=== PATIENT | male | born 1935 | race Caucasian/White ===

== ENCOUNTER 2017-10-14 19:23 | Inpatient (IN) | payer OTHER, BC ==
--- NOTE | 2017-10-14 21:11 | PDOC ---
History of Present Illness - General History Source: Patient Exam Limitations: No Limitations - History of Present Illness Initial Comments: 10/14/17 22:07 The patient is a 81 year old male with past medical history of Afib, CAD, CHF, HTN, Sleep Apnea, Renal Calculi and Diabetes Insipidus, who's currently on blood thinners, presents to the emergency department accompanied by her and son complaining of resolved nose bleeding. The patient reports he was picking his nose when the bleeding started, the son states they were unable to control the bleeding resulting in seeking care. The patients reports he was spitting up blood which can be secondary to the blood traveling to his mouth. The patient reports swelling to his lower extremities which started about 2 weeks ago. The patients reports they been to a wound clinic due to the drainage and was prescribed fluocinonide. The patients reports they have seen Dr. Lindsay for the foot swelling and was prescribed Lasix.The patient isnt on an oxygen machine at home.The reports he had a surgery on his leg with plates present. The patient denies chest pain, shortness of breath, headache and dizziness. Denies fever, chills, nausea, vomit, diarrhea and constipation. Denies dysuria, frequency, urgency and hematuria. Allergies: NKA Past surgical history: hypercholesterolemia. Social history: No reported PCP: Dr. Lindsay Ophthalmic Nurse: Dr. Mcdaniel <Shama Rowley - Last Filed: 10/14/17 22:17> <Zoila Harvey - Last Filed: 10/14/17 23:59> - General Chief Complaint: Nasal Bleeding Stated Complaint: NOSE BLEED Time Seen by Provider: 10/14/17 21:08 Past History <Shama Rowley - Last Filed: 10/14/17 22:17> - Past Medical History Cardiac Disorders: Yes (afib chf heart failure) Diabetes: Yes HTN: Yes Hypercholesterolemia: Yes - Surgical History Cardiac Surgery: Yes (pacemaker) - Immunization History Td Vaccination: Yes Immunization Up to Date: Yes - Suicide/Smoking/Psychosocial Hx Smoking Status: No Smoking History: Never smoked Years of Tobacco Use: 0 Have you smoked in the past 12 months: No Number of Cigarettes Smoked Daily: 0 Cigars Per Day: 0 Hx Alcohol Use: No Drug/Substance Use Hx: No Substance Use Type: None Hx Substance Use Treatment: No <Zoila Harvey - Last Filed: 10/14/17 23:59> - Past Medical History Allergies/Adverse Reactions: Allergies Allergy/AdvReac Type Severity Reaction Status Date / Time No Known Drug Allergies Allergy Verified 10/14/17 22:35 Home Medications: Ambulatory Orders Carvedilol [Coreg -] 25 mg PO BID #0 tablet 11/16/12 Digoxin [Lanoxin -] 0.125 mg PO DAILY #0 tablet 11/16/12 Enalapril Maleate [Vasotec -] 5 mg PO DAILY #0 tablet 11/16/12 Rivaroxaban [Xarelto -] 20 mg PO DAILY #0 tablet 11/16/12 Sitagliptin Phosphate [Januvia -] 100 mg PO DAILY@0700 #0 ud 11/16/12 metFORMIN HCL [Glucophage -] 1,000 mg PO BIDAC #0 tablet 11/16/12 Atorvastatin Ca [Lipitor -] 10 mg PO ASDIR 11/12/14 Furosemide [Lasix -] 40 mg PO BID 11/12/14 Glyburide [Micronase -] 5 mg PO BID 11/12/14 Oxycodone HCl/Acetaminophen [Percocet 5/325 -] 1 - 2 tab PO Q6H #20 tab Review of Systems - Review of Systems Comments:: 10/14/17 22:17 GENERAL/CONSTITUTIONAL: Little lethargic.. No fever or chills. No weakness. HEAD, EYES, EARS, NOSE AND THROAT: (+) Nose bleeding. No change in vision. No ear pain or discharge. No sore throat. CARDIOVASCULAR: No chest pain or shortness of breath. RESPIRATORY: No cough, wheezing, or hemoptysis. GASTROINTESTINAL: No nausea, vomiting, diarrhea or constipation. GENITOURINARY: No dysuria, frequency, or change in urination. MUSCULOSKELETAL: (+) swelling and redness to both legs. No neck or back pain. SKIN: No rash NEUROLOGIC: No headache, vertigo, loss of consciousness, or change in strength/ sensation. ENDOCRINE: No increased thirst. No abnormal weight change. HEMATOLOGIC/LYMPHATIC: No anemia, easy bleeding, or history of blood clots. ALLERGIC/IMMUNOLOGIC: No hives or skin allergy. <Shama Rowley - Last Filed: 10/14/17 22:17> *Physical Exam - Vital Signs Last Vital Signs Temp Pulse Resp BP Pulse Ox 98.7 F 63 17 105/55 99 10/14/17 21:05 10/14/17 21:05 10/14/17 21:05 10/14/17 21:05 10/14/17 21:05 - Physical Exam Comments: 10/14/17 22:17 GENERAL: (+) sleepy but arousal. Awake, alert, and fully oriented, in no acute distress HEAD: No signs of trauma EYES: PERRLA, EOMI, sclera anicteric, conjunctiva clear ENT: (+) Simultaneously bleeding from both nares (+) Old blood on the posterior pharynx. Auricles normal inspection, hearing grossly normal, nares patent, Moist mucosa NECK: Normal ROM, supple, no lymphadenopathy, JVD, or masses LUNGS: Breath sounds equal, clear to auscultation bilaterally. No wheezes, and no crackles HEART: (+) Irregularly irregular. normal S1 and S2, no murmurs, rubs or gallops ABDOMEN: Soft, nontender, normoactive bowel sounds. No guarding, no rebound. No masses EXTREMITIES: (+)Lymphangitis on the left. (+) Bilateral lower leg edema. Left larger than right in warmth, redness and swelling. No clubbing or cyanosis. No cords, erythema, or tenderness NEUROLOGICAL: Cranial nerves II through XII grossly intact. SKIN: Warm, Dry, normal turgor, no rashes or lesions noted. <Shama Rowley - Last Filed: 10/14/17 22:17> Heart Score/ECG Review - ECG Intrepretation Comment:: 10/14/17 23:28 afib at 63, rbbb, pvc, no acute changes <Zoila Harvey - Last Filed: 10/14/17 23:59> ED Treatment Course - LABORATORY CBC & Chemistry Diagram: 10/14/17 20:22 10/14/17 20:22 <Zoila Harvey - Last Filed: 10/14/17 23:59> Medical Decision Making - Medical Decision Making 10/14/17 21:51 a/p: 81yo male with nasal bleeding on xarelto - nut also with sleepiness, noncompliant with cpap, LE edema/cellulitis with lymphangitic spread -will check labs -no active nasal bleeding at this time -old dried blood -concern for LE edema/cellulitis with lymphangitic spread -will check labs/cultures/lactate/vbg -will start abx - vanc/zosyn -will check ekg, cxr -will monitor and reassess 10/14/17 23:24 pt with mild hypercapnic resp failure -will give nebs -labs reviewed abx ordered cultures sent will need admission for further eval 10/14/17 23:26 will give lasix also for leg edema 10/14/17 23:59 case discussed with Luda from - accepts pt to service <Zoila Harvey - Last Filed: 10/14/17 23:59> *DC/Admit/Observation/Transfer - Attestations Scribe Attestion: 10/14/17 22:18 Documentation prepared by Shama Rowley, acting as medical hospital sales for Zoila Harvey DO. <Shama Rowley - Last Filed: 10/14/17 22:17> - Discharge Dispostion Admit: Yes - Attestations Physician Attestion: 10/14/17 23:26 I, Dr. Zoila Harvey DO, attest that this document has been prepared under my direction and personally reviewed by me in its entirety. I further attest, that it accurately reflects all work, treatment, procedures and medical decision -making performed by me. <Zoila Harvey - Last Filed: 10/14/17 23:59> Diagnosis at time of Disposition: Hypercapnic acidosis, Cellulitis - Discharge Dispostion Condition at time of disposition: Fair - Referrals Referrals: Stanislav Lindsay MD [Primary Care Provider] -
[2017-10-14] MEDS ORDERED: VANCOMYCIN 1,000 MG in DEXTROSE 5%-WATER - 250 ML IVPB ONE (21:21)
[2017-10-14] MEDS ORDERED: VANCOMYCIN 1 GRAM (PRE-DOCKED) 1,000 MG/250 ML BAG IVPB ONE (21:58)
[2017-10-14 22:29] LABS: BASO % 0.3 % (0-2.0); EOS % 2.7 % (0-4.5); HEMATOCRIT 32.3 % (35.4-49); HEMOGLOBIN 10.9 GM/dL (11.7-16.9); LYMPH % 14.3 % (8-40); MCH 29.2 pg (25.7-33.7); MCHC 33.7 g/dl (32.0-35.9); MEAN CELL VOLUME 86.6 fl (80-96); MEAN PLT VOLUME 10.2 fl (7.5-11.1); NEUT % 71.7 % (42.8-82.8); PLATELET COUNT 133 K/MM3 (134-434); RBC 3.73 M/mm3 (4.00-5.60)
[2017-10-14 22:32] LABS: URINE APPEARANCE CLEAR; URINE BILIRUBIN NEGATIVE (<2.0 mg/dL); URINE COLOR LTYELLOW; URINE GLUCOSE (UA) NEGATIVE (NEGATIVE); URINE KETONE NEGATIVE (NEGATIVE); URINE LEUK ESTERASE NEGATIVE (NEGATIVE); URINE NITRITE NEGATIVE (NEGATIVE); URINE PROTEIN NEGATIVE (NEGATIVE)
[2017-10-14 22:37] LABS: EPI CELLS RARE /HPF (FEW); URINE HYALINE CAST 3 /lpf; URINE MUCUS RARE
[2017-10-14 22:45] LABS: INR 2.44 (0.82-1.09); PROTHROMBIN TIME (PATIENT) 27.6 SEC (9.98-11.88)
[2017-10-14 22:48] LABS: ACTIVATED PTT 45.1 SECONDS (26.9-34.4)
[2017-10-14 23:00] LABS: VENOUS PC02 56.4 mmHg (38-52); VENOUS PH 7.34 (7.32-7.42); VENOUS PO2 24.6 mmHg (28-48)
[2017-10-14 23:04] LABS: ALBUMIN 3.7 g/dl (3.4-5.0); ALK PHOS 197 U/L (45-117); ANION GAP 8 (8-16); BILIRUBIN,TOTAL 1.1 mg/dL (0.2-1.0); BLOOD UREA NITROGEN 38 mg/dL (7-18); CALCIUM 8.6 mg/dL (8.5-10.1); CHLORIDE 101 mmol/L (98-107); CO2 29 mmol/L (21-32); CREATININE 1.3 mg/dL (0.7-1.3); GLUCOSE,RANDOM 99 mg/dL (74-106); POTASSIUM 4.6 mmol/L (3.5-5.1); SGOT/AST 19 U/L (15-37); SGPT/ALT 16 U/L (12-78); SODIUM 138 mmol/L (136-145); TOT PROT 7.3 g/dl (6.4-8.2)
[2017-10-14] MEDS ORDERED: ALBUTEROL SO4 2.5/IPRATROPIUM 0.5 INH SOL 3 ML VIAL.NEB. NEB ONE ×2 (23:23→23:55)
[2017-10-14] MEDS ORDERED: FUROSEMIDE 40 MG/4 ML INJECTABLE VIAL IVPUSH ONE (23:27)
[2017-10-14] MEDS ORDERED: FUROSEMIDE 40 MG/4 ML INJECTABLE VIAL ONE (23:55)
[2017-10-15] MEDS ORDERED: ATORVASTATIN CA 20 MG TABLET (FP) PO SCH (00:30)
[2017-10-15] MEDS ORDERED: AMPICILLIN NA/SULBACTAM NA 1.5 GM in SODIUM CHLORIDE 100 ML IVPB SCH ×2 (00:45→08:59)
--- NOTE | 2017-10-15 01:17 | HP ---
CHIEF COMPLAINT: nose bleed PCP: HISTORY OF PRESENT ILLNESS: This is a 81 year old obese, non compliant male with a significant medical history of chf, atrial fibrillation on xarelto, who presented to ER due to nosebleed. Patient was picking his nose and as per family, would not stop bleeding. Bleeding stopped while in ER. Upon PE exam in ER, there was were concern for bilateral LE erythema and swelling. As per family he has not been ambulating well. He has been having the swelling for a few weeks. The erythema has been progressing for the past few days. He saw his primary for this reason and was told to increase his lasix dose. He denies fever, chills, any history of skin infection. He has been treated in wound clinic in the past for LE ulcer , 1 yr ago. ER course was notable for: elevated bnp; CXR with cardiomegaly and right effusion; slight hypercapnia on vbg Recent Travel: no PAST MEDICAL HISTORY: chf, atrial fibrillation on xarelto, DM, htn, hld, CONSTANTINO PAST SURGICAL HISTORY: Social History: Smoking:no Alcohol:no Drugs: no Family History: Allergies No Known Drug Allergies Allergy (Verified 10/14/17 22:35) HOME MEDICATIONS: Home Medications Medication Instructions Recorded Carvedilol [Coreg -] 25 mg PO BID #0 tablet 11/16/12 Digoxin [Lanoxin -] 0.125 mg PO DAILY #0 tablet 11/16/12 Enalapril Maleate [Vasotec -] 5 mg PO DAILY #0 tablet 11/16/12 Rivaroxaban [Xarelto -] 20 mg PO DAILY #0 tablet 11/16/12 Sitagliptin Phosphate [Januvia -] 100 mg PO DAILY@0700 #0 ud 11/16/12 metFORMIN HCL [Glucophage -] 1,000 mg PO BIDAC #0 tablet 11/16/12 Atorvastatin Ca [Lipitor -] 10 mg PO ASDIR 11/12/14 Furosemide [Lasix -] 40 mg PO BID 11/12/14 Glyburide [Micronase -] 5 mg PO BID 11/12/14 Oxycodone HCl/Acetaminophen 1 - 2 tab PO Q6H #20 tab 01/15/15 [Percocet 5/325 -] REVIEW OF SYSTEMS CONSTITUTIONAL: Absent: fever, chills, diaphoresis, generalized weakness, malaise, loss of appetite, weight change HEENT: Absent: rhinorrhea, nasal congestion, throat pain, throat swelling, difficulty swallowing, mouth swelling, ear pain, eye pain, visual changes CARDIOVASCULAR: Positive: LE edema Absent: chest pain, syncope, palpitations, irregular heart rate, lightheadedness RESPIRATORY: Positive: dyspnea with exertion, orthopnea Absent: cough, shortness of breath,, wheezing, stridor, hemoptysis GASTROINTESTINAL: Absent: abdominal pain, abdominal distension, nausea, vomiting, diarrhea, constipation, melena, hematochezia GENITOURINARY: Absent: dysuria, frequency, urgency, hesitancy, hematuria, flank pain, genital pain MUSCULOSKELETAL: Absent: myalgia, arthralgia, joint swelling, back pain, neck pain SKIN: Positive: LE redness, Absent: rash, itching, pallor HEMATOLOGIC/IMMUNOLOGIC: Absent: easy bleeding, easy bruising, lymphadenopathy, frequent infections ENDOCRINE: Absent: unexplained weight gain, unexplained weight loss, heat intolerance, cold intolerance NEUROLOGIC: Absent: headache, focal weakness or paresthesias, dizziness, unsteady gait, seizure, mental status changes, bladder or bowel incontinence PSYCHIATRIC: Absent: anxiety, depression, suicidal or homicidal ideation, hallucinations. PHYSICAL EXAMINATION Vital Signs - 24 hr 10/14/17 10/15/17 21:05 00:05 Temperature 98.7 F 97.6 F Pulse Rate 63 Pulse Rate [ 63 Apical] Respiratory 17 17 Rate Blood Pressure 105/55 Blood Pressure 106/56 [Right Arm] O2 Sat by Pulse 99 93 L Oximetry (%) GENERAL: obese; sitting up in bed; Awake, kind of slow to answer questions Nose: crusted dried blood LUNGS: very decreased bs; no air movement; may be body habitus; HEART: Regular rate and rhythm, normal S1 and S2 without murmur, rub or gallop. ABDOMEN: obese; nt; nd; bs+ UPPER EXTREMITIES: 2+ pulses, warm, well-perfused. No cyanosis. No clubbing. No peripheral edema. LOWER EXTREMITIES: 2+ pulses, warm, well-perfused. No calf tenderness. bilateral peripheral edema with erythema extending to b/l knee; left LE swelling > right ; NEUROLOGICAL: Cranial nerves II-XII intact. decreased sensation of the right foot; muscle strength of LE 3/5; UE muscle groups 5/5; reflexes no attainable due to swelling; pedal pulses not palpable PSYCHIATRIC: Cooperative. Good eye contact. Appropriate mood and affect. SKIN: b/l LE erythema Laboratory Results - last 24 hr 10/14/17 10/14/17 10/14/17 20:22 20:22 20:22 WBC 9.0 RBC 3.73 L Hgb 10.9 L D Hct 32.3 L D MCV 86.6 MCH 29.2 MCHC 33.7 RDW 17.0 H Plt Count 133 L MPV 10.2 Neutrophils % 71.7 Lymphocytes % 14.3 Monocytes % 11.0 H Eosinophils % 2.7 D Basophils % 0.3 PT with INR 27.60 H INR 2.44 H PTT (Actin FS) 45.1 H D VBG pH POC VBG pCO2 POC VBG pO2 Mixed VBG HCO3 Sodium 138 Potassium 4.6 Chloride 101 Carbon Dioxide 29 D Anion Gap 8 BUN 38 H D Creatinine 1.3 D Creat Clearance w eGFR 53.25 Random Glucose 99 D Lactic Acid Calcium 8.6 Total Bilirubin 1.1 H D AST 19 ALT 16 D Alkaline Phosphatase 197 H Creatine Kinase Troponin I B-Natriuretic Peptide Total Protein 7.3 D Albumin 3.7 D Urine Color Urine Appearance Urine pH Ur Specific [place] Urine Protein Urine Glucose (UA) Urine Ketones Urine Blood Urine Nitrite Urine Bilirubin Urine Urobilinogen Ur Leukocyte Esterase Urine WBC (Auto) Urine RBC (Auto) Ur Epithelial Cells Hyaline Casts Urine Mucus Blood Type Antibody Screen 10/14/17 10/14/17 10/14/17 20:22 20:22 20:22 WBC RBC Hgb Hct MCV MCH MCHC RDW Plt Count MPV Neutrophils % Lymphocytes % Monocytes % Eosinophils % Basophils % PT with INR INR PTT (Actin FS) VBG pH POC VBG pCO2 POC VBG pO2 Mixed VBG HCO3 Sodium Potassium Chloride Carbon Dioxide Anion Gap BUN Creatinine Creat Clearance w eGFR Random Glucose Lactic Acid Calcium Total Bilirubin AST ALT Alkaline Phosphatase Creatine Kinase 86 Troponin I < 0.02 D B-Natriuretic Peptide Total Protein Albumin Urine Color Ltyellow Urine Appearance Clear Urine pH 5.0 Ur Specific [place] 1.010 Urine Protein Negative Urine Glucose (UA) Negative Urine Ketones Negative Urine Blood 3+ H Urine Nitrite Negative Urine Bilirubin Negative Urine Urobilinogen 2.0 Ur Leukocyte Esterase Negative Urine WBC (Auto) 3 Urine RBC (Auto) 180 Ur Epithelial Cells Rare Hyaline Casts 3 Urine Mucus Rare Blood Type A POSITIVE Antibody Screen Negative 10/14/17 10/14/17 10/14/17 20:22 20:22 22:28 WBC RBC Hgb Hct MCV MCH MCHC RDW Plt Count MPV Neutrophils % Lymphocytes % Monocytes % Eosinophils % Basophils % PT with INR INR PTT (Actin FS) VBG pH 7.34 POC VBG pCO2 56.4 H POC VBG pO2 24.6 L Mixed VBG HCO3 29.3 H Sodium Potassium Chloride Carbon Dioxide Anion Gap BUN Creatinine Creat Clearance w eGFR Random Glucose Lactic Acid 1.1 Calcium Total Bilirubin AST ALT Alkaline Phosphatase Creatine Kinase Troponin I B-Natriuretic Peptide 1679.42 H Total Protein Albumin Urine Color Urine Appearance Urine pH Ur Specific [place] Urine Protein Urine Glucose (UA) Urine Ketones Urine Blood Urine Nitrite Urine Bilirubin Urine Urobilinogen Ur Leukocyte Esterase Urine WBC (Auto) Urine RBC (Auto) Ur Epithelial Cells Hyaline Casts Urine Mucus Blood Type Antibody Screen ASSESSMENT/PLAN: This is a 81 year old male, who is somewhat non complaint according to his family, with a history of chf, DM, atrial fib on xarelto, who presented with a nosebleed which resolved, but found to have significant LE swelling and erythema. Looks to be more of a venous insufficiency with possible dvt, and cellulitis. #bilateral LE swelling and erythema: -will get venous doppler to r/o dvt -arterial dopplers to eval for vascular disease -IV lasix; r/o acute chf -vascular consult -will treat for cellulitis with IV unasyn; no hx of Mrsa or any other skin infection -consult id #nosebleed resolved; cont xarelto #atrial fibrillation -cont AC -rate controlled #chf; acute exacerbation? -slightly elevated bnp -auscultation limited due to body habitus -cxr with right effusion and cardio megaly -will treat for a day of IV lasix; monitor cr; -echo -cardio consulted #elevated co2 on vbg -most lieky chronic due to CONSTANTINO -cpap overnight #htn: -cont home meds #DM: -insulin ss; bgm #hld : cont statin DVT: heparin sq physical therapy disposition: inpt tele Visit type - Emergency Visit Emergency Visit: Yes Care time: The patient presented to the Emergency Department on the above date and was hospitalized for further evaluation of their emergent condition. - New Patient This patient is new to me today: Yes Date on this admission: 10/15/17 - Critical Care Critical Care patient: No Hospitalist Screening - Colonoscopy Questionnaire Colonoscopy Questionnaire: Colonoscopy Questionnaire - Patient: 50 - 75 years old and never had a screening colonoscopy: Unknown History of colon or rectal polyps, or CA: Unknown History of IBD, Crohn's disease or UC: Unknown History of abdominal radiation therapy as a child: Unknown - Relative: 1 with colon or rectal CA, or polyps at age 60 or younger: Unknown Colon or rectal CA diagnosed at age 45 or younger: Unknown Multiple relatives with colon or rectal CA: Unknown - Outcome: Screening Result: Negative Screen
[2017-10-15] MEDS ORDERED: ATORVASTATIN CA 80 MG TABLET (FP) ONE (01:30)
--- NOTE | 2017-10-15 02:45 | PN ---
Teaching Attending Note Name of Resident: Kelsey Sarkar ATTENDING PHYSICIAN STATEMENT I saw and evaluated the patient. I reviewed the resident's note and discussed the case with the resident. I agree with the resident's findings and plan as documented. SUBJECTIVE: 81M pmh CHF Afib presents to ER with epistaxis that has since spontaneously resolved. Was fue to mechanical trauma from picking at nose. In ED he is found to have significant LE swelling and redness of the left leg that patietn reports has been going on for a few days now. OBJECTIVE: Gen: NAD AAOx3 Lungs: decreased BS bilaterally, obese CV: cardiac device SAMUEL chest wall, RRR no m/r/g Abd: soft, NTND Ext: 3+ edema bilaterally L>R. erythema of left lower leg with spreading up the inner thigh BNP 1600 CXR: Rt side opacities ASSESSMENT AND PLAN: 81M with possible cellulitis LLE , not septic, mild decompensated HF, and resolved epistaxis likely from Xarelto start IV Unasyn, ID eval follow up venous doppler to r/o DVT Vascular surgery eval start IV lasix 40q12 ECHO Afib - continue xarelto, Cardiology eval
[2017-10-15 04:58] VITALS: BMI 37.3
[2017-10-15] MEDS ORDERED: FUROSEMIDE 40 MG/4 ML INJECTABLE VIAL IVPUSH SCH (06:00)
[2017-10-15] MEDS: INSULIN SLIDING SCALE (NOVOLOG) 1 VIAL SQ SCH ×4 (06:54→21:44)
[2017-10-15] MEDS ORDERED: INSULIN SLIDING SCALE (NOVOLOG) 1 VIAL SQ SCH (07:00)
--- NOTE | 2017-10-15 09:01 | PN ---
Progress Note (short form) - Note Progress Note: ID consult dictated imp/reccd 81 year old man [facility] afib, CAD, CHF on elequis admitted with a nosebleed that stopped spontaneously of note he has had worsening swelling of both legs over the last several weeks no fevers or chills +erythema saw his PMD who increased his lasix dose went to woundcare and was given steroid creams? now with increased erythema of both legs no fevers no history of resistant organisms denies cough or sob sleeps with 2-3 pillws chronically cellulitis volume overload/venous stasis CHF cultures pending can switch to cefazoliln elevate legs diurese cardiology/vascular to see Problem List - Problems (1) Cellulitis Code(s): L03.90 - CELLULITIS, UNSPECIFIED (2) Volume overload Code(s): E87.70 - FLUID OVERLOAD, UNSPECIFIED (3) Venous stasis Code(s): I87.8 - OTHER SPECIFIED DISORDERS OF VEINS (4) CHF (congestive heart failure) Code(s): I50.9 - HEART FAILURE, UNSPECIFIED
--- NOTE | 2017-10-15 09:52 | EKG ---
Test Reason : Blood Pressure : / mmHG Vent. Rate : 061 BPM Atrial Rate : 241 BPM P-R Int : 000 ms QRS Dur : 156 ms QT Int : 486 ms P-R-T Axes : 000 -70 017 degrees QTc Int : 489 ms ATRIAL FIBRILLATION WITH PREMATURE VENTRICULAR OR ABERRANTLY CONDUCTED COMPLEXES LEFT AXIS DEVIATION RIGHT BUNDLE BRANCH BLOCK INFERIOR INFARCT (CITED ON OR BEFORE 13-SEP-2006) ANTERIOR INFARCT (CITED ON OR BEFORE 22-MAY-2011) ABNORMAL ECG Confirmed by CALLIE HILL MD ([id number]) on 10/15/2017 9:51:58 AM Referred By: Confirmed By:CALLIE HILL MD
--- NOTE | 2017-10-15 09:57 | CONS ---
DATE OF CONSULTATION: DATE OF DICTATION: 10/15/2017 REQUESTING PHYSICIAN: The hospitalist service. This is a 81-year-old man with a past medical history of atrial fibrillation, CAD, CHF on Eliquis. He presented to the ER with a nosebleed after he had apparently been touching his nose. The nosebleed stopped spontaneously. He was noted to have bilateral erythema of his legs which has been worsening. About 2-3 weeks back he saw his PMD with worsening lower extremity edema. His Lasix dose was increased. He went to Wound Care as well because he had some drainage. They gave him apparently some topical steroids. He noted worsening erythema, but he came to the ER really for the nosebleed. He denies any fevers or chills. He denies any cough or shortness of breath. He sleeps with 2-3 pillows chronically. PAST MEDICAL HISTORY: Notable for history of atrial fibrillation, coronary artery disease, diabetes, hypertension, hyperlipidemia, obstructive sleep apnea, and nephrolithiasis. PAST SURGICAL HISTORY: Notable for pacemaker as well as he has had a left ankle fracture many years ago. FAMILY HISTORY: Noncontributory. ALLERGIES: He has no known drug allergies. MEDICATIONS: His medications at home include Coreg, Lanoxin, Vasotec, Xarelto, Januvia, Glucophage, Lipitor, Lasix, Micronase, and Percocet. SOCIAL HISTORY: There is no history of any cigarette or substance use. He is retired. He lives at home with his . There is no history of any recent travel. REVIEW OF SYSTEMS: He notes worsening edema of his legs. PHYSICAL EXAMINATION: General: He is awake and alert. Vital Signs: Temperature is 98.6. Pulse is 73. Blood pressure 112/59. Respiratory rate is 19. He weighs 275 pounds. Saturating 96% on room air. HEENT: He is normocephalic. His eyes are anicteric. He has some dried blood crusted on his nose. His mouth is clear. There is no blood in his mouth. Cardiovascular: His heart is irregularly irregular. Respiratory: His lungs have diminished breath sounds at the bases. Gastrointestinal: His abdomen is protuberant, obese. I cannot appreciate any hepatosplenomegaly. Extremities: He has 2+ pitting edema bilaterally extending up to below his knees. He has venous stasis changes and erythema of both legs. LABORATORY: His labs are notable for a white count of 9, hemoglobin 10.9. Platelets are 133. BUN and creatinine are 38 and 1.3. Lactic acid is 1.1. Urinalysis is negative for leukocyte esterase. Cultures are pending. Duplex is negative for DVT. SUMMARY: This is a 81-year-old man with cellulitis, volume overload, venous stasis, and congestive heart failure. Cultures are pending. Can switch him to cefazolin. There is no history of resistant organisms. Would elevate his legs, diurese. Cardiology and Vascular to see. Further recommendations to follow based on his clinical course. ARGENIS BENITEZ M.D. [id number]
[2017-10-15] MEDS ORDERED: FUROSEMIDE 40 MG TABLET (FP) PO SCH (10:00)
[2017-10-15] MEDS: CEFAZOLIN 2 GM/D5W 2 GM/50 ML ML IVPB SCH ×2 (10:58→18:17)
[2017-10-15] MEDS: RIVAROXABAN 20 MG TABLET PO SCH (10:58)
[2017-10-15] MEDS: DIGOXIN 0.125 MG TABLET (FP) PO SCH (10:58)
[2017-10-15] MEDS: ENALAPRIL MALEATE 5 MG TABLET (FP) PO SCH (10:59)
[2017-10-15] MEDS: CARVEDILOL 25 MG TABLET (FP) PO SCH ×2 (10:59→21:44)
--- NOTE | 2017-10-15 11:23 | CON.CARD ---
Cardiology Consult (text) - Consultation Consultation Note: cc: nose bleed hpi: 81 m hx syst chf (bi-v failure, NICM), icd, afib, htn, hld, dm, here with nose bleed. Came to er due to nose bleed after picking nose. This resolved but noted to have b/l le cellulitis so admitted. Pt reports le edema present past 2 weeks. No cp, sob, palps, dizzy, loc, pnd, orthopnea. Sees dr davis for cardio. pmh: per hpi psh: icd social: no tob fam: no premature cad, scd ros: per hpi; no nvd, fver, cough, sahu, vision changes, gib, heamturia, dysuria meds: Home Medications Medication Instructions Recorded Atorvastatin Ca [Lipitor] 80 mg PO HS 10/15/17 Carvedilol [Coreg -] 25 mg PO BID 10/15/17 Digoxin [Lanoxin -] 0.125 mg PO DAILY 10/15/17 Enalapril Maleate [Vasotec -] 2.5 mg PO DAILY 10/15/17 Furosemide [Lasix] 80 mg PO BID 10/15/17 Glyburide 5 mg PO DAILY 10/15/17 Metformin HCl [Glucophage] 1,000 mg PO BID 10/15/17 Pioglitazone HCl 30 mg PO DAILY 10/15/17 Rivaroxaban [Xarelto -] 20 mg PO DAILY 10/15/17 Sitagliptin Phosphate [Januvia] 100 mg PO DAILY 10/15/17 pe: Vital Signs Period Temp Pulse Resp BP Sys/Lambert Pulse Ox Last 24 Hr 97.6 F-98.7 F 63-78 17-21 105-143/51-59 93-99 nad +jvd irreg, s1s2 no mrg dec bs bases, nl eff no jaundice diaphores pos dp pt 1-2+ le edema bl with b/l le cellulitis abd nt nd pos bs aaox3 Laboratory Last Values WBC 9.0 K/mm3 (4.0-10.0) 10/14/17 20:22 RBC 3.73 M/mm3 (4.00-5.60) L 10/14/17 20:22 Hgb 10.9 GM/dL (11.7-16.9) L D 10/14/17 20:22 Hct 32.3 % (35.4-49) L D 10/14/17 20:22 MCV 86.6 fl (80-96) 10/14/17 20: MCH 29.2 pg (25.7-33.7) 10/14/17 20: MCHC 33.7 g/dl (32.0-35.9) 10/14/17 20: RDW 17.0 % (11.9-15.9) H 10/14/17 20: Plt Count 133 K/MM3 (134-434) L 10/14/17 20: MPV 10.2 fl (7.5-11.1) 10/14/17 20: Neutrophils % 71.7 % (42.8-82.8) 10/14/17: Lymphocytes % 14.3 % (8-40) 10/14/17: Monocytes % 11.0 % (3.8-10.2) H 10/14/17: Eosinophils % 2.7 % (0-4.5) D 10/14/17: Basophils % 0.3 % (0-2.0) 10/14/17: PT with INR 27.60 SEC (9.98-11.88) H 10/14/17 20: INR 2.44 (0.82-1.09) H 10/14/17 20: PTT (Actin FS) 45.1 SECONDS (26.9-34.4) H D 10/14/17 20: VBG pH 7.34 (7.32-7.42) 10/14/17 20:22 POC VBG pCO2 56.4 mmHg (38-52) H 10/14/17 20:22 POC VBG pO2 24.6 mmHg (28-48) L 10/14/17 20: Mixed VBG HCO3 29.3 meq/L (19-25) H 10/14/17 20:22 Sodium 138 mmol/L (136-145) 10/14/17 20:22 Potassium 4.6 mmol/L (3.5-5.1) 10/14/17 20:22 Chloride 101 mmol/L (98-107) 10/14/17 20:22 Carbon Dioxide 29 mmol/L (21-32) D 10/14/17 20:22 Anion Gap 8 (8-16) 10/14/17 20:22 BUN 38 mg/dL (7-18) H D 10/14/17 20:22 Creatinine 1.3 mg/dL (0.7-1.3) D 10/14/17 20:22 Creat Clearance w eGFR 53.25 (>60) 10/14/17 20:22 POC Glucometer 85 UNITS (80-120) 10/15/17 05:13 Random Glucose 99 mg/dL (74-106) D 10/14/17 20:22 Lactic Acid 1.1 mmol/L (0.0-2.0) 10/14/17 22:28 Calcium 8.6 mg/dL (8.5-10.1) 10/14/17 20:22 Total Bilirubin 1.1 mg/dL (0.2-1.0) H D 10/14/17 20:22 AST 19 U/L (15-37) 10/14/17 20:22 ALT 16 U/L (12-78) D 10/14/17 20:22 Alkaline Phosphatase 197 U/L (45-117) H 10/14/17 20:22 Creatine Kinase 86 IU/L (39-308) 10/14/17 20:22 Troponin I < 0.02 ng/ml (0.00-0.05) D 10/14/17 20:22 B-Natriuretic Peptide 1679.42 pg/ml (5-450) H 10/14/17 20:22 Total Protein 7.3 g/dl (6.4-8.2) D 10/14/17 20:22 Albumin 3.7 g/dl (3.4-5.0) D 10/14/17 20:22 Urine Color Ltyellow 10/14/17 20:22 Urine Appearance Clear 10/14/17 20:22 Urine pH 5.0 (5.0-8.0) 10/14/17 20:22 Ur Specific Terrell 1.010 (1.001-1.035) 10/14/17 20:22 Urine Protein Negative (NEGATIVE) 10/14/17 20:22 Urine Glucose (UA) Negative (NEGATIVE) 10/14/17 20:22 Urine Ketones Negative (NEGATIVE) 10/14/17 20:22 Urine Blood 3+ (NEGATIVE) H 10/14/17 20:22 Urine Nitrite Negative (NEGATIVE) 10/14/17 20:22 Urine Bilirubin Negative (<2.0 mg/dL) 10/14/17 20:22 Urine Urobilinogen 2.0 mg/dL (0.2-1.0) 10/14/17 20:22 Ur Leukocyte Esterase Negative (NEGATIVE) 10/14/17 20:22 Urine WBC (Auto) 3 /hpf (3-5) 10/14/17 20:22 Urine RBC (Auto) 180 /hpf (0-3) 10/14/17 20:22 Ur Epithelial Cells Rare /HPF (FEW) 10/14/17 20:22 Hyaline Casts 3 /lpf 10/14/17 20: Urine Mucus Rare 10/14/17 20:22 Blood Type A POSITIVE 10/14/17 20:22 Antibody Screen Negative 10/14/17 20:22 echo 10/2012: lve, sev dec lvef, rve (no mention of fcn), laure, mod mr/tr tele: afib, occ vp data ecg: afib, rate ok, rbbb cxr: no chf a/p: 81 m hx syst chf (bi-v failure, NICM), icd, afib, htn, hld, dm, here with le cellulitis. acute syst chf: -has significant le edema with cellulitis (cont abx per ID) -cont iv lasix 40 bid, may need to increase dose depending on response to diuresis -daily wts, bmp -check updated echo -cont home dread, coreg, dig -routine outpt icd checks -no signs acs afib: -rate ok on dig, coreg. check dig level -cont xarelto htn: -cont home meds hld: -cont statin
--- NOTE | 2017-10-15 14:44 | PN ---
Physical Exam: SUBJECTIVE: Patient seen and examined No acute events overnight. Patient continues to have lower extremity edema. Nosebleeding has resolved OBJECTIVE: Vital Signs Period Temp Pulse Resp BP Sys/Lambert Pulse Ox Last 24 Hr 97.6 F-98.7 F 63-78 17-21 105-143/51-59 93-99 GENERAL: obese; sitting up in bed; Awake, kind of slow to answer questions Nose: crusted dried blood LUNGS: very decreased bs; b/l crackles @ both bases HEART: Irregularly irregular, normal S1 and S2 without murmur, rub or gallop. ABDOMEN: obese; nt; nd; bs+ UPPER EXTREMITIES: 2+ pulses, warm, well-perfused. No cyanosis. No clubbing. No peripheral edema. LOWER EXTREMITIES: 2+ pulses, warm, well-perfused. No calf tenderness. bilateral peripheral edema with erythema extending to b/l knee; Oozing from bl extremities NEUROLOGICAL: Cranial nerves II-XII intact. decreased sensation of the right foot; muscle strength of LE 3/5; UE muscle groups 5/5 PSYCHIATRIC: Cooperative. Good eye contact. Appropriate mood and affect. SKIN: b/l LE erythema Laboratory Results - last 24 hr 10/14/17 10/14/17 10/14/17 20:22 20:22 20:22 WBC 9.0 RBC 3.73 L Hgb 10.9 L D Hct 32.3 L D MCV 86.6 MCH 29.2 MCHC 33.7 RDW 17.0 H Plt Count 133 L MPV 10.2 Neutrophils % 71.7 Lymphocytes % 14.3 Monocytes % 11.0 H Eosinophils % 2.7 D Basophils % 0.3 PT with INR 27.60 H INR 2.44 H PTT (Actin FS) 45.1 H D VBG pH POC VBG pCO2 POC VBG pO2 Mixed VBG HCO3 Sodium 138 Potassium 4.6 Chloride 101 Carbon Dioxide 29 D Anion Gap 8 BUN 38 H D Creatinine 1.3 D Creat Clearance w eGFR 53.25 POC Glucometer Random Glucose 99 D Lactic Acid Calcium 8.6 Total Bilirubin 1.1 H D AST 19 ALT 16 D Alkaline Phosphatase 197 H Creatine Kinase Troponin I B-Natriuretic Peptide Total Protein 7.3 D Albumin 3.7 D Urine Color Urine Appearance Urine pH Ur Specific [place] Urine Protein Urine Glucose (UA) Urine Ketones Urine Blood Urine Nitrite Urine Bilirubin Urine Urobilinogen Ur Leukocyte Esterase Urine WBC (Auto) Urine RBC (Auto) Ur Epithelial Cells Hyaline Casts Urine Mucus Blood Type Antibody Screen 10/14/17 10/14/17 10/14/17 20:22 20:22 20:22 WBC RBC Hgb Hct MCV MCH MCHC RDW Plt Count MPV Neutrophils % Lymphocytes % Monocytes % Eosinophils % Basophils % PT with INR INR PTT (Actin FS) VBG pH POC VBG pCO2 POC VBG pO2 Mixed VBG HCO3 Sodium Potassium Chloride Carbon Dioxide Anion Gap BUN Creatinine Creat Clearance w eGFR POC Glucometer Random Glucose Lactic Acid Calcium Total Bilirubin AST ALT Alkaline Phosphatase Creatine Kinase 86 Troponin I < 0.02 D B-Natriuretic Peptide Total Protein Albumin Urine Color Ltyellow Urine Appearance Clear Urine pH 5.0 Ur Specific [place] 1.010 Urine Protein Negative Urine Glucose (UA) Negative Urine Ketones Negative Urine Blood 3+ H Urine Nitrite Negative Urine Bilirubin Negative Urine Urobilinogen 2.0 Ur Leukocyte Esterase Negative Urine WBC (Auto) 3 Urine RBC (Auto) 180 Ur Epithelial Cells Rare Hyaline Casts 3 Urine Mucus Rare Blood Type A POSITIVE Antibody Screen Negative 10/14/17 10/14/17 10/14/17 20:22 20:22 22:28 WBC RBC Hgb Hct MCV MCH MCHC RDW Plt Count MPV Neutrophils % Lymphocytes % Monocytes % Eosinophils % Basophils % PT with INR INR PTT (Actin FS) VBG pH 7.34 POC VBG pCO2 56.4 H POC VBG pO2 24.6 L Mixed VBG HCO3 29.3 H Sodium Potassium Chloride Carbon Dioxide Anion Gap BUN Creatinine Creat Clearance w eGFR POC Glucometer Random Glucose Lactic Acid 1.1 Calcium Total Bilirubin AST ALT Alkaline Phosphatase Creatine Kinase Troponin I B-Natriuretic Peptide 1679.42 H Total Protein Albumin Urine Color Urine Appearance Urine pH Ur Specific [place] Urine Protein Urine Glucose (UA) Urine Ketones Urine Blood Urine Nitrite Urine Bilirubin Urine Urobilinogen Ur Leukocyte Esterase Urine WBC (Auto) Urine RBC (Auto) Ur Epithelial Cells Hyaline Casts Urine Mucus Blood Type Antibody Screen 10/15/17 10/15/17 05:13 12:31 WBC RBC Hgb Hct MCV MCH MCHC RDW Plt Count MPV Neutrophils % Lymphocytes % Monocytes % Eosinophils % Basophils % PT with INR INR PTT (Actin FS) VBG pH POC VBG pCO2 POC VBG pO2 Mixed VBG HCO3 Sodium Potassium Chloride Carbon Dioxide Anion Gap BUN Creatinine Creat Clearance w eGFR POC Glucometer 85 111 Random Glucose Lactic Acid Calcium Total Bilirubin AST ALT Alkaline Phosphatase Creatine Kinase Troponin I B-Natriuretic Peptide Total Protein Albumin Urine Color Urine Appearance Urine pH Ur Specific [place] Urine Protein Urine Glucose (UA) Urine Ketones Urine Blood Urine Nitrite Urine Bilirubin Urine Urobilinogen Ur Leukocyte Esterase Urine WBC (Auto) Urine RBC (Auto) Ur Epithelial Cells Hyaline Casts Urine Mucus Blood Type Antibody Screen Active Medications Generic Name Dose Route Start Last Admin Trade Name Freq PRN Reason Stop Dose Admin Atorvastatin Calcium 10 mg 10/15/17 22:00 Lipitor - PO HS USHA Carvedilol 25 mg 10/15/17 10:00 10/15/17 10:59 Coreg - PO 25 mg BID USHA Administration Digoxin 0.125 mg 10/15/17 10:00 10/15/17 10:58 Lanoxin - PO 0.125 mg DAILY USHA Administration Enalapril Maleate 5 mg 10/15/17 10:00 10/15/17 10:59 Vasotec - PO 5 mg DAILY USHA Administration Furosemide 60 mg 10/15/17 14:00 Lasix Injection - IVPUSH BIDLASIX [facility] Cefazolin Sodium/Dextrose 2 gm in 50 mls @ 100 mls/hr 10/15/17 10:00 10:58 Ancef 2 Gm Premixed Ivpb - IVPB 100 mls/hr Q8H-IV USHA Administration Insulin Aspart 1 vial 10/15/17 07:00 10/15/17 12:40 Novolog Vial Sliding Scale - SQ Not Given ACHS [facility] Protocol Rivaroxaban 20 mg 10/15/17 10:00 10/15/17 10:58 Xarelto - PO 20 mg DAILY USHA Administration ASSESSMENT/PLAN: This is a 81 year old male, who is somewhat non complaint according to his family, with a history of chf, DM, atrial fib on xarelto, who presented with a nosebleed which resolved, but found to have significant LE swelling and erythema. Looks to be more of a venous insufficiency with possible dvt, and cellulitis. #chf; acute exacerbation -IV lasix 60 bid, patient taking 80 po bid at home -echo reviewed -On digoxin, coreg, and vasotec at home -cardio consulted #bilateral LE swelling and erythema: -no dvt -Continue cefazolin per ID -vascular consult -ID consult #Epistaxis resolved; cont xarelto #atrial fibrillation -cont AC and digoxin -rate controlled #htn: -cont home meds #DM: -insulin ss; bgm #hld : cont statin DVT: heparin sq physical therapy Visit type - Emergency Visit Emergency Visit: Yes ED Registration Date: 10/15/17 Care time: The patient presented to the Emergency Department on the above date and was hospitalized for further evaluation of their emergent condition. - New Patient This patient is new to me today: Yes Date on this admission: 10/15/17 - Critical Care Critical Care patient: No
[2017-10-15] MEDS: FUROSEMIDE 40 MG/4 ML INJECTABLE VIAL IVPUSH SCH (14:46)
--- NOTE | 2017-10-15 15:21 | PN ---
Teaching Attending Note Name of Resident: Jason Rowe ATTENDING PHYSICIAN STATEMENT I saw and evaluated the patient. I reviewed the resident's note and discussed the case with the resident. I agree with the resident's findings and plan as documented. SUBJECTIVE: no fever or chills. has no abd pain. SOB is better .has LE edema . OBJECTIVE: NAD , AAOx3 CV: irreg irreg . no mRG Lungs: b/l crackles at bases Ext: erythematous, edematous legs with slight extension of erythema and edema to medial L thigh. clear fluids oozing from L leg Abd: soft, NT, ND , obese. erythema and thick skin on lower abd ASSESSMENT AND PLAN: 81 y/o man with h/o HTN, systolic heart failure , A fib, Dm, HLP, CONSTANTINO, and hypertension who presented with epistaxis and was found to have acute CHF exacerbation 1- Epistaxis , resolved 2- Acute systolic CHF exacerbation. Echo with improved EF compared to Echo from 2013. home dose lasix was increased to 80 BID recenly - IV lasix 60 mg BID - tele with a fib, no other events - cont coreg, dig, and vasotec. - card input appreciated 3- A fib: rate controlled - cont coreg , xarelto and xarelto 4- LE erythema , looks more due to edema and fluid retention, but can't r/o celulitis - cont Abx 5- Transaminitis : due to CF. monitor 6- DM : SSI 7- microscopic hematuria: repeat [facility]a dispo : OC
--- NOTE | 2017-10-15 17:29 | PN ---
Progress Note (short form) - Note Progress Note: Vascular surgery Pt seen and examined. Bl lower ext cellulitis. Pt with history of CHF. Cont IV antibiotics. Leg elevation. Palpable PT pulses bl lower ext. Jose Maria Mendoza DO
[2017-10-15] MEDS: ATORVASTATIN CA 10 MG TABLET (FP) PO SCH (21:44)
[2017-10-16] MEDS: CEFAZOLIN 2 GM/D5W 2 GM/50 ML ML IVPB SCH ×3 (01:18→17:10)
[2017-10-16] MEDS: FUROSEMIDE 40 MG/4 ML INJECTABLE VIAL IVPUSH SCH ×2 (05:35→14:48)
[2017-10-16] MEDS: INSULIN SLIDING SCALE (NOVOLOG) 1 VIAL SQ SCH ×4 (06:24→21:36)
[2017-10-16 08:03] LABS: BASO % 0.3 % (0-2.0); EOS % 3.3 % (0-4.5); HEMATOCRIT 29.4 % (35.4-49); HEMOGLOBIN 9.8 GM/dL (11.7-16.9); LYMPH % 21.3 % (8-40); MCH 28.6 pg (25.7-33.7); MCHC 33.4 g/dl (32.0-35.9); MEAN CELL VOLUME 85.6 fl (80-96); MEAN PLT VOLUME 10.2 fl (7.5-11.1); MONO % 11.4 % (3.8-10.2); NEUT % 63.7 % (42.8-82.8); PLATELET COUNT 112 K/MM3 (134-434); RBC 3.44 M/mm3 (4.00-5.60); RDW 17.3 % (11.9-15.9); WHITE BLOOD COUNT 7.1 K/mm3 (4.0-10.0)
[2017-10-16 08:39] LABS: ALBUMIN 3.3 g/dl (3.4-5.0); ANION GAP 5 (8-16); BILIRUBIN,TOTAL 1.1 mg/dL (0.2-1.0); BLOOD UREA NITROGEN 36 mg/dL (7-18); CALCIUM 8.1 mg/dL (8.5-10.1); CHLORIDE 102 mmol/L (98-107); CO2 31 mmol/L (21-32); CREATININE 1.4 mg/dL (0.7-1.3); GLUCOSE,RANDOM 101 mg/dL (74-106); MAGNESIUM 2.3 mg/dL (1.8-2.4); PHOSPHOROUS 4.1 mg/dL (2.5-4.9); SGOT/AST 14 U/L (15-37); SGPT/ALT 12 U/L (12-78); SODIUM 138 mmol/L (136-145); TOT PROT 6.5 g/dl (6.4-8.2)
[2017-10-16 08:50] LABS: ALK PHOS 174 U/L (45-117)
--- NOTE | 2017-10-16 08:53 | PN ---
Progress Note, Physician Chief Complaint: leg swelling History of Present Illness: swelling improving today no sob here or at home no cp, palpitations - Current Medication List Current Medications: Active Medications Atorvastatin Calcium (Lipitor -) 10 mg PO HS [facility] Last Admin: 10/15/17 21:44 Dose: 10 mg Carvedilol (Coreg -) 25 mg PO BID [facility] Last Admin: 10/15/17 21:44 Dose: 25 mg Digoxin (Lanoxin -) 0.125 mg PO DAILY [facility] Last Admin: 10/15/17 10:58 Dose: 0.125 mg Enalapril Maleate (Vasotec -) 5 mg PO DAILY [facility] Last Admin: 10/15/17 10:59 Dose: 5 mg Furosemide (Lasix Injection -) 60 mg IVPUSH BIDLASIX [facility] Last Admin: 10/16/17 05:35 Dose: 60 mg Cefazolin Sodium/Dextrose (Ancef 2 Gm Premixed Ivpb -) 2 gm in 50 mls @ 100 mls /hr IVPB Q8H-IV [facility] Last Admin: 10/16/17 01:18 Dose: 100 mls/hr Insulin Aspart (Novolog Vial Sliding Scale -) 1 vial SQ ACHS [facility] PRN Reason: Protocol Last Admin: 10/16/17 06:24 Dose: Not Given Rivaroxaban (Xarelto -) 20 mg PO DAILY [facility] Last Admin: 10/15/17 10:58 Dose: 20 mg - Objective Vital Signs: Vital Signs Temperature 98.2 F 10/16/17 06:00 Pulse Rate 60 10/16/17 06:00 Respiratory Rate 20 10/16/17 06:00 Blood Pressure 104/60 10/16/17 06:00 O2 Sat by Pulse Oximetry (%) 95 10/15/17 21:00 Constitutional: Yes: No Distress, Calm, Obese Cardiovascular: Yes: Pulse Irregular (decr intensity sounds), S1, S2. No: JVD ( in chair), Gallop, Murmur Respiratory: Yes: Regular, CTA Bilaterally. No: Accessory Muscle Use, Rales, Wheezes Extremities: No: Cold Edema: Yes (2+ pretib) Neurological: Yes: Alert, Oriented Psychiatric: No: Agitated Labs: CBC, BMP 10/16/17 06:00 INR, PTT INR 2.44 (0.82-1.09) H 10/14/17 20:22 Assessment/Plan ecg: afib, rate ok, rbbb CXR: no chf Echo: LVEF mildly reduced, 40-45%. RV mod dilated/mod hypo. L/MARLYS. valves WNL. dilated IVC tele: afib, V-s/V-p, 6 beat VT a/p: 81 m hx syst chf (bi-v failure, NICM), icd, afib, htn, hld, dm, here with le cellulitis. chronic mixed syst/diast chf: -pt with sev decr EF 2012 likely due to med non-compliance with rapid afib as outpt -had primary prev ICD placed, follows closely with gitig as outpt -EF has recovered to near-normal with good HR control, as of recent last office echo -EF here mildly reduced -has been well-compensated without significant CHF for past few years at home -BNP 1600 (vs 2400 when here with acute chf 2012). CXR clear with no congestion -has h/o venous insufficiency/cellulitis in past--DOES NOT NECESSARILY INDICATED ACUTE DECOMP HF IN HIM -on lasix 40 qd-bid at home (depending on edema status) -receiving lasix 60 IV bid here -10/16: labs stable, observe trend. continue same lasix for now, low threshold to cut back lasix here as suspect this is more likely all venous ins'y -cont home gloria, coreg, dig -routine outpt icd checks -no signs acs venous ins'y/cellulitis -followed by wound center at as outpt -tx per ID, hospitalist afib: -h/o prior inappropr ICD shocks for rapid AF--none in long time on home dig, carvedilol regimen -rate control good here, dig level good -continue home AVN blockers -cont xarelto thoracic aorta aneurysm: -has been stable in size (non-surgical) including recent CT monitoring as outpt -BP control as doing, BB on board htn: -well controlled, tight targets (<120/80) in light of moderate thoracic aorta aneurysm -cont home BB, GLORIA hld: -cont statin NO INDICATION FOR TELE MONITORING--D/C'D
--- NOTE | 2017-10-16 09:31 | PN ---
Physical Exam: SUBJECTIVE: Patient seen and examined No acute events overnight. Patient feels better this morning. Denies any complaints. OBJECTIVE: Vital Signs Period Temp Pulse Resp BP Sys/Lambert Pulse Ox Last 24 Hr 97.5 F-99.5 F 60-78 18-20 104-124/48-62 95-95 GENERAL: obese; sitting up in bed; Awake LUNGS: Decreased breath sounds, no crackles HEART: Irregularly irregular, normal S1 and S2 without murmur, rub or gallop. ABDOMEN: obese; nt; nd; bs+ UPPER EXTREMITIES: 2+ pulses, warm, well-perfused. No cyanosis. No clubbing. No peripheral edema. LOWER EXTREMITIES: 2+ pulses, warm, well-perfused. No calf tenderness. bilateral peripheral edema with erythema extending to b/l knee; Oozing from bl extremities-- Erythema/edema appears improved today NEUROLOGICAL: Cranial nerves II-XII intact. decreased sensation of the right foot; muscle strength of LE 3/5; UE muscle groups 5/5 PSYCHIATRIC: Cooperative. Good eye contact. Appropriate mood and affect. SKIN: b/l LE erythema Laboratory Results - last 24 hr 10/15/17 10/15/17 10/15/17 12:31 16:57 21:40 WBC RBC Hgb Hct MCV MCH MCHC RDW Plt Count MPV Neutrophils % Lymphocytes % Monocytes % Eosinophils % Basophils % Sodium Potassium Chloride Carbon Dioxide Anion Gap BUN Creatinine Creat Clearance w eGFR POC Glucometer 111 136 143 Random Glucose Hemoglobin A1c % Calcium Phosphorus Magnesium Total Bilirubin AST ALT Alkaline Phosphatase Total Protein Albumin Digoxin 10/16/17 10/16/17 10/16/17 05:07 06:00 06:00 WBC 7.1 RBC 3.44 L Hgb 9.8 L D Hct 29.4 L MCV 85.6 MCH 28.6 MCHC 33.4 RDW 17.3 H Plt Count 112 L MPV 10.2 Neutrophils % 63.7 Lymphocytes % 21.3 D Monocytes % 11.4 H Eosinophils % 3.3 Basophils % 0.3 Sodium 138 Potassium 4.0 Chloride 102 Carbon Dioxide 31 Anion Gap 5 L BUN 36 H Creatinine 1.4 H Creat Clearance w eGFR 48.89 POC Glucometer 106 Random Glucose 101 Hemoglobin A1c % Calcium 8.1 L Phosphorus 4.1 Magnesium 2.3 D Total Bilirubin 1.1 H AST 14 L D ALT 12 D Alkaline Phosphatase 174 H Total Protein 6.5 Albumin 3.3 L Digoxin 0.6362 L 10/16/17 06:00 WBC RBC Hgb Hct MCV MCH MCHC RDW Plt Count MPV Neutrophils % Lymphocytes % Monocytes % Eosinophils % Basophils % Sodium Potassium Chloride Carbon Dioxide Anion Gap BUN Creatinine Creat Clearance w eGFR POC Glucometer Random Glucose Hemoglobin A1c % 6.6 H D Calcium Phosphorus Magnesium Total Bilirubin AST ALT Alkaline Phosphatase Total Protein Albumin Digoxin Active Medications Generic Name Dose Route Start Last Admin Trade Name Rajesh PRN Reason Stop Dose Admin Atorvastatin Calcium 10 mg 10/15/17 22:00 10/15/17 21:44 Lipitor - PO 10 mg HS USHA Administration Carvedilol 25 mg 10/15/17 10:00 10/15/17 21:44 Coreg - PO 25 mg BID USHA Administration Digoxin 0.125 mg 10/15/17 10:00 10/15/17 10:58 Lanoxin - PO 0.125 mg DAILY USHA Administration Enalapril Maleate 5 mg 10/15/17 10:00 10/15/17 10:59 Vasotec - PO 5 mg DAILY USHA Administration Furosemide 60 mg 10/15/17 14:00 10/16/17 05:35 Lasix Injection - IVPUSH 60 mg BIDLASIX USHA Administration Cefazolin Sodium/Dextrose 2 gm in 50 mls @ 100 mls/hr 10/15/17 10:00 01:18 Ancef 2 Gm Premixed Ivpb - IVPB 100 mls/hr Q8H-IV USHA Administration Insulin Aspart 1 vial 10/15/17 07:00 10/16/17 06:24 Novolog Vial Sliding Scale - SQ Not Given ACHS [facility] Protocol Rivaroxaban 20 mg 10/15/17 10:00 10/15/17 10:58 Xarelto - PO 20 mg DAILY USHA Administration ASSESSMENT/PLAN: This is a 81 year old male, who is somewhat non complaint according to his family, with a history of chf, DM, atrial fib on xarelto, who presented with a nosebleed which resolved, but found to have significant LE swelling and erythema. Looks to be more of a venous insufficiency with possible dvt, and cellulitis. #chf; acute exacerbation -IV lasix 60 bid, patient taking 80 po bid at home -echo reviewed -On digoxin, coreg, and vasotec at home -cardio consulted #bilateral LE swelling and erythema: -no dvt -Continue cefazolin per ID, will discuss regarding stopping abx -vascular consult -ID consult #Epistaxis resolved; cont xarelto #atrial fibrillation -cont AC and digoxin -rate controlled #htn: -cont home meds #DM: -insulin ss; bgm #hld : cont statin DVT: xarelto physical therapy Visit type - Emergency Visit Emergency Visit: Yes ED Registration Date: 10/15/17 Care time: The patient presented to the Emergency Department on the above date and was hospitalized for further evaluation of their emergent condition. - New Patient This patient is new to me today: No - Critical Care Critical Care patient: No
[2017-10-16] MEDS: RIVAROXABAN 20 MG TABLET PO SCH (09:47)
[2017-10-16] MEDS: ENALAPRIL MALEATE 5 MG TABLET (FP) PO SCH (09:47)
[2017-10-16] MEDS: CARVEDILOL 25 MG TABLET (FP) PO SCH ×2 (09:48→21:37)
--- NOTE | 2017-10-16 11:01 | PN ---
Progress Note (short form) - Note Progress Note: no complaints Vital Signs Period Temp Pulse Resp BP Sys/Lambert Pulse Ox Last 24 Hr 97.5 F-99.5 F 60-71 18-20 104-124/48-62 95-95 cor-rrr lungs decreased bs at bases abd soft ext +edema, much less erythema CBC, BMP 10/16/17 06:00 10/16/17 06:00 Microbiology 10/14/17 20:22 Urine - Urine Clean Catch Urine Culture - Final Contaminated: Please Repeat 10/14/17 22:28 Blood - Peripheral Venous Blood Culture - Preliminary NO GROWTH OBTAINED AFTER 24 HOURS, INCUBATION TO CONTINUE FOR 4 DAYS. 10/14/17 22:28 Blood - Peripheral Venous Blood Culture - Preliminary NO GROWTH OBTAINED AFTER 24 HOURS, INCUBATION TO CONTINUE FOR 4 DAYS. a/p cellulitis volume overload/venous stasis CHF continue cefazolin much improved erythema Problem List - Problems (1) Cellulitis Code(s): L03.90 - CELLULITIS, UNSPECIFIED (2) Volume overload Code(s): E87.70 - FLUID OVERLOAD, UNSPECIFIED (3) Venous stasis Code(s): I87.8 - OTHER SPECIFIED DISORDERS OF VEINS (4) CHF (congestive heart failure) Code(s): I50.9 - HEART FAILURE, UNSPECIFIED
[2017-10-16] MEDS: DIGOXIN 0.125 MG TABLET (FP) PO SCH (12:35)
--- NOTE | 2017-10-16 13:39 | PN ---
Teaching Attending Note Name of Resident: Jason Rowe ATTENDING PHYSICIAN STATEMENT I saw and evaluated the patient. I reviewed the resident's note and discussed the case with the resident. I agree with the resident's findings and plan as documented. SUBJECTIVE: no fever or chills. SOB is much better and LE edema is better for him OBJECTIVE: NAD , AAOx3 CV: irreg irreg. no mRG Lungs: b/l crackles at bases Ext: erythematous, edematous legs with slight improvement in edema and erythema Abd: soft, NT, ND , obese. thick skin on lower abd , resolved erythema ASSESSMENT AND PLAN: 81 y/o man with h/o HTN, systolic heart failure , A fib, Dm, HLP, CONSTANTINO, thoracic aortic aneurysm, and hypertension who presented with epistaxis and was found to have acute CHF exacerbation 1- Epistaxis, resolved 2- Acute systolic and diastolic CHF exacerbation. edema and sob improved . responded very well to lasix ( -3L yesterday) - Decrease lasix to 40 BID and monitor response , as Cr started to rise. - will obtain most recent Cr as out pt - cont coreg, dig, and vasotec. if cr cont to increase , will hold vasotec - card input appreciated - Has AICD - tele with no events ( A fibwith variable conduction ) 3- A fib: rate controlled - cont coreg , dig and xarelto 4- Possible cellulites of LE - cont Abx day 2 5- Transaminitis : due to CHF . improved with diuresis 6- DM : SSI 7- Microscopic hematuria: repeat Ua pending 8- Thoracic aortic aneurysm : cont BB . Being monitored as outpt dispo : OC
[2017-10-16 13:54] LABS: URINE APPEARANCE CLEAR; URINE BILIRUBIN NEGATIVE (<2.0 mg/dL); URINE COLOR LTYELLOW; URINE GLUCOSE (UA) NEGATIVE (NEGATIVE); URINE KETONE NEGATIVE (NEGATIVE); URINE LEUK ESTERASE NEGATIVE (NEGATIVE); URINE NITRITE NEGATIVE (NEGATIVE); URINE PROTEIN NEGATIVE (NEGATIVE); URINE UROBILINOGEN NEGATIVE mg/dL (0.2-1.0)
[2017-10-16] MEDS ORDERED: INSULIN (NOVOLOG) ASPART 100 UNITS/ML 10ML VIAL ONE (20:25)
[2017-10-16] MEDS: ATORVASTATIN CA 10 MG TABLET (FP) PO SCH (21:37)
[2017-10-17] MEDS: CEFAZOLIN 2 GM/D5W 2 GM/50 ML ML IVPB SCH ×3 (01:41→17:28)
[2017-10-17] MEDS: INSULIN SLIDING SCALE (NOVOLOG) 1 VIAL SQ SCH ×4 (06:55→21:49)
[2017-10-17] MEDS: FUROSEMIDE 40 MG/4 ML INJECTABLE VIAL IVPUSH SCH (06:56)
[2017-10-17] MEDS ORDERED: INSULIN (NOVOLOG) ASPART 100 UNITS/ML 10ML VIAL ONE ×3 (07:04→20:36)
[2017-10-17 07:16] LABS: BASO % 0.2 % (0-2.0); EOS % 2.9 % (0-4.5); HEMATOCRIT 30.9 % (35.4-49); HEMOGLOBIN 10.4 GM/dL (11.7-16.9); LYMPH % 19.6 % (8-40); MCH 28.8 pg (25.7-33.7); MCHC 33.7 g/dl (32.0-35.9); MEAN CELL VOLUME 85.6 fl (80-96); MEAN PLT VOLUME 10.2 fl (7.5-11.1); MONO % 12.2 % (3.8-10.2); NEUT % 65.1 % (42.8-82.8); PLATELET COUNT 117 K/MM3 (134-434); RBC 3.61 M/mm3 (4.00-5.60); RDW 16.9 % (11.9-15.9); WHITE BLOOD COUNT 8.1 K/mm3 (4.0-10.0)
[2017-10-17 07:33] LABS: CHLORIDE 99 mmol/L (98-107); POTASSIUM 4.4 mmol/L (3.5-5.1); SODIUM 137 mmol/L (136-145)
[2017-10-17 07:38] LABS: ANION GAP 9 (8-16); BLOOD UREA NITROGEN 41 mg/dL (7-18); CALCIUM 8.2 mg/dL (8.5-10.1); CO2 29 mmol/L (21-32); CREATININE 1.5 mg/dL (0.7-1.3); GLUCOSE,RANDOM 116 mg/dL (74-106); MAGNESIUM 2.4 mg/dL (1.8-2.4); PHOSPHOROUS 3.8 mg/dL (2.5-4.9)
--- NOTE | 2017-10-17 09:44 | PN ---
Progress Note, Physician Chief Complaint: leg swelling History of Present Illness: no sob or orthopnea. legs still swollen but better than at home states dr mariann scott'd lasix from 40 bid to 80 bid couple weeks ago due to the increased swelling. hasn't returned to wound center in a while he says. no cp, palpit - Current Medication List Current Medications: Active Medications Atorvastatin Calcium (Lipitor -) 10 mg PO HS [facility] Last Admin: 10/16/17 21:37 Dose: 10 mg Carvedilol (Coreg -) 25 mg PO BID [facility] Last Admin: 10/16/17 21:37 Dose: 25 mg Digoxin (Lanoxin -) 0.125 mg PO DAILY [facility] Last Admin: 10/16/17 12:35 Dose: 0.125 mg Enalapril Maleate (Vasotec -) 5 mg PO DAILY [facility] Last Admin: 10/16/17 09:47 Dose: 5 mg Furosemide (Lasix Injection -) 40 mg IVPUSH BIDLASIX [facility] Last Admin: 10/17/17 06:56 Dose: 40 mg Cefazolin Sodium/Dextrose (Ancef 2 Gm Premixed Ivpb -) 2 gm in 50 mls @ 100 mls /hr IVPB Q8H-IV [facility] Last Admin: 10/17/17 01:41 Dose: 100 mls/hr Insulin Aspart (Novolog Vial Sliding Scale -) 1 vial SQ ACHS [facility] PRN Reason: Protocol Last Admin: 10/17/17 06:55 Dose: Not Given Rivaroxaban (Xarelto -) 20 mg PO DAILY [facility] Last Admin: 10/16/17 09:47 Dose: 20 mg - Objective Vital Signs: Vital Signs Temperature 97.6 F 10/17/17 05:54 Pulse Rate 59 L 10/17/17 05:54 Respiratory Rate 18 10/17/17 05:54 Blood Pressure 111/61 10/17/17 05:54 O2 Sat by Pulse Oximetry (%) 96 10/16/17 21:00 Constitutional: Yes: No Distress, Calm, Obese Cardiovascular: Yes: Pulse Irregular (decr intensity), S1, S2. No: Gallop, Murmur Respiratory: Yes: Regular, CTA Bilaterally. No: Accessory Muscle Use, Rales, Wheezes Extremities: No: Cold Edema: Yes (2+ pretib) Neurological: Yes: Alert, Oriented Psychiatric: No: Agitated Labs: CBC, BMP 10/17/17 06:00 10/17/17 06:00 INR, PTT INR 2.44 (0.82-1.09) H 10/14/17 20:22 Assessment/Plan ecg: afib, rate ok, rbbb CXR: no chf Echo: LVEF mildly reduced, 40-45%. RV mod dilated/mod hypo. L/MARLYS. valves WNL. dilated IVC tele: afib, V-s/V-p, 6 beat VT a/p: 81 m hx syst chf (bi-v failure, NICM), icd, afib, htn, hld, dm, here with le cellulitis. chronic mixed syst/diast chf: -pt with sev decr EF 2012 likely due to med non-compliance with rapid afib as outpt -had primary prev ICD placed, follows closely with gitig as outpt -EF has recovered to near-normal with good HR control, as of recent last office echo -EF here mildly reduced -has been well-compensated without significant CHF for past few years at home -BNP 1600 (vs 2400 when here with acute chf 2012). CXR clear with no congestion -has h/o venous insufficiency/cellulitis in past--DOES NOT NECESSARILY INDICATED ACUTE DECOMP HF IN HIM -on lasix 40 qd-bid at home (depending on edema status) -receiving lasix 60 IV bid here -10/16: labs stable, observe trend. continue same lasix for now, low threshold to cut back lasix here as suspect this is more likely all venous ins'y -10/17: bun rising, creat remains 1.5, up from baseline (1.1-1.3); clinically improved, with no signs chf. will change lasix to 80mg po qd. -should have outpatient labs (BMP) in 1 week or so -cont home gloria, coreg, dig -routine outpt icd checks -no signs acs venous ins'y/cellulitis -followed by wound center at as outpt -decr lasix and change to po, as above -rec wound center f/u after discharge -tx per ID, hospitalist afib: -h/o prior inappropr ICD shocks for rapid AF--none in long time on home dig, carvedilol regimen -rate control good here, dig level good -continue home AVN blockers -cont xarelto thoracic aorta aneurysm: -has been stable in size (non-surgical) including recent CT monitoring as outpt -BP control as doing, BB on board htn: -well controlled, tight targets (<120/80) in light of moderate thoracic aorta aneurysm -cont home BB, GLORIA hld: -cont statin NO INDICATION FOR TELE MONITORING--D/C'D
[2017-10-17] MEDS: DIGOXIN 0.125 MG TABLET (FP) PO SCH (10:26)
[2017-10-17] MEDS: RIVAROXABAN 20 MG TABLET PO SCH (10:28)
[2017-10-17] MEDS: ENALAPRIL MALEATE 5 MG TABLET (FP) PO SCH (10:28)
[2017-10-17] MEDS: CARVEDILOL 25 MG TABLET (FP) PO SCH ×2 (10:28→21:46)
[2017-10-17] MEDS: FUROSEMIDE 40 MG TABLET (FP) PO SCH (10:28)
--- NOTE | 2017-10-17 13:11 | PN ---
Progress Note, Physician History of Present Illness: Awake, alert Seated in bed No c/o leg pain No c/o fever/ chills - Current Medication List Current Medications: Active Medications Atorvastatin Calcium (Lipitor -) 10 mg PO HS [facility] Last Admin: 10/16/17 21:37 Dose: 10 mg Carvedilol (Coreg -) 25 mg PO BID [facility] Last Admin: 10/17/17 10:28 Dose: 25 mg Digoxin (Lanoxin -) 0.125 mg PO DAILY [facility] Last Admin: 10/17/17 10:26 Dose: 0.125 mg Enalapril Maleate (Vasotec -) 5 mg PO DAILY [facility] Last Admin: 10/17/17 10:28 Dose: 5 mg Furosemide (Lasix -) 80 mg PO DAILY [facility] Last Admin: 10/17/17 10:28 Dose: 80 mg Cefazolin Sodium/Dextrose (Ancef 2 Gm Premixed Ivpb -) 2 gm in 50 mls @ 100 mls /hr IVPB Q8H-IV [facility] Last Admin: 10/17/17 10:26 Dose: 100 mls/hr Insulin Aspart (Novolog Vial Sliding Scale -) 1 vial SQ ACHS [facility] PRN Reason: Protocol Last Admin: 10/17/17 11:40 Dose: Not Given Rivaroxaban (Xarelto -) 20 mg PO DAILY [facility] Last Admin: 10/17/17 10:28 Dose: 20 mg - Objective Vital Signs: Vital Signs Temperature 97.6 F 10/17/17 05:54 Pulse Rate 60 10/17/17 10:26 Respiratory Rate 18 10/17/17 05:54 Blood Pressure 111/61 10/17/17 05:54 O2 Sat by Pulse Oximetry (%) 96 10/16/17 21:00 Constitutional: Yes: No Distress, Obese Eyes: Yes: Conjunctiva Clear Cardiovascular: Yes: Regular Rate and Rhythm, S1, S2 Respiratory: Yes: CTA Bilaterally Gastrointestinal: Yes: Normal Bowel Sounds, Soft, Abdomen, Obese. No: Tenderness Extremities: Yes: Other (+ lower ext edema bilaterally resolving LE erythema) Labs: CBC, BMP 10/17/17 06:00 10/17/17 06:00 INR, PTT INR 2.44 (0.82-1.09) H 10/14/17 20:22 Assessment/Plan Bilateral LE cellulitis Venous stasis dermatitis CHF Continue cefazolin
--- NOTE | 2017-10-17 13:53 | PN ---
Progress Note (short form) - Note Progress Note: Subjective: no fever or chills. NO SOB. LE edema is better Objective: Vital Signs: Last Vital Signs Temp Pulse Resp BP Pulse Ox 97.6 F 60 18 111/61 96 10/17/17 05:54 10/17/17 10:26 10/17/17 05:54 10/17/17 05:54 10/16/17 21:00 Laboratory Results - last 24 hr 10/16/17 10/16/17 10/16/17 11:00 16:46 21:35 WBC RBC Hgb Hct MCV MCH MCHC RDW Plt Count MPV Neutrophils % Lymphocytes % Monocytes % Eosinophils % Basophils % Sodium Potassium Chloride Carbon Dioxide Anion Gap BUN Creatinine POC Glucometer 112 121 Random Glucose Calcium Phosphorus Magnesium Urine Color Ltyellow Urine Appearance Clear Urine pH 6.0 Ur Specific [place] 1.009 Urine Protein Negative Urine Glucose (UA) Negative Urine Ketones Negative Urine Blood 2+ H Urine Nitrite Negative Urine Bilirubin Negative Urine Urobilinogen Negative Ur Leukocyte Esterase Negative Urine WBC (Auto) 1 Urine RBC (Auto) 28 10/17/17 10/17/17 10/17/17 06:00 06:00 06:54 WBC 8.1 RBC 3.61 L Hgb 10.4 L Hct 30.9 L MCV 85.6 MCH 28.8 MCHC 33.7 RDW 16.9 H Plt Count 117 L MPV 10.2 Neutrophils % 65.1 Lymphocytes % 19.6 Monocytes % 12.2 H Eosinophils % 2.9 Basophils % 0.2 Sodium 137 Potassium 4.4 Chloride 99 Carbon Dioxide 29 Anion Gap 9 BUN 41 H Creatinine 1.5 H POC Glucometer 123 Random Glucose 116 H Calcium 8.2 L Phosphorus 3.8 Magnesium 2.4 Urine Color Urine Appearance Urine pH Ur Specific [place] Urine Protein Urine Glucose (UA) Urine Ketones Urine Blood Urine Nitrite Urine Bilirubin Urine Urobilinogen Ur Leukocyte Esterase Urine WBC (Auto) Urine RBC (Auto) 10/17/17 11:37 WBC RBC Hgb Hct MCV MCH MCHC RDW Plt Count MPV Neutrophils % Lymphocytes % Monocytes % Eosinophils % Basophils % Sodium Potassium Chloride Carbon Dioxide Anion Gap BUN Creatinine POC Glucometer 143 Random Glucose Calcium Phosphorus Magnesium Urine Color Urine Appearance Urine pH Ur Specific [place] Urine Protein Urine Glucose (UA) Urine Ketones Urine Blood Urine Nitrite Urine Bilirubin Urine Urobilinogen Ur Leukocyte Esterase Urine WBC (Auto) Urine RBC (Auto) Physical Exam: NAD, AAOx3 CV: irreg irreg. no mRG Lungs: CTAB. Ext: slight improvement in edema and erythema , purulent dc form small wound son R leg ASSESSMENT AND PLAN: 81 y/o man with h/o HTN, systolic heart failure , A fib, Dm, HLP, CONSTANTINO, thoracic aortic aneurysm, and hypertension who presented with epistaxis and was found to have acute CHF exacerbation. 1- Epistaxis, resolved 2- Acute systolic and diastolic CHF exacerbation. - switch to po lasix 80 daily due to rising cr . d/w dr. Mcdaniel - cont coreg, dig, and hold vasotec due to rising cr . - Has AICD - sBP this afternoon 83, bt no sx. monitor 3- A fib: rate controlled - cont coreg , dig and xarelto 4- Possible cellulites of LE - cont Abx day 3 5- Transaminitis: due to CHF. improved with diuresis. repeat 6- DM: SSI 7- Microscopic hematuria: f/u with uro as out pt 8- Thoracic aortic aneurysm: cont BB. Being monitored as outpt Dispo: HLOC monitor BP till Am , might switch to po Abx tomorrow then dc home Visit type - Emergency Visit Emergency Visit: Yes ED Registration Date: 10/15/17 Care time: The patient presented to the Emergency Department on the above date and was hospitalized for further evaluation of their emergent condition. - New Patient This patient is new to me today: No - Critical Care Critical Care patient: No
[2017-10-17] MEDS: ATORVASTATIN CA 10 MG TABLET (FP) PO SCH (21:46)
[2017-10-18] MEDS: CEFAZOLIN 2 GM/D5W 2 GM/50 ML ML IVPB SCH ×3 (02:23→17:15)
[2017-10-18] MEDS: INSULIN SLIDING SCALE (NOVOLOG) 1 VIAL SQ SCH ×4 (06:54→21:50)
[2017-10-18 07:29] LABS: ALBUMIN 3.8 g/dl (3.4-5.0); ANION GAP 7 (8-16); BLOOD UREA NITROGEN 37 mg/dL (7-18); CALCIUM 8.7 mg/dL (8.5-10.1); CHLORIDE 99 mmol/L (98-107); CO2 31 mmol/L (21-32); GLUCOSE,RANDOM 124 mg/dL (74-106); POTASSIUM 4.1 mmol/L (3.5-5.1); SGOT/AST 20 U/L (15-37); SODIUM 137 mmol/L (136-145)
[2017-10-18 07:34] LABS: ALK PHOS 194 U/L (45-117); BILIRUBIN,TOTAL 1.2 mg/dL (0.2-1.0); CREATININE 1.3 mg/dL (0.7-1.3); SGPT/ALT 11 U/L (12-78); TOT PROT 7.1 g/dl (6.4-8.2)
--- NOTE | 2017-10-18 09:09 | PN ---
Progress Note (short form) - Note Progress Note: no complaints feels better oob etaing breakfast Vital Signs Period Temp Pulse Resp BP Sys/Lambert Pulse Ox Last 24 Hr 97.5 F-98.4 F 59-68 18-20 86-134/46-75 96 cor-rrr lungs decreased bs at bases abd soft,nt ext decreased erythema of both legs CBC, BMP 10/17/17 06:00 10/18/17 06:00 Current Medications Atorvastatin Calcium (Lipitor -) 10 mg PO HS [facility] Last Admin: 10/17/17 21:46 Dose: 10 mg Carvedilol (Coreg -) 25 mg PO BID [facility] Last Admin: 10/17/17 21:46 Dose: 25 mg Digoxin (Lanoxin -) 0.125 mg PO DAILY [facility] Last Admin: 10/17/17 10:26 Dose: 0.125 mg Furosemide (Lasix -) 80 mg PO DAILY [facility] Last Admin: 10/17/17 10:28 Dose: 80 mg Cefazolin Sodium/Dextrose (Ancef 2 Gm Premixed Ivpb -) 2 gm in 50 mls @ 100 mls /hr IVPB Q8H-IV [facility] Last Admin: 10/18/17 02:23 Dose: 100 mls/hr Insulin Aspart (Novolog Vial Sliding Scale -) 1 vial SQ ACHS [facility] PRN Reason: Protocol Last Admin: 10/18/17 06:54 Dose: Not Given Rivaroxaban (Xarelto -) 20 mg PO DAILY [facility] Last Admin: 10/17/17 10:28 Dose: 20 mg a/p cellulitis volume overload/venous stasis CHF day #4 antibiotics can switch to po keflex for 5 days keflex 500 po tid d/w hospitalist Problem List - Problems (1) Cellulitis Code(s): L03.90 - CELLULITIS, UNSPECIFIED (2) Volume overload Code(s): E87.70 - FLUID OVERLOAD, UNSPECIFIED (3) Venous stasis Code(s): I87.8 - OTHER SPECIFIED DISORDERS OF VEINS (4) CHF (congestive heart failure) Code(s): I50.9 - HEART FAILURE, UNSPECIFIED
[2017-10-18] MEDS: DIGOXIN 0.125 MG TABLET (FP) PO SCH (10:16)
[2017-10-18] MEDS: CARVEDILOL 25 MG TABLET (FP) PO SCH ×2 (10:16→21:49)
[2017-10-18] MEDS: FUROSEMIDE 40 MG TABLET (FP) PO SCH ×2 (10:16→11:52)
[2017-10-18] MEDS: RIVAROXABAN 20 MG TABLET PO SCH (10:16)
[2017-10-18] MEDS ORDERED: INSULIN (NOVOLOG) ASPART 100 UNITS/ML 10ML VIAL ONE (11:48)
--- NOTE | 2017-10-18 11:50 | PN ---
Progress Note, Physician Chief Complaint: leg swelling History of Present Illness: epistaxis recurred this am--resolved with tissue packing leg swelling stable no sob, orthopnea no cp, palpit - Current Medication List Current Medications: Active Medications Atorvastatin Calcium (Lipitor -) 10 mg PO HS [facility] Last Admin: 10/17/17 21:46 Dose: 10 mg Carvedilol (Coreg -) 25 mg PO BID [facility] Last Admin: 10/18/17 10:16 Dose: 25 mg Digoxin (Lanoxin -) 0.125 mg PO DAILY [facility] Last Admin: 10/18/17 10:16 Dose: 0.125 mg Furosemide (Lasix -) 80 mg PO DAILY [facility] Last Admin: 10/18/17 10:16 Dose: Not Given Cefazolin Sodium/Dextrose (Ancef 2 Gm Premixed Ivpb -) 2 gm in 50 mls @ 100 mls /hr IVPB Q8H-IV [facility] Last Admin: 10/18/17 10:16 Dose: 100 mls/hr Insulin Aspart (Novolog Vial Sliding Scale -) 1 vial SQ ACHS [facility] PRN Reason: Protocol Last Admin: 10/18/17 06:54 Dose: Not Given Rivaroxaban (Xarelto -) 20 mg PO DAILY [facility] Last Admin: 10/18/17 10:16 Dose: 20 mg - Objective Vital Signs: Vital Signs Temperature 98.7 F 10/18/17 10:08 Pulse Rate 66 10/18/17 10:16 Respiratory Rate 20 10/18/17 04:00 Blood Pressure 107/59 10/18/17 10:08 O2 Sat by Pulse Oximetry (%) 96 10/17/17 21:00 Constitutional: Yes: No Distress, Calm, Obese Cardiovascular: Yes: Pulse Irregular, S1, S2. No: Gallop, Murmur Respiratory: Yes: Regular, CTA Bilaterally. No: Accessory Muscle Use, Rales, Wheezes Extremities: No: Cold Edema: Yes (1-2+ pretib, less eryth) Neurological: Yes: Alert, Oriented Psychiatric: No: Agitated Labs: CBC, BMP 10/17/17 06:00 10/18/17 06:00 INR, PTT INR 2.44 (0.82-1.09) H 10/14/17 20:22 Assessment/Plan ecg: afib, rate ok, rbbb CXR: no chf Echo: LVEF mildly reduced, 40-45%. RV mod dilated/mod hypo. L/MARLYS. valves WNL. dilated IVC tele: afib, V-s/V-p, 6 beat VT a/p: 81 m hx syst chf (bi-v failure, NICM), icd, afib, htn, hld, dm, here with le cellulitis. chronic mixed syst/diast chf: -pt with sev decr EF 2012 likely due to med non-compliance with rapid afib as outpt -had primary prev ICD placed, follows closely with gitig as outpt -EF has recovered to near-normal with good HR control, as of recent last office echo -EF here mildly reduced -has been well-compensated without significant CHF for past few years at home -BNP 1600 (vs 2400 when here with acute chf 2012). CXR clear with no congestion -has h/o venous insufficiency/cellulitis in past--DOES NOT NECESSARILY INDICATED ACUTE DECOMP HF IN HIM -on lasix 40 qd-bid at home (depending on edema status) -receiving lasix 60 IV bid here -bun/creat aron slightly, no ongoing signs chf. changed to lasix 80 po qd -labs stable, appears compensated chf alba. same lasix -cont home gloria, coreg, dig -routine outpt icd checks -no signs acs venous ins'y/cellulitis -followed by wound center at as outpt -decr lasix and change to po, as above -rec wound center f/u after discharge -tx per ID, hospitalist afib: -h/o prior inappropr ICD shocks for rapid AF--none in long time on home dig, carvedilol regimen -rate control good here, dig level good -continue home AVN blockers -cont xarelto -if recurrent epistaxis should see ENT thoracic aorta aneurysm: -has been stable in size (non-surgical) including recent CT monitoring as outpt -BP control as doing, BB on board htn: -well controlled, tight targets (<120/80) in light of moderate thoracic aorta aneurysm -cont home BB, GLORIA hld: -cont statin NO INDICATION FOR TELE MONITORING--D/C'D
--- NOTE | 2017-10-18 14:00 | DS ---
Physical Exam: SUBJECTIVE: Patient seen and examined OBJECTIVE: Vital Signs Period Temp Pulse Resp BP Sys/Lambert Pulse Ox Last 24 Hr 97.5 F-98.7 F 59-68 18-20 105-134/55-75 96 PHYSICAL EXAM GENERAL: The patient is awake, alert, and fully oriented, in no acute distress. HEAD: Normal with no signs of trauma. EYES: PERRL, extraocular movements intact, sclera anicteric, conjunctiva clear. ENT: Ears normal, nares patent, oropharynx clear without exudates, moist mucous membranes. NECK: Trachea midline, full range of motion, supple. LUNGS: Breath sounds equal, clear to auscultation bilaterally, no wheezes, no crackles, no accessory muscle use. HEART: Regular rate and rhythm, S1, S2 without murmur, rub or gallop. ABDOMEN: Soft, nontender, nondistended, normoactive bowel sounds, no guarding, no rebound, no hepatosplenomegaly, no masses. EXTREMITIES: 2+ pulses, warm, well-perfused, no edema. NEUROLOGICAL: Cranial nerves II through XII grossly intact. Normal speech, gait not observed. PSYCH: Normal mood, normal affect. SKIN: Warm, dry, normal turgor, no rashes or lesions noted. LABS Laboratory Results - last 24 hr 10/17/17 10/17/17 10/18/17 16:19 21:45 06:00 Sodium 137 Potassium 4.1 Chloride 99 Carbon Dioxide 31 Anion Gap 7 L BUN 37 H Creatinine 1.3 Creat Clearance w eGFR 53.25 POC Glucometer 159 156 Random Glucose 124 H Calcium 8.7 Total Bilirubin 1.2 H AST 20 D ALT 11 L Alkaline Phosphatase 194 H Total Protein 7.1 Albumin 3.8 10/18/17 10/18/17 06:48 11:46 Sodium Potassium Chloride Carbon Dioxide Anion Gap BUN Creatinine Creat Clearance w eGFR POC Glucometer 126 168 Random Glucose Calcium Total Bilirubin AST ALT Alkaline Phosphatase Total Protein Albumin HOSPITAL COURSE: Date of Admission:10/15/17 Date of Discharge: 10/18/17 Discharge Summary Reason For Visit: RESPIRATORY ACIDOSIS CELLULITIS Current Active Problems CHF (congestive heart failure) (Acute) Cellulitis (Acute) Microscopic hematuria (Acute) Volume overload (Acute) Atrial fibrillation (Chronic) Diabetes mellitus (Chronic) Thoracic aortic aneurysm (Chronic) Venous stasis (Chronic) Condition: Stable - Instructions Diet, Activity, Other Instructions: You were in the hospital for an exacerbation of your heart failure and a skin infection of your lower legs. Please follow up with your primary care provider within 1 week. You will need to monitor your kidney function closely with your doctors. 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 Mcdaniel has been provided for you. Please call to make an appointment. Please follow up with a urologist within 1 week( Dr. Rodriguez) . A referral has been provided for you. You will need to discuss the results of your urinalysis, which showed blood in your urine. Take 80 mg of Lasix 1x per day at home instead of 80 twice a day Take Keflex 500 mg three times per day for 5 more days. Discontinue Pioglitazone, We recommend not continuing this medication for your diabetes. Continue your other home medications as prescribed. if you have chest pain, shortness of breath, or any new/worsening symptoms please come back to the hospital immediately. Referrals: Alonzo Rodriguez MD [Staff Physician] - 1 Week Ludwig Mcdaniel MD [Staff Physician] - 1 Week Stanislav Lindsay MD [Primary Care Provider] - 1 Week Disposition: HOME - Home Medications Comprehensive Discharge Medication List: Ambulatory Orders Atorvastatin Ca [Lipitor] 10 mg PO HS 10/15/17 Carvedilol [Coreg -] 25 mg PO BID 10/15/17 Digoxin [Lanoxin -] 0.125 mg PO DAILY 10/15/17 Enalapril Maleate [Vasotec -] 2.5 mg PO DAILY 10/15/17 Glyburide 5 mg PO BID 10/15/17 Metformin HCl [Glucophage] 1,000 mg PO BID 10/15/17 Rivaroxaban [Xarelto -] 20 mg PO DAILY 10/15/17 Sitagliptin Phosphate [Januvia] 100 mg PO DAILY 10/15/17 Cephalexin [Keflex] 500 mg PO TID #15 capsule 10/18/17 Furosemide [Lasix -] 80 mg PO DAILY #60 tablet 10/18/17
--- NOTE | 2017-10-18 14:06 | PN ---
Teaching Attending Note Name of Resident: Jason Rowe ATTENDING PHYSICIAN STATEMENT I saw and evaluated the patient. I reviewed the resident's note and discussed the case with the resident. I agree with the resident's findings and plan as documented. SUBJECTIVE: no SOB , no fever or chill, no CP OBJECTIVE: NAD, AAOx3 CV: irreg irreg. no mRG Lungs: CTAB. Ext: slight improvement in edema and erythema , purulent dc form small wound son R leg ASSESSMENT AND PLAN: 81 y/o man with h/o HTN, systolic heart failure , A fib, Dm, HLP, CONSTANTINO, thoracic aortic aneurysm, and hypertension who presented with epistaxis and was found to have acute CHF exacerbation. 1- Acute systolic and diastolic CHF exacerbation. - cont lasix 80 daily at home - cont coreg, dig, and resume his home enalapril - Has AICD 3- A fib: rate controlled - cont coreg , dig and xarelto 4- Possible cellulites of LE - day 4 of Abx , cont withkeflex x 5 more days 5- Transaminitis: due to CHF.f/u as out pt 6- DM:resume home glyburide, januvia,. dc metformine and pioglitazone due to heart failure. increase glyburide to 10 with breakfast and 5 with dinner 7- Microscopic hematuria: f/u with uro as out pt 8- Thoracic aortic aneurysm: cont BB. Being monitored as outpt dispo : Dc home with VNS
--- NOTE | 2017-10-18 14:19 | DS ---
Physical Exam: SUBJECTIVE: Patient seen and examined OBJECTIVE: Vital Signs Period Temp Pulse Resp BP Sys/Lambert Pulse Ox Last 24 Hr 97.5 F-98.7 F 59-68 18-20 105-134/55-75 96 PHYSICAL EXAM GENERAL: The patient is awake, alert, and fully oriented, in no acute distress. HEAD: Normal with no signs of trauma. EYES: PERRL, extraocular movements intact, sclera anicteric, conjunctiva clear. ENT: Ears normal, nares patent, oropharynx clear without exudates, moist mucous membranes. NECK: Trachea midline, full range of motion, supple. LUNGS: Breath sounds equal, clear to auscultation bilaterally, no wheezes, no crackles, no accessory muscle use. HEART: Regular rate and rhythm, S1, S2 without murmur, rub or gallop. ABDOMEN: Soft, nontender, nondistended, normoactive bowel sounds, no guarding, no rebound, no hepatosplenomegaly, no masses. EXTREMITIES: 2+ pulses, warm, well-perfused, no edema. NEUROLOGICAL: Cranial nerves II through XII grossly intact. Normal speech, gait not observed. PSYCH: Normal mood, normal affect. SKIN: Warm, dry, normal turgor, no rashes or lesions noted. LABS Laboratory Results - last 24 hr 10/17/17 10/17/17 10/18/17 16:19 21:45 06:00 Sodium 137 Potassium 4.1 Chloride 99 Carbon Dioxide 31 Anion Gap 7 L BUN 37 H Creatinine 1.3 Creat Clearance w eGFR 53.25 POC Glucometer 159 156 Random Glucose 124 H Calcium 8.7 Total Bilirubin 1.2 H AST 20 D ALT 11 L Alkaline Phosphatase 194 H Total Protein 7.1 Albumin 3.8 10/18/17 10/18/17 06:48 11:46 Sodium Potassium Chloride Carbon Dioxide Anion Gap BUN Creatinine Creat Clearance w eGFR POC Glucometer 126 168 Random Glucose Calcium Total Bilirubin AST ALT Alkaline Phosphatase Total Protein Albumin HOSPITAL COURSE: Date of Admission:10/15/17 Date of Discharge: 10/18/17 Discharge Summary Reason For Visit: RESPIRATORY ACIDOSIS CELLULITIS Current Active Problems CHF (congestive heart failure) (Acute) Cellulitis (Acute) Microscopic hematuria (Acute) Volume overload (Acute) Atrial fibrillation (Chronic) Diabetes mellitus (Chronic) Thoracic aortic aneurysm (Chronic) Venous stasis (Chronic) Condition: Stable - Instructions Diet, Activity, Other Instructions: You were in the hospital for an exacerbation of your heart failure and a skin infection of your lower legs. Please follow up with your primary care provider within 1 week. You will need to monitor your kidney function closely with your doctors. 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 Mcdaniel has been provided for you. Please call to make an appointment. Please follow up with a urologist within 1 week( Dr. Rodriguez) . A referral has been provided for you. You will need to discuss the results of your urinalysis, which showed blood in your urine. Take 80 mg of Lasix 1x per day at home instead of 80 twice a day Take Keflex 500 mg three times per day for 5 more days. Discontinue Pioglitazone, We recommend not continuing this medication for your diabetes. Also, stop taking metformin. Increase your glyburide to 10 mg in the morning with breakfast and 5mg in the evening with dinner. Continue your other home medications as prescribed. if you have chest pain, shortness of breath, or any new/worsening symptoms please come back to the hospital immediately. Referrals: Alonzo Rodriguez MD [Staff Physician] - 1 Week Ludwig Mcdaniel MD [Staff Physician] - 1 Week Stanislav Lindsay MD [Primary Care Provider] - 1 Week Disposition: HOME - Home Medications Comprehensive Discharge Medication List: Ambulatory Orders Atorvastatin Ca [Lipitor] 10 mg PO HS 10/15/17 Carvedilol [Coreg -] 25 mg PO BID 10/15/17 Digoxin [Lanoxin -] 0.125 mg PO DAILY 10/15/17 Enalapril Maleate [Vasotec -] 2.5 mg PO DAILY 10/15/17 Rivaroxaban [Xarelto -] 20 mg PO DAILY 10/15/17 Sitagliptin Phosphate [Januvia] 100 mg PO DAILY 10/15/17 Cephalexin [Keflex] 500 mg PO TID #15 capsule 10/18/17 Furosemide [Lasix -] 80 mg PO DAILY #60 tablet 10/18/17 Glyburide 5 mg PO HS #30 tablet 10/18/17 Glyburide 10 mg PO DAILY #60 tablet 10/18/17
--- NOTE | 2017-10-18 16:11 | PN ---
Physical Exam: SUBJECTIVE: Patient seen and examined No acute events overnight. Feels well this morning. Around 3pm began to have nosebleed. OBJECTIVE: Vital Signs Period Temp Pulse Resp BP Sys/Lambert Pulse Ox Last 24 Hr 97.4 F-98.7 F 52-68 18-20 105-134/55-75 96 GENERAL: obese; sitting up in bed; Awake LUNGS: Decreased breath sounds, no crackles HEART: Irregularly irregular, normal S1 and S2 without murmur, rub or gallop. ABDOMEN: obese; nt; nd; bs+ UPPER EXTREMITIES: 2+ pulses, warm, well-perfused. No cyanosis. No clubbing. No peripheral edema. LOWER EXTREMITIES: 2+ pulses, warm, well-perfused. No calf tenderness. bilateral peripheral edema with erythema (improving) extending to b/l knee; Oozing from left extremity NEUROLOGICAL: Cranial nerves II-XII intact. decreased sensation of the right foot; muscle strength of LE 3/5; UE muscle groups 5/5 PSYCHIATRIC: Cooperative. Good eye contact. Appropriate mood and affect. SKIN: b/l LE erythema Laboratory Results - last 24 hr 10/17/17 10/17/17 10/18/17 16:19 21:45 06:00 Sodium 137 Potassium 4.1 Chloride 99 Carbon Dioxide 31 Anion Gap 7 L BUN 37 H Creatinine 1.3 Creat Clearance w eGFR 53.25 POC Glucometer 159 156 Random Glucose 124 H Calcium 8.7 Total Bilirubin 1.2 H AST 20 D ALT 11 L Alkaline Phosphatase 194 H Total Protein 7.1 Albumin 3.8 10/18/17 10/18/17 06:48 11:46 Sodium Potassium Chloride Carbon Dioxide Anion Gap BUN Creatinine Creat Clearance w eGFR POC Glucometer 126 168 Random Glucose Calcium Total Bilirubin AST ALT Alkaline Phosphatase Total Protein Albumin Active Medications Generic Name Dose Route Start Last Admin Trade Name Freq PRN Reason Stop Dose Admin Atorvastatin Calcium 10 mg 10/15/17 22:00 10/17/17 21:46 Lipitor - PO 10 mg HS USHA Administration Carvedilol 25 mg 10/15/17 10:00 10/18/17 10:16 Coreg - PO 25 mg BID USHA Administration Digoxin 0.125 mg 10/15/17 10:00 10/18/17 10:16 Lanoxin - PO 0.125 mg DAILY USHA Administration Furosemide 80 mg 10/17/17 10:00 10/18/17 11:52 Lasix - PO 80 mg DAILY USHA Administration Cefazolin Sodium/Dextrose 2 gm in 50 mls @ 100 mls/hr 10/15/17 10:00 10:16 Ancef 2 Gm Premixed Ivpb - IVPB 100 mls/hr Q8H-IV USHA Administration Insulin Aspart 1 vial 10/15/17 07:00 10/18/17 11:50 Novolog Vial Sliding Scale - SQ 2 units ACHS USHA Administration Protocol Rivaroxaban 20 mg 10/15/17 10:00 10/18/17 10:16 Xarelto - PO 20 mg DAILY USHA Administration ASSESSMENT/PLAN: This is a 81 year old male, who is somewhat non complaint according to his family, with a history of chf, DM, atrial fib on xarelto, who presented with a nosebleed which resolved, but found to have significant LE swelling and erythema. Looks to be more of a venous insufficiency with possible dvt, and cellulitis. #chf; acute exacerbation -Continue lasix 80 mg po daily -echo reviewed -On digoxin, coreg, and vasotec at home -cardio consulted #bilateral LE swelling and erythema: -no dvt -Will switch patient to keflex 500 mg po tid on d/c x 5 days. -vascular consult -ID consult #Epistaxis -restarted today -on xarelto -anterior rhinorocket placed -ENT consult #atrial fibrillation -cont AC and digoxin -rate controlled #htn: -cont home meds #DM: -insulin ss; bgm #hld : cont statin DVT: xarelto physical therapy Visit type - Emergency Visit Emergency Visit: Yes ED Registration Date: 10/15/17 Care time: The patient presented to the Emergency Department on the above date and was hospitalized for further evaluation of their emergent condition. - New Patient This patient is new to me today: No - Critical Care Critical Care patient: No
--- NOTE | 2017-10-18 18:15 | CON.ENT ---
Consult Consult Specialty:: ENT Reason for Consultation:: nosebleed - History of Present Illness Chief Complaint: nosebleed History of Present Illness: 81M admitted for epistaxis and heart failure through ER. Epistaxis resolved and was not packed, but resumed this afternoon and was packed, delaying his discharge. He has no prior history of nosebleeds till last week. He admits to picking at his nose. He is on Xarelto. INR ~2.4. - History Source History Provided By: Patient Limitations to Obtaining History: No Limitations - Past Medical History Cardio/Vascular: Yes: AFIB, CAD, CHF Pulmonary: Yes: Sleep Apnea Renal/: Yes: Hematuria, Renal Calculi Endocrine: Yes: Diabetes Insipidus - Past Surgical History Past Surgical History: Yes: AICD - Alcohol/Substance Use Hx Alcohol Use: No - Smoking History Smoking history: Never smoked Have you smoked in the past 12 months: No Aproximately how many cigarettes per day: 0 Home Medications - Allergies Allergies/Adverse Reactions: Allergies Allergy/AdvReac Type Severity Reaction Status Date / Time No Known Drug Allergies Allergy Verified 10/14/17 22:35 - Home Medications Home Medications: Ambulatory Orders Atorvastatin Ca [Lipitor] 10 mg PO HS 10/15/17 Carvedilol [Coreg -] 25 mg PO BID 10/15/17 Digoxin [Lanoxin -] 0.125 mg PO DAILY 10/15/17 Enalapril Maleate [Vasotec -] 2.5 mg PO DAILY 10/15/17 Rivaroxaban [Xarelto -] 20 mg PO DAILY 10/15/17 Sitagliptin Phosphate [Januvia] 100 mg PO DAILY 10/15/17 Cephalexin [Keflex] 500 mg PO TID #15 capsule 10/18/17 Furosemide [Lasix -] 80 mg PO DAILY #60 tablet 10/18/17 Glyburide 5 mg PO HS #30 tablet 10/18/17 Glyburide 10 mg PO DAILY #60 tablet 10/18/17 Miscellaneous Drug Not In Syst [Outpatient Lab Test] 1 each ASDIR #1 misc Review of Systems - Review of Systems Constitutional: reports: No Symptoms HENT: reports: Epistaxis Physical Exam-ENT Vital Signs: Vital Signs Temperature 97.4 F L 10/18/17 14:35 Pulse Rate 54 L 10/18/17 16:00 Respiratory Rate 20 10/18/17 16:00 Blood Pressure 130/53 10/18/17 16:00 O2 Sat by Pulse Oximetry (%) 96 10/17/17 21:00 Constitutional: Yes: Well Nourished, No Distress, Calm, Other (Sitting on edge of bed, finsihing dinner. NAD. pleasant. No active bleeding) Head: Yes: WNL Face: Yes: WNL Eyes: Yes: WNL Nose: Yes: Other (left rhinorocket, ~1cm protruding. Balloon partly inflated. No bleeding. Right side with dry blood anteriorly) Oral/Pharynx: Yes: WNL, Other (fair dentition. Uvula echymottic without edema. no masses/lesions. no blood in post o/p) Outer Ear: Yes: WNL Ear Canal: Yes: Cerumen (and hair) Neck: Yes: Supple Respiratory: Yes: WNL Neurological: Yes: Cran Nerves II-XII Intact (CN 3-7,11,12 intact, symmetrical) Problem List - Problems (1) Epistaxis Assessment/Plan: Limited epistaxis, resolved now with rhinorocket placed by sanjay KNOWLES earlier today Xarelto is a significant risk factor, with INR elevated. Must stop picking nose Please refer the patient to make appointment with me on for removal of the packing across the street at [address], [place]. Should be on gram positive antibiotic coverage while packing in place. Code(s): R04.0 - EPISTAXIS
[2017-10-18] MEDS: ATORVASTATIN CA 10 MG TABLET (FP) PO SCH (21:49)
[2017-10-19] MEDS: CEFAZOLIN 2 GM/D5W 2 GM/50 ML ML IVPB SCH ×2 (01:29→11:40)
[2017-10-19] MEDS: INSULIN SLIDING SCALE (NOVOLOG) 1 VIAL SQ SCH ×4 (06:15→21:27)
[2017-10-19 07:34] LABS: BASO % 0.2 % (0-2.0); EOS % 1.5 % (0-4.5); HEMATOCRIT 29.8 % (35.4-49); HEMOGLOBIN 9.9 GM/dL (11.7-16.9); LYMPH % 10.9 % (8-40); MCH 28.7 pg (25.7-33.7); MCHC 33.4 g/dl (32.0-35.9); MEAN PLT VOLUME 10.4 fl (7.5-11.1); MONO % 8.9 % (3.8-10.2); NEUT % 78.5 % (42.8-82.8); PLATELET COUNT 111 K/MM3 (134-434); RBC 3.47 M/mm3 (4.00-5.60); RDW 17.1 % (11.9-15.9)
[2017-10-19 08:02] LABS: CHLORIDE 102 mmol/L (98-107); POTASSIUM 4.2 mmol/L (3.5-5.1); SODIUM 138 mmol/L (136-145)
[2017-10-19 08:09] LABS: ALBUMIN 3.5 g/dl (3.4-5.0); ALK PHOS 209 U/L (45-117); ANION GAP 7 (8-16); BILIRUBIN,TOTAL 1.3 mg/dL (0.2-1.0); BLOOD UREA NITROGEN 36 mg/dL (7-18); CALCIUM 8.4 mg/dL (8.5-10.1); CO2 29 mmol/L (21-32); CREATININE 1.2 mg/dL (0.7-1.3); GLUCOSE,RANDOM 132 mg/dL (74-106); SGOT/AST 20 U/L (15-37); SGPT/ALT 10 U/L (12-78); TOT PROT 6.9 g/dl (6.4-8.2)
[2017-10-19] MEDS: CARVEDILOL 25 MG TABLET (FP) PO SCH (09:34)
[2017-10-19] MEDS ORDERED: ENALAPRIL MALEATE 2.5 MG TABLET (FP) PO SCH (10:00)
[2017-10-19] MEDS ORDERED: FAMOTIDINE IV 20 MG/12 ML VIAL IVPUSH SCH (10:00)
[2017-10-19] MEDS ORDERED: methylPREDNISolone NA SUCC 40 MG/1 ML VIAL IVPUSH ONE (10:30)
[2017-10-19] MEDS: FUROSEMIDE 40 MG TABLET (FP) PO SCH (11:37)
[2017-10-19] MEDS: DIGOXIN 0.125 MG TABLET (FP) PO SCH (11:38)
[2017-10-19] MEDS: diphenhydrAMINE HCL 25 MG CAPSULE (FP) PO SCH ×3 (11:38→21:28)
[2017-10-19] MEDS: RIVAROXABAN 20 MG TABLET PO SCH (11:38)
[2017-10-19] MEDS: FAMOTIDINE 20 MG/50 ML IVPB 20 MG/50 ML MG IVPB SCH ×2 (11:39→21:28)
[2017-10-19] MEDS ORDERED: INSULIN (NOVOLOG) ASPART 100 UNITS/ML 10ML VIAL ONE ×4 (11:42→20:50)
[2017-10-19] MEDS ORDERED: CARVEDILOL 12.5 MG TABLET (FP) PO SCH (13:22)
--- NOTE | 2017-10-19 13:33 | PN ---
Progress Note (short form) - Note Progress Note: Chief Complaint: leg swelling History of Present Illness: epistaxis yesterday, seen by ENT s/p nasal packing. HR's in 50's --> coreg dose decreased to 12.5 mg bid today. enalapril also held/stopped today. concern for possible angioedema. leg swelling stable no sob, orthopnea no cp, palpit Current Medications Atorvastatin Calcium (Lipitor -) 10 mg PO HS [facility] Last Admin: 10/18/17 21:49 Dose: 10 mg Carvedilol (Coreg -) 12.5 mg PO BID [facility] Digoxin (Lanoxin -) 0.125 mg PO DAILY [facility] Last Admin: 10/19/17 11:38 Dose: 0.125 mg Diphenhydramine HCl (Benadryl -) 25 mg PO TID [facility] Last Admin: 10/19/17 11:38 Dose: 25 mg Furosemide (Lasix -) 80 mg PO DAILY [facility] Last Admin: 10/19/17 11:37 Dose: 80 mg Cefazolin Sodium/Dextrose (Ancef 2 Gm Premixed Ivpb -) 2 gm in 50 mls @ 100 mls /hr IVPB Q8H-IV [facility] Last Admin: 10/19/17 11:40 Dose: 100 mls/hr Famotidine/Sodium Chloride (Pepcid 20 Mg Premixed Ivpb -) 20 mg in 50 mls @ 100 mls/hr IVPB BID [facility] Last Admin: 10/19/17 11:39 Dose: 100 mls/hr Insulin Aspart (Novolog Vial Sliding Scale -) 1 vial SQ ACHS [facility] PRN Reason: Protocol Last Admin: 10/19/17 11:43 Dose: 6 units Rivaroxaban (Xarelto -) 20 mg PO DAILY [facility] Last Admin: 10/19/17 11:38 Dose: 20 mg - Objective Vital Signs: Vital Signs - 24 hr 10/18/17 10/18/17 10/18/17 14:35 14:40 15:30 Temperature 97.4 F L Pulse Rate 52 L 63 68 Respiratory 20 20 20 Rate Blood Pressure 114/64 106/74 119/81 10/18/17 10/18/17 10/18/17 16:00 18:00 22:00 Temperature 97.5 F L 97.9 F Pulse Rate 54 L 68 62 Respiratory 20 20 20 Rate Blood Pressure 130/53 113/46 120/62 10/19/17 10/19/17 10/19/17 02:00 06:00 08:41 Temperature 97.4 F L 97.7 F 98.0 F Pulse Rate 60 54 L 54 L Respiratory 18 18 18 Rate Blood Pressure 116/55 146/75 146/63 10/19/17 10/19/17 11:38 12:11 Temperature 97.4 F L Pulse Rate 64 64 Respiratory 18 Rate Blood Pressure 124/69 Intake & Output 10/17/17 10/18/17 10/19/17 10/20/17 07:59 07:59 07:59 07:59 Intake Total 510 1380 550 Output Total 600 1100 600 1 Balance -90 280 -50 -1 Weight 195 lb 4 oz 195 lb 6.4 oz 310 lb Constitutional: Yes: No Distress, Calm, Obese Cardiovascular: Yes: Pulse Irregular, S1, S2. No: Gallop, Murmur Respiratory: Yes: Regular, CTA Bilaterally. No: Accessory Muscle Use, Rales, Wheezes Extremities: No: Cold Edema: Yes (1-2+ pretib, less eryth) Neurological: Yes: Alert, Oriented Psychiatric: No: Agitated Labs: CBC, BMP 10/19/17 06:20 10/19/17 06:20 Assessment/Plan ecg: afib, rate ok, rbbb CXR: no chf Echo: LVEF mildly reduced, 40-45%. RV mod dilated/mod hypo. L/MARLYS. valves WNL. dilated IVC prior tele: afib, V-s/V-p, 6 beat VT a/p: 81 m hx syst chf (bi-v failure, NICM), icd, afib, htn, hld, severe anthony, dm , here with le cellulitis. chronic mixed syst/diast chf: -pt with sev decr EF 2012 likely due to med non-compliance with rapid afib as outpt -had primary prev ICD placed, follows closely with [facility] as outpt -EF has recovered to near-normal with good HR control, as of recent last office echo --> EF here now mildly reduced -has been well-compensated without significant CHF for past few years at home -BNP 1600 (vs 2400 when here with acute chf 2012). CXR clear with no congestion -has h/o venous insufficiency/cellulitis in past--DOES NOT NECESSARILY INDICATED ACUTE DECOMP HF IN HIM -on lasix 40 qd-bid at home (depending on edema status) -s/p lasix 40 mg IV daily x 2 days then 60 IV bid on 10/15, 60 mg IV x 1 on and 40 mg IV x 1 on 10/17. -bun/creat aron slightly, no ongoing signs chf. changed to lasix 80 po qd 10/17 -cont home gloria, coreg, dig -routine outpt icd checks -no signs acs - 10/19: coreg dose decreased today for HR in the 50's. However, patient with hx of VT/NSVT, and EF currently below baseline. Would increase coreg back up to 25 mg bid. Patient's LRL on ICD set at 40 bpm. If bradycardia becomes a problem, can increase LRL. Enalapril stopped b/c of angioedema. Has been on long-standing enalapril as outpatient. In light of recent drop in EF, would consider discussion with ENT to confirm angioedema related to enalapril. If cannot take enalapril, will need to substitute. 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 - has had subsequent episodes of VT detected on interrogations, none recently. Con't routine outpatient monitoring. coreg as above. venous ins'y/cellulitis -followed by wound center at as outpt -decr lasix and changed iv to po, as above. weights erratic, accuracy unclear. Would benefit from consistent standing weights. per patient LE edema stable. -rec wound center f/u after discharge -tx per ID, hospitalist afib: -h/o prior inappropr ICD shocks for rapid AF--none in long time on home dig, carvedilol regimen -rate control good here, dig level good on admit -continue home AVN blockers -cont xarelto, epistaxis in setting of nose-picking (also mild thrombocytopenia) . ENT now following. monitor for recurrence. 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 monitor for improvement. htn: -well controlled, tight targets (<120/80) in light of moderate thoracic aorta aneurysm -cont home BB, GLORIA - 4/24. slightly above goal in setting of holding enalapril and adjusting coreg dose. increasing coreg dose back to 25 bid, monitor for improvement. hld: -cont statin
--- NOTE | 2017-10-19 14:21 | PN ---
Physical Exam: SUBJECTIVE: Patient seen and examined No acute events overnight. Patient feels like he has something stuck in his throat. No more episodes of bleeding after rhinorocket placed. OBJECTIVE: Vital Signs Period Temp Pulse Resp BP Sys/Lambert Pulse Ox Last 24 Hr 97.4 F-98.0 F 52-68 18-20 106-146/46-81 GENERAL: obese; sitting up in bed; Awake HEENT: +enlarged uvula with erythema, no stridor LUNGS: Decreased breath sounds, no crackles HEART: Irregularly irregular, normal S1 and S2 without murmur, rub or gallop. ABDOMEN: obese; nt; nd; bs+ UPPER EXTREMITIES: 2+ pulses, warm, well-perfused. No cyanosis. No clubbing. No peripheral edema. LOWER EXTREMITIES: 2+ pulses, warm, well-perfused. No calf tenderness. bilateral peripheral edema with erythema (improving) extending to b/l knee; Oozing from left extremity NEUROLOGICAL: Cranial nerves II-XII intact. decreased sensation of the right foot; muscle strength of LE 3/5; UE muscle groups 5/5 PSYCHIATRIC: Cooperative. Good eye contact. Appropriate mood and affect. SKIN: b/l LE erythema Laboratory Results - last 24 hr 10/18/17 10/18/17 10/19/17 17:13 20:36 05:52 WBC RBC Hgb Hct MCV MCH MCHC RDW Plt Count MPV Neutrophils % Lymphocytes % Monocytes % Eosinophils % Basophils % Sodium Potassium Chloride Carbon Dioxide Anion Gap BUN Creatinine Creat Clearance w eGFR POC Glucometer 149 196 143 Random Glucose Calcium Total Bilirubin AST ALT Alkaline Phosphatase Total Protein Albumin 10/19/17 10/19/17 10/19/17 06:20 06:20 11:17 WBC 8.0 RBC 3.47 L Hgb 9.9 L Hct 29.8 L MCV 86.0 MCH 28.7 MCHC 33.4 RDW 17.1 H Plt Count 111 L MPV 10.4 Neutrophils % 78.5 D Lymphocytes % 10.9 D Monocytes % 8.9 Eosinophils % 1.5 Basophils % 0.2 Sodium 138 Potassium 4.2 Chloride 102 Carbon Dioxide 29 Anion Gap 7 L BUN 36 H Creatinine 1.2 Creat Clearance w eGFR 58.40 POC Glucometer 255 Random Glucose 132 H Calcium 8.4 L Total Bilirubin 1.3 H AST 20 ALT 10 L Alkaline Phosphatase 209 H Total Protein 6.9 Albumin 3.5 Active Medications Generic Name Dose Route Start Last Admin Trade Name Tomq PRN Reason Stop Dose Admin Atorvastatin Calcium 10 mg 10/15/17 22:00 10/18/17 21:49 Lipitor - PO 10 mg HS USHA Administration Carvedilol 12.5 mg 10/19/17 13:22 Coreg - PO BID USHA Digoxin 0.125 mg 10/15/17 10:00 10/19/17 11:38 Lanoxin - PO 0.125 mg DAILY USHA Administration Diphenhydramine HCl 25 mg 10/19/17 09:45 10/19/17 13:48 Benadryl - PO 25 mg TID USHA Administration Furosemide 80 mg 10/17/17 10:00 10/19/17 11:37 Lasix - PO 80 mg DAILY USHA Administration Cefazolin Sodium/Dextrose 2 gm in 50 mls @ 100 mls/hr 10/15/17 10:00 11:40 Ancef 2 Gm Premixed Ivpb - IVPB 100 mls/hr Q8H-IV USHA Administration Famotidine/Sodium Chloride 20 mg in 50 mls @ 100 mls/hr 10/19/17 10:00 11:39 Pepcid 20 Mg Premixed Ivpb - IVPB 100 mls/hr BID USHA Administration Insulin Aspart 1 vial 10/15/17 07:00 10/19/17 11:43 Novolog Vial Sliding Scale - SQ 6 units ACHS USHA Administration Protocol Rivaroxaban 20 mg 10/15/17 10:00 10/19/17 11:38 Xarelto - PO 20 mg DAILY USHA Administration ASSESSMENT/PLAN: This is a 81 year old male, who is somewhat non complaint according to his family, with a history of chf, DM, atrial fib on xarelto, who presented with a nosebleed which resolved, but found to have significant LE swelling and erythema. Looks to be more of a venous insufficiency with possible dvt, and cellulitis. #Angioedema, likely 2/2 to enalapril -Discontinue the Enalapril -IV solumederol x 1 dose -IV pepcid 20 mg bid -PO benadryl given 25 mg tid -Continue to monitor respiratory status #chf; acute exacerbation -Continue lasix 80 mg po daily -echo reviewed -On digoxin, decreased coreg to 12.5 given bradycardia, stop vasotec -cardio consulted #bilateral LE swelling and erythema: -no dvt -Will switch patient to keflex 500 mg po tid on d/c x 4 days. -vascular consult -ID consult #Epistaxis -continue xarelto -anterior rhinorocket removed today -will f/u with ent outpt -ENT consult #atrial fibrillation -cont AC and digoxin -rate controlled #htn: -cont home meds #DM: -insulin ss; bgm #hld : cont statin DVT: xarelto physical therapy Visit type - Emergency Visit Emergency Visit: Yes ED Registration Date: 10/15/17 Care time: The patient presented to the Emergency Department on the above date and was hospitalized for further evaluation of their emergent condition. - New Patient This patient is new to me today: No - Critical Care Critical Care patient: No
--- NOTE | 2017-10-19 15:27 | PN ---
Teaching Attending Note Name of Resident: Jason Rowe ATTENDING PHYSICIAN STATEMENT I saw and evaluated the patient. I reviewed the resident's note and discussed the case with the resident. I agree with the resident's findings and plan as documented. SUBJECTIVE: No fever or chills. feels something is stuck in his throat.no soar throat. no SOB or wheezing . no more bleed after placement of rhinorocket OBJECTIVE: NAD, AAOx3 . oropharynx with edematous enlarged uvula . unremarkable rest of pharynx. CV: irreg irreg. no mRG Lungs: CTAB. Ext: slight improvement in edema and erythema of LE ASSESSMENT AND PLAN: 81 y/o man with h/o HTN, systolic heart failure , A fib, Dm, HLP, CONST[place], thoracic aortic aneurysm, and hypertension who presented with epistaxis and was found to have acute CHF exacerbation. 1- Acute angioedema with edema in uvula. would blame Enalapril. - stop enalapril - give one dose of Iv solumedrol and give a course of prednisone x 7 days - start IV H2 brayden . - start benadryl - no signs of resp compromise 2- Acute systolic and diastolic CHF exacerbation. mprovd - cont po lasix 80 daily - decreae coreg to 12.5 due to bradycardia persistently in 50s - cont dig - dc enalapril . monitor BP - Has AICD 3- A fib: rate controlled - cont coreg( as above ) , dig and xarelto 4- Possible cellulites of LE - day 5 of Abx , cont keflex for 4 more days 5- Epistaxis. recurred. s/p Rhinorocket. - removal of rhinorocket on - cont xarelto due to high [id number] score 6- Transaminitis: due to CHF.f/u as out pt 7- DM: cont SSI here . at dc resume home glyburide and januvia, and dc metformine and pioglitazone due to heart failure. increase glyburide to 10 with breakfast and 5 with dinner 8- Microscopic hematuria: f/u with uro as out pt 9- Thoracic aortic aneurysm: cont BB. Being monitored as outpt dispo : HLOC due to angioedema and epistaxis
[2017-10-19] MEDS: ATORVASTATIN CA 10 MG TABLET (FP) PO SCH (21:28)
[2017-10-19] MEDS: CEPHALEXIN MONOHYDRATE 500 MG CAPSULE (UD) PO SCH (21:28)
[2017-10-20] MEDS: diphenhydrAMINE HCL 25 MG CAPSULE (FP) PO SCH ×2 (05:51→13:14)
[2017-10-20] MEDS: CEPHALEXIN MONOHYDRATE 500 MG CAPSULE (UD) PO SCH ×2 (05:51→13:14)
[2017-10-20] MEDS: INSULIN SLIDING SCALE (NOVOLOG) 1 VIAL SQ SCH ×3 (06:05→17:20)
[2017-10-20 07:41] LABS: BASO % 0.2 % (0-2.0); EOS % 0.3 % (0-4.5); HEMOGLOBIN 9.6 GM/dL (11.7-16.9); MCH 28.4 pg (25.7-33.7); MCHC 33.1 g/dl (32.0-35.9); MEAN CELL VOLUME 85.8 fl (80-96); MEAN PLT VOLUME 10.1 fl (7.5-11.1); MONO % 10.7 % (3.8-10.2); NEUT % 77.8 % (42.8-82.8); PLATELET COUNT 113 K/MM3 (134-434); RBC 3.38 M/mm3 (4.00-5.60); RDW 17.1 % (11.9-15.9); WHITE BLOOD COUNT 8.3 K/mm3 (4.0-10.0)
[2017-10-20 08:11] LABS: CHLORIDE 103 mmol/L (98-107); POTASSIUM 3.9 mmol/L (3.5-5.1); SODIUM 138 mmol/L (136-145)
[2017-10-20 08:21] LABS: ANION GAP 7 (8-16); BLOOD UREA NITROGEN 27 mg/dL (7-18); CALCIUM 8.6 mg/dL (8.5-10.1); CO2 28 mmol/L (21-32); GLUCOSE,RANDOM 150 mg/dL (74-106)
--- NOTE | 2017-10-20 09:09 | PN ---
Physical Exam: SUBJECTIVE: Patient seen and examined No acute events overnight. Patient's throat feels better. Denies any more episodes of bleeding. OBJECTIVE: Vital Signs Period Temp Pulse Resp BP Sys/Lambert Pulse Ox Last 24 Hr 97.4 F-98.7 F 60-67 16-20 113-140/57-69 98 GENERAL: obese; sitting up in bed; Awake HEENT: +enlarged uvula with erythema, no stridor, improving from yesterday LUNGS: Decreased breath sounds, no crackles HEART: Irregularly irregular, normal S1 and S2 without murmur, rub or gallop. ABDOMEN: obese; nt; nd; bs+ UPPER EXTREMITIES: 2+ pulses, warm, well-perfused. No cyanosis. No clubbing. No peripheral edema. LOWER EXTREMITIES: 2+ pulses, warm, well-perfused. No calf tenderness. bilateral peripheral edema with erythema (improving) extending to b/l knee; Oozing from left extremity NEUROLOGICAL: Cranial nerves II-XII intact. decreased sensation of the right foot; muscle strength of LE 3/5; UE muscle groups 5/5 PSYCHIATRIC: Cooperative. Good eye contact. Appropriate mood and affect. SKIN: b/l LE erythema Laboratory Results - last 24 hr 10/19/17 10/19/17 10/19/17 11:17 16:29 21:26 WBC RBC Hgb Hct MCV MCH MCHC RDW Plt Count MPV Neutrophils % Lymphocytes % Monocytes % Eosinophils % Basophils % Sodium Potassium Chloride Carbon Dioxide Anion Gap BUN Creatinine POC Glucometer 255 183 342 Random Glucose Calcium 10/20/17 10/20/17 10/20/17 06:02 06:20 06:20 WBC 8.3 RBC 3.38 L Hgb 9.6 L Hct 29.0 L MCV 85.8 MCH 28.4 MCHC 33.1 RDW 17.1 H Plt Count 113 L MPV 10.1 Neutrophils % 77.8 Lymphocytes % 11.0 Monocytes % 10.7 H Eosinophils % 0.3 Basophils % 0.2 Sodium 138 Potassium 3.9 Chloride 103 Carbon Dioxide 28 Anion Gap 7 L BUN 27 H D Creatinine 1.0 POC Glucometer 155 Random Glucose 150 H Calcium 8.6 Active Medications Generic Name Dose Route Start Last Admin Trade Name Freq PRN Reason Stop Dose Admin Atorvastatin Calcium 10 mg 10/15/17 22:00 10/19/17 21:28 Lipitor - PO 10 mg HS USHA Administration Carvedilol 25 mg 10/20/17 10:00 Coreg - PO BID USHA Cephalexin HCl 500 mg 10/19/17 22:00 10/20/17 05:51 Keflex - PO 500 mg TID USHA Administration Digoxin 0.125 mg 10/15/17 10:00 10/19/17 11:38 Lanoxin - PO 0.125 mg DAILY USHA Administration Diphenhydramine HCl 25 mg 10/19/17 09:45 10/20/17 05:51 Benadryl - PO 25 mg TID USHA Administration Furosemide 80 mg 10/17/17 10:00 10/19/17 11:37 Lasix - PO 80 mg DAILY USHA Administration Famotidine/Sodium Chloride 20 mg in 50 mls @ 100 mls/hr 10/19/17 10:00 21:28 Pepcid 20 Mg Premixed Ivpb - IVPB 100 mls/hr BID USHA Administration Insulin Aspart 1 vial 10/15/17 07:00 10/20/17 06:05 Novolog Vial Sliding Scale - SQ 2 units ACHS USHA Administration Protocol Rivaroxaban 20 mg 10/15/17 10:00 10/19/17 11:38 Xarelto - PO 20 mg DAILY USHA Administration ASSESSMENT/PLAN: This is a 81 year old male, who is somewhat non complaint according to his family, with a history of chf, DM, atrial fib on xarelto, who presented with a nosebleed which resolved, but found to have significant LE swelling and erythema. Looks to be more of a venous insufficiency with possible dvt, and cellulitis. #Angioedema, likely 2/2 to enalapril -Discontinue the Enalapril -IV solumederol x 1 dose, Will give 7 day taper of prednisone -IV Pepcid 20 mg bid -PO benadryl given 25 mg tid -Continue to monitor respiratory status #chf; acute exacerbation -Continue lasix 80 mg po daily -echo reviewed -On digoxin, decreased coreg to 12.5 given bradycardia, stop vasotec -cardio consulted #bilateral LE swelling and erythema: -no dvt -Continue Keflex 500 mg po tid x 3 more days. -vascular consult -ID consult #Epistaxis -continue xarelto -anterior rhinorocket removed -will f/u with ent outpt -ENT consult #atrial fibrillation -cont AC and digoxin -rate controlled #htn: -cont home meds #DM: -insulin ss; bgm #hld : cont statin DVT: xarelto physical therapy Visit type - Emergency Visit Emergency Visit: Yes ED Registration Date: 10/15/17 Care time: The patient presented to the Emergency Department on the above date and was hospitalized for further evaluation of their emergent condition. - New Patient This patient is new to me today: No - Critical Care Critical Care patient: No
[2017-10-20] MEDS ORDERED: CARVEDILOL 25 MG TABLET (FP) PO SCH (10:00)
[2017-10-20] MEDS ORDERED: predniSONE 20 MG TABLET (UD) PO SCH (10:00)
[2017-10-20] MEDS: DIGOXIN 0.125 MG TABLET (FP) PO SCH (10:17)
[2017-10-20] MEDS: FUROSEMIDE 40 MG TABLET (FP) PO SCH (10:17)
[2017-10-20] MEDS: RIVAROXABAN 20 MG TABLET PO SCH (10:17)
[2017-10-20] MEDS: FAMOTIDINE 20 MG/50 ML IVPB 20 MG/50 ML MG IVPB SCH (10:18)
--- NOTE | 2017-10-20 11:34 | PN ---
Progress Note (short form) - Note Progress Note: Chief Complaint: leg swelling History of Present Illness: no sob, orthopnea no cp, palpit Current Medications Generic Name Dose Route Start Last Admin Trade Name Rajesh PRN Reason Stop Dose Admin Atorvastatin Calcium 10 mg 10/15/17 22:00 10/19/17 21:28 Lipitor - PO 10 mg HS USHA Administration Carvedilol 25 mg 10/20/17 10:00 Coreg - PO BID USHA Cephalexin HCl 500 mg 10/19/17 22:00 10/20/17 05:51 Keflex - PO 500 mg TID USHA Administration Digoxin 0.125 mg 10/15/17 10:00 10/20/17 10:17 Lanoxin - PO 0.125 mg DAILY USHA Administration Diphenhydramine HCl 25 mg 10/19/17 09:45 10/20/17 05:51 Benadryl - PO 25 mg TID USHA Administration Furosemide 80 mg 10/17/17 10:00 10/20/17 10:17 Lasix - PO 80 mg DAILY USHA Administration Famotidine/Sodium Chloride 20 mg in 50 mls @ 100 mls/hr 10/19/17 10:00 10:18 Pepcid 20 Mg Premixed Ivpb - IVPB 100 mls/hr BID USHA Administration Insulin Aspart 1 vial 10/15/17 07:00 10/20/17 06:05 Novolog Vial Sliding Scale - SQ 2 units ACHS USHA Administration Protocol Prednisone 40 mg 10/20/17 12:00 Deltasone - PO 10/20/17 12:01 ONCE ONE Rivaroxaban 20 mg 10/15/17 10:00 10/20/17 10:17 Xarelto - PO 20 mg DAILY USHA Administration - Objective Vital Signs: Vital Signs Period Temp Pulse Resp BP Sys/Lambert Pulse Ox Last 24 Hr 97.4 F-98.7 F 60-78 16-20 113-140/57-69 98 Constitutional: Yes: No Distress, Calm, Obese Cardiovascular: Yes: Pulse Irregular, S1, S2. No: Gallop, Murmur Respiratory: Yes: Regular, CTA Bilaterally. No: Accessory Muscle Use, Rales, Wheezes Extremities: No: Cold Edema: Yes (1 pretib, less eryth) Neurological: Yes: Alert, Oriented Psychiatric: No: Agitated Labs: CBC, BMP 10/20/17 06:20 10/20/17 06:20 ecg: afib, rate ok, rbbb CXR: no chf Echo: LVEF mildly reduced, 40-45%. RV mod dilated/mod hypo. L/MARLYS. valves WNL. dilated IVC a/p: 81 m hx syst chf (bi-v failure, NICM), icd, afib, htn, hld, severe anthony, dm , here with le cellulitis. chronic mixed syst/diast chf: -pt with sev decr EF 2012 likely due to med non-compliance with rapid afib as outpt -had primary prev ICD placed, follows closely with [facility] as outpt -EF has recovered to near-normal with good HR control, as of recent last office echo --> EF here now mildly reduced -has been well-compensated without significant CHF for past few years at home -BNP 1600 (vs 2400 when here with acute chf 2012). CXR clear with no congestion -has h/o venous insufficiency/cellulitis in past--DOES NOT NECESSARILY INDICATED ACUTE DECOMP HF IN HIM -on lasix 40 qd-bid at home (depending on edema status) -s/p lasix 40 mg IV daily x 2 days then 60 IV bid on 10/15, 60 mg IV x 1 on and 40 mg IV x 1 on 10/17. -bun/creat aron slightly, no ongoing signs chf. changed to lasix 80 po qd 10/17 -cont home dread, coreg, dig -routine outpt icd checks -no signs acs - 10/19: coreg dose decreased today for HR in the 50's. However, patient with hx of VT/NSVT, and EF currently below baseline. Would increase coreg back up to 25 mg bid. Patient's LRL on ICD set at 40 bpm. If bradycardia becomes a problem, can increase LRL. Enalapril stopped b/c of angioedema. Has been on long-standing enalapril as outpatient. In light of recent drop in EF, would consider discussion with ENT to confirm angioedema related to enalapril. If cannot take enalapril, will need to substitute. 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 - has had subsequent episodes of VT detected on interrogations, none recently. Con't routine outpatient monitoring. coreg as above. venous ins'y/cellulitis -followed by wound center at as outpt -decr lasix and changed iv to po, as above. weights erratic, accuracy unclear. Would benefit from consistent standing weights. per patient LE edema stable. -rec wound center f/u after discharge -tx per ID, hospitalist afib: -h/o prior inappropr ICD shocks for rapid AF--none in long time on home dig, carvedilol regimen -rate control good here, dig level good on admit -continue home AVN blockers -cont xarelto, epistaxis in setting of nose-picking (also mild thrombocytopenia) . ENT now following. monitor for recurrence. 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 monitor for improvement. htn: -cont current meds hld: -cont statin cardiac alba remains stable
[2017-10-20] MEDS ORDERED: predniSONE 20 MG TABLET (UD) PO ONE (12:00)
--- NOTE | 2017-10-20 12:54 | PN ---
Teaching Attending Note Name of Resident: Jason Rowe ATTENDING PHYSICIAN STATEMENT I saw and evaluated the patient. I reviewed the resident's note and discussed the case with the resident. I agree with the resident's findings and plan as documented. SUBJECTIVE: OBJECTIVE: Vital Signs Period Temp Pulse Resp BP Sys/Lambert Pulse Ox Last 24 Hr 97.4 F-98.7 F 60-78 16-20 113-140/57-68 98 Laboratory Results - last 24 hr 10/19/17 10/19/17 10/20/17 16:29 21:26 06:02 WBC RBC Hgb Hct MCV MCH MCHC RDW Plt Count MPV Neutrophils % Lymphocytes % Monocytes % Eosinophils % Basophils % Sodium Potassium Chloride Carbon Dioxide Anion Gap BUN Creatinine POC Glucometer 183 342 155 Random Glucose Calcium 10/20/17 10/20/17 10/20/17 06:20 06:20 12:06 WBC 8.3 RBC 3.38 L Hgb 9.6 L Hct 29.0 L MCV 85.8 MCH 28.4 MCHC 33.1 RDW 17.1 H Plt Count 113 L MPV 10.1 Neutrophils % 77.8 Lymphocytes % 11.0 Monocytes % 10.7 H Eosinophils % 0.3 Basophils % 0.2 Sodium 138 Potassium 3.9 Chloride 103 Carbon Dioxide 28 Anion Gap 7 L BUN 27 H D Creatinine 1.0 POC Glucometer 208 Random Glucose 150 H Calcium 8.6 Current Medications Generic Name Dose Route Start Last Admin Trade Name Freq PRN Reason Stop Dose Admin Atorvastatin Calcium 10 mg 10/15/17 22:00 10/19/17 21:28 Lipitor - PO 10 mg HS USHA Administration Carvedilol 25 mg 10/20/17 10:00 Coreg - PO BID USHA Cephalexin HCl 500 mg 10/19/17 22:00 10/20/17 05:51 Keflex - PO 500 mg TID USHA Administration Digoxin 0.125 mg 10/15/17 10:00 10/20/17 10:17 Lanoxin - PO 0.125 mg DAILY USHA Administration Diphenhydramine HCl 25 mg 10/19/17 09:45 10/20/17 05:51 Benadryl - PO 25 mg TID USHA Administration Furosemide 80 mg 10/17/17 10:00 10/20/17 10:17 Lasix - PO 80 mg DAILY USHA Administration Famotidine/Sodium Chloride 20 mg in 50 mls @ 100 mls/hr 10/19/17 10:00 10:18 Pepcid 20 Mg Premixed Ivpb - IVPB 100 mls/hr BID USHA Administration Insulin Aspart 1 vial 10/15/17 07:00 10/20/17 12:17 Novolog Vial Sliding Scale - SQ 4 units ACHS USHA Administration Protocol Rivaroxaban 20 mg 10/15/17 10:00 10/20/17 10:17 Xarelto - PO 20 mg DAILY USHA Administration ASSESSMENT AND PLAN: 81 y/o man with h/o HTN, systolic heart failure , A fib, Dm, HLP, CONSTANTINO, thoracic aortic aneurysm, and hypertension who presented with epistaxis and was found to have acute CHF exacerbation. 1- Acute angioedema with edema in uvula. would blame Enalapril. - stop enalapril - give one dose of Iv solumedrol and give a course of prednisone x 7 days - start IV H2 brayden . - start benadryl - no signs of resp compromise 2- Acute systolic and diastolic CHF exacerbation. mprovd - cont po lasix 80 daily - decreae coreg to 12.5 due to bradycardia persistently in 50s - cont dig - dc enalapril . monitor BP - Has AICD 3- A fib: rate controlled - cont coreg( as above ) , dig and xarelto 4- Possible cellulites of LE - day 5 of Abx , cont keflex for 4 more days 5- Epistaxis. recurred. s/p Rhinorocket. - removal of rhinorocket on - cont xarelto due to high [id number] score 6- Transaminitis: due to CHF.f/u as out pt 7- DM: cont SSI here . at dc resume home glyburide and januvia, and dc metformine and pioglitazone due to heart failure. increase glyburide to 10 with breakfast and 5 with dinner 8- Microscopic hematuria: f/u with uro as out pt 9- Thoracic aortic aneurysm: cont BB. Being monitored as outpt dispo : HLOC due to angioedema and epistaxis
--- NOTE | 2017-10-20 14:25 | DS ---
Physical Exam: Selected Entries 10/20/17 10/20/17 10/20/17 09:00 10:00 10:17 Temperature 98.1 F Pulse Rate 78 Respiratory 18 Rate Blood Pressure 119/60 O2 Sat by Pulse 98 Oximetry (%) Oxygen Delivery Room Air Method Laboratory Tests 10/14/17 10/14/17 10/14/17 20:22 20:22 20:22 WBC Hgb Hct Plt Count INR 2.44 H VBG pH POC VBG pCO2 POC VBG pO2 Mixed VBG HCO3 Sodium Potassium Chloride Carbon Dioxide Anion Gap BUN Creatinine Random Glucose Hemoglobin A1c % Troponin I < 0.02 D B-Natriuretic Peptide Urine Blood 3+ H Urine RBC (Auto) 180 Digoxin 10/14/17 10/14/17 10/16/17 20:22 20:22 06:00 WBC Hgb Hct Plt Count INR VBG pH 7.34 POC VBG pCO2 56.4 H POC VBG pO2 24.6 L Mixed VBG HCO3 29.3 H Sodium Potassium Chloride Carbon Dioxide Anion Gap BUN Creatinine Random Glucose Hemoglobin A1c % Troponin I B-Natriuretic Peptide 1679.42 H Urine Blood Urine RBC (Auto) Digoxin 0.6362 L 10/16/17 10/16/17 10/20/17 06:00 11:00 06:20 WBC 8.3 Hgb 9.6 L Hct 29.0 L Plt Count 113 L INR VBG pH POC VBG pCO2 POC VBG pO2 Mixed VBG HCO3 Sodium Potassium Chloride Carbon Dioxide Anion Gap BUN Creatinine Random Glucose Hemoglobin A1c % 6.6 H D Troponin I B-Natriuretic Peptide Urine Blood 2+ H Urine RBC (Auto) 28 Digoxin 10/20/17 06:20 WBC Hgb Hct Plt Count INR VBG pH POC VBG pCO2 POC VBG pO2 Mixed VBG HCO3 Sodium 138 Potassium 3.9 Chloride 103 Carbon Dioxide 28 Anion Gap 7 L BUN 27 H D Creatinine 1.0 Random Glucose 150 H Hemoglobin A1c % Troponin I B-Natriuretic Peptide Urine Blood Urine RBC (Auto) Digoxin Microbiology 10/14/17 22:28 Blood - Peripheral Venous Blood Culture - Final NO GROWTH AFTER 5 DAYS INCUBATION 10/14/17 22:28 Blood - Peripheral Venous Blood Culture - Final NO GROWTH AFTER 5 DAYS INCUBATION 10/14/17 20:22 Urine - Urine Clean Catch Urine Culture - Final Contaminated: Please Repeat cxr- right base fluid with atelectasis/infiltrate ekg- Atrial fibrillation vascular study- no dvt Echo- ef 40-45%, lv fxn mildly reduced, rv moderately dilated, aicd in place, dilated IVC, rv fxn moderately reduced. HOSPITAL COURSE: 81 year old obese, non compliant male with a significant medical history of chf , atrial fibrillation on xarelto, who presented to ER due to nosebleed found to have lower extremity edema and erythema. Patient admitted for CHF exacerbation with overlying cellulitis. For chf exacerbation, patient diuresed with IV lasix and improved. Pt switched to po lasix 80 mg daily and will be dc on that dose. Patient's enalapril was dc 2/2 to angioedema inpatient. Patient given 7 day course of steroids, started on iv h2 brayden and benadryl. For patient's cellulitis, patient treated with IV abx. He will be dc on 3 more days of po keflex 500 mg tid For patient's epistaxis, he was treated with a rhinorocket and his symptoms resolved. For his DM, he was dc on glyburide 10 in AM and 5 in PM. Other medications were held 2/2 to his CHF Finally, patient found to have Microscopic hematuria, for which he will f/u with uro as out pt Date of Admission:10/15/17 Date of Discharge: 10/20/17 Minutes to complete discharge: 45 Discharge Summary Reason For Visit: RESPIRATORY ACIDOSIS CELLULITIS Current Active Problems Angioedema (Acute) CHF (congestive heart failure) (Acute) Cellulitis (Acute) Microscopic hematuria (Acute) Volume overload (Acute) Atrial fibrillation (Chronic) Diabetes mellitus (Chronic) Thoracic aortic aneurysm (Chronic) Venous stasis (Chronic) Condition: Stable - Instructions Diet, Activity, Other Instructions: You were in the hospital for an exacerbation of your heart failure and a skin infection of your lower legs. Follow-up: Please follow up with your primary care provider within 1 week. You will need to monitor your kidney function closely with your doctors. 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 Mcdaniel has been provided for you. Please call to make an appointment. We have stopped your Vasotec due to the swelling in your throat, do not take any medications similar to Vasotec called GLORIA-inhibitors. 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 Please follow up with a urologist within 1 week (Dr. Rodriguez) . A referral has been provided for you. You will need to discuss the results of your urinalysis, which showed blood in your urine. Please see a ENT doctor to further evaluate the swelling in your throat as an outpatient. Contact information for the doctor who saw you in the hospital has been provided for you. Please call to make an appointment. Medication changes: Take 80 mg of Lasix 1 time per day at home instead of 80 mg twice a day. Take Keflex 500 mg three times per day for 3 more days to complete your course of antibiotics for the leg infection. You will need to follow the following prednisone taper for your throat swelling: -60 mg (10/21) -6 tablets -40 mg (10/22) -4 tablets -20 mg (10/23) -2 tablets -10 mg (10/24) -1 tablet -Stop (10/25) Take protonix 40mg 1 tablet daily before breakfast while on the prednisone. Discontinue Pioglitazone, We recommend not continuing this medication for your diabetes. Also, stop taking metformin. Increase your glyburide to 10 mg in the morning with breakfast and 5mg in the evening with dinner. We have stopped your Vasotec due to the swelling in your throat, do not take any medications similar to Vasotec called GLORIA-inhibitors. 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 Continue your other home medications as prescribed. DO NOT PICK YOUR NOSE. if you have chest pain, shortness of breath, drooling, trouble swallowing, feel like your lips or tongue are swelling or any new/worsening symptoms please come back to the hospital immediately. Referrals: Alonzo Rodriguez MD [Staff Physician] - 1 Week Ludwig Mcdaniel MD [Staff Physician] - 1 Week Stanislav Lindsay MD [Primary Care Provider] - 1 Week Carson Oh MD [Staff Physician] - Disposition: HOME - Home Medications Comprehensive Discharge Medication List: Ambulatory Orders Atorvastatin Ca [Lipitor] 10 mg PO HS 10/15/17 Carvedilol [Coreg -] 25 mg PO BID 10/15/17 Digoxin [Lanoxin -] 0.125 mg PO DAILY 10/15/17 Rivaroxaban [Xarelto -] 20 mg PO DAILY 10/15/17 Sitagliptin Phosphate [Januvia] 100 mg PO DAILY 10/15/17 Furosemide [Lasix -] 80 mg PO DAILY #60 tablet 10/18/17 Glyburide 5 mg PO HS #30 tablet 10/18/17 Glyburide 10 mg PO DAILY #60 tablet 10/18/17 Miscellaneous Drug Not In Syst [Outpatient Lab Test] 1 each ASDIR #1 misc Cephalexin Monohydrate [Keflex -] 500 mg PO TID #9 capsule 10/20/17 Pantoprazole Sodium [Protonix] 40 mg PO DAILY #4 tablet. 10/20/17 predniSONE [Deltasone -] See Taper PO DAILY #13 tablet 10/20/17 This patient is new to me today: No Emergency Visit: Yes ED Registration Date: 10/15/17 Care time: The patient presented to the Emergency Department on the above date and was hospitalized for further evaluation of their emergent condition. Critical Care patient: No - Discharge Referral Referred to [facility] No
[2017-10-20 16:58] VITALS: PULSE 69; TEMP 97.3
[2017-10-20 17:09] VITALS: BP 110/64
[2017-10-20] MEDS ORDERED: PT OWN MED DRAWER 7, Y5N ONE (17:17)
== END 2017-10-20 19:29 | disposition home or self-care (01) | DRG 602 ==
LOC: JER 19:23 → JERBED 10-15 00:27 → J4W 10-15 03:01 → J8W 10-16 15:14
PROVIDERS: ADMIT Internal Medicine; ATTEND Internal Medicine
PROC: 2Y41X5Z Packing of Nasal Region using Packing Material (ICD-10-PCS; principal; 2017-10-18)
DX: L03.116 Cellulitis of left lower limb (principal); I50.43 Acute on chronic combined systolic (congestive) and diastolic (congestive) heart failure; I11.0 Hypertensive heart disease with heart failure; L03.115 Cellulitis of right lower limb; I48.91 Unspecified atrial fibrillation; R04.0 Epistaxis; R74.0 Nonspecific elevation of levels of transaminase and lactic acid dehydrogenase [LDH]; R31.29 Other microscopic hematuria; I71.2 Thoracic aortic aneurysm, without rupture; E87.70 Fluid overload, unspecified; I87.8 Other specified disorders of veins; E11.9 Type 2 diabetes mellitus without complications; T78.3XXA Angioneurotic edema, initial encounter; E78.5 Hyperlipidemia, unspecified
CPT/HCPCS: 36415; 71045-TC-FY; 80048; 80053; 80162; 81003; 81015; 82550; 82803; 82962; 83036; 83605; 83735; 83880; 84100; 84484; 85025; 85610; 85730; 86850; 86900; 86901; 87040; 87086; 93005; 93010; 93306-TC; 93970-TC; 99283-25; J7620

== ENCOUNTER 2017-10-27 10:39 | Observation (INO) | payer OTHER, BC ==
--- NOTE | 2017-10-27 10:57 | PDOC ---
History of Present Illness - General History Source: Patient Exam Limitations: No Limitations - History of Present Illness Initial Comments: 10/27/17 11:12 The patient is a 82 year old male, with a significant past medical history of diabetes, hypertension, hyperlipidemia, AFib(on Xarelto), CHF, cellulitis and recent epistaxis(on 10/21/17), who presents to the emergency department with epistaxis from the left nostril. The patient admits he picked at his left nostril with his finger, and began to actively bleed shortly after. The patient reports he is on blood thinners and has been bleeding heavily since. Patient states the last time he experienced a similar episode, he followed up with ENT and received packing. Patient denies any current dizziness, lightheadedness, chills, or changes in vision. He denies any chest pain, shortness of breath, diaphoresis, or palpitations. He denies any nausea or vomiting. He denies any recent travel or sick contacts. Allergies: NKDA Past Surgical History: Pacemaker Social History: Non smoker. No ETOH or recreational drug use. PCP: Dr. Lindsay ENT: Dr. Oh <Hazel Friedman - Last Filed: 10/27/17 12:25> - General History Source: Patient Exam Limitations: No Limitations <Brittney Hernandez - Last Filed: 10/29/17 10:22> - General Chief Complaint: Nasal Bleeding Stated Complaint: NOSE/ Bleeding Time Seen by Provider: 10/27/17 10:54 Past History <Hazel Friedman - Last Filed: 10/27/17 12:25> - Past Medical History Cardiac Disorders: Yes (afib chf heart failure) COPD: No Diabetes: Yes HTN: Yes Hypercholesterolemia: Yes - Surgical History Cardiac Surgery: Yes (pacemaker) Orthopedic Surgery: Yes - Immunization History Td Vaccination: Yes Immunization Up to Date: Yes - Suicide/Smoking/Psychosocial Hx Smoking Status: No Smoking History: Never smoked Years of Tobacco Use: 0 Have you smoked in the past 12 months: No Number of Cigarettes Smoked Daily: 0 Cigars Per Day: 0 Hx Alcohol Use: No Drug/Substance Use Hx: No Substance Use Type: None Hx Substance Use Treatment: No <Brittney Hernandez - Last Filed: 10/29/17 10:22> - Past Medical History Allergies/Adverse Reactions: Allergies Allergy/AdvReac Type Severity Reaction Status Date / Time No Known Drug Allergies Allergy Verified 10/27/17 10:41 Home Medications: Ambulatory Orders Atorvastatin Ca [Lipitor] 10 mg PO HS 10/15/17 Carvedilol [Coreg -] 25 mg PO BID 10/15/17 Digoxin [Lanoxin -] 0.125 mg PO DAILY 10/15/17 Rivaroxaban [Xarelto -] 20 mg PO DAILY 10/15/17 Sitagliptin Phosphate [Januvia] 100 mg PO DAILY 10/15/17 Furosemide [Lasix -] 80 mg PO DAILY #60 tablet 10/18/17 Glyburide 5 mg PO HS #30 tablet 10/18/17 Glyburide 10 mg PO DAILY #60 tablet 10/18/17 Pantoprazole Sodium [Protonix] 40 mg PO DAILY #4 tablet. 10/20/17 Cephalexin [Keflex] 500 mg PO BID #10 capsule 10/28/17 Review of Systems - Review of Systems Able to Perform ROS?: Yes Comments:: 10/27/17 11:12 GENERAL/CONSTITUTIONAL: No fever or chills. No weakness. HEAD, EYES, EARS, NOSE AND THROAT: +Epistaxis from left nostril. No change in vision. No ear pain or discharge. No sore throat. CARDIOVASCULAR: No chest pain or shortness of breath. RESPIRATORY: No cough, wheezing, or hemoptysis. GASTROINTESTINAL: No nausea, vomiting, diarrhea or constipation. GENITOURINARY: No dysuria, frequency, or change in urination. MUSCULOSKELETAL: No joint or muscle swelling or pain. No neck or back pain. SKIN: No rash NEUROLOGIC: No headache, vertigo, loss of consciousness, or change in strength/ sensation. ENDOCRINE: No increased thirst. No abnormal weight change. HEMATOLOGIC/LYMPHATIC: No anemia, easy bleeding, or history of blood clots. ALLERGIC/IMMUNOLOGIC: No hives or skin allergy. <Hazel Friedman - Last Filed: 10/27/17 12:25> *Physical Exam - Vital Signs Last Vital Signs Temp Pulse Resp BP Pulse Ox 97.8 F 74 20 113/47 93 L 10/27/17 10:56 10/27/17 10:56 10/27/17 10:56 10/27/17 10:56 10/27/17 10:56 - Physical Exam Comments: 10/27/17 11:13 GENERAL: The patient is in no acute distress. HEAD: Normal with no signs of trauma. EYES: PERRLA, EOMI, sclera anicteric, conjunctiva clear. ENT: +Active bleeding from left nostril. Ears normal, oropharynx clear without exudates. Moist mucous membranes. NECK: Normal range of motion, supple without lymphadenopathy, JVD, or masses. LUNGS: Breath sounds equal, clear to auscultation bilaterally. No wheezes, and no crackles. HEART: Regular rate and rhythm, normal S1 and S2 without murmur, rub or gallop. ABDOMEN: Soft, nontender, normoactive bowel sounds. No guarding, no rebound. No masses palpable. EXTREMITIES: Normal range of motion, no edema. No clubbing or cyanosis. No erythema, or tenderness. NEUROLOGICAL: Cranial nerves II through XII grossly intact. Normal speech. No focal neurological deficits. MUSCULOSKELETAL: Back non-tender to palpation, no CVA tenderness SKIN: Warm, Dry, normal turgor, no rashes or lesions noted. <Hazel Friedman - Last Filed: 10/27/17 12:25> ED Treatment Course - LABORATORY CBC & Chemistry Diagram: 10/27/17 12:05 10/27/17 12:05 <Hazel Friedman - Last Filed: 10/27/17 12:25> - LABORATORY CBC & Chemistry Diagram: 10/28/17 10:45 10/27/17 12:05 <Brittney Hernandez - Last Filed: 10/29/17 10:22> Medical Decision Making - Medical Decision Making 10/27/17 11:21 First call placed to Dr. Oh at 11:20. Awaiting call back. Case discussed with Dr. Oh at 11:30. Second call placed to Dr. Oh at 12:25. Case rediscussed at this time. <Hazel Friedman - Last Filed: 10/27/17 12:25> - Critical Care Time Total Critical Care Time (minutes): 60 Critical Care Statement: The care of this patient involved high complexity decision making to prevent further life threatening deterioration of the patient 's condition and/or to evaluate & treat vital organ system(s) failure or risk of failure. - Medical Decision Making 10/27/17 11:25 Called to see this patient immediately Pt is hemorrhaging from his left nare Packing attempted with the only size rapid rhino available - 7.5 cm Packing placed with some outside of the nare With balloon blown up, pt continues to hemorrhage Packing removed Pt francois 10/27/17 11:[address] Orozco Recommends we get control of bleeding and send him to the office Recommends Merocel Merocel placed Pt asked to hold pressure 10/27/17 12:13 Returned to check this patient Patient has removed Merocel packing. He has replaced it with gauze packing. Intermittently holding pressure to his nose. Bleeding has improved but has not stopped. Labs pending EKG: Afib rate of 64bpm, RBBB, LAD, no ST elevations or depressions 10/27/17 12:23 Laboratory Tests 10/21/17 10/21/17 10/27/17 14:25 14:25 12:05 WBC 13.3 H D 10.5 H Hgb 9.2 L 7.9 L D Hct 28.3 L 23.8 L D Plt Count 140 D 171 D PT with INR 20.40 H INR 1.81 H PTT (Actin FS) 31.6 10/27/17 13:23 Pt packed in the ER by Dr Lambert Will place on observation to hospitalist Will transfuse 1 unit PRBCs ? discontinuing Xeralto Clinical Impression: epistaxis with anemia, initial presentation 10/27/17 18:09 <Brittney Hernandez - Last Filed: 10/29/17 10:22> *DC/Admit/Observation/Transfer - Attestations Scribe Attestion: 10/27/17 11:12 Documentation prepared by Hazel Friedman, acting as medical and scientific illustrator for Brittney Hernandez MD. <Hazel Friedman - Last Filed: 10/27/17 12:25> - Discharge Dispostion Admit: Yes <Brittney Hernandez - Last Filed: 10/29/17 10:22> Diagnosis at time of Disposition: Epistaxis, recurrent, Anemia - Discharge Dispostion Disposition: HOME Condition at time of disposition: Improved
[2017-10-27 10:58] VITALS: BMI 41.8
[2017-10-27 12:16] LABS: BASO % 0.3 % (0-2.0); EOS % 2.2 % (0-4.5); HEMATOCRIT 23.8 % (35.4-49); HEMOGLOBIN 7.9 GM/dL (11.7-16.9); LYMPH % 11.4 % (8-40); MCH 28.5 pg (25.7-33.7); MCHC 33.1 g/dl (32.0-35.9); MEAN CELL VOLUME 86.2 fl (80-96); MEAN PLT VOLUME 8.7 fl (7.5-11.1); MONO % 11.3 % (3.8-10.2); NEUT % 74.8 % (42.8-82.8); PLATELET COUNT 171 K/MM3 (134-434); RBC 2.76 M/mm3 (4.00-5.60); RDW 16.9 % (11.9-15.9); WHITE BLOOD COUNT 10.5 K/mm3 (4.0-10.0)
[2017-10-27 12:28] LABS: INR 1.5 (0.82-1.09)
[2017-10-27 12:45] LABS: ALBUMIN 3.1 g/dl (3.4-5.0); ALK PHOS 204 U/L (45-117); ANION GAP 4 (8-16); BILIRUBIN,TOTAL 1.2 mg/dL (0.2-1.0); BLOOD UREA NITROGEN 34 mg/dL (7-18); CALCIUM 7.9 mg/dL (8.5-10.1); CHLORIDE 106 mmol/L (98-107); CO2 29 mmol/L (21-32); CREATININE 1.2 mg/dL (0.7-1.3); GLUCOSE,RANDOM 138 mg/dL (74-106); POTASSIUM 4.2 mmol/L (3.5-5.1); SGOT/AST 18 U/L (15-37); SGPT/ALT 18 U/L (12-78); SODIUM 139 mmol/L (136-145); TOT PROT 6.3 g/dl (6.4-8.2)
--- NOTE | 2017-10-27 14:37 | CON.ENT ---
Consult Consult Specialty:: ENT Reason for Consultation:: nosebleed - History of Present Illness Chief Complaint: nosebleed History of Present Illness: 82M known to me for epistaxis. I saw him last week and with difficulty successfully cauterized his left anterior nasal septum. He is anticoagulated. I urged him to not pick at his nose. He came in this AM via EMS with left epistaxis. "It was beautiful. I hadn't bled at all. And I know you told me not to do this, but today I felt a scab and picked at it and then it started to bleed." ER unable to control, asked me to evaluate. Dr. Hernandez was able to get a merocel in earlier but he removed it. His Hct down to 23 and plans for transfusion and observation. - History Source History Provided By: Patient - Past Medical History Cardio/Vascular: Yes: AFIB, CAD, CHF Pulmonary: Yes: Sleep Apnea Renal/: Yes: Hematuria, Renal Calculi Endocrine: Yes: Diabetes Insipidus - Past Surgical History Past Surgical History: Yes: AICD - Alcohol/Substance Use Hx Alcohol Use: No - Smoking History Smoking history: Never smoked Have you smoked in the past 12 months: No Aproximately how many cigarettes per day: 0 Home Medications - Allergies Allergies/Adverse Reactions: Allergies Allergy/AdvReac Type Severity Reaction Status Date / Time No Known Drug Allergies Allergy Verified 10/27/17 10:41 - Home Medications Home Medications: Ambulatory Orders Atorvastatin Ca [Lipitor] 10 mg PO HS 10/15/17 Carvedilol [Coreg -] 25 mg PO BID 10/15/17 Digoxin [Lanoxin -] 0.125 mg PO DAILY 10/15/17 Rivaroxaban [Xarelto -] 20 mg PO DAILY 10/15/17 Sitagliptin Phosphate [Januvia] 100 mg PO DAILY 10/15/17 Furosemide [Lasix -] 80 mg PO DAILY #60 tablet 10/18/17 Glyburide 5 mg PO HS #30 tablet 10/18/17 Glyburide 10 mg PO DAILY #60 tablet 10/18/17 Pantoprazole Sodium [Protonix] 40 mg PO DAILY #4 tablet. 10/20/17 Review of Systems - Review of Systems HENT: reports: Epistaxis Physical Exam-ENT Vital Signs: Vital Signs Temperature 97.8 F 10/27/17 10:56 Pulse Rate 74 10/27/17 10:56 Respiratory Rate 20 10/27/17 10:56 Blood Pressure 113/47 10/27/17 10:56 O2 Sat by Pulse Oximetry (%) 93 L 10/27/17 10:56 Constitutional: Yes: Well Nourished, Other (dry blood spattered over his face, shirt, shoes. Sitting up in ER) Face: Yes: WNL Eyes: Yes: WNL Nose: Yes: Other (gauze packed into left nose, actively dripping blood) Oral/Pharynx: Yes: Other (dry blood staining) Outer Ear: Yes: WNL Ear Canal: Yes: WNL Neck: Yes: WNL Neurological: Yes: Other (CN3-7, 11, 12 intact, symmetrical) Imaging - Results Other: Other (Removed gauze from nose, suctioned anterior clot. Cotton with lido /epi inserted topically and pinched for five minutes. Removed and still rapidly bleeding from left ant septal ulcer (prev cautery site). Again packed/pinched. When removed, attempted AgNO3 but bleeding too much. Anterior rhinorocket inserted, inflated. Bleeding stopped.) Problem List - Problems (1) Epistaxis, recurrent Assessment/Plan: A/P: Epistaxis, recalcitrant, on xarelto. - Controlled with ant rhinorocket. Given his history, advise to leave in place and remove on Wednesday. - Gram positive abx coverage adv while packing in place. - Urged patient to not remove rocket - If persistent bleeding, consider holding anticoag or FFP - Transfuse and CBC observation per hospitalist. Appreciate medical care. Discussed plan with ER attending and admitting resident. Code(s): R04.0 - EPISTAXIS
--- NOTE | 2017-10-27 15:08 | PN ---
Teaching Attending Note Name of Resident: Monica Gonzalez ATTENDING PHYSICIAN STATEMENT I saw and evaluated the patient. I reviewed the resident's note and discussed the case with the resident. I agree with the resident's findings and plan as documented. SUBJECTIVE: This is an 82 year old man with a history of HTN, chronic systolic and diastolic heart failure, atrial fib, type 2 DM, hyperlipidemia, CONSTANTINO, thoracic aortic aneurysm, ICD, venous insufficiency, recurrent epistaxis who comes to the ED with nose bleed. The patient had bleeding from his left mare on recent admission requiring RhinoRocket. He is on Xarelto for atrial fib. He had been discharged on 10/20 with Hgb 9.6. On 10/21, he was seen in the ED for bleeding from his left nare. Hgb was 9.2. Bleeding was controlled with Afrin and pressure. He was discharged to follow up with Dr. Oh that day. His left anterior nasal septum was cauterized. Today, he reports picking at a scab in his left nostril, and since then, has been bleeding. Hgb is 7.9. OBJECTIVE: Vital Signs Period Temp Pulse Resp BP Sys/Lambert Pulse Ox Last 24 Hr 97.8 F 74 20 113/47 93 GENERAL: No distress, covered with dried blood HEENT: RhinoRocket in left nare, no evidence of active bleeding HEART: Irregular LUNGS: Clear ABDOMEN: Obese, soft, non-tender, non-distended EXTREMITIES: BLE edema with chronic changes Laboratory Tests 10/27/17 10/27/17 10/27/17 12:05 12:05 12:05 WBC 10.5 H RBC 2.76 L Hgb 7.9 L D Hct 23.8 L D MCV 86.2 MCH 28.5 MCHC 33.1 RDW 16.9 H Plt Count 171 D MPV 8.7 Neutrophils % 74.8 Lymphocytes % 11.4 D Monocytes % 11.3 H Eosinophils % 2.2 D Basophils % 0.3 PT with INR 17.00 H INR 1.50 H Sodium 139 Potassium 4.2 Chloride 106 Carbon Dioxide 29 Anion Gap 4 L BUN 34 H Creatinine 1.2 Creat Clearance w eGFR 58.26 Random Glucose 138 H D Calcium 7.9 L Total Bilirubin 1.2 H AST 18 D ALT 18 Alkaline Phosphatase 204 H Total Protein 6.3 L Albumin 3.1 L Home Medications Medication Instructions Recorded Atorvastatin Ca [Lipitor] 10 mg PO HS 10/15/17 Carvedilol [Coreg -] 25 mg PO BID 10/15/17 Digoxin [Lanoxin -] 0.125 mg PO DAILY 10/15/17 Rivaroxaban [Xarelto -] 20 mg PO DAILY 10/15/17 Sitagliptin Phosphate [Januvia] 100 mg PO DAILY 10/15/17 Furosemide [Lasix -] 80 mg PO DAILY #60 tablet 10/18/17 Glyburide 5 mg PO HS #30 tablet 10/18/17 Glyburide 10 mg PO DAILY #60 tablet 10/18/17 Pantoprazole Sodium [Protonix] 40 mg PO DAILY #4 tablet. 10/20/17 ASSESSMENT AND PLAN: This is an 82 year old man with a history of HTN, chronic systolic and diastolic heart failure, atrial fib, type 2 DM, hyperlipidemia, CONSTANTINO, thoracic aortic aneurysm, ICD, venous insufficiency, recurrent epistaxis who presented to the ED with epistaxis. 1. Acute blood loss anemia secondary to epistaxis - Transfuse to keep Hgb>8 - ENT consult appreciated - RhinoRocket in place - will keep in place until ENT follow-up on 11/01 - Prophylactic antibiotics - Monitor for further bleeding 2. Permanent atrial fibrillation - Rate controlled - Continue Coreg, Digoxin, Xarelto 3. Chronic systolic and diastolic heart failure - Stable - Continue Coreg, Lasix 4. HTN - Continue Coreg, Lasix 5. Hyperlipidemia - Continue Lipitor 6. Type 2 DM - Continue Januvia, Glyburide - Fingersticks with Novolog sliding scale 7. Thoracic aortic aneurysm 8. Morbid obesity with BMI 41.8 9. Obstructive sleep apnea
--- NOTE | 2017-10-27 15:40 | HP ---
CHIEF COMPLAINT: nose bleed PCP: Dr. Lindsay ENT: Dr. Oh Cards: Dr. Mcdaniel HISTORY OF PRESENT ILLNESS: 82yo obese, non-compliant man with PMH of Afib (on Xarelto), chronic mixed systolic/diastolic HF s/p ICD, DM, recurrent epistaxis, last discharged here for cellulitis and CHF exacerbation who presents with recurrent epistaxis after picking his nose. Patient was at baseline state of health earlier today when his nose started to bleed continuously after picking L nares. He reports 1 hour of active bleeding prior to arriving to ED. He endorses some lightheadedness, but denies any dyspnea, chest pain, palpitations, or syncope. He presented on 10/21 to the ED also with epistaxis that resolved with Afrin and pressure placement. While in ED, ENT was consulted. 2x attempts of chemical cauterization failed and a rhinorocket was inserted. VS were T 98.4, HR 66, 111/62, RR 18, 98% on RA. Labs were notable for Hgb 7.9 from 9.2 on 10/21/17. Recent Travel: none PAST MEDICAL HISTORY: see HPI CHF: 2D ECHO (10/15/17): LVEF 40-45%, lv fxn mildly reduced, rv moderately dilated, aicd in place, dilated IVC, rv fxn moderately reduced. PAST SURGICAL HISTORY: R hip replacement L ankle fracture repair Social History: lives with and son. ambulates with cane at baseline Smoking: never Alcohol: social Drugs: denies Family History: non-contributory Allergies/Adverse Reactions: Enalapril --> angioedema HOME MEDICATIONS: Home Medications Medication Instructions Recorded Atorvastatin Ca [Lipitor] 10 mg PO HS 10/15/17 Carvedilol [Coreg -] 25 mg PO BID 10/15/17 Digoxin [Lanoxin -] 0.125 mg PO DAILY 10/15/17 Rivaroxaban [Xarelto -] 20 mg PO DAILY 10/15/17 Sitagliptin Phosphate [Januvia] 100 mg PO DAILY 10/15/17 Furosemide [Lasix -] 80 mg PO DAILY #60 tablet 10/18/17 Glyburide 5 mg PO HS #30 tablet 10/18/17 Glyburide 10 mg PO DAILY #60 tablet 10/18/17 Pantoprazole Sodium [Protonix] 40 mg PO DAILY #4 tablet. 10/20/17 REVIEW OF SYSTEMS CONSTITUTIONAL: Absent: fever, chills, diaphoresis, generalized weakness, malaise, loss of appetite, weight change HEENT: Absent: rhinorrhea, nasal congestion, throat pain, throat swelling, difficulty swallowing, mouth swelling, ear pain, eye pain, visual changes CARDIOVASCULAR: +Lightheadedness Absent: chest pain, syncope, palpitations, irregular heart rate, peripheral edema RESPIRATORY: Absent: cough, shortness of breath, dyspnea with exertion, orthopnea, wheezing, stridor, hemoptysis GASTROINTESTINAL: Absent: abdominal pain, abdominal distension, nausea, vomiting, diarrhea, constipation, melena, hematochezia GENITOURINARY: Absent: dysuria, frequency, urgency, hesitancy, hematuria, flank pain, genital pain MUSCULOSKELETAL: Absent: myalgia, arthralgia, joint swelling, back pain, neck pain SKIN: Absent: rash, itching, pallor HEMATOLOGIC/IMMUNOLOGIC: Absent: easy bleeding, easy bruising, lymphadenopathy, frequent infections ENDOCRINE: Absent: unexplained weight gain, unexplained weight loss, heat intolerance, cold intolerance NEUROLOGIC: Absent: headache, focal weakness or paresthesias, dizziness, unsteady gait, seizure, mental status changes, bladder or bowel incontinence PSYCHIATRIC: Absent: anxiety, depression, suicidal or homicidal ideation, hallucinations. PHYSICAL EXAMINATION Vital Signs - 24 hr 10/27/17 10:56 Temperature 97.8 F Pulse Rate 74 Respiratory 20 Rate Blood Pressure 113/47 O2 Sat by Pulse 93 L Oximetry (%) GENERAL: aaox3, nad, speaking in full sentences HEENT: L nares s/p rhinorocket, no current epistaxis, sclera anicteric, conjunctiva clear LUNGS: CTAB Heart: rrr, normal s1/s2, no m/r/g UPPER EXTREMITIES: 2+ radial pulses, wwp, no peripheral edema LOWER EXTREMITIES: wwp, b/l edema, chronic venous changes, no calf ttp CBC, BMP 10/27/17 12:05 10/27/17 12:05 INR, PTT INR 1.50 (0.82-1.09) H 10/27/17 12:05 Active Medications Atorvastatin Calcium (Lipitor -) 10 mg PO HS [facility] Carvedilol (Coreg -) 25 mg PO BID [facility] Digoxin (Lanoxin -) 0.125 mg PO DAILY [facility] Furosemide (Lasix -) 80 mg PO DAILY [facility] Glyburide (Diabeta -) 5 mg PO 1630 [facility] Glyburide (Diabeta -) 10 mg PO 0700 [facility] Pantoprazole Sodium (Protonix -) 40 mg PO DAILY [facility] Rivaroxaban (Xarelto -) 20 mg PO DAILY@1800 [facility] Sitagliptin Phosphate (Januvia -) 100 mg PO 0700 [facility] ASSESSMENT/PLAN: 82yo man with PMH of Afib (on Xarelto), chronic mixed systolic/diastolic HF s/p ICD, DM, HLD, recurrent epistaxis, last discharged here 10/20 for cellulitis and CHF exacerbation who presents with L epistaxis and found to have acute blood loss anemia with Hgb 7.9. #L epistaxis 2/2 picking scab in L nares, on Xarelto, s/p anterior RhinoRocket with hemostasis achieved -ENT consulted: anterior RhinoRocket to be removed on Wednesday 11/01; d/w ENT okay to re-start Xarelto, will hold if continues to bleed -Transfuse to maintain Hgb >8 -Prophylactic abx #Afib, rat controlled -Continue digoxin, Coreg, xarelto #chronic systolic/diastolic HF, no signs of volume overload -c/w coreg, lasix 80mg po daily #HLD - c/w lipitor #T2DM - continue home Januvia and Glyburide -BGM/ISS ACHS #FEN PO intake lytes wnl DM/Na controlled diet #PPX - c/w home Xarelto/Protonix #DISPO: tele obs, anticipate d/c home tomorrow if no further bleeding and H&H stable FULL code d/w Dr. Patti Gonzalez MD PGY1 - Internal Medicine Visit type - Emergency Visit Emergency Visit: Yes ED Registration Date: 10/27/17 Care time: The patient presented to the Emergency Department on the above date and was hospitalized for further evaluation of their emergent condition. - New Patient This patient is new to me today: Yes Date on this admission: 10/27/17 - Critical Care Critical Care patient: No Hospitalist Screening - Colonoscopy Questionnaire Colonoscopy Questionnaire: Colonoscopy Questionnaire - Patient: 50 - 75 years old and never had a screening colonoscopy: No History of colon or rectal polyps, or CA: No History of IBD, Crohn's disease or UC: No History of abdominal radiation therapy as a child: No - Relative: 1 with colon or rectal CA, or polyps at age 60 or younger: Unknown Colon or rectal CA diagnosed at age 45 or younger: Unknown Multiple relatives with colon or rectal CA: Unknown - Outcome: Screening Result: Negative Screen
[2017-10-27] MEDS: PANTOPRAZOLE 40 MG TABLET (FP) PO SCH (15:42)
[2017-10-27] MEDS: RIVAROXABAN 20 MG TABLET PO SCH (15:42)
[2017-10-27] MEDS: FUROSEMIDE 40 MG TABLET (FP) PO SCH (15:42)
[2017-10-27] MEDS ORDERED: INSULIN SLIDING SCALE (NOVOLOG) 1 VIAL SQ SCH (16:30)
[2017-10-27] MEDS: glyBURIDE 5 MG TABLET (UD) PO SCH (17:16)
[2017-10-27] MEDS: INSULIN SLIDING SCALE (NOVOLOG) 1 VIAL SQ SCH ×2 (17:59→21:21)
--- NOTE | 2017-10-27 19:51 | EKG ---
Test Reason : Blood Pressure : / mmHG Vent. Rate : 064 BPM Atrial Rate : 066 BPM P-R Int : 000 ms QRS Dur : 148 ms QT Int : 450 ms P-R-T Axes : 000 -62 009 degrees QTc Int : 464 ms ATRIAL FIBRILLATION WITH OCCASIONAL ventricular-paced complexes AND WITH PREMATURE VENTRICULAR OR ABERRANTLY CONDUCTED COMPLEXES LEFT AXIS DEVIATION RIGHT BUNDLE BRANCH BLOCK INFERIOR INFARCT , AGE UNDETERMINED ANTERIOR INFARCT , AGE UNDETERMINED ABNORMAL ECG WHEN COMPARED WITH ECG OF 14-OCT-2017 23:10, ELECTRONIC VENTRICULAR PACEMAKER HAS REPLACED ATRIAL FIBRILLATION Confirmed by SEAN KNOWLES, VALORIE ([id number]) on 10/27/2017 7:50:35 PM Referred By: Confirmed By:VALORIE ESTRADA MD
[2017-10-27] MEDS: CARVEDILOL 25 MG TABLET (FP) PO SCH (21:18)
[2017-10-27] MEDS ORDERED: INSULIN (NOVOLOG) ASPART 100 UNITS/ML 10ML VIAL ONE (21:20)
[2017-10-27] MEDS ORDERED: ATORVASTATIN CA 10 MG TABLET (FP) PO SCH (22:00)
[2017-10-28 02:57] LABS: HEMOGLOBIN 7.7 GM/dL (11.7-16.9); MCH 28.8 pg (25.7-33.7); MCHC 33.5 g/dl (32.0-35.9); MEAN CELL VOLUME 85.9 fl (80-96); MEAN PLT VOLUME 8.9 fl (7.5-11.1); PLATELET COUNT 165 K/MM3 (134-434); RBC 2.67 M/mm3 (4.00-5.60); RDW 17.1 % (11.9-15.9); WHITE BLOOD COUNT 10.7 K/mm3 (4.0-10.0)
[2017-10-28] MEDS: INSULIN SLIDING SCALE (NOVOLOG) 1 VIAL SQ SCH ×3 (06:24→15:52)
[2017-10-28] MEDS ORDERED: sitaGLIPtin PHOSPHATE 100 MG TABLET (FP) PO SCH (07:00)
[2017-10-28] MEDS ORDERED: glyBURIDE 5 MG TABLET (UD) PO SCH (07:00)
--- NOTE | 2017-10-28 09:28 | PN ---
Physical Exam: SUBJECTIVE: Patient seen and examined OBJECTIVE: Vital Signs Period Temp Pulse Resp BP Sys/Lambert Pulse Ox Last 24 Hr 97.8 F-98.6 F 60-77 18-20 107-144/47-78 93-98 GENERAL: The patient is awake, alert, and fully oriented, in no acute distress. HEAD: Normal with no signs of trauma. EYES: PERRL, extraocular movements intact, sclera anicteric, conjunctiva clear. No ptosis. ENT: Ears normal, nares patent, oropharynx clear without exudates, moist mucous membranes. NECK: Trachea midline, full range of motion, supple. LUNGS: Breath sounds equal, clear to auscultation bilaterally, no wheezes, no crackles, no accessory muscle use. HEART: Regular rate and rhythm, S1, S2 without murmur, rub or gallop. ABDOMEN: Soft, nontender, nondistended, normoactive bowel sounds, no guarding, no rebound, no hepatosplenomegaly, no masses. EXTREMITIES: 2+ pulses, warm, well-perfused, no edema. NEUROLOGICAL: Cranial nerves II through XII grossly intact. Normal speech, gait not observed. PSYCH: Normal mood, normal affect. SKIN: Warm, dry, normal turgor, no rashes or lesions noted Laboratory Results - last 24 hr 10/27/17 10/27/17 10/27/17 12:05 12:05 12:05 WBC 10.5 H RBC 2.76 L Hgb 7.9 L D Hct 23.8 L D MCV 86.2 MCH 28.5 MCHC 33.1 RDW 16.9 H Plt Count 171 D MPV 8.7 Neutrophils % 74.8 Lymphocytes % 11.4 D Monocytes % 11.3 H Eosinophils % 2.2 D Basophils % 0.3 PT with INR 17.00 H INR 1.50 H Sodium 139 Potassium 4.2 Chloride 106 Carbon Dioxide 29 Anion Gap 4 L BUN 34 H Creatinine 1.2 Creat Clearance w eGFR 58.26 POC Glucometer Random Glucose 138 H D Calcium 7.9 L Total Bilirubin 1.2 H AST 18 D ALT 18 Alkaline Phosphatase 204 H Total Protein 6.3 L Albumin 3.1 L Blood Type Antibody Screen Crossmatch 10/27/17 10/27/17 10/28/17 14:13 21:17 02:30 WBC 10.7 H RBC 2.67 L Hgb 7.7 L Hct 23.0 L MCV 85.9 MCH 28.8 MCHC 33.5 RDW 17.1 H Plt Count 165 MPV 8.9 Neutrophils % Lymphocytes % Monocytes % Eosinophils % Basophils % PT with INR INR Sodium Potassium Chloride Carbon Dioxide Anion Gap BUN Creatinine Creat Clearance w eGFR POC Glucometer 203 Random Glucose Calcium Total Bilirubin AST ALT Alkaline Phosphatase Total Protein Albumin Blood Type A POSITIVE Antibody Screen Negative Crossmatch See Detail 10/28/17 05:28 WBC RBC Hgb Hct MCV MCH MCHC RDW Plt Count MPV Neutrophils % Lymphocytes % Monocytes % Eosinophils % Basophils % PT with INR INR Sodium Potassium Chloride Carbon Dioxide Anion Gap BUN Creatinine Creat Clearance w eGFR POC Glucometer 120 Random Glucose Calcium Total Bilirubin AST ALT Alkaline Phosphatase Total Protein Albumin Blood Type Antibody Screen Crossmatch Active Medications Generic Name Dose Route Start Last Admin Trade Name Freq PRN Reason Stop Dose Admin Atorvastatin Calcium 10 mg 10/27/17 22:00 10/27/17 21:18 Lipitor - PO 10 mg HS [facility] Administration Carvedilol 25 mg 10/27/17 22:00 10/27/17 21:18 Coreg - PO 25 mg BID [facility] Administration Digoxin 0.125 mg 10/28/17 10:00 Lanoxin - PO DAILY [facility] Furosemide 80 mg 10/27/17 14:15 10/27/17 15:42 Lasix - PO 80 mg DAILY [facility] Administration Glyburide 5 mg 10/27/17 16:30 10/27/17 17:16 Diabeta - PO 5 mg 1630 [facility] Administration Glyburide 10 mg 10/28/17 07:00 10/28/17 06:24 Diabeta - PO 10 mg 0700 [facility] Administration Insulin Aspart 1 vial 10/27/17 16:30 10/28/17 06:24 Novolog Vial Sliding Scale - SQ Not Given ACHS [facility] Protocol Pantoprazole Sodium 40 mg 10/27/17 14:15 10/27/17 15:42 Protonix - PO 40 mg DAILY [facility] Administration Rivaroxaban 20 mg 10/27/17 14:30 10/27/17 15:42 Xarelto - PO 20 mg DAILY@1800 [facility] Administration Sitagliptin Phosphate 100 mg 10/28/17 07:00 10/28/17 06:24 Januvia - PO 100 mg 0700 [facility] Administration ASSESSMENT/PLAN:
[2017-10-28] MEDS ORDERED: DIGOXIN 0.125 MG TABLET (FP) PO SCH (10:00)
[2017-10-28] MEDS: PANTOPRAZOLE 40 MG TABLET (FP) PO SCH (10:01)
[2017-10-28] MEDS: CARVEDILOL 25 MG TABLET (FP) PO SCH (10:01)
[2017-10-28] MEDS: FUROSEMIDE 40 MG TABLET (FP) PO SCH (10:01)
[2017-10-28 11:13] LABS: HEMATOCRIT 24.1 % (35.4-49); HEMOGLOBIN 8.1 GM/dL (11.7-16.9); MCH 28.8 pg (25.7-33.7); MCHC 33.8 g/dl (32.0-35.9); MEAN CELL VOLUME 85.1 fl (80-96); MEAN PLT VOLUME 9.1 fl (7.5-11.1); PLATELET COUNT 153 K/MM3 (134-434); RBC 2.83 M/mm3 (4.00-5.60); RDW 17.1 % (11.9-15.9); WHITE BLOOD COUNT 9.9 K/mm3 (4.0-10.0)
[2017-10-28 11:35] LABS: INR 1.59 (0.82-1.09)
[2017-10-28 14:22] VITALS: BP 120/69; PULSE 69; TEMP 98.3
--- NOTE | 2017-10-28 14:22 | DS ---
Physical Exam: SUBJECTIVE: Patient seen and examined. Offers no complaints. OBJECTIVE: Vital Signs Period Temp Pulse Resp BP Sys/Lambert Pulse Ox Last 24 Hr 97.8 F-98.6 F 60-80 18-20 107-144/56-68 95-98 PHYSICAL EXAM GENERAL: aaox3, nad, speaking in full sentences HEENT: L nare with RhinoRocket, no e/o active bleed, sclera anicteric, conjunctiva clear LUNGS: CTAB Heart: rrr, normal s1/s2, no m/r/g UPPER EXTREMITIES: 2+ radial pulses, wwp, no peripheral edema LOWER EXTREMITIES: wwp, b/l edema, chronic venous changes CBC, BMP 10/28/17 10:45 10/27/17 12:05 Hepatic Panel Total Bilirubin 1.2 mg/dL (0.2-1.0) H 10/27/17 12:05 AST 18 U/L (15-37) D 10/27/17 12:05 ALT 18 U/L (12-78) 10/27/17 12:05 Alkaline Phosphatase 204 U/L (45-117) H 10/27/17 12:05 Albumin 3.1 g/dl (3.4-5.0) L 10/27/17 12:05 HOSPITAL COURSE: Date of Admission:10/27/17 Date of Discharge: 10/28/17 Pre-Hospital Course: 82yo obese, non-compliant man with PMH of Afib (on Xarelto), chronic mixed systolic/diastolic HF s/p ICD, DM, recurrent epistaxis, last discharged here for cellulitis and CHF exacerbation who presents with recurrent epistaxis after picking his nose. Patient was at baseline state of health earlier today when his nose started to bleed continuously after picking L nares. He reports 1 hour of active bleeding prior to arriving to ED. He endorses some lightheadedness, but denies any dyspnea, chest pain, palpitations, or syncope. He presented on 10/21 to the ED also with epistaxis that resolved with Afrin and pressure placement. While in ED, ENT was consulted. 2x attempts of chemical cauterization failed and a rhinorocket was inserted. VS were T 98.4, HR 66, 111/62, RR 18, 98% on RA. Labs were notable for Hgb 7.9 from 9.2 on 10/21/17. Subsequent Hospital Course: Anterior RhinoRocket remained in place with no further bleeding. He received 2U PRBCs, and hemoglobin on discharge was 8.1. Patient's Xarelto was resumed. He was started on prophylactic antibiotics and will be seen by Dr. Oh (ENT) on 11/01 for removal of RhinoRocket. Patient's Afib remained rate controled and his home medications were continued. Minutes to complete discharge: 45 Discharge Summary Reason For Visit: RECURRENT EPISTAXIS Condition: Improved - Instructions Diet, Activity, Other Instructions: You were observed in the hospital overnight after having a nose bleed. Dr. Oh placed a RhinoRocket while you were in the Emergency Department and you were transfused with 2 Units of blood. Recommendations: -Leave the RhinoRocket in place; do not pick your nose. -You may resume your regular daily diet and activities Medications: Continue all your regular home mediations, including Xarelto, with the following addition: -Take Keflex (antibiotic) 500mg two times per day (12hours apart so 1 pill in the morning and 1 pill in the evening) until you see Dr. Oh. Your first dose will be tonight. Discuss with Dr. Oh on Wednesday, 11/01, if you should continue taking this medication. Follow-ups: -Make an appointment to see Dr. Oh on Wednesday, 11/01 to remove the RhinoRocket. -Make an appointment with Dr. Lindsay for post-hospitalization evaluation in 1 week. Please return to the Emergency Room if your nose starts to bleed, you have fever , chills, shortness of breath, or any new or concerning symptoms. Referrals: Severino Lindsay [Primary Care Provider] - Carson Oh MD [Staff Physician] - 11/01/17 (Removal of anterior RhinoRocket) Disposition: HOME - Home Medications Comprehensive Discharge Medication List: Ambulatory Orders Atorvastatin Ca [Lipitor] 10 mg PO HS 10/15/17 Carvedilol [Coreg -] 25 mg PO BID 10/15/17 Digoxin [Lanoxin -] 0.125 mg PO DAILY 10/15/17 Rivaroxaban [Xarelto -] 20 mg PO DAILY 10/15/17 Sitagliptin Phosphate [Januvia] 100 mg PO DAILY 10/15/17 Furosemide [Lasix -] 80 mg PO DAILY #60 tablet 10/18/17 Glyburide 5 mg PO HS #30 tablet 10/18/17 Glyburide 10 mg PO DAILY #60 tablet 10/18/17 Pantoprazole Sodium [Protonix] 40 mg PO DAILY #4 tablet. 10/20/17 Cephalexin [Keflex] 500 mg PO BID #10 capsule 10/28/17 This patient is new to me today: No Emergency Visit: No Critical Care patient: No - Discharge Referral Referred to [facility] No
[2017-10-28] MEDS ORDERED: CEPHALEXIN MONOHYDRATE 500 MG CAPSULE (UD) PO ONE (15:00)
[2017-10-28] MEDS ORDERED: INSULIN (NOVOLOG) ASPART 100 UNITS/ML 10ML VIAL ONE (15:46)
[2017-10-28] MEDS: glyBURIDE 5 MG TABLET (UD) PO SCH (15:52)
[2017-10-28] MEDS: RIVAROXABAN 20 MG TABLET PO SCH (17:06)
--- NOTE | 2017-10-28 18:36 | PN ---
Teaching Attending Note Name of Resident: Monica Gonzalez ATTENDING PHYSICIAN STATEMENT I saw and evaluated the patient. I reviewed the resident's note and discussed the case with the resident. I agree with the resident's findings and plan as documented. SUBJECTIVE: No complaints. OBJECTIVE: Vital Signs Period Temp Pulse Resp BP Sys/Lambert Pulse Ox Last 24 Hr 98.3 F-98.6 F 60-80 20-22 107-123/56-69 96-98 HEENT: RhinoRocket in left nare, no evidence of active bleeding HEART: Irregular LUNGS: Clear ABDOMEN: Obese, soft, non-tender, non-distended EXTREMITIES: 1+ edema Laboratory Results - last 24 hr 10/27/17 10/27/17 10/28/17 14:13 21:17 02:30 WBC 10.7 H RBC 2.67 L Hgb 7.7 L Hct 23.0 L MCV 85.9 MCH 28.8 MCHC 33.5 RDW 17.1 H Plt Count 165 MPV 8.9 PT with INR INR POC Glucometer 203 Blood Type A POSITIVE Antibody Screen Negative Crossmatch See Detail 10/28/17 10/28/17 10/28/17 05:28 10:45 10:45 WBC 9.9 RBC 2.83 L Hgb 8.1 L Hct 24.1 L MCV 85.1 MCH 28.8 MCHC 33.8 RDW 17.1 H Plt Count 153 MPV 9.1 PT with INR 18.00 H INR 1.59 H POC Glucometer 120 Blood Type Antibody Screen Crossmatch 10/28/17 10/28/17 10:59 15:51 WBC RBC Hgb Hct MCV MCH MCHC RDW Plt Count MPV PT with INR INR POC Glucometer 214 181 Blood Type Antibody Screen Crossmatch Current Medications Generic Name Dose Route Start Last Admin Trade Name Freq PRN Reason Stop Dose Admin Atorvastatin Calcium 10 mg 10/27/17 22:00 10/27/17 21:18 Lipitor - PO 10 mg HS USHA Administration Carvedilol 25 mg 10/27/17 22:00 10/28/17 10:01 Coreg - PO 25 mg BID USHA Administration Digoxin 0.125 mg 10/28/17 10:00 10/28/17 10:01 Lanoxin - PO 0.125 mg DAILY USHA Administration Furosemide 80 mg 10/27/17 14:15 10/28/17 10:01 Lasix - PO 80 mg DAILY USHA Administration Glyburide 5 mg 10/27/17 16:30 10/28/17 15:52 Diabeta - PO 5 mg 1630 USHA Administration Glyburide 10 mg 10/28/17 07:00 10/28/17 06:24 Diabeta - PO 10 mg 0700 USHA Administration Insulin Aspart 1 vial 10/27/17 16:30 10/28/17 15:52 Novolog Vial Sliding Scale - SQ 1 units ACHS USHA Administration Protocol Pantoprazole Sodium 40 mg 10/27/17 14:15 10/28/17 10:01 Protonix - PO 40 mg DAILY USHA Administration Rivaroxaban 20 mg 10/27/17 14:30 10/28/17 17:06 Xarelto - PO 20 mg DAILY@1800 USHA Administration Sitagliptin Phosphate 100 mg 10/28/17 07:00 10/28/17 06:24 Januvia - PO 100 mg 0700 USHA Administration ASSESSMENT AND PLAN: This is an 82 year old man with a history of HTN, chronic systolic and diastolic heart failure, atrial fib, type 2 DM, hyperlipidemia, CONSTANTINO, thoracic aortic aneurysm, ICD, venous insufficiency, recurrent epistaxis who presented to the ED with epistaxis. 1. Acute blood loss anemia secondary to epistaxis - No further bleeding noted - Transfused 3 units PRBCs - RhinoRocket in place in left nostril - will keep in place until ENT follow- up on 11/01 - Prophylactic antibiotics 2. Permanent atrial fibrillation - Rate controlled - Continue Coreg, Digoxin, Xarelto 3. Chronic systolic and diastolic heart failure - Stable - Continue Coreg, Lasix 4. HTN - Continue Coreg, Lasix 5. Hyperlipidemia - Continue Lipitor 6. Type 2 DM - Continue Januvia, Glyburide - Fingersticks with Novolog sliding scale 7. Thoracic aortic aneurysm 8. Morbid obesity with BMI 41.8 9. Obstructive sleep apnea 10. Ok for discharge home with ENT follow-up on November 01
== END 2017-10-28 19:01 | disposition home or self-care (01) ==
LOC: JER 10:39 → JERBED 14:23 → J6S 17:40
PROVIDERS: ADMIT Internal Medicine; ATTEND Internal Medicine
PROC: 095KXZZ Destruction of Nasal Mucosa and Soft Tissue, External Approach (ICD-10-PCS; principal; 2017-10-27)
PROC: 2Y41X5Z Packing of Nasal Region using Packing Material (ICD-10-PCS; 2017-10-27)
PROC: 30233N1 Transfusion of Nonautologous Red Blood Cells into Peripheral Vein, Percutaneous Approach (ICD-10-PCS; 2017-10-27)
PROC: 3E013VG Introduction of Insulin into Subcutaneous Tissue, Percutaneous Approach (ICD-10-PCS; 2017-10-27)
DX: R04.0 Epistaxis (principal); I10 Essential (primary) hypertension; I48.2 Chronic atrial fibrillation; I50.42 Chronic combined systolic (congestive) and diastolic (congestive) heart failure; E78.5 Hyperlipidemia, unspecified; E11.9 Type 2 diabetes mellitus without complications; D50.0 Iron deficiency anemia secondary to blood loss (chronic); G47.33 Obstructive sleep apnea (adult) (pediatric); E66.9 Obesity, unspecified; Z68.41 Body mass index [BMI] 40.0-44.9, adult; Z79.01 Long term (current) use of anticoagulants; Z95.0 Presence of cardiac pacemaker; Z79.84 Long term (current) use of oral hypoglycemic drugs; Z86.79 Personal history of other diseases of the circulatory system
CPT/HCPCS: 30901; 36415; 36430; 80053; 82962; 85025; 85027; 85610; 86922; 93005; 93010; 96372; 99285-25; G0378; P9038; P9058

== ENCOUNTER 2017-10-29 18:24 | Emergency (ER) | payer OTHER, BC ==
[2017-10-29 18:44] VITALS: TEMP 98; BMI 41.8
[2017-10-29 19:25] LABS: BASO % 0.4 % (0-2.0); EOS % 2.7 % (0-4.5); HEMATOCRIT 23.7 % (35.4-49); LYMPH % 11.1 % (8-40); MCH 28.9 pg (25.7-33.7); MCHC 33.9 g/dl (32.0-35.9); MEAN CELL VOLUME 85.2 fl (80-96); MEAN PLT VOLUME 9.3 fl (7.5-11.1); MONO % 12.9 % (3.8-10.2); NEUT % 72.9 % (42.8-82.8); PLATELET COUNT 180 K/MM3 (134-434); RBC 2.78 M/mm3 (4.00-5.60); RDW 17.3 % (11.9-15.9); WHITE BLOOD COUNT 9.6 K/mm3 (4.0-10.0)
[2017-10-29 19:41] LABS: INR 2.6 (0.82-1.09); PROTHROMBIN TIME (PATIENT) 29.4 SEC (9.7-13.0)
[2017-10-29 19:44] LABS: ACTIVATED PTT 40.8 SECONDS (26.9-34.4)
[2017-10-29 19:59] LABS: ALBUMIN 3.3 g/dl (3.4-5.0); ANION GAP 4 (8-16); BILIRUBIN,TOTAL 1.1 mg/dL (0.2-1.0); BLOOD UREA NITROGEN 30 mg/dL (7-18); CALCIUM 7.9 mg/dL (8.5-10.1); CHLORIDE 106 mmol/L (98-107); CO2 29 mmol/L (21-32); CREATININE 1.5 mg/dL (0.7-1.3); GLUCOSE,RANDOM 155 mg/dL (74-106); POTASSIUM 4.6 mmol/L (3.5-5.1); SGOT/AST 16 U/L (15-37); SGPT/ALT 16 U/L (12-78); SODIUM 139 mmol/L (136-145); TOT PROT 6.5 g/dl (6.4-8.2)
[2017-10-29 20:01] LABS: ALK PHOS 196 U/L (45-117)
[2017-10-29] MEDS ORDERED: CEFAZOLIN 1 GM in DEXTROSE 5%-WATER - 50 ML IVPB ONE (20:47)
[2017-10-29] MEDS ORDERED: ceFAZolin SODIUM 1 GM VIAL ONE (20:49)
[2017-10-29 20:58] VITALS: BP 118/65; PULSE 78
--- NOTE | 2017-10-29 21:01 | PDOC ---
History of Present Illness - General History Source: Patient, Spouse, Old Records Exam Limitations: No Limitations - History of Present Illness Initial Comments: 10/29/17 21:42 Patient is an 82 year old male with a significant past medical history of Afib ( on Xarelto), chronic mixed systolic/diastolic HF s/p ICD, DM, recurrent epistaxis, last discharged here 10/20 for cellulitis and CHF exacerbation who presents to the ED with complaints of nose bleeding that began this afternoon earlier today while at home. As per patient's , patient came into the ED last week for nose bleed and was admitted for increased bilateral leg cellulitis. She reports patient was discharged 5 days later, but returned to the ED yesterday afternoon for nose bleed. Patient reports Dr. Oh came into the ED and packed his nose with nasal tampon and stated he could return to normal daily activities and see him wednesday for removal. Patient reports sitting at home earlier this afternoon when he began to experiencing sudden left nostril nose bleeding, prompting him to come into the ED for further evaluation. Denies chest pain, Sob. Denies nausea, vomiting. Denies contact with sick individuals, out of state travelling. Denies diarrhea, constipation, dysuria. Denies trauma to affected area. Allergies: None Social history: lives with and son. ambulates with cane at baseline. No smoking. No alcohol. No illicit drugs. Surgical history: R hip replacement, L ankle fracture repair PMD: Dr. Stanislav Lidnsay ENT: Dr. Oh Cardio: Dr. Potts <Kemar Plascencia - Last Filed: 10/29/17 21:42> <Teresa Snow - Last Filed: 10/30/17 20:17> - General Chief Complaint: Nasal Bleeding Stated Complaint: NOSE BLEED Time Seen by Provider: 10/29/17 19:41 Past History <Kemar Plascencia - Last Filed: 10/29/17 21:42> - Past Medical History Cardiac Disorders: Yes (afib chf heart failure) COPD: No CHF: Yes Diabetes: Yes HTN: Yes Hypercholesterolemia: Yes - Surgical History Cardiac Surgery: Yes (pacemaker) Orthopedic Surgery: Yes - Immunization History Td Vaccination: Yes Immunization Up to Date: Yes - Suicide/Smoking/Psychosocial Hx Smoking Status: No Smoking History: Unknown if ever smoked Years of Tobacco Use: 0 Have you smoked in the past 12 months: No Number of Cigarettes Smoked Daily: 0 Cigars Per Day: 0 Hx Alcohol Use: No Drug/Substance Use Hx: No Substance Use Type: None Hx Substance Use Treatment: No <SnowTeresa - Last Filed: 10/30/17 20:17> - Past Medical History Allergies/Adverse Reactions: Allergies Allergy/AdvReac Type Severity Reaction Status Date / Time No Known Drug Allergies Allergy Verified 10/29/17 18:41 Home Medications: Ambulatory Orders Atorvastatin Ca [Lipitor] 10 mg PO HS 10/15/17 Carvedilol [Coreg -] 25 mg PO BID 10/15/17 Digoxin [Lanoxin -] 0.125 mg PO DAILY 10/15/17 Rivaroxaban [Xarelto -] 20 mg PO ASDIR 10/15/17 Sitagliptin Phosphate [Januvia] 100 mg PO DAILY 10/15/17 Furosemide [Lasix -] 80 mg PO DAILY #60 tablet 10/18/17 Glyburide 5 mg PO HS #30 tablet 10/18/17 Glyburide 10 mg PO DAILY #60 tablet 10/18/17 Pantoprazole Sodium [Protonix] 40 mg PO DAILY #4 tablet. 10/20/17 Cephalexin [Keflex] 500 mg PO BID #10 capsule 10/28/17 Review of Systems - Review of Systems Able to Perform ROS?: Yes Comments:: 10/29/17 21:42 GENERAL/CONSTITUTIONAL: No fever or chills. No weakness. HEAD, EYES, EARS, NOSE AND THROAT: +Left nostril bleeding. No change in vision. No ear pain or discharge. No sore throat. CARDIOVASCULAR: No chest pain or shortness of breath. RESPIRATORY: No cough, wheezing, or hemoptysis. GASTROINTESTINAL: No nausea, vomiting, diarrhea or constipation. GENITOURINARY: No dysuria, frequency, or change in urination. MUSCULOSKELETAL: No joint or muscle swelling or pain. No neck or back pain. SKIN: No rash NEUROLOGIC: No headache, vertigo, loss of consciousness, or change in strength/ sensation. ENDOCRINE: No increased thirst. No abnormal weight change. HEMATOLOGIC/LYMPHATIC: No anemia, easy bleeding, or history of blood clots. ALLERGIC/IMMUNOLOGIC: No hives or skin allergy. <Kemar Plascencia - Last Filed: 10/29/17 21:42> *Physical Exam - Vital Signs Last Vital Signs Temp Pulse Resp BP Pulse Ox 98.0 F 78 22 118/65 97 10/29/17 18:41 10/29/17 20:56 10/29/17 20:56 10/29/17 20:56 10/29/17 20:56 - Physical Exam Comments: 10/29/17 21:42 GENERAL: Awake, alert, and fully oriented, in no acute distress HEAD: No signs of trauma EYES: PERRLA, EOMI, sclera anicteric, conjunctiva clear ENT: +Dry clotted blood on uvula. +Dry blood on hard upper palate. +Blood clot in right nare. +Deflated nasal tampon in left nare, active bleeding before inserting and blowing up. No active bleeding down throat. hearing grossly normal, nares patent, oropharynx clear without exudates. Moist mucosa NECK: Normal ROM, supple, no lymphadenopathy, JVD, or masses LUNGS: Breath sounds equal, clear to auscultation bilaterally. No wheezes, and no crackles HEART: Regular rate and rhythm, normal S1 and S2, no murmurs, rubs or gallops ABDOMEN: Soft, nontender, normoactive bowel sounds. No guarding, no rebound. No masses EXTREMITIES: +Bilateral leg swelling, improving since last inspection. Normal range of motion, no edema. No clubbing or cyanosis. No cords, erythema, or tenderness NEUROLOGICAL: Cranial nerves II through XII grossly intact. Normal speech, normal gait <Kemar Plascencia - Last Filed: 10/29/17 21:42> - Vital Signs Last Vital Signs Temp Pulse Resp BP Pulse Ox 98.0 F 78 22 118/65 97 10/29/17 18:41 10/29/17 20:56 10/29/17 20:56 10/29/17 20:56 10/29/17 20:56 <Teresa Snow - Last Filed: 10/30/17 20:17> Heart Score/ECG Review - ECG Intrepretation Comment:: 10/29/17 21:32 Completed @20:00:06 Atrial fibrillation Left axis deviation Right bundle branch block Inferior infarct, age undetermined Ageroseptal infarct, age undetermined Abnormal ECG Vent. rate 62 bpm AK interval * ms QRS duration 178 ms <Kemar Plascencia - Last Filed: 10/29/17 21:42> ED Treatment Course - LABORATORY CBC & Chemistry Diagram: 10/29/17 19:00 10/29/17 19:00 - ADDITIONAL ORDERS Additional order review: Laboratory Results 10/29/17 10/29/17 10/29/17 19:19 19:00 19:00 PT with INR 29.40 H INR 2.60 H D PTT (Actin FS) 40.8 H Sodium 139 Potassium 4.6 Chloride 106 Carbon Dioxide 29 Anion Gap 4 L BUN 30 H Creatinine 1.5 H D Creat Clearance w eGFR 45.03 Random Glucose 155 H Calcium 7.9 L Total Bilirubin 1.1 H AST 16 ALT 16 Alkaline Phosphatase 196 H Creatine Kinase 48 Troponin I < 0.02 Total Protein 6.5 Albumin 3.3 L Blood Type A POSITIVE Antibody Screen Negative 10/29/17 19:00 RBC 2.78 L MCV 85.2 MCHC 33.9 RDW 17.3 H MPV 9.3 Neutrophils % 72.9 Lymphocytes % 11.1 Monocytes % 12.9 H Eosinophils % 2.7 Basophils % 0.4 - Medications Given in the ED: ED Medications Discontinued Medications Generic Name Dose Route Start Last Admin Trade Name Freq PRN Reason Stop Dose Admin Cefazolin Sodium 1 gm/ 50 mls @ 100 mls/hr 10/29/17 20:47 10/29/17 20:55 Dextrose IVPB 10/29/17 21:16 100 mls/hr ONCE ONE Administration <Kemar Plascencia - Last Filed: 10/29/17 21:42> - LABORATORY CBC & Chemistry Diagram: 10/29/17 19:00 10/29/17 19:00 - ADDITIONAL ORDERS Additional order review: Laboratory Results 10/29/17 10/29/17 19:00 19:00 PT with INR 29.40 H INR 2.60 H D PTT (Actin FS) 40.8 H Sodium 139 Potassium 4.6 Chloride 106 Carbon Dioxide 29 Anion Gap 4 L BUN 30 H Creatinine 1.5 H D Creat Clearance w eGFR 45.03 Random Glucose 155 H Calcium 7.9 L Total Bilirubin 1.1 H AST 16 ALT 16 Alkaline Phosphatase 196 H Creatine Kinase 48 Troponin I < 0.02 Total Protein 6.5 Albumin 3.3 L 10/29/17 19:00 RBC 2.78 L MCV 85.2 MCHC 33.9 RDW 17.3 H MPV 9.3 Neutrophils % 72.9 Lymphocytes % 11.1 Monocytes % 12.9 H Eosinophils % 2.7 Basophils % 0.4 <Teresa Snow - Last Filed: 10/30/17 20:17> Medical Decision Making - Medical Decision Making 10/30/17 20:14 Pt comes with blood that leaked thru his rhino rocket. At this time, he is hemodynamically stable. Hb/HCT normal. Pt's INR is more elevated that last time , as he takes his blood thinners every other day. Pt's rhino rocket was deflated and advanced and reinflated. He feels fine. He will be given a dose of ancef in the ER as he missed a dose of keflex. Follow with ENT as previously scheduled. <Teresa Snow - Last Filed: 10/30/17 20:17> *DC/Admit/Observation/Transfer - Attestations Scribe Attestion: 10/29/17 21:43 Documentation prepared by Kemar Plascencia, acting as biomedical equipment support specialist for Teresa Snow MD/DO. <Kemar Plascencia - Last Filed: 10/29/17 21:42> <Teresa Snow - Last Filed: 10/30/17 20:17> Diagnosis at time of Disposition: Epistaxis, recurrent - Discharge Dispostion Disposition: HOME Condition at time of disposition: Stable - Patient Instructions Printed Discharge Instructions: Nosebleeds (Alternative Therapy), DI for Nosebleed
--- NOTE | 2017-10-30 14:35 | EKG ---
Test Reason : Blood Pressure : / mmHG Vent. Rate : 062 BPM Atrial Rate : 044 BPM P-R Int : 000 ms QRS Dur : 178 ms QT Int : 446 ms P-R-T Axes : 000 -70 034 degrees QTc Int : 452 ms ATRIAL FIBRILLATION LEFT AXIS DEVIATION RIGHT BUNDLE BRANCH BLOCK INFERIOR INFARCT , AGE UNDETERMINED ANTEROSEPTAL INFARCT , AGE UNDETERMINED ABNORMAL ECG WHEN COMPARED WITH ECG OF 27-OCT-2017 14:32, ATRIAL FIBRILLATION HAS REPLACED ELECTRONIC VENTRICULAR PACEMAKER Confirmed by MD Kim Daniel ([id number]) on 10/30/2017 2:34:42 PM Referred By: Confirmed By:Umer Kim MD
== END 2017-10-29 21:12 | disposition home or self-care (01) ==
LOC: JER 18:24
PROC: 2Y41X5Z Packing of Nasal Region using Packing Material (ICD-10-PCS; principal; 2017-10-29)
DX: R04.0 Epistaxis (principal); I48.2 Chronic atrial fibrillation; Z79.01 Long term (current) use of anticoagulants; Z79.84 Long term (current) use of oral hypoglycemic drugs; E11.9 Type 2 diabetes mellitus without complications; I50.42 Chronic combined systolic (congestive) and diastolic (congestive) heart failure; I10 Essential (primary) hypertension; E78.00 Pure hypercholesterolemia, unspecified; I25.2 Old myocardial infarction; Z96.641 Presence of right artificial hip joint; Z95.810 Presence of automatic (implantable) cardiac defibrillator
CPT/HCPCS: 30901; 36415; 80053; 82550; 84484; 85025; 85610; 85730; 86850; 86900; 86901; 93005; 93010; 99283-25

== ENCOUNTER 2017-11-01 15:20 | Observation (INO) | payer OTHER, BC ==
--- NOTE | 2017-11-01 16:02 | PDOC ---
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 He has had prior similar symptoms, previously packed and cauterized by Dr. Oh. He recently had packing placed, but it dislodged. He has had to have transfusions due to bleeding in the past. He is on Xarelto for afib. Denies weakness. Past History - Past Medical History Allergies/Adverse Reactions: Allergies Allergy/AdvReac Type Severity Reaction Status Date / Time No Known Drug Allergies Allergy Verified 10/29/17 18:41 Home Medications: Ambulatory Orders Atorvastatin Ca [Lipitor] 10 mg PO HS 10/15/17 Carvedilol [Coreg -] 25 mg PO BID 10/15/17 Digoxin [Lanoxin -] 0.125 mg PO DAILY 10/15/17 Sitagliptin Phosphate [Januvia] 100 mg PO DAILY 10/15/17 Furosemide [Lasix -] 80 mg PO DAILY #60 tablet 10/18/17 Glyburide 5 mg PO HS #30 tablet 10/18/17 Glyburide 10 mg PO DAILY #60 tablet 10/18/17 Pantoprazole Sodium [Protonix] 40 mg PO DAILY #4 tablet. 10/20/17 Amox-Tr/K Cl [Augmentin 875-125mg Tablet -] 1 tab PO BID@0800,1730 5 Days #10 tablet 11/02/17 Rivaroxaban [Xarelto -] 15 mg PO DAILY #30 tab 11/02/17 Cardiac Disorders: Yes (afib chf heart failure) COPD: No CHF: Yes Diabetes: Yes HTN: Yes Hypercholesterolemia: Yes - Surgical History Cardiac Surgery: Yes (pacemaker) Orthopedic Surgery: Yes - Immunization History Td Vaccination: Yes Immunization Up to Date: Yes - Suicide/Smoking/Psychosocial Hx Smoking Status: No Smoking History: Never smoked Years of Tobacco Use: 0 Have you smoked in the past 12 months: No Number of Cigarettes Smoked Daily: 0 Cigars Per Day: 0 Information on smoking cessation initiated: No Hx Alcohol Use: No Drug/Substance Use Hx: No Substance Use Type: None Hx Substance Use Treatment: No Review of Systems - Review of Systems Able to Perform ROS?: Yes Comments:: GENERAL/CONSTITUTIONAL: No fever or chills. No weakness. HEAD, EYES, EARS, NOSE AND THROAT: No change in vision. No ear pain or discharge. No sore throat. +Nosebleed. CARDIOVASCULAR: No chest pain or shortness of breath. RESPIRATORY: No cough, wheezing, or hemoptysis. GASTROINTESTINAL: No nausea, vomiting, diarrhea or constipation. GENITOURINARY: No dysuria, frequency, or change in urination. MUSCULOSKELETAL: No joint or muscle swelling or pain. No neck or back pain. SKIN: No rash NEUROLOGIC: No headache, vertigo, loss of consciousness, or change in strength/ sensation. ENDOCRINE: No increased thirst. No abnormal weight change. HEMATOLOGIC/LYMPHATIC: No anemia, easy bleeding, or history of blood clots. ALLERGIC/IMMUNOLOGIC: No hives or skin allergy. *Physical Exam - Vital Signs Last Vital Signs Temp Pulse Resp BP Pulse Ox 98.3 F 85 18 102/76 98 11/01/17 15:20 11/01/17 15:20 11/01/17 15:20 11/01/17 15:20 11/01/17 15:20 - Physical Exam Comments: GENERAL: Awake, alert, and fully oriented, in no acute distress HEAD: No signs of trauma EYES: PERRLA, EOMI, sclera anicteric, conjunctiva clear ENT: Auricles normal inspection, hearing grossly normal, oropharynx +blood. Moist mucosa. +Large clots passing from the L nare. NECK: Normal ROM, supple, no lymphadenopathy, JVD, or masses LUNGS: Breath sounds equal, clear to auscultation bilaterally. No wheezes, and no crackles HEART: Regular rate and rhythm, normal S1 and S2, no murmurs, rubs or gallops ABDOMEN: Soft, nontender, normoactive bowel sounds. No guarding, no rebound. No masses EXTREMITIES: Normal range of motion, no edema. No clubbing or cyanosis. No cords, erythema, or tenderness NEUROLOGICAL: Cranial nerves II through XII grossly intact. Normal speech, normal gait SKIN: Warm, Dry, normal turgor, no rashes or lesions noted. Procedures - Additional Procedures Progress: 11/01/17 16:26 Nasal packing to L nare. Patient with large clot that was removed prior to insertion of packing. Anterior/posterior packing placed without any complications. Patient tolerated well. +Hemostasis. ED Treatment Course - LABORATORY CBC & Chemistry Diagram: 11/02/17 16:00 11/02/17 06:00 Medical Decision Making - Medical Decision Making 11/01/17 16:49 Labs sent, as patient has had significant bleeding in ED. If H&H stable, will DC home. 11/01/17 19:09 Pt with drop in Hb, will require transfusion. In light of history of CHF, will need to be transfused very slowly. D/w hospitalist Dr. Mclcelland, will admit. *DC/Admit/Observation/Transfer Diagnosis at time of Disposition: Epistaxis, recurrent - Discharge Dispostion Disposition: HOME Condition at time of disposition: Improved Decision to Admit order: Yes - Prescriptions - Referrals - Patient Instructions - Post Discharge Activity
[2017-11-01 17:53] LABS: BASO % 0.5 % (0-2.0); EOS % 1.9 % (0-4.5); LYMPH % 10.5 % (8-40); MCH 28.6 pg (25.7-33.7); MEAN CELL VOLUME 86.8 fl (80-96); MEAN PLT VOLUME 10.2 fl (7.5-11.1); MONO % 11.1 % (3.8-10.2); PLATELET COUNT 271 K/MM3 (134-434); RBC 2.31 M/mm3 (4.00-5.60); RDW 17.1 % (11.9-15.9); WHITE BLOOD COUNT 11.5 K/mm3 (4.0-10.0)
[2017-11-01 17:58] LABS: HEMOGLOBIN 6.6 GM/dL (11.7-16.9)
[2017-11-01 18:07] LABS: INR 1.65 (0.82-1.09); PROTHROMBIN TIME (PATIENT) 18.7 SEC (9.7-13.0)
[2017-11-01 18:16] LABS: ALBUMIN 2.9 g/dl (3.4-5.0); ALK PHOS 177 U/L (45-117); ANION GAP 6 (8-16); BILIRUBIN,TOTAL 1.1 mg/dL (0.2-1.0); BLOOD UREA NITROGEN 34 mg/dL (7-18); CALCIUM 7.7 mg/dL (8.5-10.1); CHLORIDE 105 mmol/L (98-107); CO2 27 mmol/L (21-32); CREATININE 1.1 mg/dL (0.7-1.3); GLUCOSE,RANDOM 120 mg/dL (74-106); SGPT/ALT 16 U/L (12-78); SODIUM 138 mmol/L (136-145); TOT PROT 5.9 g/dl (6.4-8.2)
--- NOTE | 2017-11-01 18:17 | CON.ENT ---
Consult Consult Specialty:: ent Reason for Consultation:: nosebleed - History of Present Illness Chief Complaint: nosebleed History of Present Illness: 82M had been discharged from [facility] after his recent stay. Was at home and packing fell out 'on it's own.' Earlier today. A few hours later began to bleed again from left nose heavily. Came in by ambulance, rhinorocket placed and bleeding immediately stopped. Hct dropped to 20. - History Source History Provided By: Patient Limitations to Obtaining History: No Limitations - Past Medical History Cardio/Vascular: Yes: AFIB, CAD, CHF Pulmonary: Yes: Sleep Apnea Renal/: Yes: Hematuria, Renal Calculi Endocrine: Yes: Diabetes Insipidus - Past Surgical History Past Surgical History: Yes: AICD - Alcohol/Substance Use Hx Alcohol Use: No - Smoking History Smoking history: Never smoked Have you smoked in the past 12 months: No Aproximately how many cigarettes per day: 0 Home Medications - Allergies Allergies/Adverse Reactions: Allergies Allergy/AdvReac Type Severity Reaction Status Date / Time No Known Drug Allergies Allergy Verified 10/29/17 18:41 - Home Medications Home Medications: Ambulatory Orders Atorvastatin Ca [Lipitor] 10 mg PO HS 10/15/17 Carvedilol [Coreg -] 25 mg PO BID 10/15/17 Digoxin [Lanoxin -] 0.125 mg PO DAILY 10/15/17 Rivaroxaban [Xarelto -] 20 mg PO ASDIR 10/15/17 Sitagliptin Phosphate [Januvia] 100 mg PO DAILY 10/15/17 Furosemide [Lasix -] 80 mg PO DAILY #60 tablet 10/18/17 Glyburide 5 mg PO HS #30 tablet 10/18/17 Glyburide 10 mg PO DAILY #60 tablet 10/18/17 Pantoprazole Sodium [Protonix] 40 mg PO DAILY #4 tablet. 10/20/17 Cephalexin [Keflex] 500 mg PO BID #10 capsule 10/28/17 Physical Exam-ENT Vital Signs: Vital Signs Temperature 98.3 F 11/01/17 15:20 Pulse Rate 85 11/01/17 15:20 Respiratory Rate 18 11/01/17 15:20 Blood Pressure 102/76 11/01/17 15:20 O2 Sat by Pulse Oximetry (%) 98 11/01/17 15:20 Constitutional: Yes: Well Nourished, No Distress, Other (sitting on side of bed. NAD. no bleeding) Head: Yes: WNL Face: Yes: WNL Eyes: Yes: WNL Nose: Yes: WNL, Other (left rhinorocket inserted, ~1cm out. No bleeding) Oral/Pharynx: Yes: Other (fair dentition. post o/p clear, no active bleeding) Outer Ear: Yes: WNL Ear Canal: Yes: WNL Tympanic Membrane: Yes: Other (hemotympanum L>R) Neck: Yes: WNL Neurological: Yes: Cran Nerves II-XII Intact (CN3-7,11,12 intact grossly symmetrical) Problem List - Problems (1) Epistaxis, recurrent Assessment/Plan: Recurrent Epistaxis on xarelto - He has been seen to have anterior epistaxis that failed my attempt to cauterize last week likely bc of xarelto. - Does well packed but his packing again came out. Urged him not to pick it out. - No further intervention advised (ie: cautery) at this time given bleeding stopped. - Gram + prophy abx while packing in place. - Likely xfusion per ER - Given his repeat epistaxis, if able, may consider holding xarelto for a few weeks, though I defer this decision to Cardiology/Medical team. I'd like him to see me Wednesday for removal of packing and possible cautery. Please call if any questions. Code(s): R04.0 - EPISTAXIS
[2017-11-01] MEDS ORDERED: AMOX TR/POT CLAV 875MG/125MG TABLETS (FP) PO ONE (18:20)
[2017-11-01 18:27] LABS: POTASSIUM 4.9 mmol/L (3.5-5.1); SGOT/AST 19 U/L (15-37)
[2017-11-01] MEDS ORDERED: AMOX TR/POT CLAV 875MG/125MG TABLETS (FP) ONE (19:01)
--- NOTE | 2017-11-01 19:18 | PN ---
Teaching Attending Note Name of Resident: Paty Pinzon ATTENDING PHYSICIAN STATEMENT I saw and evaluated the patient. I reviewed the resident's note and discussed the case with the resident. I agree with the resident's findings and plan as documented. SUBJECTIVE: 82 M Obese with pmhx. of A-FIB (on Xarelto), chronic systolic/diastolic HF s/p ICD, DM, recurrent epistaxis, who was recent admission on 10/27 for epistaxis who was last d/c'd 10/27, who began to bleed from left nose heavily. Rhinorocket placed in nose. PRBC's ordered by ED. States he started bleeding this afternoon and it was continous. Notes his Xarelto was recently changed to every other day. Denies any chest pain, pressure or shortness of breath. States he has had prior bouts of hematuria, which have resolved. No dizziness or lightheadedness. OBJECTIVE: Physical: VS: Vital Signs Period Temp Pulse Resp BP Sys/Lambert Pulse Ox Last 24 Hr 97.9 F-98.3 F 83-85 18-18 102-109/74-76 96-98 GEN: NAD, Resting in bed, AA0X3 HEENT: NCAT, PERRL, Throat without erythema or exudates CARD: RRR S1, S2 RESP: CTAB ABD: BSx4, NTD to palpation EXT: - C/C/E CBCD WBC 11.5 K/mm3 (4.0-10.0) H 11/01/17 17:35 RBC 2.31 M/mm3 (4.00-5.60) L 11/01/17 17:35 Hgb 6.6 GM/dL (11.7-16.9) L* D 11/01/17 17:35 Hct 20.0 % (35.4-49) L D 11/01/17 17:35 MCV 86.8 fl (80-96) 11/01/17 17:35 MCHC 33.0 g/dl (32.0-35.9) 11/01/17 17:35 RDW 17.1 % (11.9-15.9) H 11/01/17 17:35 Plt Count 271 K/MM3 (134-434) D 11/01/17 17:35 MPV 10.2 fl (7.5-11.1) 11/01/17 17:35 CMP Sodium 138 mmol/L (136-145) 11/01/17 17:35 Potassium 4.9 mmol/L (3.5-5.1) 11/01/17 17:35 Chloride 105 mmol/L (98-107) 11/01/17 17:35 Carbon Dioxide 27 mmol/L (21-32) 11/01/17 17:35 Anion Gap 6 (8-16) L 11/01/17 17:35 BUN 34 mg/dL (7-18) H 11/01/17 17:35 Creatinine 1.1 mg/dL (0.7-1.3) D 11/01/17 17:35 Creat Clearance w eGFR > 60 (>60) 11/01/17 17:35 Random Glucose 120 mg/dL (74-106) H D 11/01/17 17:35 Calcium 7.7 mg/dL (8.5-10.1) L 11/01/17 17:35 Total Bilirubin 1.1 mg/dL (0.2-1.0) H 11/01/17 17:35 AST 19 U/L (15-37) 11/01/17 17:35 ALT 16 U/L (12-78) 11/01/17 17:35 Alkaline Phosphatase 177 U/L (45-117) H 11/01/17 17:35 Total Protein 5.9 g/dl (6.4-8.2) L 11/01/17 17:35 Albumin 2.9 g/dl (3.4-5.0) L 11/01/17 17:35 Ambulatory Orders Atorvastatin Ca [Lipitor] 10 mg PO HS 10/15/17 Carvedilol [Coreg -] 25 mg PO BID 10/15/17 Digoxin [Lanoxin -] 0.125 mg PO DAILY 10/15/17 Rivaroxaban [Xarelto -] 20 mg PO ASDIR 10/15/17 Sitagliptin Phosphate [Januvia] 100 mg PO DAILY 10/15/17 Furosemide [Lasix -] 80 mg PO DAILY #60 tablet 10/18/17 Glyburide 5 mg PO HS #30 tablet 10/18/17 Glyburide 10 mg PO DAILY #60 tablet 10/18/17 Pantoprazole Sodium [Protonix] 40 mg PO DAILY #4 tablet. 10/20/17 Cephalexin [Keflex] 500 mg PO BID #10 capsule 10/28/17 ASSESSMENT AND PLAN: 82 M Obese with pmhx. of A-FIB (on Xarelto), chronic systolic/diastolic HF s/p ICD, DM, recurrent epistaxis, who presents with recurrent epistaxis requiring tranfusion. 1.) Epistaxis, Recurrent - S/P Rhinorocket - Seen by ENT in ED - C/W Augmentin - Hold Xarelto, Cardiology opinion on A/C 2.) Normocytic Anemia - Tranfuse to Hgb >7 - Repeat coags - Type & Screen, Consent - Lasix in between transfusions 3.) Chronic Systolic/Diastolic CHF - C/W Coreg, Lasix - Add Teofilo/Arb as per Cardio 4.) DM - FS - RAISS 5.) HLD - C/W Statin 6.) Morbid Obesity 7.) Dvt Ppx - SCDS Place in Obs
--- NOTE | 2017-11-01 19:21 | HP ---
CHIEF COMPLAINT: nose bleed PCP: Dr. Lindsay ENT: Dr. Oh Cardiology: Dr. Mcdaniel HISTORY OF PRESENT ILLNESS: 82yo obese man with PMH of Afib (on Xarelto), chronic systolic/diastolic HF s/p AICD, NIDDM, HLD, thoracic aortic aneurysm, and recurrent epistaxis requiring packing and multiple transfusions who presents with L nare bleeding despite anterior RhinoRocket placement. This is his third presentation for epistaxis within 1 week. On 10/27, he presented with ~1 hour of active bleeding in L nare after picking at a scab; anterior RhinoRocket was placed by ENT, he received 2U x PRBCs, and discharged 10/28 on Keflex with f/u appointment with Dr. Oh on 11/02. On 10/29 patient presented to ED with bleeding via L RhinoRocket, which was deflated and reinflated to achieve hemostasis. This afternoon (11/01), L RhinoRocket fell out and within a few hours L nare started to bleed. Patient's is at bedside who reports that Dr. Lindsay had suggested patient take Xarelto Q2D due to recurrent epistaxis. The patient last took Xarelto on Monday 10/30. He did not take any of his home medications today except for AM dose of Keflex. In ED, Dr. Oh was consulted. He placed anterior RhinoRocket, which achieved hemostasis. Vital signs were stable (T 98.3, HR 78, 118/65, RR 18, 97% RA). Labs notable for Hgb 6.6 (prior on 10/29 8.0). Patient received 1x dose Augmentin in ED. Recent Travel: none PAST MEDICAL HISTORY: see HPI CHF: 2D ECHO (10/15/17): LVEF 40-45%, lv fxn mildly reduced, rv moderately dilated, aicd in place, dilated IVC, rv fxn moderately reduced. PAST SURGICAL HISTORY: R hip replacement L ankle fracture repair AICD Social History: lives with ; ambulates with cane at baseline Smoking: never Alcohol: social Drugs: denies Family History: non-contributory Allergies: NKDA HOME MEDICATIONS: Home Medications Medication Instructions Recorded Atorvastatin Ca [Lipitor] 10 mg PO HS 10/15/17 Carvedilol [Coreg -] 25 mg PO BID 10/15/17 Digoxin [Lanoxin -] 0.125 mg PO DAILY 10/15/17 Rivaroxaban [Xarelto -] 20 mg PO ASDIR 10/15/17 Sitagliptin Phosphate [Januvia] 100 mg PO DAILY 10/15/17 Furosemide [Lasix -] 80 mg PO DAILY #60 tablet 10/18/17 Glyburide 5 mg PO HS #30 tablet 10/18/17 Glyburide 10 mg PO DAILY #60 tablet 10/18/17 Pantoprazole Sodium [Protonix] 40 mg PO DAILY #4 tablet. 10/20/17 Cephalexin [Keflex] 500 mg PO BID #10 capsule 10/28/17 REVIEW OF SYSTEMS CONSTITUTIONAL: Absent: fever, chills, diaphoresis, generalized weakness, malaise, loss of appetite, weight change HEENT: Absent: rhinorrhea, nasal congestion, throat pain, throat swelling, difficulty swallowing, mouth swelling, ear pain, eye pain, visual changes CARDIOVASCULAR: +lightheadedness Absent: chest pain, syncope, palpitations, irregular heart rate, peripheral edema RESPIRATORY: Absent: cough, shortness of breath, dyspnea with exertion, orthopnea, wheezing, stridor, hemoptysis GASTROINTESTINAL: Absent: abdominal pain, abdominal distension, nausea, vomiting, diarrhea, constipation, melena, hematochezia GENITOURINARY: Absent: dysuria, frequency, urgency, hesitancy, hematuria, flank pain, genital pain MUSCULOSKELETAL: Absent: myalgia, arthralgia, joint swelling, back pain, neck pain SKIN: Absent: rash, itching, pallor HEMATOLOGIC/IMMUNOLOGIC: +easy bleeding Absent: easy bruising, lymphadenopathy, frequent infections ENDOCRINE: Absent: unexplained weight gain, unexplained weight loss, heat intolerance, cold intolerance NEUROLOGIC: Absent: headache, focal weakness or paresthesias, dizziness, unsteady gait, seizure, mental status changes, bladder or bowel incontinence PSYCHIATRIC: Absent: anxiety, depression, suicidal or homicidal ideation, hallucinations. PHYSICAL EXAMINATION Vital Signs - 24 hr 11/01/17 11/01/17 15:20 19:09 Temperature 98.3 F 97.9 F Pulse Rate 85 Pulse Rate [ 83 Right Radial] Respiratory 18 18 Rate Blood Pressure 102/76 Blood Pressure 109/74 [Left Arm] O2 Sat by Pulse 98 96 Oximetry (%) GENERAL: aaox3, nad, speaking in full sentences HEENT: L nare with RhinoRocket, no e/o active bleeding, sclera anicteric, conjunctiva clear LUNGS: CTAB Abdomen: obese, soft, NTND Heart: rrr, normal s1/s2, no m/r/g UPPER EXTREMITIES: 2+ radial pulses, wwp, no peripheral edema LOWER EXTREMITIES: wwp, b/l edema, chronic venous changes CBC, BMP 11/01/17 17:35 11/01/17 17:35 INR, PTT INR 1.65 (0.82-1.09) H D 11/01/17 17:35 Active Medications Amoxicillin/Clavulanate Potassium (Augmentin - 875mg Tablet) 1 tab PO BID@0800, 1730 [facility] Atorvastatin Calcium (Lipitor -) 10 mg PO HS [facility] Carvedilol (Coreg -) 25 mg PO BID [facility] Digoxin (Lanoxin -) 0.125 mg PO DAILY [facility] Furosemide (Lasix -) 80 mg PO DAILY [facility] Insulin Aspart (Novolog Vial Sliding Scale -) 1 vial SQ ACHS [facility] PRN Reason: Protocol Pantoprazole Sodium (Protonix -) 40 mg PO DAILY [facility] ASSESSMENT/PLAN: 82yo obese man with PMH of HTN, chronic/systolic heart failure s/p AICD, Afib ( on Xarelto), NIDDM, HLD, thoracic aortic aneurysm, and recurrent epistaxis who presents to ED again with L nare epistaxis and found to have hemoglobin 6.6. #acute blood loss anemia 2/2 Epistaxis (Hgb 6.6) -Transfuse 2U PRBCs (lasix 40mg IVP to be given between units) -Repeat CBC in AM, transfuse to maintain Hgb >8 -Anterior RhinoRocket in place - keep until ENT f/u appt (wants to see pt in office on Sunday 11/05) -Continue with Augmentin 875mg BID -> next dose for 11/02 @ 8AM -Dr. Mcdaniel consulted: RE continuing on Xarelto due repeat epistaxis #Afib -c/w home coreg 25mg BID and Digoxin 0.125mg qd -Hold Xarelto #chronic systolic/diastolic heart failure, stable, no e/o volume overload -will give 40mg IVP between transfusion (missed lasix 80mg PO today) -c/w home Coreg 25mg BID and lasix 80mg PO #HTN - c/w coreg, lasix #Hyperlipidemia - c/w home Lipitor #NIDDM -hold home meds -BGM/ISS ACHSype 2 DM #DISPO: observation FULL code d/w Dr. Krystin Gonzalez MD PGY1 - Night Assistant Sales Director Visit type - Emergency Visit Emergency Visit: Yes ED Registration Date: 11/01/17 Care time: The patient presented to the Emergency Department on the above date and was hospitalized for further evaluation of their emergent condition. - New Patient This patient is new to me today: Yes Date on this admission: 11/01/17 - Critical Care Critical Care patient: No Hospitalist Screening - Colonoscopy Questionnaire Colonoscopy Questionnaire: Colonoscopy Questionnaire - Patient: 50 - 75 years old and never had a screening colonoscopy: No History of colon or rectal polyps, or CA: Unknown History of IBD, Crohn's disease or UC: Unknown History of abdominal radiation therapy as a child: Unknown - Relative: 1 with colon or rectal CA, or polyps at age 60 or younger: Unknown Colon or rectal CA diagnosed at age 45 or younger: Unknown Multiple relatives with colon or rectal CA: Unknown - Outcome: Screening Result: Negative Screen
[2017-11-01] MEDS ORDERED: FUROSEMIDE 40 MG/4 ML INJECTABLE VIAL IVPUSH ONE ×2 (20:04→22:45)
[2017-11-01] MEDS ORDERED: ATORVASTATIN CA 10 MG TABLET (FP) PO SCH (22:00)
[2017-11-01] MEDS: CARVEDILOL 25 MG TABLET (FP) PO SCH (22:33)
[2017-11-01] MEDS: INSULIN SLIDING SCALE (NOVOLOG) 1 VIAL SQ SCH (22:46)
[2017-11-02 01:32] VITALS: BMI 42.0
[2017-11-02] MEDS: INSULIN SLIDING SCALE (NOVOLOG) 1 VIAL SQ SCH ×3 (06:07→17:23)
[2017-11-02] MEDS ORDERED: INSULIN (NOVOLOG) ASPART 100 UNITS/ML 10ML VIAL ONE ×2 (06:53→11:02)
[2017-11-02 07:28] LABS: HEMATOCRIT 20.4 % (35.4-49); MCH 29.6 pg (25.7-33.7); MCHC 34.6 g/dl (32.0-35.9); MEAN CELL VOLUME 85.5 fl (80-96); MEAN PLT VOLUME 8.7 fl (7.5-11.1); PLATELET COUNT 164 K/MM3 (134-434); RBC 2.38 M/mm3 (4.00-5.60); RDW 16.4 % (11.9-15.9); WHITE BLOOD COUNT 9.5 K/mm3 (4.0-10.0)
[2017-11-02 07:34] LABS: INR 1.5 (0.82-1.09); PROTHROMBIN TIME (PATIENT) 16.9 SEC (9.7-13.0)
[2017-11-02 07:57] LABS: CHLORIDE 105 mmol/L (98-107); POTASSIUM 4.1 mmol/L (3.5-5.1); SODIUM 139 mmol/L (136-145)
[2017-11-02 08:08] LABS: ANION GAP 6 (8-16); BLOOD UREA NITROGEN 34 mg/dL (7-18); CALCIUM 7.8 mg/dL (8.5-10.1); CO2 28 mmol/L (21-32); GLUCOSE,RANDOM 108 mg/dL (74-106)
[2017-11-02] MEDS ORDERED: DIGOXIN 0.125 MG TABLET (FP) PO SCH (10:00)
[2017-11-02] MEDS ORDERED: PANTOPRAZOLE 40 MG TABLET (FP) PO SCH (10:00)
[2017-11-02] MEDS ORDERED: FUROSEMIDE 40 MG TABLET (FP) PO SCH (10:00)
[2017-11-02] MEDS: AMOX TR/POT CLAV 875MG/125MG TABLETS (FP) PO SCH ×2 (10:04→18:39)
[2017-11-02] MEDS: CARVEDILOL 25 MG TABLET (FP) PO SCH (10:04)
--- NOTE | 2017-11-02 12:53 | CON.CARD ---
Cardiology Consult (text) - Consultation Consultation Note: cc: nose bleed hpi: 82 m hx syst chf (bi-v failure, NICM), icd, afib, htn, hld, dm, here with recurrent nose bleed. Multiple recent admits for recurrent epistaxis on xarelto in setting of nose bleeds. Per ENT notes, failed attempt at cauterization last week. This time had recurrent nose bleed when nasal packing fell out. chronic le edema stable/improved. No cp, sob, palps, dizzy, loc, pnd, orthopnea. Sees dr davis for cardio. pmh: per hpi psh: icd social: no tob fam: no premature cad, scd ros: per hpi; no nvd, fcs, cough, congestion, sahu, vision changes, dysuria meds: Ambulatory Orders Atorvastatin Ca [Lipitor] 10 mg PO HS 10/15/17 Carvedilol [Coreg -] 25 mg PO BID 10/15/17 Digoxin [Lanoxin -] 0.125 mg PO DAILY 10/15/17 Rivaroxaban [Xarelto -] 20 mg PO ASDIR 10/15/17 Sitagliptin Phosphate [Januvia] 100 mg PO DAILY 10/15/17 Furosemide [Lasix -] 80 mg PO DAILY #60 tablet 10/18/17 Glyburide 5 mg PO HS #30 tablet 10/18/17 Glyburide 10 mg PO DAILY #60 tablet 10/18/17 Pantoprazole Sodium [Protonix] 40 mg PO DAILY #4 tablet. 10/20/17 Cephalexin [Keflex] 500 mg PO BID #10 capsule 10/28/17 Current Medications Amoxicillin/Clavulanate Potassium (Augmentin - 875mg Tablet) 1 tab PO BID@0800, 1730 [facility] Last Admin: 11/02/17 10:04 Dose: 1 tab Atorvastatin Calcium (Lipitor -) 10 mg PO HS [facility] Last Admin: 11/01/17 22:33 Dose: 10 mg Carvedilol (Coreg -) 25 mg PO BID [facility] Last Admin: 11/02/17 10:04 Dose: 25 mg Digoxin (Lanoxin -) 0.125 mg PO DAILY [facility] Last Admin: 11/02/17 10:05 Dose: 0.125 mg Furosemide (Lasix -) 80 mg PO DAILY [facility] Last Admin: 11/02/17 10:05 Dose: 80 mg Insulin Aspart (Novolog Vial Sliding Scale -) 1 vial SQ ACHS [facility] PRN Reason: Protocol Last Admin: 11/02/17 11:03 Dose: 2 unit Pantoprazole Sodium (Protonix -) 40 mg PO DAILY [facility] Last Admin: 11/02/17 10:04 Dose: 40 mg pe: Vital Signs - 24 hr 11/01/17 11/01/17 11/01/17 15:20 19:09 19:53 Temperature 98.3 F 98.4 F Pulse Rate 85 85 Pulse Rate [ 83 Right Radial] Respiratory 18 20 Rate Blood Pressure 102/76 101/66 Blood Pressure 109/74 [Left Arm] O2 Sat by Pulse 98 96 98 Oximetry (%) 11/01/17 11/02/17 11/02/17 20:01 00:01 04:00 Temperature 98.1 F 97.5 F L 98 F Pulse Rate 84 79 73 Pulse Rate [ Right Radial] Respiratory 20 20 20 Rate Blood Pressure 107/56 91/51 120/53 Blood Pressure [Left Arm] O2 Sat by Pulse Oximetry (%) 11/02/17 11/02/17 11/02/17 04:01 06:20 10:00 Temperature 98.1 F 98 F Pulse Rate 77 75 Pulse Rate [ Right Radial] Respiratory 20 20 18 Rate Blood Pressure 101/55 125/73 Blood Pressure [Left Arm] O2 Sat by Pulse 98 Oximetry (%) 11/02/17 11/02/17 11/02/17 10:05 12:00 12:10 Temperature 97.5 F L Pulse Rate 80 71 Pulse Rate [ Right Radial] Respiratory 18 18 Rate Blood Pressure 110/57 Blood Pressure [Left Arm] O2 Sat by Pulse 98 Oximetry (%) Intake & Output 10/31/17 11/01/17 11/02/17 11/03/17 07:59 07:59 07:59 07:59 Intake Total 900 Output Total 2300 Balance -1400 Weight 298 lb 11.2 oz nad calm jvd tds, neck suple irreg, s1s2 no mrg trace bibasilar rales, nl eff no jaundice diaphoresis pos dp pt trace LE edema bl no c/c abd nt nd pos bs aaox3 CBC, BMP 11/02/17 06:00 11/02/17 06:00 Laboratory Tests 10/16/17 11/01/17 06:00 17:35 Hgb 6.6 L* D Total Bilirubin AST ALT Alkaline Phosphatase Albumin Digoxin 0.6362 L 11/01/17 17:35 Hgb Total Bilirubin 1.1 H AST 19 ALT 16 Alkaline Phosphatase 177 H Albumin 2.9 L Digoxin Echo 09/2017: LVEF mildly reduced, 40-45%. RV mod dilated/mod hypo. L/MARLYS. valves WNL. dilated IVC A/P 82 m hx syst chf (bi-v failure, NICM), icd, afib, htn, hld, dm, here with recurrent nose bleed. afib/recurrent epistaxis: -h/o prior inappropr ICD shocks for rapid AF--none in long time on home dig, carvedilol regimen -rate control good here on outpatient regimen. routine dig level monitoring. -recurrent epistaxis in setting of nose-picking. getting transfused with prbc' s. ENT following, recent failed attempt at cauterization last week. Per ENT notes, has plan for follow up as outpatient for removal of nasal packing and possible consideration for another attempt at cautery. Discussed with patient' s outpatient cardiology --> Preference is to continue xarelto, will initiate a temporary trial of xarelto at 15 mg dose (decreased from 20 mg) until ENT follow up. Monitor for recurrence. chronic mixed syst/diast chf: -pt with sev decr EF 2012 likely due to med non-compliance with rapid afib as outpt -had primary prev ICD placed, follows closely with gitig as outpt -EF has recovered to near-normal with good HR control, as of recent last office echo --> EF on recent admit now mildly reduced, but Enalapril stopped b/c of concern for episode of angioedema. Has been on long-standing enalapril as outpatient. In light of recent drop in EF, would consider discussion with ENT to confirm angioedema related to enalapril. If cannot take enalapril, will need to substitute. -cont home lasix, coreg, dig. 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 - has had subsequent episodes of VT detected on interrogations, none recently. Con't routine outpatient monitoring. venous ins'y/cellulitis -followed by wound center at as outpt, per patient LE edema stable. - con't po lasix. thoracic aorta aneurysm (5.0 cm): -has been stable in size (non-surgical) including recent CT monitoring as outpt -BP control as doing, BB on board htn: -cont current meds hld: -cont statin
--- NOTE | 2017-11-02 15:34 | PN ---
Teaching Attending Note Name of Resident: Audrey Unger ATTENDING PHYSICIAN STATEMENT I saw and evaluated the patient. I reviewed the resident's note and discussed the case with the resident. I agree with the resident's findings and plan as documented with exceptions below. SUBJECTIVE: patient seen and examined, no further nose bleed, no new concerns. OBJECTIVE: Vital Signs Period Temp Pulse Resp BP Sys/Lambert Pulse Ox Last 24 Hr 97.4 F-98.4 F 67-85 18-20 91-125/51-74 96-98 Intake & Output 10/30/17 10/31/17 11/01/17 11/02/17 23:59 23:59 23:59 23:59 Intake Total 550 350 Output Total 300 2000 Balance 250 -1650 Weight 301 lb 298 lb 11.2 oz General: sitting in bed in no acute distress HEENT: left nasal rhinorocket with dried blood, no active bleed Home Medication List Medication Instructions Recorded Confirmed Type Atorvastatin Ca [Lipitor] 10 mg PO HS 10/15/17 11/01/17 History Carvedilol [Coreg -] 25 mg PO BID 10/15/17 11/01/17 History Digoxin [Lanoxin -] 0.125 mg PO DAILY 10/15/17 11/01/17 History Rivaroxaban [Xarelto -] 20 mg PO ASDIR 10/15/17 11/01/17 History Sitagliptin Phosphate [Januvia] 100 mg PO DAILY 10/15/17 11/01/17 History Active Medications Generic Name Dose Route Start Last Admin Trade Name Freq PRN Reason Stop Dose Admin Amoxicillin/Clavulanate Potassium 1 tab 11/02/17 08:00 11/02/17 10:04 Augmentin - 875mg Tablet PO 1 tab BID@0800,1730 [facility] Administration Atorvastatin Calcium 10 mg 11/01/17 22:00 11/01/17 22:33 Lipitor - PO 10 mg HS [facility] Administration Carvedilol 25 mg 11/01/17 22:00 11/02/17 10:04 Coreg - PO 25 mg BID [facility] Administration Digoxin 0.125 mg 11/02/17 10:00 11/02/17 10:05 Lanoxin - PO 0.125 mg DAILY [facility] Administration Furosemide 80 mg 11/02/17 10:00 11/02/17 10:05 Lasix - PO 80 mg DAILY [facility] Administration Insulin Aspart 1 vial 11/01/17 22:00 11/02/17 11:03 Novolog Vial Sliding Scale - SQ 2 unit ACHS [facility] Administration Protocol Pantoprazole Sodium 40 mg 11/02/17 10:00 11/02/17 10:04 Protonix - PO 40 mg DAILY [facility] Administration Laboratory Results - last 24 hr 11/01/17 11/01/17 11/01/17 17:35 17:35 17:35 WBC 11.5 H RBC 2.31 L Hgb 6.6 L* D Hct 20.0 L D MCV 86.8 MCH 28.6 MCHC 33.0 RDW 17.1 H Plt Count 271 D MPV 10.2 Neutrophils % 76.0 Lymphocytes % 10.5 Monocytes % 11.1 H Eosinophils % 1.9 Basophils % 0.5 PT with INR 18.70 H INR 1.65 H D PTT (Actin FS) Sodium 138 Potassium 4.9 Chloride 105 Carbon Dioxide 27 Anion Gap 6 L BUN 34 H Creatinine 1.1 D Creat Clearance w eGFR > 60 POC Glucometer Random Glucose 120 H D Calcium 7.7 L Total Bilirubin 1.1 H AST 19 ALT 16 Alkaline Phosphatase 177 H Total Protein 5.9 L Albumin 2.9 L Blood Type Antibody Screen Crossmatch 11/01/17 11/01/17 11/01/17 17:35 17:35 21:26 WBC RBC Hgb Hct MCV MCH MCHC RDW Plt Count MPV Neutrophils % Lymphocytes % Monocytes % Eosinophils % Basophils % PT with INR INR PTT (Actin FS) 29.6 Sodium Potassium Chloride Carbon Dioxide Anion Gap BUN Creatinine Creat Clearance w eGFR POC Glucometer 202 Random Glucose Calcium Total Bilirubin AST ALT Alkaline Phosphatase Total Protein Albumin Blood Type A POSITIVE Antibody Screen Negative Crossmatch See Detail 11/02/17 11/02/17 11/02/17 06:00 06:00 06:00 WBC 9.5 RBC 2.38 L Hgb 7.0 L Hct 20.4 L MCV 85.5 MCH 29.6 MCHC 34.6 RDW 16.4 H Plt Count 164 D MPV 8.7 D Neutrophils % Lymphocytes % Monocytes % Eosinophils % Basophils % PT with INR 16.90 H INR 1.50 H PTT (Actin FS) Sodium 139 Potassium 4.1 Chloride 105 Carbon Dioxide 28 Anion Gap 6 L BUN 34 H Creatinine 1.0 Creat Clearance w eGFR POC Glucometer Random Glucose 108 H Calcium 7.8 L Total Bilirubin AST ALT Alkaline Phosphatase Total Protein Albumin Blood Type Antibody Screen Crossmatch 11/02/17 06:06 WBC RBC Hgb Hct MCV MCH MCHC RDW Plt Count MPV Neutrophils % Lymphocytes % Monocytes % Eosinophils % Basophils % PT with INR INR PTT (Actin FS) Sodium Potassium Chloride Carbon Dioxide Anion Gap BUN Creatinine Creat Clearance w eGFR POC Glucometer 115 Random Glucose Calcium Total Bilirubin AST ALT Alkaline Phosphatase Total Protein Albumin Blood Type Antibody Screen Crossmatch ASSESSMENT AND PLAN: 82 yom with PMHx of Afib (on Xarelto), chronic systolic/diastolic HF s/p AICD, NIDDM, HLD, thoracic aortic aneurysm, and recurrent epistaxis requiring packing and multiple transfusions, admitted with recurrent epistaxis s/p rhinorocket placement in ED by ENT. -Recurrent epistaxis s/p rhinorocket placement by ENT in ED -Acute blood loss anemia from above -Afib on Xarelto -Chronic systolic/diastolic HF s/p AICD, not in exacerbation -NIDDM -HLD -Thoracic aortic aneurysm Plan: ENT input noted, follow up on . Augmentin antibiotic prophylaxis. Transfuse 1 more unit PRBC, Follow up with Cardiology if can d/c or decrease dose of xarelto. Continue home meds. D/c home today after PRBC pending cardiology input. Plan discussed with patient in detail, all questions answered.
--- NOTE | 2017-11-02 15:48 | PN ---
Physical Exam: SUBJECTIVE: Patient seen and examined. Has had no nasal bleeding since the rhinorocket was put in overnight. No dypsnea, chest pain, hematemesis, or hematochezia. No new c/o. Off anticoagulation. OBJECTIVE: Vital Signs Period Temp Pulse Resp BP Sys/Lambert Pulse Ox Last 24 Hr 97.4 F-98.4 F 67-85 18-20 91-125/51-74 96-98 Vital Signs Temp 97.4 F L 11/02/17 14:54 Pulse 67 11/02/17 14:54 Resp 18 11/02/17 14:54 BP 109/58 11/02/17 14:54 Pulse Ox 98 11/02/17 12:00 Intake & Output 11/01/17 11/02/17 11/02/17 23:59 11:59 23:59 Intake Total 550 350 350 Output Total 300 2000 Balance 250 -1650 350 Weight 136.531 kg 135.488 kg Intake: Oral 200 Packed Cells 350 350 350 Output: Urine 300 2000 Void 300 2000 Other: Voiding Method Urinal Toilet Toilet # Unmeasured Voids Void 1 Bowel Movement No Height 1.8 m Body Mass Index (BMI) 42.0 Weight Measurement Method Chair Scale Chair Scale GENERAL: The patient is awake, alert, and fully oriented, in no acute respiratory distress. HEAD: Normal with no signs of trauma. EYES: PERRL, extraocular movements intact, sclera anicteric, ENT: Rhinorocket in L nostril. Dried blood in L nostril and around the R NECK: supple. LUNGS: Breath sounds equal, clear to auscultation bilaterally HEART: Regular rate and rhythm, S1, S2 ABDOMEN: Soft, nontender, nondistended, normoactive bowel sounds, EXTREMITIES: 2+ pulses, warm, well-perfused, no edema. NEUROLOGICAL: AAO x3. Normal speech, gait not observed. Laboratory Results - last 24 hr 11/01/17 11/01/17 11/01/17 17:35 17:35 17:35 WBC 11.5 H RBC 2.31 L Hgb 6.6 L* D Hct 20.0 L D MCV 86.8 MCH 28.6 MCHC 33.0 RDW 17.1 H Plt Count 271 D MPV 10.2 Neutrophils % 76.0 Lymphocytes % 10.5 Monocytes % 11.1 H Eosinophils % 1.9 Basophils % 0.5 PT with INR 18.70 H INR 1.65 H D PTT (Actin FS) Sodium 138 Potassium 4.9 Chloride 105 Carbon Dioxide 27 Anion Gap 6 L BUN 34 H Creatinine 1.1 D Creat Clearance w eGFR > 60 POC Glucometer Random Glucose 120 H D Calcium 7.7 L Total Bilirubin 1.1 H AST 19 ALT 16 Alkaline Phosphatase 177 H Total Protein 5.9 L Albumin 2.9 L Blood Type Antibody Screen Crossmatch 11/01/17 11/01/17 11/01/17 17:35 17:35 21:26 WBC RBC Hgb Hct MCV MCH MCHC RDW Plt Count MPV Neutrophils % Lymphocytes % Monocytes % Eosinophils % Basophils % PT with INR INR PTT (Actin FS) 29.6 Sodium Potassium Chloride Carbon Dioxide Anion Gap BUN Creatinine Creat Clearance w eGFR POC Glucometer 202 Random Glucose Calcium Total Bilirubin AST ALT Alkaline Phosphatase Total Protein Albumin Blood Type A POSITIVE Antibody Screen Negative Crossmatch See Detail 11/02/17 11/02/17 11/02/17 06:00 06:00 06:00 WBC 9.5 RBC 2.38 L Hgb 7.0 L Hct 20.4 L MCV 85.5 MCH 29.6 MCHC 34.6 RDW 16.4 H Plt Count 164 D MPV 8.7 D Neutrophils % Lymphocytes % Monocytes % Eosinophils % Basophils % PT with INR 16.90 H INR 1.50 H PTT (Actin FS) Sodium 139 Potassium 4.1 Chloride 105 Carbon Dioxide 28 Anion Gap 6 L BUN 34 H Creatinine 1.0 Creat Clearance w eGFR POC Glucometer Random Glucose 108 H Calcium 7.8 L Total Bilirubin AST ALT Alkaline Phosphatase Total Protein Albumin Blood Type Antibody Screen Crossmatch 11/02/17 06:06 WBC RBC Hgb Hct MCV MCH MCHC RDW Plt Count MPV Neutrophils % Lymphocytes % Monocytes % Eosinophils % Basophils % PT with INR INR PTT (Actin FS) Sodium Potassium Chloride Carbon Dioxide Anion Gap BUN Creatinine Creat Clearance w eGFR POC Glucometer 115 Random Glucose Calcium Total Bilirubin AST ALT Alkaline Phosphatase Total Protein Albumin Blood Type Antibody Screen Crossmatch Active Medications Generic Name Dose Route Start Last Admin Trade Name Freq PRN Reason Stop Dose Admin Amoxicillin/Clavulanate Potassium 1 tab 11/02/17 08:00 11/02/17 10:04 Augmentin - 875mg Tablet PO 1 tab BID@0800,1730 USHA Administration Atorvastatin Calcium 10 mg 11/01/17 22:00 11/01/17 22:33 Lipitor - PO 10 mg HS USHA Administration Carvedilol 25 mg 11/01/17 22:00 11/02/17 10:04 Coreg - PO 25 mg BID USHA Administration Digoxin 0.125 mg 11/02/17 10:00 11/02/17 10:05 Lanoxin - PO 0.125 mg DAILY USHA Administration Furosemide 80 mg 11/02/17 10:00 11/02/17 10:05 Lasix - PO 80 mg DAILY USHA Administration Insulin Aspart 1 vial 11/01/17 22:00 11/02/17 11:03 Novolog Vial Sliding Scale - SQ 2 unit ACHS USHA Administration Protocol Pantoprazole Sodium 40 mg 11/02/17 10:00 11/02/17 10:04 Protonix - PO 40 mg DAILY USHA Administration ASSESSMENT/PLAN: 82yo obese man with PMH of HTN, chronic/systolic heart failure s/p AICD, Afib ( on Xarelto), NIDDM, HLD, thoracic aortic aneurysm, and recurrent epistaxis who presents to ED again with L nare epistaxis and found to have hemoglobin 6.6. #acute blood loss anemia 2/2 Epistaxis (Hgb 6.6) -Received 1U PRBCs -to receive second unit today -repeat CBC 3.30pm -Anterior RhinoRocket in place - keep until ENT f/u appt (wants to see pt in office on Sunday 11/05) -Continue with Augmentin 875mg BID -> next dose for 11/02 -Dr. Mcdaniel consulted: Xarelto reduced to 15mg daily #Afib -c/w home coreg 25mg BID and Digoxin 0.125mg qd -Resume Xarelto 15mg at home #chronic systolic/diastolic heart failure, stable, no e/o volume overload -will give 40mg IVP between transfusion (missed lasix 80mg PO today) -c/w home Coreg 25mg BID and lasix 80mg PO #HTN - c/w coreg, lasix #Hyperlipidemia - c/w home Lipitor #NIDDM -hold home meds -BGM/ISS ACHSype 2 DM #FEN Oral fluids Diabetic diet Dispo: Pt was to have been discharged pending repeat CBC- 7.3 s/p 2U Will hold off discharge till tomorrow and repeat CBC to see if it improves with equibration of blood D/W ENT for follow up with rhinorocket in place as outpatient by Wednesday 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 - New Patient This patient is new to me today: Yes Date on this admission: 11/02/17 - Critical Care Critical Care patient: No - Discharge Referral Referred to [facility] Med P.C.: No
[2017-11-02 17:00] LABS: BASO % 0.3 % (0-2.0); EOS % 2.6 % (0-4.5); HEMATOCRIT 21.5 % (35.4-49); HEMOGLOBIN 7.3 GM/dL (11.7-16.9); LYMPH % 13.8 % (8-40); MCH 29.4 pg (25.7-33.7); MCHC 34.2 g/dl (32.0-35.9); MEAN CELL VOLUME 86.1 fl (80-96); MEAN PLT VOLUME 9.3 fl (7.5-11.1); MONO % 11.4 % (3.8-10.2); NEUT % 71.9 % (42.8-82.8); PLATELET COUNT 184 K/MM3 (134-434); RBC 2.49 M/mm3 (4.00-5.60); RDW 16.5 % (11.9-15.9)
[2017-11-02 18:43] VITALS: BP 120/63; PULSE 63; TEMP 98.1
--- NOTE | 2017-11-03 07:48 | PN ---
Progress Note (short form) - Note Progress Note: called kar Hensley 7:45 am Patient states he is doing good. No active bleed No dizziness or lightheadidness. I advised them to get repeat CBC today because even after getting 2 units of blood his Haemoglobin was 7.3 so just to make sure he is not loosing more blood. He has appointment with ENT for tomorrow. He will either go to his pcp for blood work or will come to ER for repeat cbc.
--- NOTE | 2017-11-03 14:21 | DS ---
Physical Exam: SUBJECTIVE: Patient seen and examined. Has had no nasal bleeding since the rhinorocket was put in overnight. No dypsnea, chest pain, hematemesis, or hematochezia. No new c /o. Off anticoagulation. OBJECTIVE: Vital Signs Period Temp Pulse Resp BP Sys/Lambert Pulse Ox Last 24 Hr 97.4 F-98.4 F 67-85 18-20 91-125/51-74 96-98 Vital Signs Temp 97.4 F L 11/02/17 14:54 Pulse 67 11/02/17 14:54 Resp 18 11/02/17 14:54 BP 109/58 11/02/17 14:54 Pulse Ox 98 11/02/17 12:00 Intake & Output 11/01/17 11/02/17 11/02/17 23:59 11:59 23:59 Intake Total 550 350 350 Output Total 300 2000 Balance 250 -1650 350 Weight 136.531 kg 135.488 kg Intake: Oral 200 Packed Cells 350 350 350 Output: Urine 300 2000 Void 300 2000 Other: Voiding Method Urinal Toilet Toilet # Unmeasured Voids Void 1 Bowel Movement No Height 1.8 m Body Mass Index (BMI) 42.0 Weight Measurement Method Chair Scale Chair Scale GENERAL: The patient is awake, alert, and fully oriented, in no acute respiratory distress. HEAD: Normal with no signs of trauma. EYES: PERRL, extraocular movements intact, sclera anicteric, ENT: Rhinorocket in L nostril. Dried blood in L nostril and around the R NECK: supple. LUNGS: Breath sounds equal, clear to auscultation bilaterally HEART: Regular rate and rhythm, S1, S2 ABDOMEN: Soft, nontender, nondistended, normoactive bowel sounds, EXTREMITIES: 2+ pulses, warm, well-perfused, no edema. NEUROLOGICAL: AAO x3. Normal speech, gait not observed. Laboratory Results - last 24 hr 11/01/17 11/01/17 11/01/17 17:35 17:35 17:35 WBC 11.5 H RBC 2.31 L Hgb 6.6 L* D Hct 20.0 L D MCV 86.8 MCH 28.6 MCHC 33.0 RDW 17.1 H Plt Count 271 D MPV 10.2 Neutrophils % 76.0 Lymphocytes % 10.5 Monocytes % 11.1 H Eosinophils % 1.9 Basophils % 0.5 PT with INR 18.70 H INR 1.65 H D PTT (Actin FS) Sodium 138 Potassium 4.9 Chloride 105 Carbon Dioxide 27 Anion Gap 6 L BUN 34 H Creatinine 1.1 D Creat Clearance w eGFR > 60 POC Glucometer Random Glucose 120 H D Calcium 7.7 L Total Bilirubin 1.1 H AST 19 ALT 16 Alkaline Phosphatase 177 H Total Protein 5.9 L Albumin 2.9 L Blood Type Antibody Screen Crossmatch 11/01/17 11/01/17 11/01/17 17:35 17:35 21:26 WBC RBC Hgb Hct MCV MCH MCHC RDW Plt Count MPV Neutrophils % Lymphocytes % Monocytes % Eosinophils % Basophils % PT with INR INR PTT (Actin FS) 29.6 Sodium Potassium Chloride Carbon Dioxide Anion Gap BUN Creatinine Creat Clearance w eGFR POC Glucometer 202 Random Glucose Calcium Total Bilirubin AST ALT Alkaline Phosphatase Total Protein Albumin Blood Type A POSITIVE Antibody Screen Negative Crossmatch See Detail 11/02/17 11/02/17 11/02/17 06:00 06:00 06:00 WBC 9.5 RBC 2.38 L Hgb 7.0 L Hct 20.4 L MCV 85.5 MCH 29.6 MCHC 34.6 RDW 16.4 H Plt Count 164 D MPV 8.7 D Neutrophils % Lymphocytes % Monocytes % Eosinophils % Basophils % PT with INR 16.90 H INR 1.50 H PTT (Actin FS) Sodium 139 Potassium 4.1 Chloride 105 Carbon Dioxide 28 Anion Gap 6 L BUN 34 H Creatinine 1.0 Creat Clearance w eGFR POC Glucometer Random Glucose 108 H Calcium 7.8 L Total Bilirubin AST ALT Alkaline Phosphatase Total Protein Albumin Blood Type Antibody Screen Crossmatch 11/02/17 06:06 WBC RBC Hgb Hct MCV MCH MCHC RDW Plt Count MPV Neutrophils % Lymphocytes % Monocytes % Eosinophils % Basophils % PT with INR INR PTT (Actin FS) Sodium Potassium Chloride Carbon Dioxide Anion Gap BUN Creatinine Creat Clearance w eGFR POC Glucometer 115 Random Glucose Calcium Total Bilirubin AST ALT Alkaline Phosphatase Total Protein Albumin Blood Type Antibody Screen Crossmatch Active Medications Generic Name Dose Route Start Last Admin Trade Name Freq PRN Reason Stop Dose Admin Amoxicillin/Clavulanate Potassium 1 tab 11/02/17 08:00 11/02/17 10:04 Augmentin - 875mg Tablet PO 1 tab BID@0800,1730 USHA Administration Atorvastatin Calcium 10 mg 11/01/17 22:00 11/01/17 22:33 Lipitor - PO 10 mg HS USHA Administration Carvedilol 25 mg 11/01/17 22:00 11/02/17 10:04 Coreg - PO 25 mg BID USHA Administration Digoxin 0.125 mg 11/02/17 10:00 11/02/17 10:05 Lanoxin - PO 0.125 mg DAILY USHA Administration Furosemide 80 mg 11/02/17 10:00 11/02/17 10:05 Lasix - PO 80 mg DAILY USHA Administration Insulin Aspart 1 vial 11/01/17 22:00 11/02/17 11:03 Novolog Vial Sliding Scale - SQ 2 unit ACHS USHA Administration Protocol Pantoprazole Sodium 40 mg 11/02/17 10:00 11/02/17 10:04 Protonix - PO 40 mg DAILY USHA Administration HOSPITAL COURSE: Date of Admission:11/01/17 Date of Discharge: 11/03/17 An 82yo obese man with PMHx of HTN, chronic/systolic heart failure s/p AICD, Afib (on Xarelto), NIDDM, HLD, thoracic aortic aneurysm, and recurrent epistaxis who presented to ED for the third time within one week, with L nare epistaxis, following deflation of a L intranasal rhinorocket. He was found to have hemoglobin of 6.6. The ENT surgeon-Dr Oh was consulted and placed a L anterior nares rhinorocket in the ED. After placement of the rhinorocket, epistaxis resolved in the ED and throughout his stay until discharge. Patient was admitted for observation overnight, and transfused 2 units of blood. Post transfusion complete blood count was 7.0, after the first unit,and 7.3. Patient was provided instructions to keep the rhinorocket in place until his next appointment with the ENT surgeon on 11/04/17. Since the patient had bled repeated and required blood transfusions, his Xarelto was stopped overnight, and following discussion with his command and control specialist was resumed at a lower dose-15mg daily. He was also counselled to follow up for repeat CBC with his PCP, ENT or [facility] lab. Patient was discharged home stable and free of bleeding. Minutes to complete discharge: 40 Discharge Summary Reason For Visit: RECURRENT EPISTAXIS Condition: Improved - Instructions Diet, Activity, Other Instructions: You came in for bleeding from your nostril The bleeding was controlled with a rhinorocket Your were found to have a low blood count of 6.6 in the Emergency room You received 2 units of blood while here You should keep the rhinorocket in place,to avoid a rebleed until you see you ENT surgeon on 11/04 Your blood thinner (xarelto) will be 15mg daily (changed by your command and control specialist's advice- Dr Mcdaniel) Please follow up with your command and control specialist within a week Please follow up in one week with your primary care physician Please continue Augmentin 875mg twice a day by mouth for the next 5 days Also continue your home medications: Lipitor 10mg by mouth daily Digoxin 0.125mg by mouth daily glyburide 10mg daily by mouth glyburide 5mg at night by mouth Januvia 100mg daily by mouth Protonix 40mg daily by mouth Coreg 25mg twice daily by mouth Please avoid nose picking, vigorous nose blowing and a dry environment If symptoms are worsening, please return to the emergency room Disposition: HOME - Home Medications Comprehensive Discharge Medication List: Ambulatory Orders Atorvastatin Ca [Lipitor] 10 mg PO HS 10/15/17 Carvedilol [Coreg -] 25 mg PO BID 10/15/17 Digoxin [Lanoxin -] 0.125 mg PO DAILY 10/15/17 Sitagliptin Phosphate [Januvia] 100 mg PO DAILY 10/15/17 Furosemide [Lasix -] 80 mg PO DAILY #60 tablet 10/18/17 Glyburide 5 mg PO HS #30 tablet 10/18/17 Glyburide 10 mg PO DAILY #60 tablet 10/18/17 Pantoprazole Sodium [Protonix] 40 mg PO DAILY #4 tablet. 10/20/17 Amox-Tr/K Cl [Augmentin 875-125mg Tablet -] 1 tab PO BID@0800,1730 5 Days #10 tablet 11/02/17 Rivaroxaban [Xarelto -] 15 mg PO DAILY #30 tab 11/02/17 This patient is new to me today: Yes Date on this admission: 11/03/17 Emergency Visit: Yes ED Registration Date: 11/01/17 Care time: The patient presented to the Emergency Department on the above date and was hospitalized for further evaluation of their emergent condition. Critical Care patient: No - Discharge Referral Referred to [facility] Med P.C.: No
== END 2017-11-02 19:07 | disposition home or self-care (01) ==
LOC: JER 15:20 → JERBED 19:09 → J7W 21:23
PROVIDERS: ADMIT Internal Medicine; ATTEND Hospitalist
PROC: 2Y41X5Z Packing of Nasal Region using Packing Material (ICD-10-PCS; principal; 2017-11-01)
PROC: 3E013VG Introduction of Insulin into Subcutaneous Tissue, Percutaneous Approach (ICD-10-PCS; 2017-11-01)
DX: R04.0 Epistaxis (principal); I10 Essential (primary) hypertension; I25.10 Atherosclerotic heart disease of native coronary artery without angina pectoris; I50.42 Chronic combined systolic (congestive) and diastolic (congestive) heart failure; I48.91 Unspecified atrial fibrillation; E11.9 Type 2 diabetes mellitus without complications; D62 Acute posthemorrhagic anemia; E78.5 Hyperlipidemia, unspecified; G47.30 Sleep apnea, unspecified; E66.01 Morbid (severe) obesity due to excess calories; Z79.01 Long term (current) use of anticoagulants; Z95.810 Presence of automatic (implantable) cardiac defibrillator; Z79.84 Long term (current) use of oral hypoglycemic drugs; Z68.41 Body mass index [BMI] 40.0-44.9, adult; I71.2 Thoracic aortic aneurysm, without rupture; L03.90 Cellulitis, unspecified
CPT/HCPCS: 30901-25; 36415; 36430; 80048; 80053; 82962; 85025; 85027; 85610; 85730; 86850; 86900; 86901; 86922; 96372; 99285-25; G0378; P9038; P9058

== ENCOUNTER 2017-11-23 11:34 | Inpatient (IN) | payer OTHER, BC ==
--- NOTE | 2017-11-23 11:53 | PDOC ---
Attending Attestation - Resident Resident Name: Kurtis Martinez - HPI HPI: 11/23/17 17:13 Pt presents to the ED complaining of syncope that occurred today while standing. Denies chest pain or shortness of breath, but does complain of persistent lightheadness. Patient has an an AICD which did not go off. 11/23/17 19:09 - Physicial Exam PE: 11/23/17 19:00 Agree with resident exam. Patient is alert and oriented x 3 and is in no acute distress. Lungs are clear. Heart has regular rate and rhythm. Abdomen is soft , non tender and non distended. 11/23/17 19:10 11/25/17 07:34 - Medical Decision Making 11/25/17 07:35 Pt presents to the ED after syncope. History of AICD placement. On interrogation of the AICD, patient had an episode of v fib that was successfully defibrilated. Will admit to medicine for syncope work up.
[2017-11-23 12:22] LABS: BASO % 0.7 % (0-2.0); EOS % 2.3 % (0-4.5); HEMATOCRIT 22.2 % (35.4-49); HEMOGLOBIN 7.1 GM/dL (11.7-16.9); MCH 25.6 pg (25.7-33.7); MEAN CELL VOLUME 79.8 fl (80-96); MONO % 12.8 % (3.8-10.2); NEUT % 75.2 % (42.8-82.8); PLATELET COUNT 197 K/MM3 (134-434); RBC 2.78 M/mm3 (4.00-5.60); RDW 19.5 % (11.9-15.9); WHITE BLOOD COUNT 8.8 K/mm3 (4.0-10.0)
[2017-11-23 12:38] LABS: INR 1.86 (0.82-1.09)
[2017-11-23 12:48] LABS: ALBUMIN 3.1 g/dl (3.4-5.0); ANION GAP 8 (8-16); BLOOD UREA NITROGEN 31 mg/dL (7-18); CALCIUM 7.8 mg/dL (8.5-10.1); CHLORIDE 102 mmol/L (98-107); CO2 27 mmol/L (21-32); GLUCOSE,RANDOM 224 mg/dL (74-106); MAGNESIUM 2.3 mg/dL (1.8-2.4); POTASSIUM 3.7 mmol/L (3.5-5.1); SODIUM 137 mmol/L (136-145)
[2017-11-23 12:53] LABS: URINE APPEARANCE CLEAR; URINE BILIRUBIN NEGATIVE (<2.0 mg/dL); URINE BLOOD 1+ (NEGATIVE); URINE COLOR STRAW; URINE GLUCOSE (UA) NEGATIVE (NEGATIVE); URINE KETONE NEGATIVE (NEGATIVE); URINE LEUK ESTERASE NEGATIVE (NEGATIVE); URINE NITRITE NEGATIVE (NEGATIVE); URINE PROTEIN NEGATIVE (NEGATIVE); URINE UROBILINOGEN NEGATIVE mg/dL (0.2-1.0)
[2017-11-23 12:56] LABS: ALK PHOS 213 U/L (45-117); BILIRUBIN,TOTAL 1.2 mg/dL (0.2-1.0); CREATININE 1.4 mg/dL (0.7-1.3); SGOT/AST 16 U/L (15-37); SGPT/ALT 14 U/L (12-78); TOT PROT 6.4 g/dl (6.4-8.2)
--- NOTE | 2017-11-23 13:14 | PDOC ---
History of Present Illness - General Chief Complaint: Syncope/Near Syncope Stated Complaint: Syncope/Near Syncope Time Seen by Provider: 11/23/17 11:53 History Source: Patient Exam Limitations: No Limitations - History of Present Illness Initial Comments: 11/23/17 13:13 Patient is an 82M with history of afib on xarelto, CHF, DM, thoracic aortic aneurysm, s/p defibrillator placement ([employer]) here today complaining syncope. Patient's son witnessed entire event and reports that patient fell to the ground from standing and was unconscious for about 30-45s without any seizure activity. Son also denies any post-ictal period. Patient rapidly returned to baseline. Neither son or patient is sure if the defibrillator went off. Patient endorses prodromal weakness. Denies fevers, chills, nausea, vomiting, chest pain. Does endorses leg edema and generalized weakness. Past History - Past Medical History Allergies/Adverse Reactions: Allergies Allergy/AdvReac Type Severity Reaction Status Date / Time No Known Drug Allergies Allergy Verified 10/29/17 18:41 Home Medications: Ambulatory Orders Atorvastatin Ca [Lipitor] 10 mg PO HS 10/15/17 Carvedilol [Coreg -] 25 mg PO BID 10/15/17 Digoxin [Lanoxin -] 0.125 mg PO DAILY 10/15/17 Sitagliptin Phosphate [Januvia] 100 mg PO DAILY 10/15/17 Furosemide [Lasix -] 80 mg PO DAILY #60 tablet 10/18/17 Glyburide 10 mg PO DAILY #60 tablet 10/18/17 Pantoprazole Sodium [Protonix] 40 mg PO DAILY #4 tablet. 10/20/17 Rivaroxaban [Xarelto -] 15 mg PO DAILY #30 tab 11/02/17 Anemia: No Asthma: No Cancer: No Cardiac Disorders: Yes (afib chf heart failure) CVA: No COPD: No CHF: Yes Dementia: No Diabetes: Yes GI Disorders: No Disorders: No HTN: Yes Hypercholesterolemia: Yes Liver Disease: No Seizures: No Thyroid Disease: No - Surgical History Abdominal Surgery: No Appendectomy: No Cardiac Surgery: Yes (pacemaker) Cholecystectomy: No Lung Surgery: No Neurologic Surgery: No Orthopedic Surgery: Yes - Immunization History Td Vaccination: Yes Immunization Up to Date: Yes - Suicide/Smoking/Psychosocial Hx Smoking Status: No Smoking History: Never smoked Years of Tobacco Use: 0 Have you smoked in the past 12 months: No Number of Cigarettes Smoked Daily: 0 Cigars Per Day: 0 Information on smoking cessation initiated: No Hx Alcohol Use: No Drug/Substance Use Hx: No Substance Use Type: None Hx Substance Use Treatment: No Review of Systems - Review of Systems Comments:: 11/23/17 13:23 GENERAL/CONSTITUTIONAL: No fever or chills. Positive for weakness. HEAD, EYES, EARS, NOSE AND THROAT: No change in vision. No sore throat. CARDIOVASCULAR: No chest pain or shortness of breath RESPIRATORY: No cough, wheezing, or hemoptysis. GASTROINTESTINAL: No nausea, vomiting, diarrhea or constipation. GENITOURINARY: No dysuria, frequency, or change in urination. MUSCULOSKELETAL: No joint or muscle swelling or pain. No neck or back pain. SKIN: No rash NEUROLOGIC: No headache, vertigo, loss of consciousness, or change in strength/ sensation. HEMATOLOGIC/LYMPHATIC: No anemia, easy bleeding, or history of blood clots. ALLERGIC/IMMUNOLOGIC: No hives or skin allergy. *Physical Exam - Vital Signs Last Vital Signs Temp Pulse Resp BP Pulse Ox 97.6 F 72 20 122/93 96 11/23/17 11:45 11/23/17 11:45 11/23/17 11:45 11/23/17 11:45 11/23/17 11:45 - Physical Exam Comments: 11/23/17 13:25 GENERAL: Awake, alert, and fully oriented, in no acute distress HEAD: No signs of trauma, normocephalic, atraumatic EYES: PERRLA, EOMI, sclera anicteric, conjunctiva clear ENT: Auricles normal inspection, hearing grossly normal, nares patent, oropharynx clear without exudates. Moist mucosa NECK: Normal ROM, supple, no lymphadenopathy, JVD, or masses, no midline tenderness LUNGS: No distress, speaks full sentences, diminished breath sounds bilaterally HEART: Regular rate and rhythm, normal S1 and S2, no murmurs, rubs or gallops, peripheral pulses normal and equal bilaterally. ABDOMEN: Soft, nontender, normoactive bowel sounds. No guarding, no rebound. No masses EXTREMITIES: Erythematous but not tender or warm, Normal range of motion, 3+ edema to groin. No clubbing or cyanosis. NEUROLOGICAL: Cranial nerves II through XII grossly intact. Normal speech, no focal sensorimotor deficits SKIN: Warm, Dry, normal turgor, no rashes or lesions noted. ED Treatment Course - LABORATORY CBC & Chemistry Diagram: 11/23/17 12:05 11/23/17 12:05 - ADDITIONAL ORDERS Additional order review: Laboratory Results 11/23/17 11/23/17 12:05 12:05 PT with INR 21.00 H INR 1.86 H Urine Color Straw Urine Appearance Clear Urine pH 7.0 Ur Specific [place] 1.006 Urine Protein Negative Urine Glucose (UA) Negative Urine Ketones Negative Urine Blood 1+ H Urine Nitrite Negative Urine Bilirubin Negative Urine Urobilinogen Negative Ur Leukocyte Esterase Negative Urine WBC (Auto) <1 Urine RBC (Auto) 2 11/23/17 12:05 RBC 2.78 L MCV 79.8 L MCHC 32.0 RDW 19.5 H MPV 8.0 D Neutrophils % 75.2 Lymphocytes % 9.0 D Monocytes % 12.8 H Eosinophils % 2.3 Basophils % 0.7 - RADIOLOGY Radiology Studies Ordered: Category Date Time Status HEAD CT WITHOUT CONTRAST [CT] Stat CT Scan 11/23/17 12:08 Ordered CHEST X-RAY PORTABLE* [RAD] Stat Radiology 11/23/17 12:08 Taken Medical Decision Making - Medical Decision Making 11/23/17 13:27 Patient is 82M with history of afib (on xarelto), CHF, DM, HLD thoracic aortic aneurysm here today with syncope. Vital signs stable. History concerning for cardiogenic cause of syncope. [employer] paged for defibrillation interrogation, will do 4-5pm. Dr Mcdaniel's patient. Will initiate cardiac workup with type and screen. EKG shows afib with PVCs with rate of 72. No st elevations/depression. Left axis deviation. RBBB pattern. Inverted t waves in V2/V3 and II, III, aVF. Stable when compared to ekg from 10/29/17. 11/23/17 13:55 Laboratory Tests 11/02/17 11/23/17 11/23/17 06:00 12:05 12:05 WBC 8.8 Hgb 7.1 L Plt Count 197 INR 1.86 H BUN Creatinine 1.0 Troponin I B-Natriuretic Peptide Urine Nitrite Ur Leukocyte Esterase Digoxin 11/23/17 11/23/17 11/23/17 12:05 12:05 12:05 WBC Hgb Plt Count INR BUN 31 H Creatinine 1.4 H D Troponin I 0.02 B-Natriuretic Peptide 1406.08 H Urine Nitrite Negative Ur Leukocyte Esterase Negative Digoxin 0.62 L CBC normal. INR elevated. Cr elevated, BUN/Cr in pre-renal pattern. BNP elevated. UA negative. Digoxin level low. 11/23/17 13:[address] negative. 11/23/17 13:57 CXR shows evidence of pulmonary vascular congestion, rotated, no clear infiltrate. 11/23/17 14:23 Dr Johnson accepted to tele via Dr Armstrong. *DC/Admit/Observation/Transfer Diagnosis at time of Disposition: Syncope - Discharge Dispostion Condition at time of disposition: Stable Decision to Admit order: Yes - Referrals - Patient Instructions - Post Discharge Activity
--- NOTE | 2017-11-23 14:40 | HP ---
Admitting History and Physical - Primary Care Physician PCP: Calos - Admission Chief Complaint: i passed out History of Present Illness: 82M PMH of afib on xarelto 15mg daily, CHF chronic diastolic/systolic s/p defibrillator placement (Medtronic), DM, thoracic aortic aneurysm, who presents after a syncopal event. History taken from patient and medical chart. Patient states he was leaving Dr. Mcdaniel's office (employment director) today with his son when he syncopized in the parking lot on the way to the car. He denies any preceding symptoms or an aura. He denies post-ictal symptoms. Patient only remembers waking up on the floor confused. Denies hitting his head or any pain. Per the son who spoke to the admitting actuarial intern the patient lost consciousness for 45 seconds. He currently denies symptoms. he denies nausea vomiting fevers chills chest pain or shortness of breath. Exercise tolerance is about 10-12 steps, before he has to stop for break, which has not changed. He endorses chronic lower extremity edema left worse Right. no loss of bowel or bladder function. oral intake has been good per patient. Pacemaker was just interrogated today per patient and "everything was just fine". he also reports the employment director increased his back up rate from 40 to 50. History Source: Patient, Medical Record Limitations to Obtaining History: Clinical Condition, Poor Historian - Past Medical History Cardiovascular: Yes: AFIB, CAD, CHF, Hyperlipdemia, Other (thoracic aortic aneurysm) Pulmonary: Yes: Sleep Apnea Gastrointestinal: Yes: Other (umbilical hernia) Endocrine: Yes: Diabetes Insipidus - Past Surgical History Past Surgical History: Yes: AICD, Hernia Repair, Joint Replacement Additional Past Surgical History: ankle surgery - Smoking History Smoking history: Never smoked Have you smoked in the past 12 months: No Aproximately how many cigarettes per day: 0 - Alcohol/Substance Use Hx Alcohol Use: No Home Medications - Allergies Allergies/Adverse Reactions: Allergies Allergy/AdvReac Type Severity Reaction Status Date / Time No Known Drug Allergies Allergy Verified 10/29/17 18:41 - Home Medications Home Medications: Ambulatory Orders Atorvastatin Ca [Lipitor] 10 mg PO HS 10/15/17 Carvedilol [Coreg -] 25 mg PO BID 10/15/17 Digoxin [Lanoxin -] 0.125 mg PO DAILY 10/15/17 Sitagliptin Phosphate [Januvia] 100 mg PO DAILY 10/15/17 Glyburide 10 mg PO DAILY #60 tablet 10/18/17 Pantoprazole Sodium [Protonix] 40 mg PO DAILY #4 tablet. 10/20/17 Rivaroxaban [Xarelto -] 15 mg PO DAILY #30 tab 11/02/17 Torsemide 100 mg PO DAILY 11/23/17 Review of Systems - Review of Systems Constitutional: reports: No Symptoms Eyes: reports: No Symptoms HENT: reports: No Symptoms Neck: reports: No Symptoms Cardiovascular: reports: Edema Respiratory: reports: Exercise Intolerance Gastrointestinal: reports: No Symptoms Genitourinary: reports: Frequency Integumentary: reports: Erythema (lower extremities chronic) Neurological: reports: Syncope Hematology/Lymphatic: reports: No Symptoms Physical Examination Vital Signs: Vital Signs Temperature 97.6 F 11/23/17 11:45 Pulse Rate 72 11/23/17 11:45 Respiratory Rate 20 11/23/17 11:45 Blood Pressure 122/93 11/23/17 11:45 O2 Sat by Pulse Oximetry (%) 96 11/23/17 11:45 Constitutional: Yes: Obese Eyes: Yes: Other (conjunctival pallor) HENT: Yes: Atraumatic Neck: Yes: Supple Cardiovascular: Yes: Pulse Irregular, S1, S2 Respiratory: Yes: Diminished, Other (distant but overall clear bilaterally) Gastrointestinal: Yes: Soft, Abdomen, Obese, Hernia Extremities: Yes: Erythema Edema: Yes Edema: LLE: 3+, RLE: 3+ Neurological: Yes: Alert Labs: CBC, BMP 11/23/17 12:05 11/23/17 12:05 Imaging - Results Chest X-ray: Report Reviewed, Image Reviewed Cat Scan: Report Reviewed, Image Reviewed Assessment/Plan 82M with multiple medical problems presents to the hospital s/p syncope. 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 fib DM thoracic aortic aneurysm HTN HLD Plan: Admit to telemetry cardiology consult medtronic to come interrogate Pacemaker restart home dose of xarelto hold torsemide for now transfuse 1 unit PRBC strict I/O diuretics per cardiology trend CBC low sodium/low fat/diabetic diet DVT/GI PPx PT consult to avoid deconditioning Full H&P to follow case discussed with attending and admitting actuarial intern Visit type - Emergency Visit Emergency Visit: Yes ED Registration Date: 11/23/17 Care time: The patient presented to the Emergency Department on the above date and was hospitalized for further evaluation of their emergent condition. - New Patient This patient is new to me today: Yes Date on this admission: 11/23/17 - Critical Care Critical Care patient: No
--- NOTE | 2017-11-23 15:59 | HP ---
UPDATE: Medtronic assessment of device shows few episodes of nonsustained VT with one episode of VFib with charge administered from AICD; Discussed with Dr. Mcdaniel CHIEF COMPLAINT: Syncope PCP: Dr. Lindsay ENT: Dr. Oh Cardiology: Dr. Mcdaniel HISTORY OF PRESENT ILLNESS: 82yo M with history of Afib (Xarelto), mixed systolic/diastolic CHF, NIDDM, HLD, recurrent epistaxis and thoracic aortic aneurysm who presents today with syncopal episode witness by son. Pt was at an appointment for his AICD/PPM interrogation which was reportedly normal when he was getting back into the car and suddenly syncopized while on passenger side. Pt's son reports the pt has a slight flexion of his arms, but no tonic-clonic movements. Pt's son also reports the pt losing consciousness for about 45 seconds and then regaining consciousness without any post-ictal mentation. Son denies any tongue-biting or incontinence with syncope. Per pt, he denies any symptoms up to syncopal event and currently denies any headaches, blurry vision, shortness of breath, CP/ discomfort, abdominal pain, extremity pain, back pain, dysuria, polyuria, diarrhea, and constipation. In addition, pt was recently changed from Lasix 80mg PO to Torsemide 100mg PO to manage his CHF and pt has been compliant with the medication change. Pt's son and report that the pt was told he had a "low blood count" 2 days ago at his primary physicians office where he received a FOBT which was negative. He was set to have iron studies and a possible iron IV infusion in the recent future, however couldn't make any appointments due to this hospitalization. In addition, pt has had his most recent echo on 10/15/17 which showed EF 40-45% with dilated RV. ER course was notable for: (1) Head CT - negative acute pathology (2) CXR - opacification LL angle (3) H/H - 7.1/22.2 (4) Digoxin lvl 0.62 (5) Cr 1.4 (baseline 1.0) PAST MEDICAL HISTORY: Afib (Xeralto) Mixed diastolic/systolic CHF NIDDM HLD Thoracic Aortic Aneurysm Recurrent Epistaxis PAST SURGICAL HISTORY: R hip replacement L ankle fracture repair AICD/PPM insertion Social History: Smoking: Never Alcohol: Occassional Drugs: None Lives with and ambulates with cane Allergies No Known Drug Allergies Allergy (Verified 10/29/17 18:41) HOME MEDICATIONS: Home Medications Medication Instructions Recorded Atorvastatin Ca [Lipitor] 10 mg PO HS 10/15/17 Carvedilol [Coreg -] 25 mg PO BID 10/15/17 Digoxin [Lanoxin -] 0.125 mg PO DAILY 10/15/17 Sitagliptin Phosphate [Januvia] 100 mg PO DAILY 10/15/17 Glyburide 10 mg PO DAILY #60 tablet 10/18/17 Pantoprazole Sodium [Protonix] 40 mg PO DAILY #4 tablet. 10/20/17 Rivaroxaban [Xarelto -] 15 mg PO DAILY #30 tab 11/02/17 Torsemide 100 mg PO DAILY 11/23/17 REVIEW OF SYSTEMS CONSTITUTIONAL: Absent: fever, chills, diaphoresis, generalized weakness, malaise, loss of appetite, weight change HEENT: Absent: rhinorrhea, nasal congestion, throat pain, throat swelling, difficulty swallowing, mouth swelling, ear pain, eye pain, visual changes CARDIOVASCULAR: Present: syncope, Absent: chest pain,palpitations, irregular heart rate, lightheadedness, peripheral edema RESPIRATORY: Absent: cough, shortness of breath, dyspnea with exertion, orthopnea, wheezing, stridor, hemoptysis GASTROINTESTINAL: Absent: abdominal pain, abdominal distension, nausea, vomiting, diarrhea, constipation, melena, hematochezia GENITOURINARY: Absent: dysuria, frequency, urgency, hesitancy, hematuria, flank pain, genital pain NEUROLOGIC: Absent: headache, focal weakness or paresthesias, dizziness, unsteady gait, seizure, mental status changes, bladder or bowel incontinence PHYSICAL EXAMINATION Vital Signs - 24 hr 11/23/17 11:45 Temperature 97.6 F Pulse Rate 72 Respiratory 20 Rate Blood Pressure 122/93 O2 Sat by Pulse 96 Oximetry (%) GENERAL: Awake, alert, and fully oriented, in no acute distress. HEENT: NC/AT, EOMI, ERIKA, moist mucosa, sclera anicteric, no plaques or erythema in posterior oropharynx Neck: No carotid bruits, no JVD LUNGS: CTA bilaterally. No wheezes, and no crackles. No accessory muscle use. HEART: RRR, normal S1 and S2 without murmur ABDOMEN: Soft, nontender, not distended, normoactive bowel sounds, no guarding, no rebound, no masses. No hepatomegaly or splenomegaly. MUSCULOSKELETAL: No bony deformities or tenderness. No CVA tenderness. EXTREMITIES: 2+ DP pulses, warm, well-perfused. No cyanosis. 3+ peripheral edema. Slight erythematous lower ext. with abrasion to L lateral lower ext. NEUROLOGICAL: ear machine operator II-XII intact. Strength grossly 5/5. Sensation grossly intact. Normal speech. PSYCHIATRIC: Cooperative. Good eye contact. Appropriate mood and affect. SKIN: Warm, dry, no rashes or lesions noted Laboratory Results - last 24 hr 11/23/17 11/23/17 11/23/17 12:05 12:05 12:05 WBC 8.8 RBC 2.78 L Hgb 7.1 L Hct 22.2 L MCV 79.8 L MCH 25.6 L D MCHC 32.0 RDW 19.5 H Plt Count 197 MPV 8.0 D Neutrophils % 75.2 Lymphocytes % 9.0 D Monocytes % 12.8 H Eosinophils % 2.3 Basophils % 0.7 Nucleated RBC % 0 PT with INR 21.00 H INR 1.86 H Sodium 137 Potassium 3.7 Chloride 102 Carbon Dioxide 27 Anion Gap 8 BUN 31 H Creatinine 1.4 H D Creat Clearance w eGFR 48.76 Random Glucose 224 H D Calcium 7.8 L Magnesium 2.3 Total Bilirubin 1.2 H AST 16 ALT 14 Alkaline Phosphatase 213 H D Creatine Kinase 43 Troponin I 0.02 B-Natriuretic Peptide Total Protein 6.4 Albumin 3.1 L Urine Color Urine Appearance Urine pH Ur Specific [place] Urine Protein Urine Glucose (UA) Urine Ketones Urine Blood Urine Nitrite Urine Bilirubin Urine Urobilinogen Ur Leukocyte Esterase Urine WBC (Auto) Urine RBC (Auto) Digoxin 0.62 L Blood Type Antibody Screen Crossmatch 11/23/17 11/23/17 11/23/17 12:05 12:05 12:05 WBC RBC Hgb Hct MCV MCH MCHC RDW Plt Count MPV Neutrophils % Lymphocytes % Monocytes % Eosinophils % Basophils % Nucleated RBC % PT with INR INR Sodium Potassium Chloride Carbon Dioxide Anion Gap BUN Creatinine Creat Clearance w eGFR Random Glucose Calcium Magnesium Total Bilirubin AST ALT Alkaline Phosphatase Creatine Kinase Troponin I B-Natriuretic Peptide 1406.08 H Total Protein Albumin Urine Color Straw Urine Appearance Clear Urine pH 7.0 Ur Specific [place] 1.006 Urine Protein Negative Urine Glucose (UA) Negative Urine Ketones Negative Urine Blood 1+ H Urine Nitrite Negative Urine Bilirubin Negative Urine Urobilinogen Negative Ur Leukocyte Esterase Negative Urine WBC (Auto) <1 Urine RBC (Auto) 2 Digoxin Blood Type A POSITIVE Antibody Screen Negative Crossmatch See Detail ASSESSMENT/PLAN: 1) Syncope --Likely mixed combination of change to Torsemide causing intravascular depletion alongside of anemia and warm weather --Head Ct negative --Not likely seizure activity --EKG unchanged from previous on November 02; continue telemetry monitoring --Carotid dopplers --most recent echocardiogram 10/15/17 revealing EF 40-45% with RV dilation; no need for another echocardiogram --Bacitracin to abrasion 2) Microcytic anemia --Previous history of iron deficiency (10.1 baseline) --No active signs of bleeding; FOBT 2 days ago negative --Transfuse 1 U PRBC --Iron studies for reassessment; iron infusion possibility 3) Congestive heart failure; mixed --Previous echo 10/15/17; see above --Dr. Mcdaniel consulted; appreciated recommendations for diuretic management --Will most likley require some diuresis post transfusion --Incline to give previous home dose of Lasix until cardiology recommendations are made --Strict I&Os --Daily weights 4) Acute kidney injury --Cr 1.4 w/o uremia --Most likely multifactorial with Torsemide and anemia --Expect to decline after 1U PRBC FEN: Fluids: Fluid restrict 1L today Electrolyte abnormalities: None currently Nutrition: Sodium-controlled diet PPX: DVT - Already on xeralto 15mg qDaily GI - Protonix 40mg qDaily Dispo: Telemetry admit Case discussed with Dr. Armstrong and Dr. Elizabeth Duckworth, DO - IM PGY-1 Visit type - Emergency Visit Emergency Visit: Yes ED Registration Date: 11/23/17 Care time: The patient presented to the Emergency Department on the above date and was hospitalized for further evaluation of their emergent condition. - New Patient This patient is new to me today: Yes Date on this admission: 11/23/17 - Critical Care Critical Care patient: No Hospitalist Screening - Colonoscopy Questionnaire Colonoscopy Questionnaire: Colonoscopy Questionnaire - Patient: 50 - 75 years old and never had a screening colonoscopy: Unknown History of colon or rectal polyps, or CA: Unknown History of IBD, Crohn's disease or UC: Unknown History of abdominal radiation therapy as a child: Unknown - Relative: 1 with colon or rectal CA, or polyps at age 60 or younger: Unknown Colon or rectal CA diagnosed at age 45 or younger: Unknown Multiple relatives with colon or rectal CA: Unknown - Outcome: Screening Result: Negative Screen
--- NOTE | 2017-11-23 17:25 | CON.CARD ---
Consult Consult Specialty:: cardio - History of Present Illness Chief Complaint: fall vs syncope History of Present Illness: 82 yo male here for fall vs syncope. pt in my office today for ICD check (not seen by me or any other provider at that time). son with him in parking lot, pt fell (son reported he "tripped" to my staff--i arrived at office after they left). son reported he DID HIT HIS HEAD on the ground and was unresponsive briefly ( estimated 45 seconds) pt states he has no recall for details at all. he has had no cp or ICD shocks. HAS BEEN FEELING LIGHTHEADED WHEN STANDING/WALKING LATELY--? HOW LONG. legs swollen--can't say if better than when saw me 2 wks ago. denies new back pains. admits to SOB when walking lately, after 10-20 steps PMH: syst CHF ICD afib epistaxis - Past Medical History Cardio/Vascular: Yes: AFIB, CAD, CHF, Hyperlipdemia, Other (thoracic aortic aneurysm) Pulmonary: Yes: Sleep Apnea Gastrointestinal: Yes: Other (umbilical hernia) Renal/: Yes: Hematuria, Renal Calculi Endocrine: Yes: Diabetes Insipidus - Past Surgical History Past Surgical History: Yes: AICD, Hernia Repair, Joint Replacement - Alcohol/Substance Use Hx Alcohol Use: No - Smoking History Smoking history: Never smoked Have you smoked in the past 12 months: No Aproximately how many cigarettes per day: 0 Home Medications - Allergies Allergies/Adverse Reactions: Allergies Allergy/AdvReac Type Severity Reaction Status Date / Time No Known Drug Allergies Allergy Verified 10/29/17 18:41 - Home Medications Home Medications: Ambulatory Orders Atorvastatin Ca [Lipitor] 10 mg PO HS 10/15/17 Carvedilol [Coreg -] 25 mg PO BID 10/15/17 Digoxin [Lanoxin -] 0.125 mg PO DAILY 10/15/17 Sitagliptin Phosphate [Januvia] 100 mg PO DAILY 10/15/17 Glyburide 10 mg PO DAILY #60 tablet 10/18/17 Pantoprazole Sodium [Protonix] 40 mg PO DAILY #4 tablet. 10/20/17 Rivaroxaban [Xarelto -] 15 mg PO DAILY #30 tab 11/02/17 Torsemide 100 mg PO DAILY 11/23/17 Review of Systems - Review of Systems Constitutional: denies: Chills, Fever Eyes: denies: Eye Pain HENT: denies: Nasal Congestion Neck: denies: Stiffness Cardiovascular: denies: Palpitations Respiratory: denies: Orthopnea, PND Gastrointestinal: denies: Diarrhea, Rectal Bleeding Genitourinary: denies: Burning, Hematuria Musculoskeletal: denies: Muscle Pain Integumentary: denies: Rash Neurological: reports: Syncope. denies: Numbness, Seizure Endocrine: denies: Excessive Sweating Hematology/Lymphatic: denies: Excessive Bleeding Vital Signs: Vital Signs Temperature 97.6 F 11/23/17 16:21 Pulse Rate 73 11/23/17 16:21 Respiratory Rate 20 11/23/17 16:21 Blood Pressure 122/93 11/23/17 11:45 O2 Sat by Pulse Oximetry (%) 96 11/23/17 11:45 Constitutional: Yes: Well Nourished, No Distress Eyes: No: Sclera Icterus HENT: No: Nasal Congestion Neck: No: Decreased ROM Respiratory: Yes: CTA Bilaterally (decr diffusely), Rales (L base). No: Accessory Muscle Use, Wheezes Gastrointestinal: Yes: Normal Bowel Sounds. No: Distention, Hepatomegaly, Palpable Mass, Tenderness Cardiovascular: Yes: Pulse Irregular (decr intensity (unchanged vs prior)) JVD: No Carotid Bruit: No PMI: Non-Displaced Heart Sounds: Yes: S1, S2. No: Gallop Murmur: No: Systolic Murmur, Diastolic Murmur Musculoskeletal: Yes: Other (No kyphosis) Extremities: No: Cold, Cyanosis Edema: Yes (2+ pretib) Peripheral Pulses: 2+ Left Carotid, 2+ Right Carotid, 2+ Left Doralis Pedis, 2+ Right Dorsalis Pedis Integumentary: No: Jaundice Neurological: Yes: Alert, Oriented (x3) Psychiatric: No: Agitated - Other Data Labs, Other Data: CBC, BMP 11/23/17 12:05 11/23/17 12:05 INR, PTT INR 1.86 (0.82-1.09) H 11/23/17 12:05 Troponin, BNP 11/23/17 11/23/17 12:05 12:05 Troponin I 0.02 B-Natriuretic Peptide 1406.08 H Troponin, BNP 11/23/17 11/23/17 12:05 12:05 Troponin I 0.02 B-Natriuretic Peptide 1406.08 H Assessment/Plan CXR: L base consolidation vs atelectasis vs effusion CT head: no acute pathology or bleed tele: afib, V-s > V-p (hr controlled) Syncope: -SUSPECT THIS WAS ORTHOSTASIS, DUE TO RECENT INCREASE IN DIURETIC DOSE 2 WKS AGO (PT DID NOT COMPLY WITH F/U BMP 1 WEEK LATER) IN SETTING OF STABLE ANEMIA ( HGB 7'S). CREAT NOTED TO BE UP FROM RECENT D/C VALUE. -RUNS LOW BP'S AT BASELINE (100S-110S SYSTOLIC), STABLE HERE. -PT REPORTS POSITIONAL LH SX'S OF LATE. -CHECK ORTHOSTATICS -ADJUST DIURETICS BELOW -TRANSFUSE DOING -DOUBT VT/VF GIVEN NO REPORTED ICD SHOCK AND BENIGN DEVICE CHECK MOMENTS BEFORE THE EVENT. WILL REPEAT ICD CHECK TOMORROW IF POSSIBLE (IN HOSPITAL). OF NOTE, HIS EF IS *NOT* IN HI RISK ZONE FOR MALIGNANT ARRHYTHMIA. -MONITOR TELE X 24 HRS. IF NORMAL, IT IS OK TO RECHECK ICD IN OFFICE AFTER DISCHARGE (HE IS PROTECTED BY NORMALLY FUNCTIONING ICD) -RARELY V-PACES (3%). LRL INCREASED 40 TO 50 TODAY IN OFFICE. HENCE PROTECTED FROM BRADYARRHYTHMIC CAUSE OF SYNCOPE -NO SX'S SUGGESTIVE OF ACUTE AORTA DISSECTION (AND COMPARISON OF CXR TO PRIOR SHOWS NO CHANGE, I.E. LEFT BASE FINDINGS NOT NEW)--FOR CT CHEST WITH IV CONTRAST TO RULE OUT. Anemia: -HGB DOWN TO 6.0 DUE TO EPISTAXIS WHEN HERE LAST, UP TO 7S AFTER PRBC'S. -STABLE VS PRIOR. -SUGGEST TRANSFUSE TO >9 TO MINIMIZE CHANCES OF CV SX'S (INCLUDING CHF DECOMPENSATION) AND/OR RECURRENT ORTHOSTATIC SYNCOPE Left lower lobe abnormality on CXR: -REPORT REVIEWED: C/W CONSOLIDATION VS ATX VS EFFUSION. -IMAGE REVIEWED BY ME, COMPARED TO PRIOR 10/13--R BASE CHANGES HAVE RESOLVED. LEFT BASE APPEARS SAME (OBSCURED BY LARGE HEART). -PT LIKELY DRY--DOUBT CHF EFFUSION -DUE FOR CT CHEST FOR THORACIC AORTA SIZE F/U. WILL DO STUDY HERE AND ASSESS LEFT BASE REGION MORE CLEARLY AT THAT TIME WELL. Persistent atrial fibrillation: -HR WELL CONTROLLED ON CARVEDILOL AND DIGOXIN. CONTINUE SAME. (DIG LEVEL GOOD) -RECENTLY S/P RECURRENT EPISODES OF EPISTAXIS (5X IN PAST 1 MONTH) S/P PACKING, MULT TRANSFUSIONS--RESOLVED AFTER XARELTO HELD X 4-5 DAYS. -PER MY RECENT D/W ENT (CARLOS): HAD VISIBLE BLEEDING VESSEL X 2 IN HOSPITAL-- CAUTERIZED ONCE, FAILED CAUTERY WHEN VERY BRISK BLEEDING IN ER. ON RECENT ENT EXAM LAST WEEK NO VISIBLE VESSEL TO CAUTERIZE LIKELY CULPRIT FOR BLEED. -XARELTO HELD TOTAL OF 7 DAYS THEN RESUMED AT 15 MG DOSE FOR NOW WHILE OBSERVE FOR BLEEDING. -HGB STABLE VS PRIOR--CONT AC DOING Paroxysmal ventricular tachycardia: -MULT EPISODES ON ICD IN PAST INCL SHOCKED ONCE--? RAPID AFIB AND NOT TRUE VT, PER PREVIOUS REVIEW OF EGM'S WITH EPS. -PREVIOUSLY WITH ONE EPISODE TRUE VT SUSPECTED ON ICD TRACINGS--ABORTED WITH ATP PACING, MULTIPLE NON-SUSTAINED EPISODES. -ICD CHECKED TODAY (11/23)--NON-SUSTAINED EPISODES SEEN, NO THERAPIES GIVEN. -DEFERRING AMIO UNLESS RECURRENT ICD SHOCKS, PER EP REC.S; Right ventricular cardiomyopathy: -ECHO 01/11 WITH RV DILATION AND PROBABLY MILD DYSFUNCTION, MODERATE DILATION/ DYSFUNCTION ON HOSPITAL STUDY 10/13. -SUSPECT UNDERLYING PULM HTN CLINICALLY, WITH MARKED PA DILATION ON CT--NOT DOCUMENTED ON ECHO. -CHF OPTIMIZATION DOING. -DECLINES CONSTANTINO TX REPEATEDLY Chronic systolic congestive heart failure: -NONISCH CMP (CONSTANTINO? HTN? DM? TACHY-CMP?), WITH SEVERELY REDUCED LVEF 2012. -EF NORMALIZED ? DUE TO IMPROVED AFIB HR CONTROL (IMPROVED MED COMPLIANCE?), ? DUE TO COREG/GLORIA REGIMEN. -LAST ECHO WITH EF 40-45% (HOSPITAL STUDY 10/13), WITH CLINICAL CHF, DILATED IVC , DILATED/HYPOKINETIC RV. -SEEN 11/08 IN OFFICE WITH WT UP 21 LBS VS PRIOR DRY WT, INCR EDEMA OVER BASELINE. WAS CHANGED FROM LASIX 80 QD TO TORSEMIDE 100 QD AND INSTRUCTED TO DO F/U BMP 1 WEEK--NOT DONE. -PRESENTLY APPEARS SLIGHTLY PRERENAL, WITH SYNCOPE ? DUE TO VOL DEPLETION. -CHANGE TORSEMIDE TO 50MG QD--WILL WAIT TO RESUME DIURETICS UNTIL 48 HRS S/P IV CONTRAST -CONT CARVEDILOL 25 BID. -ENALAPRIL STOPPED IN HOSPITAL FOR ? ANGIOEDEMA (LOCALIZED UVULA ERYTHEMA/EDEMA , PT C/O FEELING SOMETHING IN BACK OF THROAT--NO SOB/AIRWAY CLOSING SX PER NOTES REVIEW)--UNFORTUNATELY THIS WAS THE DAY AFTER HE WAS EXAMINED BY ENT AND THEY WERE NOT RECONSULTED TO CONFIRM OR REFUTE THE CLINICAL IMPRESSION OF ANGIOEDEMA. -I D/W'D DR GONZALEZ WHO SAW HIM THE DAY BEFORE THE ABOVE COMPLAINS AND NOTED EDEMATOUS/ECCHYMOTIC UVULA, POSSIBLY DUE TO CONSTANTINO OR IF PT WAS MANIPULATING THE AREA WITH HIS FINGER. -HENCE DOUBT HE HAD TRUE ANGIOEDEMA. WILL CONSIDER TRIAL OF ARB IN FUTURE THOUGH DOUBT LOW BP WILL TOLERATE. Aneurysm of the ascending aorta: -01/11 CT: ASCENDING LARGEST AT 5.0 CM, NO SIGNIF CHANGE VS PRIOR. -PER PRIOR CTS CONSULT (LEANDRO): YEARLY IMAGING (CT CHEST), WITH CONSIDERATION OF SURGERY IF 6 CM OR ABOVE (HIGHER THRESHOLD TO OPERATE, GIVEN PT'S INCR'D SURGICAL RISK); -BP CONTROL GOOD AT TIGHT TARGETS. -RPT STUDY OVERDUE (Q6MO). TO BE DONE WHILE HERE. Morbid obesity, Obstructive sleep apnea: -SEVERE CONSTANTINO. REFUSES CPAP OR ORAL APPLIANCE REPEATEDLY OUTPT Pure hypercholesterolemia: -PRIMARY PREVN, DM. -ON ATORVA [address] CORBETT PMD--ROUTINE LIPID F/U WITH PMD DOING Diabetes mellitus without complication: -ON ORALS; A1C 7'S LAST, STABLE (ARIC)
[2017-11-23] MEDS: INSULIN SLIDING SCALE (NOVOLOG) 1 VIAL SQ SCH ×2 (18:31→23:00)
[2017-11-23] MEDS ORDERED: INSULIN (NOVOLOG) ASPART 100 UNITS/ML 10ML VIAL ONE (18:34)
--- NOTE | 2017-11-23 19:04 | PN ---
Teaching Attending Note Name of Resident: Alonzo Duckworth ATTENDING PHYSICIAN STATEMENT I saw and evaluated the patient. I reviewed the resident's note and discussed the case with the resident. I agree with the resident's findings and plan as documented. SUBJECTIVE: OBJECTIVE: Vital Signs Period Temp Pulse Resp BP Sys/Lambert Pulse Ox Last 24 Hr 97.6 F-97.6 F 72-73 20-20 122/93 96 Laboratory Tests 11/23/17 11/23/17 11/23/17 12:05 12:05 12:05 WBC 8.8 RBC 2.78 L Hgb 7.1 L Hct 22.2 L MCV 79.8 L MCH 25.6 L D MCHC 32.0 RDW 19.5 H Plt Count 197 MPV 8.0 D Neutrophils % 75.2 Lymphocytes % 9.0 D Monocytes % 12.8 H Eosinophils % 2.3 Basophils % 0.7 Nucleated RBC % 0 PT with INR 21.00 H INR 1.86 H Sodium 137 Potassium 3.7 Chloride 102 Carbon Dioxide 27 Anion Gap 8 BUN 31 H Creatinine 1.4 H D Creat Clearance w eGFR 48.76 POC Glucometer Random Glucose 224 H D Calcium 7.8 L Magnesium 2.3 Total Bilirubin 1.2 H AST 16 ALT 14 Alkaline Phosphatase 213 H D Creatine Kinase 43 Troponin I 0.02 B-Natriuretic Peptide Total Protein 6.4 Albumin 3.1 L Urine Color Urine Appearance Urine pH Ur Specific [place] Urine Protein Urine Glucose (UA) Urine Ketones Urine Blood Urine Nitrite Urine Bilirubin Urine Urobilinogen Ur Leukocyte Esterase Urine WBC (Auto) Urine RBC (Auto) Digoxin 0.62 L Blood Type Antibody Screen Crossmatch 11/23/17 11/23/17 11/23/17 12:05 12:05 12:05 WBC RBC Hgb Hct MCV MCH MCHC RDW Plt Count MPV Neutrophils % Lymphocytes % Monocytes % Eosinophils % Basophils % Nucleated RBC % PT with INR INR Sodium Potassium Chloride Carbon Dioxide Anion Gap BUN Creatinine Creat Clearance w eGFR POC Glucometer Random Glucose Calcium Magnesium Total Bilirubin AST ALT Alkaline Phosphatase Creatine Kinase Troponin I B-Natriuretic Peptide 1406.08 H Total Protein Albumin Urine Color Straw Urine Appearance Clear Urine pH 7.0 Ur Specific [place] 1.006 Urine Protein Negative Urine Glucose (UA) Negative Urine Ketones Negative Urine Blood 1+ H Urine Nitrite Negative Urine Bilirubin Negative Urine Urobilinogen Negative Ur Leukocyte Esterase Negative Urine WBC (Auto) <1 Urine RBC (Auto) 2 Digoxin Blood Type A POSITIVE Antibody Screen Negative Crossmatch See Detail 11/23/17 18:28 WBC RBC Hgb Hct MCV MCH MCHC RDW Plt Count MPV Neutrophils % Lymphocytes % Monocytes % Eosinophils % Basophils % Nucleated RBC % PT with INR INR Sodium Potassium Chloride Carbon Dioxide Anion Gap BUN Creatinine Creat Clearance w eGFR POC Glucometer [phone] Random Glucose Calcium Magnesium Total Bilirubin AST ALT Alkaline Phosphatase Creatine Kinase Troponin I B-Natriuretic Peptide Total Protein Albumin Urine Color Urine Appearance Urine pH Ur Specific [place] Urine Protein Urine Glucose (UA) Urine Ketones Urine Blood Urine Nitrite Urine Bilirubin Urine Urobilinogen Ur Leukocyte Esterase Urine WBC (Auto) Urine RBC (Auto) Digoxin Blood Type Antibody Screen Crossmatch Home Medications Medication Instructions Recorded Atorvastatin Ca [Lipitor] 10 mg PO HS 10/15/17 Carvedilol [Coreg -] 25 mg PO BID 10/15/17 Digoxin [Lanoxin -] 0.125 mg PO DAILY 10/15/17 Sitagliptin Phosphate [Januvia] 100 mg PO DAILY 10/15/17 Glyburide 10 mg PO DAILY #60 tablet 10/18/17 Pantoprazole Sodium [Protonix] 40 mg PO DAILY #4 tablet. 10/20/17 Rivaroxaban [Xarelto -] 15 mg PO DAILY #30 tab 11/02/17 Torsemide 100 mg PO DAILY 11/23/17 ASSESSMENT AND PLAN:
[2017-11-23] MEDS: CARVEDILOL 25 MG TABLET (FP) PO SCH (22:45)
[2017-11-23] MEDS ORDERED: INSULIN REGULAR HUMAN 100 UNITS/ML *VIAL ONE (23:56)
[2017-11-23] MEDS ORDERED: CARVEDILOL 12.5 MG TABLET (FP) ONE (23:58)
[2017-11-24] MEDS: ATORVASTATIN CA 10 MG TABLET (FP) PO SCH ×2 (01:52→22:42)
[2017-11-24] MEDS: INSULIN SLIDING SCALE (NOVOLOG) 1 VIAL SQ SCH ×4 (06:04→22:43)
[2017-11-24] MEDS ORDERED: INSULIN (NOVOLOG) ASPART 100 UNITS/ML 10ML VIAL ONE ×3 (06:06→22:37)
[2017-11-24 07:30] LABS: HEMATOCRIT 23.6 % (35.4-49); HEMOGLOBIN 7.7 GM/dL (11.7-16.9); MCH 26.2 pg (25.7-33.7); MCHC 32.6 g/dl (32.0-35.9); MEAN CELL VOLUME 80.5 fl (80-96); MEAN PLT VOLUME 8.4 fl (7.5-11.1); PLATELET COUNT 183 K/MM3 (134-434); RBC 2.93 M/mm3 (4.00-5.60); RDW 19.4 % (11.9-15.9); WHITE BLOOD COUNT 9.3 K/mm3 (4.0-10.0)
[2017-11-24 07:31] LABS: INR 1.51 (0.82-1.09); PROTHROMBIN TIME (PATIENT) 17.1 SEC (9.7-13.0)
[2017-11-24 07:33] LABS: ACTIVATED PTT 29.7 SECONDS (26.9-34.4)
[2017-11-24 07:49] LABS: CHLORIDE 103 mmol/L (98-107); POTASSIUM 3.8 mmol/L (3.5-5.1); SODIUM 139 mmol/L (136-145)
--- NOTE | 2017-11-24 07:54 | PN ---
Physical Exam: SUBJECTIVE: Pt without complaints today. No events overnight to report. OBJECTIVE: Vital Signs Period Temp Pulse Resp BP Sys/Lambert Pulse Ox Last 24 Hr 97.6 F-98.6 F 72-78 20-20 91-126/48-93 95-96 GENERAL: NAD, Awake, alert, and sitting at bedside eating breakfast HEENT: NC/AT, EOMI, ERIKA, pallor noted. moist mucosa, sclera anicteric. Neck: Minimal JVD noted on L side today LUNGS: Rales bibasillarly today. No wheezes. No accessory muscle use. HEART: RRR, normal S1 and S2 without murmur ABDOMEN: Soft, obese, nondistended, nontender, normoactive bowel sounds, no guarding, no masses. No hepatomegaly EXTREMITIES: 2+ DP pulses, warm, well-perfused. No cyanosis. 3+ peripheral edema to thighs. Slight erythematous lower ext. with abrasion to L lateral lower ext. PSYCHIATRIC: Cooperative. Good eye contact. Appropriate mood and affect. SKIN: Warm, dry, no rashes or lesions noted Laboratory Results - last 24 hr 11/23/17 11/23/17 11/23/17 12:05 12:05 12:05 WBC 8.8 RBC 2.78 L Hgb 7.1 L Hct 22.2 L MCV 79.8 L MCH 25.6 L D MCHC 32.0 RDW 19.5 H Plt Count 197 MPV 8.0 D Neutrophils % 75.2 Lymphocytes % 9.0 D Monocytes % 12.8 H Eosinophils % 2.3 Basophils % 0.7 Nucleated RBC % 0 PT with INR 21.00 H INR 1.86 H Sodium 137 Potassium 3.7 Chloride 102 Carbon Dioxide 27 Anion Gap 8 BUN 31 H Creatinine 1.4 H D Creat Clearance w eGFR 48.76 POC Glucometer Random Glucose 224 H D Calcium 7.8 L Magnesium 2.3 Total Bilirubin 1.2 H AST 16 ALT 14 Alkaline Phosphatase 213 H D Creatine Kinase 43 Troponin I 0.02 B-Natriuretic Peptide Total Protein 6.4 Albumin 3.1 L Urine Color Urine Appearance Urine pH Ur Specific [place] Urine Protein Urine Glucose (UA) Urine Ketones Urine Blood Urine Nitrite Urine Bilirubin Urine Urobilinogen Ur Leukocyte Esterase Urine WBC (Auto) Urine RBC (Auto) Digoxin 0.62 L Blood Type Antibody Screen Crossmatch 11/23/17 11/23/17 11/23/17 12:05 12:05 12:05 WBC RBC Hgb Hct MCV MCH MCHC RDW Plt Count MPV Neutrophils % Lymphocytes % Monocytes % Eosinophils % Basophils % Nucleated RBC % PT with INR INR Sodium Potassium Chloride Carbon Dioxide Anion Gap BUN Creatinine Creat Clearance w eGFR POC Glucometer Random Glucose Calcium Magnesium Total Bilirubin AST ALT Alkaline Phosphatase Creatine Kinase Troponin I B-Natriuretic Peptide 1406.08 H Total Protein Albumin Urine Color Straw Urine Appearance Clear Urine pH 7.0 Ur Specific [place] 1.006 Urine Protein Negative Urine Glucose (UA) Negative Urine Ketones Negative Urine Blood 1+ H Urine Nitrite Negative Urine Bilirubin Negative Urine Urobilinogen Negative Ur Leukocyte Esterase Negative Urine WBC (Auto) <1 Urine RBC (Auto) 2 Digoxin Blood Type A POSITIVE Antibody Screen Negative Crossmatch See Detail 11/23/17 11/23/17 11/23/17 18:28 20:48 23:46 WBC RBC Hgb Hct MCV MCH MCHC RDW Plt Count MPV Neutrophils % Lymphocytes % Monocytes % Eosinophils % Basophils % Nucleated RBC % PT with INR INR Sodium Potassium Chloride Carbon Dioxide Anion Gap BUN Creatinine Creat Clearance w eGFR POC Glucometer [phone] 201.43379 Random Glucose Calcium Magnesium Total Bilirubin AST ALT Alkaline Phosphatase Creatine Kinase Troponin I B-Natriuretic Peptide Total Protein Albumin Urine Color Urine Appearance Urine pH Ur Specific [place] Urine Protein Urine Glucose (UA) Urine Ketones Urine Blood Urine Nitrite Urine Bilirubin Urine Urobilinogen Ur Leukocyte Esterase Urine WBC (Auto) Urine RBC (Auto) Digoxin Blood Type Antibody Screen Crossmatch 11/24/17 11/24/17 05:18 06:30 WBC 9.3 RBC 2.93 L Hgb 7.7 L Hct 23.6 L MCV 80.5 MCH 26.2 MCHC 32.6 RDW 19.4 H Plt Count 183 MPV 8.4 Neutrophils % Lymphocytes % Monocytes % Eosinophils % Basophils % Nucleated RBC % PT with INR INR Sodium Potassium Chloride Carbon Dioxide Anion Gap BUN Creatinine Creat Clearance w eGFR POC Glucometer 158 Random Glucose Calcium Magnesium Total Bilirubin AST ALT Alkaline Phosphatase Creatine Kinase Troponin I B-Natriuretic Peptide Total Protein Albumin Urine Color Urine Appearance Urine pH Ur Specific [place] Urine Protein Urine Glucose (UA) Urine Ketones Urine Blood Urine Nitrite Urine Bilirubin Urine Urobilinogen Ur Leukocyte Esterase Urine WBC (Auto) Urine RBC (Auto) Digoxin Blood Type Antibody Screen Crossmatch Active Medications Generic Name Dose Route Start Last Admin Trade Name Rajesh PRN Reason Stop Dose Admin Atorvastatin Calcium 10 mg 11/23/17 22:00 11/24/17 01:52 Lipitor - PO Not Given HS [facility] Carvedilol 25 mg 11/23/17 22:00 11/23/17 22:45 Coreg - PO 25 mg BID [facility] Administration Digoxin 0.125 mg 11/24/17 10:00 Lanoxin - PO DAILY [facility] Insulin Aspart 1 vial 11/23/17 16:30 11/24/17 06:04 Novolog Vial Sliding Scale - SQ 2 units ACHS [facility] Administration Protocol Pantoprazole Sodium 40 mg 11/24/17 10:00 Protonix - PO DAILY [facility] Rivaroxaban 15 mg 11/24/17 18:00 Xarelto - PO DAILY@1800 [facility] Torsemide 100 mg 11/24/17 10:00 Demadex - PO DAILY [facility] ASSESSMENT/PLAN: 1) Syncope --EGM strip not in chart? --Visualized yesterday when doing admit along with Dr. Johnson --Dr. Horta spoke with rep who will come to interrogate again for EP purposes --Head Ct prior negative --Most recent echo 10/15/17 revealing EF 40-45% with RV dilation; no indication for echo --EKG unchanged from previous on November 02; continue telemetry monitoring 2) Microcytic anemia --Iron studies pending --After 1U PRBC only .6 improvement in Hgb; will transfuse to 9.0 --2UPRBC ordered; transfuse 1U and then will delay second transfusion to allow for volume recovery 3) Congestive heart failure; mixed --Previous echo 10/15/17; see above --Cardiology on board ----In lieu of shock causing syncopal event, continue Torsemide 100mg PO --Strict I&Os --Daily weights 4) Acute kidney injury --Cr 1.3 w/o uremia (downtrending slowly) --Most likely multifactorial with Torsemide and anemia --Expect to decline after PRBCs 5) Atrial fibrillation --Continue Digoxin 0.125mg; cardiology cleared level being okay --Continue Coreg 25mg PO BID --Currently rate controlled --Xarelto 15mg PO due to recurrent epistaxis episodes previously FEN: Fluids: Fluid restrict 1L Electrolyte abnormalities: None currently Nutrition: Sodium-controlled diet PPX: DVT - Already on xeralto 15mg qDaily GI - Protonix 40mg qDaily Dispo: Continue tele Case discussed with Dr. Saleem Duckworth, DO - IM PGY-1 Visit type - Emergency Visit Emergency Visit: No - New Patient This patient is new to me today: No - Critical Care Critical Care patient: No
[2017-11-24 08:19] LABS: ALBUMIN 3.1 g/dl (3.4-5.0); ALK PHOS 204 U/L (45-117); ANION GAP 7 (8-16); BILIRUBIN,TOTAL 1.6 mg/dL (0.2-1.0); BLOOD UREA NITROGEN 29 mg/dL (7-18); CALCIUM 7.9 mg/dL (8.5-10.1); CO2 29 mmol/L (21-32); CREATININE 1.3 mg/dL (0.7-1.3); GLUCOSE,RANDOM 149 mg/dL (74-106); SGOT/AST 14 U/L (15-37); SGPT/ALT 14 U/L (12-78); TOT PROT 6.3 g/dl (6.4-8.2)
--- NOTE | 2017-11-24 09:38 | EKG ---
Test Reason : Blood Pressure : / mmHG Vent. Rate : 072 BPM Atrial Rate : 071 BPM P-R Int : 000 ms QRS Dur : 156 ms QT Int : 456 ms P-R-T Axes : 000 -67 009 degrees QTc Int : 499 ms ATRIAL FIBRILLATION WITH PREMATURE VENTRICULAR OR ABERRANTLY CONDUCTED COMPLEXES LEFT AXIS DEVIATION RIGHT BUNDLE BRANCH BLOCK INFERIOR INFARCT (CITED ON OR BEFORE 13-SEP-2006) ANTERIOR INFARCT (CITED ON OR BEFORE 22-MAY-2011) ABNORMAL ECG WHEN COMPARED WITH ECG OF 29-OCT-2017 20:00, QUESTIONABLE CHANGE IN INITIAL [employer]CES OF SEPTAL LEADS Confirmed by VALORIE ESTRADA MD ([id number]) on 11/24/2017 9:38:51 AM Referred By: Confirmed By:VALORIE ESTRADA MD
[2017-11-24] MEDS ORDERED: PT OWN MED DRAWER 7, Y5N ONE ×2 (09:47→17:19)
[2017-11-24] MEDS: TORSEMIDE 20 MG TABLET (FP) PO SCH (09:50)
[2017-11-24] MEDS: PANTOPRAZOLE 40 MG TABLET (FP) PO SCH (09:51)
[2017-11-24] MEDS: DIGOXIN 0.125 MG TABLET (FP) PO SCH (09:51)
[2017-11-24] MEDS ORDERED: TORSEMIDE 20 MG TABLET (FP) PO SCH (10:00)
--- NOTE | 2017-11-24 12:01 | PN ---
Progress Note (short form) - Note Progress Note: s: no cp sob palps dizzy loc o: Vital Signs Period Temp Pulse Resp BP Sys/Lambert Pulse Ox Last 24 Hr 97.6 F-98.6 F 69-78 20-20 91-126/48-68 93-95 Current Medications Generic Name Dose Route Start Last Admin Trade Name Tomq PRN Reason Stop Dose Admin Atorvastatin Calcium 10 mg 11/23/17 22:00 11/24/17 01:52 Lipitor - PO Not Given HS [facility] Carvedilol 25 mg 11/23/17 22:00 11/23/17 22:45 Coreg - PO 25 mg BID [facility] Administration Digoxin 0.125 mg 11/24/17 10:00 11/24/17 09:51 Lanoxin - PO 0.125 mg DAILY [facility] Administration Insulin Aspart 1 vial 11/23/17 16:30 11/24/17 06:04 Novolog Vial Sliding Scale - SQ 2 units ACHS [facility] Administration Protocol Pantoprazole Sodium 40 mg 11/24/17 10:00 11/24/17 09:51 Protonix - PO 40 mg DAILY [facility] Administration Rivaroxaban 15 mg 11/24/17 18:00 Xarelto - PO DAILY@1800 [facility] Torsemide 100 mg 11/24/17 10:00 11/24/17 09:50 Demadex - PO 100 mg DAILY [facility] Administration Constitutional: Yes: Well Nourished, No Distress Eyes: No: Sclera Icterus Respiratory: Yes: CTA Bilaterally (decr diffusely), Rales (L base). No: Accessory Muscle Use, Wheezes Gastrointestinal: Yes: Normal Bowel Sounds. No: Distention, Hepatomegaly, Palpable Mass, Tenderness Cardiovascular: Yes: Pulse Irregular JVD: No Heart Sounds: Yes: S1, S2. No: Gallop Murmur: No: Systolic Murmur, Diastolic Murmur Extremities: No: Cold, Cyanosis Edema: Yes (2+ pretib) Integumentary: No: Jaundice Neurological: Yes: Alert, Oriented (x3) Psychiatric: No: Agitated - Other Data Labs, Other Data: CBC, BMP 11/24/17 06:30 11/24/17 06:30 CXR: L base consolidation vs atelectasis vs effusion CT head: no acute pathology or bleed tele: afib, V-s > V-p (hr controlled) Assessment/Plan Syncope: -informed by hospitalist team that ICD was interrogated in the ER and there was episode of "vfib" requiring device shock 11/23 AM am, around time of reported syncope. -egm strip not in chart and cannot be found in ER so d/w with [employer] rep and will re-check icd today so that can discuss with EP in regards to any needed med changes -con tele -no signs acs Anemia: -HGB DOWN TO 6.0 DUE TO EPISTAXIS WHEN HERE LAST, UP TO 7S AFTER PRBC'S. -STABLE VS PRIOR. -SUGGEST TRANSFUSE TO >9 TO MINIMIZE CHANCES OF CV SX'S (INCLUDING CHF DECOMPENSATION) AND/OR RECURRENT ORTHOSTATIC SYNCOPE Left lower lobe abnormality on CXR: -REPORT REVIEWED: C/W CONSOLIDATION VS ATX VS EFFUSION. -IMAGE REVIEWED BY ME, COMPARED TO PRIOR 10/13--R BASE CHANGES HAVE RESOLVED. LEFT BASE APPEARS SAME (OBSCURED BY LARGE HEART). -PT LIKELY DRY--DOUBT CHF EFFUSION -DUE FOR CT CHEST FOR THORACIC AORTA SIZE F/U. WILL DO STUDY HERE AND ASSESS LEFT BASE REGION MORE CLEARLY AT THAT TIME WELL. Persistent atrial fibrillation: -HR WELL CONTROLLED ON CARVEDILOL AND DIGOXIN. CONTINUE SAME. (DIG LEVEL GOOD) -RECENTLY S/P RECURRENT EPISODES OF EPISTAXIS (5X IN PAST 1 MONTH) S/P PACKING, MULT TRANSFUSIONS--RESOLVED AFTER XARELTO HELD X 4-5 DAYS. -PER RECENT D/W ENT (CARLOS): HAD VISIBLE BLEEDING VESSEL X 2 IN HOSPITAL-- CAUTERIZED ONCE, FAILED CAUTERY WHEN VERY BRISK BLEEDING IN ER. ON RECENT ENT EXAM LAST WEEK NO VISIBLE VESSEL TO CAUTERIZE LIKELY CULPRIT FOR BLEED. -XARELTO HELD TOTAL OF 7 DAYS THEN RESUMED AT 15 MG DOSE FOR NOW WHILE OBSERVE FOR BLEEDING. -HGB STABLE VS PRIOR--CONT AC DOING Paroxysmal ventricular tachycardia: -MULT EPISODES ON ICD IN PAST INCL SHOCKED ONCE--? RAPID AFIB AND NOT TRUE VT, PER PREVIOUS REVIEW OF EGM'S WITH EP. -PREVIOUSLY WITH ONE EPISODE TRUE VT SUSPECTED ON ICD TRACINGS--ABORTED WITH ATP PACING, MULTIPLE NON-SUSTAINED EPISODES. -plan as above -DEFERRING AMIO UNLESS RECURRENT ICD SHOCKS, PER EP RECs Right ventricular cardiomyopathy: -ECHO 01/11 WITH RV DILATION AND PROBABLY MILD DYSFUNCTION, MODERATE DILATION/ DYSFUNCTION ON HOSPITAL STUDY 10/13. -SUSPECT UNDERLYING PULM HTN CLINICALLY, WITH MARKED PA DILATION ON CT--NOT DOCUMENTED ON ECHO. -CHF OPTIMIZATION DOING. -DECLINES CONSTANTINO TX REPEATEDLY Chronic systolic congestive heart failure: -NONISCH CMP (CONSTANTINO? HTN? DM? TACHY-CMP?), WITH SEVERELY REDUCED LVEF 2012. -EF NORMALIZED ? DUE TO IMPROVED AFIB HR CONTROL (IMPROVED MED COMPLIANCE?), ? DUE TO COREG/GLORIA REGIMEN. -LAST ECHO WITH EF 40-45% (HOSPITAL STUDY 10/13), WITH CLINICAL CHF, DILATED IVC , DILATED/HYPOKINETIC RV. -SEEN 11/08 IN OFFICE WITH WT UP 21 LBS VS PRIOR DRY WT, INCR EDEMA OVER BASELINE. WAS CHANGED FROM LASIX 80 QD TO TORSEMIDE 100 QD AND INSTRUCTED TO DO F/U BMP 1 WEEK--NOT DONE. -will continue torsemide at 100 qd given ongoing sob sx's and significant edema Aneurysm of the ascending aorta: -01/11 CT: ASCENDING LARGEST AT 5.0 CM, NO SIGNIF CHANGE VS PRIOR. -PER PRIOR CTS CONSULT (LEANDRO): YEARLY IMAGING (CT CHEST), WITH CONSIDERATION OF SURGERY IF 6 CM OR ABOVE (HIGHER THRESHOLD TO OPERATE, GIVEN PT'S INCR'D SURGICAL RISK); -BP CONTROL GOOD AT TIGHT TARGETS. -RPT STUDY OVERDUE (Q6MO). TO BE DONE WHILE HERE. Morbid obesity, Obstructive sleep apnea: -SEVERE CONSTANTINO. REFUSES CPAP OR ORAL APPLIANCE REPEATEDLY OUTPT Pure hypercholesterolemia: -PRIMARY PREVN, DM. -ON ATORVA [address] CORBETT PMD--ROUTINE LIPID F/U WITH PMD DOING Diabetes mellitus without complication: -ON ORALS; A1C 7'S LAST, STABLE (ARIC)
[2017-11-24] MEDS: CARVEDILOL 25 MG TABLET (FP) PO SCH ×2 (13:58→22:42)
[2017-11-24] MEDS: RIVAROXABAN 15 MG TABLET PO SCH (17:25)
--- NOTE | 2017-11-24 19:17 | PN ---
Teaching Attending Note Name of Resident: Alonzo Duckworth ATTENDING PHYSICIAN STATEMENT I saw and evaluated the patient. I reviewed the resident's note and discussed the case with the resident. I agree with the resident's findings and plan as documented. SUBJECTIVE: no fever or chills, denies CP or SOB. does not remember what happened OBJECTIVE: NAD, AAOx3. CV: irreg irreg. no MRG, JVD Lungs: CTAB. Ext: 3+ pitting edema on LE ASSESSMENT AND PLAN: 81 y/o man with h/o HTN, systolic heart failure , A fib, Dm, HLP, CONSTANTINO, thoracic aortic aneurysm, hypertension , recurrent admissions for epistaxis and anemia who presented after a syncopal episode . 1- Syncope: likely due to arrhythmias. ICD interrogation with VT. - cont tele - ICD interrogation to be repeated. - orthostatic VS still pending ( received 2 units of RBC already ) 2- Anemia: due to recurrent epistaxis, can't r/o GI loss. last colonoscopy 2 yrs ago reportedly nl. does not recall which GI doc - iron studies - B12, folate - further w/u as out pt - received 2 units of RBCs. already has LE edema , JVD and crackles. hold of more transfusion today . repat H&H in am . will give Iv lasix if need to transfuse again 3- h/o Systolic heart failure . - cont torsemide . - cont coreg 4- A fib: cont coreg and xarelto 5- TAA: stable on Today's CT scan 6-DVT X : on xarelto 2
[2017-11-24 21:55] LABS: HEMATOCRIT 26.5 % (35.4-49); HEMOGLOBIN 8.5 GM/dL (11.7-16.9); MCHC 32.1 g/dl (32.0-35.9); MEAN PLT VOLUME 8.8 fl (7.5-11.1); PLATELET COUNT 197 K/MM3 (134-434); RBC 3.28 M/mm3 (4.00-5.60); RDW 19.4 % (11.9-15.9); WHITE BLOOD COUNT 8.2 K/mm3 (4.0-10.0)
[2017-11-25] MEDS: INSULIN SLIDING SCALE (NOVOLOG) 1 VIAL SQ SCH ×4 (06:12→22:27)
[2017-11-25] MEDS ORDERED: INSULIN (NOVOLOG) ASPART 100 UNITS/ML 10ML VIAL ONE ×3 (06:45→22:26)
[2017-11-25 07:27] LABS: HEMATOCRIT 25.7 % (35.4-49); HEMOGLOBIN 8.4 GM/dL (11.7-16.9); MCH 26.2 pg (25.7-33.7); MCHC 32.5 g/dl (32.0-35.9); MEAN CELL VOLUME 80.6 fl (80-96); MEAN PLT VOLUME 8.9 fl (7.5-11.1); PLATELET COUNT 179 K/MM3 (134-434); RBC 3.19 M/mm3 (4.00-5.60); RDW 19.3 % (11.9-15.9); WHITE BLOOD COUNT 9.2 K/mm3 (4.0-10.0)
--- NOTE | 2017-11-25 08:31 | PN ---
Physical Exam: SUBJECTIVE: No complaints today. Monitor reports multiple PVC's. OBJECTIVE: Vital Signs Period Temp Pulse Resp BP Sys/Lambert Pulse Ox Last 24 Hr 97 F-98.2 F 53-81 16-20 95-150/50-84 93-93 GENERAL: NAD, Awake, alert, and sitting at bedside eating breakfast HEENT: NC/AT, EOMI, ERIKA, pallor noted. moist mucosa, sclera anicteric. Neck: Minimal JVD noted on L side LUNGS: Rales bilateral lower lobes today. No wheezes. No accessory muscle use. HEART: RRR, normal S1 and S2 without murmur ABDOMEN: Soft, obese, nondistended, nontender, normoactive bowel sounds, no guarding, no masses. No hepatomegaly EXTREMITIES: 2+ DP pulses, warm, well-perfused. No cyanosis. 3+ peripheral edema to thighs. Slight erythematous lower ext. with abrasion to L lateral lower ext. PSYCHIATRIC: Cooperative. Good eye contact. Appropriate mood and affect. SKIN: Warm, dry, no rashes or lesions noted Laboratory Results - last 24 hr 11/23/17 11/24/17 11/24/17 12:05 11:16 16:53 WBC RBC Hgb Hct MCV MCH MCHC RDW Plt Count MPV POC Glucometer 247 172 Ferritin Vitamin B12 Serum Folate Blood Type A POSITIVE Antibody Screen Negative Crossmatch See Detail 11/24/17 11/24/17 11/25/17 21:10 22:40 05:44 WBC 8.2 RBC 3.28 L Hgb 8.5 L D Hct 26.5 L MCV 81.0 MCH 26.0 MCHC 32.1 RDW 19.4 H Plt Count 197 MPV 8.8 POC Glucometer 185 197 Ferritin Vitamin B12 Serum Folate Blood Type Antibody Screen Crossmatch 11/25/17 11/25/17 06:25 06:25 WBC 9.2 RBC 3.19 L Hgb 8.4 L Hct 25.7 L MCV 80.6 MCH 26.2 MCHC 32.5 RDW 19.3 H Plt Count 179 MPV 8.9 POC Glucometer Ferritin 9.680 L Vitamin B12 425 Serum Folate 18 H Blood Type Antibody Screen Crossmatch Active Medications Generic Name Dose Route Start Last Admin Trade Name Freq PRN Reason Stop Dose Admin Atorvastatin Calcium 10 mg 11/23/17 22:00 11/24/17 22:42 Lipitor - PO 10 mg HS [facility] Administration Carvedilol 25 mg 11/23/17 22:00 11/24/17 22:42 Coreg - PO 25 mg BID [facility] Administration Digoxin 0.125 mg 11/24/17 10:00 11/24/17 09:51 Lanoxin - PO 0.125 mg DAILY [facility] Administration Insulin Aspart 1 vial 11/23/17 16:30 11/25/17 06:12 Novolog Vial Sliding Scale - SQ 2 units ACHS [facility] Administration Protocol Pantoprazole Sodium 40 mg 11/24/17 10:00 11/24/17 09:51 Protonix - PO 40 mg DAILY [facility] Administration Rivaroxaban 15 mg 11/24/17 18:00 11/24/17 17:25 Xarelto - PO 15 mg DAILY@1800 [facility] Administration Torsemide 100 mg 11/24/17 10:00 11/24/17 09:50 Demadex - PO 100 mg DAILY [facility] Administration ASSESSMENT/PLAN: 1) Syncope --Dr. Horta spoke with rep today about Vfib episode --Load with amiodarone 400mg today --Head Ct prior negative --Most recent echo 10/15/17 revealing EF 40-45% with RV dilation; no indication for echo --EKG unchanged from previous on November 02; continue telemetry monitoring 2) Microcytic anemia --Iron studies pending --Today h/h at 8.4/25.7 --Transfused to less than 9.0 due to concern over volume overload 3) Volume overload --Previous echo 10/15/17; see above --Cardiology on board --Switch to Lasix 80mg IVP BID --Strict I&Os --Daily weights 4) Acute kidney injury --Cr 1.3 w/o uremia (downtrending slowly) --Most likely multifactorial with Torsemide and anemia --Expect to decline after PRBCs 5) Atrial fibrillation --Continue Digoxin 0.125mg; cardiology cleared level being okay --Continue Coreg 25mg PO BID --Currently rate controlled --Xarelto 15mg PO due to recurrent epistaxis episodes previously FEN: Fluids: Fluid restrict 1L Electrolyte abnormalities: None currently Nutrition: Sodium-controlled diet PPX: DVT - Already on xeralto 15mg qDaily GI - Protonix 40mg qDaily Dispo: Continue tele Case discussed with Dr. Saleem Duckworth, DO - IM PGY-1 Visit type - Emergency Visit Emergency Visit: No - New Patient This patient is new to me today: No - Critical Care Critical Care patient: No
--- NOTE | 2017-11-25 10:01 | PN ---
Progress Note (short form) - Note Progress Note: s: no cp sob palps dizzy loc o: Vital Signs Period Temp Pulse Resp BP Sys/Lambert Pulse Ox Last 24 Hr 97 F-98.2 F 53-81 16-20 95-150/50-84 93-93 Constitutional: Yes: Well Nourished, No Distress Eyes: No: Sclera Icterus Respiratory: Yes: CTA Bilaterally (decr diffusely), Rales (L base). No: Accessory Muscle Use, Wheezes Gastrointestinal: Yes: Normal Bowel Sounds. No: Distention, Hepatomegaly, Palpable Mass, Tenderness Cardiovascular: Yes: Pulse Irregular JVD: No Heart Sounds: Yes: S1, S2. No: Gallop Murmur: No: Systolic Murmur, Diastolic Murmur Extremities: No: Cold, Cyanosis Edema: Yes (2+ pretib) Integumentary: No: Jaundice Neurological: Yes: Alert, Oriented (x3) Psychiatric: No: Agitated - Other Data Labs, Other Data: CBC, BMP 11/25/17 06:25 11/24/17 06:30 CXR: L base consolidation vs atelectasis vs effusion CT head: no acute pathology or bleed tele: afib, V-s > V-p (hr controlled) Assessment/Plan Syncope: - ICD was interrogated in the ER and there was episode of "vfib" requiring device shock 11/23 AM am, around time of reported syncope. - waiting for callback from EP in regards to any needed med changes. if true vf then may need to start amio and diurese more. -con tele -no signs acs Anemia: -HGB DOWN TO 6.0 DUE TO EPISTAXIS WHEN HERE LAST, UP TO 7S AFTER PRBC'S. -STABLE VS PRIOR. -SUGGEST TRANSFUSE TO >9 TO MINIMIZE CHANCES OF CV SX'S (INCLUDING CHF DECOMPENSATION) AND/OR RECURRENT ORTHOSTATIC SYNCOPE Persistent atrial fibrillation: -HR WELL CONTROLLED ON CARVEDILOL AND DIGOXIN. CONTINUE SAME. (DIG LEVEL GOOD) -RECENTLY S/P RECURRENT EPISODES OF EPISTAXIS (5X IN PAST 1 MONTH) S/P PACKING, MULT TRANSFUSIONS--RESOLVED AFTER XARELTO HELD X 4-5 DAYS. -PER RECENT D/W ENT (CARLOS): HAD VISIBLE BLEEDING VESSEL X 2 IN HOSPITAL-- CAUTERIZED ONCE, FAILED CAUTERY WHEN VERY BRISK BLEEDING IN ER. ON RECENT ENT EXAM LAST WEEK NO VISIBLE VESSEL TO CAUTERIZE LIKELY CULPRIT FOR BLEED. -XARELTO HELD TOTAL OF 7 DAYS THEN RESUMED AT 15 MG DOSE FOR NOW WHILE OBSERVE FOR BLEEDING. -HGB STABLE VS PRIOR--CONT AC DOING Paroxysmal ventricular tachycardia: -MULT EPISODES ON ICD IN PAST INCL SHOCKED ONCE--? RAPID AFIB AND NOT TRUE VT, PER PREVIOUS REVIEW OF EGM'S WITH EP. -PREVIOUSLY WITH ONE EPISODE TRUE VT SUSPECTED ON ICD TRACINGS--ABORTED WITH ATP PACING, MULTIPLE NON-SUSTAINED EPISODES. -plan as above -DEFERRING AMIO UNLESS RECURRENT ICD SHOCKS, PER EP RECs Right ventricular cardiomyopathy: -ECHO 01/11 WITH RV DILATION AND PROBABLY MILD DYSFUNCTION, MODERATE DILATION/ DYSFUNCTION ON HOSPITAL STUDY 10/13. -SUSPECT UNDERLYING PULM HTN CLINICALLY, WITH MARKED PA DILATION ON CT--NOT DOCUMENTED ON ECHO. -CHF OPTIMIZATION DOING. -DECLINES CONSTANTINO [place] REPEATEDLY Chronic systolic congestive heart failure: -NONISCH CMP (CONSTANTINO? HTN? DM? TACHY-CMP?), WITH SEVERELY REDUCED LVEF 2012. -EF NORMALIZED ? DUE TO IMPROVED AFIB HR CONTROL (IMPROVED MED COMPLIANCE?), ? DUE TO COREG/GLORIA REGIMEN. -LAST ECHO WITH EF 40-45% (HOSPITAL STUDY 10/13), WITH CLINICAL CHF, DILATED IVC , DILATED/HYPOKINETIC RV. -SEEN 11/08 IN OFFICE WITH WT UP 21 LBS VS PRIOR DRY WT, INCR EDEMA OVER BASELINE. WAS CHANGED FROM LASIX 80 QD TO TORSEMIDE 100 QD AND INSTRUCTED TO DO F/U BMP 1 WEEK--NOT DONE. -will continue torsemide at 100 qd given ongoing sob sx's and significant edema Aneurysm of the ascending aorta: -stable size on ct here -PER PRIOR CTS CONSULT (LEANDRO): YEARLY IMAGING (CT CHEST), WITH CONSIDERATION OF SURGERY IF 6 CM OR ABOVE (HIGHER THRESHOLD TO OPERATE, GIVEN PT'S INCR'D SURGICAL RISK); -BP CONTROL Morbid obesity, Obstructive sleep apnea: -SEVERE CONSTANTINO. REFUSES CPAP OR ORAL APPLIANCE REPEATEDLY OUTPT Pure hypercholesterolemia: -PRIMARY PREVN, DM. -ON ATORVA [address] CORBETT PMD--ROUTINE LIPID F/U WITH PMD DOING Diabetes mellitus without complication: -ON ORALS; A1C 7'S LAST, STABLE (ARIC)
[2017-11-25] MEDS: DIGOXIN 0.125 MG TABLET (FP) PO SCH (10:26)
[2017-11-25] MEDS: TORSEMIDE 20 MG TABLET (FP) PO SCH (10:26)
[2017-11-25] MEDS: FERROUS SO4 325 MG TABLET (FP) PO SCH (10:27)
[2017-11-25] MEDS: CARVEDILOL 25 MG TABLET (FP) PO SCH ×2 (10:27→22:27)
[2017-11-25] MEDS: PANTOPRAZOLE 40 MG TABLET (FP) PO SCH (10:27)
[2017-11-25] MEDS: AMIODARONE HCL 200 MG TABLET (FP) PO SCH ×2 (12:31→22:26)
[2017-11-25] MEDS: FUROSEMIDE 40 MG/4 ML INJECTABLE VIAL IVPUSH SCH (14:14)
--- NOTE | 2017-11-25 15:19 | PN ---
Teaching Attending Note Name of Resident: Alonzo Duckworth ATTENDING PHYSICIAN STATEMENT I saw and evaluated the patient. I reviewed the resident's note and discussed the case with the resident. I agree with the resident's findings and plan as documented. SUBJECTIVE:no pain, no light headedness. OBJECTIVE: NAD, AAOx3. CV: irreg irreg. no MRG, JVD Lungs: CTAB. Ext: 3+ pitting edema on LE ASSESSMENT AND PLAN: 81 y/o man with h/o HTN, systolic heart failure , A fib, Dm, HLP, CONSTANTINO, thoracic aortic aneurysm, hypertension , recurrent admissions for epistaxis and anemia who presented after a syncopal episode . 1- Syncope: likely due to arrhythmias. ICD interrogation with VT but document lost . - await repeat interrogation for need to start Amio - tele with no events. - cont tele - No orthostatic drop in BP with position change. 2- Anemia: due to recurrent epistaxis, can't r/o GI loss. Pt reports no previous colonoscopy today - ferritin 9, but rest of iron studies pending - will start po iron and increase as toelrated over 2 weeks. - need colonoscopy as out pt - B12, folate nl -Received 2 units of RBCs . no orthostatic drop in BP. has LE edema and jVD . will ask card if current Hb is acceptable to avoid volume overload complications 3- H/o Systolic heart failure . - cont torsemide . - cont coreg 4- A fib: cont coreg and xarelto 5- TAA: stable . f/u as out pt 6-DVT X : on xarelto
[2017-11-25] MEDS ORDERED: PT OWN MED DRAWER 7, Y5N ONE (16:57)
[2017-11-25] MEDS: RIVAROXABAN 15 MG TABLET PO SCH (18:21)
[2017-11-25] MEDS: ATORVASTATIN CA 10 MG TABLET (FP) PO SCH (22:26)
[2017-11-26 06:11] LABS: SERUM IRON SATURATION 7 % (15-55); TOTAL IRON BINDING CAPACITY 431 ug/dL (250-450); UIBC 400 ug/dL (111-343)
[2017-11-26] MEDS: FUROSEMIDE 40 MG/4 ML INJECTABLE VIAL IVPUSH SCH ×2 (06:59→13:17)
[2017-11-26] MEDS: INSULIN SLIDING SCALE (NOVOLOG) 1 VIAL SQ SCH ×4 (07:00→21:29)
[2017-11-26 08:38] LABS: HEMOGLOBIN 8.8 GM/dL (11.7-16.9); MCH 26.3 pg (25.7-33.7); MCHC 32.6 g/dl (32.0-35.9); MEAN CELL VOLUME 80.7 fl (80-96); MEAN PLT VOLUME 8.9 fl (7.5-11.1); PLATELET COUNT 180 K/MM3 (134-434); RBC 3.34 M/mm3 (4.00-5.60); RDW 19.7 % (11.9-15.9); WHITE BLOOD COUNT 9.5 K/mm3 (4.0-10.0)
[2017-11-26 09:19] LABS: ANION GAP 8 (8-16); BLOOD UREA NITROGEN 25 mg/dL (7-18); CALCIUM 8.2 mg/dL (8.5-10.1); CHLORIDE 98 mmol/L (98-107); CO2 30 mmol/L (21-32); CREATININE 1.3 mg/dL (0.7-1.3); GLUCOSE,RANDOM 181 mg/dL (74-106); SODIUM 136 mmol/L (136-145)
[2017-11-26] MEDS: CARVEDILOL 25 MG TABLET (FP) PO SCH ×2 (09:32→21:13)
[2017-11-26] MEDS: FERROUS SO4 325 MG TABLET (FP) PO SCH (09:32)
[2017-11-26] MEDS: AMIODARONE HCL 200 MG TABLET (FP) PO SCH ×2 (09:32→21:13)
[2017-11-26] MEDS: DIGOXIN 0.125 MG TABLET (FP) PO SCH (09:32)
[2017-11-26] MEDS: PANTOPRAZOLE 40 MG TABLET (FP) PO SCH (09:32)
--- NOTE | 2017-11-26 11:01 | PN ---
Progress Note (short form) - Note Progress Note: s: no cp sob palps dizzy loc o: Vital Signs Period Temp Pulse Resp BP Sys/Lambert Pulse Ox Last 24 Hr 97.4 F-98.4 F 60-70 18-20 100-135/63-69 98 Constitutional: Yes: Well Nourished, No Distress Eyes: No: Sclera Icterus Respiratory: Yes: CTA Bilaterally (decr diffusely), Rales (L base). No: Accessory Muscle Use, Wheezes Gastrointestinal: Yes: Normal Bowel Sounds. No: Distention, Hepatomegaly, Palpable Mass, Tenderness Cardiovascular: Yes: Pulse Irregular JVD: No Heart Sounds: Yes: S1, S2. No: Gallop Murmur: No: Systolic Murmur, Diastolic Murmur Extremities: No: Cold, Cyanosis Edema: Yes (2+ pretib) Integumentary: No: Jaundice Neurological: Yes: Alert, Oriented (x3) Psychiatric: No: Agitated - Other Data Labs, Other Data: CBC, BMP 11/26/17 07:28 11/26/17 07:25 CXR: L base consolidation vs atelectasis vs effusion CT head: no acute pathology or bleed tele: afib, V-s > V-p (hr controlled) Assessment/Plan Syncope: -d/w EP. Agrees that likely VF and rec'd amio. Will load with amio 400 bid started 11/25. Possible cause of VF is chf exacerbation and pt with significant le edema so started iv diuresis as well, monitor daily wts, chem7 -EP also rec'd increasing lower rate limit of ICD to 70 (in short term, then 60 later on) to help prevent recurrent VF. d/w medtronic rep, will do today. Anemia: -HGB DOWN TO 6.0 DUE TO EPISTAXIS WHEN HERE LAST, UP TO 7S AFTER PRBC'S. -STABLE VS PRIOR. -SUGGEST TRANSFUSE TO >9 TO MINIMIZE CHANCES OF CV SX'S (INCLUDING CHF DECOMPENSATION) AND/OR RECURRENT ORTHOSTATIC SYNCOPE Persistent atrial fibrillation: -HR WELL CONTROLLED ON CARVEDILOL AND DIGOXIN. CONTINUE SAME. (DIG LEVEL GOOD) -RECENTLY S/P RECURRENT EPISODES OF EPISTAXIS (5X IN PAST 1 MONTH) S/P PACKING, MULT TRANSFUSIONS--RESOLVED AFTER XARELTO HELD X 4-5 DAYS. -PER RECENT D/W ENT (CARLOS): HAD VISIBLE BLEEDING VESSEL X 2 IN HOSPITAL-- CAUTERIZED ONCE, FAILED CAUTERY WHEN VERY BRISK BLEEDING IN ER. ON RECENT ENT EXAM LAST WEEK NO VISIBLE VESSEL TO CAUTERIZE LIKELY CULPRIT FOR BLEED. -XARELTO HELD TOTAL OF 7 DAYS THEN RESUMED AT 15 MG DOSE FOR NOW WHILE OBSERVE FOR BLEEDING. -HGB STABLE VS PRIOR--CONT AC DOING Paroxysmal ventricular tachycardia: -MULT EPISODES ON ICD IN PAST INCL SHOCKED ONCE--? RAPID AFIB AND NOT TRUE VT, PER PREVIOUS REVIEW OF EGM'S WITH EP. -PREVIOUSLY WITH ONE EPISODE TRUE VT SUSPECTED ON ICD TRACINGS--ABORTED WITH ATP PACING, MULTIPLE NON-SUSTAINED EPISODES. -plan as above Right ventricular cardiomyopathy: -ECHO 01/11 WITH RV DILATION AND PROBABLY MILD DYSFUNCTION, MODERATE DILATION/ DYSFUNCTION ON HOSPITAL STUDY 10/13. -SUSPECT UNDERLYING PULM HTN CLINICALLY, WITH MARKED PA DILATION ON CT--NOT DOCUMENTED ON ECHO. -CHF OPTIMIZATION DOING. -DECLINES CONSTANTINO [place] REPEATEDLY acute systolic congestive heart failure: -NONISCH CMP (CONSTANTINO? HTN? DM? TACHY-CMP?), WITH SEVERELY REDUCED LVEF 2012. -EF NORMALIZED ? DUE TO IMPROVED AFIB HR CONTROL (IMPROVED MED COMPLIANCE?), ? DUE TO COREG/GLORIA REGIMEN. -LAST ECHO WITH EF 40-45% (HOSPITAL STUDY 10/13), WITH CLINICAL CHF, DILATED IVC , DILATED/HYPOKINETIC RV. -SEEN 11/08 IN OFFICE WITH WT UP 21 LBS VS PRIOR DRY WT, INCR EDEMA OVER BASELINE. WAS CHANGED FROM LASIX 80 QD TO TORSEMIDE 100 QD AND -possible cause of VF is chf exacerbation and pt with significant le edema so started iv diuresis as well, monitor daily wts, chem7 Aneurysm of the ascending aorta: -stable size on ct here -PER PRIOR CTS CONSULT (LEANDRO): YEARLY IMAGING (CT CHEST), WITH CONSIDERATION OF SURGERY IF 6 CM OR ABOVE (HIGHER THRESHOLD TO OPERATE, GIVEN PT'S INCR'D SURGICAL RISK); -BP CONTROL Morbid obesity, Obstructive sleep apnea: -SEVERE CONSTANTINO. REFUSES CPAP OR ORAL APPLIANCE REPEATEDLY OUTPT Pure hypercholesterolemia: -PRIMARY PREVN, DM. -ON ATORVA [address] CORBETT PMD--ROUTINE LIPID F/U WITH PMD DOING Diabetes mellitus without complication: -ON ORALS; A1C 7'S LAST, STABLE (ARIC)
[2017-11-26] MEDS ORDERED: INSULIN (NOVOLOG) ASPART 100 UNITS/ML 10ML VIAL ONE (11:52)
--- NOTE | 2017-11-26 15:21 | PN ---
Physical Exam: SUBJECTIVE: No events overnight to report. No monitor events besides baseline PVC's frequently. Pt has improved work of breathing. OBJECTIVE: Vital Signs Period Temp Pulse Resp BP Sys/Lambert Pulse Ox Last 24 Hr 97.4 F-98.4 F 60-70 18-20 100-120/54-69 98-98 GENERAL: NAD, Awake, alert, and laying in bed HEENT: NC/AT, EOMI, ERIKA, pallor noted. moist mucosa, sclera anicteric. Neck: Minimal JVD noted LUNGS: Rales bilateral bases (markedly improved). No wheezes. No accessory muscle use. HEART: RRR, normal S1 and S2 without murmur ABDOMEN: Soft, obese, nondistended, nontender, normoactive bowel sounds, no guarding, no masses. No hepatomegaly EXTREMITIES: 2+ DP pulses, warm, well-perfused. No cyanosis. 3+ peripheral edema to lower extremities (improved). Slight erythematous lower ext. with abrasion healing PSYCHIATRIC: Cooperative. Good eye contact. Appropriate mood and affect. SKIN: Warm, dry, no rashes or lesions noted Laboratory Results - last 24 hr 11/25/17 11/25/17 11/25/17 06:25 16:33 20:44 WBC RBC Hgb Hct MCV MCH MCHC RDW Plt Count MPV Sodium Potassium Chloride Carbon Dioxide Anion Gap BUN Creatinine POC Glucometer 186 276 Random Glucose Calcium Iron 31 L TIBC 431 Iron Saturation 7 L Digoxin Blood Type Antibody Screen 11/26/17 11/26/17 11/26/17 05:47 07:25 07:25 WBC RBC Hgb Hct MCV MCH MCHC RDW Plt Count MPV Sodium 136 Potassium 4.0 Chloride 98 Carbon Dioxide 30 Anion Gap 8 BUN 25 H Creatinine 1.3 POC Glucometer 218 Random Glucose 181 H D Calcium 8.2 L Iron TIBC Iron Saturation Digoxin 0.5817 L Blood Type A POSITIVE Antibody Screen Negative 11/26/17 11/26/17 07:28 11:48 WBC 9.5 RBC 3.34 L Hgb 8.8 L Hct 27.0 L MCV 80.7 MCH 26.3 MCHC 32.6 RDW 19.7 H Plt Count 180 MPV 8.9 Sodium Potassium Chloride Carbon Dioxide Anion Gap BUN Creatinine POC Glucometer 250 Random Glucose Calcium Iron TIBC Iron Saturation Digoxin Blood Type Antibody Screen Active Medications Generic Name Dose Route Start Last Admin Trade Name Rajesh PRN Reason Stop Dose Admin Amiodarone HCl 400 mg 11/25/17 10:40 11/26/17 09:32 Cordarone - PO 400 mg BID USHA Administration Atorvastatin Calcium 10 mg 11/23/17 22:00 11/25/17 22:26 Lipitor - PO 10 mg HS USHA Administration Carvedilol 25 mg 11/23/17 22:00 11/26/17 09:32 Coreg - PO 25 mg BID USHA Administration Digoxin 0.125 mg 11/24/17 10:00 11/26/17 09:32 Lanoxin - PO 0.125 mg DAILY USHA Administration Ferrous Sulfate 325 mg 11/25/17 10:15 11/26/17 09:32 Feosol - PO 325 mg DAILY USHA Administration Furosemide 80 mg 11/25/17 14:00 11/26/17 13:17 Lasix Injection - IVPUSH 80 mg BID@0600,1400 USHA Administration Insulin Aspart 1 vial 11/23/17 16:30 11/26/17 11:54 Novolog Vial Sliding Scale - SQ 4 units ACHS USHA Administration Protocol Pantoprazole Sodium 40 mg 11/24/17 10:00 11/26/17 09:32 Protonix - PO 40 mg DAILY USHA Administration Rivaroxaban 15 mg 11/24/17 18:00 11/25/17 18:21 Xarelto - PO 15 mg DAILY@1800 USHA Administration ASSESSMENT/PLAN: 1) Volume overload --Net negative 3.6L! --Dr. Horta on case --Continue Lasix 80mg IVP BID --Previous echo 10/15/17; see above --Cardiology on board --Strict I&Os --Daily weights 2) Syncope --2/2 to VFib episode and discharged AICD --No events since --Continue Amiodarone 400mg BID --Head Ct prior negative --Most recent echo 10/15/17 revealing EF 40-45% with RV dilation; no indication for echo --EKG unchanged from previous on November 02; continue telemetry monitoring 3) Microcytic anemia --Iron studies indicative of iron deficiency anemia --Ferrous sulfate 325mg to continue --Today h/h improved 4) Acute kidney injury --Cr 1.3 w/o uremia (downtrending slowly) --Most likely multifactorial with Torsemide and anemia --Expect to decline after PRBCs 5) Atrial fibrillation --Continue Digoxin 0.125mg; cardiology cleared level being okay --Continue Coreg 25mg PO BID --Currently rate controlled --Xarelto 15mg PO due to recurrent epistaxis episodes previously FEN: Fluids: Fluid restrict 1L Electrolyte abnormalities: None currently Nutrition: Sodium-controlled diet PPX: DVT - Already on xeralto 15mg qDaily GI - Protonix 40mg qDaily Dispo: Continue tele Case discussed with Dr. Monge and Dr. Rula Duckworth, DO - IM PGY-1 Visit type - Emergency Visit Emergency Visit: No - New Patient This patient is new to me today: No - Critical Care Critical Care patient: No
[2017-11-26 17:09] VITALS: BMI 42.5
[2017-11-26] MEDS: RIVAROXABAN 15 MG TABLET PO SCH (17:11)
--- NOTE | 2017-11-26 18:23 | PN ---
Teaching Attending Note Name of Resident: Alonzo Duckworth ATTENDING PHYSICIAN STATEMENT I saw and evaluated the patient. I reviewed the resident's note and discussed the case with the resident. I agree with the resident's findings and plan as documented. SUBJECTIVE: No fever or chills . has no SOB. LE edema is slightly better per pt OBJECTIVE: NAD, AAOx3. CV: irreg irreg. no MRG Lungs: CTAB. Ext: 3+ pitting edema on LE ASSESSMENT AND PLAN: 81 y/o man with h/o HTN, systolic heart failure , A fib, Dm, HLP, CONSTANTINO, thoracic aortic aneurysm, hypertension , recurrent admissions for epistaxis and anemia who presented after a syncopal episode . 1- Syncope: likely due to VF per ICD interrogation - cont Amiodarone. setting of ICD adjusted - cont tele 2- Anemia: due to recurrent epistaxis, can't r/o GI loss. no previous colonoscopy - iron studies indicate iron def anemia - PO iron - need colonoscopy as out pt - Received 2 units of RBCs 3- H/o Systolic heart failure with acute exacerbation - cont IV lasix . good response - cont coreg 4- A fib: cont coreg and xarelto 5- TAA: stable . f/u as out pt 6-DVT X : on xarelto HLOC
[2017-11-26] MEDS: ATORVASTATIN CA 10 MG TABLET (FP) PO SCH (21:13)
[2017-11-27] MEDS: FUROSEMIDE 40 MG/4 ML INJECTABLE VIAL IVPUSH SCH ×2 (05:40→14:37)
[2017-11-27] MEDS: INSULIN SLIDING SCALE (NOVOLOG) 1 VIAL SQ SCH ×4 (06:55→21:08)
--- NOTE | 2017-11-27 07:29 | PN ---
Physical Exam: SUBJECTIVE: No acute events overnight. Pt is curious about future medication changes today and explained that it will depend on his hospital course. Denies any complaints today and feels like his breathing has improved. OBJECTIVE: Vital Signs Period Temp Pulse Resp BP Sys/Lambert Pulse Ox Last 24 Hr 97.4 F-98.3 F 66-72 18-20 98-120/54-68 94-98 GENERAL: NAD, Awake, alert, and laying in bed HEENT: NC/AT, EOMI, ERIKA, pallor noted. moist mucosa, sclera anicteric. Neck: No JVD noted today LUNGS: Diminished breath sounds at bases without overt rales today. No wheezes. No accessory muscle use. HEART: RRR, normal S1 and S2 without murmur ABDOMEN: Soft, obese, nondistended, nontender, normoactive bowel sounds, no guarding, no masses. No hepatomegaly EXTREMITIES: 2+ DP pulses, warm, well-perfused. No cyanosis. 3+ peripheral edema to lower extremities (unchanged from previous day). PSYCHIATRIC: Cooperative. Good eye contact. Appropriate mood and affect. SKIN: Warm, dry, no rashes or lesions noted Laboratory Results - last 24 hr 11/23/17 11/26/17 11/26/17 12:05 07:25 07:25 WBC RBC Hgb Hct MCV MCH MCHC RDW Plt Count MPV Sodium 136 Potassium 4.0 Chloride 98 Carbon Dioxide 30 Anion Gap 8 BUN 25 H Creatinine 1.3 POC Glucometer Random Glucose 181 H D Calcium 8.2 L Digoxin 0.5817 L Blood Type A POSITIVE A POSITIVE Antibody Screen Negative Negative Crossmatch See Detail 11/26/17 11/26/17 11/26/17 07:28 11:48 16:58 WBC 9.5 RBC 3.34 L Hgb 8.8 L Hct 27.0 L MCV 80.7 MCH 26.3 MCHC 32.6 RDW 19.7 H Plt Count 180 MPV 8.9 Sodium Potassium Chloride Carbon Dioxide Anion Gap BUN Creatinine POC Glucometer 250 220 Random Glucose Calcium Digoxin Blood Type Antibody Screen Crossmatch 11/26/17 11/27/17 21:28 05:39 WBC RBC Hgb Hct MCV MCH MCHC RDW Plt Count MPV Sodium Potassium Chloride Carbon Dioxide Anion Gap BUN Creatinine POC Glucometer 190 217 Random Glucose Calcium Digoxin Blood Type Antibody Screen Crossmatch Active Medications Generic Name Dose Route Start Last Admin Trade Name Rajesh PRN Reason Stop Dose Admin Amiodarone HCl 400 mg 11/25/17 10:40 11/26/17 21:13 Cordarone - PO 400 mg BID USHA Administration Atorvastatin Calcium 10 mg 11/23/17 22:00 11/26/17 21:13 Lipitor - PO 10 mg HS USHA Administration Carvedilol 25 mg 11/23/17 22:00 11/26/17 21:13 Coreg - PO 25 mg BID USHA Administration Digoxin 0.125 mg 11/24/17 10:00 11/26/17 09:32 Lanoxin - PO 0.125 mg DAILY USHA Administration Ferrous Sulfate 325 mg 11/25/17 10:15 11/26/17 09:32 Feosol - PO 325 mg DAILY USHA Administration Furosemide 80 mg 11/25/17 14:00 11/27/17 05:40 Lasix Injection - IVPUSH 80 mg BID@0600,1400 USHA Administration Insulin Aspart 1 vial 11/23/17 16:30 11/27/17 06:55 Novolog Vial Sliding Scale - SQ 4 units ACHS USHA Administration Protocol Pantoprazole Sodium 40 mg 11/24/17 10:00 11/26/17 09:32 Protonix - PO 40 mg DAILY USHA Administration Rivaroxaban 15 mg 11/24/17 18:00 11/26/17 17:11 Xarelto - PO 15 mg DAILY@1800 USHA Administration ASSESSMENT/PLAN: 1) Volume overload --Net negative 930cc --Based upon physical exam still improving, but will most likely continue BID Lasix dosing today and may descalate later --Dr. Horta/Jonas on case --Previous echo 10/15/17; see above --Cardiology on board --Strict I&Os --Daily weights 2) Syncope --2/2 to VFib episode and discharged AICD --No events since --Continue Amiodarone 400mg BID --Head Ct prior negative --Most recent echo 10/15/17 revealing EF 40-45% with RV dilation; no indication for echo --EKG unchanged from previous on November 02; continue telemetry monitoring 3) Microcytic anemia --Iron studies indicative of iron deficiency anemia --Ferrous sulfate 325mg to continue --Continue h/h improvement 4) Acute kidney injury --Cr 1.4 w/o uremia --Most likely multifactorial with Lasix and 3rd spacing fluid 5) Atrial fibrillation --Continue Digoxin 0.125mg; cardiology cleared level being okay --Continue Coreg 25mg PO BID --Currently rate controlled --Xarelto 15mg PO due to recurrent epistaxis episodes previously FEN: Fluids: Fluid restrict 1L Electrolyte abnormalities: Kdur 20 for K to 4.0 Nutrition: Sodium-controlled diet PPX: DVT - Already on xeralto 15mg qDaily GI - Protonix 40mg qDaily Dispo: Continue tele Case discussed with Dr. Saleem Duckworth, DO - IM PGY-1 Visit type - Emergency Visit Emergency Visit: No - New Patient This patient is new to me today: No - Critical Care Critical Care patient: No
[2017-11-27 08:23] LABS: HEMATOCRIT 27.7 % (35.4-49); MCH 26.4 pg (25.7-33.7); MCHC 32.6 g/dl (32.0-35.9); MEAN CELL VOLUME 80.8 fl (80-96); MEAN PLT VOLUME 9.1 fl (7.5-11.1); PLATELET COUNT 168 K/MM3 (134-434); RBC 3.43 M/mm3 (4.00-5.60); RDW 20.4 % (11.9-15.9)
[2017-11-27 08:35] LABS: CHLORIDE 97 mmol/L (98-107); POTASSIUM 3.9 mmol/L (3.5-5.1); SODIUM 136 mmol/L (136-145)
[2017-11-27 09:08] LABS: ANION GAP 8 (8-16); BLOOD UREA NITROGEN 28 mg/dL (7-18); CO2 31 mmol/L (21-32); CREATININE 1.4 mg/dL (0.7-1.3); GLUCOSE,RANDOM 198 mg/dL (74-106)
[2017-11-27] MEDS: FERROUS SO4 325 MG TABLET (FP) PO SCH (09:17)
[2017-11-27] MEDS: DIGOXIN 0.125 MG TABLET (FP) PO SCH (09:18)
[2017-11-27] MEDS: PANTOPRAZOLE 40 MG TABLET (FP) PO SCH (09:18)
[2017-11-27] MEDS: AMIODARONE HCL 200 MG TABLET (FP) PO SCH ×2 (09:18→21:05)
[2017-11-27] MEDS: CARVEDILOL 25 MG TABLET (FP) PO SCH ×2 (09:18→21:05)
--- NOTE | 2017-11-27 09:58 | PN ---
Progress Note, Physician History of Present Illness: No events No complaints Tele reviewed: V-paced with intermittent PVCs and NSVT (5 beats at 08:30 this AM ) - Current Medication List Current Medications: Active Medications Amiodarone HCl (Cordarone -) 400 mg PO BID [facility] Last Admin: 11/27/17 09:18 Dose: 400 mg Atorvastatin Calcium (Lipitor -) 10 mg PO HS [facility] Last Admin: 11/26/17 21:13 Dose: 10 mg Carvedilol (Coreg -) 25 mg PO BID [facility] Last Admin: 11/27/17 09:18 Dose: 25 mg Digoxin (Lanoxin -) 0.125 mg PO DAILY [facility] Last Admin: 11/27/17 09:18 Dose: 0.125 mg Ferrous Sulfate (Feosol -) 325 mg PO DAILY [facility] Last Admin: 11/27/17 09:17 Dose: 325 mg Furosemide (Lasix Injection -) 80 mg IVPUSH BID@0600,1400 [facility] Last Admin: 11/27/17 05:40 Dose: 80 mg Insulin Aspart (Novolog Vial Sliding Scale -) 1 vial SQ [facility]; Protocol Last Admin: 11/27/17 06:55 Dose: 4 units Pantoprazole Sodium (Protonix -) 40 mg PO DAILY [facility] Last Admin: 11/27/17 09:18 Dose: 40 mg Rivaroxaban (Xarelto -) 15 mg PO DAILY@1800 [facility] Last Admin: 11/26/17 17:11 Dose: 15 mg - Objective Vital Signs: Vital Signs Temperature 97.6 F 11/27/17 05:44 Pulse Rate 70 11/27/17 09:18 Respiratory Rate 20 11/27/17 05:44 Blood Pressure 120/68 11/27/17 05:44 O2 Sat by Pulse Oximetry (%) 94 L 11/26/17 21:00 Constitutional: Yes: No Distress, Calm Eyes: Yes: WNL HENT: Yes: WNL Neck: Yes: WNL Cardiovascular: Yes: Regular Rate and Rhythm Respiratory: Yes: CTA Bilaterally Gastrointestinal: Yes: Normal Bowel Sounds Extremities: Yes: WNL Edema: Yes Edema: LLE: 2+, RLE: 2+ Labs: CBC, BMP 11/27/17 07:30 11/27/17 07:30 INR, PTT INR 1.51 (0.82-1.09) H 11/24/17 06:30 Assessment/Plan Syncope: -Loaded with amio 400 bid started 11/25. -Possible cause of VF is chf exacerbation and pt with significant le edema so started iv diuresis as well, monitoring daily wts, chem7 -11/27: Increased lower rate limit of ICD to VVI 70 (in short term, then 60 later on). Programming report in chart -No sustained arrhythmias overnight. Anemia: -HGB DOWN TO 6.0 DUE TO EPISTAXIS WHEN HERE LAST, UP TO 7S AFTER PRBC'S. -STABLE VS PRIOR. -11/27: Hgb 9 Persistent atrial fibrillation: -HR WELL CONTROLLED ON CARVEDILOL AND DIGOXIN. CONTINUE SAME. (DIG LEVEL GOOD) -RECENTLY S/P RECURRENT EPISODES OF EPISTAXIS (5X IN PAST 1 MONTH) S/P PACKING, MULT TRANSFUSIONS--RESOLVED AFTER XARELTO HELD X 4-5 DAYS. -PER RECENT D/W ENT (CARLOS): HAD VISIBLE BLEEDING VESSEL X 2 IN HOSPITAL-- CAUTERIZED ONCE, FAILED CAUTERY WHEN VERY BRISK BLEEDING IN ER. ON RECENT ENT EXAM LAST WEEK NO VISIBLE VESSEL TO CAUTERIZE LIKELY CULPRIT FOR BLEED. -XARELTO HELD TOTAL OF 7 DAYS THEN RESUMED AT 15 MG DOSE FOR NOW WHILE OBSERVE FOR BLEEDING. -HGB STABLE VS PRIOR--CONT AC DOING 11/27: Stable on Riveroxaban 15mg. No bleeding, Hgb stable Paroxysmal ventricular tachycardia: -MULT EPISODES ON ICD IN PAST INCL SHOCKED ONCE--? RAPID AFIB AND NOT TRUE VT, PER PREVIOUS REVIEW OF EGM'S WITH EP. -PREVIOUSLY WITH ONE EPISODE TRUE VT SUSPECTED ON ICD TRACINGS--ABORTED WITH ATP PACING, MULTIPLE NON-SUSTAINED EPISODES. -11/27: Stable now at VVI 70. Right ventricular cardiomyopathy: -ECHO 01/11 WITH RV DILATION AND PROBABLY MILD DYSFUNCTION, MODERATE DILATION/ DYSFUNCTION ON HOSPITAL STUDY 10/13. -SUSPECT UNDERLYING PULM HTN CLINICALLY, WITH MARKED PA DILATION ON CT--NOT DOCUMENTED ON ECHO. -CHF OPTIMIZATION DOING. -DECLINES CONSTANTINO [place] REPEATEDLY acute systolic congestive heart failure: -NONISCH CMP (CONSTANTINO? HTN? DM? TACHY-CMP?), WITH SEVERELY REDUCED LVEF 2012. -EF NORMALIZED ? DUE TO IMPROVED AFIB HR CONTROL (IMPROVED MED COMPLIANCE?), ? DUE TO COREG/GLORIA REGIMEN. -LAST ECHO WITH EF 40-45% (HOSPITAL STUDY 10/13), WITH CLINICAL CHF, DILATED IVC , DILATED/HYPOKINETIC RV. -SEEN 11/08 IN OFFICE WITH WT UP 21 LBS VS PRIOR DRY WT, INCR EDEMA OVER BASELINE. WAS CHANGED FROM LASIX 80 QD TO TORSEMIDE 100 QD AND -possible cause of VF is chf exacerbation and pt with significant le edema so started iv diuresis as well, monitor daily wts, chem7 11/27: Creat 1.4, K 3.9. Mag pending. Would replete K to K>4. Diabetes mellitus without complication: -ON ORALS; A1C 7'S LAST, STABLE (ARIC)
--- NOTE | 2017-11-27 10:26 | PN ---
Teaching Attending Note Name of Resident: Alonzo Duckworth ATTENDING PHYSICIAN STATEMENT I saw and evaluated the patient. I reviewed the resident's note and discussed the case with the resident. I agree with the resident's findings and plan as documented. SUBJECTIVE: No fever or chills . No cp or OSB OBJECTIVE: NAD, AAOx3. CV: irreg irreg. no MRG Lungs: CTAB. Ext: 3+ pitting edema on LE ASSESSMENT AND PLAN: 81 y/o man with h/o HTN, systolic heart failure , A fib, Dm, HLP, CONSTANTINO, thoracic aortic aneurysm, hypertension , recurrent admissions for epistaxis and anemia who presented after a syncopal episode. 1- Syncope: likely due to VF per ICD interrogation. - cont Amiodarone. setting of ICD adjusted - cont tele , no events over night 2- Anemia: due to recurrent epistaxis, can't r/o GI loss. no previous colonoscopy - iron studies indicate iron def anemia - PO iron - need colonoscopy as out pt - Received 2 units of RBCs. HB 9 today 3- H/o Systolic heart failure with acute exacerbation - cont IV lasix BID . - Kcl 4- A fib: cont coreg and xarelto 5- TAA: stable . f/u as out pt 6-DVT X : on xarelto HLOC
[2017-11-27] MEDS ORDERED: POTASSIUM CHLORIDE TABS 20 MEQ TABLET.ER (FP) PO ONE (13:30)
[2017-11-27] MEDS: POTASSIUM CHLORIDE TABS 20 MEQ TABLET.ER (FP) PO ONE ×2 (14:33→14:37)
[2017-11-27] MEDS ORDERED: PT OWN MED DRAWER 7, Y5N ONE (16:41)
[2017-11-27] MEDS: RIVAROXABAN 15 MG TABLET PO SCH (17:19)
[2017-11-27] MEDS: ATORVASTATIN CA 10 MG TABLET (FP) PO SCH (21:09)
[2017-11-28] MEDS ORDERED: INSULIN (NOVOLOG) ASPART 100 UNITS/ML 10ML VIAL ONE ×3 (05:29→21:26)
[2017-11-28 06:51] LABS: HEMATOCRIT 28.6 % (35.4-49); HEMOGLOBIN 9.3 GM/dL (11.7-16.9); MCH 26.3 pg (25.7-33.7); MCHC 32.6 g/dl (32.0-35.9); MEAN CELL VOLUME 80.7 fl (80-96); MEAN PLT VOLUME 8.8 fl (7.5-11.1); PLATELET COUNT 179 K/MM3 (134-434); RBC 3.55 M/mm3 (4.00-5.60); RDW 20.7 % (11.9-15.9); WHITE BLOOD COUNT 9.8 K/mm3 (4.0-10.0)
[2017-11-28] MEDS: FUROSEMIDE 40 MG/4 ML INJECTABLE VIAL IVPUSH SCH ×2 (06:54→14:33)
[2017-11-28] MEDS: INSULIN SLIDING SCALE (NOVOLOG) 1 VIAL SQ SCH ×4 (06:54→21:51)
[2017-11-28 07:27] LABS: CHLORIDE 99 mmol/L (98-107); SODIUM 137 mmol/L (136-145)
[2017-11-28 07:32] LABS: ANION GAP 9 (8-16); BLOOD UREA NITROGEN 32 mg/dL (7-18); CALCIUM 8.7 mg/dL (8.5-10.1); CO2 29 mmol/L (21-32); CREATININE 1.5 mg/dL (0.7-1.3); GLUCOSE,RANDOM 180 mg/dL (74-106); MAGNESIUM 2.2 mg/dL (1.8-2.4); PHOSPHOROUS 3.5 mg/dL (2.5-4.9)
--- NOTE | 2017-11-28 09:13 | PN ---
Progress Note, Physician History of Present Illness: Offers no cardiovascular complaints Tele reviewed: V-paced at 70/min. No VT/VF - Current Medication List Current Medications: Active Medications Amiodarone HCl (Cordarone -) 400 mg PO BID [facility] Last Admin: 11/27/17 21:05 Dose: 400 mg Atorvastatin Calcium (Lipitor -) 10 mg PO HS [facility] Last Admin: 11/27/17 21:09 Dose: 10 mg Carvedilol (Coreg -) 25 mg PO BID [facility] Last Admin: 11/27/17 21:05 Dose: 25 mg Digoxin (Lanoxin -) 0.125 mg PO DAILY [facility] Last Admin: 11/27/17 09:18 Dose: 0.125 mg Ferrous Sulfate (Feosol -) 325 mg PO DAILY [facility] Last Admin: 11/27/17 09:17 Dose: 325 mg Furosemide (Lasix Injection -) 80 mg IVPUSH BID@0600,1400 [facility] Last Admin: 11/28/17 06:54 Dose: 80 mg Insulin Aspart (Novolog Vial Sliding Scale -) 1 vial SQ [facility]; Protocol Last Admin: 11/28/17 06:54 Dose: 2 units Pantoprazole Sodium (Protonix -) 40 mg PO DAILY [facility] Last Admin: 11/27/17 09:18 Dose: 40 mg Rivaroxaban (Xarelto -) 15 mg PO DAILY@1800 [facility] Last Admin: 11/27/17 17:19 Dose: 15 mg - Objective Vital Signs: Vital Signs Temperature 97.6 F 11/28/17 06:20 Pulse Rate 70 11/28/17 06:20 Respiratory Rate 20 11/28/17 06:20 Blood Pressure 137/83 11/28/17 06:20 O2 Sat by Pulse Oximetry (%) 94 L 11/27/17 21:00 Constitutional: Yes: No Distress, Calm (Sitting on edge of bed) Eyes: Yes: WNL HENT: Yes: WNL Neck: Yes: WNL Cardiovascular: Yes: Regular Rate and Rhythm Respiratory: Yes: CTA Bilaterally Gastrointestinal: Yes: Normal Bowel Sounds Extremities: Yes: WNL Edema: Yes Edema: RUE: 2+, LLE: 2+ Labs: CBC, BMP 11/28/17 05:30 11/28/17 05:30 INR, PTT INR 1.51 (0.82-1.09) H 11/24/17 06:30 Assessment/Plan Syncope: -Loaded with amio 400 bid started 11/25. -Possible cause of VF is chf exacerbation and pt with significant le edema so started iv diuresis as well, monitoring daily wts, chem7 -11/27: Increased lower rate limit of ICD to VVI 70 (in short term, then 60 later on). Programming report in chart -No sustained arrhythmias overnight. -11/28: Stable, no arrhythmias on higher V-pacing. Anemia: -HGB DOWN TO 6.0 DUE TO EPISTAXIS WHEN HERE LAST, UP TO 7S AFTER PRBC'S. -STABLE VS PRIOR. -11/27: Hgb 9 -11/28: Hgb remains stable at 9.3 Persistent atrial fibrillation: -HR WELL CONTROLLED ON CARVEDILOL AND DIGOXIN. CONTINUE SAME. (DIG LEVEL GOOD) -RECENTLY S/P RECURRENT EPISODES OF EPISTAXIS (5X IN PAST 1 MONTH) S/P PACKING, MULT TRANSFUSIONS--RESOLVED AFTER XARELTO HELD X 4-5 DAYS. -PER RECENT D/W ENT (CARLOS): HAD VISIBLE BLEEDING VESSEL X 2 IN HOSPITAL-- CAUTERIZED ONCE, FAILED CAUTERY WHEN VERY BRISK BLEEDING IN ER. ON RECENT ENT EXAM LAST WEEK NO VISIBLE VESSEL TO CAUTERIZE LIKELY CULPRIT FOR BLEED. -XARELTO HELD TOTAL OF 7 DAYS THEN RESUMED AT 15 MG DOSE FOR NOW WHILE OBSERVE FOR BLEEDING. -HGB STABLE VS PRIOR--CONT AC DOING 11/27: Stable on Riveroxaban 15mg. No bleeding, Hgb stable 11/28: Stable - Continue Riveroxaban 15mg. Paroxysmal ventricular tachycardia: -MULT EPISODES ON ICD IN PAST INCL SHOCKED ONCE--? RAPID AFIB AND NOT TRUE VT, PER PREVIOUS REVIEW OF EGM'S WITH EP. -PREVIOUSLY WITH ONE EPISODE TRUE VT SUSPECTED ON ICD TRACINGS--ABORTED WITH ATP PACING, MULTIPLE NON-SUSTAINED EPISODES. -11/27: Stable now at VVI 70. -11/28: Stable, no arrhythmias on higher V-pacing. Right ventricular cardiomyopathy: -ECHO 01/11 WITH RV DILATION AND PROBABLY MILD DYSFUNCTION, MODERATE DILATION/ DYSFUNCTION ON HOSPITAL STUDY 10/13. -SUSPECT UNDERLYING PULM HTN CLINICALLY, WITH MARKED PA DILATION ON CT--NOT DOCUMENTED ON ECHO. -CHF OPTIMIZATION DOING. -DECLINES CONSTANTINO [place] REPEATEDLY acute systolic congestive heart failure: -NONISCH CMP (CONSTANTINO? HTN? DM? TACHY-CMP?), WITH SEVERELY REDUCED LVEF 2012. -EF NORMALIZED ? DUE TO IMPROVED AFIB HR CONTROL (IMPROVED MED COMPLIANCE?), ? DUE TO COREG/GLORIA REGIMEN. -LAST ECHO WITH EF 40-45% (HOSPITAL STUDY 10/13), WITH CLINICAL CHF, DILATED IVC , DILATED/HYPOKINETIC RV. -SEEN 11/08 IN OFFICE WITH WT UP 21 LBS VS PRIOR DRY WT, INCR EDEMA OVER BASELINE. WAS CHANGED FROM LASIX 80 QD TO TORSEMIDE 100 QD AND -possible cause of VF is chf exacerbation and pt with significant le edema so started iv diuresis as well, monitor daily wts, chem7 11/27: Creat 1.4, K 3.9. Mag pending. Would replete K to K>4. 11/28: Creat 1.5, K 4, Mg 2.2. Will check Dig level. Remains volume overloaded on exam. Continue diuresis. Diabetes mellitus without complication: -ON ORALS; A1C 7'S LAST, STABLE (ARIC)
[2017-11-28] MEDS: CARVEDILOL 25 MG TABLET (FP) PO SCH ×2 (09:47→21:47)
[2017-11-28] MEDS: PANTOPRAZOLE 40 MG TABLET (FP) PO SCH (09:47)
[2017-11-28] MEDS: DIGOXIN 0.125 MG TABLET (FP) PO SCH (09:47)
[2017-11-28] MEDS: FERROUS SO4 325 MG TABLET (FP) PO SCH (09:47)
[2017-11-28] MEDS: AMIODARONE HCL 200 MG TABLET (FP) PO SCH ×2 (09:48→21:47)
[2017-11-28] MEDS ORDERED: PT OWN MED DRAWER 7, Y5N ONE ×2 (16:53→21:28)
--- NOTE | 2017-11-28 17:02 | PN ---
Progress Note (short form) - Note Progress Note: Subjective: no fever or chills, nO SOB , LE edema is better . Objective: Vital Signs: Last Vital Signs Temp Pulse Resp BP Pulse Ox 97.7 F 70 18 107/60 94 L 11/28/17 14:00 11/28/17 14:00 11/28/17 14:00 11/28/17 14:00 11/28/17 10:00 Laboratory Results - last 24 hr 11/27/17 11/27/17 11/28/17 17:18 21:07 05:30 WBC 9.8 RBC 3.55 L Hgb 9.3 L Hct 28.6 L MCV 80.7 MCH 26.3 MCHC 32.6 RDW 20.7 H Plt Count 179 MPV 8.8 Sodium Potassium Chloride Carbon Dioxide Anion Gap BUN Creatinine POC Glucometer 231 260 Random Glucose Calcium Phosphorus Magnesium 11/28/17 11/28/17 11/28/17 05:30 05:35 11:16 WBC RBC Hgb Hct MCV MCH MCHC RDW Plt Count MPV Sodium 137 Potassium 4.0 Chloride 99 Carbon Dioxide 29 Anion Gap 9 BUN 32 H Creatinine 1.5 H POC Glucometer 187 283 Random Glucose 180 H Calcium 8.7 Phosphorus 3.5 Magnesium 2.2 Intake & Output 11/25/17 11/26/17 11/27/17 11/28/17 23:59 23:59 23:59 23:59 Intake Total 10 70 220 Output Total 3800 1919 685 2975 Balance -3790 -930 -680 -1850 Weight 314 lb 8 oz 314 lb 314 lb 3.2 oz 311 lb Physical Exam: NAD, AAOx3. CV: irreg irreg. no MRG Lungs: CTAB. Ext: 3+ pitting edema on LE ASSESSMENT AND PLAN: 81 y/o man with h/o HTN, systolic heart failure , A fib, Dm, HLP, CONSTANTINO, thoracic aortic aneurysm, hypertension , recurrent admissions for epistaxis and anemia who presented after a syncopal episode. 1- Syncope: likely due to VF per ICD interrogation. - cont Amiodarone 400 BID . at some point dose will be decreased. - cont tele 2- Iron def Anemia: due to recurrent epistaxis, can't r/o GI loss. no previous colonoscopy - PO iron - need colonoscopy as out pt 3- H/o Systolic heart failure with acute exacerbation - cont IV lasix BID . - monitor renal function , cr 1.5 today 4- A fib: cont coreg and xarelto 5- TAA: stable . f/u as out pt 6-DVT X : on xarelto HLOC Visit type - Emergency Visit Emergency Visit: Yes ED Registration Date: 11/23/17 Care time: The patient presented to the Emergency Department on the above date and was hospitalized for further evaluation of their emergent condition. - New Patient This patient is new to me today: No - Critical Care Critical Care patient: No
[2017-11-28] MEDS: RIVAROXABAN 15 MG TABLET PO SCH (17:12)
[2017-11-28] MEDS: ATORVASTATIN CA 10 MG TABLET (FP) PO SCH (21:47)
[2017-11-29] MEDS: FUROSEMIDE 40 MG/4 ML INJECTABLE VIAL IVPUSH SCH ×2 (05:49→13:11)
[2017-11-29] MEDS: INSULIN SLIDING SCALE (NOVOLOG) 1 VIAL SQ SCH ×4 (06:08→21:03)
[2017-11-29 07:32] LABS: ANION GAP 10 (8-16); BLOOD UREA NITROGEN 30 mg/dL (7-18); CALCIUM 8.7 mg/dL (8.5-10.1); CHLORIDE 98 mmol/L (98-107); CO2 29 mmol/L (21-32); CREATININE 1.5 mg/dL (0.7-1.3); GLUCOSE,RANDOM 177 mg/dL (74-106); POTASSIUM 3.8 mmol/L (3.5-5.1); SODIUM 137 mmol/L (136-145)
--- NOTE | 2017-11-29 08:56 | PN ---
Progress Note, Physician Chief Complaint: Vfib History of Present Illness: no ICD shocks no sob legs still swollen, he thinks better no cp, palpit no cigs - Current Medication List Current Medications: Active Medications Amiodarone HCl (Cordarone -) 400 mg PO BID [facility] Last Admin: 11/28/17 21:47 Dose: 400 mg Atorvastatin Calcium (Lipitor -) 10 mg PO HS [facility] Last Admin: 11/28/17 21:47 Dose: 10 mg Carvedilol (Coreg -) 25 mg PO BID [facility] Last Admin: 11/28/17 21:47 Dose: 25 mg Digoxin (Lanoxin -) 0.125 mg PO DAILY [facility] Last Admin: 11/28/17 09:47 Dose: 0.125 mg Ferrous Sulfate (Feosol -) 325 mg PO DAILY [facility] Last Admin: 11/28/17 09:47 Dose: 325 mg Furosemide (Lasix Injection -) 80 mg IVPUSH BID@0600,1400 [facility] Last Admin: 11/29/17 05:49 Dose: 80 mg Insulin Aspart (Novolog Vial Sliding Scale -) 1 vial SQ [facility]; Protocol Last Admin: 11/29/17 06:08 Dose: 2 units Pantoprazole Sodium (Protonix -) 40 mg PO DAILY [facility] Last Admin: 11/28/17 09:47 Dose: 40 mg Rivaroxaban (Xarelto -) 15 mg PO DAILY@1800 [facility] Last Admin: 11/28/17 17:12 Dose: 15 mg - Objective Vital Signs: Vital Signs Temperature 97.9 F 11/29/17 05:47 Pulse Rate 71 11/29/17 05:47 Respiratory Rate 16 11/29/17 05:47 Blood Pressure 121/65 11/29/17 05:47 O2 Sat by Pulse Oximetry (%) 91 L 11/28/17 21:00 Constitutional: Yes: No Distress, Calm Eyes: No: Sclera Icterus HENT: No: Nasal Congestion Cardiovascular: Yes: Regular Rate and Rhythm, S1, S2, Other (PMI non diplaced). No: Gallop, Murmur Respiratory: Yes: CTA Bilaterally. No: Accessory Muscle Use, Rales, Wheezes Gastrointestinal: Yes: Normal Bowel Sounds, Soft. No: Tenderness Musculoskeletal: Yes: Other (No kyphosis) Extremities: No: Cold Edema: Yes (3+ pretib) Integumentary: No: Jaundice Neurological: Yes: Alert, Oriented (x3) Psychiatric: No: Agitated Labs: CBC, BMP 11/28/17 05:30 11/29/17 06:00 INR, PTT INR 1.51 (0.82-1.09) H 11/24/17 06:30 Assessment/Plan CXR: L base consolidation vs atelectasis vs effusion CT head: no acute pathology or bleed CT chest: 5.0 cm ascending aorta, 4.2 cm arch--stable vs 01/11. small R effusion tele: afib, V-paced at 70 throughout. VT x 6beats Assessment/Plan Syncope, VT/VF: -suspicious timing of episode related to VF with shock on DOA (strips reviewed by EP who agreed VF was likely rhythm) -per EP rec, loaded with amio 400 bid (started 11/25). -EP also rec'd increasing lower rate limit of ICD to 70 (in short term, then 60 later on) to help prevent recurrent VF--done here -HF optimizations as doing -check baseline TSH (for amio monitoring) -keep K/Mg > 4.0/2.0, respectively acute systolic congestive heart failure: -NONISCH CMP (CONSTANTINO? HTN? DM? TACHY-CMP?), WITH SEVERELY REDUCED LVEF 2012. -EF NORMALIZED ? DUE TO IMPROVED AFIB HR CONTROL (IMPROVED MED COMPLIANCE?), ? DUE TO COREG/GLORIA REGIMEN. -LAST ECHO WITH EF 40-45% (HOSPITAL STUDY 10/13), WITH CLINICAL CHF, DILATED IVC , DILATED/HYPOKINETIC RV. -SEEN 11/08 IN OFFICE WITH WT UP 21 LBS VS PRIOR DRY WT, INCR EDEMA OVER BASELINE. WAS CHANGED FROM LASIX 80 QD TO TORSEMIDE 100 QD AND -BNP 1400 (prior range 7780-0236). CT chest minimal fluid (small R effusion). -11/29: receiving lasix 80 iv bid here. remains with signif LE edema. bun/creat overall stable vs DOA. suspect he is still volume overloaded though no sob at his low activity level. -pt recently failed attempt at po diuresis with torsemide hi dose (100mg qd) as outpt. would like to continue IV diuresis, however if this can be arranged as outpt ([facility]), then he can safely go home and will do lasix 100mg IVP daily at home for several days and see me in office within 1 week. Anemia: -HGB DOWN TO 6.0 DUE TO EPISTAXIS WHEN HERE LAST, UP TO 7S AFTER PRBC'S. -transfused here up to 9s, stable Persistent atrial fibrillation: -HR WELL CONTROLLED ON CARVEDILOL AND DIGOXIN. CONTINUE SAME. (DIG LEVEL GOOD) -close monitoring of dig level on amio now -RECENTLY WITH MULT EPISODES OF EPISTAXIS (5X IN PAST 1 MONTH) S/P PACKING, MULT TRANSFUSIONS--RESOLVED AFTER XARELTO HELD X 4-5 DAYS. -PER RECENT D/W ENT (CARLOS), CURRENTLY NO VISIBLE VESSEL TO CAUTERIZE -XARELTO RESTARTED AT 15MG QD DOSE FOR NOW--NO BLEEDING THUS FAR Right ventricular cardiomyopathy: -ECHO 01/11 WITH RV DILATION AND PROBABLY MILD DYSFUNCTION, MODERATE DILATION/ DYSFUNCTION ON HOSPITAL STUDY 10/13. -SUSPECT UNDERLYING PULM HTN CLINICALLY, WITH MARKED PA DILATION ON CT (? echo missing peak PASP due to incomplete TR envelope). -CHF OPTIMIZATION DOING. -DECLINES CONSTANTINO [place] REPEATEDLY Aneurysm of the ascending aorta: -stable size on ct here -PER PRIOR CTS CONSULT (LEANDRO): YEARLY IMAGING (CT CHEST), WITH CONSIDERATION OF SURGERY IF 6 CM OR ABOVE (HIGHER THRESHOLD TO OPERATE, GIVEN PT'S INCR'D SURGICAL RISK); -BP CONTROL -size stable on CT done here Morbid obesity, Obstructive sleep apnea: -SEVERE CONSTANTINO. REFUSES CPAP OR ORAL APPLIANCE REPEATEDLY OUTPT Pure hypercholesterolemia: -PRIMARY PREVN, DM. -ON ATORVA [address] CORBETT PMD--ROUTINE LIPID F/U WITH PMD DOING Diabetes mellitus without complication: -ON ORALS; A1C 7'S LAST, STABLE (ARIC)
[2017-11-29] MEDS: CARVEDILOL 25 MG TABLET (FP) PO SCH ×2 (09:21→21:03)
[2017-11-29] MEDS: FERROUS SO4 325 MG TABLET (FP) PO SCH (09:21)
[2017-11-29] MEDS: PANTOPRAZOLE 40 MG TABLET (FP) PO SCH (09:21)
[2017-11-29] MEDS: AMIODARONE HCL 200 MG TABLET (FP) PO SCH ×2 (09:21→21:03)
[2017-11-29] MEDS: DIGOXIN 0.125 MG TABLET (FP) PO SCH (09:22)
[2017-11-29] MEDS: POTASSIUM CHLORIDE ORAL LIQUID 20 MEQ/15 ML PO SCH ×2 (11:16→21:04)
[2017-11-29] MEDS ORDERED: INSULIN (NOVOLOG) ASPART 100 UNITS/ML 10ML VIAL ONE ×2 (11:19→11:27)
--- NOTE | 2017-11-29 13:00 | PN ---
Teaching Attending Note Name of Resident: Alonzo Duckworth ATTENDING PHYSICIAN STATEMENT I saw and evaluated the patient. I reviewed the resident's note and discussed the case with the resident. I agree with the resident's findings and plan as documented. SUBJECTIVE: no fever or chills . NO SOB. LE edema is better. walking with no SOB OBJECTIVE: NAD, AAOx3. CV: irreg irreg. no MRG Lungs: CTAB. Ext: 2+ pitting edema on LE. ASSESSMENT AND PLAN: 81 y/o man with h/o HTN, systolic heart failure , A fib, Dm, HLP, CONSTANTINO, thoracic aortic aneurysm, hypertension , recurrent admissions for epistaxis and anemia who presented after a syncopal episode. 1- Syncope: likely due to VF per ICD interrogation. - cont Amiodarone 400 BID . at some point dose will be decreased. - cont tele 2- Iron def Anemia: due to recurrent epistaxis, can't r/o GI loss. no previous colonoscopy - PO iron - need colonoscopy as out pt 3- H/o Systolic heart failure with acute exacerbation - cont IV lasix BID . - monitor renal function , cr remains 1.5 today 4- A fib: cont coreg and xarelto 5- TAA: stable . f/u as out pt 6-DVT X : on xarelto HLOC
[2017-11-29] MEDS ORDERED: PT OWN MED DRAWER 7, Y5N ONE (18:50)
[2017-11-29] MEDS: RIVAROXABAN 15 MG TABLET PO SCH (19:01)
--- NOTE | 2017-11-29 20:36 | PN ---
Physical Exam: SUBJECTIVE: No acute events overnight. No complaints today. Wants to go home. OBJECTIVE: Vital Signs Period Temp Pulse Resp BP Sys/Lambert Pulse Ox Last 24 Hr 97.5 F-98.4 F 69-71 16-20 86-151/50-80 91-91 GENERAL: NAD, Awake, alert, and laying in bed HEENT: NC/AT, EOMI, ERIKA. moist mucosa, sclera anicteric. Neck: No JVD noted LUNGS: Diminished breath sounds at bases b/l. No wheezes. No accessory muscle use. HEART: RRR, normal S1 and S2 without murmur ABDOMEN: Soft, obese, nondistended, nontender, normoactive bowel sounds, no guarding, no masses. No hepatomegaly EXTREMITIES: 2+ DP pulses, warm, well-perfused. No cyanosis. 1+ peripheral edema to knee PSYCHIATRIC: Cooperative. Good eye contact. Appropriate mood and affect. SKIN: Warm, dry, no rashes or lesions noted Laboratory Results - last 24 hr 11/28/17 11/29/17 11/29/17 21:46 05:55 06:00 Sodium 137 Potassium 3.8 Chloride 98 Carbon Dioxide 29 Anion Gap 10 BUN 30 H Creatinine 1.5 H POC Glucometer 206 197 Random Glucose 177 H Calcium 8.7 Digoxin 0.75 L 11/29/17 11/29/17 11:24 17:15 Sodium Potassium Chloride Carbon Dioxide Anion Gap BUN Creatinine POC Glucometer 294 368 Random Glucose Calcium Digoxin Active Medications Generic Name Dose Route Start Last Admin Trade Name Freq PRN Reason Stop Dose Admin Amiodarone HCl 400 mg 11/25/17 10:40 11/29/17 09:21 Cordarone - PO 400 mg BID [facility] Administration Atorvastatin Calcium 10 mg 11/23/17 22:00 11/28/17 21:47 Lipitor - PO 10 mg HS [facility] Administration Carvedilol 25 mg 11/23/17 22:00 11/29/17 09:21 Coreg - PO 25 mg BID [facility] Administration Ferrous Sulfate 325 mg 11/25/17 10:15 11/29/17 09:21 Feosol - PO 325 mg DAILY [facility] Administration Furosemide 80 mg 11/25/17 14:00 11/29/17 13:11 Lasix Injection - IVPUSH 80 mg BID@0600,1400 [facility] Administration Insulin Aspart 1 vial 11/23/17 16:30 11/29/17 17:30 Novolog Vial Sliding Scale - SQ 10 units ACHS [facility] Administration Protocol Pantoprazole Sodium 40 mg 11/24/17 10:00 11/29/17 09:21 Protonix - PO 40 mg DAILY [facility] Administration Potassium Chloride 20 meq 11/29/17 10:00 11/29/17 11:16 Potassium Chloride Oral Liquid PO 20 meq BID [facility] Administration Rivaroxaban 15 mg 11/24/17 18:00 11/29/17 19:01 Xarelto - PO 15 mg DAILY@1800 [facility] Administration ASSESSMENT/PLAN: 1) Volume overload --Dr. Horta/Jonas on case --Would like to continue IV diuresis --Can continue Lasix 100mg IVP qdaily for the next 3 days if considering discharge --Strict I&Os --Daily weights 2) Syncope --22 to VFib episode and discharged AICD --No events since --Continue Amiodarone 400mg BID --Head Ct prior negative --Most recent echo 10/15/17 revealing EF 40-45% with RV dilation; no indication for echo --EKG unchanged from previous on November 02; continue telemetry monitoring 3) Microcytic anemia --Iron studies indicative of iron deficiency anemia --Ferrous sulfate 325mg to continue; will need to continue supplementation on an outpatient basis --Continue h/h improvement --Will need Colonoscopy on an outpatient basis 4) Acute kidney injury --Cr 1.5 w/o uremia 5) Atrial fibrillation --Can discontinue Digoxin while on Amiodarone --Continue Amiodarone 400mg BID PO --Continue Coreg 25mg PO BID --Currently rate controlled --Xarelto 15mg PO due to recurrent epistaxis episodes previously FEN: Fluids: Fluid restrict 1L Electrolyte abnormalities: None today Nutrition: Sodium-controlled diet PPX: DVT - Already on xeralto 15mg qDaily GI - Protonix 40mg qDaily Dispo: D/C pending Case discussed with Dr. Saleem Duckworth, DO - IM PGY-1 Visit type - Emergency Visit Emergency Visit: No - New Patient This patient is new to me today: No - Critical Care Critical Care patient: No
[2017-11-29] MEDS: ATORVASTATIN CA 10 MG TABLET (FP) PO SCH (21:03)
[2017-11-30] MEDS: INSULIN SLIDING SCALE (NOVOLOG) 1 VIAL SQ SCH ×4 (06:01→17:11)
[2017-11-30] MEDS: FUROSEMIDE 40 MG/4 ML INJECTABLE VIAL IVPUSH SCH (06:01)
[2017-11-30] MEDS ORDERED: FUROSEMIDE 40 MG/4 ML INJECTABLE VIAL IVPUSH ONE ×2 (07:34→15:41)
[2017-11-30 08:07] LABS: ANION GAP 9 (8-16); CALCIUM 8.5 mg/dL (8.5-10.1); CHLORIDE 98 mmol/L (98-107); CO2 30 mmol/L (21-32); POTASSIUM 3.9 mmol/L (3.5-5.1); SODIUM 137 mmol/L (136-145)
[2017-11-30 08:21] LABS: BLOOD UREA NITROGEN 32 mg/dL (7-18); CREATININE 1.5 mg/dL (0.7-1.3); GLUCOSE,RANDOM 184 mg/dL (74-106)
[2017-11-30] MEDS: POTASSIUM CHLORIDE ORAL LIQUID 20 MEQ/15 ML PO SCH (09:35)
[2017-11-30] MEDS: AMIODARONE HCL 200 MG TABLET (FP) PO SCH (09:36)
[2017-11-30] MEDS: CARVEDILOL 25 MG TABLET (FP) PO SCH (09:36)
[2017-11-30] MEDS: FERROUS SO4 325 MG TABLET (FP) PO SCH (09:36)
[2017-11-30] MEDS: PANTOPRAZOLE 40 MG TABLET (FP) PO SCH (09:36)
--- NOTE | 2017-11-30 13:18 | PN ---
Progress Note (short form) - Note Progress Note: Chief Complaint: Vfib History of Present Illness: digoxin stopped yesterday. lasix 80 iv bid changed to 100 iv daily for tomorrow in anticipation of possible d/c home and outpatient IV lasix administration. However, per report, may not be able to get outpatient iv lasix. no ICD shocks no sob legs still swollen, he thinks better no cp, palpit, dizziness. no cigs Current Medications Amiodarone HCl (Cordarone -) 400 mg PO BID [facility] Last Admin: 11/30/17 09:36 Dose: 400 mg Atorvastatin Calcium (Lipitor -) 10 mg PO HS [facility] Last Admin: 11/29/17 21:03 Dose: 10 mg Carvedilol (Coreg -) 25 mg PO BID [facility] Last Admin: 11/30/17 09:36 Dose: 25 mg Ferrous Sulfate (Feosol -) 325 mg PO DAILY [facility] Last Admin: 11/30/17 09:36 Dose: 325 mg Furosemide (Lasix Injection -) 100 mg IVPB DAILY [facility] Insulin Aspart (Novolog Vial Sliding Scale -) 1 vial SQ [facility]; Protocol Last Admin: 11/30/17 11:59 Dose: 6 units Pantoprazole Sodium (Protonix -) 40 mg PO DAILY [facility] Last Admin: 11/30/17 09:36 Dose: 40 mg Potassium Chloride (Potassium Chloride Oral Liquid) 20 meq PO BID [facility] Last Admin: 11/30/17 09:35 Dose: 20 meq Rivaroxaban (Xarelto -) 15 mg PO DAILY@1800 [facility] Last Admin: 11/29/17 19:01 Dose: 15 mg - Objective Vital Signs: Vital Signs - 24 hr 11/29/17 11/29/17 11/29/17 14:00 18:11 21:00 Temperature 97.6 F 98.2 F Pulse Rate 70 69 Respiratory 20 18 18 Rate Blood Pressure 86/50 125/71 O2 Sat by Pulse 93 L Oximetry (%) 11/29/17 11/30/17 11/30/17 22:00 02:00 06:00 Temperature 98.1 F 97.9 F 98.0 F Pulse Rate 70 71 69 Respiratory 18 18 18 Rate Blood Pressure 120/70 121/76 102/49 O2 Sat by Pulse Oximetry (%) 11/30/17 10:00 Temperature 98.6 F Pulse Rate 69 Respiratory 18 Rate Blood Pressure 102/49 O2 Sat by Pulse 93 L Oximetry (%) Intake & Output 11/28/17 11/29/17 11/30/17 12/01/17 07:59 07:59 07:59 07:59 Intake Total 096 258 3278 360 Output Total 1400 2650 2200 Balance -1280 -2350 -1160 360 Weight 311 lb 308 lb 310 lb 8 oz Constitutional: Yes: No Distress, Calm. disheveled Eyes: No: Sclera Icterus HENT: No: Nasal Congestion Cardiovascular: Yes: Regular Rate and Rhythm, S1, S2, Other (PMI non diplaced). No: Gallop, Murmur Respiratory: Yes: CTA Bilaterally. No: Accessory Muscle Use, Rales, Wheezes Gastrointestinal: Yes: Normal Bowel Sounds, Soft. No: Tenderness Musculoskeletal: Yes: Other (No kyphosis) Extremities: No: Cold Edema: Yes (1-2+ pretib) Integumentary: No: Jaundice Neurological: Yes: Alert, Oriented (x3) Psychiatric: No: Agitated Labs: CBC, BMP 11/28/17 05:30 11/30/17 06:40 tele: demand V-pacing with intermittent breakthrough afib. CXR: L base consolidation vs atelectasis vs effusion CT head: no acute pathology or bleed CT chest: 5.0 cm ascending aorta, 4.2 cm arch--stable vs 01/11. small R effusion Echo 09/2017: LVEF mildly reduced, 40-45%. RV mod dilated/mod hypo. L/MARLYS. valves WNL. dilated IVC Assessment/Plan 82 m hx syst chf (bi-v failure, NICM), icd, afib, htn, hld, dm here with VF/ syncope. Syncope, VT/VF: -suspicious timing of episode related to VF with shock on DOA (strips reviewed by EP who agreed VF was likely rhythm) -per EP rec, loaded with amio 400 bid (started 11/25). -EP also rec'd increasing lower rate limit of ICD to 70 (in short term, then 60 later on) to help prevent recurrent VF--done here -HF optimizations as doing -TSH wnl. tbili slightly up, will recheck lfts. (for amio monitoring) -keep K/Mg > 4.0/2.0, respectively. monitor closely on standing kcl 20 bid. acute systolic congestive heart failure: -NONISCH CMP (CONSTANTINO? HTN? DM? TACHY-CMP?), WITH SEVERELY REDUCED LVEF 2012. -EF NORMALIZED ? DUE TO IMPROVED AFIB HR CONTROL (IMPROVED MED COMPLIANCE?), ? DUE TO COREG/GLORIA REGIMEN. -LAST ECHO WITH EF 40-45% (HOSPITAL STUDY 10/13), WITH CLINICAL CHF, DILATED IVC , DILATED/HYPOKINETIC RV. -SEEN 11/08 IN OFFICE WITH WT UP 21 LBS VS PRIOR DRY WT, INCR EDEMA OVER BASELINE. WAS CHANGED FROM LASIX 80 QD TO TORSEMIDE 100 QD. -BNP 1400 (prior range 4207-5602). CT chest minimal fluid (small R effusion). -11/29: receiving lasix 80 iv bid here. remains with signif LE edema. bun/creat overall stable vs DOA. suspect he is still volume overloaded though no sob at his low activity level. 314 lbs on admit here, down to 308 with lasix 80 iv bid. previous visits since 04/13 have been 288-294 lbs. therefore suspect he is still at least 10 lbs fluid overloaded. pt recently failed attempt at po diuresis with torsemide hi dose (100mg qd) as outpt. would like to continue IV diuresis, however if this can be arranged as outpt ([facility] infusion [facility]), then he can safely go home and will do lasix 100mg IVP daily at home for several days and see me in office within 1 week. - 11/30 not eligible for outpatient IV lasix. Resuming 80 iv bid. Con't bb. recently enalapril d/c b/c of concern for angioedema. If true angioedema will need to start hydral/imdur in replacement once bp stabilizes. Anemia: -HGB DOWN TO 6.0 DUE TO EPISTAXIS WHEN HERE LAST, UP TO 7S AFTER PRBC'S. -transfused here up to 9s, stable Persistent atrial fibrillation: -RECENTLY WITH MULT EPISODES OF EPISTAXIS (5X IN PAST 1 MONTH) S/P PACKING, MULT TRANSFUSIONS--RESOLVED AFTER XARELTO HELD X 4-5 DAYS. PER RECENT D/W ENT ( CARLOS), CURRENTLY NO VISIBLE VESSEL TO CAUTERIZE -XARELTO RESTARTED AT 15MG QD DOSE FOR NOW--NO BLEEDING THUS FAR -HR WELL CONTROLLED ON CARVEDILOL AND DIGOXIN. CONTINUE SAME. (DIG LEVEL GOOD) - 11/30: dig d/c 11/29, will resume today. close monitoring of dig level on amio now. Right ventricular cardiomyopathy: -ECHO 01/11 WITH RV DILATION AND PROBABLY MILD DYSFUNCTION, MODERATE DILATION/ DYSFUNCTION ON HOSPITAL STUDY 10/13. -SUSPECT UNDERLYING PULM HTN CLINICALLY, WITH MARKED PA DILATION ON CT (? echo missing peak PASP due to incomplete TR envelope). -CHF OPTIMIZATION DOING. -DECLINES CONSTANTINO TX REPEATEDLY Aneurysm of the ascending aorta: -stable size on ct here -PER PRIOR CTS CONSULT (LEANDRO): YEARLY IMAGING (CT CHEST), WITH CONSIDERATION OF SURGERY IF 6 CM OR ABOVE (HIGHER THRESHOLD TO OPERATE, GIVEN PT'S INCR'D SURGICAL RISK); -BP CONTROL -size stable on CT done here Morbid obesity, Obstructive sleep apnea: -SEVERE CONSTANTINO. REFUSES CPAP OR ORAL APPLIANCE REPEATEDLY OUTPT Pure hypercholesterolemia: -PRIMARY PREVN, DM. -ON ATORVA [address] CORBETT PMD--ROUTINE LIPID F/U WITH PMD DOING Diabetes mellitus without complication: -ON ORALS; A1C 7'S LAST, STABLE (ARIC)
--- NOTE | 2017-11-30 13:22 | PN ---
Physical Exam: SUBJECTIVE: Patient seen and examined OBJECTIVE: Vital Signs Period Temp Pulse Resp BP Sys/Lambert Pulse Ox Last 24 Hr 97.6 F-98.6 F 69-71 18-20 86-125/49-76 93-93 GENERAL: The patient is awake, alert, and fully oriented, in no acute distress. HEAD: Normal with no signs of trauma. EYES: PERRL, extraocular movements intact, sclera anicteric, conjunctiva clear. No ptosis. ENT: Ears normal, nares patent, oropharynx clear without exudates, moist mucous membranes. NECK: Trachea midline, full range of motion, supple. LUNGS: Breath sounds equal, clear to auscultation bilaterally, no wheezes, no crackles, no accessory muscle use. HEART: Regular rate and rhythm, S1, S2 without murmur, rub or gallop. ABDOMEN: Soft, nontender, nondistended, normoactive bowel sounds, no guarding, no rebound, no hepatosplenomegaly, no masses. EXTREMITIES: 2+ pulses, warm, well-perfused, no edema. NEUROLOGICAL: Cranial nerves II through XII grossly intact. Normal speech, gait not observed. PSYCH: Normal mood, normal affect. SKIN: Warm, dry, normal turgor, no rashes or lesions noted Laboratory Results - last 24 hr 11/29/17 11/29/17 11/30/17 17:15 21:01 05:59 Sodium Potassium Chloride Carbon Dioxide Anion Gap BUN Creatinine POC Glucometer 368 269 224 Random Glucose Calcium TSH 11/30/17 11/30/17 06:40 11:54 Sodium 137 Potassium 3.9 Chloride 98 Carbon Dioxide 30 Anion Gap 9 BUN 32 H Creatinine 1.5 H POC Glucometer 296 Random Glucose 184 H Calcium 8.5 TSH 3.25 Active Medications Generic Name Dose Route Start Last Admin Trade Name Freq PRN Reason Stop Dose Admin Amiodarone HCl 400 mg 11/25/17 10:40 11/30/17 09:36 Cordarone - PO 400 mg BID [facility] Administration Atorvastatin Calcium 10 mg 11/23/17 22:00 11/29/17 21:03 Lipitor - PO 10 mg HS [facility] Administration Carvedilol 25 mg 11/23/17 22:00 11/30/17 09:36 Coreg - PO 25 mg BID [facility] Administration Ferrous Sulfate 325 mg 11/25/17 10:15 11/30/17 09:36 Feosol - PO 325 mg DAILY [facility] Administration Furosemide 80 mg 12/01/17 06:00 Lasix Injection - IVPUSH BID@0600,1400 [facility] Insulin Aspart 1 vial 11/23/17 16:30 11/30/17 11:59 Novolog Vial Sliding Scale - SQ 6 units ACHS [facility] Administration Protocol Pantoprazole Sodium 40 mg 11/24/17 10:00 11/30/17 09:36 Protonix - PO 40 mg DAILY [facility] Administration Potassium Chloride 20 meq 11/29/17 10:00 11/30/17 09:35 Potassium Chloride Oral Liquid PO 20 meq BID [facility] Administration Rivaroxaban 15 mg 11/24/17 18:00 11/29/17 19:01 Xarelto - PO 15 mg DAILY@1800 [facility] Administration ASSESSMENT/PLAN:
[2017-11-30] MEDS ORDERED: FUROSEMIDE 40 MG/4 ML INJECTABLE VIAL IVPUSH SCH (14:00)
[2017-11-30 15:02] VITALS: PULSE 70
[2017-11-30] MEDS: RIVAROXABAN 15 MG TABLET PO SCH (17:04)
[2017-11-30 17:42] VITALS: BP 117/75; TEMP 97
--- NOTE | 2017-11-30 17:58 | PN ---
Teaching Attending Note Name of Resident: Alonzo Duckworth ATTENDING PHYSICIAN STATEMENT I saw and evaluated the patient. I reviewed the resident's note and discussed the case with the resident. I agree with the resident's findings and plan as documented. SUBJECTIVE: no fever or chills, NO SOB OBJECTIVE: NAD, AAOx3. CV: irreg irreg. no MRG Lungs: CTAB. Ext: 2+ pitting edema on LE. ASSESSMENT AND PLAN: 81 y/o man with h/o HTN, systolic heart failure , A fib, Dm, HLP, CONSTANTINO, thoracic aortic aneurysm, hypertension , recurrent admissions for epistaxis and anemia who presented after a syncopal episode. 1- Syncope: likely due to VF per ICD interrogation. - cont Amiodarone 400 BID . to be decreased to maintenance dose as out pt 2- Iron def Anemia: due to recurrent epistaxis, can't r/o GI loss. no previous colonoscopy - PO iron - need colonoscopy as out pt 3- H/o Systolic heart failure with acute exacerbation -unfortunately can't arrange for IV lasix at infusion center. - per Dr. Mcdaniel recs will dc on 100 mg of torsemide BID , and metolazone can be used if needed 4- A fib: cont coreg and xarelto 5- TAA: stable . f/u as out pt DC home today . f/u with Dr. Mcdaniel and PCP . f/u with GI for colonoscopy
--- NOTE | 2017-11-30 18:35 | DS ---
Physical Exam: SUBJECTIVE: Patient seen and examined OBJECTIVE: Vital Signs Period Temp Pulse Resp BP Sys/Lambert Pulse Ox Last 24 Hr 97 F-98.6 F 69-71 18-20 102-124/49-76 93-93 PHYSICAL EXAM GENERAL: The patient is awake, alert, and fully oriented, in no acute distress. HEAD: Normal with no signs of trauma. EYES: PERRL, extraocular movements intact, sclera anicteric, conjunctiva clear. ENT: Ears normal, nares patent, oropharynx clear without exudates, moist mucous membranes. NECK: Trachea midline, full range of motion, supple. LUNGS: Breath sounds equal, clear to auscultation bilaterally, no wheezes, no crackles, no accessory muscle use. HEART: Regular rate and rhythm, S1, S2 without murmur, rub or gallop. ABDOMEN: Soft, nontender, nondistended, normoactive bowel sounds, no guarding, no rebound, no hepatosplenomegaly, no masses. EXTREMITIES: 2+ pulses, warm, well-perfused, no edema. NEUROLOGICAL: Cranial nerves II through XII grossly intact. Normal speech, gait not observed. PSYCH: Normal mood, normal affect. SKIN: Warm, dry, normal turgor, no rashes or lesions noted. LABS Laboratory Results - last 24 hr 11/29/17 11/29/17 11/30/17 17:15 21:01 05:59 Sodium Potassium Chloride Carbon Dioxide Anion Gap BUN Creatinine POC Glucometer 368 269 224 Random Glucose Calcium TSH 11/30/17 11/30/17 11/30/17 06:40 11:54 17:00 Sodium 137 Potassium 3.9 Chloride 98 Carbon Dioxide 30 Anion Gap 9 BUN 32 H Creatinine 1.5 H POC Glucometer 296 269 Random Glucose 184 H Calcium 8.5 TSH 3.25 HOSPITAL COURSE: Date of Admission:11/23/17 Date of Discharge: 11/30/17 Discharge Summary Reason For Visit: SYNCOPE Current Active Problems CHF exacerbation (Acute) Syncope (Acute) Volume overload (Acute) CHF (congestive heart failure) (Chronic) Thoracic aortic aneurysm (Chronic) Condition: Improved - Instructions Diet, Activity, Other Instructions: You were seen here due to your fainting event and were found to have your defibrillator shocking you. You were also found to be in acute heart failure which most likely caused your heart to go into a dangerous rhythm prompting your shock. You were also found to be iron deficient. Finally, while you were here you received a CAT scan which showed your aneurysm in your chest to be unchanged in size from your previous CAT scan MEDICATIONS: 1)We stopped your Digoxin in the hospital under Dr. Mcdaniel's recommendations and you should stop this INSTEAD you will be taking Amiodarone 400mg TWICE DAILY in its place and you will need to follow-up with Dr. Mcdaniel --This has been sent to your pharmacy 2)You will also have to take Torsemide 100mg TWICE daily instead of once per day --This has been sent to your pharmacy 3)You will also have to take Iron supplementation with the following schedule : Ferrous sulfate 1 tab daily for the first week INCREASE to 2 tabs daily on the second week INCREASE to 3 tabs daily for your third week *Due to the constipating nature of iron pills, you will need to take a stool softener, Colace 100mg TWICE daily* 4)Continue your diabetic medicine as you have were taking before 5)Continue your Xarelto as you have been taking it before 6)Please remember to eat a low salt diet FOLLOW-UP: It is VERY important to follow your diuretic dosage to keep water from building up In addition, you should follow-up with Dr. Mcdaniel's office within the next week so he can assess your leg swelling and water retention Finally, due to your anemia, you will need to have a Colonoscopy and you should see Dr. Houser to schedule this. Please follow your weight daily and if you gain more than 3lbs per day notify Dr. Mcdaniel's office and they can advise your further Referrals: Ludwig Mcdaniel MD [Staff Physician] - 1 Week Toño Houser MD [Staff Physician] - Severino Lindsay [Non Staff, Medical] - Disposition: HOME - Home Medications Comprehensive Discharge Medication List: Ambulatory Orders Atorvastatin Ca [Lipitor] 10 mg PO HS 10/15/17 Carvedilol [Coreg -] 25 mg PO BID 10/15/17 Sitagliptin Phosphate [Januvia] 100 mg PO DAILY 10/15/17 Glyburide 10 mg PO DAILY #60 tablet 10/18/17 Pantoprazole Sodium [Protonix] 40 mg PO DAILY #4 tablet. 10/20/17 Rivaroxaban [Xarelto -] 15 mg PO DAILY #30 tab 11/02/17 Amiodarone HCl [Cordarone -] 400 mg PO BID #30 tablet 11/30/17 Docusate Sodium [Colace] 100 mg PO TID #63 capsule 11/30/17 Ferrous Sulfate [Feosol] 325 mg PO DAILY #42 ud 11/30/17 Torsemide [Demadex -] 100 mg PO BID #60 tablet 11/30/17
[2017-12-01] MEDS ORDERED: FUROSEMIDE 40 MG/4 ML INJECTABLE VIAL IVPUSH SCH (06:00)
[2017-12-01] MEDS ORDERED: FUROSEMIDE 100 MG/10 ML INJECTABLE VIAL IVPB SCH (10:00)
[2017-12-01] MEDS ORDERED: DIGOXIN 0.125 MG TABLET (FP) PO SCH (10:00)
== END 2017-11-30 21:37 | disposition home or self-care (01) | DRG 291 ==
LOC: JER 11:34 → JERBED 14:31 → J4S 11-24 01:27
PROVIDERS: ADMIT Internal Medicine; ATTEND Internal Medicine
DX: I11.0 Hypertensive heart disease with heart failure (principal); I49.01 Ventricular fibrillation; N17.9 Acute kidney failure, unspecified; Z68.41 Body mass index [BMI] 40.0-44.9, adult; I47.2 Ventricular tachycardia; I48.1 Persistent atrial fibrillation; J98.11 Atelectasis; R55 Syncope and collapse; I50.23 Acute on chronic systolic (congestive) heart failure; I42.9 Cardiomyopathy, unspecified; D50.9 Iron deficiency anemia, unspecified; E87.70 Fluid overload, unspecified; I71.2 Thoracic aortic aneurysm, without rupture; E66.01 Morbid (severe) obesity due to excess calories; G47.33 Obstructive sleep apnea (adult) (pediatric); E11.9 Type 2 diabetes mellitus without complications; E78.5 Hyperlipidemia, unspecified
CPT/HCPCS: 36415; 36430; 70450-TC; 71045-TC-FY; 71250-TC; 80048; 80053; 80162; 81003; 81015; 82550; 82607; 82728; 82746; 82962; 83540; 83550; 83735; 83880; 84100; 84443; 84484; 85025; 85027; 85610; 85730; 86850; 86900; 86901; 86922; 93005; 93010; 97116-GP; 97161-GP; 99285-25; P9038; P9058

== ENCOUNTER 2018-10-15 10:00 | Inpatient (IN) | payer OTHER, BC ==
[2018-10-15] MEDS ORDERED: ONDANSETRON 4 MG/2 ML VIAL ONE (10:06)
[2018-10-15] MEDS ORDERED: PANTOPRAZOLE SODIUM 40 MG VIAL IVPUSH ONE (10:12)
[2018-10-15] MEDS ORDERED: dilTIAZem HCL 50 MG/10 ML - 10 ML VIAL ONE (10:15)
--- NOTE | 2018-10-15 10:22 | PDOC ---
Attending Attestation - Resident Resident Name: Fani Laura - ED Attending Attestation I have performed the following: I have examined & evaluated the patient, The case was reviewed & discussed with the resident, I agree w/resident's findings & plan, Exceptions are as noted
[2018-10-15] MEDS ORDERED: dilTIAZem HCL 50 MG/10 ML - 10 ML VIAL IVPUSH ONE ×2 (10:24→10:26)
[2018-10-15] MEDS ORDERED: PIPERACILLIN/TAZOB 3.375 GM 3.375 GM in DEXTROSE 5%-WATER - 50 ML IVPB ONE (10:25)
[2018-10-15] MEDS ORDERED: AZITHROMYCIN IVPB 500 MG in DEXTROSE 5%-WATER - 250 ML IVPB ONE (10:25)
[2018-10-15] MEDS ORDERED: ETOMIDATE 20 MG/10 ML AMPUL IVPUSH ONE (10:26)
[2018-10-15] MEDS ORDERED: ROCURONIUM BROMIDE 50 MG/5 ML VIAL IV ONE (10:26)
[2018-10-15] MEDS ORDERED: PROPOFOL 200 MG/20 ML VIAL IVPUSH ONE (10:27)
--- NOTE | 2018-10-15 10:27 | PDOC ---
History of Present Illness <Sapphire Fontaine - Last Filed: 10/15/18 12:03> <Jeanette Szymanski - Last Filed: 10/15/18 12:06> - History of Present Illness Initial Comments: 10/15/18 10:26 The patient is an 82 year old male with a PMH of AFib (on Xarelto, s/p Defibrillator), CHF, NIDDM, TAA (stable as of 2018) was BIBEMS for coffee ground emesis and AMS. Son @ bedside assists in history. States he found patient this morning on his knees propped up on the bed surrounded by brown liquid which he presumes was feces. States patient responded to his name by turning his head but was non-verbal. Son called 911, EMS reports patient was A& O x4 upon arrival at scene and started coughing up blood when they transferred him to the stretcher however remained alert and oriented. EMS reports patient HR irregular, SpO2 90's on RA. At presentation patient has coffee ground emesis covering his face and chest. <Fani Laura - Last Filed: 10/16/18 16:26> - General Chief Complaint: Vomiting Blood Stated Complaint: ALTERED MENTAL STATUS Time Seen by Provider: 10/15/18 10:22 Past History <Sapphire Fontaine - Last Filed: 10/15/18 12:03> <Jeanette Szymanski - Last Filed: 10/15/18 12:06> - Past Medical History Anemia: No Asthma: No Cancer: No Cardiac Disorders: Yes (afib chf heart failure) CVA: No COPD: No CHF: Yes Dementia: No Diabetes: Yes GI Disorders: No Disorders: No HTN: Yes Hypercholesterolemia: Yes Liver Disease: No Seizures: No Thyroid Disease: No - Surgical History Abdominal Surgery: No Appendectomy: No Cardiac Surgery: Yes (pacemaker) Cholecystectomy: No Lung Surgery: No Neurologic Surgery: No Orthopedic Surgery: Yes - Immunization History Td Vaccination: Yes Immunization Up to Date: Yes - Suicide/Smoking/Psychosocial Hx Smoking Status: No Smoking History: Unknown if ever smoked Years of Tobacco Use: 0 Have you smoked in the past 12 months: No Number of Cigarettes Smoked Daily: 0 Cigars Per Day: 0 Hx Alcohol Use: No Drug/Substance Use Hx: No Substance Use Type: None Hx Substance Use Treatment: No <Fani Laura - Last Filed: 10/16/18 16:26> - Past Medical History Allergies/Adverse Reactions: Allergies Allergy/AdvReac Type Severity Reaction Status Date / Time benazepril Allergy Severe Swelling Verified 10/15/18 10:11 Home Medications: Ambulatory Orders Atorvastatin Ca [Lipitor] 10 mg PO HS 10/15/17 Carvedilol [Coreg -] 18.75 mg PO BID 10/15/17 Sitagliptin Phosphate [Januvia] 100 mg PO DAILY 10/15/17 Pantoprazole Sodium [Protonix] 40 mg PO DAILY #4 tablet. 10/20/17 Rivaroxaban [Xarelto] 15 mg PO DAILY #30 tab 11/02/17 Amiodarone HCl [Cordarone -] 400 mg PO DAILY 10/15/18 Glyburide 10 mg PO BID 10/15/18 Torsemide [Demadex -] 200 mg PO BID 10/15/18 *Physical Exam - Vital Signs Last Vital Signs Temp Pulse Resp BP Pulse Ox 98 F 64 14 140/95 100 10/15/18 10:00 10/15/18 10:15 10/15/18 10:15 10/15/18 10:00 10/15/18 10:15 <Sapphire Fontaine - Last Filed: 10/15/18 12:03> - Vital Signs Last Vital Signs Temp Pulse Resp BP Pulse Ox 99.1 F 119 H 20 152/83 100 10/15/18 11:20 10/15/18 12:00 10/15/18 12:00 10/15/18 12:00 10/15/18 12:00 <Jeanette Szymanski - Last Filed: 10/15/18 12:06> - Vital Signs Last Vital Signs Temp Pulse Resp BP Pulse Ox 98 F 102 H 16 140/95 96 10/15/18 10:00 10/15/18 10:00 10/15/18 10:00 10/15/18 10:00 10/15/18 10:00 - Physical Exam Comments: 10/15/18 19:18 General: Awake, drowsy but arousable, active hematemesis CV: S1/S2, no M/R/G Respiratory: Diffuse crackles and rhonchi Extremities: 3+ pitting edema B/L with chronic venous stasis changes Abdomen: soft, distended, no fluid wave shift, (+) bowel sounds <ValentínFani jenkins - Last Filed: 10/16/18 16:26> Procedures - Intubation Time of Intubation: 10:10 Intubation Method: orotracheal Blade used: Mac Tube Size (Fr): 7.5 Medications: Etomidate, Rocuronium Tube position @ lip (cm): 21 Tube position confirmed by: Direct visualization, CO2 detector, Chest x-ray, Breath sounds Breath Sounds after Intubation: equal Intubation Complications: no complications - Additional Procedures Additional Procedures: other (NG tube placement) Progress: 10/15/18 12:04 placed into L nostril, 68cm <Sapphire Fontaine - Last Filed: 10/15/18 12:03> ED Treatment Course - LABORATORY CBC & Chemistry Diagram: 10/15/18 10:11 10/15/18 10:11 - Medications Given in the ED: ED Medications Discontinued Medications Generic Name Dose Route Start Last Admin Trade Name Freq PRN Reason Stop Dose Admin Diltiazem HCl 10 mg 10/15/18 10:24 10/15/18 10:30 Cardizem Injection - IVPUSH 10/15/18 10:25 10 mg ONCE ONE Administration Diltiazem HCl 10 mg 10/15/18 10:26 10/15/18 10:30 Cardizem Injection - IVPUSH 10/15/18 10:27 10 mg ONCE ONE Administration Etomidate 20 mg 10/15/18 10:26 10/15/18 10:30 Amidate - IVPUSH 10/15/18 10:27 20 mg ONCE ONE Administration Pantoprazole Sodium 80 mg 10/15/18 10:12 10/15/18 10:30 Protonix Iv IVPUSH 10/15/18 10:13 80 mg ONCE ONE Administration Propofol 40,000 mcg 10/15/18 10:27 10/15/18 10:30 Diprivan - IVPUSH 10/15/18 10:28 40,000 mcg ONCE ONE Administration Rocuronium [place] 100 mg 10/15/18 10:26 10/15/18 10:31 Zemuron - IV 10/15/18 10:27 100 mg ONCE ONE Administration <Sapphire Fontaine - Last Filed: 10/15/18 12:03> - LABORATORY CBC & Chemistry Diagram: 10/15/18 10:11 10/15/18 10:11 - ADDITIONAL ORDERS Additional order review: Laboratory Results 10/15/18 10/15/18 10/15/18 10:40 10:31 10:30 PT with INR INR PTT (Actin FS) Anticoagulation Therapy No Result Required. Puncture Site Right radial ABG pH 7.26 L ABG pCO2 at Pt Temp 58.2 H ABG pO2 at Pt Temp 286 H ABG HCO3 24.9 ABG O2 Sat (Measured) 99.7 H ABG O2 Content 11.4 L ABG Base Excess -1.8 Junior Test Positive O2 Delivery Device No Result Required. Oxygen Flow Rate Yes Vent Mode No Result Required. Vent Rate No Result Required. Mechanical Rate No Result Required. Pressure Support Vent No Result Required. Sodium Potassium Chloride Carbon Dioxide Anion Gap BUN Creatinine Creat Clearance w eGFR Random Glucose Lactic Acid Calcium Magnesium Total Bilirubin AST ALT Alkaline Phosphatase Creatine Kinase Troponin I B-Natriuretic Peptide Total Protein Albumin Urine Color Yellow Urine Appearance Clear Urine pH 5.0 D Ur Specific [place] 1.015 Urine Protein Negative Urine Glucose (UA) Negative Urine Ketones Trace H Urine Blood Negative Urine Nitrite Negative Urine Bilirubin Negative Urine Urobilinogen 1.0 Ur Leukocyte Esterase Trace Urine WBC (Auto) 0 Urine RBC (Auto) 0 Urine Casts (Auto) 0 U Epithel Cells (Auto) 0.6 Urine Bacteria (Auto) 1.2 Stool Occult Blood Positive Blood Type Antibody Screen Crossmatch 10/15/18 10/15/18 10/15/18 10:11 10:11 10:11 PT with INR INR PTT (Actin FS) Anticoagulation Therapy Puncture Site ABG pH ABG pCO2 at Pt Temp ABG pO2 at Pt Temp ABG HCO3 ABG O2 Sat (Measured) ABG O2 Content ABG Base Excess Junior Test O2 Delivery Device Oxygen Flow Rate Vent Mode Vent Rate Mechanical Rate Pressure Support Vent Sodium 147 H Potassium 4.7 Chloride 112 H Carbon Dioxide 24 Anion Gap 11 BUN 90 H Creatinine 1.7 H Creat Clearance w eGFR 38.97 Random Glucose 248 H Lactic Acid 5.0 H* Calcium 8.8 Magnesium 2.3 Total Bilirubin 1.9 H AST 20 ALT 17 Alkaline Phosphatase 146 H Creatine Kinase 106 Troponin I 0.03 B-Natriuretic Peptide 1193.4 H Total Protein 6.3 L Albumin 3.0 L Urine Color Urine Appearance Urine pH Ur Specific [place] Urine Protein Urine Glucose (UA) Urine Ketones Urine Blood Urine Nitrite Urine Bilirubin Urine Urobilinogen Ur Leukocyte Esterase Urine WBC (Auto) Urine RBC (Auto) Urine Casts (Auto) U Epithel Cells (Auto) Urine Bacteria (Auto) Stool Occult Blood Blood Type A POSITIVE Antibody Screen Negative Crossmatch See Detail 10/15/18 10:11 PT with INR 17.50 H INR 1.48 H PTT (Actin FS) 33.3 Anticoagulation Therapy Puncture Site ABG pH ABG pCO2 at Pt Temp ABG pO2 at Pt Temp ABG HCO3 ABG O2 Sat (Measured) ABG O2 Content ABG Base Excess Junior Test O2 Delivery Device Oxygen Flow Rate Vent Mode Vent Rate Mechanical Rate Pressure Support Vent Sodium Potassium Chloride Carbon Dioxide Anion Gap BUN Creatinine Creat Clearance w eGFR Random Glucose Lactic Acid Calcium Magnesium Total Bilirubin AST ALT Alkaline Phosphatase Creatine Kinase Troponin I B-Natriuretic Peptide Total Protein Albumin Urine Color Urine Appearance Urine pH Ur Specific [place] Urine Protein Urine Glucose (UA) Urine Ketones Urine Blood Urine Nitrite Urine Bilirubin Urine Urobilinogen Ur Leukocyte Esterase Urine WBC (Auto) Urine RBC (Auto) Urine Casts (Auto) U Epithel Cells (Auto) Urine Bacteria (Auto) Stool Occult Blood Blood Type Antibody Screen Crossmatch 10/15/18 10:11 RBC 2.96 L MCV 86.2 MCHC 32.9 RDW 16.4 H MPV 9.3 Neutrophils % 82.2 Lymphocytes % 8.8 Monocytes % 8.9 Eosinophils % 0.0 D Basophils % 0.1 - RADIOLOGY Radiology Studies Ordered: Category Date Time Status ABDOMEN/PELVIS CTA W/WO CONTR [CT] Stat CT Scan 10/15/18 10:27 Taken CHEST CTA [CT] Stat CT Scan 10/15/18 10:[address] WITHOUT CONTRAST [CT] Stat CT Scan 10/15/18 10:23 Taken - Medications Given in the ED: ED Medications Discontinued Medications Generic Name Dose Route Start Last Admin Trade Name Freq PRN Reason Stop Dose Admin Diltiazem HCl 10 mg 10/15/18 10:24 10/15/18 10:30 Cardizem Injection - IVPUSH 10/15/18 10:25 10 mg ONCE ONE Administration Diltiazem HCl 10 mg 10/15/18 10:26 10/15/18 10:30 Cardizem Injection - IVPUSH 10/15/18 10:27 10 mg ONCE ONE Administration Etomidate 20 mg 10/15/18 10:26 10/15/18 10:30 Amidate - IVPUSH 10/15/18 10:27 20 mg ONCE ONE Administration Azithromycin 500 mg/ Dextrose 250 mls @ 250 mls/hr 10/15/18 10:25 10/15/18 11 :16 IVPB 10/15/18 11:24 250 mls/hr ONCE ONE Administration Piperacillin Sod/Tazobactam 50 mls @ 100 mls/hr 10/15/18 10:25 10/15/18 11:16 Sod 3.375 gm/ Dextrose IVPB 10/15/18 10:54 100 mls/hr ONCE ONE Administration Protocol Pantoprazole Sodium 80 mg 10/15/18 10:12 10/15/18 10:30 Protonix Iv IVPUSH 10/15/18 10:13 80 mg ONCE ONE Administration Propofol 40,000 mcg 10/15/18 10:27 10/15/18 10:30 Diprivan - IVPUSH 10/15/18 10:28 40,000 mcg ONCE ONE Administration Rocuronium [place] 100 mg 10/15/18 10:26 10/15/18 10:31 Zemuron - IV 10/15/18 10:27 100 mg ONCE ONE Administration <Jeanette Szymanski - Last Filed: 10/15/18 12:06> - LABORATORY CBC & Chemistry Diagram: 10/16/18 12:30 10/16/18 05:30 <Fani Laura - Last Filed: 10/16/18 16:26> Medical Decision Making - Medical Decision Making 10/15/18 10:30 82 year old male BIBEMS for hematemesis. Actively vomiting, drowsy at presentation. Tachycardic (HR 102), other VS stable Medical code initiated. Intubation by Dr. Fontaine for airway protection [place] labs, blood cultures, CXR, CTH (h/o solo episode of AMS), CTA (h/o AAA) Monitor ? V Tach vs AFib EKG shows Afib w/RVR (HR 100's) - Cardizem [address] on monitor Preliminary head, abdomen reads negative 10/15/18 10:39 Repeat BP 120/66 Will cover for Aspiration PNA 10/15/18 10:42 S/p PPI Repeat BP 125/68 10/15/18 11:20 Repeat BP 162/91 ICU @ bedside - patient accepted for admission Attending discussed case w/hospitalist. Will admit, GI consult pending Case d/w Dr. Sanchez (GI) will evaluate patient at bedside and son @ bedside. Counseled on plan of care. Intermittent AFib - cardiac monitoring, serial EKGs when in ED VSS Clinical Impression: Hematemesis possibly 2/2 UGI. <Fani Laura - Last Filed: 10/16/18 16:26> *DC/Admit/Observation/Transfer <Sapphire Fontaine - Last Filed: 10/15/18 12:03> - Discharge Dispostion Decision to Admit order: Yes <Jeanette Szymanski - Last Filed: 10/15/18 12:06> <Fani Laura - Last Filed: 10/16/18 16:26> Diagnosis at time of Disposition: Upper GI bleed - Discharge Dispostion Condition at time of disposition: Critical
[2018-10-15] MEDS ORDERED: WATER IVPB SCH (10:30)
[2018-10-15] MEDS ORDERED: DILTIAZEM INJECTION 125 MG in SODIUM CHLORIDE 100 ML IVPB SCH ×2 (10:30→12:00)
[2018-10-15] MEDS ORDERED: DILTIAZEM IVPB SCH (10:30)
[2018-10-15] MEDS ORDERED: DEXTROSE 5% IVPB SCH (10:30)
[2018-10-15] MEDS ORDERED: AZITHROMYCIN IVPB 500 MG/250 ML BAG IVPB ONE (10:33)
[2018-10-15] MEDS ORDERED: PANTOPRAZOLE SODIUM 80 MG/200 ML BAG IVPB ONE (10:33)
[2018-10-15] MEDS ORDERED: PIPERACILLIN/TAZOB 4.5 GM 4.5 GM/100 ML BAG IVPB ONE (10:33)
[2018-10-15] MEDS ORDERED: PANTOPRAZOLE SODIUM 40 MG/100 ML BAG IVPB ONE (10:34)
[2018-10-15 10:43] LABS: BASO % 0.1 % (0-2.0); HEMATOCRIT 25.5 % (35.4-49); HEMOGLOBIN 8.4 GM/dL (11.7-16.9); LYMPH % 8.8 % (8-40); MCH 28.4 pg (25.7-33.7); MCHC 32.9 g/dl (32.0-35.9); MEAN CELL VOLUME 86.2 fl (80-96); MEAN PLT VOLUME 9.3 fl (7.5-11.1); MONO % 8.9 % (3.8-10.2); NEUT % 82.2 % (42.8-82.8); PLATELET COUNT 185 K/MM3 (134-434); RBC 2.96 M/mm3 (4.00-5.60); RDW 16.4 % (11.9-15.9)
[2018-10-15 10:51] LABS: ARTERIAL BLD GAS O2 SATURATION 99.7 % (95-98); ARTERIAL BLOOD GAS BASE EXCESS -1.8 meq/l (-2-2); ARTERIAL BLOOD GAS PCO2 58.2 mmHg (35-45); ARTERIAL BLOOD GAS PO2 286 mmHg (80-105); ARTERIAL BLOOD GAS pH 7.26 (7.35-7.45)
[2018-10-15 10:54] LABS: ALK PHOS 146 U/L (45-117); ANION GAP 11 MMOL/L (8-16); BILIRUBIN,TOTAL 1.9 mg/dL (0.2-1); BLOOD UREA NITROGEN 90 mg/dL (7-18); CALCIUM 8.8 mg/dL (8.5-10.1); CHLORIDE 112 mmol/L (98-107); CO2 24 mmol/L (21-32); CREATININE 1.7 mg/dL (0.55-1.3); GLUCOSE,RANDOM 248 mg/dL (74-106); MAGNESIUM 2.3 mg/dL (1.8-2.4); N-TERMINAL BNP 1193.4 pg/ml (5-450); POTASSIUM 4.7 mmol/L (3.5-5.1); SGOT/AST 20 U/L (15-37); SGPT/ALT 17 U/L (13-61); SODIUM 147 mmol/L (136-145); TOT PROT 6.3 g/dl (6.4-8.2)
[2018-10-15 10:57] LABS: INR 1.48 (0.83-1.09); PROTHROMBIN TIME (PATIENT) 17.5 SEC (9.7-13.0)
[2018-10-15 11:00] LABS: ACTIVATED PTT 33.3 SECONDS (25.2-36.5)
[2018-10-15 11:00] LABS: EPI CELLS 0.6 /HPF (0-5/HPF); URINE APPEARANCE CLEAR; URINE BACTERIA 1.2 /hpf (NEGATIVE); URINE BILIRUBIN NEGATIVE (NEGATIVE); URINE CASTS 0 /lpf (0-8); URINE COLOR YELLOW; URINE GLUCOSE (UA) NEGATIVE (NEGATIVE); URINE KETONE TRACE (NEGATIVE); URINE LEUK ESTERASE TRACE (NEGATIVE); URINE NITRITE NEGATIVE (NEGATIVE); URINE PROTEIN NEGATIVE (NEGATIVE); URINE RBC 0 /hpf (0-4); URINE WBC 0 /hpf (0-5)
--- NOTE | 2018-10-15 11:08 | PDOC ---
Documentation entered by Pancho Wylie SCRIBE, acting as scribe for Jeanette Szymanski MD. Jeanette Szymanski MD: This documentation has been prepared by the Dejan villa Nirvannie, SCRIBE, under my direction and personally reviewed by me in its entirety. I confirm that the documentation accurately reflects all work, treatment, procedures, and medical decision making performed by me. Attending Attestation - Resident Resident Name: ValentínFani - ED Attending Attestation I have performed the following: I have examined & evaluated the patient, The case was reviewed & discussed with the resident, I agree w/resident's findings & plan - HPI HPI: 10/15/18 11:09 The patient is a 82 year old male, with a significant past medical history of CHF, thoracic aneurysm, Afib (s/p [employer] defibrillator on Xarelto), who presents to the emergency department with, coffee ground emesis and AMS. As per EMS, they arrived at the scene for a call of lethargy after son noticed patient defected on himself and was altered, on his knees. At said time patient was only alert and orientated to his name but, was nonverbal, prompting him to call for EMS. EMS notes upon their arrival patient was A&O x4 then began coughing and vomiting coffee-ground emesis. They note patients heart rate was irregular on their monitors and he was saturating 92% on room air amd 97% on 4L. Upon patients arrival to the ED, he defecated on himself and had coffee ground emesis diffusely across mouth and abdomen. Pre-intubation vitals: BP: 140/95 HR: 106bpm Resp rate: 27 O2: 97% on a nonrebreather 10:07am: 8 of Zofran 10:08am: 20 of Etomidate 10:08am: 100 of Rocuronium 10:10am: Pt was intubated Post-intubation vitals: BP: 139/74 HR: 126bpm Resp rate: 24 O2: 100% intubated on a vent 10:16am: 10 of Cardizem 10:17: 40 of Propofol Vitals: BP: 115/63 HR: 100bpm Resp rate: 19 O2: 100% intubated on a vent 10:21am: 10 of Cardizem Rectal Temp: 99.1F Allergies: NKDA Primary Care Physician: Dr. Live - Physicial Exam PE: GENERAL: Minimally responsive. Obese. +Coffee ground emesis on face, chest, and abdomen. HEAD: No signs of trauma EYES: PERRLA, EOMI, sclera anicteric, conjunctiva clear ENT: Auricles normal inspection, hearing grossly normal, nares patent, oropharynx clear without exudates. Dry mucosa NECK: Normal ROM, supple, no lymphadenopathy, JVD, or masses LUNGS: Breath sounds equal, clear to auscultation bilaterally. No wheezes, and no crackles HEART: Irregularly irregular, tachycardic. ABDOMEN: Soft, distended, hyperactive bowel sounds. No guarding, no rebound. No masses EXTREMITIES: Normal range of motion, no edema. No clubbing or cyanosis. No cords, erythema, or tenderness NEUROLOGICAL: Limited by AMS. SKIN: Warm, Dry, normal turgor, no rashes or lesions noted. - Critical Care Time Total Critical Care Time: 60 Critical Care Statement: The care of this patient involved high complexity decision making to prevent further life threatening deterioration of the patient 's condition and/or to evaluate & treat vital organ system(s) failure or risk of failure. - Medical Decision Making Pt presents critically ill. Presented with altered mental status, lethargic on arrival in ED, covered in coffee ground emesis. Intubated for airway protection , given protonix and abx to cover for suspected aspiration (diffuse rhonchi and crackles throughout the lungs on arrival, high risk from history as well). NGT placed, scant coffee ground emesis obtained. Awaiting labs, CTH (for AMS), CTA to r/o ruptured AAA (history of prior AAA). Will admit to ICU.
[2018-10-15 11:21] LABS: ALLENS TEST POSITIVE
[2018-10-15] MEDS ORDERED: PROPOFOL 1,000,000 MCG/100 ML VIAL ONE (12:05)
[2018-10-15] MEDS: PROPOFOL 1,000,000 MCG/100 ML VIAL IVPB SCH (12:23)
--- NOTE | 2018-10-15 13:30 | CONSULT ---
Consult - text type - Consultation Consultation Note: PULM/CCM Consult Pt seen and examined in ICU CC: hematemesis, AMS HPI: (hx obtained from medical record, ED staff and pt's son) Briefly Mr Steven is a 82 y/o man with hx of HTN, DM, CHF s/p AICD, AAA, atrial fibrillation on eliquis with hx of bleeding episodes who was found altered, with hematemesis and loose stool all over himself in bedroom by his son. He was brought to ED where he was slightly altered, vomiting, poorly protecting his airway and was subsequently intubated. His was started on protonix gtt, given 1 PRBC, and taken for CTA abd/pelvis, Head, and chest. No acute pathology on CT head. No new aneurysm noted on CTA. There bibasilar atelectesis but no new dense infiltrate. WBC was 14. Hgb was 8.5. Cr was 1.7. Trop 0.03 He was presumed to have aspirated and was stared on antibiotics. In ED he was hypertensive and agitated. He was started on Cardizem gtt and sedated with Propofol. He was transferred to ICU where he became hypotensive and both agents were d/c'd in ICU. Dr Ortiz was consulted and is evaluating need for endoscopy. Ambulatory Orders Atorvastatin Ca [Lipitor] 10 mg PO HS 10/15/17 Carvedilol [Coreg -] 18.75 mg PO BID 10/15/17 Sitagliptin Phosphate [Januvia] 100 mg PO DAILY 10/15/17 Pantoprazole Sodium [Protonix] 40 mg PO DAILY #4 tablet. 10/20/17 Rivaroxaban [Xarelto] 15 mg PO DAILY #30 tab 11/02/17 Amiodarone HCl [Cordarone -] 400 mg PO DAILY 10/15/18 Glyburide 10 mg PO BID 10/15/18 Torsemide [Demadex -] 200 mg PO BID 10/15/18 Allergies Allergy/AdvReac Type Severity Reaction Status Date / Time benazepril Allergy Severe Swelling Verified 10/15/18 10:11 Past Medical History Cardio/Vascular AFIB,CAD,CHF,Hyperlipdemia,Other Pulmonary Sleep Apnea Gastrointestinal Other Renal/ Hematuria,Renal Calculi Endocrine Diabetes Insipidus Past Surgical History Past Surgical History AICD,Hernia Repair,Joint Replacement Smoking History Smoking history Unknown if ever smoked Aproximately how many 0 cigarettes per day Alcohol/Substance Use Hx Alcohol Use No Current Medications Diltiazem HCl 125 mg/ Sodium (Chloride) 125 mls @ 5 mls/hr IVPB TITR USHA; Protocol Last Admin: 10/15/18 12:23 Dose: 5 mg/hr, 5 mls/hr Propofol (Diprivan -) 1,000,000 mcg in 100 mls @ 4.491 mls/hr IVPB TITR USHA; Protocol Last Admin: 10/15/18 12:23 Dose: 5 mcg/kg/min, 4.491 mls/hr CBCD WBC 14.0 K/mm3 (4.0-10.0) H 10/15/18 10:11 RBC 2.96 M/mm3 (4.00-5.60) L 10/15/18 10:11 Hgb 8.4 GM/dL (11.7-16.9) L 10/15/18 10:11 Hct 25.5 % (35.4-49) L 10/15/18 10:11 MCV 86.2 fl (80-96) 10/15/18 10:11 MCHC 32.9 g/dl (32.0-35.9) 10/15/18 10:11 RDW 16.4 % (11.9-15.9) H 10/15/18 10:11 Plt Count 185 K/MM3 (134-434) 10/15/18 10:11 MPV 9.3 fl (7.5-11.1) 10/15/18 10:11 CMP Sodium 147 mmol/L (136-145) H 10/15/18 10:11 Potassium 4.7 mmol/L (3.5-5.1) 10/15/18 10:11 Chloride 112 mmol/L (98-107) H 10/15/18 10:11 Carbon Dioxide 24 mmol/L (21-32) 10/15/18 10:11 Anion Gap 11 MMOL/L (8-16) 10/15/18 10:11 BUN 90 mg/dL (7-18) H 10/15/18 10:11 Creatinine 1.7 mg/dL (0.55-1.3) H 10/15/18 10:11 Creat Clearance w eGFR 38.97 (>60) 10/15/18 10:11 Random Glucose 248 mg/dL (74-106) H 10/15/18 10:11 Calcium 8.8 mg/dL (8.5-10.1) 10/15/18 10:11 Total Bilirubin 1.9 mg/dL (0.2-1) H 10/15/18 10:11 AST 20 U/L (15-37) 10/15/18 10:11 ALT 17 U/L (13-61) 10/15/18 10:11 Alkaline Phosphatase 146 U/L (45-117) H 10/15/18 10:11 Total Protein 6.3 g/dl (6.4-8.2) L 10/15/18 10:11 Albumin 3.0 g/dl (3.4-5.0) L 10/15/18 10:11 CARDIAC ENZYMES Creatine Kinase 106 U/L (26-308) 10/15/18 10:11 Troponin I 0.03 ng/ml (0.00-0.05) 10/15/18 10:11 Vital Signs Temp 99 F 10/15/18 13:04 Pulse 89 10/15/18 13:04 Resp 20 10/15/18 13:30 BP 100/65 10/15/18 13:04 Pulse Ox 100 10/15/18 13:04 Intake & Output 10/14/18 10/15/18 10/15/18 23:59 11:59 23:59 Output Total 350 Balance -350 Weight 149.685 kg Output: Urine 350 [place] 350 Other: Voiding Method Toilet Height 6 ft Body Mass Index (BMI) 44.7 Weight Measurement Method Est/Stated by Patient PE: Gen: intubated, sedated HEENT: PERRL, coffee ground emesis about lips and from NGT PULM; scattered rhonchi CV; irreg, ISIDRO ABD: obese, soft, +BS EXT: 2+ pitting edema with venous stasis changes Neuro: withdrawal bilaterally, sedated A/ 82 yo old man with extensive cardiac hx on anticoagulation presenting with coffee ground emesis possible aspiration now intubated. P/ UGIB: -maintain adequate access -protonix gtt -no evidence of liver disease to suspect varix -Dr Ortiz following, will consider -NPO, NGT to intermittent suction, monitor output -1 prbc transfused, will check CBC and keep other on hold Possible aspiration/intubated for airway control: -most aspiration is non-infectious pneumonitis -will hold abx for now with low threshold to add back if febrile, septic -full vent support, light sedation for vent synchrony Cardiovascular disease: total body volume overload, CHF -hold antihypertenisves and anticoagulation -rate/bp control with IV agents as needed -will need diuresis once stable SCD for dvt prophylaxsis Protonix gtt ICU monitoring Jose Angel ACNP [id number] 35min CCT spent examining patient formulating plan
--- NOTE | 2018-10-15 14:07 | EKG ---
Test Reason : Blood Pressure : / mmHG Vent. Rate : 108 BPM Atrial Rate : 115 BPM P-R Int : 000 ms QRS Dur : 158 ms QT Int : 384 ms P-R-T Axes : 000 -78 057 degrees QTc Int : 514 ms ATRIAL FIBRILLATION WITH RAPID VENTRICULAR RESPONSE LEFT AXIS DEVIATION RIGHT BUNDLE BRANCH BLOCK INFERIOR INFARCT (CITED ON OR BEFORE 13-SEP-2006) ANTEROSEPTAL INFARCT (CITED ON OR BEFORE 22-MAY-2011) ABNORMAL ECG Confirmed by MD FELIPE, MACARIO ([id number]) on 10/15/2018 2:06:52 PM Referred By: Confirmed By:MACARIO WANG MD
--- NOTE | 2018-10-15 14:07 | HP ---
Admitting History and Physical - Admission Chief Complaint: upper GI bleeding History of Present Illness: this is an 82 y/o male patient with hx of atrial fibrillation, HTN, DM, DL, HFrEF s/p single lead ICD (medtronic) presented after the patient son noted that his father is altered with coagulated blood on the bed, the patient's son called the ambulance then the patient was noted t vomit blood. the patient was intubated for airway protection and was brought to the ER for futher management. patient has a history of epistaxis in the past and was till given rivaroxiban and has been stable since then. History Source: Family Member Limitations to Obtaining History: Intubated - Past Medical History Cardiovascular: Yes: AFIB, CAD, CHF, Hyperlipdemia, Other (thoracic aortic aneurysm) Pulmonary: Yes: Sleep Apnea Gastrointestinal: Yes: Other (umbilical hernia) Renal/: Yes: Hematuria, Renal Calculi Endocrine: Yes: Diabetes Insipidus - Past Surgical History Past Surgical History: Yes: AICD, Hernia Repair, Joint Replacement - Smoking History Smoking history: Unknown if ever smoked Have you smoked in the past 12 months: No Aproximately how many cigarettes per day: 0 - Alcohol/Substance Use Hx Alcohol Use: No Home Medications - Allergies Allergies/Adverse Reactions: Allergies Allergy/AdvReac Type Severity Reaction Status Date / Time benazepril Allergy Severe Swelling Verified 10/15/18 10:11 - Home Medications Home Medications: Ambulatory Orders Atorvastatin Ca [Lipitor] 10 mg PO HS 10/15/17 Carvedilol [Coreg -] 18.75 mg PO BID 10/15/17 Sitagliptin Phosphate [Januvia] 100 mg PO DAILY 10/15/17 Pantoprazole Sodium [Protonix] 40 mg PO DAILY #4 tablet. 10/20/17 Rivaroxaban [Xarelto] 15 mg PO DAILY #30 tab 11/02/17 Amiodarone HCl [Cordarone -] 400 mg PO DAILY 10/15/18 Glyburide 10 mg PO BID 10/15/18 Torsemide [Demadex -] 200 mg PO BID 10/15/18 Review of Systems Unable to obtain ROS, reason: patient is intubated Physical Examination Vital Signs: Vital Signs Temperature 99 F 10/15/18 13:04 Pulse Rate 89 10/15/18 13:04 Respiratory Rate 20 10/15/18 13:30 Blood Pressure 100/65 10/15/18 13:04 O2 Sat by Pulse Oximetry (%) 100 10/15/18 13:04 Constitutional: Yes: Well Nourished, No Distress, Calm Eyes: Yes: WNL, Conjunctiva Clear, EOM Intact HENT: Yes: WNL, Atraumatic, Normocephalic Neck: Yes: WNL, Supple, Trachea Midline Cardiovascular: Yes: WNL, Regular Rate and Rhythm, Pulse Irregular, S1, S2 Respiratory: Yes: WNL, CTA Bilaterally Gastrointestinal: Yes: WNL, Normal Bowel Sounds, Soft Musculoskeletal: Yes: WNL Extremities: Yes: WNL Edema: LLE: 3+, RLE: 3+ Peripheral Pulses WNL: Yes Integumentary: Yes: WNL Wound/Incision: Yes: Clean/Dry ...Motor Strength: WNL Labs: CBC, BMP 10/15/18 10:11 10/15/18 10:11 Imaging - Results Chest X-ray: Image Reviewed X-ray: Report Reviewed, Image Reviewed Cat Scan: Report Reviewed, Image Reviewed EKG: Image Reviewed Problem List - Problems (1) Upper GI bleed Assessment/Plan: patient is intubated sedate Hb 8.2 GI consult urgently - for GI bleeding trend Hb hold rivaroxiban consider adenexat ( rivaroxiban antidote) if available - patient last dose was yesterday keep patient NPO if GI scopes the patient without any source of bleeding consider ENT evaluation for the possibility of reoccurring epistaxis bleeding Code(s): K92.2 - GASTROINTESTINAL HEMORRHAGE, UNSPECIFIED (2) Atrial fibrillation Assessment/Plan: c/w rate control d/c rivaroxiban - discussion with the family and hyster driver about continuation of the NOAC due to the repetitive history of bleeding Code(s): I48.91 - UNSPECIFIED ATRIAL FIBRILLATION (3) CHF (congestive heart failure) Assessment/Plan: stable cardiology consultaion device interrogation hold hypertensive medication f/u cardiology consultation Code(s): I50.9 - HEART FAILURE, UNSPECIFIED (4) Diabetes mellitus Assessment/Plan: ISS NPO Code(s): E11.9 - TYPE 2 DIABETES MELLITUS WITHOUT COMPLICATIONS (5) Thoracic aortic aneurysm Assessment/Plan: stable will follow-up with CT chest when the patient is stable cardiology consultation Code(s): I71.2 - THORACIC AORTIC ANEURYSM, WITHOUT RUPTURE
[2018-10-15] MEDS ORDERED: MIDAZOLAM HCL 2 MG/2 ML SINGLE DOSE VIAL IVPUSH PRN (14:09)
[2018-10-15] MEDS ORDERED: PANTOPRAZOLE SODIUM 80 MG in SODIUM CHLORIDE 100 ML IVPB SCH (14:30)
--- NOTE | 2018-10-15 14:30 | CON.CARD ---
Cardiology Consult (text) - Consultation Consultation Note: Consult Consult Specialty:: cardio - History of Present Illness Chief Complaint: hemoptysis History of Present Illness: 82M h/o chronic systolic HF, ICD, afib on xarelto, epistaxis p/w coffee ground emesis, alt mental status. Patient defecated on himself, was altered, nonverbal. Was initially alert when EMS came, then was coughing, vomiting with coffee ground emesis, with sat 92% on room air. Patient of Dr Mcdaniel. Was intubated in the ER for airway protection and given IV cardizem for afib with RVR. History obtained from patient's and son. PMH: syst CHF ICD afib epistaxis - Past Medical History Cardio/Vascular: Yes: AFIB, CAD, CHF, Hyperlipdemia, Other (thoracic aortic aneurysm) Pulmonary: Yes: Sleep Apnea Gastrointestinal: Yes: Other (umbilical hernia) Renal/: Yes: Hematuria, Renal Calculi Endocrine: Yes: Diabetes Insipidus - Past Surgical History Past Surgical History: Yes: AICD, Hernia Repair, Joint Replacement - Alcohol/Substance Use Hx Alcohol Use: No - Smoking History Smoking history: Never smoked Have you smoked in the past 12 months: No Aproximately how many cigarettes per day: 0 Home Medications - Allergies Allergies/Adverse Reactions: Allergies Allergy/AdvReac Type Severity Reaction Status Date / Time benazepril Allergy Severe Swelling Verified 10/15/18 10:11 Home Medications Medication Instructions Recorded Atorvastatin Ca [Lipitor] 10 mg PO HS 10/15/17 Carvedilol [Coreg -] 18.75 mg PO BID 10/15/17 Sitagliptin Phosphate [Januvia] 100 mg PO DAILY 10/15/17 Pantoprazole Sodium [Protonix] 40 mg PO DAILY #4 tablet. 10/20/17 Rivaroxaban [Xarelto] 15 mg PO DAILY #30 tab 11/02/17 Amiodarone HCl [Cordarone -] 400 mg PO DAILY 10/15/18 Glyburide 10 mg PO BID 10/15/18 Torsemide [Demadex -] 200 mg PO BID 10/15/18 Review of Systems - Review of Systems unable to obtain, intubated Vital signs: Period Temp Pulse Resp BP Sys/Lambert Pulse Ox Last 24 Hr 98 F-99.1 F 64-126 14-24 100-162/56-95 96-100 Constitutional: Yes: intubated, sedated Eyes: No: Sclera Icterus HENT: No: Nasal Congestion Neck: No: Decreased ROM Respiratory: Yes: CTA Bilaterally (decr diffusely, anteriorly ausculated) No: Accessory Muscle Use, Wheezes Gastrointestinal: Yes: Normal Bowel Sounds. No: Distention, Hepatomegaly, Palpable Mass, Tenderness Cardiovascular: Yes: Pulse Irregular JVD: yes Carotid Bruit: No PMI: Non-Displaced Heart Sounds: Yes: S1, S2. No: Gallop Murmur: No: Systolic Murmur, Diastolic Murmur Musculoskeletal: Yes: Other (No kyphosis) Extremities: No: Cold, Cyanosis Edema: Yes (3+ pretib with weeping) Peripheral Pulses: 2+ Left Carotid, 2+ Right Carotid, 2+ Left Doralis Pedis, 2+ Right Dorsalis Pedis Integumentary: No: Jaundice Neurological: Yes: Alert, Oriented (x3) Psychiatric: No: Agitated Laboratory Last Values WBC 14.0 K/mm3 (4.0-10.0) H 10/15/18 10:11 RBC 2.96 M/mm3 (4.00-5.60) L 10/15/18 10:11 Hgb 8.4 GM/dL (11.7-16.9) L 10/15/18 10:11 Hct 25.5 % (35.4-49) L 10/15/18 10:11 MCV 86.2 fl (80-96) 10/15/18 10:11 MCH 28.4 pg (25.7-33.7) 10/15/18 10:11 MCHC 32.9 g/dl (32.0-35.9) 10/15/18 10:11 RDW 16.4 % (11.9-15.9) H 10/15/18 10:11 Plt Count 185 K/MM3 (134-434) 10/15/18 10:11 MPV 9.3 fl (7.5-11.1) 10/15/18 10:11 Absolute Neuts (auto) 11.5 K/mm3 (1.5-8.0) H 10/15/18 10:11 Neutrophils % 82.2 % (42.8-82.8) 10/15/18 10:11 Lymphocytes % 8.8 % (8-40) 10/15/18 10:11 Monocytes % 8.9 % (3.8-10.2) 10/15/18 10:11 Eosinophils % 0.0 % (0-4.5) D 10/15/18 10:11 Basophils % 0.1 % (0-2.0) 10/15/18 10:11 Nucleated RBC % 0 % (0-0) 10/15/18 10:11 PT with INR 17.50 SEC (9.7-13.0) H 10/15/18 10:11 INR 1.48 (0.83-1.09) H 10/15/18 10:11 PTT (Actin FS) 33.3 SECONDS (25.2-36.5) 10/15/18 10:11 Anticoagulation Therapy No Result Required. 10/15/18 10:30 Puncture Site Right radial 10/15/18 10:30 ABG pH 7.26 (7.35-7.45) L 10/15/18 10:30 ABG pCO2 at Pt Temp 58.2 mmHg (35-45) H 10/15/18 10:30 ABG pO2 at Pt Temp 286 mmHg (80-105) H 10/15/18 10:30 ABG HCO3 24.9 mmol/L (22-27) 10/15/18 10:30 ABG O2 Sat (Measured) 99.7 % (95-98) H 10/15/18 10:30 ABG O2 Content 11.4 % vol (15-22) L 10/15/18 10:30 ABG Base Excess -1.8 meq/l (-2-2) 10/15/18 10:30 Junior Test Positive 10/15/18 10:30 O2 Delivery Device No Result Required. 10/15/18 10:30 Oxygen Flow Rate Yes 10/15/18 10:30 Vent Mode No Result Required. 10/15/18 10:30 Vent Rate No Result Required. 10/15/18 10:30 Mechanical Rate No Result Required. 10/15/18 10:30 Pressure Support Vent No Result Required. 10/15/18 10:30 Sodium 147 mmol/L (136-145) H 10/15/18 10:11 Potassium 4.7 mmol/L (3.5-5.1) 10/15/18 10:11 Chloride 112 mmol/L (98-107) H 10/15/18 10:11 Carbon Dioxide 24 mmol/L (21-32) 10/15/18 10:11 Anion Gap 11 MMOL/L (8-16) 10/15/18 10:11 BUN 90 mg/dL (7-18) H 10/15/18 10:11 Creatinine 1.7 mg/dL (0.55-1.3) H 10/15/18 10:11 Creat Clearance w eGFR 38.97 (>60) 10/15/18 10:11 Random Glucose 248 mg/dL (74-106) H 10/15/18 10:11 Lactic Acid 5.0 mmol/L (0.4-2.0) H* 10/15/18 10:11 Calcium 8.8 mg/dL (8.5-10.1) 10/15/18 10:11 Magnesium 2.3 mg/dL (1.8-2.4) 10/15/18 10:11 Total Bilirubin 1.9 mg/dL (0.2-1) H 10/15/18 10:11 AST 20 U/L (15-37) 10/15/18 10:11 ALT 17 U/L (13-61) 10/15/18 10:11 Alkaline Phosphatase 146 U/L (45-117) H 10/15/18 10:11 Creatine Kinase 106 U/L (26-308) 10/15/18 10:11 Troponin I 0.03 ng/ml (0.00-0.05) 10/15/18 10:11 B-Natriuretic Peptide 1193.4 pg/ml (5-450) H 10/15/18 10:11 Total Protein 6.3 g/dl (6.4-8.2) L 10/15/18 10:11 Albumin 3.0 g/dl (3.4-5.0) L 10/15/18 10:11 Urine Color Yellow 10/15/18 10:40 Urine Appearance Clear 10/15/18 10:40 Urine pH 5.0 (5.0-8.0) D 10/15/18 10:40 Ur Specific [place] 1.015 (1.010-1.035) 10/15/18 10:40 Urine Protein Negative (NEGATIVE) 10/15/18 10:40 Urine Glucose (UA) Negative (NEGATIVE) 10/15/18 10:40 Urine Ketones Trace (NEGATIVE) H 10/15/18 10:40 Urine Blood Negative (NEGATIVE) 10/15/18 10:40 Urine Nitrite Negative (NEGATIVE) 10/15/18 10:40 Urine Bilirubin Negative (NEGATIVE) 10/15/18 10:40 Urine Urobilinogen 1.0 mg/dL (0.2-1.0) 10/15/18 10:40 Ur Leukocyte Esterase Trace (NEGATIVE) 10/15/18 10:40 Urine WBC (Auto) 0 /hpf (0-5) 10/15/18 10:40 Urine RBC (Auto) 0 /hpf (0-4) 10/15/18 10:40 Urine Casts (Auto) 0 /lpf (0-8) 10/15/18 10:40 U Epithel Cells (Auto) 0.6 /HPF (0-5/HPF) 10/15/18 10:40 Urine Bacteria (Auto) 1.2 /hpf (NEGATIVE) 10/15/18 10:40 Stool Occult Blood Positive (NEGATIVE) 10/15/18 10:31 Blood Type A POSITIVE 10/15/18 10:11 Antibody Screen Negative 10/15/18 10:11 Crossmatch See Detail 10/15/18 10:11 Assessment/Plan CXR: L base consolidation vs atelectasis vs effusion CTA chest: thoracic aorta aneurysm 4.8 cm, no dissection. consolidation/ bibasilar atelectasis tele: afib, rate ok 82M h/o chronic systolic HF, ICD, afib on xarelto, epistaxis p/w coffee ground emesis, alt mental status coffee ground emesis - history of epistaxis, no hx GI bleed - GI consulted afib - on carvedilol, digoxin at home - history of epistaxis requiring transfusions, cauterization - holding xarelto - holding PO meds, diltiazem IV PRN for tachycardia paroxysmal VT, s/p ICD - multiple prior episodes, prior shock - monitoring on tele Chronic systolic HF - EF 40-45%echo 09/2017 - on torsemide, carvedilol at home - per patient's in the last 1-2 weeks more edema and short of breath. Had been on torsemide 100 mg BID at home which was decreased at least a month ago, in the last week he saw his PCP where torsemide was increased to 100 mg BID - appears volume overloaded here - IV lasix when BP stable (currently hypotensive after receiving sedation, improving) aneurysm of ascending aorta - prior reports 5.0 cm, yearly imaging with CT chest and consideration for surgery if >6 cm - 4.8 cm here, no dissection CONSTANTINO - refuses CPAP at home HLD - on statin at home, holding while NPO DM - manage per primary
--- NOTE | 2018-10-15 14:46 | CON.GI ---
Consult Consult Specialty:: Gastroenterology ( covering the [facility] GI Service) Referred by:: Fani Laura MD Reason for Consultation:: GI bleeding - History of Present Illness Chief Complaint: Intubated History of Present Illness: 82M was found to be confused and in a pool of coffee ground emesis and melena this AM. The history is given by the and son. He has a history of recurrent epistaxis but no GI bleeding. he last had a colonoscopy remotely with Dr Stanislav Lindsay his PMD at [facility] which his reports was normal. She doesn't recall his ever having had a EGD. Recently he has been complaining of increasing fatigue, DICKENS and lower extremity edema. He was started on levothyroxine just a week ago and his dosage of diuretic were recently increased. They report that he continues to eat well. - History Source History Provided By: Family Member Limitations to Obtaining History: Intubated - Past Medical History Cardio/Vascular: Yes: AFIB, Aneurysm (thoracic aneurysm), CAD, CHF (EF 40-50% on echo), HTN, Hyperlipdemia, Other (has defibrillator/PPM, was shocked several weeks ago) Pulmonary: Yes: Sleep Apnea Gastrointestinal: Yes: Diverticulosis, Other (umbilical hernia) Renal/: Yes: Renal Failure (renal insufficiency), BPH, Hematuria, Renal Calculi (s/p stenting and ESWLs ) Endocrine: Yes: Diabetes Mellitus, Hypothyroidism Dermatology: Yes: Basal Cell (basal cell cancer excised from the LLE ) - Past Surgical History Past Surgical History: Yes: AICD, Colonoscopy, Hernia Repair (RIH and LIH), Joint Replacement (right hip), TURP Additional Surgical History: LLE Mohs surgery for basal cell cancer - Alcohol/Substance Use Hx Alcohol Use: Yes (rare) History of Substance Use: reports: None - Smoking History Smoking history: Never smoked Have you smoked in the past 12 months: No Aproximately how many cigarettes per day: 0 - Social History Usual Living Arrangement: With Spouse ADL: Family Assistance 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 History of Recent Travel: No Home Medications - Allergies Allergies/Adverse Reactions: Allergies Allergy/AdvReac Type Severity Reaction Status Date / Time benazepril Allergy Severe Swelling Verified 10/15/18 10:11 - Home Medications Home Medications: Ambulatory Orders Atorvastatin Ca [Lipitor] 10 mg PO HS 10/15/17 Carvedilol [Coreg -] 18.75 mg PO BID 10/15/17 Sitagliptin Phosphate [Januvia] 100 mg PO DAILY 10/15/17 Pantoprazole Sodium [Protonix] 40 mg PO DAILY #4 tablet. 10/20/17 Rivaroxaban [Xarelto] 15 mg PO DAILY #30 tab 11/02/17 Amiodarone HCl [Cordarone -] 400 mg PO DAILY 10/15/18 Glyburide 10 mg PO BID 10/15/18 Torsemide [Demadex -] 200 mg PO BID 10/15/18 Family Disease History - Family Disease History Family Disease History: Diabetes: Father ( in his 60;s), Heart Disease: Father, CA: Brother (prostate and brain cancer), Other: Grandparent (lived to ) Review of Systems Unable to obtain ROS, reason: intubated Physical Exam-GI Vital Signs: Vital Signs Temperature 99 F 10/15/18 13:04 Pulse Rate 89 10/15/18 13:04 Respiratory Rate 20 10/15/18 13:30 Blood Pressure 100/65 10/15/18 13:04 O2 Sat by Pulse Oximetry (%) 100 10/15/18 13:04 CBC,CMP WBC 14.0 K/mm3 (4.0-10.0) H 10/15/18 10:11 RBC 2.96 M/mm3 (4.00-5.60) L 10/15/18 10:11 Hgb 8.4 GM/dL (11.7-16.9) L 10/15/18 10:11 Hct 25.5 % (35.4-49) L 10/15/18 10:11 MCV 86.2 fl (80-96) 10/15/18 10:11 MCH 28.4 pg (25.7-33.7) 10/15/18 10:11 MCHC 32.9 g/dl (32.0-35.9) 10/15/18 10:11 RDW 16.4 % (11.9-15.9) H 10/15/18 10:11 Plt Count 185 K/MM3 (134-434) 10/15/18 10:11 MPV 9.3 fl (7.5-11.1) 10/15/18 10:11 Absolute Neuts (auto) 11.5 K/mm3 (1.5-8.0) H 10/15/18 10:11 Neutrophils % 82.2 % (42.8-82.8) 10/15/18 10:11 Lymphocytes % 8.8 % (8-40) 10/15/18 10:11 Monocytes % 8.9 % (3.8-10.2) 10/15/18 10:11 Eosinophils % 0.0 % (0-4.5) D 10/15/18 10:11 Basophils % 0.1 % (0-2.0) 10/15/18 10:11 Nucleated RBC % 0 % (0-0) 10/15/18 10:11 Sodium 147 mmol/L (136-145) H 10/15/18 10:11 Potassium 4.7 mmol/L (3.5-5.1) 10/15/18 10:11 Chloride 112 mmol/L (98-107) H 10/15/18 10:11 Carbon Dioxide 24 mmol/L (21-32) 10/15/18 10:11 Anion Gap 11 MMOL/L (8-16) 10/15/18 10:11 BUN 90 mg/dL (7-18) H 10/15/18 10:11 Creatinine 1.7 mg/dL (0.55-1.3) H 10/15/18 10:11 Creat Clearance w eGFR 38.97 (>60) 10/15/18 10:11 Random Glucose 248 mg/dL (74-106) H 10/15/18 10:11 Lactic Acid 5.0 mmol/L (0.4-2.0) H* 10/15/18 10:11 Calcium 8.8 mg/dL (8.5-10.1) 10/15/18 10:11 Magnesium 2.3 mg/dL (1.8-2.4) 10/15/18 10:11 Total Bilirubin 1.9 mg/dL (0.2-1) H 10/15/18 10:11 AST 20 U/L (15-37) 10/15/18 10:11 ALT 17 U/L (13-61) 10/15/18 10:11 Alkaline Phosphatase 146 U/L (45-117) H 10/15/18 10:11 Creatine Kinase 106 U/L (26-308) 10/15/18 10:11 Troponin I 0.03 ng/ml (0.00-0.05) 10/15/18 10:11 B-Natriuretic Peptide 1193.4 pg/ml (5-450) H 10/15/18 10:11 Total Protein 6.3 g/dl (6.4-8.2) L 10/15/18 10:11 Albumin 3.0 g/dl (3.4-5.0) L 10/15/18 10:11 Current Medications Generic Name Dose Route Start Last Admin Trade Name Freq PRN Reason Stop Dose Admin Chlorhexidine Gluconate 1 applic 10/15/18 22:00 Hibiclens For Decolonization - TP HS USHA Fentanyl 50 mcg 10/15/18 13:48 Sublimaze Injection - IVPUSH 10/16/18 13:59 Q1H PRN PAIN Propofol 1,000,000 mcg in 100 mls @ 4.491 mls/hr 10/15/18 12:00 10/15/18 12: 23 Diprivan - IVPB 5 mcg/kg/min TITR USHA 4.491 mls/hr Administration Protocol 5 MCG/KG/MIN Pantoprazole Sodium 80 mg/ 100 mls @ 10 mls/hr 10/15/18 14:00 Sodium Chloride IVPB Q10H USHA 8 MG/HR Pantoprazole Sodium 80 mg/ 100 mls @ 10 mls/hr 10/15/18 14:30 Sodium Chloride IVPB Q10H USHA 8 MG/HR Insulin Aspart 1 vial 10/15/18 16:30 Novolog Vial Sliding Scale - SQ TIDAC USHA Protocol Midazolam HCl 2 mg 10/15/18 14:09 Versed - IVPUSH Q2H PRN AGITATION Mupirocin 1 applic 10/15/18 22:00 Bactroban Ointment (For Decolonization) - NS 10/20/18 21:59 BID USHA Constitutional: Yes: Other (Intubated) HENT: Yes: Atraumatic Neck: Yes: Supple Cardiovascular: Yes: Pulse Irregular, Other (left defibrillator) Respiratory: Yes: Rhonchi (bilaterally) Gastrointestinal Inspection: Yes: Hernia (umbilical hernia), Scars (RIH and LIH) , Other (obese, fungal infection in inguinal areas) ...Auscultate: Yes: Hypoactive Bowel Sounds ...Palpate: Yes: Soft, Other (nontender) ...Rectal Exam: Yes: Guaiac Positive (2+ prostate, dark brown guaiac positive stool) Edema: Yes Edema: LLE: 4+, RLE: 4+ Neurological: Yes: Other (sedated on ventilator) Labs: CBC, BMP 10/15/18 10:11 10/15/18 10:11 INR, PTT INR 1.48 (0.83-1.09) H 10/15/18 10:11 Laboratory Tests 06/01/11 10/14/17 10/20/17 06:15 20:22 06:20 Hgb 14.5 10.9 L D 9.6 L Total Bilirubin AST ALT Alkaline Phosphatase 11/01/17 11/28/17 10/15/18 17:35 05:30 10:11 Hgb 6.6 L* D 9.3 L 8.4 L Total Bilirubin AST ALT Alkaline Phosphatase 10/15/18 10:11 Hgb Total Bilirubin 1.9 H AST 20 ALT 17 Alkaline Phosphatase 146 H Imaging - Results Cat Scan: Report Reviewed ( Final Report CT ABDOMEN/PELVIS CTA W/WO CONTR Show Printer-Friendly Version Patient Name: Neptali Strauss : 1935 ID: [id number] Study Date: 15-Oct-2018 10:57 Ishan Rain Name: NEPTALI STRAUSS DEPARTMENT OF RADIOLOGY Phys: Jeanette Szymanski MD : 1935 Age: 82 Sex: M [facility] Acct: [id number] Loc: [address] Exam Date: 10/15/18 Status: [place] [address] Unit Number: [id number] EXAM#: TYPE/EXAM: RESULT: [id number] CT/CHEST CTA CT/ABDOMEN/PELVIS CTA W/WO CONTR HISTORY PROVIDED: AAA. TECHNIQUE: Sequential axial images were obtained from the thoracic inlet through the symphysis pubis following the administration of intravenous contrast material. CTA protocol for the aorta was utilized, including coronal and sagittal MIP images. The thoracic aorta is moderately ectatic with mild aneurysmal dilatation. The ascending aorta measures 4.8 cm, the aortic arch measures 4.2 cm and the descending thoracic aorta measures 3.3 cm in widest AP diameter. There is no evidence of aortic dissection. The heart is enlarged. No mediastinal masses or fluid collections are identified. There is an endotracheal tube present with distal tip above the yehuda. There is consolidation/atelectasis noted within both lower lobes. No pulmonary masses or pleural effusions are identified. The abdominal aorta is ectatic. It is normal in caliber with no evidence of aneurysmal dilatation or dissection. The liver, spleen, pancreas, adrenal glands and kidneys demonstrate no significant abnormalities. There are multiple left renal cysts. There is no evidence of intra-abdominal or retroperitoneal lymphadenopathy or fluid collections. There is no evidence of pneumoperitoneum, bowel obstruction or intra-abdominal abscess. There is no CT evidence of acute appendicitis. There is extensive colonic diverticulosis without evidence of acute diverticulitis. Examination of the pelvis demonstrates no evidence of pelvic masses, fluid collections or lymphadenopathy. There is no evidence of acute bony pathology. IMPRESSION: 1. Aneurysmal dilatation of the thoracic aorta without evidence of dissection. 2. No evidence of AAA or abdominal aortic dissection. 3. Bilateral lower lobe consolidation/ atelectasis. 4. No acute pathology within the abdomen or pelvis. Please see above discussion. Reported By: Steve Loyola MD 10/15/18 1231 Technologist: Halie Montana Transcribed Date/Time: 10/15/18 1231 Shipping And Receiving Material Handler: Steve Loyola Printed Date/Time: By: Signed by: Steve Loyola Signed on: 15-Oct-2018 12:32) Problem List - Problems (1) Upper GI bleed Assessment/Plan: The NG tube was lavaged and yielded bloody return which rapidly lavaged clear. Suspect bleeding from stress gastritis or perhaps an ulcer. Portal gastropathy is also possible as LFTs suggest congestive hepatopathy. Bleeding from epistaxis is another possibility. Agree with PPI drip and following Hbs. I have proposed EGD to this and daughter and informed them of the potential for such complications as perforation and hemorrhage. The Shilpa has signed an informed consent. I will schedule it for Wednesday with Dr Guzman but am prepared to do it emergently if called for. Will stop Xarelto Code(s): K92.2 - GASTROINTESTINAL HEMORRHAGE, UNSPECIFIED (2) Abnormal liver function tests Assessment/Plan: Suspect congestive hepatopathy from cor pulmonale but will screen for other etiologies Code(s): R94.5 - ABNORMAL RESULTS OF LIVER FUNCTION STUDIES (3) Hypothyroidism Code(s): E03.9 - HYPOTHYROIDISM, UNSPECIFIED (4) Renal insufficiency Code(s): N28.9 - DISORDER OF KIDNEY AND URETER, UNSPECIFIED (5) Morbid exogenous obesity Code(s): E66.01 - MORBID (SEVERE) OBESITY DUE TO EXCESS CALORIES (6) Sleep apnea Code(s): G47.30 - SLEEP APNEA, UNSPECIFIED (7) Diabetic neuropathy Code(s): E11.40 - TYPE 2 DIABETES MELLITUS WITH DIABETIC NEUROPATHY, UNSP (8) Atrial fibrillation Code(s): I48.91 - UNSPECIFIED ATRIAL FIBRILLATION (9) CHF (congestive heart failure) Code(s): I50.9 - HEART FAILURE, UNSPECIFIED (10) Diabetes mellitus Code(s): E11.9 - TYPE 2 DIABETES MELLITUS WITHOUT COMPLICATIONS (11) Thoracic aortic aneurysm Code(s): I71.2 - THORACIC AORTIC ANEURYSM, WITHOUT RUPTURE (12) Venous stasis Code(s): I87.8 - OTHER SPECIFIED DISORDERS OF VEINS Assessment/Plan Impression; UGI bleed from erosive gastritis or ulcer. May alternatively have portal gastropathy from congestive hepatopathy. He may alternatively have swallowed blood from epistaxis to which he is prone. Abnormal LFTs- likely congestive hepatopathy Plan: PPI drip Serial CBCs Transfuse as necessary EGD on Wednesday or sooner as needed Liver evaluation
[2018-10-15] MEDS ORDERED: PHYTONADIONE 10 MG/1 ML AMP IVPB ONE (15:27)
[2018-10-15 16:13] LABS: HEMATOCRIT 24.1 % (35.4-49); HEMOGLOBIN 7.9 GM/dL (11.7-16.9); MCH 28.7 pg (25.7-33.7); MCHC 32.6 g/dl (32.0-35.9); MEAN CELL VOLUME 88.1 fl (80-96); MEAN PLT VOLUME 8.6 fl (7.5-11.1); PLATELET COUNT 162 K/MM3 (134-434); RBC 2.74 M/mm3 (4.00-5.60); RDW 16.5 % (11.9-15.9); WHITE BLOOD COUNT 17.5 K/mm3 (4.0-10.0)
[2018-10-15] MEDS: PANTOPRAZOLE SODIUM 80 MG in SODIUM CHLORIDE 100 ML IVPB SCH ×2 (16:25→23:29)
[2018-10-15 16:38] LABS: ARTERIAL BLD GAS O2 SATURATION 98.3 % (95-98); ARTERIAL BLOOD GAS BASE EXCESS 0.5 meq/l (-2-2); ARTERIAL BLOOD GAS PCO2 60.7 mmHg (35-45); ARTERIAL BLOOD GAS PO2 135 mmHg (80-105); ARTERIAL BLOOD GAS pH 7.27 (7.35-7.45)
[2018-10-15 16:41] LABS: ALLENS TEST POSITIVE
[2018-10-15] MEDS: INSULIN SLIDING SCALE (NOVOLOG) 1 VIAL SQ SCH (17:02)
[2018-10-15 21:54] LABS: HEMATOCRIT 24.1 % (35.4-49); HEMOGLOBIN 7.8 GM/dL (11.7-16.9); MCHC 32.4 g/dl (32.0-35.9); MEAN CELL VOLUME 89.3 fl (80-96); MEAN PLT VOLUME 8.9 fl (7.5-11.1); PLATELET COUNT 167 K/MM3 (134-434); RDW 16.7 % (11.9-15.9); WHITE BLOOD COUNT 20.1 K/mm3 (4.0-10.0)
[2018-10-15] MEDS: MUPIROCIN 2% TOPICAL OINTMENT FOR DECOLONIZATION NS SCH (22:14)
[2018-10-15] MEDS: CHLORHEXIDINE GLUCONATE 4% CLEANSER FOR DECOLONIZATION TP SCH (22:15)
[2018-10-15] MEDS: NYSTATIN 100,000 UNIT/GM TOPICAL CREAM 15 GM TUBE TP SCH (22:15)
[2018-10-15] MEDS ORDERED: AMPICILLIN NA/SULBACTAM NA 1.5 GM VIAL ONE (22:20)
[2018-10-15] MEDS ORDERED: SODIUM CHLORIDE 100 ML IVPB ONE (22:20)
[2018-10-15] MEDS: AMPICILLIN NA/SULBACTAM NA 1.5 GM in SODIUM CHLORIDE 100 ML IVPB SCH (22:24)
[2018-10-15 22:42] LABS: ANION GAP 6 MMOL/L (8-16); CALCIUM 7.8 mg/dL (8.5-10.1); CHLORIDE 116 mmol/L (98-107); CO2 29 mmol/L (21-32); CREATININE 1.9 mg/dL (0.55-1.3); GLUCOSE,RANDOM 220 mg/dL (74-106); SODIUM 151 mmol/L (136-145)
[2018-10-15 22:44] LABS: BLOOD UREA NITROGEN 105 mg/dL (7-18)
[2018-10-16] MEDS ORDERED: AMPICILLIN NA/SULBACTAM NA 1.5 GM VIAL ONE ×4 (02:59→21:28)
[2018-10-16] MEDS ORDERED: SODIUM CHLORIDE 100 ML IVPB ONE ×4 (02:59→21:28)
[2018-10-16] MEDS: AMPICILLIN NA/SULBACTAM NA 1.5 GM in SODIUM CHLORIDE 100 ML IVPB SCH ×4 (03:01→21:31)
[2018-10-16 05:52] LABS: ARTERIAL BLD GAS O2 SATURATION 97.9 % (95-98); ARTERIAL BLOOD GAS BASE EXCESS -0.3 meq/l (-2-2); ARTERIAL BLOOD GAS PCO2 56.1 mmHg (35-45); ARTERIAL BLOOD GAS PO2 115 mmHg (80-105); ARTERIAL BLOOD GAS pH 7.29 (7.35-7.45)
[2018-10-16 05:55] LABS: ALLENS TEST POSITIVE
[2018-10-16 06:10] LABS: BASO % 0.1 % (0-2.0); HEMATOCRIT 26.9 % (35.4-49); HEMOGLOBIN 8.9 GM/dL (11.7-16.9); LYMPH % 6.8 % (8-40); MCH 29.4 pg (25.7-33.7); MCHC 33.2 g/dl (32.0-35.9); MEAN CELL VOLUME 88.5 fl (80-96); MEAN PLT VOLUME 9.1 fl (7.5-11.1); MONO % 12.6 % (3.8-10.2); NEUT % 80.5 % (42.8-82.8); PLATELET COUNT 172 K/MM3 (134-434); RBC 3.03 M/mm3 (4.00-5.60); RDW 15.6 % (11.9-15.9); WHITE BLOOD COUNT 24.3 K/mm3 (4.0-10.0)
[2018-10-16 06:31] LABS: ALBUMIN 2.4 g/dl (3.4-5.0); BILIRUBIN,TOTAL 2.8 mg/dL (0.2-1); TOT PROT 5.2 g/dl (6.4-8.2)
[2018-10-16] MEDS: INSULIN SLIDING SCALE (NOVOLOG) 1 VIAL SQ SCH ×3 (06:33→18:07)
[2018-10-16 06:34] LABS: ALBUMIN 2.4 g/dl (3.4-5.0); ALK PHOS 108 U/L (45-117); ANION GAP 7 MMOL/L (8-16); BILIRUBIN,TOTAL 2.8 mg/dL (0.2-1); CALCIUM 7.9 mg/dL (8.5-10.1); CHLORIDE 117 mmol/L (98-107); CO2 28 mmol/L (21-32); CREATININE 2.2 mg/dL (0.55-1.3); GLUCOSE,RANDOM 228 mg/dL (74-106); MAGNESIUM 2.6 mg/dL (1.8-2.4); N-TERMINAL BNP 1330.1 pg/ml (5-450); PHOSPHOROUS 5.1 mg/dL (2.5-4.9); POTASSIUM 4.9 mmol/L (3.5-5.1); SGOT/AST 20 U/L (15-37); SGPT/ALT 14 U/L (13-61); SODIUM 152 mmol/L (136-145); TOT PROT 5.2 g/dl (6.4-8.2)
[2018-10-16 06:36] LABS: BLOOD UREA NITROGEN 116 mg/dL (7-18)
[2018-10-16 06:38] LABS: INR 1.34 (0.83-1.09); PROTHROMBIN TIME (PATIENT) 15.8 SEC (9.7-13.0)
[2018-10-16 06:41] LABS: ACTIVATED PTT 29.9 SECONDS (25.2-36.5)
--- NOTE | 2018-10-16 07:05 | PN ---
Progress Note (short form) - Note Progress Note: Pulm/CCM Pt seen and examined in ICU 24Hr: -total of 500cc of blood from NGT -Hgb 8.4-->7.8 with 2prbc, 7.8 to 8.9 with 2 more -BUN/Cr still rising -resp acidosis remains problematic -possible EGD today, though appears to have hemostasis now Vital Signs Temp 99.5 F 10/16/18 06:00 Pulse 103 H 10/16/18 06:00 Resp 26 H 10/16/18 06:50 BP 105/56 L 10/16/18 06:00 Pulse Ox 99 10/15/18 21:00 Intake & Output 10/15/18 10/15/18 10/16/18 11:59 23:59 11:59 Intake Total 450 550 Output Total 350 2600 1050 Balance -350 -2150 -500 Weight 149.685 kg 138 kg 139.5 kg Intake: IVPB 100 200 Packed Cells 350 350 Output: Drainage 500 150 NGT 500 150 Urine 350 2100 900 Villa 350 2100 900 Other: Voiding Method Toilet Indwelling Catheter Bowel Movement No: pt. had BM at home prior to coming in. # Bowel Movements 1 Height 6 ft 6 ft Body Mass Index (BMI) 44.7 41.2 Weight Measurement Method Built in Bedscale Built in Bedscale Weight Measurement Method Est/Stated by Patient Active Medications Albuterol/Ipratropium (Duoneb -) 1 amp NEB Q4H PRN PRN Reason: SHORTNESS OF BREATH Chlorhexidine Gluconate (Hibiclens For Decolonization -) 1 applic TP HS [facility] Last Admin: 10/15/18 22:15 Dose: 1 applic Fentanyl (Sublimaze Injection -) 50 mcg IVPUSH Q1H PRN PRN Reason: PAIN Stop: 10/16/18 13:59 Last Admin: 10/15/18 16:26 Dose: 50 mcg Propofol (Diprivan -) 1,000,000 mcg in 100 mls @ 4.491 mls/hr IVPB TITR [facility]; Protocol Last Titration: 10/15/18 17:03 Dose: 5 mcg/kg/min, 4.491 mls/hr Pantoprazole Sodium 80 mg/ (Sodium Chloride) 100 mls @ 10 mls/hr IVPB Q10H [facility] Last Admin: 10/15/18 23:29 Dose: 10 mls/hr Ampicillin Sodium/Sulbactam (Sodium 1.5 gm/ Sodium Chloride) 100 mls @ 200 mls/ hr IVPB Q6H-IV [facility] Last Admin: 10/16/18 03:01 Dose: 200 mls/hr Insulin Aspart (Novolog Vial Sliding Scale -) 1 vial SQ TIDAC [facility]; Protocol Last Admin: 10/16/18 06:33 Dose: 2 units Midazolam HCl (Versed -) 2 mg IVPUSH Q2H PRN PRN Reason: AGITATION Last Admin: 10/15/18 16:26 Dose: 2 mg Mupirocin (Bactroban Ointment (For Decolonization) -) 1 applic NS BID [facility] Stop: 10/20/18 21:59 Last Admin: 10/15/18 22:14 Dose: 1 applic Nystatin (Mycostatin Cream -) 1 applic TP BID [facility] Last Admin: 10/15/18 22:15 Dose: 1 applic CBC, BMP 10/16/18 05:30 10/16/18 05:30 ABG Results ABG pH 7.29 (7.35-7.45) L 10/16/18 05:40 ABG pCO2 at Pt Temp 56.1 mmHg (35-45) H 10/16/18 05:40 ABG pO2 at Pt Temp 115 mmHg (80-105) H 10/16/18 05:40 ABG HCO3 26.1 mmol/L (22-27) 10/16/18 05:40 ABG O2 Sat (Measured) 97.9 % (95-98) 10/16/18 05:40 ABG O2 Content 12.1 % vol (15-22) L 10/16/18 05:40 ABG Base Excess -0.3 meq/l (-2-2) 10/16/18 05:40 PE: Gen; Intubated sedated HEENT: PERRL pinpoint, coffee ground emesis in mouth , orally intubated PULM: diminished bases, no wheezes CV: tachy, irreg ABD: soft, +BS EXT: venous stasis, pitting and weeping LE edema NEURO: well sedated, grimaces to noxious CXR: bibasilar R>L atelectesis and scattered infiltrate A/ 82 yo old man with extensive cardiac hx on anticoagulation presenting with coffee ground emesis possible aspiration now intubated. P/ UGIB: -maintain adequate access, has 3x > 20 -protonix gtt -no evidence of liver disease to suspect varix -Dr Ortiz following, will consider EGD this am -NPO, NGT to intermittent suction, monitor output -q6 CBC until stable x 2 or EGD Pulm: Possible aspiration/intubated for airway control: now with worsening gas exchange 2/2 atelectesis and pneumonitis -most aspiration is non-infectious pneumonitis -given rising wbc, Unasyn q 6 -full vent support, light sedation for vent synchron -repeat cxr now Cardiovascular disease: total body volume overload, CHF -hold antihypertenisves and anticoagulation -rate/bp control with IV agents as needed -will need diuresis once stable RENEA, Hypernatremia: 2/2 acute blood loss, shock -BUN elevation likely due to gi blood products, Cr still rising but non oliguric -will need free water and diuresis as improves. SCD for dvt prophylaxsis (unable due to open venous stasis with oozing Protonix gtt for GI prophy ICU monitoring Jose Angel KUMARP [id number] 35min CCT spent examining patient formulating plan
[2018-10-16] MEDS ORDERED: DEXTROSE 5%-0.45% SALINE 1,000 ML IV SCH (07:15)
[2018-10-16] MEDS ORDERED: PT OWN MED DRAWER 7, Y5N ONE (08:35)
[2018-10-16 09:28] LABS: ARTERIAL BLOOD GAS PCO2 53.6 mmHg (35-45); ARTERIAL BLOOD GAS PO2 121 mmHg (80-105); ARTERIAL BLOOD GAS pH 7.32 (7.35-7.45)
[2018-10-16 09:29] LABS: ALLENS TEST POSITIVE; ARTERIAL BLD GAS O2 SATURATION 98.2 % (95-98); ARTERIAL BLOOD GAS BASE EXCESS 0.7 meq/l (-2-2)
--- NOTE | 2018-10-16 09:42 | PN ---
Progress Note (short form) - Note Progress Note: s: intubated, sedated Current Medications Albuterol/Ipratropium (Duoneb -) 1 amp NEB Q4H PRN PRN Reason: SHORTNESS OF BREATH Chlorhexidine Gluconate (Hibiclens For Decolonization -) 1 applic TP HS [facility] Last Admin: 10/15/18 22:15 Dose: 1 applic Fentanyl (Sublimaze Injection -) 50 mcg IVPUSH Q1H PRN PRN Reason: PAIN Stop: 10/16/18 13:59 Last Admin: 10/15/18 16:26 Dose: 50 mcg Propofol (Diprivan -) 1,000,000 mcg in 100 mls @ 4.491 mls/hr IVPB TITR [facility]; Protocol Last Titration: 10/15/18 17:03 Dose: 5 mcg/kg/min, 4.491 mls/hr Pantoprazole Sodium 80 mg/ (Sodium Chloride) 100 mls @ 10 mls/hr IVPB Q10H [facility] Last Admin: 10/15/18 23:29 Dose: 10 mls/hr Ampicillin Sodium/Sulbactam (Sodium 1.5 gm/ Sodium Chloride) 100 mls @ 200 mls/ hr IVPB Q6H-IV [facility] Last Admin: 10/16/18 08:57 Dose: 200 mls/hr Dextrose/Sodium Chloride (D5-1/2ns -) 1,000 mls @ 75 mls/hr IV ASDIR [facility] Last Admin: 10/16/18 08:15 Dose: 75 mls/hr Insulin Aspart (Novolog Vial Sliding Scale -) 1 vial SQ TIDAC [facility]; Protocol Last Admin: 10/16/18 06:33 Dose: 2 units Midazolam HCl (Versed -) 2 mg IVPUSH Q2H PRN PRN Reason: AGITATION Last Admin: 10/15/18 16:26 Dose: 2 mg Mupirocin (Bactroban Ointment (For Decolonization) -) 1 applic NS BID [facility] Stop: 10/20/18 21:59 Last Admin: 10/15/18 22:14 Dose: 1 applic Nystatin (Mycostatin Cream -) 1 applic TP BID [facility] Last Admin: 10/15/18 22:15 Dose: 1 applic Vital Signs Period Temp Pulse Resp BP Sys/Lambert Pulse Ox Last 24 Hr 98 F-100.0 F 64-126 14-30 74-162/49-95 95-100 Constitutional: Yes: intubated, sedated Eyes: No: Sclera Icterus HENT: No: Nasal Congestion Neck: No: Decreased ROM Respiratory: Yes: CTA Bilaterally (decr diffusely, anteriorly ausculated) No: Accessory Muscle Use, Wheezes Gastrointestinal: Yes: Normal Bowel Sounds. No: Distention, Hepatomegaly, Palpable Mass, Tenderness Cardiovascular: Yes: Pulse Irregular JVD: yes Carotid Bruit: No PMI: Non-Displaced Heart Sounds: Yes: S1, S2. 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 consolidation/ bibasilar atelectasis tele: afib, occasional RVR 80M h/o chronic systolic HF, ICD, afib on xarelto, epistaxis p/w coffee ground emesis, alt mental status coffee ground emesis - history of epistaxis, no hx GI bleed - transfuse per critical care - GI consulted, plan for EGD afib - on carvedilol, digoxin at home - history of epistaxis requiring transfusions, cauterization - holding xarelto - holding PO meds, diltiazem IV PRN for tachycardia paroxysmal VT, s/p ICD - multiple prior episodes, prior shock - monitoring on tele Chronic systolic HF - EF 40-45%echo 09/2017 - on torsemide, carvedilol at home - per patient's in the last 1-2 weeks more edema and short of breath. Had been on torsemide 100 mg BID at home which was decreased at least a month ago, in the last week he saw his PCP where torsemide was increased to 100 mg BID - appears volume overloaded here, however likely intravascular dry, hypernatremic - defer diuretics at this point aneurysm of ascending aorta - prior reports 5.0 cm, yearly imaging with CT chest and consideration for surgery if >6 cm - 4.8 cm here, no dissection CONSTANTINO - refuses CPAP at home HLD - on statin at home, holding while NPO DM - manage per primary estimated critical care time 35 min
[2018-10-16] MEDS: PANTOPRAZOLE SODIUM 80 MG in SODIUM CHLORIDE 100 ML IVPB SCH ×2 (10:40→21:00)
[2018-10-16] MEDS: NYSTATIN 100,000 UNIT/GM TOPICAL CREAM 15 GM TUBE TP SCH ×2 (10:41→21:33)
[2018-10-16] MEDS: MUPIROCIN 2% TOPICAL OINTMENT FOR DECOLONIZATION NS SCH ×2 (10:41→21:32)
[2018-10-16 10:55] LABS: ANISOCYTOSIS 0; MACROCYTOSIS 0; OVALOCYTE 1+; PLATELET ESTIMATE NORMAL
--- NOTE | 2018-10-16 11:01 | PN ---
Progress Note, Physician History of Present Illness: inutabted and sedated jameson in place NGT in place MV on pantaprazole drip on propafol drip - Current Medication List Current Medications: Active Medications Albuterol/Ipratropium (Duoneb -) 1 amp NEB Q4H PRN PRN Reason: SHORTNESS OF BREATH Chlorhexidine Gluconate (Hibiclens For Decolonization -) 1 applic TP HS [facility] Last Admin: 10/15/18 22:15 Dose: 1 applic Fentanyl (Sublimaze Injection -) 50 mcg IVPUSH Q1H PRN PRN Reason: PAIN Stop: 10/16/18 13:59 Last Admin: 10/15/18 16:26 Dose: 50 mcg Propofol (Diprivan -) 1,000,000 mcg in 100 mls @ 4.491 mls/hr IVPB TITR [facility]; Protocol Last Titration: 10/15/18 17:03 Dose: 5 mcg/kg/min, 4.491 mls/hr Pantoprazole Sodium 80 mg/ (Sodium Chloride) 100 mls @ 10 mls/hr IVPB Q10H [facility] Last Admin: 10/16/18 10:40 Dose: 10 mls/hr Ampicillin Sodium/Sulbactam (Sodium 1.5 gm/ Sodium Chloride) 100 mls @ 200 mls/ hr IVPB Q6H-IV [facility] Last Admin: 10/16/18 08:57 Dose: 200 mls/hr Dextrose/Sodium Chloride (D5-1/2ns -) 1,000 mls @ 75 mls/hr IV ASDIR [facility] Last Admin: 10/16/18 08:15 Dose: 75 mls/hr Insulin Aspart (Novolog Vial Sliding Scale -) 1 vial SQ TIDAC [facility]; Protocol Last Admin: 10/16/18 06:33 Dose: 2 units Midazolam HCl (Versed -) 2 mg IVPUSH Q2H PRN PRN Reason: AGITATION Last Admin: 10/15/18 16:26 Dose: 2 mg Mupirocin (Bactroban Ointment (For Decolonization) -) 1 applic NS BID [facility] Stop: 10/20/18 21:59 Last Admin: 10/16/18 10:41 Dose: 1 applic Nystatin (Mycostatin Cream -) 1 applic TP BID [facility] Last Admin: 10/16/18 10:41 Dose: 1 applic - Objective Vital Signs: Vital Signs Temperature 99.5 F 10/16/18 06:00 Pulse Rate 98 H 10/16/18 08:26 Respiratory Rate 30 H 10/16/18 08:26 Blood Pressure 105/56 L 10/16/18 06:00 O2 Sat by Pulse Oximetry (%) 95 10/16/18 08:26 Constitutional: Yes: Well Nourished, No Distress, Calm, Obese Eyes: Yes: WNL, Conjunctiva Clear, EOM Intact HENT: Yes: WNL, Atraumatic, Normocephalic Neck: Yes: WNL, Supple, Trachea Midline Cardiovascular: Yes: WNL, Pulse Irregular, S1, S2 Respiratory: Yes: WNL, Regular, CTA Bilaterally, Mechanically Ventilated Gastrointestinal: Yes: WNL, Normal Bowel Sounds, Soft Musculoskeletal: Yes: WNL Extremities: Yes: WNL Edema: Yes Edema: LLE: 4+, RLE: 4+ Peripheral Pulses WNL: Yes Integumentary: Yes: WNL Wound/Incision: Yes: Clean/Dry Neurological: No: WNL, Alert, Oriented, Aphasia, Asterixis, Ataxia, Babinski positive, Babinski negative, Confusion, Cran Nerves II-XII Intact, Dysarthria, Facial Droop, Lethargy, Loss of Sensation, Numbness, Paresthesia, Pre-Existing Deficit, Seizure, Tingling, Tremors, Unresponsive, Unsteady Gait, Weakness, Other Psychiatric: No: WNL, Alert, Oriented, Agitated, Suicidal Ideation, Other Labs: CBC, BMP 10/16/18 05:30 10/16/18 05:30 INR, PTT INR 1.34 (0.83-1.09) H 10/16/18 05:30 - ....Imaging Chest X-ray: Image Reviewed EKG: Image Reviewed Problem List - Problems (1) Upper GI bleed Assessment/Plan: patient is intubated sedate Hb 8.9 after 2 pRBC GI is following possible EGD today vs wednesday keep PT NPO c/w pantaprozole drip trend Hb d/c rivaroxiban if GI scopes the patient without any source of bleeding consider ENT evaluation for the possibility of reoccurring epistaxis bleeding Code(s): K92.2 - GASTROINTESTINAL HEMORRHAGE, UNSPECIFIED (2) Atrial fibrillation Assessment/Plan: c/w rate control d/c rivaroxiban - discussion with the family and structures engineer about continuation of the NOAC due to the repetitive history of bleeding will consider restarting medication when the patient is more hemodynamically stable will follow up with cardiology recommendation Code(s): I48.91 - UNSPECIFIED ATRIAL FIBRILLATION (3) CHF (congestive heart failure) Assessment/Plan: stable cardiology consultation - no change in management at this time device interrogation - medtronic (no ugency) hold hypertensive medication Code(s): I50.9 - HEART FAILURE, UNSPECIFIED (4) Diabetes mellitus Assessment/Plan: ISS NPO Code(s): E11.9 - TYPE 2 DIABETES MELLITUS WITHOUT COMPLICATIONS (5) Thoracic aortic aneurysm Assessment/Plan: stable will follow-up with CT chest when the patient is stable no changes at this time Code(s): I71.2 - THORACIC AORTIC ANEURYSM, WITHOUT RUPTURE Assessment/Plan CCM 35 min
--- NOTE | 2018-10-16 11:18 | PN.GI ---
GI Progress Note Subjective: GI NOte ( covering the [facility] GI Service): Vomited bright red blood last night and had a large black BM today. Has received 4 units of PRBCs. Today however the NG was lavaged by me and found to lavage clear with bile stained fluid yielded. - Objective Vital Signs: Vital Signs Temperature 99.5 F 10/16/18 06:00 Pulse Rate 98 H 10/16/18 08:26 Respiratory Rate 30 H 10/16/18 11:10 Blood Pressure 105/56 L 10/16/18 06:00 O2 Sat by Pulse Oximetry (%) 95 10/16/18 09:00 Laboratory Tests 10/15/18 10/15/18 10/15/18 10:11 10:11 21:42 WBC 14.0 H Hgb 8.4 L 7.8 L PT with INR 17.50 H Potassium BUN Creatinine Ferritin Total Bilirubin Direct Bilirubin Alkaline Phosphatase 10/15/18 10/16/18 10/16/18 21:42 05:30 05:30 WBC 24.3 H Hgb 8.9 L PT with INR 15.80 H Potassium BUN 105 H* Creatinine 1.9 H Ferritin Total Bilirubin Direct Bilirubin Alkaline Phosphatase 10/16/18 10/16/18 05:30 05:30 WBC Hgb PT with INR Potassium 4.9 BUN 116 H* Creatinine 2.2 H Ferritin 22.5 Total Bilirubin 2.8 H Direct Bilirubin 1.0 H Alkaline Phosphatase 109 Constitutional: Other (Intubated and sedated) ...Auscultate: Yes: Normoactive Bowel Sounds ...Palpate: Yes: Soft Labs: CBC, BMP 10/16/18 05:30 10/16/18 05:30 INR, PTT INR 1.34 (0.83-1.09) H 10/16/18 05:30 Assessment/Plan Impression; UGI bleed. Suspect erosive gastritis or ulcer. May alternatively have portal gastropathy from congestive hepatopathy or BAILON. Abnormal LFTs- likely congestive hepatopathy and hemolyzed transfused PRBCs Plan: Continue PPI drip Serial CBCs Transfuse as necessary EGD on Wednesday or sooner as needed Liver evaluation in progress Problem List - Problems (1) Upper GI bleed Code(s): K92.2 - GASTROINTESTINAL HEMORRHAGE, UNSPECIFIED (2) Abnormal liver function tests Code(s): R94.5 - ABNORMAL RESULTS OF LIVER FUNCTION STUDIES (3) Hypothyroidism Code(s): E03.9 - HYPOTHYROIDISM, UNSPECIFIED (4) Renal insufficiency Code(s): N28.9 - DISORDER OF KIDNEY AND URETER, UNSPECIFIED (5) Morbid exogenous obesity Code(s): E66.01 - MORBID (SEVERE) OBESITY DUE TO EXCESS CALORIES (6) Sleep apnea Code(s): G47.30 - SLEEP APNEA, UNSPECIFIED (7) Diabetic neuropathy Code(s): E11.40 - TYPE 2 DIABETES MELLITUS WITH DIABETIC NEUROPATHY, UNSP (8) Atrial fibrillation Code(s): I48.91 - UNSPECIFIED ATRIAL FIBRILLATION (9) CHF (congestive heart failure) Code(s): I50.9 - HEART FAILURE, UNSPECIFIED (10) Diabetes mellitus Code(s): E11.9 - TYPE 2 DIABETES MELLITUS WITHOUT COMPLICATIONS (11) Thoracic aortic aneurysm Code(s): I71.2 - THORACIC AORTIC ANEURYSM, WITHOUT RUPTURE (12) Venous stasis Code(s): I87.8 - OTHER SPECIFIED DISORDERS OF VEINS
[2018-10-16 12:40] LABS: HEMATOCRIT 26.2 % (35.4-49); HEMOGLOBIN 8.6 GM/dL (11.7-16.9); MCH 29.1 pg (25.7-33.7); MCHC 32.7 g/dl (32.0-35.9); MEAN PLT VOLUME 8.8 fl (7.5-11.1); PLATELET COUNT 164 K/MM3 (134-434); RBC 2.94 M/mm3 (4.00-5.60); RDW 16.2 % (11.9-15.9); WHITE BLOOD COUNT 21.6 K/mm3 (4.0-10.0)
[2018-10-16 18:38] LABS: ANION GAP 7 MMOL/L (8-16); CALCIUM 8.2 mg/dL (8.5-10.1); CHLORIDE 120 mmol/L (98-107); CO2 29 mmol/L (21-32); CREATININE 2.3 mg/dL (0.55-1.3); GLUCOSE,RANDOM 290 mg/dL (74-106); POTASSIUM 4.7 mmol/L (3.5-5.1); SODIUM 156 mmol/L (136-145)
[2018-10-16 18:44] LABS: BLOOD UREA NITROGEN 129 mg/dL (7-18)
[2018-10-16] MEDS ORDERED: DEXTROSE 5%-WATER - 1,000 ML IV SCH (18:45)
[2018-10-16] MEDS: PROPOFOL 1,000,000 MCG/100 ML VIAL IVPB SCH (19:00)
[2018-10-16] MEDS: INSULIN REGULAR 100 UNITS in SODIUM CHLORIDE 99 ML IVPB SCH (19:45)
[2018-10-16] MEDS: CHLORHEXIDINE GLUCONATE 4% CLEANSER FOR DECOLONIZATION TP SCH (21:33)
[2018-10-16 22:43] LABS: BASO % 0.1 % (0-2.0); HEMATOCRIT 26.4 % (35.4-49); HEMOGLOBIN 8.7 GM/dL (11.7-16.9); LYMPH % 7.1 % (8-40); MCH 29.2 pg (25.7-33.7); MCHC 32.8 g/dl (32.0-35.9); MEAN CELL VOLUME 89.1 fl (80-96); MEAN PLT VOLUME 8.8 fl (7.5-11.1); MONO % 12.7 % (3.8-10.2); NEUT % 80.1 % (42.8-82.8); PLATELET COUNT 179 K/MM3 (134-434); RBC 2.96 M/mm3 (4.00-5.60); RDW 16.4 % (11.9-15.9); WHITE BLOOD COUNT 24.7 K/mm3 (4.0-10.0)
--- NOTE | 2018-10-16 23:00 | PN ---
Progress Note (short form) - Note Progress Note: -sign out to f/u serum NA -acute vs chronic -serum Na 156; corrected for hyperglycemia Na is 159 -free water deficit is 6.7 L -replace half of deficit with in 24hrs; 3.35L -calculated rate of replacement is 139 ml/hr with D5 -was started on D5 75ml/hr due to hx CHF; -monitor serum sodium q3h; decrease by 10-12meq in first 24hrs -adjust fluids for extra free water losses accordingly -monitor closely for vol status,serial clinical exams
[2018-10-16 23:02] LABS: ANION GAP 6 MMOL/L (8-16); CALCIUM 8.5 mg/dL (8.5-10.1); CHLORIDE 122 mmol/L (98-107); CO2 30 mmol/L (21-32); CREATININE 2.3 mg/dL (0.55-1.3); GLUCOSE,RANDOM 202 mg/dL (74-106); POTASSIUM 3.7 mmol/L (3.5-5.1); SODIUM 157 mmol/L (136-145)
[2018-10-16 23:36] LABS: BLOOD UREA NITROGEN 121 mg/dL (7-18)
[2018-10-16 23:56] LABS: ANISOCYTOSIS 3+
[2018-10-16 23:57] LABS: MACROCYTOSIS 3+; PLATELET ESTIMATE ADEQUATE; ROULEAU 1+
[2018-10-17] MEDS: PROPOFOL 1,000,000 MCG/100 ML VIAL IVPB SCH ×2 (01:35→13:44)
[2018-10-17] MEDS: ACETAMINOPHEN 1000 MG/100 ML VIAL (NON FORMULARY) IVPB PRN (01:36)
[2018-10-17] MEDS: INSULIN REGULAR 100 UNITS in SODIUM CHLORIDE 99 ML IVPB SCH (01:39)
[2018-10-17] MEDS ORDERED: AMPICILLIN NA/SULBACTAM NA 1.5 GM VIAL ONE ×4 (02:16→21:16)
[2018-10-17] MEDS ORDERED: SODIUM CHLORIDE 100 ML IVPB ONE ×4 (02:16→21:16)
[2018-10-17] MEDS: AMPICILLIN NA/SULBACTAM NA 1.5 GM in SODIUM CHLORIDE 100 ML IVPB SCH ×4 (02:17→21:17)
[2018-10-17] MEDS: INSULIN SLIDING SCALE (NOVOLOG) 1 VIAL SQ SCH ×7 (03:30→21:46)
[2018-10-17 04:34] LABS: ANION GAP 4 MMOL/L (8-16); CALCIUM 8.3 mg/dL (8.5-10.1); CHLORIDE 124 mmol/L (98-107); CO2 30 mmol/L (21-32); CREATININE 2.1 mg/dL (0.55-1.3); GLUCOSE,RANDOM 70 mg/dL (74-106); POTASSIUM 3.9 mmol/L (3.5-5.1); SODIUM 157 mmol/L (136-145)
[2018-10-17 04:36] LABS: BLOOD UREA NITROGEN 112 mg/dL (7-18)
[2018-10-17 05:07] LABS: SERUM IRON SATURATION 94 % (15-55); TOTAL IRON BINDING CAPACITY 317 ug/dL (250-450); UIBC 18 ug/dL (111-343)
[2018-10-17 06:22] LABS: BASO % 0.2 % (0-2.0); HEMATOCRIT 24.7 % (35.4-49); HEMOGLOBIN 8.3 GM/dL (11.7-16.9); LYMPH % 8.1 % (8-40); MCH 29.6 pg (25.7-33.7); MCHC 33.4 g/dl (32.0-35.9); MEAN CELL VOLUME 88.5 fl (80-96); MONO % 12.3 % (3.8-10.2); NEUT % 79.4 % (42.8-82.8); PLATELET COUNT 180 K/MM3 (134-434); RBC 2.79 M/mm3 (4.00-5.60); WHITE BLOOD COUNT 24.1 K/mm3 (4.0-10.0)
[2018-10-17 06:33] LABS: INR 1.28 (0.83-1.09); PROTHROMBIN TIME (PATIENT) 15.1 SEC (9.7-13.0)
[2018-10-17 06:36] LABS: ACTIVATED PTT 26.5 SECONDS (25.2-36.5)
[2018-10-17] MEDS: WATER IVPB SCH ×2 (06:58→09:26)
[2018-10-17] MEDS: PANTOPRAZOLE SODIUM IVPB SCH ×2 (06:58→09:26)
[2018-10-17] MEDS: DEXTROSE 5% IVPB SCH ×2 (06:58→09:26)
[2018-10-17 07:18] LABS: ALBUMIN 2.5 g/dl (3.4-5.0); ALK PHOS 111 U/L (45-117); ANION GAP 7 MMOL/L (8-16); BILIRUBIN,TOTAL 1.5 mg/dL (0.2-1); CALCIUM 8.5 mg/dL (8.5-10.1); CHLORIDE 123 mmol/L (98-107); CO2 29 mmol/L (21-32); CREATININE 2.2 mg/dL (0.55-1.3); GLUCOSE,RANDOM 179 mg/dL (74-106); MAGNESIUM 2.7 mg/dL (1.8-2.4); PHOSPHOROUS 3.9 mg/dL (2.5-4.9); POTASSIUM 4.1 mmol/L (3.5-5.1); SGOT/AST 21 U/L (15-37); SGPT/ALT 15 U/L (13-61); SODIUM 158 mmol/L (136-145); TOT PROT 5.3 g/dl (6.4-8.2)
--- NOTE | 2018-10-17 08:40 | PN ---
Physical Exam: SUBJECTIVE: Patient seen this morning intubated and sedated. Patient did not have any acute events overnight, remains hypernatremic. OBJECTIVE: Vital Signs Temperature 99 F 10/17/18 06:00 Pulse Rate 104 H 10/17/18 06:00 Respiratory Rate 30 H 10/17/18 06:00 Blood Pressure 132/50 L 10/17/18 06:00 O2 Sat by Pulse Oximetry (%) 97 10/17/18 01:08 GENERAL: The patient is intubated and sedated, obese HEAD: Normal with no signs of trauma. ENT: NG tube in right nostril LUNGS: Breath sounds equal, clear to auscultation bilaterally, HEART: Regular rate and rhythm, ICD inplace ABDOMEN: Soft, nontender, nondistended, normoactive bowel sounds EXTREMITIES: 2+ pulses, warm, well-perfused, no edema. SKIN: Warm, dry, normal turgor, no rashes or lesions noted CBCD WBC 24.1 K/mm3 (4.0-10.0) H 10/17/18 05:30 RBC 2.79 M/mm3 (4.00-5.60) L 10/17/18 05:30 Hgb 8.3 GM/dL (11.7-16.9) L 10/17/18 05:30 Hct 24.7 % (35.4-49) L 10/17/18 05:30 MCV 88.5 fl (80-96) 10/17/18 05:30 MCHC 33.4 g/dl (32.0-35.9) 10/17/18 05:30 RDW 16.0 % (11.9-15.9) H 10/17/18 05:30 Plt Count 180 K/MM3 (134-434) 10/17/18 05:30 MPV 9.0 fl (7.5-11.1) 10/17/18 05:30 CMP Sodium 158 mmol/L (136-145) H 10/17/18 05:30 Potassium 4.1 mmol/L (3.5-5.1) 10/17/18 05:30 Chloride 123 mmol/L (98-107) H 10/17/18 05:30 Carbon Dioxide 29 mmol/L (21-32) 10/17/18 05:30 Anion Gap 7 MMOL/L (8-16) L 10/17/18 05:30 BUN 112 mg/dL (7-18) H* 10/17/18 03:45 Creatinine 2.2 mg/dL (0.55-1.3) H 10/17/18 05:30 Creat Clearance w eGFR 28.94 (>60) 10/17/18 05:30 Calcium 8.5 mg/dL (8.5-10.1) 10/17/18 05:30 Total Bilirubin 1.5 mg/dL (0.2-1) H 10/17/18 05:30 AST 21 U/L (15-37) 10/17/18 05:30 ALT 15 U/L (13-61) 10/17/18 05:30 Alkaline Phosphatase 111 U/L (45-117) 10/17/18 05:30 Total Protein 5.3 g/dl (6.4-8.2) L 10/17/18 05:30 Albumin 2.5 g/dl (3.4-5.0) L 10/17/18 05:30 Active Medications Acetaminophen (Ofirmev Injection -) 1,000 mg IVPB Q6H PRN PRN Reason: FEVER Last Admin: 10/17/18 01:36 Dose: 1,000 mg Albuterol/Ipratropium (Duoneb -) 1 amp NEB Q4H PRN PRN Reason: SHORTNESS OF BREATH Chlorhexidine Gluconate (Hibiclens For Decolonization -) 1 applic TP HS [facility] Last Admin: 10/16/18 21:33 Dose: 1 applic Propofol (Diprivan -) 1,000,000 mcg in 100 mls @ 4.491 mls/hr IVPB TITR [facility]; Protocol Last Admin: 10/17/18 01:35 Dose: 15 mcg/kg/min, 13.472 mls/hr Ampicillin Sodium/Sulbactam (Sodium 1.5 gm/ Sodium Chloride) 100 mls @ 200 mls/ hr IVPB Q6H-IV [facility] Last Admin: 10/17/18 02:17 Dose: 200 mls/hr Dextrose (D5w -) 1,000 mls @ 75 mls/hr IV ASDIR [facility] Last Admin: 10/16/18 19:37 Dose: 75 mls/hr Pantoprazole Sodium 80 mg/ (Dextrose) 100 mls @ 10 mls/hr IVPB Q10H [facility] Last Admin: 10/17/18 06:58 Dose: 10 mls/hr Insulin Aspart (Novolog Vial Sliding Scale -) 1 vial SQ Q2H [facility]; Protocol Last Admin: 10/17/18 06:58 Dose: 2 units Midazolam HCl (Versed -) 2 mg IVPUSH Q2H PRN PRN Reason: AGITATION Last Admin: 10/15/18 16:26 Dose: 2 mg Mupirocin (Bactroban Ointment (For Decolonization) -) 1 applic NS BID [facility] Stop: 10/20/18 21:59 Last Admin: 10/16/18 21:32 Dose: 1 applic Nystatin (Mycostatin Cream -) 1 applic TP BID [facility] Last Admin: 10/16/18 21:33 Dose: 1 applic ASSESSMENT/PLAN: Patient is a 82 y/o male with a history of afib, HTN, DM, HFrEF w ICD, and AAA who is here for GI bleed. Neuro - intubated and sedated - on Versed and Propofol Cardio - hx afib, hold po meds, diltiazem IV prn for tachy - hx AAA 4.8, f/u yearly imaging - Echo 10/13 EF: 40 -45% - hold po torsemide - ICD in place Pulm - intubated with IPPV - TV 500, R 30, O2 50%, PEEP 10 - CXR; infiltrates, pneumonitis vs aspiration pneumonia - f/u CXR - Chest CT: bilateral lower lobe consolidation/atelectasis - NGT to suction GI - Upper Gi bleed vs vomiting epistaxis - received 4 units PRBC - followed by Dr. Ortiz, likely EGD today - protonix drip Neprho - BUN/Cr elevated - baseline Cr 1, hold diuresis - hypernatremic, water deficit 6.7 L - rate @ 139 for correction, due to CHF history low fluids - D5@ 100 for 1L, then D5 @ 75 - monitor Na q6h Heme - transfusion threshold 8 - received 4 units already - f/u CBC @ 3 ID - possible PNA vs Pnuemonitis - continue Unasyn day 3 - afebrile, WBC remains elevated Endo - SS - 4 units in 24 hours FEN - NPO, intubated - monitor NA closely Dispo: f/u EGD today, wean attempt after Visit type - Emergency Visit Emergency Visit: No - New Patient This patient is new to me today: Yes Date on this admission: 10/17/18 - Critical Care Critical Care patient: Yes Total Critical Care Time (in minutes): 40 Critical Care Statement: The care of this patient involved high complexity decision making to prevent further life threatening deterioration of the patient 's condition and/or to evaluate & treat vital organ system(s) failure or risk of failure.
[2018-10-17 08:44] LABS: BLOOD UREA NITROGEN 114 mg/dL (7-18)
--- NOTE | 2018-10-17 08:53 | PN ---
Teaching Attending Note Name of Resident: Anabela Maciel (') ATTENDING PHYSICIAN STATEMENT I saw and evaluated the patient. I reviewed the resident's note and discussed the case with the resident. I agree with the resident's findings and plan as documented. 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 CBC, BMP 10/17/18 05:30 10/17/18 05:30 Active Medications Acetaminophen (Ofirmev Injection -) 1,000 mg IVPB Q6H PRN PRN Reason: FEVER Last Admin: 10/17/18 01:36 Dose: 1,000 mg Albuterol/Ipratropium (Duoneb -) 1 amp NEB Q4H PRN PRN Reason: SHORTNESS OF BREATH Chlorhexidine Gluconate (Hibiclens For Decolonization -) 1 applic TP HS USHA Last Admin: 10/16/18 21:33 Dose: 1 applic Propofol (Diprivan -) 1,000,000 mcg in 100 mls @ 4.491 mls/hr IVPB TITR USHA; Protocol Last Admin: 10/17/18 01:35 Dose: 15 mcg/kg/min, 13.472 mls/hr Ampicillin Sodium/Sulbactam (Sodium 1.5 gm/ Sodium Chloride) 100 mls @ 200 mls/ hr IVPB Q6H-IV USHA Last Admin: 10/17/18 02:17 Dose: 200 mls/hr Dextrose (D5w -) 1,000 mls @ 75 mls/hr IV ASDIR USHA Last Admin: 10/16/18 19:37 Dose: 75 mls/hr Pantoprazole Sodium 80 mg/ (Dextrose) 100 mls @ 10 mls/hr IVPB Q10H USHA Last Admin: 10/17/18 06:58 Dose: 10 mls/hr Insulin Aspart (Novolog Vial Sliding Scale -) 1 vial SQ Q2H USHA; Protocol Last Admin: 10/17/18 06:58 Dose: 2 units Midazolam HCl (Versed -) 2 mg IVPUSH Q2H PRN PRN Reason: AGITATION Last Admin: 10/15/18 16:26 Dose: 2 mg Mupirocin (Bactroban Ointment (For Decolonization) -) 1 applic NS BID USHA Stop: 10/20/18 21:59 Last Admin: 10/16/18 21:32 Dose: 1 applic Nystatin (Mycostatin Cream -) 1 applic TP BID USHA Last Admin: 10/16/18 21:33 Dose: 1 applic ASSESSMENT AND PLAN:82M h/o chronic systolic HF, ICD, afib on xarelto, epistaxis p/w coffee ground emesis, alt mental status. intubated for airways protection received 3 unit PRBC evaluated by cardiology, Critical dread and GI underwent EGD shows Gastric ulcer in Fundus. Problem List - Problems (1) Upper GI bleed Assessment/Plan: Due to Gastric ulcer F/U GI recommondation cont IV PPI Daily 40 mg Protonix serial H/H Xarelto is on Hold Code(s): K92.2 - GASTROINTESTINAL HEMORRHAGE, UNSPECIFIED (2) Atrial fibrillation Assessment/Plan: Rate controlled AC is on Hold Acute Respiratory Failure Code(s): I48.91 - UNSPECIFIED ATRIAL FIBRILLATION (3) Hypernatremia Assessment/Plan: Due to dehydration and Switch to D5 and F/U BMP Code(s): E87.0 - HYPEROSMOLALITY AND HYPERNATREMIA (4) AICD (automatic cardioverter/defibrillator) present Assessment/Plan: H/O VT s/p AICD no active issue Code(s): Z95.810 - PRESENCE OF AUTOMATIC (IMPLANTABLE) CARDIAC DEFIBRILLATOR (5) RENEA (acute kidney injury) Assessment/Plan: RENEA on CKD stgae 3 F/U BMP after Hydration Code(s): N17.9 - ACUTE KIDNEY FAILURE, UNSPECIFIED (6) CKD (chronic kidney disease) stage 3, GFR 30-59 ml/min Assessment/Plan: Due to Diabetic Nephropathy F/U BMP after Hydration Code(s): N18.3 - CHRONIC KIDNEY DISEASE, STAGE 3 (MODERATE) (7) Diabetes mellitus Assessment/Plan: On correction dose insulin optimize Glycemic control. Code(s): E11.9 - TYPE 2 DIABETES MELLITUS WITHOUT COMPLICATIONS Qualifiers: Diabetes mellitus type: type 2 (8) CHF (congestive heart failure) Assessment/Plan: CHF with low EF currently on [place] saturating well Code(s): I50.9 - HEART FAILURE, UNSPECIFIED
--- NOTE | 2018-10-17 08:54 | PN ---
Progress Note, Physician Chief Complaint: seen and examined in ICU Intubated and sedated. Tele: AF,no pauses. Rare PVCs - Current Medication List Current Medications: Active Medications Acetaminophen (Ofirmev Injection -) 1,000 mg IVPB Q6H PRN PRN Reason: FEVER Last Admin: 10/17/18 01:36 Dose: 1,000 mg Albuterol/Ipratropium (Duoneb -) 1 amp NEB Q4H PRN PRN Reason: SHORTNESS OF BREATH Chlorhexidine Gluconate (Hibiclens For Decolonization -) 1 applic TP HS USHA Last Admin: 10/16/18 21:33 Dose: 1 applic Propofol (Diprivan -) 1,000,000 mcg in 100 mls @ 4.491 mls/hr IVPB TITR USHA; Protocol Last Admin: 10/17/18 01:35 Dose: 15 mcg/kg/min, 13.472 mls/hr Ampicillin Sodium/Sulbactam (Sodium 1.5 gm/ Sodium Chloride) 100 mls @ 200 mls/ hr IVPB Q6H-IV USHA Last Admin: 10/17/18 02:17 Dose: 200 mls/hr Dextrose (D5w -) 1,000 mls @ 75 mls/hr IV ASDIR USHA Last Admin: 10/16/18 19:37 Dose: 75 mls/hr Pantoprazole Sodium 80 mg/ (Dextrose) 100 mls @ 10 mls/hr IVPB Q10H USHA Last Admin: 10/17/18 06:58 Dose: 10 mls/hr Insulin Aspart (Novolog Vial Sliding Scale -) 1 vial SQ Q2H USHA; Protocol Last Admin: 10/17/18 06:58 Dose: 2 units Midazolam HCl (Versed -) 2 mg IVPUSH Q2H PRN PRN Reason: AGITATION Last Admin: 10/15/18 16:26 Dose: 2 mg Mupirocin (Bactroban Ointment (For Decolonization) -) 1 applic NS BID USHA Stop: 10/20/18 21:59 Last Admin: 10/16/18 21:32 Dose: 1 applic Nystatin (Mycostatin Cream -) 1 applic TP BID USHA Last Admin: 10/16/18 21:33 Dose: 1 applic - Objective Vital Signs: Vital Signs Temperature 99 F 10/17/18 06:00 Pulse Rate 103 H 10/17/18 08:26 Respiratory Rate 30 H 10/17/18 08:26 Blood Pressure 105/50 L 10/17/18 08:00 O2 Sat by Pulse Oximetry (%) 99 10/17/18 08:26 Constitutional: Yes: Other (+ ETT) Cardiovascular: Yes: Pulse Irregular Respiratory: Yes: Other (= breath sounds b/l. No wheezing.) Gastrointestinal: Yes: Soft Peripheral Pulses WNL: Yes Neurological: Yes: Other (sedated on vent) Labs: CBC, BMP 10/17/18 05:30 10/17/18 05:30 INR, PTT INR 1.28 (0.83-1.09) H 10/17/18 05:30 - ....Imaging Chest X-ray: Report Reviewed EKG: Image Reviewed Assessment/Plan IMP: 1. UGI Bleed 2. Acute respiratory failure 3. AF 4. Chronic systolic CHF 5. H/o VT s/p ICD 6. Ascending aortic aneurysm 7. RENEA REC: 1. Follow H/H 2. GI following. 3. Vent support 4. Hold AC in setting acute GI bleed. 5. PRN IV meds for rate control while on tele in ICU 6. Home meds held due to acute GI bleed and intermittent hypotension. Continue supportive measures, will follow.
[2018-10-17] MEDS: MUPIROCIN 2% TOPICAL OINTMENT FOR DECOLONIZATION NS SCH ×2 (09:25→21:17)
[2018-10-17] MEDS: NYSTATIN 100,000 UNIT/GM TOPICAL CREAM 15 GM TUBE TP SCH ×2 (09:25→21:18)
[2018-10-17 09:36] LABS: ANISOCYTOSIS 1+; MACROCYTOSIS 0; PLATELET ESTIMATE NORMAL
--- NOTE | 2018-10-17 11:49 | PN ---
Physical Exam: SUBJECTIVE: Patient seen and examined, intubated, sedated. OBJECTIVE: Vital Signs Period Temp Pulse Resp BP Sys/Lambert Pulse Ox Last 24 Hr 99 F-99.5 F 99-110 22-30 103-132/48-65 97-100 GENERAL: The patient is sedated, on mechanical ventilation. HEAD: Normal with no signs of trauma. EYES: PERRL, conjunctiva clear. ENT: Oropharynx clear without exudates, moist mucous membranes. NECK: Trachea midline, full range of motion, supple. LUNGS: Clear to auscultation bilaterally, no wheezes, no crackles. HEART: Irregular rate and rhythm, S1, S2 without murmur, rub or gallop. ABDOMEN: Soft, nontender, nondistended, normoactive bowel sounds. EXTREMITIES: 2+ pulses, warm, no edema. NEUROLOGICAL: sedated SKIN: Warm, dry, no rashes. Laboratory Results - last 24 hr 10/16/18 10/16/18 10/16/18 05:30 11:48 12:30 WBC 21.6 H RBC 2.94 L Hgb 8.6 L Hct 26.2 L MCV 89.0 MCH 29.1 MCHC 32.7 RDW 16.2 H Plt Count 164 MPV 8.8 Absolute Neuts (auto) Neutrophils % Neutrophils % (Manual) Band Neutrophils % Lymphocytes % Lymphocytes % (Manual) Monocytes % Monocytes % (Manual) Eosinophils % Eosinophils % (Manual) Basophils % Basophils % (Manual) Myelocytes % (Man) Promyelocytes % (Man) Blast Cells % (Manual) Nucleated RBC % Metamyelocytes Hypochromia Platelet Estimate Platelet Comment Polychromasia Poikilocytosis Anisocytosis Microcytosis Macrocytosis Rouleaux PT with INR INR PTT (Actin FS) Sodium Potassium Chloride Carbon Dioxide Anion Gap BUN Creatinine Creat Clearance w eGFR POC Glucometer 275 Random Glucose Hemoglobin A1c % Calcium Phosphorus Magnesium Iron 299 H TIBC 317 Iron Saturation 94 H Total Bilirubin AST ALT Alkaline Phosphatase Total Protein Albumin 10/16/18 10/16/18 10/16/18 16:30 18:00 21:45 WBC RBC Hgb Hct MCV MCH MCHC RDW Plt Count MPV Absolute Neuts (auto) Neutrophils % Neutrophils % (Manual) Band Neutrophils % Lymphocytes % Lymphocytes % (Manual) Monocytes % Monocytes % (Manual) Eosinophils % Eosinophils % (Manual) Basophils % Basophils % (Manual) Myelocytes % (Man) Promyelocytes % (Man) Blast Cells % (Manual) Nucleated RBC % Metamyelocytes Hypochromia Platelet Estimate Platelet Comment Polychromasia Poikilocytosis Anisocytosis Microcytosis Macrocytosis Rouleaux PT with INR INR PTT (Actin FS) Sodium 156 H Potassium 4.7 Chloride 120 H Carbon Dioxide 29 Anion Gap 7 L BUN 129 H* Creatinine 2.3 H Creat Clearance w eGFR 27.50 POC Glucometer 252 199 Random Glucose 290 H Hemoglobin A1c % Calcium 8.2 L Phosphorus Magnesium Iron TIBC Iron Saturation Total Bilirubin AST ALT Alkaline Phosphatase Total Protein Albumin 10/16/18 10/16/18 10/17/18 22:25 22:25 01:20 WBC 24.7 H RBC 2.96 L Hgb 8.7 L Hct 26.4 L MCV 89.1 MCH 29.2 MCHC 32.8 RDW 16.4 H Plt Count 179 MPV 8.8 Absolute Neuts (auto) 19.8 H Neutrophils % 80.1 Neutrophils % (Manual) 75.0 Band Neutrophils % 5.0 Lymphocytes % 7.1 L Lymphocytes % (Manual) 7.0 L Monocytes % 12.7 H Monocytes % (Manual) 13 H Eosinophils % 0.0 Eosinophils % (Manual) Basophils % 0.1 Basophils % (Manual) Myelocytes % (Man) Promyelocytes % (Man) Blast Cells % (Manual) Nucleated RBC % 1 H Metamyelocytes Hypochromia 2+ Platelet Estimate Adequate Platelet Comment No clumping noted Polychromasia Poikilocytosis Anisocytosis 3+ Microcytosis Macrocytosis 3+ Rouleaux 1+ PT with INR INR PTT (Actin FS) Sodium 157 H Potassium 3.7 Chloride 122 H Carbon Dioxide 30 Anion Gap 6 L BUN 121 H* Creatinine 2.3 H Creat Clearance w eGFR 27.50 POC Glucometer 112 Random Glucose 202 H Hemoglobin A1c % Calcium 8.5 Phosphorus Magnesium Iron TIBC Iron Saturation Total Bilirubin AST ALT Alkaline Phosphatase Total Protein Albumin 10/17/18 10/17/18 10/17/18 03:10 03:38 03:45 WBC RBC Hgb Hct MCV MCH MCHC RDW Plt Count MPV Absolute Neuts (auto) Neutrophils % Neutrophils % (Manual) Band Neutrophils % Lymphocytes % Lymphocytes % (Manual) Monocytes % Monocytes % (Manual) Eosinophils % Eosinophils % (Manual) Basophils % Basophils % (Manual) Myelocytes % (Man) Promyelocytes % (Man) Blast Cells % (Manual) Nucleated RBC % Metamyelocytes Hypochromia Platelet Estimate Platelet Comment Polychromasia Poikilocytosis Anisocytosis Microcytosis Macrocytosis Rouleaux PT with INR INR PTT (Actin FS) Sodium 157 H Potassium 3.9 Chloride 124 H Carbon Dioxide 30 Anion Gap 4 L BUN 112 H* Creatinine 2.1 H Creat Clearance w eGFR 30.54 POC Glucometer 65 69 Random Glucose 70 L Hemoglobin A1c % Calcium 8.3 L Phosphorus Magnesium Iron TIBC Iron Saturation Total Bilirubin AST ALT Alkaline Phosphatase Total Protein Albumin 10/17/18 10/17/18 10/17/18 05:30 05:30 05:30 WBC 24.1 H RBC 2.79 L Hgb 8.3 L Hct 24.7 L MCV 88.5 MCH 29.6 MCHC 33.4 RDW 16.0 H Plt Count 180 MPV 9.0 Absolute Neuts (auto) 19.1 H Neutrophils % 79.4 Neutrophils % (Manual) 88.0 H Band Neutrophils % 0.0 Lymphocytes % 8.1 Lymphocytes % (Manual) 5.0 L D Monocytes % 12.3 H Monocytes % (Manual) 6 Eosinophils % 0.0 Eosinophils % (Manual) 0.0 Basophils % 0.2 Basophils % (Manual) 0.0 Myelocytes % (Man) 0 Promyelocytes % (Man) 0 Blast Cells % (Manual) 0 Nucleated RBC % 0 Metamyelocytes 1 D Hypochromia 0 Platelet Estimate Normal Platelet Comment Polychromasia 1+ Poikilocytosis 1+ Anisocytosis 1+ Microcytosis 1+ Macrocytosis 0 Rouleaux PT with INR 15.10 H INR 1.28 H PTT (Actin FS) 26.5 Sodium 158 H Potassium 4.1 Chloride 123 H Carbon Dioxide 29 Anion Gap 7 L BUN 114 H* Creatinine 2.2 H Creat Clearance w eGFR 28.94 POC Glucometer Random Glucose 179 H Hemoglobin A1c % Calcium 8.5 Phosphorus 3.9 Magnesium 2.7 H Iron TIBC Iron Saturation Total Bilirubin 1.5 H AST 21 ALT 15 Alkaline Phosphatase 111 Total Protein 5.3 L Albumin 2.5 L 10/17/18 10/17/18 10/17/18 05:30 05:47 06:55 WBC RBC Hgb Hct MCV MCH MCHC RDW Plt Count MPV Absolute Neuts (auto) Neutrophils % Neutrophils % (Manual) Band Neutrophils % Lymphocytes % Lymphocytes % (Manual) Monocytes % Monocytes % (Manual) Eosinophils % Eosinophils % (Manual) Basophils % Basophils % (Manual) Myelocytes % (Man) Promyelocytes % (Man) Blast Cells % (Manual) Nucleated RBC % Metamyelocytes Hypochromia Platelet Estimate Platelet Comment Polychromasia Poikilocytosis Anisocytosis Microcytosis Macrocytosis Rouleaux PT with INR INR PTT (Actin FS) Sodium Potassium Chloride Carbon Dioxide Anion Gap BUN Creatinine Creat Clearance w eGFR POC Glucometer 164 189 Random Glucose Hemoglobin A1c % 6.4 H Calcium Phosphorus Magnesium Iron TIBC Iron Saturation Total Bilirubin AST ALT Alkaline Phosphatase Total Protein Albumin 10/17/18 10:25 WBC RBC Hgb Hct MCV MCH MCHC RDW Plt Count MPV Absolute Neuts (auto) Neutrophils % Neutrophils % (Manual) Band Neutrophils % Lymphocytes % Lymphocytes % (Manual) Monocytes % Monocytes % (Manual) Eosinophils % Eosinophils % (Manual) Basophils % Basophils % (Manual) Myelocytes % (Man) Promyelocytes % (Man) Blast Cells % (Manual) Nucleated RBC % Metamyelocytes Hypochromia Platelet Estimate Platelet Comment Polychromasia Poikilocytosis Anisocytosis Microcytosis Macrocytosis Rouleaux PT with INR INR PTT (Actin FS) Sodium Potassium Chloride Carbon Dioxide Anion Gap BUN Creatinine Creat Clearance w eGFR POC Glucometer 219 Random Glucose Hemoglobin A1c % Calcium Phosphorus Magnesium Iron TIBC Iron Saturation Total Bilirubin AST ALT Alkaline Phosphatase Total Protein Albumin Active Medications Generic Name Dose Route Start Last Admin Trade Name Freq PRN Reason Stop Dose Admin Acetaminophen 1,000 mg 10/16/18 23:47 10/17/18 01:36 Ofirmev Injection - IVPB 1,000 mg Q6H PRN Administration FEVER Albuterol/Ipratropium 1 amp 10/16/18 07:05 Duoneb - NEB Q4H PRN SHORTNESS OF BREATH Chlorhexidine Gluconate 1 applic 10/15/18 22:00 10/16/18 21:33 Hibiclens For Decolonization - TP 1 applic HS USHA Administration Propofol 1,000,000 mcg in 100 mls @ 4.491 mls/hr 10/15/18 12:00 10/17/18 01: 35 Diprivan - IVPB 15 mcg/kg/min TITR USHA 13.472 mls/hr Administration Protocol 5 MCG/KG/MIN Ampicillin Sodium/Sulbactam 100 mls @ 200 mls/hr 10/15/18 22:15 10/17/18 09: 21 Sodium 1.5 gm/ Sodium Chloride IVPB 200 mls/hr Q6H-IV USHA Administration Dextrose/Lactated Ringer's 1,000 mls @ 100 mls/hr 10/17/18 11:30 D5-Lr - IV 10/17/18 21:29 ASDIR USHA Dextrose/Lactated Ringer's 1,000 mls @ 75 mls/hr 10/17/18 21:29 D5-Lr - IV ASDIR USHA Insulin Aspart 1 vial 10/17/18 03:30 10/17/18 10:28 Novolog Vial Sliding Scale - SQ 4 units Q2H USHA Administration Protocol Midazolam HCl 2 mg 10/15/18 14:09 10/15/18 16:26 Versed - IVPUSH 2 mg Q2H PRN Administration AGITATION Mupirocin 1 applic 10/15/18 22:00 10/17/18 09:25 Bactroban Ointment (For Decolonization) - NS 10/20/18 21:59 1 applic BID USHA Administration Nystatin 1 applic 10/15/18 22:00 10/17/18 09:25 Mycostatin Cream - TP 1 applic BID USHA Administration Pantoprazole Sodium 40 mg 10/18/18 10:00 Protonix - PO DAILY USHA ASSESSMENT/PLAN: The patient is 82 year old male patient with hx of atrial fibrillation, HTN, DM , DL, HFrEF s/p single lead ICD (medtronic) presented AMS after his son found him vomiting blood, and intubated in ED, admitted to ICU for futher management. Upper GI bleed: -no history of GI bleeding, coffee ground emesis -intubated and started PPI drip -GI was consulted -monitored H/H, transfused -upper endoscopy done today positive 3mm clean based ulcer in proximal antrum and 8mm submucosal nodule in antrum -will monitor for bleeding -PPI changed to Protonix 40 mg qd Acute respiratory failure: -intubated on AC -CT chest: bilateral lower lobe consolidation/atelectasis, CXR reviewed -will follow up Pulm recommendations -cont Duoneb q4h PRN Atrial Fibrillation: - holding xarelto due to bleeding - cont diltiazem IV PRN for tachycardia -cardiac monitoring Chronic systolic HF -last ECHO 09/2017, with EF 40-45% -strict I&O -continue to monitor volume status, hold diuretics Hypernatremia: -158 today, will cont D5LR -monitor Ascending aorta aneurism: - 4.[address], arch 4.2 cm, no dissection HLD -hold statins DM -ISS ACHS -BGM ACHS -HgA1c 6.4% F/E/N: LR/Na 158/NPO Disposition: ICU monitoring - Problem List - Problems (1) Abnormal liver function tests Code(s): R94.5 - ABNORMAL RESULTS OF LIVER FUNCTION STUDIES (2) Diabetic neuropathy Code(s): E11.40 - TYPE 2 DIABETES MELLITUS WITH DIABETIC NEUROPATHY, UNSP (3) Hypothyroidism Code(s): E03.9 - HYPOTHYROIDISM, UNSPECIFIED (4) Morbid exogenous obesity Code(s): E66.01 - MORBID (SEVERE) OBESITY DUE TO EXCESS CALORIES (5) Renal insufficiency Code(s): N28.9 - DISORDER OF KIDNEY AND URETER, UNSPECIFIED (6) Sleep apnea Code(s): G47.30 - SLEEP APNEA, UNSPECIFIED (7) Upper GI bleed Code(s): K92.2 - GASTROINTESTINAL HEMORRHAGE, UNSPECIFIED (8) Syncope Code(s): R55 - SYNCOPE AND COLLAPSE (9) Volume overload Code(s): E87.70 - FLUID OVERLOAD, UNSPECIFIED (10) Atrial fibrillation Code(s): I48.91 - UNSPECIFIED ATRIAL FIBRILLATION (11) CHF (congestive heart failure) Code(s): I50.9 - HEART FAILURE, UNSPECIFIED (12) Diabetes mellitus Code(s): E11.9 - TYPE 2 DIABETES MELLITUS WITHOUT COMPLICATIONS (13) Thoracic aortic aneurysm Code(s): I71.2 - THORACIC AORTIC ANEURYSM, WITHOUT RUPTURE (14) Venous stasis Code(s): I87.8 - OTHER SPECIFIED DISORDERS OF VEINS Visit type - Emergency Visit Emergency Visit: Yes ED Registration Date: 10/15/18 Care time: The patient presented to the Emergency Department on the above date and was hospitalized for further evaluation of their emergent condition. - New Patient This patient is new to me today: Yes Date on this admission: 10/17/18 - Critical Care Critical Care patient: Yes Total Critical Care Time (in minutes): 40 Critical Care Statement: The care of this patient involved high complexity decision making to prevent further life threatening deterioration of the patient 's condition and/or to evaluate & treat vital organ system(s) failure or risk of failure. - Discharge Referral Referred to [facility] No
[2018-10-17] MEDS: DEXTROSE 5%-LACTATED RINGERS 1,000 ML IV SCH ×2 (11:56→13:44)
--- NOTE | 2018-10-17 12:31 | PN ---
Teaching Attending Note Name of Resident: Kamini Cooper ATTENDING PHYSICIAN STATEMENT I saw and evaluated the patient. I reviewed the resident's note and discussed the case with the resident. I agree with the resident's findings and plan as documented. SUBJECTIVE: Patient seen and examined in the ICU. Intubated and sedated on AC Mode of vent. No pressors. No occult bleeding. Intake & Output 10/14/18 10/15/18 10/16/18 10/17/18 23:59 23:59 23:59 23:59 Intake Total 450 1484 1410.8 Output Total 2950 2855 1800 Balance -2500 -1371 -389.2 Weight 304 lb 3.806 oz 307 lb 8.717 oz 308 lb Last Vital Signs Temp Pulse Resp BP Pulse Ox 99 F 103 H 30 H 105/50 L 100 10/17/18 06:00 10/17/18 08:26 10/17/18 11:10 10/17/18 08:00 10/17/18 09:00 Active Medications Acetaminophen (Ofirmev Injection -) 1,000 mg IVPB Q6H PRN PRN Reason: FEVER Last Admin: 10/17/18 01:36 Dose: 1,000 mg Albuterol/Ipratropium (Duoneb -) 1 amp NEB Q4H PRN PRN Reason: SHORTNESS OF BREATH Chlorhexidine Gluconate (Hibiclens For Decolonization -) 1 applic TP HS USHA Last Admin: 10/16/18 21:33 Dose: 1 applic Propofol (Diprivan -) 1,000,000 mcg in 100 mls @ 4.491 mls/hr IVPB TITR USHA; Protocol Last Admin: 10/17/18 01:35 Dose: 15 mcg/kg/min, 13.472 mls/hr Ampicillin Sodium/Sulbactam (Sodium 1.5 gm/ Sodium Chloride) 100 mls @ 200 mls/ hr IVPB Q6H-IV USHA Last Admin: 10/17/18 09:21 Dose: 200 mls/hr Dextrose/Lactated Ringer's (D5-Lr -) 1,000 mls @ 100 mls/hr IV ASDIR USHA Stop: 10/17/18 21:29 Last Admin: 10/17/18 11:56 Dose: 100 mls/hr Dextrose/Lactated Ringer's (D5-Lr -) 1,000 mls @ 75 mls/hr IV ASDIR USHA Insulin Aspart (Novolog Vial Sliding Scale -) 1 vial SQ Q4HPO USHA; Protocol Midazolam HCl (Versed -) 2 mg IVPUSH Q2H PRN PRN Reason: AGITATION Last Admin: 10/15/18 16:26 Dose: 2 mg Mupirocin (Bactroban Ointment (For Decolonization) -) 1 applic NS BID USHA Stop: 10/20/18 21:59 Last Admin: 10/17/18 09:25 Dose: 1 applic Nystatin (Mycostatin Cream -) 1 applic TP BID USHA Last Admin: 10/17/18 09:25 Dose: 1 applic Pantoprazole Sodium (Protonix -) 40 mg PO DAILY [facility] Laboratory Results - last 24 hr 10/16/18 10/16/18 10/16/18 05:30 12:30 16:30 WBC 21.6 H RBC 2.94 L Hgb 8.6 L Hct 26.2 L MCV 89.0 MCH 29.1 MCHC 32.7 RDW 16.2 H Plt Count 164 MPV 8.8 Absolute Neuts (auto) Neutrophils % Neutrophils % (Manual) Band Neutrophils % Lymphocytes % Lymphocytes % (Manual) Monocytes % Monocytes % (Manual) Eosinophils % Eosinophils % (Manual) Basophils % Basophils % (Manual) Myelocytes % (Man) Promyelocytes % (Man) Blast Cells % (Manual) Nucleated RBC % Metamyelocytes Hypochromia Platelet Estimate Platelet Comment Polychromasia Poikilocytosis Anisocytosis Microcytosis Macrocytosis Rouleaux PT with INR INR PTT (Actin FS) Sodium Potassium Chloride Carbon Dioxide Anion Gap BUN Creatinine Creat Clearance w eGFR POC Glucometer 252 Random Glucose Hemoglobin A1c % Calcium Phosphorus Magnesium Iron 299 H TIBC 317 Iron Saturation 94 H Total Bilirubin AST ALT Alkaline Phosphatase Total Protein Albumin 10/16/18 10/16/18 10/16/18 18:00 21:45 22:25 WBC 24.7 H RBC 2.96 L Hgb 8.7 L Hct 26.4 L MCV 89.1 MCH 29.2 MCHC 32.8 RDW 16.4 H Plt Count 179 MPV 8.8 Absolute Neuts (auto) 19.8 H Neutrophils % 80.1 Neutrophils % (Manual) 75.0 Band Neutrophils % 5.0 Lymphocytes % 7.1 L Lymphocytes % (Manual) 7.0 L Monocytes % 12.7 H Monocytes % (Manual) 13 H Eosinophils % 0.0 Eosinophils % (Manual) Basophils % 0.1 Basophils % (Manual) Myelocytes % (Man) Promyelocytes % (Man) Blast Cells % (Manual) Nucleated RBC % 1 H Metamyelocytes Hypochromia 2+ Platelet Estimate Adequate Platelet Comment No clumping noted Polychromasia Poikilocytosis Anisocytosis 3+ Microcytosis Macrocytosis 3+ Rouleaux 1+ PT with INR INR PTT (Actin FS) Sodium 156 H Potassium 4.7 Chloride 120 H Carbon Dioxide 29 Anion Gap 7 L BUN 129 H* Creatinine 2.3 H Creat Clearance w eGFR 27.50 POC Glucometer 199 Random Glucose 290 H Hemoglobin A1c % Calcium 8.2 L Phosphorus Magnesium Iron TIBC Iron Saturation Total Bilirubin AST ALT Alkaline Phosphatase Total Protein Albumin 10/16/18 10/17/18 10/17/18 22:25 01:20 03:10 WBC RBC Hgb Hct MCV MCH MCHC RDW Plt Count MPV Absolute Neuts (auto) Neutrophils % Neutrophils % (Manual) Band Neutrophils % Lymphocytes % Lymphocytes % (Manual) Monocytes % Monocytes % (Manual) Eosinophils % Eosinophils % (Manual) Basophils % Basophils % (Manual) Myelocytes % (Man) Promyelocytes % (Man) Blast Cells % (Manual) Nucleated RBC % Metamyelocytes Hypochromia Platelet Estimate Platelet Comment Polychromasia Poikilocytosis Anisocytosis Microcytosis Macrocytosis Rouleaux PT with INR INR PTT (Actin FS) Sodium 157 H Potassium 3.7 Chloride 122 H Carbon Dioxide 30 Anion Gap 6 L BUN 121 H* Creatinine 2.3 H Creat Clearance w eGFR 27.50 POC Glucometer 112 65 Random Glucose 202 H Hemoglobin A1c % Calcium 8.5 Phosphorus Magnesium Iron TIBC Iron Saturation Total Bilirubin AST ALT Alkaline Phosphatase Total Protein Albumin 10/17/18 10/17/18 10/17/18 03:38 03:45 05:30 WBC 24.1 H RBC 2.79 L Hgb 8.3 L Hct 24.7 L MCV 88.5 MCH 29.6 MCHC 33.4 RDW 16.0 H Plt Count 180 MPV 9.0 Absolute Neuts (auto) 19.1 H Neutrophils % 79.4 Neutrophils % (Manual) 88.0 H Band Neutrophils % 0.0 Lymphocytes % 8.1 Lymphocytes % (Manual) 5.0 L D Monocytes % 12.3 H Monocytes % (Manual) 6 Eosinophils % 0.0 Eosinophils % (Manual) 0.0 Basophils % 0.2 Basophils % (Manual) 0.0 Myelocytes % (Man) 0 Promyelocytes % (Man) 0 Blast Cells % (Manual) 0 Nucleated RBC % 0 Metamyelocytes 1 D Hypochromia 0 Platelet Estimate Normal Platelet Comment Polychromasia 1+ Poikilocytosis 1+ Anisocytosis 1+ Microcytosis 1+ Macrocytosis 0 Rouleaux PT with INR INR PTT (Actin FS) Sodium 157 H Potassium 3.9 Chloride 124 H Carbon Dioxide 30 Anion Gap 4 L BUN 112 H* Creatinine 2.1 H Creat Clearance w eGFR 30.54 POC Glucometer 69 Random Glucose 70 L Hemoglobin A1c % Calcium 8.3 L Phosphorus Magnesium Iron TIBC Iron Saturation Total Bilirubin AST ALT Alkaline Phosphatase Total Protein Albumin 10/17/18 10/17/18 10/17/18 05:30 05:30 05:30 WBC RBC Hgb Hct MCV MCH MCHC RDW Plt Count MPV Absolute Neuts (auto) Neutrophils % Neutrophils % (Manual) Band Neutrophils % Lymphocytes % Lymphocytes % (Manual) Monocytes % Monocytes % (Manual) Eosinophils % Eosinophils % (Manual) Basophils % Basophils % (Manual) Myelocytes % (Man) Promyelocytes % (Man) Blast Cells % (Manual) Nucleated RBC % Metamyelocytes Hypochromia Platelet Estimate Platelet Comment Polychromasia Poikilocytosis Anisocytosis Microcytosis Macrocytosis Rouleaux PT with INR 15.10 H INR 1.28 H PTT (Actin FS) 26.5 Sodium 158 H Potassium 4.1 Chloride 123 H Carbon Dioxide 29 Anion Gap 7 L BUN 114 H* Creatinine 2.2 H Creat Clearance w eGFR 28.94 POC Glucometer Random Glucose 179 H Hemoglobin A1c % 6.4 H Calcium 8.5 Phosphorus 3.9 Magnesium 2.7 H Iron TIBC Iron Saturation Total Bilirubin 1.5 H AST 21 ALT 15 Alkaline Phosphatase 111 Total Protein 5.3 L Albumin 2.5 L 10/17/18 10/17/18 10/17/18 05:47 06:55 10:25 WBC RBC Hgb Hct MCV MCH MCHC RDW Plt Count MPV Absolute Neuts (auto) Neutrophils % Neutrophils % (Manual) Band Neutrophils % Lymphocytes % Lymphocytes % (Manual) Monocytes % Monocytes % (Manual) Eosinophils % Eosinophils % (Manual) Basophils % Basophils % (Manual) Myelocytes % (Man) Promyelocytes % (Man) Blast Cells % (Manual) Nucleated RBC % Metamyelocytes Hypochromia Platelet Estimate Platelet Comment Polychromasia Poikilocytosis Anisocytosis Microcytosis Macrocytosis Rouleaux PT with INR INR PTT (Actin FS) Sodium Potassium Chloride Carbon Dioxide Anion Gap BUN Creatinine Creat Clearance w eGFR POC Glucometer 164 189 219 Random Glucose Hemoglobin A1c % Calcium Phosphorus Magnesium Iron TIBC Iron Saturation Total Bilirubin AST ALT Alkaline Phosphatase Total Protein Albumin Gen; Intubated sedated HEENT: orally intubated PULM: diminished bases, no wheezes CV: tachy, irreg ABD: soft, +BS EXT: venous stasis, pitting and weeping LE edema NEURO: sedated Laboratory Results - last 24 hr 10/16/18 10/16/18 10/16/18 05:30 12:30 16:30 WBC 21.6 H RBC 2.94 L Hgb 8.6 L Hct 26.2 L MCV 89.0 MCH 29.1 MCHC 32.7 RDW 16.2 H Plt Count 164 MPV 8.8 Absolute Neuts (auto) Neutrophils % Neutrophils % (Manual) Band Neutrophils % Lymphocytes % Lymphocytes % (Manual) Monocytes % Monocytes % (Manual) Eosinophils % Eosinophils % (Manual) Basophils % Basophils % (Manual) Myelocytes % (Man) Promyelocytes % (Man) Blast Cells % (Manual) Nucleated RBC % Metamyelocytes Hypochromia Platelet Estimate Platelet Comment Polychromasia Poikilocytosis Anisocytosis Microcytosis Macrocytosis Rouleaux PT with INR INR PTT (Actin FS) Sodium Potassium Chloride Carbon Dioxide Anion Gap BUN Creatinine Creat Clearance w eGFR POC Glucometer 252 Random Glucose Hemoglobin A1c % Calcium Phosphorus Magnesium Iron 299 H TIBC 317 Iron Saturation 94 H Total Bilirubin AST ALT Alkaline Phosphatase Total Protein Albumin 10/16/18 10/16/18 10/16/18 18:00 21:45 22:25 WBC 24.7 H RBC 2.96 L Hgb 8.7 L Hct 26.4 L MCV 89.1 MCH 29.2 MCHC 32.8 RDW 16.4 H Plt Count 179 MPV 8.8 Absolute Neuts (auto) 19.8 H Neutrophils % 80.1 Neutrophils % (Manual) 75.0 Band Neutrophils % 5.0 Lymphocytes % 7.1 L Lymphocytes % (Manual) 7.0 L Monocytes % 12.7 H Monocytes % (Manual) 13 H Eosinophils % 0.0 Eosinophils % (Manual) Basophils % 0.1 Basophils % (Manual) Myelocytes % (Man) Promyelocytes % (Man) Blast Cells % (Manual) Nucleated RBC % 1 H Metamyelocytes Hypochromia 2+ Platelet Estimate Adequate Platelet Comment No clumping noted Polychromasia Poikilocytosis Anisocytosis 3+ Microcytosis Macrocytosis 3+ Rouleaux 1+ PT with INR INR PTT (Actin FS) Sodium 156 H Potassium 4.7 Chloride 120 H Carbon Dioxide 29 Anion Gap 7 L BUN 129 H* Creatinine 2.3 H Creat Clearance w eGFR 27.50 POC Glucometer 199 Random Glucose 290 H Hemoglobin A1c % Calcium 8.2 L Phosphorus Magnesium Iron TIBC Iron Saturation Total Bilirubin AST ALT Alkaline Phosphatase Total Protein Albumin 10/16/18 10/17/18 10/17/18 22:25 01:20 03:10 WBC RBC Hgb Hct MCV MCH MCHC RDW Plt Count MPV Absolute Neuts (auto) Neutrophils % Neutrophils % (Manual) Band Neutrophils % Lymphocytes % Lymphocytes % (Manual) Monocytes % Monocytes % (Manual) Eosinophils % Eosinophils % (Manual) Basophils % Basophils % (Manual) Myelocytes % (Man) Promyelocytes % (Man) Blast Cells % (Manual) Nucleated RBC % Metamyelocytes Hypochromia Platelet Estimate Platelet Comment Polychromasia Poikilocytosis Anisocytosis Microcytosis Macrocytosis Rouleaux PT with INR INR PTT (Actin FS) Sodium 157 H Potassium 3.7 Chloride 122 H Carbon Dioxide 30 Anion Gap 6 L BUN 121 H* Creatinine 2.3 H Creat Clearance w eGFR 27.50 POC Glucometer 112 65 Random Glucose 202 H Hemoglobin A1c % Calcium 8.5 Phosphorus Magnesium Iron TIBC Iron Saturation Total Bilirubin AST ALT Alkaline Phosphatase Total Protein Albumin 10/17/18 10/17/18 10/17/18 03:38 03:45 05:30 WBC 24.1 H RBC 2.79 L Hgb 8.3 L Hct 24.7 L MCV 88.5 MCH 29.6 MCHC 33.4 RDW 16.0 H Plt Count 180 MPV 9.0 Absolute Neuts (auto) 19.1 H Neutrophils % 79.4 Neutrophils % (Manual) 88.0 H Band Neutrophils % 0.0 Lymphocytes % 8.1 Lymphocytes % (Manual) 5.0 L D Monocytes % 12.3 H Monocytes % (Manual) 6 Eosinophils % 0.0 Eosinophils % (Manual) 0.0 Basophils % 0.2 Basophils % (Manual) 0.0 Myelocytes % (Man) 0 Promyelocytes % (Man) 0 Blast Cells % (Manual) 0 Nucleated RBC % 0 Metamyelocytes 1 D Hypochromia 0 Platelet Estimate Normal Platelet Comment Polychromasia 1+ Poikilocytosis 1+ Anisocytosis 1+ Microcytosis 1+ Macrocytosis 0 Rouleaux PT with INR INR PTT (Actin FS) Sodium 157 H Potassium 3.9 Chloride 124 H Carbon Dioxide 30 Anion Gap 4 L BUN 112 H* Creatinine 2.1 H Creat Clearance w eGFR 30.54 POC Glucometer 69 Random Glucose 70 L Hemoglobin A1c % Calcium 8.3 L Phosphorus Magnesium Iron TIBC Iron Saturation Total Bilirubin AST ALT Alkaline Phosphatase Total Protein Albumin 10/17/18 10/17/18 10/17/18 05:30 05:30 05:30 WBC RBC Hgb Hct MCV MCH MCHC RDW Plt Count MPV Absolute Neuts (auto) Neutrophils % Neutrophils % (Manual) Band Neutrophils % Lymphocytes % Lymphocytes % (Manual) Monocytes % Monocytes % (Manual) Eosinophils % Eosinophils % (Manual) Basophils % Basophils % (Manual) Myelocytes % (Man) Promyelocytes % (Man) Blast Cells % (Manual) Nucleated RBC % Metamyelocytes Hypochromia Platelet Estimate Platelet Comment Polychromasia Poikilocytosis Anisocytosis Microcytosis Macrocytosis Rouleaux PT with INR 15.10 H INR 1.28 H PTT (Actin FS) 26.5 Sodium 158 H Potassium 4.1 Chloride 123 H Carbon Dioxide 29 Anion Gap 7 L BUN 114 H* Creatinine 2.2 H Creat Clearance w eGFR 28.94 POC Glucometer Random Glucose 179 H Hemoglobin A1c % 6.4 H Calcium 8.5 Phosphorus 3.9 Magnesium 2.7 H Iron TIBC Iron Saturation Total Bilirubin 1.5 H AST 21 ALT 15 Alkaline Phosphatase 111 Total Protein 5.3 L Albumin 2.5 L 10/17/18 10/17/18 10/17/18 05:47 06:55 10:25 WBC RBC Hgb Hct MCV MCH MCHC RDW Plt Count MPV Absolute Neuts (auto) Neutrophils % Neutrophils % (Manual) Band Neutrophils % Lymphocytes % Lymphocytes % (Manual) Monocytes % Monocytes % (Manual) Eosinophils % Eosinophils % (Manual) Basophils % Basophils % (Manual) Myelocytes % (Man) Promyelocytes % (Man) Blast Cells % (Manual) Nucleated RBC % Metamyelocytes Hypochromia Platelet Estimate Platelet Comment Polychromasia Poikilocytosis Anisocytosis Microcytosis Macrocytosis Rouleaux PT with INR INR PTT (Actin FS) Sodium Potassium Chloride Carbon Dioxide Anion Gap BUN Creatinine Creat Clearance w eGFR POC Glucometer 164 189 219 Random Glucose Hemoglobin A1c % Calcium Phosphorus Magnesium Iron TIBC Iron Saturation Total Bilirubin AST ALT Alkaline Phosphatase Total Protein Albumin IMP: Acute Respiratory Failure UGIB CHF PPM/AICD RENEA AAA Acute blood loss anemia HTN DM CH AICD/PPM Atrial fibrillation on eliquis (?) Aspiration Pneumonitis For endoscopic evaluation Follow CBC Normal transfusion threshold: Hgb 8 SCDs IVF NGT to suction Hold diuresis ABX coverage Wean attempts after endoscopy Dr Saini Critical care time spent in reviewing chart, evaluating patient and formulating plan - 36 minutes
--- NOTE | 2018-10-17 13:10 | PN ---
Progress Note (short form) - Note Progress Note: Brief endoscopy note, please see paper report in chart for details Esophagus with linear erythema likely NGT trauma Stomach nodular. Tiny 3mm clean based ulcer in proximal antrum. 8mm submucosal nodule in antrum that was well biopsied. Biopsies taken for H. pylori. Small clot in fundus unroofed and without underlying lesion. Normal duodenum Recommend await biopsy results, transition to once daily PPI, advance diet as tolerated
[2018-10-17 14:12] LABS: HBSAG SCREEN Negative (Negative); HEP B CORE AB, TOT Negative (Negative)
[2018-10-17 15:41] LABS: HEMATOCRIT 23.3 % (35.4-49); HEMOGLOBIN 7.6 GM/dL (11.7-16.9); MCH 29.1 pg (25.7-33.7); MCHC 32.7 g/dl (32.0-35.9); MEAN CELL VOLUME 89.1 fl (80-96); MEAN PLT VOLUME 8.9 fl (7.5-11.1); PLATELET COUNT 148 K/MM3 (134-434); RBC 2.61 M/mm3 (4.00-5.60); RDW 16.4 % (11.9-15.9); WHITE BLOOD COUNT 18.2 K/mm3 (4.0-10.0)
[2018-10-17 16:14] LABS: ANION GAP 7 MMOL/L (8-16); BLOOD UREA NITROGEN 104 mg/dL (7-18); CALCIUM 8.4 mg/dL (8.5-10.1); CHLORIDE 122 mmol/L (98-107); CO2 29 mmol/L (21-32); CREATININE 2.2 mg/dL (0.55-1.3); GLUCOSE,RANDOM 242 mg/dL (74-106); POTASSIUM 3.8 mmol/L (3.5-5.1); SODIUM 157 mmol/L (136-145)
[2018-10-17] MEDS: PANTOPRAZOLE SODIUM 80 MG in SODIUM CHLORIDE 100 ML IVPB SCH (18:05)
[2018-10-17] MEDS: CHLORHEXIDINE GLUCONATE 4% CLEANSER FOR DECOLONIZATION TP SCH (21:17)
[2018-10-17] MEDS ORDERED: DEXTROSE 5%-LACTATED RINGERS 1,000 ML IV SCH (21:29)
[2018-10-18] MEDS: PROPOFOL 1,000,000 MCG/100 ML VIAL IVPB SCH ×2 (01:29→12:44)
[2018-10-18] MEDS ORDERED: SODIUM CHLORIDE 100 ML IVPB ONE ×4 (03:26→21:08)
[2018-10-18] MEDS ORDERED: AMPICILLIN NA/SULBACTAM NA 1.5 GM VIAL ONE ×4 (03:26→21:07)
[2018-10-18] MEDS: AMPICILLIN NA/SULBACTAM NA 1.5 GM in SODIUM CHLORIDE 100 ML IVPB SCH ×4 (03:29→21:10)
[2018-10-18] MEDS: INSULIN SLIDING SCALE (NOVOLOG) 1 VIAL SQ SCH ×6 (03:32→21:16)
[2018-10-18 06:52] LABS: BASO % 0.1 % (0-2.0); EOS % 0.1 % (0-4.5); HEMATOCRIT 21.7 % (35.4-49); HEMOGLOBIN 7.2 GM/dL (11.7-16.9); LYMPH % 11.7 % (8-40); MCH 29.6 pg (25.7-33.7); MEAN CELL VOLUME 89.7 fl (80-96); MEAN PLT VOLUME 9.4 fl (7.5-11.1); MONO % 10.8 % (3.8-10.2); NEUT % 77.3 % (42.8-82.8); PLATELET COUNT 143 K/MM3 (134-434); RBC 2.42 M/mm3 (4.00-5.60); RDW 16.4 % (11.9-15.9); WHITE BLOOD COUNT 15.9 K/mm3 (4.0-10.0)
[2018-10-18 07:40] LABS: ALBUMIN 2.3 g/dl (3.4-5.0); ALK PHOS 101 U/L (45-117); ANION GAP 7 MMOL/L (8-16); BILIRUBIN,TOTAL 1.2 mg/dL (0.2-1); CALCIUM 8.2 mg/dL (8.5-10.1); CHLORIDE 123 mmol/L (98-107); CO2 30 mmol/L (21-32); CREATININE 2.2 mg/dL (0.55-1.3); GLUCOSE,RANDOM 242 mg/dL (74-106); MAGNESIUM 2.9 mg/dL (1.8-2.4); PHOSPHOROUS 3.2 mg/dL (2.5-4.9); POTASSIUM 3.9 mmol/L (3.5-5.1); SGOT/AST 20 U/L (15-37); SGPT/ALT 16 U/L (13-61); SODIUM 159 mmol/L (136-145)
[2018-10-18 07:45] LABS: BLOOD UREA NITROGEN 107 mg/dL (7-18)
[2018-10-18] MEDS ORDERED: dilTIAZem HCL 50 MG/10 ML - 10 ML VIAL IVPUSH ONE (08:11)
[2018-10-18] MEDS ORDERED: PT OWN MED DRAWER 7, Y5N ONE (09:30)
--- NOTE | 2018-10-18 09:30 | PN ---
Progress Note (short form) - Note Progress Note: s: intubated, sedated Current Medications Acetaminophen (Ofirmev Injection -) 1,000 mg IVPB Q6H PRN PRN Reason: FEVER Last Admin: 10/17/18 01:36 Dose: 1,000 mg Albuterol/Ipratropium (Duoneb -) 1 amp NEB Q4H PRN PRN Reason: SHORTNESS OF BREATH Chlorhexidine Gluconate (Hibiclens For Decolonization -) 1 applic TP HS USHA Last Admin: 10/17/18 21:17 Dose: 1 applic Propofol (Diprivan -) 1,000,000 mcg in 100 mls @ 4.491 mls/hr IVPB TITR USHA; Protocol Last Admin: 10/18/18 01:29 Dose: 15 mcg/kg/min, 13.472 mls/hr Ampicillin Sodium/Sulbactam (Sodium 1.5 gm/ Sodium Chloride) 100 mls @ 200 mls/ hr IVPB Q6H-IV USHA Last Admin: 10/18/18 03:29 Dose: 200 mls/hr Dextrose/Lactated Ringer's (D5-Lr -) 1,000 mls @ 125 mls/hr IV ASDIR USHA Insulin Aspart (Novolog Vial Sliding Scale -) 1 vial SQ Q4HPO USHA; Protocol Last Admin: 10/18/18 05:21 Dose: 4 units Midazolam HCl (Versed -) 2 mg IVPUSH Q2H PRN PRN Reason: AGITATION Last Admin: 10/15/18 16:26 Dose: 2 mg Mupirocin (Bactroban Ointment (For Decolonization) -) 1 applic NS BID USHA Stop: 10/20/18 21:59 Last Admin: 10/17/18 21:17 Dose: 1 applic Nystatin (Mycostatin Cream -) 1 applic TP BID USHA Last Admin: 10/17/18 21:18 Dose: 1 applic Pantoprazole Sodium (Protonix Iv) 40 mg IVPUSH DAILY [facility] Vital Signs Period Temp Pulse Resp BP Sys/Lambert Pulse Ox Last 24 Hr 97 F-98.8 F 90-110 23-30 94-144/54-78 98-98 Constitutional: Yes: intubated, sedated Eyes: No: Sclera Icterus HENT: No: Nasal Congestion Neck: No: Decreased ROM Respiratory: Yes: CTA Bilaterally (decr diffusely, anteriorly ausculated) No: Accessory Muscle Use, Wheezes Gastrointestinal: Yes: Normal Bowel Sounds. No: Distention, Hepatomegaly, Palpable Mass, Tenderness Cardiovascular: Yes: Pulse Irregular JVD: no Carotid Bruit: No PMI: Non-Displaced Heart Sounds: Yes: S1, S2. 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 consolidation/ bibasilar atelectasis tele: afib, occasional RVR 80M h/o chronic systolic HF, ICD, afib on xarelto, epistaxis p/w coffee ground emesis, alt mental status coffee ground emesis - history of epistaxis, no hx GI bleed - transfuse per critical care - manage per GI, s/p EGD afib - on carvedilol, digoxin at home - history of epistaxis requiring transfusions, cauterization - holding xarelto - holding PO meds, diltiazem IV PRN for tachycardia paroxysmal VT, s/p ICD - multiple prior episodes, prior shock - monitoring on tele Chronic systolic HF - EF 40-45%echo 09/2017 - on torsemide, carvedilol at home - per patient's in the last 1-2 weeks more edema and short of breath. 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
[2018-10-18] MEDS: PANTOPRAZOLE SODIUM 40 MG VIAL IVPUSH SCH (09:40)
[2018-10-18] MEDS: NYSTATIN 100,000 UNIT/GM TOPICAL CREAM 15 GM TUBE TP SCH ×2 (09:44→21:11)
[2018-10-18] MEDS: MUPIROCIN 2% TOPICAL OINTMENT FOR DECOLONIZATION NS SCH ×2 (09:48→21:10)
[2018-10-18] MEDS ORDERED: PANTOPRAZOLE 40 MG TABLET (FP) PO SCH (10:00)
--- NOTE | 2018-10-18 11:33 | PN ---
Physical Exam: SUBJECTIVE: Patient seen this morning off propofol this morning and not awake or alert. Patient on sedation and vacation. OBJECTIVE: Vital Signs Temperature 98.9 F 10/18/18 10:00 Pulse Rate 122 H 10/18/18 11:00 Respiratory Rate 30 H 10/18/18 11:00 Blood Pressure 122/67 10/18/18 11:00 O2 Sat by Pulse Oximetry (%) 98 10/18/18 10:00 GENERAL: The patient is intubated and sedated, obese HEAD: Normal with no signs of trauma. ENT: NG tube in right nostril LUNGS: Breath sounds equal, clear to auscultation bilaterally, HEART: Regular rate and rhythm, ICD inplace ABDOMEN: Soft, nontender, nondistended, normoactive bowel sounds EXTREMITIES: 2+ pulses, warm, well-perfused, no edema. SKIN: Warm, dry, normal turgor, no rashes or lesions noted CBCD WBC 15.9 K/mm3 (4.0-10.0) H 10/18/18 05:30 RBC 2.42 M/mm3 (4.00-5.60) L 10/18/18 05:30 Hgb 7.2 GM/dL (11.7-16.9) L 10/18/18 05:30 Hct 21.7 % (35.4-49) L 10/18/18 05:30 MCV 89.7 fl (80-96) 10/18/18 05:30 MCHC 33.0 g/dl (32.0-35.9) 10/18/18 05:30 RDW 16.4 % (11.9-15.9) H 10/18/18 05:30 Plt Count 143 K/MM3 (134-434) 10/18/18 05:30 MPV 9.4 fl (7.5-11.1) 10/18/18 05:30 CMP Sodium 159 mmol/L (136-145) H 10/18/18 05:30 Potassium 3.9 mmol/L (3.5-5.1) 10/18/18 05:30 Chloride 123 mmol/L (98-107) H 10/18/18 05:30 Carbon Dioxide 30 mmol/L (21-32) 10/18/18 05:30 Anion Gap 7 MMOL/L (8-16) L 10/18/18 05:30 BUN 107 mg/dL (7-18) H* 10/18/18 05:30 Creatinine 2.2 mg/dL (0.55-1.3) H 10/18/18 05:30 Creat Clearance w eGFR 28.94 (>60) 10/18/18 05:30 Calcium 8.2 mg/dL (8.5-10.1) L 10/18/18 05:30 Total Bilirubin 1.2 mg/dL (0.2-1) H 10/18/18 05:30 AST 20 U/L (15-37) 10/18/18 05:30 ALT 16 U/L (13-61) 10/18/18 05:30 Alkaline Phosphatase 101 U/L (45-117) 10/18/18 05:30 Total Protein 5.0 g/dl (6.4-8.2) L 10/18/18 05:30 Albumin 2.3 g/dl (3.4-5.0) L 10/18/18 05:30 Active Medications Acetaminophen (Ofirmev Injection -) 1,000 mg IVPB Q6H PRN PRN Reason: FEVER Last Admin: 10/17/18 01:36 Dose: 1,000 mg Albuterol/Ipratropium (Duoneb -) 1 amp NEB Q4H PRN PRN Reason: SHORTNESS OF BREATH Chlorhexidine Gluconate (Hibiclens For Decolonization -) 1 applic TP HS USHA Last Admin: 10/17/18 21:17 Dose: 1 applic Propofol (Diprivan -) 1,000,000 mcg in 100 mls @ 4.491 mls/hr IVPB TITR USHA; Protocol Last Admin: 10/18/18 01:29 Dose: 15 mcg/kg/min, 13.472 mls/hr Ampicillin Sodium/Sulbactam (Sodium 1.5 gm/ Sodium Chloride) 100 mls @ 200 mls/ hr IVPB Q6H-IV USHA Last Admin: 10/18/18 09:40 Dose: 200 mls/hr Dextrose/Lactated Ringer's (D5-Lr -) 1,000 mls @ 125 mls/hr IV ASDIR USHA Insulin Aspart (Novolog Vial Sliding Scale -) 1 vial SQ Q4HPO USHA; Protocol Last Admin: 10/18/18 05:21 Dose: 4 units Midazolam HCl (Versed -) 2 mg IVPUSH Q2H PRN PRN Reason: AGITATION Last Admin: 10/15/18 16:26 Dose: 2 mg Mupirocin (Bactroban Ointment (For Decolonization) -) 1 applic NS BID [facility] Stop: 10/20/18 21:59 Last Admin: 10/18/18 09:48 Dose: 1 applic Nystatin (Mycostatin Cream -) 1 applic TP BID [facility] Last Admin: 10/18/18 09:44 Dose: 1 applic Pantoprazole Sodium (Protonix Iv) 40 mg IVPUSH DAILY [facility] Last Admin: 10/18/18 09:40 Dose: 40 mg ASSESSMENT/PLAN: Patient is a 82 y/o male with a history of afib, HTN, DM, HFrEF w ICD, and AAA who is here for GI bleed. Neuro - intubated and sedated - on Versed and Propofol Cardio - hx afib, hold po meds, diltiazem IV prn for tachy - hx AAA 4.8, f/u yearly imaging - Echo 10/13 EF: 40 -45% - hold po torsemide - ICD in place - cardizen 10 mg IV push given once Pulm - intubated with IPPV - TV 500, R 30, O2 50%, PEEP 10 - CXR; infiltrates, pneumonitis vs aspiration pneumonia - f/u CXR - Chest CT: bilateral lower lobe consolidation/atelectasis - NGT to suction - poor weaning candidate for today, wean tomorrow morning GI - Upper Gi bleed vs vomiting epistaxis - received 5 units PRBC - EGD: two shallow ulcers found and clotting in the fundus - protonix 40 daily Neprho - BUN/Cr elevated - baseline Cr 1, hold diuresis - hypernatremic, water deficit 6.7 L - rate @ 139 for correction, due to CHF history low fluids - D5 LR @ 125, continued hypernatremia, likely uremia 2/2 to GI bleed Heme - transfusion threshold 8 - received 4 units already - another unit today, f/u post CBC transfusion ID - possible PNA vs Pnuemonitis - continue Unasyn day 4 - afebrile, WBC remains elevated Endo - SS - 18 units in 24 hours FEN - NPO, intubated - monitor NA closely Dispo: continue sedation vacation, f/u post transfusion CBC, try to wean tomorrow Visit type - Emergency Visit Emergency Visit: No - New Patient This patient is new to me today: No - Critical Care Critical Care patient: Yes Total Critical Care Time (in minutes): 40 Critical Care Statement: The care of this patient involved high complexity decision making to prevent further life threatening deterioration of the patient 's condition and/or to evaluate & treat vital organ system(s) failure or risk of failure.
[2018-10-18] MEDS: DEXTROSE 5%-LACTATED RINGERS 1,000 ML IV SCH ×2 (11:36→21:11)
--- NOTE | 2018-10-18 12:14 | PN ---
Teaching Attending Note Name of Resident: Kamini Cooper ATTENDING PHYSICIAN STATEMENT I saw and evaluated the patient. I reviewed the resident's note and discussed the case with the resident. I agree with the resident's findings and plan as documented. SUBJECTIVE: Patient seen and examined in the ICU. Intubated and sedated on AC Mode of vent. Sedation was stopped about 1 hour ago. Results of endoscopy noted. No pressors. No occult bleeding. Intake & Output 10/15/18 10/16/18 10/17/18 10/18/18 23:59 23:59 23:59 23:59 Intake Total 450 1484 2604.8 1298.8 Output Total 2950 2855 2700 1300 Balance -2500 -1371 -95.2 -1.2 Weight 304 lb 3.806 oz 307 lb 8.717 oz 308 lb 310 lb 13.76 oz Last Vital Signs Temp Pulse Resp BP Pulse Ox 99.1 F 122 H 30 H 142/85 98 10/18/18 11:52 10/18/18 11:52 10/18/18 11:52 10/18/18 11:52 10/18/18 10:00 Active Medications Acetaminophen (Ofirmev Injection -) 1,000 mg IVPB Q6H PRN PRN Reason: FEVER Last Admin: 10/17/18 01:36 Dose: 1,000 mg Albuterol/Ipratropium (Duoneb -) 1 amp NEB Q4H PRN PRN Reason: SHORTNESS OF BREATH Chlorhexidine Gluconate (Hibiclens For Decolonization -) 1 applic TP HS USHA Last Admin: 10/17/18 21:17 Dose: 1 applic Propofol (Diprivan -) 1,000,000 mcg in 100 mls @ 4.491 mls/hr IVPB TITR [facility]; Protocol Last Titration: 10/18/18 08:00 Dose: 0 mcg/kg/min, 0 mls/hr Ampicillin Sodium/Sulbactam (Sodium 1.5 gm/ Sodium Chloride) 100 mls @ 200 mls/ hr IVPB Q6H-IV USHA Last Admin: 10/18/18 09:40 Dose: 200 mls/hr Dextrose/Lactated Ringer's (D5-Lr -) 1,000 mls @ 125 mls/hr IV ASDIR [facility] Last Admin: 10/18/18 11:36 Dose: Not Given Insulin Aspart (Novolog Vial Sliding Scale -) 1 vial SQ Q4HPO [facility]; Protocol Last Admin: 10/18/18 11:34 Dose: 4 units Midazolam HCl (Versed -) 2 mg IVPUSH Q2H PRN PRN Reason: AGITATION Last Admin: 10/15/18 16:26 Dose: 2 mg Mupirocin (Bactroban Ointment (For Decolonization) -) 1 applic NS BID [facility] Stop: 10/20/18 21:59 Last Admin: 10/18/18 09:48 Dose: 1 applic Nystatin (Mycostatin Cream -) 1 applic TP BID [facility] Last Admin: 10/18/18 09:44 Dose: 1 applic Pantoprazole Sodium (Protonix Iv) 40 mg IVPUSH DAILY [facility] Last Admin: 10/18/18 09:40 Dose: 40 mg Gen; Intubated sedated HEENT: orally intubated PULM: diminished bases, no wheezes CV: tachy, irreg ABD: soft, +BS EXT: venous stasis, pitting and weeping LE edema NEURO: sedated Laboratory Results - last 24 hr 10/15/18 10/16/18 10/17/18 10:11 05:30 14:22 WBC RBC Hgb Hct MCV MCH MCHC RDW Plt Count MPV Absolute Neuts (auto) Neutrophils % Lymphocytes % Monocytes % Eosinophils % Basophils % Nucleated RBC % Sodium Potassium Chloride Carbon Dioxide Anion Gap BUN Creatinine Creat Clearance w eGFR POC Glucometer 232 Random Glucose Calcium Phosphorus Magnesium Total Bilirubin AST ALT Alkaline Phosphatase Total Protein Albumin PEGGY Screen Positive H PEGGY Homogeneous Pattern TNP PEGGY Nucleolar Pattern TNP PEGGY Spindle Chandrika Pattern TNP PEGGY Midbody Pattern TNP PEGGY Centriole Pattern TNP PEGGY Nuclear Dot Pattern TNP PEGGY PCNA Pattern TNP PEGGY Nuclear Membr Pat TNP PEGGY Speckled Pattern 1:80 PEGGY Centromere Pattern TNP Smooth Musc &HEALTH MANAGER Intrp 9 Hepatitis A Ab Total Negative Hep Bs Antigen Negative Hep Bs Antibody Non reactive Hep B Core Total Ab Negative Hep C Ab Diagnostic <0.1 Blood Type Antibody Screen Crossmatch See Detail 10/17/18 10/17/18 10/17/18 15:20 15:25 17:28 WBC 18.2 H RBC 2.61 L Hgb 7.6 L Hct 23.3 L MCV 89.1 MCH 29.1 MCHC 32.7 RDW 16.4 H Plt Count 148 MPV 8.9 Absolute Neuts (auto) Neutrophils % Lymphocytes % Monocytes % Eosinophils % Basophils % Nucleated RBC % Sodium 157 H Potassium 3.8 Chloride 122 H Carbon Dioxide 29 Anion Gap 7 L BUN 104 H Creatinine 2.2 H Creat Clearance w eGFR 28.94 POC Glucometer 221 Random Glucose 242 H Calcium 8.4 L Phosphorus Magnesium Total Bilirubin AST ALT Alkaline Phosphatase Total Protein Albumin PEGGY Screen PEGGY Homogeneous Pattern PEGGY Nucleolar Pattern PEGGY Spindle Chandrika Pattern PEGGY Midbody Pattern PEGGY Centriole Pattern PEGGY Nuclear Dot Pattern PEGGY PCNA Pattern PEGGY Nuclear Membr Pat PEGGY Speckled Pattern PEGGY Centromere Pattern Smooth Musc &HEALTH MANAGER Intrp Hepatitis A Ab Total Hep Bs Antigen Hep Bs Antibody Hep B Core Total Ab Hep C Ab Diagnostic Blood Type Antibody Screen Crossmatch 10/17/18 10/18/18 10/18/18 21:42 03:31 05:18 WBC RBC Hgb Hct MCV MCH MCHC RDW Plt Count MPV Absolute Neuts (auto) Neutrophils % Lymphocytes % Monocytes % Eosinophils % Basophils % Nucleated RBC % Sodium Potassium Chloride Carbon Dioxide Anion Gap BUN Creatinine Creat Clearance w eGFR POC Glucometer 191 224 219 Random Glucose Calcium Phosphorus Magnesium Total Bilirubin AST ALT Alkaline Phosphatase Total Protein Albumin PEGGY Screen PEGGY Homogeneous Pattern PEGGY Nucleolar Pattern PEGGY Spindle Chandrika Pattern PEGGY Midbody Pattern PEGGY Centriole Pattern PEGGY Nuclear Dot Pattern PEGGY PCNA Pattern PEGGY Nuclear Membr Pat PEGGY Speckled Pattern PEGGY Centromere Pattern Smooth Musc &HEALTH MANAGER Intrp Hepatitis A Ab Total Hep Bs Antigen Hep Bs Antibody Hep B Core Total Ab Hep C Ab Diagnostic Blood Type Antibody Screen Crossmatch 10/18/18 10/18/18 10/18/18 05:30 05:30 09:14 WBC 15.9 H RBC 2.42 L Hgb 7.2 L Hct 21.7 L MCV 89.7 MCH 29.6 MCHC 33.0 RDW 16.4 H Plt Count 143 MPV 9.4 Absolute Neuts (auto) 12.3 H Neutrophils % 77.3 Lymphocytes % 11.7 D Monocytes % 10.8 H Eosinophils % 0.1 D Basophils % 0.1 Nucleated RBC % 1 H Sodium 159 H Potassium 3.9 Chloride 123 H Carbon Dioxide 30 Anion Gap 7 L BUN 107 H* Creatinine 2.2 H Creat Clearance w eGFR 28.94 POC Glucometer Random Glucose 242 H Calcium 8.2 L Phosphorus 3.2 Magnesium 2.9 H Total Bilirubin 1.2 H AST 20 ALT 16 Alkaline Phosphatase 101 Total Protein 5.0 L Albumin 2.3 L PEGGY Screen PEGGY Homogeneous Pattern PEGGY Nucleolar Pattern PEGGY Spindle Chandrika Pattern PEGGY Midbody Pattern PEGGY Centriole Pattern PEGGY Nuclear Dot Pattern PEGGY PCNA Pattern PEGGY Nuclear Membr Pat PEGGY Speckled Pattern PEGGY Centromere Pattern Smooth Musc &HEALTH MANAGER Intrp Hepatitis A Ab Total Hep Bs Antigen Hep Bs Antibody Hep B Core Total Ab Hep C Ab Diagnostic Blood Type A POSITIVE Antibody Screen Negative Crossmatch See Detail 10/18/18 11:30 WBC RBC Hgb Hct MCV MCH MCHC RDW Plt Count MPV Absolute Neuts (auto) Neutrophils % Lymphocytes % Monocytes % Eosinophils % Basophils % Nucleated RBC % Sodium Potassium Chloride Carbon Dioxide Anion Gap BUN Creatinine Creat Clearance w eGFR POC Glucometer 218 Random Glucose Calcium Phosphorus Magnesium Total Bilirubin AST ALT Alkaline Phosphatase Total Protein Albumin PEGGY Screen PEGGY Homogeneous Pattern PEGGY Nucleolar Pattern PEGGY Spindle Chandrika Pattern PEGGY Midbody Pattern PEGGY Centriole Pattern PEGGY Nuclear Dot Pattern PEGGY PCNA Pattern PEGGY Nuclear Membr Pat PEGGY Speckled Pattern PEGGY Centromere Pattern Smooth Musc &HEALTH MANAGER Intrp Hepatitis A Ab Total Hep Bs Antigen Hep Bs Antibody Hep B Core Total Ab Hep C Ab Diagnostic Blood Type Antibody Screen Crossmatch IMP: Acute Respiratory Failure UGIB CHF PPM/AICD RENEA AAA Acute blood loss anemia HTN DM CH AICD/PPM Atrial fibrillation on eliquis (?) Aspiration Pneumonitis Follow CBC Normal transfusion threshold: Hgb 8 SCDs IVF D/C sedation NGT to suction Hold diuresis ABX coverage D/C sedation and wean attempts for extubation Dr Saini Critical care time spent in reviewing chart, evaluating patient and formulating plan - 36 minutes
--- NOTE | 2018-10-18 13:53 | EKG ---
Test Reason : Blood Pressure : / mmHG Vent. Rate : 108 BPM Atrial Rate : 108 BPM P-R Int : 156 ms QRS Dur : 142 ms QT Int : 386 ms P-R-T Axes : 106 000 110 degrees QTc Int : 517 ms ATRIAL FIBRILLATION LEFT AXIS DEVIATION RIGHT BUNDLE BRANCH BLOCK ABNORMAL ECG Confirmed by Tae Major MD ([id number]) on 10/18/2018 1:52:58 PM Referred By: Confirmed By:Tae Major MD
--- NOTE | 2018-10-18 16:10 | PN ---
Teaching Attending Note Name of Resident: Anabela Maciel ATTENDING PHYSICIAN STATEMENT I saw and evaluated the patient. I reviewed the resident's note and discussed the case with the resident. I agree with the resident's findings and plan as documented. SUBJECTIVE: Remained intubated and sedated OBJECTIVE: Vital Signs Temperature 98.4 F 10/18/18 14:00 Pulse Rate 101 H 10/18/18 14:00 Respiratory Rate 30 H 10/18/18 14:27 Blood Pressure 96/67 10/18/18 14:00 O2 Sat by Pulse Oximetry (%) 100 10/18/18 12:40 Elderly man s/p intubated HEENT: NG and ETT at place NECK: No JVd No Bruit CHEST: B/L Basal crepts CVS: S1S2 Irr ABD: Obese, non tender Bs + EXT: Trace edema feet, Pulses + [employer]CR[employer]E PAVER: sedated s/p intubation. CBC, BMP 10/18/18 05:30 10/18/18 05:30 Active Medications Acetaminophen (Ofirmev Injection -) 1,000 mg IVPB Q6H PRN PRN Reason: FEVER Last Admin: 10/17/18 01:36 Dose: 1,000 mg Albuterol/Ipratropium (Duoneb -) 1 amp NEB Q4H PRN PRN Reason: SHORTNESS OF BREATH Chlorhexidine Gluconate (Hibiclens For Decolonization -) 1 applic TP HS USHA Last Admin: 10/17/18 21:17 Dose: 1 applic Propofol (Diprivan -) 1,000,000 mcg in 100 mls @ 4.491 mls/hr IVPB TITR [facility]; Protocol Last Titration: 10/18/18 13:30 Dose: 10 mcg/kg/min, 8.981 mls/hr Ampicillin Sodium/Sulbactam (Sodium 1.5 gm/ Sodium Chloride) 100 mls @ 200 mls/ hr IVPB Q6H-IV [facility] Last Admin: 10/18/18 15:10 Dose: 200 mls/hr Dextrose/Lactated Ringer's (D5-Lr -) 1,000 mls @ 125 mls/hr IV ASDIR [facility] Last Admin: 10/18/18 11:36 Dose: Not Given Insulin Aspart (Novolog Vial Sliding Scale -) 1 vial SQ Q4HPO [facility]; Protocol Last Admin: 10/18/18 14:55 Dose: 6 units Midazolam HCl (Versed -) 2 mg IVPUSH Q2H PRN PRN Reason: AGITATION Last Admin: 10/15/18 16:26 Dose: 2 mg Mupirocin (Bactroban Ointment (For Decolonization) -) 1 applic NS BID [facility] Stop: 10/20/18 21:59 Last Admin: 10/18/18 09:48 Dose: 1 applic Nystatin (Mycostatin Cream -) 1 applic TP BID [facility] Last Admin: 10/18/18 09:44 Dose: 1 applic Pantoprazole Sodium (Protonix Iv) 40 mg IVPUSH DAILY [facility] Last Admin: 10/18/18 09:40 Dose: 40 mg ASSESSMENT AND PLAN:82 yrs old M h/o chronic systolic HF, ICD, afib on xarelto, epistaxis p/w coffee ground emesis, alt mental status. intubated for airways protection , dropped H/H so far received 5 unit PRBC evaluated by cardiology , Critical dread and GI underwent EGD shows Gastric ulcer in Fundus, remained intubated, patient has hypernatremia, disproportionately high B Urea Problem List - Problems (1) Upper GI bleed Assessment/Plan: Due to Gastric ulcer F/U GI recommendation cont IV PPI Daily 40 mg Protonix serial H/H Xarelto is on Hold, possibality of epistaxis and ingested blood. f/ u serial H/H Code(s): K92.2 - GASTROINTESTINAL HEMORRHAGE, UNSPECIFIED (2) Atrial fibrillation Assessment/Plan: Rate controlled AC is on Hold due to acute bleeding. Code(s): I48.91 - UNSPECIFIED ATRIAL FIBRILLATION (3) Hypernatremia Assessment/Plan: Due to dehydration and Switch to D5 RL 125 CC /HRand F/U BMP Code(s): E87.0 - HYPEROSMOLALITY AND HYPERNATREMIA (4) AICD (automatic cardioverter/defibrillator) present Assessment/Plan: H/O VT s/p AICD no active issue Code(s): Z95.810 - PRESENCE OF AUTOMATIC (IMPLANTABLE) CARDIAC DEFIBRILLATOR (5) RENEA (acute kidney injury) Assessment/Plan: RENEA on CKD stgae 3 , disproportionately high Urea probably due to GI bleedF/U BMP after Hydration Code(s): N17.9 - ACUTE KIDNEY FAILURE, UNSPECIFIED (6) CKD (chronic kidney disease) stage 3, GFR 30-59 ml/min Assessment/Plan: Due to Diabetic Nephropathy F/U BMP after Hydration Code(s): N18.3 - CHRONIC KIDNEY DISEASE, STAGE 3 (MODERATE) (7) Diabetes mellitus Assessment/Plan: On correction dose insulin optimize Glycemic control. Code(s): E11.9 - TYPE 2 DIABETES MELLITUS WITHOUT COMPLICATIONS Qualifiers: Diabetes mellitus type: type 2 (8) CHF (congestive heart failure) Assessment/Plan: CHF with low EF currently on Ventilator saturating well Code(s): I50.9 - HEART FAILURE, UNSPECIFIED (9) Acute blood loss anemia Assessment/Plan: Recived multiple PRBC transfusion f/u serial H/H Code(s): D62 - ACUTE POSTHEMORRHAGIC ANEMIA (10) Aspiration pneumonia Assessment/Plan: Possibality of aspirtaion pneumonia on Unasyn F/U cultures, so far all cultures are -ve. Code(s): J69.0 - PNEUMONITIS DUE TO INHALATION OF FOOD AND VOMIT
--- NOTE | 2018-10-18 16:27 | PN ---
Physical Exam: SUBJECTIVE: Patient seen and examined, intubated. OBJECTIVE: Vital Signs Period Temp Pulse Resp BP Sys/Lambert Pulse Ox Last 24 Hr 98 F-99.1 F 90-125 30-30 94-148/56-87 98-100 GENERAL: The patient is sedated, on mechanical ventilation. HEAD: Normal with no signs of trauma. EYES: PERRL, conjunctiva clear. ENT: Oropharynx clear without exudates, moist mucous membranes. NECK: Trachea midline, full range of motion, supple. LUNGS: Clear to auscultation bilaterally, no wheezes, no crackles. HEART: Irregular rate and rhythm, S1, S2 without murmur, rub or gallop. ABDOMEN: Soft, nontender, nondistended, normoactive bowel sounds. EXTREMITIES: 2+ pulses, warm, no edema. NEUROLOGICAL: sedated SKIN: Warm, dry, no rashes. Laboratory Results - last 24 hr 10/15/18 10/16/18 10/17/18 10:11 05:30 17:28 WBC RBC Hgb Hct MCV MCH MCHC RDW Plt Count MPV Absolute Neuts (auto) Neutrophils % Lymphocytes % Monocytes % Eosinophils % Basophils % Nucleated RBC % Sodium Potassium Chloride Carbon Dioxide Anion Gap BUN Creatinine Creat Clearance w eGFR POC Glucometer 221 Random Glucose Calcium Phosphorus Magnesium Total Bilirubin AST ALT Alkaline Phosphatase Total Protein Albumin Smooth Musc &TREE KILLER Intrp 9 Blood Type A POSITIVE Antibody Screen Negative Crossmatch See Detail 10/17/18 10/18/18 10/18/18 21:42 03:31 05:18 WBC RBC Hgb Hct MCV MCH MCHC RDW Plt Count MPV Absolute Neuts (auto) Neutrophils % Lymphocytes % Monocytes % Eosinophils % Basophils % Nucleated RBC % Sodium Potassium Chloride Carbon Dioxide Anion Gap BUN Creatinine Creat Clearance w eGFR POC Glucometer 191 224 219 Random Glucose Calcium Phosphorus Magnesium Total Bilirubin AST ALT Alkaline Phosphatase Total Protein Albumin Smooth Musc &TREE KILLER Intrp Blood Type Antibody Screen Crossmatch 10/18/18 10/18/18 10/18/18 05:30 05:30 09:14 WBC 15.9 H RBC 2.42 L Hgb 7.2 L Hct 21.7 L MCV 89.7 MCH 29.6 MCHC 33.0 RDW 16.4 H Plt Count 143 MPV 9.4 Absolute Neuts (auto) 12.3 H Neutrophils % 77.3 Lymphocytes % 11.7 D Monocytes % 10.8 H Eosinophils % 0.1 D Basophils % 0.1 Nucleated RBC % 1 H Sodium 159 H Potassium 3.9 Chloride 123 H Carbon Dioxide 30 Anion Gap 7 L BUN 107 H* Creatinine 2.2 H Creat Clearance w eGFR 28.94 POC Glucometer Random Glucose 242 H Calcium 8.2 L Phosphorus 3.2 Magnesium 2.9 H Total Bilirubin 1.2 H AST 20 ALT 16 Alkaline Phosphatase 101 Total Protein 5.0 L Albumin 2.3 L Smooth Musc &TREE KILLER Intrp Blood Type A POSITIVE Antibody Screen Negative Crossmatch See Detail 10/18/18 10/18/18 11:30 14:53 WBC RBC Hgb Hct MCV MCH MCHC RDW Plt Count MPV Absolute Neuts (auto) Neutrophils % Lymphocytes % Monocytes % Eosinophils % Basophils % Nucleated RBC % Sodium Potassium Chloride Carbon Dioxide Anion Gap BUN Creatinine Creat Clearance w eGFR POC Glucometer 218 252 Random Glucose Calcium Phosphorus Magnesium Total Bilirubin AST ALT Alkaline Phosphatase Total Protein Albumin Smooth Musc &TREE KILLER Intrp Blood Type Antibody Screen Crossmatch Active Medications Generic Name Dose Route Start Last Admin Trade Name Freq PRN Reason Stop Dose Admin Acetaminophen 1,000 mg 10/16/18 23:47 10/17/18 01:36 Ofirmev Injection - IVPB 1,000 mg Q6H PRN Administration FEVER Albuterol/Ipratropium 1 amp 10/16/18 07:05 Duoneb - NEB Q4H PRN SHORTNESS OF BREATH Chlorhexidine Gluconate 1 applic 10/15/18 22:00 10/17/18 21:17 Hibiclens For Decolonization - TP 1 applic HS USHA Administration Propofol 1,000,000 mcg in 100 mls @ 4.491 mls/hr 10/15/18 12:00 10/18/18 13: 30 Diprivan - IVPB 10 mcg/kg/min TITR [facility] 8.981 mls/hr Titration Protocol 5 MCG/KG/MIN Ampicillin Sodium/Sulbactam 100 mls @ 200 mls/hr 10/15/18 22:15 10/18/18 15: 10 Sodium 1.5 gm/ Sodium Chloride IVPB 200 mls/hr Q6H-IV [facility] Administration Dextrose/Lactated Ringer's 1,000 mls @ 125 mls/hr 10/18/18 10:00 10/18/18 11: 36 D5-Lr - IV Not Given ASDIR [facility] Insulin Aspart 1 vial 10/17/18 14:00 10/18/18 14:55 Novolog Vial Sliding Scale - SQ 6 units Q4HPO [facility] Administration Protocol Midazolam HCl 2 mg 10/15/18 14:09 10/15/18 16:26 Versed - IVPUSH 2 mg Q2H PRN Administration AGITATION Mupirocin 1 applic 10/15/18 22:00 10/18/18 09:48 Bactroban Ointment (For Decolonization) - NS 10/20/18 21:59 1 applic BID [facility] Administration Nystatin 1 applic 10/15/18 22:00 10/18/18 09:44 Mycostatin Cream - TP 1 applic BID [facility] Administration Pantoprazole Sodium 40 mg 10/18/18 10:00 10/18/18 09:40 Protonix Iv IVPUSH 40 mg DAILY [facility] Administration ASSESSMENT/PLAN: The patient is 82 year old male patient with hx of atrial fibrillation, HTN, DM , DL, HFrEF s/p single lead ICD (medtronic) presented AMS after his son found him vomiting blood, and intubated in ED, admitted to ICU for futher management. Upper GI bleed: -no history of GI bleeding, coffee ground emesis -intubated and started PPI drip -monitored H/H, transfused -upper endoscopy done yesterday, positive 3mm clean based ulcer in proximal antrum and 8mm submucosal nodule in antrum -will monitor for bleeding -PPI Protonix 40 mg qd Acute respiratory failure: -intubated on AC -CT chest: bilateral lower lobe consolidation/atelectasis, CXR reviewed -will follow up Pulm recommendations -cont Duoneb q4h PRN Atrial Fibrillation: - holding xarelto due to bleeding - cont diltiazem IV PRN for tachycardia -cardiac monitoring Chronic systolic HF -last ECHO 09/2017, with EF 40-45% -strict I&O -continue to monitor volume status, hold diuretics Hypernatremia: -158 today, will cont. D5LR -monitor Ascending aorta aneurism: - 4.[address], arch 4.2 cm, no dissection HLD -hold statins DM -ISS ACHS -BGM ACHS -HgA1c 6.4% F/E/N: LR/Na 159/NPO Disposition: ICU monitoring Problem List - Problems (1) Abnormal liver function tests Code(s): R94.5 - ABNORMAL RESULTS OF LIVER FUNCTION STUDIES (2) Diabetic neuropathy Code(s): E11.40 - TYPE 2 DIABETES MELLITUS WITH DIABETIC NEUROPATHY, UNSP (3) Hypothyroidism Code(s): E03.9 - HYPOTHYROIDISM, UNSPECIFIED (4) Morbid exogenous obesity Code(s): E66.01 - MORBID (SEVERE) OBESITY DUE TO EXCESS CALORIES (5) Renal insufficiency Code(s): N28.9 - DISORDER OF KIDNEY AND URETER, UNSPECIFIED (6) Sleep apnea Code(s): G47.30 - SLEEP APNEA, UNSPECIFIED (7) Upper GI bleed Code(s): K92.2 - GASTROINTESTINAL HEMORRHAGE, UNSPECIFIED (8) Syncope Code(s): R55 - SYNCOPE AND COLLAPSE (9) Volume overload Code(s): E87.70 - FLUID OVERLOAD, UNSPECIFIED (10) Atrial fibrillation Code(s): I48.91 - UNSPECIFIED ATRIAL FIBRILLATION (11) CHF (congestive heart failure) Code(s): I50.9 - HEART FAILURE, UNSPECIFIED (12) Diabetes mellitus Code(s): E11.9 - TYPE 2 DIABETES MELLITUS WITHOUT COMPLICATIONS Qualifiers: Diabetes mellitus type: type 2 (13) Thoracic aortic aneurysm Code(s): I71.2 - THORACIC AORTIC ANEURYSM, WITHOUT RUPTURE (14) Venous stasis Code(s): I87.8 - OTHER SPECIFIED DISORDERS OF VEINS Visit type - Emergency Visit Emergency Visit: Yes ED Registration Date: 10/15/18 Care time: The patient presented to the Emergency Department on the above date and was hospitalized for further evaluation of their emergent condition. - New Patient This patient is new to me today: No - Critical Care Critical Care patient: Yes Total Critical Care Time (in minutes): 40 Critical Care Statement: The care of this patient involved high complexity decision making to prevent further life threatening deterioration of the patient 's condition and/or to evaluate & treat vital organ system(s) failure or risk of failure.
--- NOTE | 2018-10-18 16:33 | PATH ---
Surgical Pathology Report Patient Name: NEPTALI STRAUSS [facility]. Rec. #: [id number] /Age/Gender: 1935 (Age: 82) / M Account: [id number] Location: ICU IMPROVEMENT NURSE Taken: 10/17/2018 Received: 10/17/2018 Reported: 10/18/2018 Physicians: MD Stefan Tellez M.D. Specimen(s) Received A: BX SUBMUCOSAL ANTRAL NODULE B: BX STOMACH Clinical History GI bleed Postoperative diagnosis: esophageal ulcer, submucosal nodule in antrum Final Diagnosis A. SUBMUCOSAL ANTRAL NODULE, BIOPSY: GASTRIC ANTRAL-TYPE MUCOSA SHOWING FEATURES OF REACTIVE GASTROPATHY. IMMUNOSTAIN IS NEGATIVE FOR H. PYLORI ORGANISMS. Note: No submucosal tissue/lesion is identified. B. 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 IMMUNOSTAIN IS NEGATIVE FOR H. PYLORI ORGANISMS Electronically Signed Nancy Calhoun M.D. Gross Description A. Received in formalin, labeled "biopsy submucosal antral nodule" are 3 tucker, irregular portions of soft tissue ranging from 0.1-0.3 cm. in greatest dimension. The specimens are submitted in toto in one cassette. B. Received in formalin, labeled "biopsy stomach" are 3 tucker, irregular portions of soft tissue ranging from 0.3-0.4 cm. in greatest dimension. The specimens are submitted in toto in one cassette. /10/17/2018 saudi10/17/2018
[2018-10-18 18:05] LABS: BASO % 0.2 % (0-2.0); EOS % 0.1 % (0-4.5); HEMATOCRIT 25.3 % (35.4-49); HEMOGLOBIN 8.2 GM/dL (11.7-16.9); LYMPH % 8.3 % (8-40); MCH 30.1 pg (25.7-33.7); MCHC 32.6 g/dl (32.0-35.9); MEAN CELL VOLUME 92.3 fl (80-96); MEAN PLT VOLUME 9.3 fl (7.5-11.1); MONO % 12.1 % (3.8-10.2); NEUT % 79.3 % (42.8-82.8); PLATELET COUNT 150 K/MM3 (134-434); RBC 2.74 M/mm3 (4.00-5.60); RDW 16.6 % (11.9-15.9); WHITE BLOOD COUNT 17.9 K/mm3 (4.0-10.0)
[2018-10-18] MEDS: CHLORHEXIDINE GLUCONATE 4% CLEANSER FOR DECOLONIZATION TP SCH (21:11)
[2018-10-19] MEDS ORDERED: SODIUM CHLORIDE 100 ML IVPB ONE ×4 (02:22→22:06)
[2018-10-19] MEDS ORDERED: AMPICILLIN NA/SULBACTAM NA 1.5 GM VIAL ONE ×4 (02:22→22:06)
[2018-10-19] MEDS: AMPICILLIN NA/SULBACTAM NA 1.5 GM in SODIUM CHLORIDE 100 ML IVPB SCH ×4 (02:23→22:13)
[2018-10-19] MEDS: INSULIN SLIDING SCALE (NOVOLOG) 1 VIAL SQ SCH ×6 (02:23→22:46)
[2018-10-19] MEDS: ACETAMINOPHEN 1000 MG/100 ML VIAL (NON FORMULARY) IVPB PRN ×2 (05:37→23:08)
[2018-10-19 06:52] LABS: BASO % 0.2 % (0-2.0); EOS % 0.3 % (0-4.5); HEMATOCRIT 25.5 % (35.4-49); HEMOGLOBIN 8.3 GM/dL (11.7-16.9); LYMPH % 11.8 % (8-40); MCH 29.8 pg (25.7-33.7); MCHC 32.4 g/dl (32.0-35.9); MEAN CELL VOLUME 92.2 fl (80-96); MEAN PLT VOLUME 9.6 fl (7.5-11.1); MONO % 13.4 % (3.8-10.2); NEUT % 74.3 % (42.8-82.8); PLATELET COUNT 143 K/MM3 (134-434); RBC 2.77 M/mm3 (4.00-5.60); RDW 16.8 % (11.9-15.9); WHITE BLOOD COUNT 17.3 K/mm3 (4.0-10.0)
[2018-10-19 07:13] LABS: ALBUMIN 2.4 g/dl (3.4-5.0); ALK PHOS 110 U/L (45-117); ANION GAP 3 MMOL/L (8-16); BILIRUBIN,TOTAL 2.1 mg/dL (0.2-1); BLOOD UREA NITROGEN 75 mg/dL (7-18); CALCIUM 8.3 mg/dL (8.5-10.1); CHLORIDE 127 mmol/L (98-107); CO2 31 mmol/L (21-32); CREATININE 1.8 mg/dL (0.55-1.3); GLUCOSE,RANDOM 237 mg/dL (74-106); MAGNESIUM 3.3 mg/dL (1.8-2.4); PHOSPHOROUS 2.6 mg/dL (2.5-4.9); POTASSIUM 3.7 mmol/L (3.5-5.1); SGOT/AST 17 U/L (15-37); SGPT/ALT 16 U/L (13-61); TOT PROT 5.5 g/dl (6.4-8.2)
[2018-10-19 07:16] LABS: SODIUM 161 mmol/L (136-145)
[2018-10-19] MEDS: DEXTROSE 5%-LACTATED RINGERS 1,000 ML IV SCH ×2 (08:18→08:20)
[2018-10-19] MEDS: KCL 10 MEQ IVPB 10 MEQ/100 ML INFUS.BAG IVPB SCH ×4 (08:30→11:04)
--- NOTE | 2018-10-19 09:39 | PN ---
Progress Note (short form) - Note Progress Note: s: intubated Current Medications Acetaminophen (Ofirmev Injection -) 1,000 mg IVPB Q6H PRN PRN Reason: FEVER Last Admin: 10/19/18 05:37 Dose: 1,000 mg Albuterol/Ipratropium (Duoneb -) 1 amp NEB Q4H PRN PRN Reason: SHORTNESS OF BREATH Chlorhexidine Gluconate (Hibiclens For Decolonization -) 1 applic TP HS [facility] Last Admin: 10/18/18 21:11 Dose: 1 applic Propofol (Diprivan -) 1,000,000 mcg in 100 mls @ 4.491 mls/hr IVPB TITR [facility]; Protocol Last Titration: 10/19/18 00:24 Dose: 10 mcg/kg/min, 8.981 mls/hr Ampicillin Sodium/Sulbactam (Sodium 1.5 gm/ Sodium Chloride) 100 mls @ 200 mls/ hr IVPB Q6H-IV [facility] Last Admin: 10/19/18 02:23 Dose: 200 mls/hr Dextrose/Lactated Ringer's (D5-Lr -) 1,000 mls @ 125 mls/hr IV ASDIR [facility] Last Admin: 10/19/18 08:18 Dose: 125 mls/hr Potassium Chloride (Potassium Chloride 10 Meq Premix Ivpb -) 10 meq in 100 mls @ 100 mls/hr IVPB Q60M [facility] Stop: 10/19/18 10:29 Insulin Aspart (Novolog Vial Sliding Scale -) 1 vial SQ Q4HPO [facility]; Protocol Last Admin: 10/19/18 05:59 Dose: 4 units Midazolam HCl (Versed -) 2 mg IVPUSH Q2H PRN PRN Reason: AGITATION Last Admin: 10/15/18 16:26 Dose: 2 mg Mupirocin (Bactroban Ointment (For Decolonization) -) 1 applic NS BID [facility] Stop: 10/20/18 21:59 Last Admin: 10/18/18 21:10 Dose: 1 applic Nystatin (Mycostatin Cream -) 1 applic TP BID [facility] Last Admin: 10/18/18 21:11 Dose: 1 applic Pantoprazole Sodium (Protonix Iv) 40 mg IVPUSH DAILY [facility] Last Admin: 10/18/18 09:40 Dose: 40 mg Vital Signs Period Temp Pulse Resp BP Sys/Lambert Pulse Ox Last 24 Hr 98.4 F-100.9 F 88-125 18-30 94-142/53-87 97-100 Constitutional: Yes: intubated, sedated Eyes: No: Sclera Icterus HENT: No: Nasal Congestion Neck: No: Decreased ROM Respiratory: Yes: CTA Bilaterally (decr diffusely, anteriorly ausculated) No: Accessory Muscle Use, Wheezes Gastrointestinal: Yes: Normal Bowel Sounds. No: Distention, Hepatomegaly, Palpable Mass, Tenderness Cardiovascular: Yes: Pulse Irregular JVD: no Carotid Bruit: No PMI: Non-Displaced Heart Sounds: Yes: S1, S2. 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 consolidation/ bibasilar atelectasis tele: afib, occasional RVR 80M h/o chronic systolic HF, ICD, afib on xarelto, epistaxis p/w coffee ground emesis, alt mental status coffee ground emesis - history of epistaxis, no hx GI bleed - transfuse per critical care - manage per GI, s/p EGD afib - on carvedilol, digoxin at home - history of epistaxis requiring transfusions, cauterization - holding xarelto - holding PO meds, diltiazem IV PRN for tachycardia paroxysmal VT, s/p ICD - multiple prior episodes, prior shock - monitoring on tele Chronic systolic HF - EF 40-45%echo 09/2017 - on torsemide, carvedilol at home - per patient's in the last 1-2 weeks more edema and short of breath. 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
[2018-10-19] MEDS: NYSTATIN 100,000 UNIT/GM TOPICAL CREAM 15 GM TUBE TP SCH ×2 (09:48→21:22)
[2018-10-19] MEDS: MUPIROCIN 2% TOPICAL OINTMENT FOR DECOLONIZATION NS SCH ×2 (09:49→21:22)
[2018-10-19] MEDS: PANTOPRAZOLE SODIUM 40 MG VIAL IVPUSH SCH (09:53)
[2018-10-19] MEDS ORDERED: METOPROLOL TARTRATE 5 MG/5 ML VIAL IVPUSH ONE (10:25)
[2018-10-19] MEDS: DEXTROSE 5%-WATER - 1,000 ML IV SCH ×4 (10:33→20:15)
[2018-10-19] MEDS ORDERED: DEXTROSE 5%-WATER - 1,000 ML IV SCH (11:31)
[2018-10-19 11:35] LABS: OSMOLALITY,SERUM 365 mosm/kg (278-305)
--- NOTE | 2018-10-19 11:35 | CONSULT ---
Consult - text type - Consultation Consultation Note: Renal Consult for hypernatremia This is a 82 year old gentleman with hx of Afib, Hypertension, DM, CHF with reduced ejection fraction, CKD presented with AMS and upper GI bleed found to have gastric ulcer and worsening hypernatremia. s/p EGD that showed 3mm clean based ulcer in proximal antrum and 8mm submucosal nodule in antrum. Pt is currently intubated via ET tube, 40% FiO2 on A/C node of vent. Making urine via jameson. Has been on D5LR. Failed weaning this am as his mental status remained poor. PMhx: as above Allergies: NKDA Family Hx: unable to obtain Social hx: unable to obtain ROS: unable to obtain Home Medications Medication Instructions Recorded Atorvastatin Ca [Lipitor] 10 mg PO HS 10/15/17 Carvedilol [Coreg -] 18.75 mg PO BID 10/15/17 Sitagliptin Phosphate [Januvia] 100 mg PO DAILY 10/15/17 Pantoprazole Sodium [Protonix] 40 mg PO DAILY #4 tablet. 10/20/17 Rivaroxaban [Xarelto] 15 mg PO DAILY #30 tab 11/02/17 Amiodarone HCl [Cordarone -] 400 mg PO DAILY 10/15/18 Glyburide 10 mg PO BID 10/15/18 Torsemide [Demadex -] 200 mg PO BID 10/15/18 Vital Signs Temperature 99.5 F 10/19/18 10:00 Pulse Rate 130 H 10/19/18 10:54 Respiratory Rate 19 10/19/18 11:10 Blood Pressure 146/70 10/19/18 10:54 O2 Sat by Pulse Oximetry (%) 98 10/19/18 08:36 Intake & Output 10/16/18 10/17/18 10/18/18 10/19/18 23:59 23:59 23:59 23:59 Intake Total 1484 2604.8 3348.8 1145 Output Total 2855 2700 3700 700 Balance -1371 -95.2 -351.2 445 Weight 139.5 kg 139.706 kg 141.004 kg 136.9 kg Intubated via ET tube Neck supple irregular HR, no M/R CTA from anterior exam soft, obese abd + edmea upper extremity and lower extremity Jameson in place with yellow urine CBC, BMP 10/19/18 05:30 10/19/18 05:30 Laboratory Tests 10/16/18 10/17/18 10/17/18 22:25 03:45 05:30 Sodium 157 H 157 H 158 H Calcium Phosphorus Magnesium Albumin 10/17/18 10/18/18 10/19/18 15:25 05:30 05:30 Sodium 157 H 159 H 161 H* Calcium 8.3 L Phosphorus 2.6 Magnesium 3.3 H Albumin 2.4 L Current Medications Acetaminophen (Ofirmev Injection -) 1,000 mg IVPB Q6H PRN PRN Reason: FEVER Last Admin: 10/19/18 05:37 Dose: 1,000 mg Albuterol/Ipratropium (Duoneb -) 1 amp NEB Q4H PRN PRN Reason: SHORTNESS OF BREATH Chlorhexidine Gluconate (Hibiclens For Decolonization -) 1 applic TP HS [facility] Last Admin: 10/18/18 21:11 Dose: 1 applic Dextrose (Dextrose 5% Water Minibag 100ml) 100 ml IVPB DAILY [facility] Propofol (Diprivan -) 1,000,000 mcg in 100 mls @ 4.491 mls/hr IVPB TITR [facility]; Protocol Last Titration: 10/19/18 00:24 Dose: 10 mcg/kg/min, 8.981 mls/hr Ampicillin Sodium/Sulbactam (Sodium 1.5 gm/ Sodium Chloride) 100 mls @ 200 mls/ hr IVPB Q6H-IV [facility] Last Admin: 10/19/18 09:44 Dose: 200 mls/hr Dextrose (D5w -) 1,000 mls @ 100 mls/hr IV Q10H [facility] Last Admin: 10/19/18 10:51 Dose: 100 mls/hr Insulin Aspart (Novolog Vial Sliding Scale -) 1 vial SQ Q4HPO [facility]; Protocol Last Admin: 10/19/18 10:47 Dose: 4 units Midazolam HCl (Versed -) 2 mg IVPUSH Q2H PRN PRN Reason: AGITATION Last Admin: 10/15/18 16:26 Dose: 2 mg Mupirocin (Bactroban Ointment (For Decolonization) -) 1 applic NS BID [facility] Stop: 10/20/18 21:59 Last Admin: 10/19/18 09:49 Dose: 1 applic Nystatin (Mycostatin Cream -) 1 applic TP BID [facility] Last Admin: 10/19/18 09:48 Dose: 1 applic Pantoprazole Sodium (Protonix Iv) 40 mg IVPUSH DAILY [facility] Last Admin: 10/19/18 09:53 Dose: 40 mg This is a 82 year old gentleman with hx of Afib, Hypertension, DM, CHF with reduced ejection fraction, CKD presented with AMS and upper GI bleed found to have gastric ulcer and worsening hypernatremia. #Hypernatremia (water deficit ~10L) from lack of free water vs DI vs. Osmotic diuresis (high BUN or high salt load) #AK on CKD #GI Bleed #Respiratory failure #HF #Edema Change IVF to D5W at 125cc per hour, start oral free water once NGT is placed Unlikely to be DI given pt's urine output has been for the most part been less then 3L daily. Check serum and Urine JOHNATHAN as well. Renal function gradually improving, high BUN's likely due to upper GI bleed as opposed to overt renal dysfunction no indication for [facility] at this time continue supportive care, keep MAP > 65 if pt develops signs of respiratory distress can give Lasix as needed GI following Trend H/H, renal function Check Na levels Q12h Goal rate of correction 6-8 in 24 hours Thank you Bradley Flor DO
--- NOTE | 2018-10-19 11:54 | PN ---
Physical Exam: SUBJECTIVE: Patient seen and examined this morning and intubated. OBJECTIVE: Vital Signs Temperature 99.5 F 10/19/18 10:00 Pulse Rate 130 H 10/19/18 10:54 Respiratory Rate 19 10/19/18 11:10 Blood Pressure 146/70 10/19/18 10:54 O2 Sat by Pulse Oximetry (%) 98 10/19/18 08:36 GENERAL: The patient is intubated and sedated, obese HEAD: Normal with no signs of trauma. LUNGS: Breath sounds equal, clear to auscultation bilaterally, HEART: Regular rate and rhythm, ICD inplace ABDOMEN: Soft, nontender, nondistended, normoactive bowel sounds EXTREMITIES: 2+ pulses, increasing dependent edema SKIN: Warm, dry, normal turgor, no rashes or lesions noted CBCD WBC 17.3 K/mm3 (4.0-10.0) H 10/19/18 05:30 RBC 2.77 M/mm3 (4.00-5.60) L 10/19/18 05:30 Hgb 8.3 GM/dL (11.7-16.9) L 10/19/18 05:30 Hct 25.5 % (35.4-49) L 10/19/18 05:30 MCV 92.2 fl (80-96) 10/19/18 05:30 MCHC 32.4 g/dl (32.0-35.9) 10/19/18 05:30 RDW 16.8 % (11.9-15.9) H 10/19/18 05:30 Plt Count 143 K/MM3 (134-434) 10/19/18 05:30 MPV 9.6 fl (7.5-11.1) 10/19/18 05:30 CMP Sodium 161 mmol/L (136-145) H* 10/19/18 05:30 Potassium 3.7 mmol/L (3.5-5.1) 10/19/18 05:30 Chloride 127 mmol/L (98-107) H 10/19/18 05:30 Carbon Dioxide 31 mmol/L (21-32) 10/19/18 05:30 Anion Gap 3 MMOL/L (8-16) L 10/19/18 05:30 BUN 75 mg/dL (7-18) H 10/19/18 05:30 Creatinine 1.8 mg/dL (0.55-1.3) H 10/19/18 05:30 Creat Clearance w eGFR 36.49 (>60) 10/19/18 05:30 Calcium 8.3 mg/dL (8.5-10.1) L 10/19/18 05:30 Total Bilirubin 2.1 mg/dL (0.2-1) H 10/19/18 05:30 AST 17 U/L (15-37) 10/19/18 05:30 ALT 16 U/L (13-61) 10/19/18 05:30 Alkaline Phosphatase 110 U/L (45-117) 10/19/18 05:30 Total Protein 5.5 g/dl (6.4-8.2) L 10/19/18 05:30 Albumin 2.4 g/dl (3.4-5.0) L 10/19/18 05:30 Active Medications Acetaminophen (Ofirmev Injection -) 1,000 mg IVPB Q6H PRN PRN Reason: FEVER Last Admin: 10/19/18 05:37 Dose: 1,000 mg Albuterol/Ipratropium (Duoneb -) 1 amp NEB Q4H PRN PRN Reason: SHORTNESS OF BREATH Chlorhexidine Gluconate (Hibiclens For Decolonization -) 1 applic TP HS [facility] Last Admin: 10/18/18 21:11 Dose: 1 applic Dextrose (Dextrose 5% Water Minibag 100ml) 100 ml IVPB DAILY [facility] Propofol (Diprivan -) 1,000,000 mcg in 100 mls @ 4.491 mls/hr IVPB TITR [facility]; Protocol Last Titration: 10/19/18 00:24 Dose: 10 mcg/kg/min, 8.981 mls/hr Ampicillin Sodium/Sulbactam (Sodium 1.5 gm/ Sodium Chloride) 100 mls @ 200 mls/ hr IVPB Q6H-IV [facility] Last Admin: 10/19/18 09:44 Dose: 200 mls/hr Dextrose (D5w -) 1,000 mls @ 100 mls/hr IV Q10H [facility] Last Admin: 10/19/18 10:51 Dose: 100 mls/hr Insulin Aspart (Novolog Vial Sliding Scale -) 1 vial SQ Q4HPO [facility]; Protocol Last Admin: 10/19/18 10:47 Dose: 4 units Midazolam HCl (Versed -) 2 mg IVPUSH Q2H PRN PRN Reason: AGITATION Last Admin: 10/15/18 16:26 Dose: 2 mg Mupirocin (Bactroban Ointment (For Decolonization) -) 1 applic NS BID [facility] Stop: 10/20/18 21:59 Last Admin: 10/19/18 09:49 Dose: 1 applic Nystatin (Mycostatin Cream -) 1 applic TP BID [facility] Last Admin: 10/19/18 09:48 Dose: 1 applic Pantoprazole Sodium (Protonix Iv) 40 mg IVPUSH DAILY [facility] Last Admin: 10/19/18 09:53 Dose: 40 mg ASSESSMENT/PLAN: Patient is a 82 y/o male with a history of afib, HTN, DM, HFrEF w ICD, and AAA who is here for GI bleed. Neuro - intubated and sedated, for airway protection upon arrival - on Versed and Propofol - patient failed weaning trial, continues to be altered possibly 2/2 to hypernatremia Cardio - hx afib, hold po meds, lopressor 5mg once for tachy - hx AAA 4.8, f/u yearly imaging - Echo 10/13 EF: 40 -45% - hold po torsemide - ICD in place Pulm - intubated with IPPV - TV 500, R 20, O2 40%, PEEP 8 - CXR; infiltrates, pneumonitis vs aspiration pneumonia - f/u CXR - Chest CT: bilateral lower lobe consolidation/atelectasis - continue weaning trial GI - Upper GI bleed vs vomiting epistaxis - received 5 units PRBC - EGD: two shallow ulcers found and clotting in the fundus - protonix 40 daily - no further evidence of GI bleed Neprho - BUN/Cr going down - baseline Cr 1, hold diuresis - hypernatremic, water deficit ~ 10 L - D5 W @ 125, free water flushes 300 ml Q4 Heme - transfusion threshold 8 - received 5 units - hgb remaining stable ID - possible PNA vs Pnuemonitis - continue Unasyn day 5 - febrile overnight, f/u blood cx, - Ua with 2+ LE, WBC 10, will send new ucx and change jameson Endo - SS - 36 units in 24 hours FEN - NPO, intubated - monitor NA closely - can start feeds once cleared by GI, trying to reach out to GI Dispo: try to wean tomorrow, continue to monitor Na, discuss feeds with GI Visit type - Emergency Visit Emergency Visit: No - New Patient This patient is new to me today: No - Critical Care Critical Care patient: Yes Total Critical Care Time (in minutes): 42 Critical Care Statement: The care of this patient involved high complexity decision making to prevent further life threatening deterioration of the patient 's condition and/or to evaluate & treat vital organ system(s) failure or risk of failure.
[2018-10-19] MEDS: PROPOFOL 1,000,000 MCG/100 ML VIAL IVPB SCH (11:58)
--- NOTE | 2018-10-19 12:25 | PN ---
Teaching Attending Note Name of Resident: Kamini Cooper ATTENDING PHYSICIAN STATEMENT I saw and evaluated the patient. I reviewed the resident's note and discussed the case with the resident. I agree with the resident's findings and plan as documented. SUBJECTIVE: Pt seen and examined in the ICU. Remains intubated, sedated. Dark stools reported yesterday s/p 1 unit PRBC. Febrile overnight. OBJECTIVE: Vital Signs Period Temp Pulse Resp BP Sys/Lambert Pulse Ox Last 24 Hr 98.4 F-100.9 F 88-130 18-30 94-146/53-87 98-100 Intake & Output 10/16/18 10/17/18 10/18/18 10/19/18 23:59 23:59 23:59 23:59 Intake Total 1484 2604.8 3348.8 1145 Output Total 2855 2700 3700 700 Balance -1371 -95.2 -351.2 445 Weight 139.5 kg 139.706 kg 141.004 kg 136.9 kg Gen: intubated, sedated Heart: RRR Lung: scattered rhonchi Abd: soft, nontender Ext: +dependent edema CBC, BMP 10/19/18 05:30 10/19/18 05:30 Active Medications Acetaminophen (Ofirmev Injection -) 1,000 mg IVPB Q6H PRN PRN Reason: FEVER Last Admin: 10/19/18 05:37 Dose: 1,000 mg Albuterol/Ipratropium (Duoneb -) 1 amp NEB Q4H PRN PRN Reason: SHORTNESS OF BREATH Chlorhexidine Gluconate (Hibiclens For Decolonization -) 1 applic TP HS [facility] Last Admin: 10/18/18 21:11 Dose: 1 applic Propofol (Diprivan -) 1,000,000 mcg in 100 mls @ 4.491 mls/hr IVPB TITR [facility]; Protocol Last Admin: 10/19/18 11:58 Dose: 10 mcg/kg/min, 8.981 mls/hr Ampicillin Sodium/Sulbactam (Sodium 1.5 gm/ Sodium Chloride) 100 mls @ 200 mls/ hr IVPB Q6H-IV [facility] Last Admin: 10/19/18 09:44 Dose: 200 mls/hr Dextrose (D5w -) 1,000 mls @ 125 mls/hr IV Q8H [facility] Last Admin: 10/19/18 11:59 Dose: 125 mls/hr Insulin Aspart (Novolog Vial Sliding Scale -) 1 vial SQ Q4HPO [facility]; Protocol Last Admin: 10/19/18 10:47 Dose: 4 units Midazolam HCl (Versed -) 2 mg IVPUSH Q2H PRN PRN Reason: AGITATION Last Admin: 10/15/18 16:26 Dose: 2 mg Mupirocin (Bactroban Ointment (For Decolonization) -) 1 applic NS BID [facility] Stop: 10/20/18 21:59 Last Admin: 10/19/18 09:49 Dose: 1 applic Nystatin (Mycostatin Cream -) 1 applic TP BID [facility] Last Admin: 10/19/18 09:48 Dose: 1 applic Pantoprazole Sodium (Protonix Iv) 40 mg IVPUSH DAILY [facility] Last Admin: 10/19/18 09:53 Dose: 40 mg ASSESSMENT AND PLAN: Acute Respiratory Failure GI Bleed likely Upper Acute Blood Loss Anemia LV Systolic Dysfunction s/p ICD Atrial Fibrillation r/o Pneumonia Hypernatremia Acute on Chronic Renal Failure HTN DM - panculture - continue antibiotics - monitor H/H - transfuse as needed - increase free water replacement - monitor lytes - rate control - holding anticoagulation - hold sedation to assess mental status - spontaneous breathing trials when mental status improved - enteral feeds if ok with GI - DVT/GI prophylaxis - continue ICU monitoring critical care time spent in reviewing chart, evaluating patient and formulating plan 35 min
[2018-10-19 13:55] LABS: URINE APPEARANCE CLOUDY; URINE BILIRUBIN NEGATIVE (NEGATIVE); URINE COLOR YELLOW; URINE GLUCOSE (UA) NEGATIVE (NEGATIVE); URINE KETONE NEGATIVE (NEGATIVE); URINE LEUK ESTERASE 2+ (NEGATIVE); URINE NITRITE NEGATIVE (NEGATIVE); URINE PROTEIN NEGATIVE (NEGATIVE)
[2018-10-19 14:25] LABS: ANION GAP 4 MMOL/L (8-16); BLOOD UREA NITROGEN 70 mg/dL (7-18); CALCIUM 8.4 mg/dL (8.5-10.1); CHLORIDE 127 mmol/L (98-107); CO2 32 mmol/L (21-32); CREATININE 1.9 mg/dL (0.55-1.3); GLUCOSE,RANDOM 256 mg/dL (74-106); POTASSIUM 4.2 mmol/L (3.5-5.1)
[2018-10-19 14:26] LABS: EPI CELLS 1.5 /HPF (0-5/HPF); URINE BACTERIA 0.7 /hpf (NEGATIVE); URINE CRYSTALS URIC ACID PRESENT /hpf
[2018-10-19 14:27] LABS: URINE RBC 7.1 /hpf (0-4); URINE WBC 10.1 /hpf (0-5)
[2018-10-19 14:39] LABS: SODIUM 162 mmol/L (136-145)
--- NOTE | 2018-10-19 17:14 | PN ---
Teaching Attending Note Name of Resident: Anabela Maciel ATTENDING PHYSICIAN STATEMENT I saw and evaluated the patient. I reviewed the resident's note and discussed the case with the resident. I agree with the resident's findings and plan as documented with exceptions below. SUBJECTIVE: Patient seen and examined. Intubated and sedated. OBJECTIVE: Vital Signs Period Temp Pulse Resp BP Sys/Lambert Pulse Ox Last 24 Hr 98.1 F-100.9 F 88-130 18-30 94-146/53-81 98-98 Intake & Output 10/16/18 10/17/18 10/18/18 10/19/18 23:59 23:59 23:59 23:59 Intake Total 1484 2604.8 3348.8 1145 Output Total 2855 2700 3700 1300 Balance -1371 -95.2 -351.2 -155 Weight 307 lb 8.717 oz 308 lb 310 lb 13.76 oz 301 lb 13.005 oz General: intubated sedated Chest: poor exam, occasional rhonchi ABdomen:Soft, obese, NT Extremities: `=1+ non pitting edema HEENT: OG tube in place, clear aspirate PERRL Neuro: intubated, sedated, PERRL, facial symmetry, withdraws extr to pain, further exam limited Home Medications Medication Instructions Recorded Atorvastatin Ca [Lipitor] 10 mg PO HS 10/15/17 Carvedilol [Coreg -] 18.75 mg PO BID 10/15/17 Sitagliptin Phosphate [Januvia] 100 mg PO DAILY 10/15/17 Pantoprazole Sodium [Protonix] 40 mg PO DAILY #4 tablet. 10/20/17 Rivaroxaban [Xarelto] 15 mg PO DAILY #30 tab 11/02/17 Amiodarone HCl [Cordarone -] 400 mg PO DAILY 10/15/18 Glyburide 10 mg PO BID 10/15/18 Torsemide [Demadex -] 200 mg PO BID 10/15/18 Active Medications Acetaminophen (Ofirmev Injection -) 1,000 mg IVPB Q6H PRN PRN Reason: FEVER Last Admin: 10/19/18 05:37 Dose: 1,000 mg Albuterol/Ipratropium (Duoneb -) 1 amp NEB Q4H PRN PRN Reason: SHORTNESS OF BREATH Chlorhexidine Gluconate (Hibiclens For Decolonization -) 1 applic TP HS COUNT INCLUDES THE [facility] Last Admin: 10/18/18 21:11 Dose: 1 applic Propofol (Diprivan -) 1,000,000 mcg in 100 mls @ 4.491 mls/hr IVPB TITR USHA; Protocol Last Admin: 10/19/18 11:58 Dose: 10 mcg/kg/min, 8.981 mls/hr Ampicillin Sodium/Sulbactam (Sodium 1.5 gm/ Sodium Chloride) 100 mls @ 200 mls/ hr IVPB Q6H-IV USHA Last Admin: 10/19/18 15:52 Dose: 200 mls/hr Dextrose (D5w -) 1,000 mls @ 125 mls/hr IV Q8H COUNT INCLUDES THE [facility] Last Admin: 10/19/18 11:59 Dose: 125 mls/hr Insulin Aspart (Novolog Vial Sliding Scale -) 1 vial SQ Q4HPO COUNT INCLUDES THE [facility]; Protocol Last Admin: 10/19/18 15:57 Dose: 6 units Midazolam HCl (Versed -) 2 mg IVPUSH Q2H PRN PRN Reason: AGITATION Last Admin: 10/15/18 16:26 Dose: 2 mg Mupirocin (Bactroban Ointment (For Decolonization) -) 1 applic NS BID COUNT INCLUDES THE [facility] Stop: 10/20/18 21:59 Last Admin: 10/19/18 09:49 Dose: 1 applic Nystatin (Mycostatin Cream -) 1 applic TP BID COUNT INCLUDES THE [facility] Last Admin: 10/19/18 09:48 Dose: 1 applic Pantoprazole Sodium (Protonix Iv) 40 mg IVPUSH DAILY COUNT INCLUDES THE [facility] Last Admin: 10/19/18 09:53 Dose: 40 mg Laboratory Results - last 24 hr 10/15/18 10/18/18 10/18/18 10:11 17:20 18:03 WBC 17.9 H RBC 2.74 L Hgb 8.2 L Hct 25.3 L D MCV 92.3 MCH 30.1 MCHC 32.6 RDW 16.6 H Plt Count 150 MPV 9.3 Absolute Neuts (auto) 14.2 H Neutrophils % 79.3 Lymphocytes % 8.3 D Monocytes % 12.1 H Eosinophils % 0.1 Basophils % 0.2 Nucleated RBC % 1 H Sodium Potassium Chloride Carbon Dioxide Anion Gap BUN Creatinine Creat Clearance w eGFR POC Glucometer 278 Random Glucose Serum Osmolality Calcium Phosphorus Magnesium Total Bilirubin AST ALT Alkaline Phosphatase Total Protein Albumin Urine Color Urine Appearance Urine pH Ur Specific [place] Urine Protein Urine Glucose (UA) Urine Ketones Urine Blood Urine Nitrite Urine Bilirubin Urine Urobilinogen Ur Leukocyte Esterase Urine WBC (Auto) Urine RBC (Auto) Urine Casts (Auto) U Epithel Cells (Auto) Urine Crystals (Auto) Urine Bacteria (Auto) Urine Osmolality Ur Random Sodium Ur Random Potassium Ur Random Chloride Blood Type A POSITIVE Antibody Screen Negative Crossmatch See Detail 10/18/18 10/19/18 10/19/18 21:14 02:17 05:30 WBC 17.3 H RBC 2.77 L Hgb 8.3 L Hct 25.5 L MCV 92.2 MCH 29.8 MCHC 32.4 RDW 16.8 H Plt Count 143 MPV 9.6 Absolute Neuts (auto) 12.9 H Neutrophils % 74.3 Lymphocytes % 11.8 D Monocytes % 13.4 H Eosinophils % 0.3 D Basophils % 0.2 Nucleated RBC % 1 H Sodium Potassium Chloride Carbon Dioxide Anion Gap BUN Creatinine Creat Clearance w eGFR POC Glucometer 248 229 Random Glucose Serum Osmolality Calcium Phosphorus Magnesium Total Bilirubin AST ALT Alkaline Phosphatase Total Protein Albumin Urine Color Urine Appearance Urine pH Ur Specific [place] Urine Protein Urine Glucose (UA) Urine Ketones Urine Blood Urine Nitrite Urine Bilirubin Urine Urobilinogen Ur Leukocyte Esterase Urine WBC (Auto) Urine RBC (Auto) Urine Casts (Auto) U Epithel Cells (Auto) Urine Crystals (Auto) Urine Bacteria (Auto) Urine Osmolality Ur Random Sodium Ur Random Potassium Ur Random Chloride Blood Type Antibody Screen Crossmatch 10/19/18 10/19/18 10/19/18 05:30 05:57 10:43 WBC RBC Hgb Hct MCV MCH MCHC RDW Plt Count MPV Absolute Neuts (auto) Neutrophils % Lymphocytes % Monocytes % Eosinophils % Basophils % Nucleated RBC % Sodium 161 H* Potassium 3.7 Chloride 127 H Carbon Dioxide 31 Anion Gap 3 L BUN 75 H Creatinine 1.8 H Creat Clearance w eGFR 36.49 POC Glucometer 210 224 Random Glucose 237 H Serum Osmolality 365 H Calcium 8.3 L Phosphorus 2.6 Magnesium 3.3 H Total Bilirubin 2.1 H AST 17 ALT 16 Alkaline Phosphatase 110 Total Protein 5.5 L Albumin 2.4 L Urine Color Urine Appearance Urine pH Ur Specific [place] Urine Protein Urine Glucose (UA) Urine Ketones Urine Blood Urine Nitrite Urine Bilirubin Urine Urobilinogen Ur Leukocyte Esterase Urine WBC (Auto) Urine RBC (Auto) Urine Casts (Auto) U Epithel Cells (Auto) Urine Crystals (Auto) Urine Bacteria (Auto) Urine Osmolality Ur Random Sodium Ur Random Potassium Ur Random Chloride Blood Type Antibody Screen Crossmatch 10/19/18 10/19/18 10/19/18 13:00 13:00 13:00 WBC RBC Hgb Hct MCV MCH MCHC RDW Plt Count MPV Absolute Neuts (auto) Neutrophils % Lymphocytes % Monocytes % Eosinophils % Basophils % Nucleated RBC % Sodium Potassium Chloride Carbon Dioxide Anion Gap BUN Creatinine Creat Clearance w eGFR POC Glucometer Random Glucose Serum Osmolality Calcium Phosphorus Magnesium Total Bilirubin AST ALT Alkaline Phosphatase Total Protein Albumin Urine Color Yellow Urine Appearance Cloudy Urine pH 5.0 Ur Specific [place] 1.018 Urine Protein Negative Urine Glucose (UA) Negative Urine Ketones Negative Urine Blood Trace Urine Nitrite Negative Urine Bilirubin Negative Urine Urobilinogen 1.0 Ur Leukocyte Esterase 2+ H Urine WBC (Auto) 10.1 Urine RBC (Auto) 7.1 Urine Casts (Auto) 6.00 U Epithel Cells (Auto) 1.5 Urine Crystals (Auto) Uric acid present Urine Bacteria (Auto) 0.7 Urine Osmolality 526 Ur Random Sodium < 18 L Ur Random Potassium 20.2 L Ur Random Chloride < 11 L Blood Type Antibody Screen Crossmatch 10/19/18 10/19/18 13:40 15:56 WBC RBC Hgb Hct MCV MCH MCHC RDW Plt Count MPV Absolute Neuts (auto) Neutrophils % Lymphocytes % Monocytes % Eosinophils % Basophils % Nucleated RBC % Sodium 162 H* Potassium 4.2 Chloride 127 H Carbon Dioxide 32 Anion Gap 4 L BUN 70 H Creatinine 1.9 H Creat Clearance w eGFR 34.28 POC Glucometer 262 Random Glucose 256 H Serum Osmolality Calcium 8.4 L Phosphorus Magnesium Total Bilirubin AST ALT Alkaline Phosphatase Total Protein Albumin Urine Color Urine Appearance Urine pH Ur Specific [place] Urine Protein Urine Glucose (UA) Urine Ketones Urine Blood Urine Nitrite Urine Bilirubin Urine Urobilinogen Ur Leukocyte Esterase Urine WBC (Auto) Urine RBC (Auto) Urine Casts (Auto) U Epithel Cells (Auto) Urine Crystals (Auto) Urine Bacteria (Auto) Urine Osmolality Ur Random Sodium Ur Random Potassium Ur Random Chloride Blood Type Antibody Screen Crossmatch Microbiology 10/15/18 10:00 Blood - Peripheral Venous Blood Culture - Preliminary NO GROWTH OBTAINED AFTER 96 HOURS, INCUBATION TO CONTINUE FOR 1 DAYS. 10/15/18 10:30 Blood - Peripheral Venous Blood Culture - Preliminary NO GROWTH OBTAINED AFTER 96 HOURS, INCUBATION TO CONTINUE FOR 1 DAYS. 10/15/18 10:40 Urine - Urine - Catheterized Urine Culture - Final NO GROWTH OBTAINED CXR image and results reviewed\ Telemetry Afib 100s-130s ASSESSMENT AND PLAN: 82 yom with PMHx of chronic systolic HF, Paroxysmal VT s/p ICD, afib on xarelto , epistaxis, Ascending aortic aneurysm (5 cm), CONSTANTINO, HLD, admitted with coffee ground emesis and AMS. -Acute upper GI bleed s/p EGD with antral non bleeding Ulcer/Small clot in fundus without underlyling lesion/submucosal nodule -Acute blood loss anemia s/p 5 units PRBC -AMS, encephalopathy from above, suspect associated with electrolytes abnormalitis -Severe hypernatremia (Free water deficit around 10L) -Suspect aspiration PNA -Atrial fibrillation on xarelto -Chronic systolic Heart failure -CONSTANTINO (refused CPAP) -h/o paroxysmal VT s/p ICD -Ascending aortic aneurysm (5.0 cm) -HLD -NIDDM Plan: Failed weaning trial. Vent support per ICU. h/h stable. Continue to hold xarelto. IV Protonix, GI input noted, REnal consulted. Change IVF to D5w at 125 ml/hr, add free water via NGT Lasix prn if volume overload. Resume coreg/amiodarone as able. Diltiazem IV Prn for tachycardia. ISS Will need to address tube feeds if fail to extubate. DVTPPX with SCDs dispo ICU level of care Plan discussed with Nursing, care co=ordinated with ICU team/Nephrology TOtal critical care time spent 36 min.
--- NOTE | 2018-10-19 18:48 | PN ---
Physical Exam: SUBJECTIVE: Patient seen and examined, sedated. OBJECTIVE: Vital Signs Period Temp Pulse Resp BP Sys/Lambert Pulse Ox Last 24 Hr 98.1 F-100.9 F 96-130 18-30 106-146/53-81 98-98 GENERAL: The patient is sedated, on mechanical ventilation. HEAD: Normal with no signs of trauma. EYES: PERRL, conjunctiva clear. ENT: Oropharynx clear without exudates, moist mucous membranes. NECK: Trachea midline, full range of motion, supple. LUNGS: Clear to auscultation bilaterally, no wheezes, no crackles. HEART: Irregular rate and rhythm, S1, S2 without murmur, rub or gallop. ABDOMEN: Obese, Soft, nontender, nondistended, normoactive bowel sounds. EXTREMITIES: 2+ pulses, warm, 3+ edema in upper and lower extremities. NEUROLOGICAL: sedated SKIN: Warm, dry, no rashes. Laboratory Results - last 24 hr 10/15/18 10/18/18 10/19/18 10:11 21:14 02:17 WBC RBC Hgb Hct MCV MCH MCHC RDW Plt Count MPV Absolute Neuts (auto) Neutrophils % Lymphocytes % Monocytes % Eosinophils % Basophils % Nucleated RBC % Sodium Potassium Chloride Carbon Dioxide Anion Gap BUN Creatinine Creat Clearance w eGFR POC Glucometer 248 229 Random Glucose Serum Osmolality Calcium Phosphorus Magnesium Total Bilirubin AST ALT Alkaline Phosphatase Total Protein Albumin Urine Color Urine Appearance Urine pH Ur Specific [place] Urine Protein Urine Glucose (UA) Urine Ketones Urine Blood Urine Nitrite Urine Bilirubin Urine Urobilinogen Ur Leukocyte Esterase Urine WBC (Auto) Urine RBC (Auto) Urine Casts (Auto) U Epithel Cells (Auto) Urine Crystals (Auto) Urine Bacteria (Auto) Urine Osmolality Ur Random Sodium Ur Random Potassium Ur Random Chloride Blood Type A POSITIVE Antibody Screen Negative Crossmatch See Detail 10/19/18 10/19/18 10/19/18 05:30 05:30 05:57 WBC 17.3 H RBC 2.77 L Hgb 8.3 L Hct 25.5 L MCV 92.2 MCH 29.8 MCHC 32.4 RDW 16.8 H Plt Count 143 MPV 9.6 Absolute Neuts (auto) 12.9 H Neutrophils % 74.3 Lymphocytes % 11.8 D Monocytes % 13.4 H Eosinophils % 0.3 D Basophils % 0.2 Nucleated RBC % 1 H Sodium 161 H* Potassium 3.7 Chloride 127 H Carbon Dioxide 31 Anion Gap 3 L BUN 75 H Creatinine 1.8 H Creat Clearance w eGFR 36.49 POC Glucometer 210 Random Glucose 237 H Serum Osmolality 365 H Calcium 8.3 L Phosphorus 2.6 Magnesium 3.3 H Total Bilirubin 2.1 H AST 17 ALT 16 Alkaline Phosphatase 110 Total Protein 5.5 L Albumin 2.4 L Urine Color Urine Appearance Urine pH Ur Specific [place] Urine Protein Urine Glucose (UA) Urine Ketones Urine Blood Urine Nitrite Urine Bilirubin Urine Urobilinogen Ur Leukocyte Esterase Urine WBC (Auto) Urine RBC (Auto) Urine Casts (Auto) U Epithel Cells (Auto) Urine Crystals (Auto) Urine Bacteria (Auto) Urine Osmolality Ur Random Sodium Ur Random Potassium Ur Random Chloride Blood Type Antibody Screen Crossmatch 10/19/18 10/19/18 10/19/18 10:43 13:00 13:00 WBC RBC Hgb Hct MCV MCH MCHC RDW Plt Count MPV Absolute Neuts (auto) Neutrophils % Lymphocytes % Monocytes % Eosinophils % Basophils % Nucleated RBC % Sodium Potassium Chloride Carbon Dioxide Anion Gap BUN Creatinine Creat Clearance w eGFR POC Glucometer 224 Random Glucose Serum Osmolality Calcium Phosphorus Magnesium Total Bilirubin AST ALT Alkaline Phosphatase Total Protein Albumin Urine Color Urine Appearance Urine pH Ur Specific [place] Urine Protein Urine Glucose (UA) Urine Ketones Urine Blood Urine Nitrite Urine Bilirubin Urine Urobilinogen Ur Leukocyte Esterase Urine WBC (Auto) Urine RBC (Auto) Urine Casts (Auto) U Epithel Cells (Auto) Urine Crystals (Auto) Urine Bacteria (Auto) Urine Osmolality 526 Ur Random Sodium < 18 L Ur Random Potassium 20.2 L Ur Random Chloride < 11 L Blood Type Antibody Screen Crossmatch 10/19/18 10/19/18 10/19/18 13:00 13:40 15:56 WBC RBC Hgb Hct MCV MCH MCHC RDW Plt Count MPV Absolute Neuts (auto) Neutrophils % Lymphocytes % Monocytes % Eosinophils % Basophils % Nucleated RBC % Sodium 162 H* Potassium 4.2 Chloride 127 H Carbon Dioxide 32 Anion Gap 4 L BUN 70 H Creatinine 1.9 H Creat Clearance w eGFR 34.28 POC Glucometer 262 Random Glucose 256 H Serum Osmolality Calcium 8.4 L Phosphorus Magnesium Total Bilirubin AST ALT Alkaline Phosphatase Total Protein Albumin Urine Color Yellow Urine Appearance Cloudy Urine pH 5.0 Ur Specific [place] 1.018 Urine Protein Negative Urine Glucose (UA) Negative Urine Ketones Negative Urine Blood Trace Urine Nitrite Negative Urine Bilirubin Negative Urine Urobilinogen 1.0 Ur Leukocyte Esterase 2+ H Urine WBC (Auto) 10.1 Urine RBC (Auto) 7.1 Urine Casts (Auto) 6.00 U Epithel Cells (Auto) 1.5 Urine Crystals (Auto) Uric acid present Urine Bacteria (Auto) 0.7 Urine Osmolality Ur Random Sodium Ur Random Potassium Ur Random Chloride Blood Type Antibody Screen Crossmatch Active Medications Generic Name Dose Route Start Last Admin Trade Name Freq PRN Reason Stop Dose Admin Acetaminophen 1,000 mg 10/16/18 23:47 10/19/18 05:37 Ofirmev Injection - IVPB 1,000 mg Q6H PRN Administration FEVER Albuterol/Ipratropium 1 amp 10/16/18 07:05 Duoneb - NEB Q4H PRN SHORTNESS OF BREATH Chlorhexidine Gluconate 1 applic 10/15/18 22:00 10/18/18 21:11 Hibiclens For Decolonization - TP 1 applic HS USHA Administration Propofol 1,000,000 mcg in 100 mls @ 4.491 mls/hr 10/15/18 12:00 10/19/18 11: 58 Diprivan - IVPB 10 mcg/kg/min TITR USHA 8.981 mls/hr Administration Protocol 5 MCG/KG/MIN Ampicillin Sodium/Sulbactam 100 mls @ 200 mls/hr 10/15/18 22:15 10/19/18 15: 52 Sodium 1.5 gm/ Sodium Chloride IVPB 200 mls/hr Q6H-IV USHA Administration Dextrose 1,000 mls @ 125 mls/hr 10/19/18 11:54 10/19/18 11:59 D5w - IV 125 mls/hr Q8H USHA Administration Insulin Aspart 1 vial 10/17/18 14:00 10/19/18 15:57 Novolog Vial Sliding Scale - SQ 6 units Q4HPO USHA Administration Protocol Mupirocin 1 applic 10/15/18 22:00 10/19/18 09:49 Bactroban Ointment (For Decolonization) - NS 10/20/18 21:59 1 applic BID USHA Administration Nystatin 1 applic 10/15/18 22:00 10/19/18 09:48 Mycostatin Cream - TP 1 applic BID USHA Administration Pantoprazole Sodium 40 mg 10/18/18 10:00 10/19/18 09:53 Protonix Iv IVPUSH 40 mg DAILY USHA Administration ASSESSMENT/PLAN: The patient is 82 year old male patient with hx of atrial fibrillation, HTN, DM , DL, HFrEF s/p single lead ICD (medtronic) presented AMS after his son found him vomiting blood, and intubated in ED, admitted to ICU for futher management. Upper GI bleed: -no history of GI bleeding, coffee ground emesis -intubated, sedated -monitored H/H, transfused 5 units of PRBC -upper endoscopy: positive 3mm clean based ulcer in proximal antrum and 8mm submucosal nodule in antrum -will monitor for bleeding -PPI: 40 mg qd Acute respiratory failure: -intubated on AC -CT chest: bilateral lower lobe consolidation/atelectasis, CXR reviewed -will follow up Pulm recommendations -cont Duoneb q4h PRN -possible aspiration pneumonia Atrial Fibrillation: - holding xarelto due to bleeding - cont diltiazem IV PRN for tachycardia -cardiac monitoring Chronic systolic HF -last ECHO 09/2017, with EF 40-45% -strict I&O -continue to monitor volume status, hold diuretics Hypernatremia: -f/u Nephro recs, D5W at 125, added free water -monitor Ascending aorta aneurysm: - 4.[address], arch 4.2 cm, no dissection HLD -hold statins DM -ISS ACHS -BGM ACHS -HgA1c 6.4% F/E/N: LR/Na/NPO Disposition: ICU monitoring Problem List - Problems (1) Abnormal liver function tests Code(s): R94.5 - ABNORMAL RESULTS OF LIVER FUNCTION STUDIES (2) Diabetic neuropathy Code(s): E11.40 - TYPE 2 DIABETES MELLITUS WITH DIABETIC NEUROPATHY, UNSP (3) Hypothyroidism Code(s): E03.9 - HYPOTHYROIDISM, UNSPECIFIED (4) Morbid exogenous obesity Code(s): E66.01 - MORBID (SEVERE) OBESITY DUE TO EXCESS CALORIES (5) Renal insufficiency Code(s): N28.9 - DISORDER OF KIDNEY AND URETER, UNSPECIFIED (6) Sleep apnea Code(s): G47.30 - SLEEP APNEA, UNSPECIFIED (7) Upper GI bleed Code(s): K92.2 - GASTROINTESTINAL HEMORRHAGE, UNSPECIFIED (8) Syncope Code(s): R55 - SYNCOPE AND COLLAPSE (9) Volume overload Code(s): E87.70 - FLUID OVERLOAD, UNSPECIFIED (10) Atrial fibrillation Code(s): I48.91 - UNSPECIFIED ATRIAL FIBRILLATION (11) CHF (congestive heart failure) Code(s): I50.9 - HEART FAILURE, UNSPECIFIED (12) Diabetes mellitus Code(s): E11.9 - TYPE 2 DIABETES MELLITUS WITHOUT COMPLICATIONS Qualifiers: Diabetes mellitus type: type 2 (13) Thoracic aortic aneurysm Code(s): I71.2 - THORACIC AORTIC ANEURYSM, WITHOUT RUPTURE (14) Venous stasis Code(s): I87.8 - OTHER SPECIFIED DISORDERS OF VEINS Visit type - Emergency Visit Emergency Visit: Yes ED Registration Date: 10/15/18 Care time: The patient presented to the Emergency Department on the above date and was hospitalized for further evaluation of their emergent condition. - New Patient This patient is new to me today: No - Critical Care Critical Care patient: Yes Total Critical Care Time (in minutes): 40 Critical Care Statement: The care of this patient involved high complexity decision making to prevent further life threatening deterioration of the patient 's condition and/or to evaluate & treat vital organ system(s) failure or risk of failure. - Discharge Referral Referred to [facility] Med [facility] No
[2018-10-19] MEDS: CHLORHEXIDINE GLUCONATE 4% CLEANSER FOR DECOLONIZATION TP SCH (21:22)
[2018-10-19 21:35] LABS: ANION GAP 4 MMOL/L (8-16); BLOOD UREA NITROGEN 61 mg/dL (7-18); CALCIUM 8.3 mg/dL (8.5-10.1); CHLORIDE 126 mmol/L (98-107); CO2 31 mmol/L (21-32); CREATININE 1.7 mg/dL (0.55-1.3); GLUCOSE,RANDOM 276 mg/dL (74-106); POTASSIUM 4.1 mmol/L (3.5-5.1)
[2018-10-19 22:27] LABS: SODIUM 161 mmol/L (136-145)
[2018-10-20] MEDS: INSULIN SLIDING SCALE (NOVOLOG) 1 VIAL SQ SCH ×6 (01:38→21:10)
[2018-10-20] MEDS: AMPICILLIN NA/SULBACTAM NA 1.5 GM in SODIUM CHLORIDE 100 ML IVPB SCH ×4 (03:35→21:05)
[2018-10-20] MEDS ORDERED: SODIUM CHLORIDE 100 ML IVPB ONE ×4 (04:34→21:04)
[2018-10-20] MEDS ORDERED: AMPICILLIN NA/SULBACTAM NA 1.5 GM VIAL ONE ×4 (04:34→21:04)
[2018-10-20] MEDS: DEXTROSE 5%-WATER - 1,000 ML IV SCH ×3 (04:45→17:00)
[2018-10-20 06:28] LABS: HEMATOCRIT 23.8 % (35.4-49); HEMOGLOBIN 7.7 GM/dL (11.7-16.9); MCH 30.4 pg (25.7-33.7); MCHC 32.3 g/dl (32.0-35.9); MEAN PLT VOLUME 9.5 fl (7.5-11.1); PLATELET COUNT 104 K/MM3 (134-434); RBC 2.53 M/mm3 (4.00-5.60); RDW 17.2 % (11.9-15.9); WHITE BLOOD COUNT 14.1 K/mm3 (4.0-10.0)
[2018-10-20 06:53] LABS: ALBUMIN 2.3 g/dl (3.4-5.0); ANION GAP 2 MMOL/L (8-16); BILIRUBIN,TOTAL 1.5 mg/dL (0.2-1); BLOOD UREA NITROGEN 49 mg/dL (7-18); CHLORIDE 126 mmol/L (98-107); CO2 32 mmol/L (21-32); CREATININE 1.6 mg/dL (0.55-1.3); GLUCOSE,RANDOM 223 mg/dL (74-106); MAGNESIUM 3.1 mg/dL (1.8-2.4); PHOSPHOROUS 2.7 mg/dL (2.5-4.9); POTASSIUM 3.7 mmol/L (3.5-5.1); SGOT/AST 20 U/L (15-37); SODIUM 160 mmol/L (136-145); TOT PROT 5.2 g/dl (6.4-8.2)
[2018-10-20 06:54] LABS: ALK PHOS 108 U/L (45-117); SGPT/ALT 16 U/L (13-61)
--- NOTE | 2018-10-20 08:26 | PN ---
Physical Exam: SUBJECTIVE: Patient seen and examined at bedside. Intubated and sedated. No events overnight. OBJECTIVE: Vital Signs Period Temp Pulse Resp BP Sys/Lambert Pulse Ox Last 24 Hr 98.1 F-100.5 F 84-130 16-30 106-146/55-74 95-98 GENERAL: The patient is intubated and sedated. HEAD: Normal with no signs of trauma LUNGS: Breath sounds equal, crackles heard at the bases b/l, no accessory muscle use. HEART: Regular rate and rhythm, S1, S2 without murmur, rub or gallop. ABDOMEN: Soft, nontender, nondistended, normoactive bowel sounds, no guarding, no rebound, no hepatosplenomegaly, no masses. EXTREMITIES: 2+ pulses, warm, well-perfused, no edema. NEUROLOGICAL: unable to obtain as patient sedated. SKIN: Warm, dry, normal turgor, no rashes or lesions noted Laboratory Results - last 24 hr 10/19/18 10/19/18 10/19/18 05:30 10:43 13:00 WBC RBC Hgb Hct MCV MCH MCHC RDW Plt Count MPV Sodium 161 H* Potassium 3.7 Chloride 127 H Carbon Dioxide 31 Anion Gap 3 L BUN 75 H Creatinine 1.8 H Creat Clearance w eGFR 36.49 POC Glucometer 224 Random Glucose 237 H Serum Osmolality 365 H Calcium 8.3 L Phosphorus 2.6 Magnesium 3.3 H Total Bilirubin 2.1 H AST 17 ALT 16 Alkaline Phosphatase 110 Total Protein 5.5 L Albumin 2.4 L Urine Color Urine Appearance Urine pH Ur Specific [place] Urine Protein Urine Glucose (UA) Urine Ketones Urine Blood Urine Nitrite Urine Bilirubin Urine Urobilinogen Ur Leukocyte Esterase Urine WBC (Auto) Urine RBC (Auto) Urine Casts (Auto) U Epithel Cells (Auto) Urine Crystals (Auto) Urine Bacteria (Auto) Urine Osmolality Ur Random Sodium < 18 L Ur Random Potassium 20.2 L Ur Random Chloride < 11 L 10/19/18 10/19/18 10/19/18 13:00 13:00 13:40 WBC RBC Hgb Hct MCV MCH MCHC RDW Plt Count MPV Sodium 162 H* Potassium 4.2 Chloride 127 H Carbon Dioxide 32 Anion Gap 4 L BUN 70 H Creatinine 1.9 H Creat Clearance w eGFR 34.28 POC Glucometer Random Glucose 256 H Serum Osmolality Calcium 8.4 L Phosphorus Magnesium Total Bilirubin AST ALT Alkaline Phosphatase Total Protein Albumin Urine Color Yellow Urine Appearance Cloudy Urine pH 5.0 Ur Specific [place] 1.018 Urine Protein Negative Urine Glucose (UA) Negative Urine Ketones Negative Urine Blood Trace Urine Nitrite Negative Urine Bilirubin Negative Urine Urobilinogen 1.0 Ur Leukocyte Esterase 2+ H Urine WBC (Auto) 10.1 Urine RBC (Auto) 7.1 Urine Casts (Auto) 6.00 U Epithel Cells (Auto) 1.5 Urine Crystals (Auto) Uric acid present Urine Bacteria (Auto) 0.7 Urine Osmolality 526 Ur Random Sodium Ur Random Potassium Ur Random Chloride 10/19/18 10/19/18 10/19/18 15:56 19:30 20:50 WBC RBC Hgb Hct MCV MCH MCHC RDW Plt Count MPV Sodium 161 H* Potassium 4.1 Chloride 126 H Carbon Dioxide 31 Anion Gap 4 L BUN 61 H Creatinine 1.7 H Creat Clearance w eGFR 38.97 POC Glucometer 262 257 Random Glucose 276 H Serum Osmolality Calcium 8.3 L Phosphorus Magnesium Total Bilirubin AST ALT Alkaline Phosphatase Total Protein Albumin Urine Color Urine Appearance Urine pH Ur Specific [place] Urine Protein Urine Glucose (UA) Urine Ketones Urine Blood Urine Nitrite Urine Bilirubin Urine Urobilinogen Ur Leukocyte Esterase Urine WBC (Auto) Urine RBC (Auto) Urine Casts (Auto) U Epithel Cells (Auto) Urine Crystals (Auto) Urine Bacteria (Auto) Urine Osmolality Ur Random Sodium Ur Random Potassium Ur Random Chloride 10/19/18 10/20/18 10/20/18 22:38 01:37 05:30 WBC 14.1 H RBC 2.53 L Hgb 7.7 L Hct 23.8 L MCV 94.0 MCH 30.4 MCHC 32.3 RDW 17.2 H Plt Count 104 L D MPV 9.5 Sodium Potassium Chloride Carbon Dioxide Anion Gap BUN Creatinine Creat Clearance w eGFR POC Glucometer 237 214 Random Glucose Serum Osmolality Calcium Phosphorus Magnesium Total Bilirubin AST ALT Alkaline Phosphatase Total Protein Albumin Urine Color Urine Appearance Urine pH Ur Specific [place] Urine Protein Urine Glucose (UA) Urine Ketones Urine Blood Urine Nitrite Urine Bilirubin Urine Urobilinogen Ur Leukocyte Esterase Urine WBC (Auto) Urine RBC (Auto) Urine Casts (Auto) U Epithel Cells (Auto) Urine Crystals (Auto) Urine Bacteria (Auto) Urine Osmolality Ur Random Sodium Ur Random Potassium Ur Random Chloride 10/20/18 10/20/18 05:30 06:21 WBC RBC Hgb Hct MCV MCH MCHC RDW Plt Count MPV Sodium 160 H Potassium 3.7 Chloride 126 H Carbon Dioxide 32 Anion Gap 2 L BUN 49 H Creatinine 1.6 H Creat Clearance w eGFR 41.80 POC Glucometer 208 Random Glucose 223 H Serum Osmolality Calcium 8.0 L Phosphorus 2.7 Magnesium 3.1 H Total Bilirubin 1.5 H AST 20 ALT 16 Alkaline Phosphatase 108 Total Protein 5.2 L Albumin 2.3 L Urine Color Urine Appearance Urine pH Ur Specific [place] Urine Protein Urine Glucose (UA) Urine Ketones Urine Blood Urine Nitrite Urine Bilirubin Urine Urobilinogen Ur Leukocyte Esterase Urine WBC (Auto) Urine RBC (Auto) Urine Casts (Auto) U Epithel Cells (Auto) Urine Crystals (Auto) Urine Bacteria (Auto) Urine Osmolality Ur Random Sodium Ur Random Potassium Ur Random Chloride Active Medications Generic Name Dose Route Start Last Admin Trade Name Freq PRN Reason Stop Dose Admin Acetaminophen 1,000 mg 10/16/18 23:47 10/19/18 23:08 Ofirmev Injection - IVPB 1,000 mg Q6H PRN Administration FEVER Albuterol/Ipratropium 1 amp 10/16/18 07:05 Duoneb - NEB Q4H PRN SHORTNESS OF BREATH Chlorhexidine Gluconate 1 applic 10/15/18 22:00 10/19/18 21:22 Hibiclens For Decolonization - TP 1 applic HS USHA Administration Propofol 1,000,000 mcg in 100 mls @ 4.491 mls/hr 10/15/18 12:00 10/20/18 04: 44 Diprivan - IVPB 10 mcg/kg/min TITR USHA 8.981 mls/hr Titration Protocol 5 MCG/KG/MIN Ampicillin Sodium/Sulbactam 100 mls @ 200 mls/hr 10/15/18 22:15 10/20/18 03: 35 Sodium 1.5 gm/ Sodium Chloride IVPB 200 mls/hr Q6H-IV USHA Administration Dextrose 1,000 mls @ 125 mls/hr 10/19/18 11:54 10/20/18 04:45 D5w - IV 125 mls/hr Q8H USHA Administration Insulin Aspart 1 vial 10/17/18 14:00 10/20/18 06:22 Novolog Vial Sliding Scale - SQ 4 units Q4HPO USHA Administration Protocol Mupirocin 1 applic 10/15/18 22:00 10/19/18 21:22 Bactroban Ointment (For Decolonization) - NS 10/20/18 21:59 1 applic BID USHA Administration Nystatin 1 applic 10/15/18 22:00 10/19/18 21:22 Mycostatin Cream - TP 1 applic BID USHA Administration Pantoprazole Sodium 40 mg 10/18/18 10:00 10/19/18 09:53 Protonix Iv IVPUSH 40 mg DAILY USHA Administration ASSESSMENT/PLAN: Patient is a 82 y/o male with a history of afib, HTN, DM, HFrEF w ICD, and AAA who is here for GI bleed. Neuro - intubated and sedated, for airway protection upon arrival - on Propofol gtt - Patient failed rpt weaning trial today as he continues to be solumnent off sedation - will c/w daily weaning trials - continued AMS possibly 2/2 hypernatremia Cardio - hx afib, holding po meds, currently rate controlled off meds. Can give 5mg lopressor for tachycardia - hx AAA 4.8, f/u yearly imaging - Echo 10/13 EF: 40 -45% - hold po torsemide - ICD in place Pulm - intubated - TV 500, R 20, O2 40%, PEEP 8 - CXR; infiltrates, pneumonitis vs aspiration pneumonia - f/u CXR - Chest CT: bilateral lower lobe consolidation/atelectasis - continue daily weaning trials GI - Upper GI bleed resolved - received 5 units PRBC this admission - EGD: two shallow ulcers found and clotting in the fundus - protonix 40 daily - no further evidence of GI bleed - can begin feeds via OGT Nephro - BUN/Cr continues to trend down - baseline Cr 1, holding diuresis - hypernatremic, water deficit ~ 10 L - D5 W @ 125 decreased to 75, free water flushes 300 ml Q4 - nephrology onboard Heme - transfusion threshold 8 - received 5 units - hgb remaining stable ID - possible PNA vs Pnuemonitis - continue Unasyn day 6 - febrile overnight, f/u blood cx, - Ua with 2+ LE, WBC 10, will send new ucx and change jameson Endo - SS - 36 units in 24 hours - will resume long acting insulin once feeds started FEN - NPO, intubated - monitor NA closely - cleared for feeds; will start as per dietary suggestion. Dispo: -admit ICU -daily weaning trials Visit type - Emergency Visit Emergency Visit: Yes ED Registration Date: 10/15/18 Care time: The patient presented to the Emergency Department on the above date and was hospitalized for further evaluation of their emergent condition. - New Patient This patient is new to me today: Yes Date on this admission: 10/20/18 - Critical Care Critical Care patient: Yes Total Critical Care Time (in minutes): 40 Critical Care Statement: The care of this patient involved high complexity decision making to prevent further life threatening deterioration of the patient 's condition and/or to evaluate & treat vital organ system(s) failure or risk of failure. - Discharge Referral Referred to [facility] Yes
[2018-10-20] MEDS: NYSTATIN 100,000 UNIT/GM TOPICAL CREAM 15 GM TUBE TP SCH ×2 (09:37→21:06)
[2018-10-20] MEDS: PANTOPRAZOLE SODIUM 40 MG VIAL IVPUSH SCH (09:37)
[2018-10-20] MEDS: MUPIROCIN 2% TOPICAL OINTMENT FOR DECOLONIZATION NS SCH (09:38)
[2018-10-20] MEDS ORDERED: DEXTROSE 5%-WATER 100 ML MINI BAG IVPB SCH (10:00)
--- NOTE | 2018-10-20 11:47 | PN ---
Teaching Attending Note Name of Resident: Brendan Herr ATTENDING PHYSICIAN STATEMENT I saw and evaluated the patient. I reviewed the resident's note and discussed the case with the resident. I agree with the resident's findings and plan as documented. SUBJECTIVE: Patient seen and examined in the ICU. Intubated and sedated on AC Mode of vent. Sedation was stopped about 1 hour ago. No pressors. No occult bleeding. Intake & Output 10/17/18 10/18/18 10/19/18 10/20/18 23:59 23:59 23:59 23:59 Intake Total 2604.8 3348.8 1861.8 1134.5 Output Total 2700 3700 2100 600 Balance -95.2 -351.2 -238.2 534.5 Weight 308 lb 310 lb 13.76 oz 301 lb 13.005 oz 303 lb 5.697 oz Last Vital Signs Temp Pulse Resp BP Pulse Ox 98.8 F 93 H 18 115/57 L 95 10/20/18 10:00 10/20/18 10:00 10/20/18 10:36 10/20/18 10:00 10/20/18 08:33 Active Medications Acetaminophen (Ofirmev Injection -) 1,000 mg IVPB Q6H PRN PRN Reason: FEVER Last Admin: 10/19/18 23:08 Dose: 1,000 mg Albuterol/Ipratropium (Duoneb -) 1 amp NEB Q4H PRN PRN Reason: SHORTNESS OF BREATH Chlorhexidine Gluconate (Hibiclens For Decolonization -) 1 applic TP HS USHA Last Admin: 10/19/18 21:22 Dose: 1 applic Propofol (Diprivan -) 1,000,000 mcg in 100 mls @ 4.491 mls/hr IVPB TITR USHA; Protocol Last Titration: 10/20/18 04:44 Dose: 10 mcg/kg/min, 8.981 mls/hr Ampicillin Sodium/Sulbactam (Sodium 1.5 gm/ Sodium Chloride) 100 mls @ 200 mls/ hr IVPB Q6H-IV USHA Last Admin: 10/20/18 09:35 Dose: 200 mls/hr Dextrose (D5w -) 1,000 mls @ 125 mls/hr IV Q8H USHA Last Admin: 10/20/18 04:45 Dose: 125 mls/hr Insulin Aspart (Novolog Vial Sliding Scale -) 1 vial SQ Q4HPO [facility]; Protocol Last Admin: 10/20/18 10:45 Dose: 4 units Mupirocin (Bactroban Ointment (For Decolonization) -) 1 applic NS BID [facility] Stop: 10/20/18 21:59 Last Admin: 10/20/18 09:38 Dose: 1 applic Nystatin (Mycostatin Cream -) 1 applic TP BID [facility] Last Admin: 10/20/18 09:37 Dose: 1 applic Pantoprazole Sodium (Protonix Iv) 40 mg IVPUSH DAILY [facility] Last Admin: 10/20/18 09:37 Dose: 40 mg Gen; Intubated sedated HEENT: orally intubated PULM: diminished bases, no wheezes CV: tachy, irreg ABD: soft, +BS EXT: venous stasis, pitting and weeping LE edema NEURO: sedated Laboratory Results - last 24 hr 10/19/18 10/19/18 10/19/18 13:00 13:00 13:00 WBC RBC Hgb Hct MCV MCH MCHC RDW Plt Count MPV Sodium Potassium Chloride Carbon Dioxide Anion Gap BUN Creatinine Creat Clearance w eGFR POC Glucometer Random Glucose Calcium Phosphorus Magnesium Total Bilirubin AST ALT Alkaline Phosphatase Total Protein Albumin Urine Color Yellow Urine Appearance Cloudy Urine pH 5.0 Ur Specific [place] 1.018 Urine Protein Negative Urine Glucose (UA) Negative Urine Ketones Negative Urine Blood Trace Urine Nitrite Negative Urine Bilirubin Negative Urine Urobilinogen 1.0 Ur Leukocyte Esterase 2+ H Urine WBC (Auto) 10.1 Urine RBC (Auto) 7.1 Urine Casts (Auto) 6.00 U Epithel Cells (Auto) 1.5 Urine Crystals (Auto) Uric acid present Urine Bacteria (Auto) 0.7 Urine Osmolality 526 Ur Random Sodium < 18 L Ur Random Potassium 20.2 L Ur Random Chloride < 11 L 10/19/18 10/19/18 10/19/18 13:40 15:56 19:30 WBC RBC Hgb Hct MCV MCH MCHC RDW Plt Count MPV Sodium 162 H* Potassium 4.2 Chloride 127 H Carbon Dioxide 32 Anion Gap 4 L BUN 70 H Creatinine 1.9 H Creat Clearance w eGFR 34.28 POC Glucometer 262 257 Random Glucose 256 H Calcium 8.4 L Phosphorus Magnesium Total Bilirubin AST ALT Alkaline Phosphatase Total Protein Albumin Urine Color Urine Appearance Urine pH Ur Specific [place] Urine Protein Urine Glucose (UA) Urine Ketones Urine Blood Urine Nitrite Urine Bilirubin Urine Urobilinogen Ur Leukocyte Esterase Urine WBC (Auto) Urine RBC (Auto) Urine Casts (Auto) U Epithel Cells (Auto) Urine Crystals (Auto) Urine Bacteria (Auto) Urine Osmolality Ur Random Sodium Ur Random Potassium Ur Random Chloride 10/19/18 10/19/18 10/20/18 20:50 22:38 01:37 WBC RBC Hgb Hct MCV MCH MCHC RDW Plt Count MPV Sodium 161 H* Potassium 4.1 Chloride 126 H Carbon Dioxide 31 Anion Gap 4 L BUN 61 H Creatinine 1.7 H Creat Clearance w eGFR 38.97 POC Glucometer 237 214 Random Glucose 276 H Calcium 8.3 L Phosphorus Magnesium Total Bilirubin AST ALT Alkaline Phosphatase Total Protein Albumin Urine Color Urine Appearance Urine pH Ur Specific [place] Urine Protein Urine Glucose (UA) Urine Ketones Urine Blood Urine Nitrite Urine Bilirubin Urine Urobilinogen Ur Leukocyte Esterase Urine WBC (Auto) Urine RBC (Auto) Urine Casts (Auto) U Epithel Cells (Auto) Urine Crystals (Auto) Urine Bacteria (Auto) Urine Osmolality Ur Random Sodium Ur Random Potassium Ur Random Chloride 10/20/18 10/20/18 10/20/18 05:30 05:30 06:21 WBC 14.1 H RBC 2.53 L Hgb 7.7 L Hct 23.8 L MCV 94.0 MCH 30.4 MCHC 32.3 RDW 17.2 H Plt Count 104 L D MPV 9.5 Sodium 160 H Potassium 3.7 Chloride 126 H Carbon Dioxide 32 Anion Gap 2 L BUN 49 H Creatinine 1.6 H Creat Clearance w eGFR 41.80 POC Glucometer 208 Random Glucose 223 H Calcium 8.0 L Phosphorus 2.7 Magnesium 3.1 H Total Bilirubin 1.5 H AST 20 ALT 16 Alkaline Phosphatase 108 Total Protein 5.2 L Albumin 2.3 L Urine Color Urine Appearance Urine pH Ur Specific [place] Urine Protein Urine Glucose (UA) Urine Ketones Urine Blood Urine Nitrite Urine Bilirubin Urine Urobilinogen Ur Leukocyte Esterase Urine WBC (Auto) Urine RBC (Auto) Urine Casts (Auto) U Epithel Cells (Auto) Urine Crystals (Auto) Urine Bacteria (Auto) Urine Osmolality Ur Random Sodium Ur Random Potassium Ur Random Chloride 10/20/18 09:56 WBC RBC Hgb Hct MCV MCH MCHC RDW Plt Count MPV Sodium Potassium Chloride Carbon Dioxide Anion Gap BUN Creatinine Creat Clearance w eGFR POC Glucometer 213 Random Glucose Calcium Phosphorus Magnesium Total Bilirubin AST ALT Alkaline Phosphatase Total Protein Albumin Urine Color Urine Appearance Urine pH Ur Specific [place] Urine Protein Urine Glucose (UA) Urine Ketones Urine Blood Urine Nitrite Urine Bilirubin Urine Urobilinogen Ur Leukocyte Esterase Urine WBC (Auto) Urine RBC (Auto) Urine Casts (Auto) U Epithel Cells (Auto) Urine Crystals (Auto) Urine Bacteria (Auto) Urine Osmolality Ur Random Sodium Ur Random Potassium Ur Random Chloride IMP: Acute Respiratory Failure UGIB CHF PPM/AICD RENEA AAA Acute blood loss anemia HTN DM CH AICD/PPM Atrial fibrillation on eliquis (?) Aspiration Pneumonitis Follow CBC Normal transfusion threshold: Hgb 8 SCDs IVF Monitor off sedation Enteral feeds Decrease IVF May need diuesis ABX coverage Wean trials as tolerated as mental status improves Dr Saini Critical care time spent in reviewing chart, evaluating patient and formulating plan - 36 minutes
--- NOTE | 2018-10-20 12:03 | PN ---
Progress Note (short form) - Note Progress Note: s: intubated Current Medications Generic Name Dose Route Start Last Admin Trade Name Freq PRN Reason Stop Dose Admin Acetaminophen 1,000 mg 10/16/18 23:47 10/19/18 23:08 Ofirmev Injection - IVPB 1,000 mg Q6H PRN Administration FEVER Albuterol/Ipratropium 1 amp 10/16/18 07:05 Duoneb - NEB Q4H PRN SHORTNESS OF BREATH Chlorhexidine Gluconate 1 applic 10/15/18 22:00 10/19/18 21:22 Hibiclens For Decolonization - TP 1 applic HS USHA Administration Propofol 1,000,000 mcg in 100 mls @ 4.491 mls/hr 10/15/18 12:00 10/20/18 04: 44 Diprivan - IVPB 10 mcg/kg/min TITR USHA 8.981 mls/hr Titration Protocol 5 MCG/KG/MIN Ampicillin Sodium/Sulbactam 100 mls @ 200 mls/hr 10/15/18 22:15 10/20/18 09: 35 Sodium 1.5 gm/ Sodium Chloride IVPB 200 mls/hr Q6H-IV USHA Administration Dextrose 1,000 mls @ 125 mls/hr 10/19/18 11:54 10/20/18 04:45 D5w - IV 125 mls/hr Q8H USHA Administration Insulin Aspart 1 vial 10/17/18 14:00 10/20/18 10:45 Novolog Vial Sliding Scale - SQ 4 units Q4HPO USHA Administration Protocol Mupirocin 1 applic 10/15/18 22:00 10/20/18 09:38 Bactroban Ointment (For Decolonization) - NS 10/20/18 21:59 1 applic BID USHA Administration Nystatin 1 applic 10/15/18 22:00 10/20/18 09:37 Mycostatin Cream - TP 1 applic BID USHA Administration Pantoprazole Sodium 40 mg 10/18/18 10:00 10/20/18 09:37 Protonix Iv IVPUSH 40 mg DAILY USHA Administration Vital Signs Period Temp Pulse Resp BP Sys/Lambert Pulse Ox Last 24 Hr 98.1 F-100.5 F 84-112 16-24 106-140/55-81 95-96 Constitutional: Yes: intubated, sedated Eyes: No: Sclera Icterus Respiratory: Yes: CTA Bilaterally (decr diffusely, anteriorly ausculated) No: Accessory Muscle Use, Wheezes Gastrointestinal: Yes: Normal Bowel Sounds. No: Distention, Hepatomegaly, Palpable Mass, Tenderness Cardiovascular: Yes: Pulse Irregular JVD: no Heart Sounds: Yes: S1, S2. 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 consolidation/ bibasilar atelectasis tele: afib, occasional RVR 80M h/o chronic systolic HF, ICD, afib on xarelto, epistaxis p/w coffee ground emesis, alt mental status coffee ground emesis - transfuse per critical care - manage per GI, s/p EGD afib - on carvedilol, digoxin at home - history of epistaxis requiring transfusions, cauterization - holding xarelto - holding PO meds, diltiazem IV PRN for tachycardia paroxysmal VT, s/p ICD - multiple prior episodes, prior shock - monitoring on tele Chronic systolic HF - EF 40-45%echo 09/2017 - on torsemide, carvedilol at home - per patient's in the last 1-2 weeks more edema and short of breath. 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
[2018-10-20] MEDS ORDERED: BENZOIN/ALOE VERA/STORAX/TOLU 58 ML BOTTLE ONE (12:53)
[2018-10-20 13:58] LABS: ANION GAP 2 MMOL/L (8-16); BLOOD UREA NITROGEN 42 mg/dL (7-18); CALCIUM 8.2 mg/dL (8.5-10.1); CHLORIDE 126 mmol/L (98-107); CO2 33 mmol/L (21-32); CREATININE 1.4 mg/dL (0.55-1.3); GLUCOSE,RANDOM 218 mg/dL (74-106); POTASSIUM 3.9 mmol/L (3.5-5.1)
[2018-10-20 14:25] LABS: SODIUM 161 mmol/L (136-145)
--- NOTE | 2018-10-20 14:33 | PN ---
Teaching Attending Note Name of Resident: Anabela Maciel ATTENDING PHYSICIAN STATEMENT I saw and evaluated the patient. I reviewed the resident's note and discussed the case with the resident. I agree with the resident's findings and plan as documented with exceptions below. SUBJECTIVE: Patient seen and examined. intubated and sedated. Nursing at bedside OBJECTIVE: Vital Signs Period Temp Pulse Resp BP Sys/Lambert Pulse Ox Last 24 Hr 98.2 F-100.5 F 84-112 16-24 106-140/55-81 95-96 Intake & Output 10/17/18 10/18/18 10/19/18 10/20/18 23:59 23:59 23:59 23:59 Intake Total 2604.8 3348.8 1861.8 1134.5 Output Total 2700 3700 2100 600 Balance -95.2 -351.2 -238.2 534.5 Weight 308 lb 310 lb 13.76 oz 301 lb 13.005 oz 303 lb 5.697 oz General: intubated sedated anasarcic in bed CVS:S1S2 irregular Chest: limited exam, scattered rales Abdomen;Soft obese Extremities: anasarcic Home Medications Medication Instructions Recorded Atorvastatin Ca [Lipitor] 10 mg PO HS 10/15/17 Carvedilol [Coreg -] 18.75 mg PO BID 10/15/17 Sitagliptin Phosphate [Januvia] 100 mg PO DAILY 10/15/17 Pantoprazole Sodium [Protonix] 40 mg PO DAILY #4 tablet. 10/20/17 Rivaroxaban [Xarelto] 15 mg PO DAILY #30 tab 11/02/17 Amiodarone HCl [Cordarone -] 400 mg PO DAILY 10/15/18 Glyburide 10 mg PO BID 10/15/18 Torsemide [Demadex -] 200 mg PO BID 10/15/18 Active Medications Acetaminophen (Ofirmev Injection -) 1,000 mg IVPB Q6H PRN PRN Reason: FEVER Last Admin: 10/19/18 23:08 Dose: 1,000 mg Albuterol/Ipratropium (Duoneb -) 1 amp NEB Q4H PRN PRN Reason: SHORTNESS OF BREATH Chlorhexidine Gluconate (Hibiclens For Decolonization -) 1 applic TP HS US[facility] Last Admin: 10/19/18 21:22 Dose: 1 applic Propofol (Diprivan -) 1,000,000 mcg in 100 mls @ 4.491 mls/hr IVPB TITR [facility]; Protocol Last Titration: 10/20/18 04:44 Dose: 10 mcg/kg/min, 8.981 mls/hr Ampicillin Sodium/Sulbactam (Sodium 1.5 gm/ Sodium Chloride) 100 mls @ 200 mls/ hr IVPB Q6H-IV [facility] Last Admin: 10/20/18 09:35 Dose: 200 mls/hr Dextrose (D5w -) 1,000 mls @ 125 mls/hr IV Q8H US[facility] Last Admin: 10/20/18 13:06 Dose: 125 mls/hr Insulin Aspart (Novolog Vial Sliding Scale -) 1 vial SQ Q4HPO [facility]; Protocol Last Admin: 10/20/18 10:45 Dose: 4 units Mupirocin (Bactroban Ointment (For Decolonization) -) 1 applic NS BID US[facility] Stop: 10/20/18 21:59 Last Admin: 10/20/18 09:38 Dose: 1 applic Nystatin (Mycostatin Cream -) 1 applic TP BID USHA Last Admin: 10/20/18 09:37 Dose: 1 applic Pantoprazole Sodium (Protonix Iv) 40 mg IVPUSH DAILY [facility] Last Admin: 10/20/18 09:37 Dose: 40 mg Laboratory Results - last 24 hr 10/19/18 10/19/18 10/19/18 13:00 13:00 15:56 WBC RBC Hgb Hct MCV MCH MCHC RDW Plt Count MPV Sodium Potassium Chloride Carbon Dioxide Anion Gap BUN Creatinine Creat Clearance w eGFR POC Glucometer 262 Random Glucose Calcium Phosphorus Magnesium Total Bilirubin AST ALT Alkaline Phosphatase Total Protein Albumin Urine Osmolality 526 Ur Random Sodium < 18 L Ur Random Potassium 20.2 L Ur Random Chloride < 11 L 10/19/18 10/19/18 10/19/18 19:30 20:50 22:38 WBC RBC Hgb Hct MCV MCH MCHC RDW Plt Count MPV Sodium 161 H* Potassium 4.1 Chloride 126 H Carbon Dioxide 31 Anion Gap 4 L BUN 61 H Creatinine 1.7 H Creat Clearance w eGFR 38.97 POC Glucometer 257 237 Random Glucose 276 H Calcium 8.3 L Phosphorus Magnesium Total Bilirubin AST ALT Alkaline Phosphatase Total Protein Albumin Urine Osmolality Ur Random Sodium Ur Random Potassium Ur Random Chloride 10/20/18 10/20/18 10/20/18 01:37 05:30 05:30 WBC 14.1 H RBC 2.53 L Hgb 7.7 L Hct 23.8 L MCV 94.0 MCH 30.4 MCHC 32.3 RDW 17.2 H Plt Count 104 L D MPV 9.5 Sodium 160 H Potassium 3.7 Chloride 126 H Carbon Dioxide 32 Anion Gap 2 L BUN 49 H Creatinine 1.6 H Creat Clearance w eGFR 41.80 POC Glucometer 214 Random Glucose 223 H Calcium 8.0 L Phosphorus 2.7 Magnesium 3.1 H Total Bilirubin 1.5 H AST 20 ALT 16 Alkaline Phosphatase 108 Total Protein 5.2 L Albumin 2.3 L Urine Osmolality Ur Random Sodium Ur Random Potassium Ur Random Chloride 10/20/18 10/20/18 10/20/18 06:21 09:56 13:00 WBC RBC Hgb Hct MCV MCH MCHC RDW Plt Count MPV Sodium Potassium Chloride Carbon Dioxide Anion Gap BUN Creatinine Creat Clearance w eGFR POC Glucometer 208 213 217 Random Glucose Calcium Phosphorus Magnesium Total Bilirubin AST ALT Alkaline Phosphatase Total Protein Albumin Urine Osmolality Ur Random Sodium Ur Random Potassium Ur Random Chloride 10/20/18 13:22 WBC RBC Hgb Hct MCV MCH MCHC RDW Plt Count MPV Sodium 161 H* Potassium 3.9 Chloride 126 H Carbon Dioxide 33 H Anion Gap 2 L BUN 42 H Creatinine 1.4 H Creat Clearance w eGFR 48.76 POC Glucometer Random Glucose 218 H Calcium 8.2 L Phosphorus Magnesium Total Bilirubin AST ALT Alkaline Phosphatase Total Protein Albumin Urine Osmolality Ur Random Sodium Ur Random Potassium Ur Random Chloride Microbiology 10/19/18 12:30 Blood - Peripheral Venous Blood Culture - Preliminary NO GROWTH OBTAINED AFTER 24 HOURS, INCUBATION TO CONTINUE FOR 4 DAYS. 10/19/18 12:40 Blood - Peripheral Venous Blood Culture - Preliminary NO GROWTH OBTAINED AFTER 24 HOURS, INCUBATION TO CONTINUE FOR 4 DAYS. 10/15/18 10:00 Blood - Peripheral Venous Blood Culture - Final NO GROWTH AFTER 5 DAYS INCUBATION 10/15/18 10:30 Blood - Peripheral Venous Blood Culture - Final NO GROWTH AFTER 5 DAYS INCUBATION 10/15/18 10:40 Urine - Urine - Catheterized Urine Culture - Final NO GROWTH OBTAINED CXR Images and results reviewed ASSESSMENT AND PLAN: 82 yom with PMHx of chronic systolic HF, Paroxysmal VT s/p ICD, afib on xarelto , epistaxis, Ascending aortic aneurysm (5 cm), CONSTANTINO, HLD, admitted with coffee ground emesis and AMS. -Acute upper GI bleed s/p EGD with antral non bleeding Ulcer/Small clot in fundus without underlyling lesion/submucosal nodule -Acute blood loss anemia s/p 5 units PRBC -AMS, encephalopathy from above, suspect associated with electrolytes abnormalities -Severe hypernatremia (Free water deficit around 10L) -Suspected aspiration PNA -Acute systolic heart failure exacerbation -Atrial fibrillation on xarelto -Chronic systolic Heart failure -CONSTANTINO (refused CPAP) -h/o paroxysmal VT s/p ICD -Ascending aortic aneurysm (5.0 cm) -HLD -NIDDM Plan: Looks fluid overloaded, CXR worse. Needs free water given concerning hypernatremia Will likely need lasix with IVF with close monitoring. H/H noted, suspect dilutional. Avoid PRBC for now given concerns for volume overload. Weaning trial per ICU. Continue to hold xarelto. IV Protonix, GI input noted, Renal input noted. Free water via NGT start tube feeds. Continue unasyn, follow up cultures. Resume coreg/amiodarone as able. Diltiazem IV Prn for tachycardia. ISS DVTPPX with SCDs dispo ICU level of care Poor prognosis Palliative care consult to address overall goals of care. Plan discussed with Nursing, care co-ordinated with ICU team Total critical care time spent 36 min.
[2018-10-20] MEDS: PROPOFOL 1,000,000 MCG/100 ML VIAL IVPB SCH ×2 (14:50→21:23)
--- NOTE | 2018-10-20 16:24 | PN ---
Physical Exam: SUBJECTIVE: Patient seen and examined in ICU. OBJECTIVE: Vital Signs Period Temp Pulse Resp BP Sys/Lambert Pulse Ox Last 24 Hr 98.2 F-100.5 F 84-112 16-24 109-140/52-81 95-96 GENERAL: The patient is sedated, on mechanical ventilation. HEAD: Normal with no signs of trauma. EYES: PERRL, conjunctiva clear. ENT: Oropharynx clear without exudates, moist mucous membranes, on mech vent. NECK: Trachea midline, supple. LUNGS: Clear to auscultation bilaterally, no wheezes, no crackles. HEART: Irregular rate and rhythm, S1, S2 without murmur, rub or gallop. ABDOMEN: Obese, soft, nontender, nondistended, normoactive bowel sounds. EXTREMITIES: 2+ pulses, warm, 3+ edema in upper and lower extremities. NEUROLOGICAL: sedated SKIN: Warm, dry, no rashes. Laboratory Results - last 24 hr 10/19/18 10/19/18 10/19/18 13:00 19:30 20:50 WBC RBC Hgb Hct MCV MCH MCHC RDW Plt Count MPV Sodium 161 H* Potassium 4.1 Chloride 126 H Carbon Dioxide 31 Anion Gap 4 L BUN 61 H Creatinine 1.7 H Creat Clearance w eGFR 38.97 POC Glucometer 257 Random Glucose 276 H Calcium 8.3 L Phosphorus Magnesium Total Bilirubin AST ALT Alkaline Phosphatase Total Protein Albumin Ur Random Potassium 20.2 L 10/19/18 10/20/18 10/20/18 22:38 01:37 05:30 WBC 14.1 H RBC 2.53 L Hgb 7.7 L Hct 23.8 L MCV 94.0 MCH 30.4 MCHC 32.3 RDW 17.2 H Plt Count 104 L D MPV 9.5 Sodium Potassium Chloride Carbon Dioxide Anion Gap BUN Creatinine Creat Clearance w eGFR POC Glucometer 237 214 Random Glucose Calcium Phosphorus Magnesium Total Bilirubin AST ALT Alkaline Phosphatase Total Protein Albumin Ur Random Potassium 10/20/18 10/20/18 10/20/18 05:30 06:21 09:56 WBC RBC Hgb Hct MCV MCH MCHC RDW Plt Count MPV Sodium 160 H Potassium 3.7 Chloride 126 H Carbon Dioxide 32 Anion Gap 2 L BUN 49 H Creatinine 1.6 H Creat Clearance w eGFR 41.80 POC Glucometer 208 213 Random Glucose 223 H Calcium 8.0 L Phosphorus 2.7 Magnesium 3.1 H Total Bilirubin 1.5 H AST 20 ALT 16 Alkaline Phosphatase 108 Total Protein 5.2 L Albumin 2.3 L Ur Random Potassium 10/20/18 10/20/18 10/20/18 13:00 13:22 15:02 WBC RBC Hgb Hct MCV MCH MCHC RDW Plt Count MPV Sodium 161 H* Potassium 3.9 Chloride 126 H Carbon Dioxide 33 H Anion Gap 2 L BUN 42 H Creatinine 1.4 H Creat Clearance w eGFR 48.76 POC Glucometer 217 197 Random Glucose 218 H Calcium 8.2 L Phosphorus Magnesium Total Bilirubin AST ALT Alkaline Phosphatase Total Protein Albumin Ur Random Potassium Active Medications Generic Name Dose Route Start Last Admin Trade Name Freq PRN Reason Stop Dose Admin Acetaminophen 1,000 mg 10/16/18 23:47 10/19/18 23:08 Ofirmev Injection - IVPB 1,000 mg Q6H PRN Administration FEVER Albuterol/Ipratropium 1 amp 10/16/18 07:05 Duoneb - NEB Q4H PRN SHORTNESS OF BREATH Chlorhexidine Gluconate 1 applic 10/15/18 22:00 10/19/18 21:22 Hibiclens For Decolonization - TP 1 applic HS USHA Administration Propofol 1,000,000 mcg in 100 mls @ 4.491 mls/hr 10/15/18 12:00 10/20/18 14: 50 Diprivan - IVPB 10 mcg/kg/min TITR [facility] 8.981 mls/hr Administration Protocol 5 MCG/KG/MIN Ampicillin Sodium/Sulbactam 100 mls @ 200 mls/hr 10/15/18 22:15 10/20/18 14: 50 Sodium 1.5 gm/ Sodium Chloride IVPB 200 mls/hr Q6H-IV [facility] Administration Dextrose 1,000 mls @ 75 mls/hr 10/20/18 15:09 D5w - IV Q8H US[facility] Insulin Aspart 1 vial 10/17/18 14:00 10/20/18 15:04 Novolog Vial Sliding Scale - SQ 2 units Q4HPO [facility] Administration Protocol Mupirocin 1 applic 10/15/18 22:00 10/20/18 09:38 Bactroban Ointment (For Decolonization) - NS 10/20/18 21:59 1 applic BID US[facility] Administration Nystatin 1 applic 04/20/19 22:00 10/20/18 09:37 Mycostatin Cream - TP 1 applic BID [facility] Administration Pantoprazole Sodium 40 mg 10/18/18 10:00 10/20/18 09:37 Protonix Iv IVPUSH 40 mg DAILY [facility] Administration ASSESSMENT/PLAN: The patient is 82 year old male patient with hx of atrial fibrillation, HTN, DM , DL, HFrEF s/p single lead ICD (medtronic) presented AMS after his son found him vomiting blood, and intubated in ED, admitted to ICU for futher management. Upper GI bleed: -no history of GI bleeding, coffee ground emesis -intubated, sedated -monitored H/H, transfused 5 units of PRBC -upper endoscopy: positive 3mm clean based ulcer in proximal antrum and 8mm submucosal nodule in antrum -will monitor for bleeding -PPI: 40 mg qd Acute respiratory failure: -intubated on AC -CT chest: bilateral lower lobe consolidation/atelectasis, CXR reviewed -will follow up Pulm recommendations -cont Duoneb q4h PRN -possible aspiration pneumonia Atrial Fibrillation: - holding xarelto due to bleeding - cont diltiazem IV PRN for tachycardia -cardiac monitoring Chronic systolic HF -last ECHO 09/2017, with EF 40-45% -strict I&O -continue to monitor volume status, hold diuretics, cont D5 Hypernatremia: -unchanged -f/u Nephro recs, D5W decreased to 75 cc/hr, added free water flushes -water deficit over 10 L -monitor Possible UTI/aspiration PNA: -cont Ampicillin -cont to spike low grade fever -UA positive, Villa changed Ascending aorta aneurysm: -4.[address], arch 4.2 cm, no dissection HLD -hold statins DM -ISS ACHS -BGM ACHS -HgA1c 6.4% F/E/N: LR/Na161/NPO likely will start feedings Disposition: ICU monitoring Problem List - Problems (1) Abnormal liver function tests Code(s): R94.5 - ABNORMAL RESULTS OF LIVER FUNCTION STUDIES (2) Diabetic neuropathy Code(s): E11.40 - TYPE 2 DIABETES MELLITUS WITH DIABETIC NEUROPATHY, UNSP (3) Hypothyroidism Code(s): E03.9 - HYPOTHYROIDISM, UNSPECIFIED (4) Morbid exogenous obesity Code(s): E66.01 - MORBID (SEVERE) OBESITY DUE TO EXCESS CALORIES (5) Renal insufficiency Code(s): N28.9 - DISORDER OF KIDNEY AND URETER, UNSPECIFIED (6) Sleep apnea Code(s): G47.30 - SLEEP APNEA, UNSPECIFIED (7) Upper GI bleed Code(s): K92.2 - GASTROINTESTINAL HEMORRHAGE, UNSPECIFIED (8) Syncope Code(s): R55 - SYNCOPE AND COLLAPSE (9) Volume overload Code(s): E87.70 - FLUID OVERLOAD, UNSPECIFIED (10) Atrial fibrillation Code(s): I48.91 - UNSPECIFIED ATRIAL FIBRILLATION (11) CHF (congestive heart failure) Code(s): I50.9 - HEART FAILURE, UNSPECIFIED (12) Diabetes mellitus Code(s): E11.9 - TYPE 2 DIABETES MELLITUS WITHOUT COMPLICATIONS Qualifiers: Diabetes mellitus type: type 2 (13) Thoracic aortic aneurysm Code(s): I71.2 - THORACIC AORTIC ANEURYSM, WITHOUT RUPTURE (14) Venous stasis Code(s): I87.8 - OTHER SPECIFIED DISORDERS OF VEINS Visit type - Emergency Visit Emergency Visit: Yes ED Registration Date: 10/15/18 Care time: The patient presented to the Emergency Department on the above date and was hospitalized for further evaluation of their emergent condition. - New Patient This patient is new to me today: No - Critical Care Critical Care patient: Yes Total Critical Care Time (in minutes): 40 Critical Care Statement: The care of this patient involved high complexity decision making to prevent further life threatening deterioration of the patient 's condition and/or to evaluate & treat vital organ system(s) failure or risk of failure. - Discharge Referral Referred to [facility] Med [facility] No
--- NOTE | 2018-10-20 16:42 | PN ---
Progress Note, Physician Chief Complaint: The patient seen in his ICU room. Remains poorly responsive. Sedated, vent supported. Maintains excellent urine output. History of Present Illness: This is a 82 year old gentleman with hx of Afib, Hypertension, DM, CHF with reduced ejection fraction, CKD presented with AMS and upper GI bleed found to have gastric ulcer and worsening Hypernatremia. S/p EGD that showed 3mm clean based ulcer in proximal antrum and 8mm submucosal nodule in antrum. Pt is currently intubated via ET tube, on vent support. Making urine via jameson. IV D5W well tolerated. Also free water has been started to be supplemented through the NG tube. - Current Medication List Current Medications: Active Medications Acetaminophen (Ofirmev Injection -) 1,000 mg IVPB Q6H PRN PRN Reason: FEVER Last Admin: 10/19/18 23:08 Dose: 1,000 mg Albuterol/Ipratropium (Duoneb -) 1 amp NEB Q4H PRN PRN Reason: SHORTNESS OF BREATH Chlorhexidine Gluconate (Hibiclens For Decolonization -) 1 applic TP HS [facility] Last Admin: 10/19/18 21:22 Dose: 1 applic Propofol (Diprivan -) 1,000,000 mcg in 100 mls @ 4.491 mls/hr IVPB TITR [facility]; Protocol Last Admin: 10/20/18 14:50 Dose: 10 mcg/kg/min, 8.981 mls/hr Ampicillin Sodium/Sulbactam (Sodium 1.5 gm/ Sodium Chloride) 100 mls @ 200 mls/ hr IVPB Q6H-IV [facility] Last Admin: 10/20/18 14:50 Dose: 200 mls/hr Dextrose (D5w -) 1,000 mls @ 75 mls/hr IV Q8H [facility] Insulin Aspart (Novolog Vial Sliding Scale -) 1 vial SQ Q4HPO [facility]; Protocol Last Admin: 10/20/18 15:04 Dose: 2 units Mupirocin (Bactroban Ointment (For Decolonization) -) 1 applic NS BID [facility] Stop: 10/20/18 21:59 Last Admin: 10/20/18 09:38 Dose: 1 applic Nystatin (Mycostatin Cream -) 1 applic TP BID [facility] Last Admin: 10/20/18 09:37 Dose: 1 applic Pantoprazole Sodium (Protonix Iv) 40 mg IVPUSH DAILY [facility] Last Admin: 10/20/18 09:37 Dose: 40 mg - Objective Vital Signs: Vital Signs Temperature 98.5 F 10/20/18 14:00 Pulse Rate 98 H 10/20/18 14:00 Respiratory Rate 20 10/20/18 15:14 Blood Pressure 110/52 L 10/20/18 14:00 O2 Sat by Pulse Oximetry (%) 95 10/20/18 08:33 HENT: Yes: Normocephalic Neck: Yes: Trachea Midline Cardiovascular: Yes: Tachycardia, S1, S2 Respiratory: Yes: Mechanically Ventilated, Rhonchi Gastrointestinal: Yes: Soft, Abdomen, Obese Genitourinary: Yes: Jameson Present Musculoskeletal: No: Back Pain, Joint Stiffness Edema: Yes Neurological: Yes: Unresponsive Labs: CBC, BMP 10/20/18 05:30 10/20/18 13:22 INR, PTT INR 1.28 (0.83-1.09) H 10/17/18 05:30 Assessment/Plan This is a 82 year old gentleman with hx of Afib, Hypertension, DM, CHF with reduced ejection fraction, CKD presented with AMS and upper GI bleed found to have gastric ulcer and worsening Hypernatremia. S/p EGD that showed 3mm clean based ulcer in proximal antrum and 8mm submucosal nodule in antrum. Pt is currently intubated via ET tube, on vent support. Serum sodium today 160mEq/L. Slowly trending down. There is definitely signs of peripheral edema, but this is multifactorial reasons. In the presence of this degree of Hypernatremia, it is hard to make a diagnosis of Intravascular Fluid overload and congestive heart failure. Will contine free water supplements and hope to see a slow down trend of the hypernatremia. Will follow with you. Iens Monterroso MD
[2018-10-20] MEDS: CHLORHEXIDINE GLUCONATE 4% CLEANSER FOR DECOLONIZATION TP SCH (21:06)
[2018-10-21] MEDS ORDERED: AMPICILLIN NA/SULBACTAM NA 1.5 GM VIAL ONE ×2 (02:56→08:09)
[2018-10-21] MEDS ORDERED: SODIUM CHLORIDE 100 ML IVPB ONE ×2 (02:56→08:09)
[2018-10-21] MEDS: INSULIN SLIDING SCALE (NOVOLOG) 1 VIAL SQ SCH ×6 (02:57→22:24)
[2018-10-21] MEDS: AMPICILLIN NA/SULBACTAM NA 1.5 GM in SODIUM CHLORIDE 100 ML IVPB SCH ×2 (02:57→08:11)
[2018-10-21] MEDS: PROPOFOL 1,000,000 MCG/100 ML VIAL IVPB SCH ×2 (05:09→17:07)
[2018-10-21] MEDS: DEXTROSE 5%-WATER - 1,000 ML IV SCH ×3 (05:30→09:24)
[2018-10-21 06:40] LABS: HEMATOCRIT 24.8 % (35.4-49); HEMOGLOBIN 7.7 GM/dL (11.7-16.9); MCH 29.8 pg (25.7-33.7); MCHC 31.2 g/dl (32.0-35.9); MEAN CELL VOLUME 95.5 fl (80-96); MEAN PLT VOLUME 10.1 fl (7.5-11.1); PLATELET COUNT 103 K/MM3 (134-434); RBC 2.59 M/mm3 (4.00-5.60); RDW 18.2 % (11.9-15.9)
[2018-10-21 07:02] LABS: ALBUMIN 2.3 g/dl (3.4-5.0); ALK PHOS 122 U/L (45-117); ANION GAP 1 MMOL/L (8-16); BILIRUBIN,TOTAL 1.4 mg/dL (0.2-1); BLOOD UREA NITROGEN 39 mg/dL (7-18); CHLORIDE 122 mmol/L (98-107); CO2 31 mmol/L (21-32); CREATININE 1.4 mg/dL (0.55-1.3); GLUCOSE,RANDOM 194 mg/dL (74-106); PHOSPHOROUS 3.2 mg/dL (2.5-4.9); POTASSIUM 4.3 mmol/L (3.5-5.1); SGOT/AST 23 U/L (15-37); SGPT/ALT 17 U/L (13-61); SODIUM 155 mmol/L (136-145); TOT PROT 5.3 g/dl (6.4-8.2)
[2018-10-21] MEDS: ACETAMINOPHEN 1000 MG/100 ML VIAL (NON FORMULARY) IVPB PRN (08:10)
--- NOTE | 2018-10-21 08:46 | PN ---
Progress Note, Physician Chief Complaint: seen and examined in ICU Tele reviewed Remains intubated and sedated 40%FIO2 History of Present Illness: low grade fever - Current Medication List Current Medications: Active Medications Albuterol/Ipratropium (Duoneb -) 1 amp NEB Q4H PRN PRN Reason: SHORTNESS OF BREATH Chlorhexidine Gluconate (Hibiclens For Decolonization -) 1 applic TP HS [facility] Last Admin: 10/20/18 21:06 Dose: 1 applic Propofol (Diprivan -) 1,000,000 mcg in 100 mls @ 4.491 mls/hr IVPB TITR [facility]; Protocol Last Titration: 10/21/18 07:00 Dose: 15 mcg/kg/min, 13.472 mls/hr Ampicillin Sodium/Sulbactam (Sodium 1.5 gm/ Sodium Chloride) 100 mls @ 200 mls/ hr IVPB Q6H-IV [facility] Last Admin: 10/21/18 08:11 Dose: 200 mls/hr Dextrose (D5w -) 1,000 mls @ 75 mls/hr IV Q8H [facility] Last Admin: 10/21/18 05:31 Dose: Not Given Insulin Aspart (Novolog Vial Sliding Scale -) 1 vial SQ Q4HPO [facility]; Protocol Last Admin: 10/21/18 06:36 Dose: 2 units Nystatin (Mycostatin Cream -) 1 applic TP BID [facility] Last Admin: 10/20/18 21:06 Dose: 1 applic Pantoprazole Sodium (Protonix Iv) 40 mg IVPUSH DAILY [facility] Last Admin: 10/20/18 09:37 Dose: 40 mg - Objective Vital Signs: Vital Signs Temperature 100.8 F H 10/21/18 06:00 Pulse Rate 104 H 10/21/18 06:00 Respiratory Rate 21 H 10/21/18 08:09 Blood Pressure 121/77 10/21/18 06:00 O2 Sat by Pulse Oximetry (%) 98 10/21/18 04:59 Constitutional: Yes: No Distress HENT: Yes: Other (+ ETT) Cardiovascular: Yes: Pulse Irregular Respiratory: Yes: Other (= breath sounds b/l ; no wheezing) Gastrointestinal: Yes: Soft, Abdomen, Obese Edema: Yes Edema: LLE: 1+ (venous stasis), RLE: 1+ (venous stasis changes) Neurological: Yes: Other (sedated on vent) Labs: CBC, BMP 10/21/18 05:30 10/21/18 05:30 INR, PTT INR 1.28 (0.83-1.09) H 10/17/18 05:30 Microbiology 10/19/18 12:40 Blood - Peripheral Venous Blood Culture - Preliminary NO GROWTH OBTAINED AFTER 24 HOURS, INCUBATION TO CONTINUE FOR 4 DAYS. 10/19/18 12:30 Blood - Peripheral Venous Blood Culture - Preliminary NO GROWTH OBTAINED AFTER 24 HOURS, INCUBATION TO CONTINUE FOR 4 DAYS. 10/15/18 10:30 Blood - Peripheral Venous Blood Culture - Preliminary NO GROWTH OBTAINED AFTER 24 HOURS, INCUBATION TO CONTINUE FOR 4 DAYS. 10/15/18 10:00 Blood - Peripheral Venous Blood Culture - Preliminary NO GROWTH OBTAINED AFTER 24 HOURS, INCUBATION TO CONTINUE FOR 4 DAYS. Laboratory Tests 10/15/18 10/17/18 10/17/18 10:31 05:30 05:30 WBC 24.1 H Hgb 8.3 L Hct 24.7 L Plt Count 180 Sodium 158 H Potassium 4.1 BUN 114 H* Creatinine 2.2 H Stool Occult Blood Positive 10/21/18 10/21/18 05:30 05:30 WBC 13.0 H Hgb 7.7 L Hct 24.8 L Plt Count 103 L Sodium 155 H Potassium 4.3 BUN 39 H Creatinine 1.4 H Stool Occult Blood - ....Imaging Chest X-ray: Report Reviewed, Image Reviewed EKG: Image Reviewed Assessment/Plan 82M h/o chronic systolic HF, ICD, afib on xarelto, epistaxis p/w coffee ground emesis, alt mental status 1. Coffee ground emesis/GIB: - transfuse per critical care - manage per GI 2. AF: - on carvedilol, digoxin at home - history of epistaxis requiring transfusions, cauterization - holding xarelto - holding PO meds, diltiazem IV PRN for tachycardia 3. Paroxysmal VT, s/p ICD: - multiple prior episodes, prior shocks - monitoring on tele 4. Chronic systolic HF: - EF 40-45%echo 09/2017 - holding diuretics in current setting of GIB 5. Aneurysm of ascending aorta: - prior reports 5.0 cm, yearly imaging with CT chest and consideration for surgery if >6 cm - 4.8 cm here, no dissection 6. CONSTANTINO: - refuses CPAP at home 7.HLD: - on statin at home, holding while NPO
[2018-10-21] MEDS: PANTOPRAZOLE SODIUM 40 MG VIAL IVPUSH SCH (09:43)
[2018-10-21] MEDS: NYSTATIN 100,000 UNIT/GM TOPICAL CREAM 15 GM TUBE TP SCH ×2 (09:44→22:23)
[2018-10-21] MEDS ORDERED: FUROSEMIDE 40 MG/4 ML INJECTABLE VIAL IVPUSH ONE (10:49)
--- NOTE | 2018-10-21 11:02 | PN ---
Teaching Attending Note Name of Resident: Kamini Cooper ATTENDING PHYSICIAN STATEMENT I saw and evaluated the patient. I reviewed the resident's note and discussed the case with the resident. I agree with the resident's findings and plan as documented. SUBJECTIVE: Patient seen and examined in the ICU. Intubated and sedated on AC Mode of vent , 40%. Sedation was stopped about 30 hour ago, minimally arousable. No pressors. No occult bleeding. Intake & Output 10/18/18 10/19/18 10/20/18 10/21/18 23:59 23:59 23:59 23:59 Intake Total 3348.8 1861.8 1134.5 2532.4 Output Total 3700 2100 2900 400 Balance -351.2 -238.2 -1765.5 2132.4 Weight 310 lb 13.76 oz 301 lb 13.005 oz 303 lb 5.697 oz 303 lb Last Vital Signs Temp Pulse Resp BP Pulse Ox 100.8 F H 104 H 21 H 121/77 98 10/21/18 06:00 10/21/18 06:00 10/21/18 08:09 10/21/18 06:00 10/21/18 04:59 Active Medications Albuterol/Ipratropium (Duoneb -) 1 amp NEB Q4H PRN PRN Reason: SHORTNESS OF BREATH Chlorhexidine Gluconate (Hibiclens For Decolonization -) 1 applic TP HS [facility] Last Admin: 10/20/18 21:06 Dose: 1 applic Propofol (Diprivan -) 1,000,000 mcg in 100 mls @ 4.491 mls/hr IVPB TITR [facility]; Protocol Last Titration: 10/21/18 08:30 Dose: 0 mcg/kg/min, 0 mls/hr Ampicillin Sodium/Sulbactam (Sodium 1.5 gm/ Sodium Chloride) 100 mls @ 200 mls/ hr IVPB Q6H-IV [facility] Last Admin: 10/21/18 08:11 Dose: 200 mls/hr Dextrose (D5w -) 1,000 mls @ 75 mls/hr IV Q8H [facility] Last Admin: 10/21/18 09:24 Dose: 75 mls/hr Insulin Aspart (Novolog Vial Sliding Scale -) 1 vial SQ Q4HPO [facility]; Protocol Last Admin: 04/26/19 06:36 Dose: 2 units Nystatin (Mycostatin Cream -) 1 applic TP BID [facility] Last Admin: 10/21/18 09:44 Dose: 1 applic Pantoprazole Sodium (Protonix Iv) 40 mg IVPUSH DAILY [facility] Last Admin: 10/21/18 09:43 Dose: 40 mg Gen; Intubated sedated HEENT: orally intubated PULM: diminished bases, no wheezes CV: tachy, irreg ABD: soft, +BS EXT: venous stasis, pitting and weeping LE edema NEURO: sedated Laboratory Results - last 24 hr 10/20/18 10/20/18 10/20/18 13:00 13:22 15:02 WBC RBC Hgb Hct MCV MCH MCHC RDW Plt Count MPV Sodium 161 H* Potassium 3.9 Chloride 126 H Carbon Dioxide 33 H Anion Gap 2 L BUN 42 H Creatinine 1.4 H Creat Clearance w eGFR 48.76 POC Glucometer 217 197 Random Glucose 218 H Calcium 8.2 L Phosphorus Magnesium Total Bilirubin AST ALT Alkaline Phosphatase Total Protein Albumin 10/20/18 10/20/18 10/21/18 19:10 21:09 02:50 WBC RBC Hgb Hct MCV MCH MCHC RDW Plt Count MPV Sodium Potassium Chloride Carbon Dioxide Anion Gap BUN Creatinine Creat Clearance w eGFR POC Glucometer 169 182 204 Random Glucose Calcium Phosphorus Magnesium Total Bilirubin AST ALT Alkaline Phosphatase Total Protein Albumin 10/21/18 10/21/18 10/21/18 05:30 05:30 06:34 WBC 13.0 H RBC 2.59 L Hgb 7.7 L Hct 24.8 L MCV 95.5 MCH 29.8 MCHC 31.2 L RDW 18.2 H Plt Count 103 L MPV 10.1 Sodium 155 H Potassium 4.3 Chloride 122 H Carbon Dioxide 31 Anion Gap 1 L BUN 39 H Creatinine 1.4 H Creat Clearance w eGFR 48.76 POC Glucometer 192 Random Glucose 194 H Calcium 8.0 L Phosphorus 3.2 Magnesium 3.0 H Total Bilirubin 1.4 H AST 23 ALT 17 Alkaline Phosphatase 122 H Total Protein 5.3 L Albumin 2.3 L IMP: Acute Respiratory Failure UGIB CHF PPM/AICD RENEA AAA Acute blood loss anemia HTN DM CH AICD/PPM Atrial fibrillation on eliquis (?) Aspiration Pneumonitis Follow CBC Normal transfusion threshold: Hgb 8 SCDs Decrease IVF Lasix today Monitor off sedation Enteral feeds ABX coverage Wean trials as tolerated as mental status improves Dr Saini Critical care time spent in reviewing chart, evaluating patient and formulating plan - 36 minutes
--- NOTE | 2018-10-21 11:47 | PN ---
Progress Note (short form) - Note Progress Note: Renal follow up for Hypernatremia/CKD Pt seen and examined in the ICU on Vent via ET tube, FiO2 is 40% making urine on IVF Vital Signs Temperature 101.7 F H 10/21/18 09:00 Pulse Rate 118 H 10/21/18 09:00 Respiratory Rate 25 H 10/21/18 09:00 Blood Pressure 151/68 10/21/18 09:00 O2 Sat by Pulse Oximetry (%) 95 10/21/18 09:00 Intake & Output 10/18/18 10/19/18 10/20/18 10/21/18 23:59 23:59 23:59 23:59 Intake Total 3348.8 1861.8 1134.5 2532.4 Output Total 3700 2100 2900 400 Balance -351.2 -238.2 -1765.5 2132.4 Weight 141.004 kg 136.9 kg 137.6 kg 137.438 kg Intubated via ET tube irregular HR, no M/R CTA from anterior exam soft, obese abd + edmea upper extremity and lower extremity CBC, BMP 10/21/18 05:30 10/21/18 05:30 Current Medications Albuterol/Ipratropium (Duoneb -) 1 amp NEB Q4H PRN PRN Reason: SHORTNESS OF BREATH Chlorhexidine Gluconate (Hibiclens For Decolonization -) 1 applic TP HS [facility] Last Admin: 10/20/18 21:06 Dose: 1 applic Propofol (Diprivan -) 1,000,000 mcg in 100 mls @ 4.491 mls/hr IVPB TITR [facility]; Protocol Last Titration: 10/21/18 08:30 Dose: 0 mcg/kg/min, 0 mls/hr Ampicillin Sodium/Sulbactam (Sodium 1.5 gm/ Sodium Chloride) 100 mls @ 200 mls/ hr IVPB Q6H-IV [facility] Last Admin: 10/21/18 08:11 Dose: 200 mls/hr Insulin Aspart (Novolog Vial Sliding Scale -) 1 vial SQ Q4HPO [facility]; Protocol Last Admin: 10/21/18 06:36 Dose: 2 units Nystatin (Mycostatin Cream -) 1 applic TP BID [facility] Last Admin: 10/21/18 09:44 Dose: 1 applic Pantoprazole Sodium (Protonix Iv) 40 mg IVPUSH DAILY [facility] Last Admin: 10/21/18 09:43 Dose: 40 mg This is a 82 year old gentleman with hx of Afib, Hypertension, DM, CHF with reduced ejection fraction, CKD presented with AMS and upper GI bleed found to have gastric ulcer and worsening hypernatremia. #Hypernatremia (water deficit ~10L) from lack of free water vs DI vs. Osmotic diuresis (high BUN or high salt load) #AK on CKD #GI Bleed #Respiratory failure #HF #Edema Renal function improved Serum na with mild improvement on current IVF and free water ok with holding D5W for now increase free water to 1600cc dialy Lasix as needed for volume management however likely intramuscularly volume depleted and edema likely due to 3rd spacing trend renal function and electrolytes for now Thank you Bradley Flor DO
--- NOTE | 2018-10-21 11:48 | PN ---
Physical Exam: SUBJECTIVE: Patient seen intubated and sedated. Patient febrile this morning OBJECTIVE: Vital Signs Temperature 101.7 F H 10/21/18 09:00 Pulse Rate 118 H 10/21/18 09:00 Respiratory Rate 25 H 10/21/18 09:00 Blood Pressure 151/68 10/21/18 09:00 O2 Sat by Pulse Oximetry (%) 95 10/21/18 09:00 GENERAL: The patient is intubated and sedated, obese HEAD: Normal with no signs of trauma. LUNGS: Breath sounds equal, clear to auscultation bilaterally, HEART: Regular rate and rhythm, ICD inplace ABDOMEN: Soft, nontender, nondistended, normoactive bowel sounds EXTREMITIES: 2+ pulses, increasing dependent edema SKIN: Warm, dry, normal turgor, no rashes or lesions noted CBCD WBC 13.0 K/mm3 (4.0-10.0) H 10/21/18 05:30 RBC 2.59 M/mm3 (4.00-5.60) L 10/21/18 05:30 Hgb 7.7 GM/dL (11.7-16.9) L 10/21/18 05:30 Hct 24.8 % (35.4-49) L 10/21/18 05:30 MCV 95.5 fl (80-96) 10/21/18 05:30 MCHC 31.2 g/dl (32.0-35.9) L 10/21/18 05:30 RDW 18.2 % (11.9-15.9) H 10/21/18 05:30 Plt Count 103 K/MM3 (134-434) L 10/21/18 05:30 MPV 10.1 fl (7.5-11.1) 10/21/18 05:30 CMP Sodium 155 mmol/L (136-145) H 10/21/18 05:30 Potassium 4.3 mmol/L (3.5-5.1) 10/21/18 05:30 Chloride 122 mmol/L (98-107) H 10/21/18 05:30 Carbon Dioxide 31 mmol/L (21-32) 10/21/18 05:30 Anion Gap 1 MMOL/L (8-16) L 10/21/18 05:30 BUN 39 mg/dL (7-18) H 10/21/18 05:30 Creatinine 1.4 mg/dL (0.55-1.3) H 10/21/18 05:30 Creat Clearance w eGFR 48.76 (>60) 10/21/18 05:30 Calcium 8.0 mg/dL (8.5-10.1) L 10/21/18 05:30 Total Bilirubin 1.4 mg/dL (0.2-1) H 10/21/18 05:30 AST 23 U/L (15-37) 10/21/18 05:30 ALT 17 U/L (13-61) 10/21/18 05:30 Alkaline Phosphatase 122 U/L (45-117) H 10/21/18 05:30 Total Protein 5.3 g/dl (6.4-8.2) L 10/21/18 05:30 Albumin 2.3 g/dl (3.4-5.0) L 10/21/18 05:30 Active Medications Albuterol/Ipratropium (Duoneb -) 1 amp NEB Q4H PRN PRN Reason: SHORTNESS OF BREATH Chlorhexidine Gluconate (Hibiclens For Decolonization -) 1 applic TP HS [facility] Last Admin: 10/20/18 21:06 Dose: 1 applic Propofol (Diprivan -) 1,000,000 mcg in 100 mls @ 4.491 mls/hr IVPB TITR [facility]; Protocol Last Titration: 10/21/18 08:30 Dose: 0 mcg/kg/min, 0 mls/hr Ampicillin Sodium/Sulbactam (Sodium 1.5 gm/ Sodium Chloride) 100 mls @ 200 mls/ hr IVPB Q6H-IV [facility] Last Admin: 10/21/18 08:11 Dose: 200 mls/hr Insulin Aspart (Novolog Vial Sliding Scale -) 1 vial SQ Q4HPO [facility]; Protocol Last Admin: 10/21/18 06:36 Dose: 2 units Nystatin (Mycostatin Cream -) 1 applic TP BID [facility] Last Admin: 10/21/18 09:44 Dose: 1 applic Pantoprazole Sodium (Protonix Iv) 40 mg IVPUSH DAILY [facility] Last Admin: 10/21/18 09:43 Dose: 40 mg ASSESSMENT/PLAN: Patient is a 82 y/o male with a history of afib, HTN, DM, HFrEF w ICD, and AAA who is here for GI bleed. Neuro - intubated and sedated, for airway protection upon arrival - on Versed and Propofol - patient failed weaning trial, continues to be altered possibly 2/2 to hypernatremia - continue weaning trials Cardio - hx afib, restarted xarelto and carvedilol, amiodarone and rosuvastatin - hx AAA 4.8, f/u yearly imaging - Echo 10/13 EF: 40 -45% - hold po torsemide - ICD in place - lasix 40 one time given Pulm - intubated with IPPV - TV 500, R 20, O2 40%, PEEP 8 - CXR; infiltrates, pneumonitis vs aspiration pneumonia - f/u CXR - Chest CT: bilateral lower lobe consolidation/atelectasis - continue weaning trial daily GI - Upper GI bleed vs vomiting epistaxis - received 5 units PRBC - EGD: two shallow ulcers found and clotting in the fundus - protonix 40 daily - no further evidence of GI bleed - patient tolerating feeds Neprho - hold fluids, patient 3rd spacing - hypernatremia resolving - continue free water flushes 300 ml Q4 Heme - transfusion threshold 8 - received 5 units - hgb remaining stable - continue ac now that GI bleed resolved ID - possible PNA vs Pnuemonitis - continue Unasyn day 7 - febrile overnight, f/u blood cx, UCX: lactose fermenting, - Ua with 2+ LE, WBC 10, will send new ucx and change jameson - DC jameson - new consult for Dr Solo, discuss broadening antibiotic spectrum Endo - SS - 36 units in 24 hours FEN - intubated - monitor NA closely - on promote feeds - hold IV fluids - free water at 1600 daily Dispo: continue weaning trials Visit type - Emergency Visit Emergency Visit: No - New Patient This patient is new to me today: No - Critical Care Critical Care patient: Yes Total Critical Care Time (in minutes): 40 Critical Care Statement: The care of this patient involved high complexity decision making to prevent further life threatening deterioration of the patient 's condition and/or to evaluate & treat vital organ system(s) failure or risk of failure.
--- NOTE | 2018-10-21 14:09 | PROC ---
Procedure Note Procedure: ID CONSULT DICTATED FEVER ? LUNG SOURCE BIBASILAR PNEUMONIA RESP FAILURE AZOTEMIA S/P GI BLEED AWAIT REPEAT C/S [facility] [employer] ZOSYN/ VANCOMYCIN CRITICAL CARE TIME 35MIN
--- NOTE | 2018-10-21 14:19 | PN ---
Progress Note (short form) - Note Progress Note: ID CONSULT DICTATED FEVER/ LEUKOCYTOSIS ? LUNG SOURCE PROBABLE ASPIRATION PNEUMONIA RESPIRATORY FAILURE S/P GI BLEED AZOTEMIA AWAIT REPEAT BC [facility] ZOSYN/ VANCOMYCIN CRITICAL CARE TIME 35MIN
--- NOTE | 2018-10-21 14:28 | PN ---
Physical Exam: SUBJECTIVE: Patient seen and examined, intubated and sedated. OBJECTIVE: Vital Signs Period Temp Pulse Resp BP Sys/Lambert Pulse Ox Last 24 Hr 99.8 F-101.7 F 91-118 14-26 96-151/50-77 95-98 Intake & Output 10/18/18 10/19/18 10/20/18 10/21/18 23:59 23:59 23:59 23:59 Intake Total 3348.8 1861.8 1134.5 2532.4 Output Total 3700 2100 2900 1600 Balance -351.2 -238.2 -1765.5 932.4 Weight 310 lb 13.76 oz 301 lb 13.005 oz 303 lb 5.697 oz 303 lb General: intubated sedated anasarcic in bed CVS:S1S2 irregular Chest: limited exam, scattered rales Abdomen;Soft obese Extremities: anasarcic Laboratory Results - last 24 hr 10/18/18 10/20/18 10/20/18 09:14 15:02 19:10 WBC RBC Hgb Hct MCV MCH MCHC RDW Plt Count MPV Sodium Potassium Chloride Carbon Dioxide Anion Gap BUN Creatinine Creat Clearance w eGFR POC Glucometer 197 169 Random Glucose Calcium Phosphorus Magnesium Total Bilirubin AST ALT Alkaline Phosphatase Total Protein Albumin Blood Type A POSITIVE Antibody Screen Negative Crossmatch See Detail 10/20/18 10/21/18 10/21/18 21:09 02:50 05:30 WBC 13.0 H RBC 2.59 L Hgb 7.7 L Hct 24.8 L MCV 95.5 MCH 29.8 MCHC 31.2 L RDW 18.2 H Plt Count 103 L MPV 10.1 Sodium Potassium Chloride Carbon Dioxide Anion Gap BUN Creatinine Creat Clearance w eGFR POC Glucometer 182 204 Random Glucose Calcium Phosphorus Magnesium Total Bilirubin AST ALT Alkaline Phosphatase Total Protein Albumin Blood Type Antibody Screen Crossmatch 10/21/18 10/21/18 10/21/18 05:30 06:34 11:56 WBC RBC Hgb Hct MCV MCH MCHC RDW Plt Count MPV Sodium 155 H Potassium 4.3 Chloride 122 H Carbon Dioxide 31 Anion Gap 1 L BUN 39 H Creatinine 1.4 H Creat Clearance w eGFR 48.76 POC Glucometer 192 225 Random Glucose 194 H Calcium 8.0 L Phosphorus 3.2 Magnesium 3.0 H Total Bilirubin 1.4 H AST 23 ALT 17 Alkaline Phosphatase 122 H Total Protein 5.3 L Albumin 2.3 L Blood Type Antibody Screen Crossmatch Active Medications Generic Name Dose Route Start Last Admin Trade Name Rajesh PRN Reason Stop Dose Admin Albuterol/Ipratropium 1 amp 10/16/18 07:05 Duoneb - NEB Q4H PRN SHORTNESS OF BREATH Amiodarone HCl 400 mg 10/22/18 10:00 Cordarone - PO DAILY [facility] Atorvastatin Calcium 10 mg 10/21/18 22:00 Lipitor - PO HS [facility] Carvedilol 18.75 mg 10/21/18 22:00 Coreg - PO BID [facility] Chlorhexidine Gluconate 1 applic 10/15/18 22:00 10/20/18 21:06 Hibiclens For Decolonization - TP 1 applic HS [facility] Administration Propofol 1,000,000 mcg in 100 mls @ 4.491 mls/hr 10/15/18 12:00 10/21/18 08: 30 Diprivan - IVPB 0 mcg/kg/min TITR [facility] 0 mls/hr Titration Protocol 5 MCG/KG/MIN Piperacillin Sod/Tazobactam 50 mls @ 100 mls/hr 10/21/18 14:30 Sod 3.375 gm/ Dextrose IVPB Q8H-IV [facility] Protocol Vancomycin HCl 1,250 mg/ 250 mls @ 250 mls/2 hr 10/21/18 14:30 Dextrose IVPB Q24H [facility] Protocol Insulin Aspart 1 vial 10/17/18 14:00 10/21/18 12:01 Novolog Vial Sliding Scale - SQ 4 units Q4HPO [facility] Administration Protocol Nystatin 1 applic 10/15/18 22:00 10/21/18 09:44 Mycostatin Cream - TP 1 applic BID [facility] Administration Pantoprazole Sodium 40 mg 10/18/18 10:00 10/21/18 09:43 Protonix Iv IVPUSH 40 mg DAILY [facility] Administration Rivaroxaban 15 mg 10/22/18 10:00 Xarelto PO DAILY [facility] ASSESSMENT/PLAN: 82 yom with PMHx of chronic systolic HF, Paroxysmal VT s/p ICD, afib on xarelto , epistaxis, Ascending aortic aneurysm (5 cm), CONSTANTINO, HLD, admitted with coffee ground emesis and AMS. -Acute upper GI bleed s/p EGD with antral non bleeding Ulcer/Small clot in fundus without underlyling lesion/submucosal nodule -Acute blood loss anemia s/p 5 units PRBC -AMS, encephalopathy from above, suspect associated with electrolytes abnormalities -Severe hypernatremia (Free water deficit around 10L) -Suspected aspiration PNA -Acute systolic heart failure exacerbation -Atrial fibrillation on xarelto -Chronic systolic Heart failure -CONSTANTINO (refused CPAP) -h/o paroxysmal VT s/p ICD -Ascending aortic aneurysm (5.0 cm) -HLD -NIDDM Plan: Looks fluid overloaded, CXR worse. Free water via NG tube. IVF d/rohith. s/p lasix 40 mg IV x1 by ICU. Monitor h/h. Weaning trial per ICU. Continue to hold xarelto. IV Protonix, GI input noted, Renal /cardiology input noted. Continue tube feeds. Ongoing fevers, ID input noted. Zosyn/vancomcyin. Follow up cultures. Resume coreg/amiodarone as able. Diltiazem IV Prn for tachycardia. ISS DVTPPX with SCDs dispo ICU level of care Poor prognosis Palliative care consult to address overall goals of care. Plan discussed with Nursing, care co-ordinated with ICU team Total critical care time spent 38 min. Visit type - Emergency Visit Emergency Visit: Yes ED Registration Date: 10/15/18 Care time: The patient presented to the Emergency Department on the above date and was hospitalized for further evaluation of their emergent condition. - New Patient This patient is new to me today: No - Critical Care Critical Care patient: Yes Total Critical Care Time (in minutes): 38 Critical Care Statement: The care of this patient involved high complexity decision making to prevent further life threatening deterioration of the patient 's condition and/or to evaluate & treat vital organ system(s) failure or risk of failure.
[2018-10-21] MEDS ORDERED: PIPERACILLIN/TAZOBACTAM 3.375 GM VIAL IVPB ONE (14:53)
[2018-10-21] MEDS ORDERED: DEXTROSE 5%-WATER - 50 ML IVPB ONE (14:54)
[2018-10-21] MEDS: PIPERACILLIN/TAZOB 3.375 GM 3.375 GM in DEXTROSE 5%-WATER - 50 ML IVPB SCH (15:07)
[2018-10-21] MEDS: VANCOMYCIN HCL 1,250 MG in DEXTROSE 5%-WATER - 250 ML IVPB SCH (15:46)
--- NOTE | 2018-10-21 17:32 | CONS ---
DATE OF CONSULTATION: DATE OF DICTATION: 10/21/2018 INFECTIOUS DISEASE CONSULTATION HISTORY OF PRESENT ILLNESS: The patient is an 82-year-old male evaluated for fever. History was obtained from the chart, because he cannot give a history. He is presently intubated in the intensive care unit. The patient was admitted to the hospital on 10/15/2018 after being found poorly responsive in bed with frequent incontinence. Upon arrival, EMS reported patient was awake and alert. He was taken to the emergency room, where he developed hematemesis. He was prophylactically intubated. CAT scan of the head was performed and was negative for acute infarct or bleed. His clinical course was complicated by vomiting of bright red blood and anemia requiring transfusion of packed red blood cells. An EKG was performed and findings included linear erythema and the esophagus secondary to NG tube trauma, small clots in the gastric fundus, small clean based ulcer in the gastric antrum, and a normal duodenum. His hospital course has been complicated by persistent lethargy despite the withdrawal of sedation. In addition, he has remained vent dependent. He was treated with a course of Unasyn for presumed aspiration pneumonia. Over the past 24 hours he has had recurrent fever. No reports of shaking chills, labored breathing, recurrent vomiting. He has a Villa catheter in place. PAST MEDICAL HISTORY: Positive for noninsulin dependent diabetes mellitus, congestive heart failure, atrial fibrillation thoracic aortic aneurysm, coronary artery disease, congestive heart failure, hypertension, hyperlipidemia, obstructive sleep apnea, diverticulosis, diabetes mellitus. PAST SURGICAL HISTORY: Status post defibrillator, hernia repair, TURP. ALLERGIES: BENAZEPRIL. MEDICATION: Include Lipitor, Coreg, Januvia, Protonix, Xarelto, amiodarone, glyburide, Demadex. SOCIAL HISTORY: He resides at home in the community. He is a nonsmoker, nondrinker. SYSTEMS REVIEW: Neurologic: As per HPI. Cardiac: No reports of chest pain. No palpitations. Respiratory: As per HPI. Gastrointestinal: As per HPI. Genitourinary: Negative for urinary tract infection. LABORATORY DATA: White count 13.0, hematocrit 24.8, platelets 103, BUN 39, creatinine 1.4. Sodium 155. Urinalysis, 10 white cells. Chest x-ray shows a markedly enlarged heart with increased markings at the bases bilaterally. Blood cultures preliminarily negative. Urine culture negative. Sputum culture growing a mini lactose beater worker helper and yeast-like organisms. PHYSICAL EXAMINATION: General: On exam, he is not responsive on the ventilator. Vital signs: Temperature 100.2, T-max 101.7, blood pressure 136/69, pulse 116, respirations 26 per minute. Patient is orally intubated. Cardiovascular: Heart sounds S1, S2. Tachycardic. Lungs: Air entry bilaterally. Abdomen: Obese. Soft, nontender. Extremities: Positive for edema. IMPRESSION: 1. Recurrent fever, possible pulmonary source. 2. Respiratory failure. 3. Probable aspiration pneumonia. 4. Fever, leukocytosis. 5. Status post gastrointestinal bleed. 6. Hypernatremia. 7. Azotemia. Await repeat culture results. Would broaden antimicrobial coverage with Zosyn and vancomycin. Continue ventilatory and hemodynamic support. Prognosis is guarded. Critical care time spent, 35 minutes. CALLIE TEMPLETON M.D. [id number]
[2018-10-21] MEDS ORDERED: dilTIAZem HCL 50 MG/10 ML - 10 ML VIAL IVPUSH ONE (19:27)
[2018-10-21] MEDS ORDERED: dilTIAZem HCL 50 MG/10 ML - 10 ML VIAL IVPUSH PRN (19:31)
[2018-10-21] MEDS: ACETAMINOPHEN 650 MG/20.3 ML ORAL SOLUTION (CUPS) PO PRN (20:26)
[2018-10-21] MEDS ORDERED: CARVEDILOL 6.25 MG TABLET (FP) PO SCH (22:00)
[2018-10-21] MEDS ORDERED: ATORVASTATIN CA 80 MG TABLET (FP) PO SCH (22:00)
[2018-10-21] MEDS: CHLORHEXIDINE GLUCONATE 4% CLEANSER FOR DECOLONIZATION TP SCH (22:22)
[2018-10-22] MEDS ORDERED: PIPERACILLIN/TAZOBACTAM 3.375 GM VIAL IVPB ONE ×3 (01:39→11:26)
[2018-10-22] MEDS ORDERED: DEXTROSE 5%-WATER - 50 ML IVPB ONE ×3 (01:39→11:26)
[2018-10-22] MEDS: ACETAMINOPHEN 650 MG/20.3 ML ORAL SOLUTION (CUPS) PO PRN ×2 (01:41→09:46)
[2018-10-22] MEDS: PIPERACILLIN/TAZOB 3.375 GM 3.375 GM in DEXTROSE 5%-WATER - 50 ML IVPB SCH ×4 (01:42→17:00)
[2018-10-22] MEDS ORDERED: SODIUM CHLORIDE 500 ML IV STA (02:52)
--- NOTE | 2018-10-22 02:58 | HOSP ---
Subjective - Review of Symptoms Events since last encounter: Patient is hypotensive and MAP consistently below 60. Informed by RN that propofol has been titrated down but BP still low. Feed was stopped 2 hours ago because of high residual. Patient is clinically fluid overload. - conservative fluid challenge with 500cc - start vasopressin if unresponsive to fluid - will re-assess Physical Examination Vital Signs: Vital Signs Temperature 37.9 C H 10/21/18 20:00 Pulse Rate 83 10/22/18 02:00 Respiratory Rate 24 H 10/22/18 02:00 Blood Pressure 82/52 L 10/22/18 02:00 O2 Sat by Pulse Oximetry (%) 95 10/21/18 21:00 Labs: CBC, BMP 10/21/18 05:30 10/21/18 05:30 Visit type - Emergency Visit Emergency Visit: No - New Patient This patient is new to me today: No - Critical Care Critical Care patient: Yes Total Critical Care Time (in minutes): 35 Critical Care Statement: The care of this patient involved high complexity decision making to prevent further life threatening deterioration of the patient 's condition and/or to evaluate & treat vital organ system(s) failure or risk of failure.
[2018-10-22] MEDS ORDERED: VASOPRESSIN 50 UNITS in SODIUM CHLORIDE 97.5 ML IVPB SCH (03:15)
[2018-10-22] MEDS: INSULIN SLIDING SCALE (NOVOLOG) 1 VIAL SQ SCH ×6 (04:06→22:09)
[2018-10-22 06:52] LABS: HEMATOCRIT 24.9 % (35.4-49); HEMOGLOBIN 7.7 GM/dL (11.7-16.9); MCH 29.9 pg (25.7-33.7); MEAN CELL VOLUME 96.5 fl (80-96); MEAN PLT VOLUME 10.9 fl (7.5-11.1); PLATELET COUNT 105 K/MM3 (134-434); RBC 2.58 M/mm3 (4.00-5.60); RDW 18.7 % (11.9-15.9); WHITE BLOOD COUNT 13.4 K/mm3 (4.0-10.0)
[2018-10-22 06:55] LABS: ALBUMIN 2.2 g/dl (3.4-5.0); ALK PHOS 138 U/L (45-117); ANION GAP 1 MMOL/L (8-16); BILIRUBIN,TOTAL 1.6 mg/dL (0.2-1); BLOOD UREA NITROGEN 52 mg/dL (7-18); CALCIUM 7.6 mg/dL (8.5-10.1); CHLORIDE 120 mmol/L (98-107); CO2 32 mmol/L (21-32); GLUCOSE,RANDOM 248 mg/dL (74-106); MAGNESIUM 2.9 mg/dL (1.8-2.4); PHOSPHOROUS 4.1 mg/dL (2.5-4.9); POTASSIUM 4.9 mmol/L (3.5-5.1); SGOT/AST 25 U/L (15-37); SGPT/ALT 17 U/L (13-61); SODIUM 153 mmol/L (136-145); TOT PROT 5.2 g/dl (6.4-8.2)
[2018-10-22] MEDS ORDERED: PT OWN MED DRAWER 7, Y5N ONE (08:26)
[2018-10-22] MEDS: PROPOFOL 1,000,000 MCG/100 ML VIAL IVPB SCH ×3 (08:29→22:13)
--- NOTE | 2018-10-22 08:50 | PN ---
Progress Note, Physician Chief Complaint: febrile Intubated BP is low History of Present Illness: TELE: rate controlled AF - Current Medication List Current Medications: Active Medications Acetaminophen (Tylenol Oral Solution -) 650 mg PO Q6H PRN PRN Reason: FEVER Last Admin: 10/22/18 01:41 Dose: 650 mg Albuterol/Ipratropium (Duoneb -) 1 amp NEB Q4H PRN PRN Reason: SHORTNESS OF BREATH Amiodarone HCl (Cordarone -) 400 mg PO DAILY [facility] Atorvastatin Calcium (Lipitor -) 10 mg PO HS [facility] Last Admin: 10/21/18 22:23 Dose: 10 mg Carvedilol (Coreg -) 18.75 mg PO BID [facility] Last Admin: 10/21/18 22:21 Dose: 18.75 mg Chlorhexidine Gluconate (Hibiclens For Decolonization -) 1 applic TP HS [facility] Last Admin: 10/21/18 22:22 Dose: 1 applic Diltiazem HCl (Cardizem Injection -) 20 mg IVPUSH Q4H PRN PRN Reason: TACHYCARDIA Propofol (Diprivan -) 1,000,000 mcg in 100 mls @ 4.491 mls/hr IVPB TITR [facility]; Protocol Last Admin: 10/22/18 08:29 Dose: 7 mcg/kg/min, 6.287 mls/hr Piperacillin Sod/Tazobactam (Sod 3.375 gm/ Dextrose) 50 mls @ 100 mls/hr IVPB Q8H-IV [facility]; Protocol Last Admin: 10/22/18 01:42 Dose: 100 mls/hr Vancomycin HCl 1,250 mg/ (Dextrose) 250 mls @ 166.667 mls/hr IVPB Q24H [facility]; Protocol Last Admin: 10/21/18 15:46 Dose: 166.667 mls/hr Vasopressin 50 units/ Sodium (Chloride) 100 mls @ 4 mls/hr IVPB ASDIR [facility]; Protocol Last Admin: 10/22/18 08:42 Dose: Not Given Insulin Aspart (Novolog Vial Sliding Scale -) 1 vial SQ Q4HPO [facility]; Protocol Last Admin: 10/22/18 06:47 Dose: 4 units Nystatin (Mycostatin Cream -) 1 applic TP BID [facility] Last Admin: 10/21/18 22:23 Dose: 1 applic Pantoprazole Sodium (Protonix Iv) 40 mg IVPUSH DAILY [facility] Last Admin: 10/21/18 09:43 Dose: 40 mg - Objective Vital Signs: Vital Signs Temperature 101.4 F H 10/22/18 07:29 Pulse Rate 86 10/22/18 07:29 Respiratory Rate 14 10/22/18 07:50 Blood Pressure 86/48 L 10/22/18 07:29 O2 Sat by Pulse Oximetry (%) 93 L 10/22/18 07:50 Constitutional: Yes: Other (intubated) Cardiovascular: Yes: Pulse Irregular Respiratory: Yes: Other (= breath sounds b/l) Gastrointestinal: Yes: Soft, Abdomen, Obese Edema: Yes Edema: LLE: 1+ (venous stasis), RLE: 1+ (venous stasis) Neurological: Yes: Other (sedated on vent) Labs: CBC, BMP 10/22/18 05:30 10/22/18 05:30 INR, PTT INR 1.28 (0.83-1.09) H 10/17/18 05:30 - ....Imaging EKG: Image Reviewed Assessment/Plan Assessment/Plan 82M h/o chronic systolic HF, ICD, afib on xarelto, epistaxis p/w coffee ground emesis, alt mental status 1. Coffee ground emesis/GIB: - transfuse per critical care - manage per GI 2. AF: - on carvedilol, digoxin at home: Holding Carvedilol in the setting of hypotension. - history of epistaxis requiring transfusions, cauterization - holding xarelto 3. Paroxysmal VT, s/p ICD: - multiple prior episodes, prior shocks - monitoring on tele -Cont amio 4. Chronic systolic HF: - EF 40-45%echo 09/2017 - holding diuretics in current setting of GIB 5. Aneurysm of ascending aorta: - prior reports 5.0 cm, yearly imaging with CT chest and consideration for surgery if >6 cm - 4.8 cm here, no dissection 6. CONSTANTINO: - refuses CPAP at home 7.HLD: - on statin at home, holding while NPO 8. Fever: -fever work up as per Critical Care
--- NOTE | 2018-10-22 08:53 | PN ---
Progress Note (short form) - Note Progress Note: remains intubated remains febrile no pressors bp is low Vital Signs Period Temp Pulse Resp BP Sys/Lambert Pulse Ox Last 24 Hr 98 F-101.9 F 81-122 14-26 82-154/48-72 93-96 cor-rrr lungs decreased bs at bases abd soft,nt ext +edema CBC, BMP 10/22/18 05:30 10/22/18 05:30 Microbiology 10/19/18 12:30 Blood - Peripheral Venous Blood Culture - Preliminary NO GROWTH OBTAINED AFTER 48 HOURS, INCUBATION TO CONTINUE FOR 3 DAYS. 10/19/18 12:40 Blood - Peripheral Venous Blood Culture - Preliminary NO GROWTH OBTAINED AFTER 48 HOURS, INCUBATION TO CONTINUE FOR 3 DAYS. 10/20/18 05:30 Sputum - Endotrachea Suction/Ventilator Gram Stain - Final 10/20/18 05:30 Sputum - Endotrachea Suction/Ventilator Sputum Culture - Preliminary Lactose Fermenting Neg Bacilli Yeast Like Organism 10/19/18 17:30 Urine - Urine [place] Urine Culture - Final NO GROWTH OBTAINED 10/15/18 10:00 Blood - Peripheral Venous Blood Culture - Final NO GROWTH AFTER 5 DAYS INCUBATION 10/15/18 10:30 Blood - Peripheral Venous Blood Culture - Final NO GROWTH AFTER 5 DAYS INCUBATION 10/15/18 10:40 Urine - Urine - Catheterized Urine Culture - Final NO GROWTH OBTAINED Current Medications Acetaminophen (Tylenol Oral Solution -) 650 mg PO Q6H PRN PRN Reason: FEVER Last Admin: 10/22/18 01:41 Dose: 650 mg Albuterol/Ipratropium (Duoneb -) 1 amp NEB Q4H PRN PRN Reason: SHORTNESS OF BREATH Amiodarone HCl (Cordarone -) 400 mg PO DAILY [facility] Atorvastatin Calcium (Lipitor -) 10 mg PO HS [facility] Last Admin: 10/21/18 22:23 Dose: 10 mg Carvedilol (Coreg -) 18.75 mg PO BID [facility] Last Admin: 10/21/18 22:21 Dose: 18.75 mg Chlorhexidine Gluconate (Hibiclens For Decolonization -) 1 applic TP HS [facility] Last Admin: 10/21/18 22:22 Dose: 1 applic Diltiazem HCl (Cardizem Injection -) 20 mg IVPUSH Q4H PRN PRN Reason: TACHYCARDIA Propofol (Diprivan -) 1,000,000 mcg in 100 mls @ 4.491 mls/hr IVPB TITR [facility]; Protocol Last Admin: 10/22/18 08:29 Dose: 7 mcg/kg/min, 6.287 mls/hr Piperacillin Sod/Tazobactam (Sod 3.375 gm/ Dextrose) 50 mls @ 100 mls/hr IVPB Q8H-IV [facility]; Protocol Last Admin: 10/22/18 01:42 Dose: 100 mls/hr Vancomycin HCl 1,250 mg/ (Dextrose) 250 mls @ 166.667 mls/hr IVPB Q24H [facility]; Protocol Last Admin: 10/21/18 15:46 Dose: 166.667 mls/hr Vasopressin 50 units/ Sodium (Chloride) 100 mls @ 4 mls/hr IVPB ASDIR [facility]; Protocol Last Admin: 10/22/18 08:42 Dose: Not Given Insulin Aspart (Novolog Vial Sliding Scale -) 1 vial SQ Q4HPO [facility]; Protocol Last Admin: 10/22/18 06:47 Dose: 4 units Nystatin (Mycostatin Cream -) 1 applic TP BID [facility] Last Admin: 10/21/18 22:23 Dose: 1 applic Pantoprazole Sodium (Protonix Iv) 40 mg IVPUSH DAILY [facility] Last Admin: 10/21/18 09:43 Dose: 40 mg a/p fevers started vancomycin and zosyn yesterday ?pneumonia-aspiration respiratory failure GI bleed doing poorly f/u cultures for transfusion today d/w ICU team
[2018-10-22] MEDS: PANTOPRAZOLE SODIUM 40 MG VIAL IVPUSH SCH (09:12)
[2018-10-22] MEDS: AMIODARONE HCL 200 MG TABLET (FP) PO SCH (09:13)
[2018-10-22] MEDS: NYSTATIN 100,000 UNIT/GM TOPICAL CREAM 15 GM TUBE TP SCH ×2 (09:13→21:56)
--- NOTE | 2018-10-22 09:59 | PN ---
Teaching Attending Note Name of Resident: Aamir Ba ATTENDING PHYSICIAN STATEMENT I saw and evaluated the patient. I reviewed the resident's note and discussed the case with the resident. I agree with the resident's findings and plan as documented. SUBJECTIVE: Patient seen and examined in the ICU. Intubated and sedated on AC Mode of vent , 40%. Marginal BP overnight requiring IVF boluses. Consent taken from NOK for TLC placement. No occult bleeding. Intake & Output 10/19/18 10/20/18 10/21/18 10/22/18 23:59 23:59 23:59 23:59 Intake Total 1861.8 1134.5 4910.4 Output Total 2100 2900 2300 Balance -238.2 -1765.5 2610.4 Weight 301 lb 13.005 oz 303 lb 5.697 oz 303 lb 310 lb 6.574 oz Last Vital Signs Temp Pulse Resp BP Pulse Ox 100.8 F H 78 20 89/59 L 93 L 10/22/18 09:43 10/22/18 09:43 10/22/18 09:43 10/22/18 09:43 10/22/18 07:50 Active Medications Acetaminophen (Tylenol Oral Solution -) 650 mg PO Q6H PRN PRN Reason: FEVER Last Admin: 10/22/18 09:46 Dose: 650 mg Albuterol/Ipratropium (Duoneb -) 1 amp NEB Q4H PRN PRN Reason: SHORTNESS OF BREATH Amiodarone HCl (Cordarone -) 400 mg PO DAILY [facility] Last Admin: 10/22/18 09:13 Dose: 400 mg Atorvastatin Calcium (Lipitor -) 10 mg PO HS [facility] Last Admin: 10/21/18 22:23 Dose: 10 mg Carvedilol (Coreg -) 18.75 mg PO BID [facility] Last Admin: 10/21/18 22:21 Dose: 18.75 mg Chlorhexidine Gluconate (Hibiclens For Decolonization -) 1 applic TP [facility] Last Admin: 10/21/18 22:22 Dose: 1 applic Diltiazem HCl (Cardizem Injection -) 20 mg IVPUSH Q4H PRN PRN Reason: TACHYCARDIA Propofol (Diprivan -) 1,000,000 mcg in 100 mls @ 4.491 mls/hr IVPB TITR [facility]; Protocol Last Admin: 10/22/18 08:29 Dose: 7 mcg/kg/min, 6.287 mls/hr Piperacillin Sod/Tazobactam (Sod 3.375 gm/ Dextrose) 50 mls @ 100 mls/hr IVPB Q8H-IV [facility]; Protocol Last Admin: 10/22/18 09:12 Dose: 100 mls/hr Vancomycin HCl 1,250 mg/ (Dextrose) 250 mls @ 166.667 mls/hr IVPB Q24H [facility]; Protocol Last Admin: 10/21/18 15:46 Dose: 166.667 mls/hr Vasopressin 50 units/ Sodium (Chloride) 100 mls @ 4 mls/hr IVPB [facility]; Protocol Last Admin: 10/22/18 08:42 Dose: Not Given Insulin Aspart (Novolog Vial Sliding Scale -) 1 vial SQ Q4HPO [facility]; Protocol Last Admin: 10/22/18 09:56 Dose: 4 units Nystatin (Mycostatin Cream -) 1 applic TP BID [facility] Last Admin: 10/22/18 09:13 Dose: 1 applic Pantoprazole Sodium (Protonix Iv) 40 mg IVPUSH DAILY [facility] Last Admin: 10/22/18 09:12 Dose: 40 mg Gen; Intubated sedated HEENT: orally intubated PULM: diminished bases, no wheezes CV: tachy, irreg ABD: soft, +BS EXT: venous stasis, pitting and weeping LE edema NEURO: sedated Laboratory Results - last 24 hr 10/18/18 10/21/18 10/21/18 09:14 11:56 15:11 WBC RBC Hgb Hct MCV MCH MCHC RDW Plt Count MPV Sodium Potassium Chloride Carbon Dioxide Anion Gap BUN Creatinine Creat Clearance w eGFR POC Glucometer 225 250 Random Glucose Calcium Phosphorus Magnesium Total Bilirubin AST ALT Alkaline Phosphatase Total Protein Albumin Blood Type A POSITIVE Antibody Screen Negative Crossmatch See Detail 10/21/18 10/21/18 10/22/18 17:13 21:55 03:51 WBC RBC Hgb Hct MCV MCH MCHC RDW Plt Count MPV Sodium Potassium Chloride Carbon Dioxide Anion Gap BUN Creatinine Creat Clearance w eGFR POC Glucometer 249 266 242 Random Glucose Calcium Phosphorus Magnesium Total Bilirubin AST ALT Alkaline Phosphatase Total Protein Albumin Blood Type Antibody Screen Crossmatch 10/22/18 10/22/18 10/22/18 05:30 05:30 06:05 WBC 13.4 H RBC 2.58 L Hgb 7.7 L Hct 24.9 L MCV 96.5 H MCH 29.9 MCHC 31.0 L RDW 18.7 H Plt Count 105 L MPV 10.9 Sodium 153 H Potassium 4.9 Chloride 120 H Carbon Dioxide 32 Anion Gap 1 L BUN 52 H Creatinine 2.0 H Creat Clearance w eGFR 32.31 POC Glucometer 237 Random Glucose 248 H Calcium 7.6 L Phosphorus 4.1 Magnesium 2.9 H Total Bilirubin 1.6 H AST 25 ALT 17 Alkaline Phosphatase 138 H Total Protein 5.2 L Albumin 2.2 L Blood Type Antibody Screen Crossmatch 10/22/18 10/22/18 08:20 08:20 WBC RBC Hgb Hct MCV MCH MCHC RDW Plt Count MPV Sodium Potassium Chloride Carbon Dioxide Anion Gap BUN Creatinine Creat Clearance w eGFR POC Glucometer Random Glucose Calcium Phosphorus Magnesium Total Bilirubin AST ALT Alkaline Phosphatase Total Protein Albumin Blood Type A POSITIVE Cancelled Antibody Screen Negative Cancelled Crossmatch See Detail IMP: Acute Respiratory Failure UGIB CHF PPM/AICD RENEA AAA Acute blood loss anemia HTN DM CH AICD/PPM Atrial fibrillation on eliquis (?) Aspiration Pneumonitis TLC placement Check CVP IVF guided by CVP Follow CBC Normal transfusion threshold: Hgb 8 SCDs Hold diuresis today Monitor off sedation Enteral feeds ABX coverage Wean trials as tolerated as mental status improves Dr Saini Critical care time spent in reviewing chart, evaluating patient and formulating plan - 36 minutes
[2018-10-22] MEDS ORDERED: RIVAROXABAN 15 MG TABLET PO SCH (10:00)
--- NOTE | 2018-10-22 10:05 | PN ---
Progress Note, Physician History of Present Illness: intubated, sedated, minimally responsive to stimuli hypotensive overnight, was given fluid boluses overnight with some stablization , vasopression ordered but not given. - Current Medication List Current Medications: Active Medications Acetaminophen (Tylenol Oral Solution -) 650 mg PO Q6H PRN PRN Reason: FEVER Last Admin: 10/22/18 09:46 Dose: 650 mg Albuterol/Ipratropium (Duoneb -) 1 amp NEB Q4H PRN PRN Reason: SHORTNESS OF BREATH Amiodarone HCl (Cordarone -) 400 mg PO DAILY [facility] Last Admin: 10/22/18 09:13 Dose: 400 mg Atorvastatin Calcium (Lipitor -) 10 mg PO HS [facility] Last Admin: 10/21/18 22:23 Dose: 10 mg Carvedilol (Coreg -) 18.75 mg PO BID [facility] Last Admin: 10/21/18 22:21 Dose: 18.75 mg Chlorhexidine Gluconate (Hibiclens For Decolonization -) 1 applic TP HS [facility] Last Admin: 10/21/18 22:22 Dose: 1 applic Diltiazem HCl (Cardizem Injection -) 20 mg IVPUSH Q4H PRN PRN Reason: TACHYCARDIA Propofol (Diprivan -) 1,000,000 mcg in 100 mls @ 4.491 mls/hr IVPB TITR [facility]; Protocol Last Admin: 10/22/18 08:29 Dose: 7 mcg/kg/min, 6.287 mls/hr Piperacillin Sod/Tazobactam (Sod 3.375 gm/ Dextrose) 50 mls @ 100 mls/hr IVPB Q8H-IV [facility]; Protocol Last Admin: 10/22/18 09:12 Dose: 100 mls/hr Vancomycin HCl 1,250 mg/ (Dextrose) 250 mls @ 166.667 mls/hr IVPB Q24H [facility]; Protocol Last Admin: 10/21/18 15:46 Dose: 166.667 mls/hr Vasopressin 50 units/ Sodium (Chloride) 100 mls @ 4 mls/hr IVPB [facility]; Protocol Last Admin: 10/22/18 08:42 Dose: Not Given Insulin Aspart (Novolog Vial Sliding Scale -) 1 vial SQ Q4HPO [facility]; Protocol Last Admin: 10/22/18 09:56 Dose: 4 units Nystatin (Mycostatin Cream -) 1 applic TP BID [facility] Last Admin: 10/22/18 09:13 Dose: 1 applic Pantoprazole Sodium (Protonix Iv) 40 mg IVPUSH DAILY [facility] Last Admin: 10/22/18 09:12 Dose: 40 mg - Objective Vital Signs: Vital Signs Temperature 100.8 F H 10/22/18 09:43 Pulse Rate 78 10/22/18 09:43 Respiratory Rate 20 10/22/18 09:43 Blood Pressure 89/59 L 10/22/18 09:43 O2 Sat by Pulse Oximetry (%) 93 L 10/22/18 07:50 Labs: CBC, BMP 10/22/18 05:30 10/22/18 05:30 INR, PTT INR 1.28 (0.83-1.09) H 10/17/18 05:30 Assessment/Plan 82 yr man with HTN, DM, CHF s/p AICD, AAA, atrial fibrillation on xarelto, brought in for AMS and hematemesis s/p endoscopy without acute source of bleeding. - Neurological - intubated and sedated on versed and propofol - poorly responsive, given hypotension, and edema, will trial wean tomorrow when more stable - Cardiovascular - hypotensive overnight, central line placed today for CVP monitoring - goal 8 - holding carvidilol due to hypotension - afib; xarelto to be held until h/h stabilizes - Respiratory intubated Vent: 500/14/40%/5 - Renal - hypernatremia - free water flushes via OGT 1600cc/day to address hyponatremia, defer IVF for now due to increasing dependent edema - Fluids, electrolytes, nutrition (FEN) - Infectious disease - Hematology - Gastrointestinal - Endocrine - Psychiatric - Prophylaxis
--- NOTE | 2018-10-22 10:58 | PROC ---
Procedure Note Procedure: Internal Jugular Central Line Procedure Note INDICATION: Requiring multiple medications with potential to likely begin vasoactive medications PROCEDURE PHOTOGRAPHIC REPRODUCTION TECHNICIAN: Aamir Ba M.D. PGY1 ATTENDING PHYSICIAN: Dr. Saini In Attendance (Y/N) Y CONSENT: Consent was obtained from pt's son, Manjinder Steven, via telephone prior to the procedure. Indications, risks, and benefits were explained at length. PROCEDURE SUMMARY: A time out was performed. My hands were washed immediately prior to the procedure. I wore a surgical cap, mask with protective eyewear, full gown and sterile gloves throughout the procedure. The patient was placed in supine position. LEFT / RIGHT chest region was prepped using chlorhexidine scrub and draped in sterile fashion using a surgical drape. The medial and lateral heads of the sternocleidomastoid muscle were identified as was the carotid pulse. The Internal Jugular vein was identified using the ultrasound. Anesthesia was achieved over the vein using 1% lidocaine. Using real-time out of plane guidance , the introducer needle was inserted into the Internal Jugular vein under direct ultrasound visualization. Venous blood was withdrawn. The syringe was removed and a guidewire was advanced into the introducer needle. The guidewire was visualized in the Internal Jugular Vein by ultrasound. A small incision was made at the skin surface with a scalpel and the introducer needle was exchanged for a dilator over the guidewire. After appropriate dilation was obtained, the dilator was exchanged over the wire for a triple lumen central venous catheter. The wire was removed and the catheter was sutured in place at 15 cm. A biopatch and sterile tegaderm was placed over the catheter at the insertion site. The patient tolerated the procedure without any hemodynamic compromise. At time of procedure completion, all ports aspirated and flushed properly. Post-procedure chest x-ray is pending at this time. Estimated blood loss is 5cc.
[2018-10-22] MEDS ORDERED: TRIPLE LUMEN FLUSH 4 ML ML IVPUSH PRN (11:09)
--- NOTE | 2018-10-22 12:07 | PN ---
Physical Exam: SUBJECTIVE: Patient seen and examined, intubated sedated. OBJECTIVE: Vital Signs Period Temp Pulse Resp BP Sys/Lambert Pulse Ox Last 24 Hr 98 F-101.9 F 78-122 14-209 82-154/47-72 93-96 Intake & Output 10/19/18 10/20/18 10/21/18 10/22/18 23:59 23:59 23:59 23:59 Intake Total 1861.8 1134.5 4910.4 300 Output Total 2100 2900 2300 Balance -238.2 -1765.5 2610.4 300 Weight 301 lb 13.005 oz 303 lb 5.697 oz 303 lb 310 lb 6.574 oz General: intubated sedated anasarcic in bed CVS:S1S2 irregular Chest: limited exam, scattered rales Abdomen;Soft obese Extremities: anasarcic Laboratory Results - last 24 hr 10/18/18 10/21/18 10/21/18 09:14 15:11 17:13 WBC RBC Hgb Hct MCV MCH MCHC RDW Plt Count MPV Sodium Potassium Chloride Carbon Dioxide Anion Gap BUN Creatinine Creat Clearance w eGFR POC Glucometer 250 249 Random Glucose Calcium Phosphorus Magnesium Total Bilirubin AST ALT Alkaline Phosphatase Total Protein Albumin Blood Type A POSITIVE Antibody Screen Negative Crossmatch See Detail 10/21/18 10/22/18 10/22/18 21:55 03:51 05:30 WBC 13.4 H RBC 2.58 L Hgb 7.7 L Hct 24.9 L MCV 96.5 H MCH 29.9 MCHC 31.0 L RDW 18.7 H Plt Count 105 L MPV 10.9 Sodium Potassium Chloride Carbon Dioxide Anion Gap BUN Creatinine Creat Clearance w eGFR POC Glucometer 266 242 Random Glucose Calcium Phosphorus Magnesium Total Bilirubin AST ALT Alkaline Phosphatase Total Protein Albumin Blood Type Antibody Screen Crossmatch 10/22/18 10/22/18 10/22/18 05:30 06:05 08:20 WBC RBC Hgb Hct MCV MCH MCHC RDW Plt Count MPV Sodium 153 H Potassium 4.9 Chloride 120 H Carbon Dioxide 32 Anion Gap 1 L BUN 52 H Creatinine 2.0 H Creat Clearance w eGFR 32.31 POC Glucometer 237 Random Glucose 248 H Calcium 7.6 L Phosphorus 4.1 Magnesium 2.9 H Total Bilirubin 1.6 H AST 25 ALT 17 Alkaline Phosphatase 138 H Total Protein 5.2 L Albumin 2.2 L Blood Type A POSITIVE Antibody Screen Negative Crossmatch See Detail 10/22/18 10/22/18 08:20 09:56 WBC RBC Hgb Hct MCV MCH MCHC RDW Plt Count MPV Sodium Potassium Chloride Carbon Dioxide Anion Gap BUN Creatinine Creat Clearance w eGFR POC Glucometer 238 Random Glucose Calcium Phosphorus Magnesium Total Bilirubin AST ALT Alkaline Phosphatase Total Protein Albumin Blood Type Cancelled Antibody Screen Cancelled Crossmatch Active Medications Generic Name Dose Route Start Last Admin Trade Name Freq PRN Reason Stop Dose Admin Acetaminophen 650 mg 10/21/18 19:32 10/22/18 09:46 Tylenol Oral Solution - PO 650 mg Q6H PRN Administration FEVER Albuterol/Ipratropium 1 amp 10/16/18 07:05 Duoneb - NEB Q4H PRN SHORTNESS OF BREATH Amiodarone HCl 400 mg 10/22/18 10:00 10/22/18 09:13 Cordarone - PO 400 mg DAILY [facility] Administration Atorvastatin Calcium 10 mg 10/21/18 22:00 10/21/18 22:23 Lipitor - PO 10 mg HS [facility] Administration Carvedilol 18.75 mg 10/21/18 22:00 10/21/18 22:21 Coreg - PO 18.75 mg BID [facility] Administration Chlorhexidine Gluconate 1 applic 10/15/18 22:00 10/21/18 22:22 Hibiclens For Decolonization - TP 1 applic HS [facility] Administration Diltiazem HCl 20 mg 10/21/18 19:31 Cardizem Injection - IVPUSH Q4H PRN TACHYCARDIA IV Flush 4 ml 10/22/18 11:09 Triple Lumen Flush IVPUSH PRN PRN Protocol Propofol 1,000,000 mcg in 100 mls @ 4.491 mls/hr 10/15/18 12:00 10/22/18 08: 29 Diprivan - IVPB 7 mcg/kg/min TITR [facility] 6.287 mls/hr Administration Protocol 5 MCG/KG/MIN Piperacillin Sod/Tazobactam 50 mls @ 100 mls/hr 10/21/18 14:30 10/22/18 09:12 Sod 3.375 gm/ Dextrose IVPB 100 mls/hr Q8H-IV [facility] Administration Protocol Vancomycin HCl 1,250 mg/ 250 mls @ 166.667 mls/hr 10/21/18 15:00 10/21/18 15: 46 Dextrose IVPB 166.667 mls/hr Q24H [facility] Administration Protocol Vasopressin 50 units/ Sodium 100 mls @ 4 mls/hr 10/22/18 03:15 10/22/18 08:42 Chloride IVPB Not Given ASDIR [facility] Protocol 2 UNITS/HR Insulin Aspart 1 vial 10/17/18 14:00 10/22/18 09:56 Novolog Vial Sliding Scale - SQ 4 units Q4HPO [facility] Administration Protocol Nystatin 1 applic 10/15/18 22:00 10/22/18 09:13 Mycostatin Cream - TP 1 applic BID [facility] Administration Pantoprazole Sodium 40 mg 10/18/18 10:00 10/22/18 09:12 Protonix Iv IVPUSH 40 mg DAILY [facility] Administration Microbiology 10/20/18 05:30 Sputum - Endotrachea Suction/Ventilator Gram Stain - Final 10/20/18 05:30 Sputum - Endotrachea Suction/Ventilator Sputum Culture - Final Escherichia Coli Yeast Like Organism 10/19/18 12:30 Blood - Peripheral Venous Blood Culture - Preliminary NO GROWTH OBTAINED AFTER 48 HOURS, INCUBATION TO CONTINUE FOR 3 DAYS. 10/19/18 12:40 Blood - Peripheral Venous Blood Culture - Preliminary NO GROWTH OBTAINED AFTER 48 HOURS, INCUBATION TO CONTINUE FOR 3 DAYS. 10/19/18 17:30 Urine - Urine [place] Urine Culture - Final NO GROWTH OBTAINED 10/15/18 10:00 Blood - Peripheral Venous Blood Culture - Final NO GROWTH AFTER 5 DAYS INCUBATION 10/15/18 10:30 Blood - Peripheral Venous Blood Culture - Final NO GROWTH AFTER 5 DAYS INCUBATION 10/15/18 10:40 Urine - Urine - Catheterized Urine Culture - Final NO GROWTH OBTAINED ASSESSMENT/PLAN: 82 yom with PMHx of chronic systolic HF, Paroxysmal VT s/p ICD, afib on xarelto , epistaxis, Ascending aortic aneurysm (5 cm), CONSTANTINO, HLD, admitted with coffee ground emesis and AMS. -Acute upper GI bleed s/p EGD with antral non bleeding Ulcer/Small clot in fundus without underlyling lesion/submucosal nodule -Acute blood loss anemia s/p 5 units PRBC -AMS, encephalopathy from above, suspect associated with electrolytes abnormalities -Severe hypernatremia (Free water deficit around 10L) -Suspected aspiration PNA now with severe sepsis -Acute systolic heart failure exacerbation -Atrial fibrillation on xarelto -Chronic systolic Heart failure -CONSTANTINO (refused CPAP) -h/o paroxysmal VT s/p ICD -Ascending aortic aneurysm (5.0 cm) -HLD -NIDDM Plan: Hypotensive overnight, hold anti-HTN Pressors as needed. s/p central line, resuscitation guided by CVP ID input noted, zosyn/vancomycin, follow up cultures. Free water via NG tube, feeds as tolerated. Cardiology input noted. Transfuse 1 unit PRBC. Xarelto on hold, IV protonix, GI input noted Weaning trial per ICU. Failed to wake up off sedation yesterday. Amiodarone/digoxin as able. ISS [id number] with SCDs dispo ICU level of care Poor prognosis Palliative care consult to address overall goals of care. Total critical care time spent 37 min. Visit type - Emergency Visit Emergency Visit: Yes ED Registration Date: 10/15/18 Care time: The patient presented to the Emergency Department on the above date and was hospitalized for further evaluation of their emergent condition. - New Patient This patient is new to me today: No - Critical Care Critical Care patient: Yes Total Critical Care Time (in minutes): 37 Critical Care Statement: The care of this patient involved high complexity decision making to prevent further life threatening deterioration of the patient 's condition and/or to evaluate & treat vital organ system(s) failure or risk of failure.
--- NOTE | 2018-10-22 13:07 | PN ---
Progress Note, Physician Chief Complaint: The patient seen in his ICU room. Events noted. Hypotensive. Remains poorly responsive. Sedated, vent supported. Maintains excellent urine output. History of Present Illness: This is a 82 year old gentleman with hx of Afib, Hypertension, DM, CHF with reduced ejection fraction, CKD presented with AMS and upper GI bleed found to have gastric ulcer and worsening Hypernatremia. S/p EGD that showed 3mm clean based ulcer in proximal antrum and 8mm submucosal nodule in antrum. Pt is currently intubated via ET tube, on vent support. Making urine via jameson. Also free water has been started to be supplemented through the NG tube. - Current Medication List Current Medications: Active Medications Acetaminophen (Tylenol Oral Solution -) 650 mg PO Q6H PRN PRN Reason: FEVER Last Admin: 10/22/18 09:46 Dose: 650 mg Albuterol/Ipratropium (Duoneb -) 1 amp NEB Q4H PRN PRN Reason: SHORTNESS OF BREATH Amiodarone HCl (Cordarone -) 400 mg PO DAILY ON [facility] OF [facility] Last Admin: 10/22/18 09:13 Dose: 400 mg Atorvastatin Calcium (Lipitor -) 10 mg PO HS ON [facility] OF [facility] Last Admin: 10/21/18 22:23 Dose: 10 mg Carvedilol (Coreg -) 18.75 mg PO BID ON [facility] OF [facility] Last Admin: 10/21/18 22:21 Dose: 18.75 mg Chlorhexidine Gluconate (Hibiclens For Decolonization -) 1 applic TP HS ON LICENSE OF [facility] Last Admin: 10/21/18 22:22 Dose: 1 applic Diltiazem HCl (Cardizem Injection -) 20 mg IVPUSH Q4H PRN PRN Reason: TACHYCARDIA IV Flush (Triple Lumen Flush) 4 ml IVPUSH PRN PRN PRN Reason: Protocol Propofol (Diprivan -) 1,000,000 mcg in 100 mls @ 4.491 mls/hr IVPB TITR ON LICENSE OF [facility]; Protocol Last Admin: 10/22/18 12:51 Dose: 7 mcg/kg/min, 6.287 mls/hr Piperacillin Sod/Tazobactam (Sod 3.375 gm/ Dextrose) 50 mls @ 100 mls/hr IVPB Q8H-IV [facility]; Protocol Last Admin: 10/22/18 09:12 Dose: 100 mls/hr Vancomycin HCl 1,250 mg/ (Dextrose) 250 mls @ 166.667 mls/hr IVPB Q24H [facility]; Protocol Last Admin: 10/21/18 15:46 Dose: 166.667 mls/hr Vasopressin 50 units/ Sodium (Chloride) 100 mls @ 4 mls/hr IVPB ASDIR [facility]; Protocol Last Admin: 10/22/18 08:42 Dose: Not Given Insulin Aspart (Novolog Vial Sliding Scale -) 1 vial SQ Q4HPO [facility]; Protocol Last Admin: 10/22/18 13:02 Dose: 2 units Nystatin (Mycostatin Cream -) 1 applic TP BID [facility] Last Admin: 10/22/18 09:13 Dose: 1 applic Pantoprazole Sodium (Protonix Iv) 40 mg IVPUSH DAILY ON [facility] OF [facility] Last Admin: 10/22/18 09:12 Dose: 40 mg - Objective Vital Signs: Vital Signs Temperature 99.9 F H 10/22/18 12:54 Pulse Rate 78 10/22/18 12:54 Respiratory Rate 17 10/22/18 12:55 Blood Pressure 92/59 L 10/22/18 12:54 O2 Sat by Pulse Oximetry (%) 93 L 10/22/18 07:50 Labs: CBC, BMP 10/22/18 05:30 10/22/18 05:30 INR, PTT INR 1.28 (0.83-1.09) H 10/17/18 05:30 Assessment/Plan This is a 82 year old gentleman with hx of Afib, Hypertension, DM, CHF with reduced ejection fraction, CKD presented with AMS and upper GI bleed found to have gastric ulcer and worsening Hypernatremia. S/p EGD that showed 3mm clean based ulcer in proximal antrum and 8mm submucosal nodule in antrum. Pt is currently intubated via ET tube, on vent support. Serum sodium today 15 mEq/L. Slowly trending down. There is peripheral edema, but this is multifactorial reasons. Will contine free water supplements. Vasopressin, if the BP drops. Will follow with you. Ines Monterroso MD
[2018-10-22] MEDS: VANCOMYCIN HCL 1,250 MG in DEXTROSE 5%-WATER - 250 ML IVPB SCH (14:06)
[2018-10-22] MEDS: ALBUTEROL SO4 2.5/IPRATROPIUM 0.5 INH SOL 3 ML VIAL.NEB. NEB PRN (17:50)
[2018-10-22] MEDS: CHLORHEXIDINE GLUCONATE 4% CLEANSER FOR DECOLONIZATION TP SCH (21:55)
[2018-10-22] MEDS: ATORVASTATIN CA 10 MG TABLET (FP) PO SCH (22:11)
[2018-10-23] MEDS ORDERED: PIPERACILLIN/TAZOBACTAM 3.375 GM VIAL IVPB ONE ×2 (01:00→09:32)
[2018-10-23] MEDS ORDERED: DEXTROSE 5%-WATER - 50 ML IVPB ONE ×2 (01:00→09:32)
[2018-10-23] MEDS ORDERED: BENZOIN/ALOE VERA/STORAX/TOLU 58 ML BOTTLE ONE ×2 (01:10→09:31)
[2018-10-23] MEDS: INSULIN SLIDING SCALE (NOVOLOG) 1 VIAL SQ SCH ×6 (01:11→21:16)
[2018-10-23] MEDS: PIPERACILLIN/TAZOB 3.375 GM 3.375 GM in DEXTROSE 5%-WATER - 50 ML IVPB SCH ×2 (01:12→09:33)
[2018-10-23] MEDS: ACETAMINOPHEN 650 MG/20.3 ML ORAL SOLUTION (CUPS) PO PRN ×3 (04:39→20:26)
[2018-10-23 06:49] LABS: ALBUMIN 2.2 g/dl (3.4-5.0); ALK PHOS 132 U/L (45-117); ANION GAP 2 MMOL/L (8-16); BILIRUBIN,TOTAL 1.4 mg/dL (0.2-1); BLOOD UREA NITROGEN 56 mg/dL (7-18); CALCIUM 7.8 mg/dL (8.5-10.1); CHLORIDE 117 mmol/L (98-107); CO2 31 mmol/L (21-32); CREATININE 1.9 mg/dL (0.55-1.3); GLUCOSE,RANDOM 226 mg/dL (74-106); MAGNESIUM 3.3 mg/dL (1.8-2.4); PHOSPHOROUS 4.4 mg/dL (2.5-4.9); POTASSIUM 4.7 mmol/L (3.5-5.1); SGOT/AST 22 U/L (15-37); SGPT/ALT 17 U/L (13-61); SODIUM 151 mmol/L (136-145); TOT PROT 5.4 g/dl (6.4-8.2)
[2018-10-23 07:15] LABS: BASO % 0.2 % (0-2.0); EOS % 3.2 % (0-4.5); HEMATOCRIT 27.4 % (35.4-49); HEMOGLOBIN 8.5 GM/dL (11.7-16.9); LYMPH % 10.8 % (8-40); MCH 29.9 pg (25.7-33.7); MCHC 31.1 g/dl (32.0-35.9); MEAN CELL VOLUME 96.2 fl (80-96); MEAN PLT VOLUME 11.6 fl (7.5-11.1); MONO % 9.3 % (3.8-10.2); NEUT % 76.5 % (42.8-82.8); PLATELET COUNT 111 K/MM3 (134-434); RBC 2.85 M/mm3 (4.00-5.60); RDW 18.1 % (11.9-15.9); WHITE BLOOD COUNT 13.9 K/mm3 (4.0-10.0)
[2018-10-23] MEDS: ALBUTEROL SO4 2.5/IPRATROPIUM 0.5 INH SOL 3 ML VIAL.NEB. NEB PRN (08:41)
--- NOTE | 2018-10-23 09:00 | PN ---
Progress Note, Physician Chief Complaint: seen and examined Remains intubated on 50% FIO2 TELE: AF, controlled, rare VPCs Having fevers, hypotensive. History of Present Illness: CXR worsening congestion - Current Medication List Current Medications: Active Medications Acetaminophen (Tylenol Oral Solution -) 650 mg PO Q6H PRN PRN Reason: FEVER Last Admin: 10/23/18 04:39 Dose: 650 mg Albuterol/Ipratropium (Duoneb -) 1 amp NEB Q4H PRN PRN Reason: SHORTNESS OF BREATH Last Admin: 10/23/18 08:41 Dose: 1 amp Amiodarone HCl (Cordarone -) 400 mg PO DAILY [facility] Last Admin: 10/22/18 09:13 Dose: 400 mg Atorvastatin Calcium (Lipitor -) 10 mg PO HS [facility] Last Admin: 10/22/18 22:11 Dose: 10 mg Carvedilol (Coreg -) 18.75 mg PO BID [facility] Last Admin: 10/21/18 22:21 Dose: 18.75 mg Chlorhexidine Gluconate (Hibiclens For Decolonization -) 1 applic TP HS [facility] Last Admin: 10/22/18 21:55 Dose: 1 applic Diltiazem HCl (Cardizem Injection -) 20 mg IVPUSH Q4H PRN PRN Reason: TACHYCARDIA IV Flush (Triple Lumen Flush) 4 ml IVPUSH PRN PRN PRN Reason: Protocol Propofol (Diprivan -) 1,000,000 mcg in 100 mls @ 4.491 mls/hr IVPB TITR [facility]; Protocol Last Admin: 10/22/18 22:13 Dose: 7 mcg/kg/min, 6.287 mls/hr Piperacillin Sod/Tazobactam (Sod 3.375 gm/ Dextrose) 50 mls @ 100 mls/hr IVPB Q8H-IV [facility]; Protocol Last Admin: 10/23/18 01:12 Dose: 100 mls/hr Vancomycin HCl 1,250 mg/ (Dextrose) 250 mls @ 166.667 mls/hr IVPB Q24H [facility]; Protocol Last Admin: 10/22/18 14:06 Dose: 166.667 mls/hr Insulin Aspart (Novolog Vial Sliding Scale -) 1 vial SQ Q4HPO [facility]; Protocol Last Admin: 10/23/18 06:09 Dose: 4 units Nystatin (Mycostatin Cream -) 1 applic TP BID [facility] Last Admin: 10/22/18 21:56 Dose: 1 applic Pantoprazole Sodium (Protonix Iv) 40 mg IVPUSH DAILY [facility] Last Admin: 10/22/18 09:12 Dose: 40 mg - Objective Vital Signs: Vital Signs Temperature 99.9 F H 10/23/18 07:25 Pulse Rate 89 10/23/18 07:25 Respiratory Rate 21 H 10/23/18 08:37 Blood Pressure 87/54 L 10/23/18 07:25 O2 Sat by Pulse Oximetry (%) 92 L 10/23/18 07:33 Constitutional: Yes: Other (intubated and sedated on vent) Cardiovascular: Yes: Pulse Irregular Respiratory: Yes: Other (= breath sounds b/l) Gastrointestinal: Yes: Soft, Abdomen, Obese Edema: Yes Edema: LLE: 1+, RLE: 1+ Neurological: Yes: Other (sedated on vent) Labs: CBC, BMP 10/23/18 05:30 10/23/18 05:30 INR, PTT INR 1.28 (0.83-1.09) H 10/17/18 05:30 Microbiology 10/19/18 17:30 Urine - Urine Villa Urine Culture - Final NO GROWTH OBTAINED 10/15/18 10:40 Urine - Urine - Catheterized Urine Culture - Final NO GROWTH OBTAINED 10/15/18 10:30 Blood - Peripheral Venous Blood Culture - Final NO GROWTH AFTER 5 DAYS INCUBATION 10/15/18 10:00 Blood - Peripheral Venous Blood Culture - Final NO GROWTH AFTER 5 DAYS INCUBATION 10/19/18 12:30 Blood - Peripheral Venous Blood Culture - Preliminary NO GROWTH OBTAINED AFTER 72 HOURS, INCUBATION TO CONTINUE FOR 2 DAYS. Laboratory Tests 10/23/18 10/23/18 05:30 05:30 WBC 13.9 H Hgb 8.5 L Plt Count 111 L Sodium 151 H BUN 56 H Creatinine 1.9 H - ....Imaging Chest X-ray: Image Reviewed EKG: Image Reviewed Assessment/Plan 82M h/o chronic systolic HF, ICD, afib on xarelto, epistaxis p/w coffee ground emesis, alt mental status 1. Coffee ground emesis/GIB: - transfuse per critical care, follow H/H. - manage per GI 2. AF: - on carvedilol, digoxin at home: Holding Carvedilol in the setting of hypotension. Continue Amio. - holding xarelto in this setting. Required transfusion yesterday 3. Paroxysmal VT, s/p ICD: - multiple prior episodes, prior shocks - monitoring on tele -Cont amio 4. Chronic systolic HF: - EF 40-45%echo 09/2017 - holding diuretics in current setting of GIB. However, CXR is worsening and weight is up. Diurese as tolerated. Consider Lasix gtts which may help to prevent hypotension (as can happen with bolus dosing). 5. Aneurysm of ascending aorta: - prior reports 5.0 cm, yearly imaging with CT chest and consideration for surgery if >6 cm - 4.8 cm here, no dissection 6. CONSTANTINO: - refuses CPAP at home 7.HLD: - on statin at home, holding while NPO 8. Fever: -fever work up as per Critical Care 9. Hypotension: -Serial CBCs. -Pressors if needed to maintain MAP 60
[2018-10-23] MEDS: NYSTATIN 100,000 UNIT/GM TOPICAL CREAM 15 GM TUBE TP SCH ×2 (09:13→21:16)
[2018-10-23] MEDS: AMIODARONE HCL 200 MG TABLET (FP) PO SCH (09:13)
[2018-10-23] MEDS: PANTOPRAZOLE SODIUM 40 MG VIAL IVPUSH SCH (09:33)
--- NOTE | 2018-10-23 10:11 | PN ---
Teaching Attending Note Name of Resident: Kamini Cooper ATTENDING PHYSICIAN STATEMENT I saw and evaluated the patient. I reviewed the resident's note and discussed the case with the resident. I agree with the resident's findings and plan as documented. SUBJECTIVE: Patient seen and examined in the ICU. Intubated and sedated on AC Mode of vent , 40%. Did not require pressors overnight. No occult bleeding. CVP: 8 to 9 CXR: Increasing bilateral pulmonary edema and effusions Intake & Output 10/20/18 10/21/18 10/22/18 10/23/18 23:59 23:59 23:59 23:59 Intake Total 1134.5 4910.4 2942 1685 Output Total 2900 2300 Balance -1765.5 2610.4 2942 1685 Weight 303 lb 5.697 oz 303 lb 310 lb 6.574 oz 310 lb 13.628 oz Last Vital Signs Temp Pulse Resp BP Pulse Ox 99.9 F H 82 21 H 92/55 L 92 L 10/23/18 07:25 10/23/18 08:00 10/23/18 08:37 10/23/18 08:00 10/23/18 07:33 Active Medications Acetaminophen (Tylenol Oral Solution -) 650 mg PO Q6H PRN PRN Reason: FEVER Last Admin: 10/23/18 04:39 Dose: 650 mg Albuterol/Ipratropium (Duoneb -) 1 amp NEB Q4H PRN PRN Reason: SHORTNESS OF BREATH Last Admin: 10/23/18 08:41 Dose: 1 amp Amiodarone HCl (Cordarone -) 400 mg PO DAILY [facility] Last Admin: 10/23/18 09:13 Dose: 400 mg Atorvastatin Calcium (Lipitor -) 10 mg PO HS [facility] Last Admin: 10/22/18 22:11 Dose: 10 mg Carvedilol (Coreg -) 18.75 mg PO BID [facility] Last Admin: 10/21/18 22:21 Dose: 18.75 mg Chlorhexidine Gluconate (Hibiclens For Decolonization -) 1 applic TP HS [facility] Last Admin: 10/22/18 21:55 Dose: 1 applic Diltiazem HCl (Cardizem Injection -) 20 mg IVPUSH Q4H PRN PRN Reason: TACHYCARDIA IV Flush (Triple Lumen Flush) 4 ml IVPUSH PRN PRN PRN Reason: Protocol Propofol (Diprivan -) 1,000,000 mcg in 100 mls @ 4.491 mls/hr IVPB TITR [facility]; Protocol Last Admin: 10/22/18 22:13 Dose: 7 mcg/kg/min, 6.287 mls/hr Piperacillin Sod/Tazobactam (Sod 3.375 gm/ Dextrose) 50 mls @ 100 mls/hr IVPB Q8H-IV [facility]; Protocol Last Admin: 10/23/18 09:33 Dose: 100 mls/hr Vancomycin HCl 1,250 mg/ (Dextrose) 250 mls @ 166.667 mls/hr IVPB Q24H [facility]; Protocol Last Admin: 10/22/18 14:06 Dose: 166.667 mls/hr Insulin Aspart (Novolog Vial Sliding Scale -) 1 vial SQ Q4HPO [facility]; Protocol Last Admin: 10/23/18 06:09 Dose: 4 units Nystatin (Mycostatin Cream -) 1 applic TP BID [facility] Last Admin: 10/23/18 09:13 Dose: 1 applic Pantoprazole Sodium (Protonix Iv) 40 mg IVPUSH DAILY [facility] Last Admin: 10/23/18 09:33 Dose: 40 mg Gen; Intubated sedated HEENT: orally intubated PULM: bibasilar rales and rhonchi, no wheezes CV: tachy, irreg ABD: soft, +BS EXT: venous stasis, pitting and weeping LE edema NEURO: sedated Laboratory Results - last 24 hr 10/22/18 10/22/18 10/22/18 13:00 13:01 16:32 WBC RBC Hgb Hct MCV MCH MCHC RDW Plt Count MPV Absolute Neuts (auto) Neutrophils % Lymphocytes % Monocytes % Eosinophils % Basophils % Nucleated RBC % Sodium Potassium Chloride Carbon Dioxide Anion Gap BUN Creatinine Creat Clearance w eGFR POC Glucometer 178 213 Random Glucose Calcium Phosphorus Magnesium Total Bilirubin AST ALT Alkaline Phosphatase Total Protein Albumin Vancomycin Pre-Dose 7.5 L 10/22/18 10/23/18 10/23/18 21:58 01:05 05:30 WBC 13.9 H RBC 2.85 L Hgb 8.5 L Hct 27.4 L MCV 96.2 H MCH 29.9 MCHC 31.1 L RDW 18.1 H Plt Count 111 L MPV 11.6 H Absolute Neuts (auto) 10.7 H Neutrophils % 76.5 Lymphocytes % 10.8 Monocytes % 9.3 Eosinophils % 3.2 D Basophils % 0.2 Nucleated RBC % 0 Sodium Potassium Chloride Carbon Dioxide Anion Gap BUN Creatinine Creat Clearance w eGFR POC Glucometer 216 246 Random Glucose Calcium Phosphorus Magnesium Total Bilirubin AST ALT Alkaline Phosphatase Total Protein Albumin Vancomycin Pre-Dose 10/23/18 10/23/18 05:30 05:52 WBC RBC Hgb Hct MCV MCH MCHC RDW Plt Count MPV Absolute Neuts (auto) Neutrophils % Lymphocytes % Monocytes % Eosinophils % Basophils % Nucleated RBC % Sodium 151 H Potassium 4.7 Chloride 117 H Carbon Dioxide 31 Anion Gap 2 L BUN 56 H Creatinine 1.9 H Creat Clearance w eGFR 34.28 POC Glucometer 218 Random Glucose 226 H Calcium 7.8 L Phosphorus 4.4 Magnesium 3.3 H Total Bilirubin 1.4 H AST 22 ALT 17 Alkaline Phosphatase 132 H Total Protein 5.4 L Albumin 2.2 L Vancomycin Pre-Dose IMP: Acute Respiratory Failure UGIB CHF PPM/AICD RENEA AAA Acute blood loss anemia HTN DM CH AICD/PPM Atrial fibrillation on eliquis (?) Aspiration Pneumonitis Follow CVP Minimize IVF and decrease free water. Have created increased capillary leak and worsening CXR Pressors (NE) for MAP < 65 Follow CBC Normal transfusion threshold: Hgb 8 SCDs Monitor off sedation Enteral feeds ABX coverage Wean trials as tolerated as mental status improves Enteral feeds If mental status does not improve off sedation -> CT head in the AM May need Trach Dr Saini Critical care time spent in reviewing chart, evaluating patient and formulating plan - 36 minutes
--- NOTE | 2018-10-23 10:57 | PN ---
Progress Note (short form) - Note Progress Note: remains intubated rfevers trending down no pressors bp is low Vital Signs Period Temp Pulse Resp BP Sys/Lambert Pulse Ox Last 24 Hr 97.5 F-100.8 F 74-90 14-28 87-104/53-67 92-99 cor-rrr lungs decreased bs at bases abd soft,nt ext trace edema CBC, BMP 10/23/18 05:30 10/23/18 05:30 Microbiology 10/19/18 12:30 Blood - Peripheral Venous Blood Culture - Preliminary NO GROWTH OBTAINED AFTER 72 HOURS, INCUBATION TO CONTINUE FOR 2 DAYS. 10/19/18 12:40 Blood - Peripheral Venous Blood Culture - Preliminary NO GROWTH OBTAINED AFTER 72 HOURS, INCUBATION TO CONTINUE FOR 2 DAYS. 10/20/18 05:30 Sputum - Endotrachea Suction/Ventilator Gram Stain - Final 10/20/18 05:30 Sputum - Endotrachea Suction/Ventilator Sputum Culture - Final Escherichia Coli Yeast Like Organism 10/19/18 17:30 Urine - Urine Villa Urine Culture - Final NO GROWTH OBTAINED 10/15/18 10:00 Blood - Peripheral Venous Blood Culture - Final NO GROWTH AFTER 5 DAYS INCUBATION 10/15/18 10:30 Blood - Peripheral Venous Blood Culture - Final NO GROWTH AFTER 5 DAYS INCUBATION 10/15/18 10:40 Urine - Urine - Catheterized Urine Culture - Final NO GROWTH OBTAINED Current Medications Acetaminophen (Tylenol Oral Solution -) 650 mg PO Q6H PRN PRN Reason: FEVER Last Admin: 10/23/18 04:39 Dose: 650 mg Albuterol/Ipratropium (Duoneb -) 1 amp NEB Q4H PRN PRN Reason: SHORTNESS OF BREATH Last Admin: 10/23/18 08:41 Dose: 1 amp Amiodarone HCl (Cordarone -) 400 mg PO DAILY [facility] Last Admin: 10/23/18 09:13 Dose: 400 mg Atorvastatin Calcium (Lipitor -) 10 mg PO [facility] Last Admin: 10/22/18 22:11 Dose: 10 mg Carvedilol (Coreg -) 18.75 mg PO BID [facility] Last Admin: 10/21/18 22:21 Dose: 18.75 mg Chlorhexidine Gluconate (Hibiclens For Decolonization -) 1 applic TP [facility] Last Admin: 10/22/18 21:55 Dose: 1 applic Diltiazem HCl (Cardizem Injection -) 20 mg IVPUSH Q4H PRN PRN Reason: TACHYCARDIA IV Flush (Triple Lumen Flush) 4 ml IVPUSH PRN PRN PRN Reason: Protocol Propofol (Diprivan -) 1,000,000 mcg in 100 mls @ 4.491 mls/hr IVPB TITR [facility]; Protocol Last Admin: 10/22/18 22:13 Dose: 7 mcg/kg/min, 6.287 mls/hr Piperacillin Sod/Tazobactam (Sod 3.375 gm/ Dextrose) 50 mls @ 100 mls/hr IVPB Q8H-IV [facility]; Protocol Last Admin: 10/23/18 09:33 Dose: 100 mls/hr Vancomycin HCl 1,250 mg/ (Dextrose) 250 mls @ 166.667 mls/hr IVPB Q24H [facility]; Protocol Last Admin: 10/22/18 14:06 Dose: 166.667 mls/hr Insulin Aspart (Novolog Vial Sliding Scale -) 1 vial SQ Q4HPO [facility]; Protocol Last Admin: 10/23/18 06:09 Dose: 4 units Nystatin (Mycostatin Cream -) 1 applic TP BID [facility] Last Admin: 10/23/18 09:13 Dose: 1 applic Pantoprazole Sodium (Protonix Iv) 40 mg IVPUSH DAILY [facility] Last Admin: 10/23/18 09:33 Dose: 40 mg cxray increased infiltrate/effusion a/p fevers improved d/c vancomycin and zosyn start rocephin respiratory failure-worsening cxray- ?fluid status GI bleed doing poorly
[2018-10-23] MEDS ORDERED: DEXTROSE 5%-WATER 100 ML IVPB ONE (11:51)
[2018-10-23] MEDS: CEFTRIAXONE 2 GM in DEXTROSE 5%-WATER 100 ML IVPB SCH (11:52)
--- NOTE | 2018-10-23 11:55 | PN ---
Physical Exam: SUBJECTIVE: Patient seen and examined, intubated sedated OBJECTIVE: Vital Signs Period Temp Pulse Resp BP Sys/Lambert Pulse Ox Last 24 Hr 97.5 F-100.8 F 74-90 14-28 87-104/53-67 92-99 Intake & Output 10/20/18 10/21/18 10/22/18 10/23/18 23:59 23:59 23:59 23:59 Intake Total 1134.5 4910.4 2942 1685 Output Total 2900 2300 Balance -1765.5 2610.4 2942 1685 Weight 303 lb 5.697 oz 303 lb 310 lb 6.574 oz 310 lb 13.628 oz GENERAL: intubated, sedated, anasarcic Chest: limited exam, decreased air entry Abdomen;Soft, obese, positive bowel sounds Extremities: anasarcic, pitting and weeping LE edema Neuro: sedated CVS: tachy, irregular Laboratory Results - last 24 hr 10/22/18 10/22/18 10/22/18 13:00 13:01 16:32 WBC RBC Hgb Hct MCV MCH MCHC RDW Plt Count MPV Absolute Neuts (auto) Neutrophils % Lymphocytes % Monocytes % Eosinophils % Basophils % Nucleated RBC % Sodium Potassium Chloride Carbon Dioxide Anion Gap BUN Creatinine Creat Clearance w eGFR POC Glucometer 178 213 Random Glucose Calcium Phosphorus Magnesium Total Bilirubin AST ALT Alkaline Phosphatase Total Protein Albumin Vancomycin Pre-Dose 7.5 L 10/22/18 10/23/18 10/23/18 21:58 01:05 05:30 WBC 13.9 H RBC 2.85 L Hgb 8.5 L Hct 27.4 L MCV 96.2 H MCH 29.9 MCHC 31.1 L RDW 18.1 H Plt Count 111 L MPV 11.6 H Absolute Neuts (auto) 10.7 H Neutrophils % 76.5 Lymphocytes % 10.8 Monocytes % 9.3 Eosinophils % 3.2 D Basophils % 0.2 Nucleated RBC % 0 Sodium Potassium Chloride Carbon Dioxide Anion Gap BUN Creatinine Creat Clearance w eGFR POC Glucometer 216 246 Random Glucose Calcium Phosphorus Magnesium Total Bilirubin AST ALT Alkaline Phosphatase Total Protein Albumin Vancomycin Pre-Dose 10/23/18 10/23/18 10/23/18 05:30 05:52 11:31 WBC RBC Hgb Hct MCV MCH MCHC RDW Plt Count MPV Absolute Neuts (auto) Neutrophils % Lymphocytes % Monocytes % Eosinophils % Basophils % Nucleated RBC % Sodium 151 H Potassium 4.7 Chloride 117 H Carbon Dioxide 31 Anion Gap 2 L BUN 56 H Creatinine 1.9 H Creat Clearance w eGFR 34.28 POC Glucometer 218 267 Random Glucose 226 H Calcium 7.8 L Phosphorus 4.4 Magnesium 3.3 H Total Bilirubin 1.4 H AST 22 ALT 17 Alkaline Phosphatase 132 H Total Protein 5.4 L Albumin 2.2 L Vancomycin Pre-Dose Active Medications Generic Name Dose Route Start Last Admin Trade Name Freq PRN Reason Stop Dose Admin Acetaminophen 650 mg 10/21/18 19:32 10/23/18 04:39 Tylenol Oral Solution - PO 650 mg Q6H PRN Administration FEVER Albuterol/Ipratropium 1 amp 10/16/18 07:05 10/23/18 08:41 Duoneb - NEB 1 amp Q4H PRN Administration SHORTNESS OF BREATH Amiodarone HCl 400 mg 10/22/18 10:00 10/23/18 09:13 Cordarone - PO 400 mg DAILY [facility] Administration Atorvastatin Calcium 10 mg 10/22/18 22:00 10/22/18 22:11 Lipitor - PO 10 mg HS [facility] Administration Carvedilol 18.75 mg 10/21/18 22:00 10/21/18 22:21 Coreg - PO 18.75 mg BID [facility] Administration Chlorhexidine Gluconate 1 applic 10/15/18 22:00 10/22/18 21:55 Hibiclens For Decolonization - TP 1 applic HS [facility] Administration Diltiazem HCl 20 mg 10/21/18 19:31 Cardizem Injection - IVPUSH Q4H PRN TACHYCARDIA IV Flush 4 ml 10/22/18 11:09 Triple Lumen Flush IVPUSH PRN PRN Protocol Ceftriaxone Sodium 2 gm/ 100 mls @ 100 mls/hr 10/23/18 11:00 10/23/18 11:52 Dextrose IVPB 100 mls/hr DAILY [facility] Administration Protocol Insulin Aspart 1 vial 10/17/18 14:00 10/23/18 11:32 Novolog Vial Sliding Scale - SQ 6 units Q4HPO [facility] Administration Protocol Nystatin 1 applic 10/15/18 22:00 10/23/18 09:13 Mycostatin Cream - TP 1 applic BID [facility] Administration Pantoprazole Sodium 40 mg 10/18/18 10:00 10/23/18 09:33 Protonix Iv IVPUSH 40 mg DAILY [facility] Administration CXR worsening congestion, pleural effusion ASSESSMENT/PLAN: 82 yom with PMHx of chronic systolic HF, Paroxysmal VT s/p ICD, afib on xarelto , epistaxis, Ascending aortic aneurysm (5 cm), CONSTANTINO, HLD, admitted with coffee ground emesis and AMS. -Acute upper GI bleed s/p EGD with antral non bleeding Ulcer/Small clot in fundus without underlyling lesion/submucosal nodule -Acute blood loss anemia s/p 5 units PRBC -AMS, encephalopathy from above, suspect associated with electrolytes abnormalities -Severe hypernatremia (Free water deficit around 10L) -Suspected aspiration PNA now with severe sepsis -Acute systolic heart failure exacerbation -Atrial fibrillation on xarelto -Chronic systolic Heart failure -CONSTANTINO (refused CPAP) -h/o paroxysmal VT s/p ICD -Ascending aortic aneurysm (5.0 cm) -HLD -NIDDM Plan: ID inputnoted, zosyn/vanco d/rohith, Ceftriaxone, cultures neg so far. CVP 8-9 Weaning/trach per ICU. Minimize fluids, decrease free water. CXR worse. CT head in 24 hours if fails to wake up off sedation. h/h stable. Cardiology input noted. Xarelto on hold, IV protonix, GI input noted Amiodarone/digoxin as able. ISS [id number] with SCDs dispo ICU level of care Poor prognosis Palliative care consult to address overall goals of care. Total critical care time spent 37 min. Visit type - Emergency Visit Emergency Visit: Yes ED Registration Date: 10/15/18 Care time: The patient presented to the Emergency Department on the above date and was hospitalized for further evaluation of their emergent condition. - New Patient This patient is new to me today: No - Critical Care Critical Care patient: Yes Total Critical Care Time (in minutes): 37 Critical Care Statement: The care of this patient involved high complexity decision making to prevent further life threatening deterioration of the patient 's condition and/or to evaluate & treat vital organ system(s) failure or risk of failure.
--- NOTE | 2018-10-23 12:23 | PN ---
Physical Exam: SUBJECTIVE: Patient seen this morning, not waking up even off sedation. slight fever in the morning. OBJECTIVE: Vital Signs Temperature 99.9 F H 10/23/18 07:25 Pulse Rate 88 10/23/18 10:48 Respiratory Rate 22 H 10/23/18 10:48 Blood Pressure 104/53 L 10/23/18 10:48 O2 Sat by Pulse Oximetry (%) 92 L 10/23/18 07:33 GENERAL: The patient is intubated, minimal response to stimuli, obese HEAD: Normal with no signs of trauma. LUNGS: Breath sounds equal, clear to auscultation bilaterally, HEART: Regular rate and rhythm, ICD inplace ABDOMEN: Soft, nontender, nondistended, normoactive bowel sounds EXTREMITIES: 2+ pulses, increasing dependent edema SKIN: Warm, dry, normal turgor, no rashes or lesions noted CBCD WBC 13.9 K/mm3 (4.0-10.0) H 10/23/18 05:30 RBC 2.85 M/mm3 (4.00-5.60) L 10/23/18 05:30 Hgb 8.5 GM/dL (11.7-16.9) L 10/23/18 05:30 Hct 27.4 % (35.4-49) L 10/23/18 05:30 MCV 96.2 fl (80-96) H 10/23/18 05:30 MCHC 31.1 g/dl (32.0-35.9) L 10/23/18 05:30 RDW 18.1 % (11.9-15.9) H 10/23/18 05:30 Plt Count 111 K/MM3 (134-434) L 10/23/18 05:30 MPV 11.6 fl (7.5-11.1) H 10/23/18 05:30 CMP Sodium 151 mmol/L (136-145) H 10/23/18 05:30 Potassium 4.7 mmol/L (3.5-5.1) 10/23/18 05:30 Chloride 117 mmol/L (98-107) H 10/23/18 05:30 Carbon Dioxide 31 mmol/L (21-32) 10/23/18 05:30 Anion Gap 2 MMOL/L (8-16) L 10/23/18 05:30 BUN 56 mg/dL (7-18) H 10/23/18 05:30 Creatinine 1.9 mg/dL (0.55-1.3) H 10/23/18 05:30 Creat Clearance w eGFR 34.28 (>60) 10/23/18 05:30 Calcium 7.8 mg/dL (8.5-10.1) L 10/23/18 05:30 Total Bilirubin 1.4 mg/dL (0.2-1) H 10/23/18 05:30 AST 22 U/L (15-37) 10/23/18 05:30 ALT 17 U/L (13-61) 10/23/18 05:30 Alkaline Phosphatase 132 U/L (45-117) H 10/23/18 05:30 Total Protein 5.4 g/dl (6.4-8.2) L 10/23/18 05:30 Albumin 2.2 g/dl (3.4-5.0) L 10/23/18 05:30 Active Medications Acetaminophen (Tylenol Oral Solution -) 650 mg PO Q6H PRN PRN Reason: FEVER Last Admin: 10/23/18 04:39 Dose: 650 mg Albuterol/Ipratropium (Duoneb -) 1 amp NEB Q4H PRN PRN Reason: SHORTNESS OF BREATH Last Admin: 10/23/18 08:41 Dose: 1 amp Amiodarone HCl (Cordarone -) 400 mg PO DAILY [facility] Last Admin: 10/23/18 09:13 Dose: 400 mg Atorvastatin Calcium (Lipitor -) 10 mg PO HS [facility] Last Admin: 10/22/18 22:11 Dose: 10 mg Carvedilol (Coreg -) 18.75 mg PO BID [facility] Last Admin: 10/21/18 22:21 Dose: 18.75 mg Chlorhexidine Gluconate (Hibiclens For Decolonization -) 1 applic TP HS [facility] Last Admin: 10/22/18 21:55 Dose: 1 applic Diltiazem HCl (Cardizem Injection -) 20 mg IVPUSH Q4H PRN PRN Reason: TACHYCARDIA IV Flush (Triple Lumen Flush) 4 ml IVPUSH PRN PRN PRN Reason: Protocol Ceftriaxone Sodium 2 gm/ (Dextrose) 100 mls @ 100 mls/hr IVPB DAILY [facility]; Protocol Last Admin: 10/23/18 11:52 Dose: 100 mls/hr Insulin Aspart (Novolog Vial Sliding Scale -) 1 vial SQ Q4HPO [facility]; Protocol Last Admin: 10/23/18 11:32 Dose: 6 units Nystatin (Mycostatin Cream -) 1 applic TP BID [facility] Last Admin: 10/23/18 09:13 Dose: 1 applic Pantoprazole Sodium (Protonix Iv) 40 mg IVPUSH DAILY [facility] Last Admin: 10/23/18 09:33 Dose: 40 mg ASSESSMENT/PLAN: Patient is a 82 y/o male with a history of afib, HTN, DM, HFrEF w ICD, and AAA who is here for GI bleed. Neuro - intubated and sedated, for airway protection upon arrival - on Versed and Propofol - patient failed weaning trial, - continue weaning trials, head CT tomorrow if mental status does not change Cardio - hx afib, restarted xarelto and carvedilol, amiodarone and rosuvastatin - hx AAA 4.8, f/u yearly imaging - Echo 10/13 EF: 40 -45% - hold po torsemide - ICD in place - hold BP medication for low pressures as needed Pulm - intubated with IPPV - TV 500, R 20, O2 40%, PEEP 8 - CXR; infiltrates, pneumonitis vs aspiration pneumonia - f/u CXR - Chest CT: bilateral lower lobe consolidation/atelectasis - continue weaning trial daily GI - Upper GI bleed vs vomiting epistaxis, resolved - received 6 units PRBC - EGD: two shallow ulcers found and clotting in the fundus - protonix 40 daily - no further evidence of GI bleed - patient tolerating feeds Neprho - hold IV fluids, patient 3rd spacing - hypernatremia resolving, 151 - continue free water flushes 200 ml Q4 Heme - transfusion threshold 8 - received 6 units, 1 unit yesterday - hgb remaining stable - continue ac now that GI bleed resolved ID - possible PNA vs Pnuemonitis - continue Ceftriaxone day 2 - Ua with 2+ LE, WBC 10, will send new ucx and change jameson - sputum cx growin E. coli - Ucx and blood cx negative Endo - SS - 24 units in 24 hours FEN - intubated - monitor NA closely - on promote feeds - hold IV fluids - free water at 800 daily Dispo: continue weaning trials, f/u palliative care consult Visit type - Emergency Visit Emergency Visit: No - New Patient This patient is new to me today: No - Critical Care Critical Care patient: Yes Total Critical Care Time (in minutes): 40 Critical Care Statement: The care of this patient involved high complexity decision making to prevent further life threatening deterioration of the patient 's condition and/or to evaluate & treat vital organ system(s) failure or risk of failure.
--- NOTE | 2018-10-23 13:04 | PN ---
Progress Note, Physician Chief Complaint: The patient seen in his ICU room. Events noted. Remains poorly responsive. Sedated, vent supported. Edematous. Maintains good urine output. History of Present Illness: This is a 82 year old gentleman with hx of Afib, Hypertension, DM, CHF with reduced ejection fraction, CKD presented with AMS and upper GI bleed found to have gastric ulcer and worsening Hypernatremia. S/p EGD that showed 3mm clean based ulcer in proximal antrum and 8mm submucosal nodule in antrum. Pt is currently intubated via ET tube, on vent support. Making urine via jameson. - Current Medication List Current Medications: Active Medications Acetaminophen (Tylenol Oral Solution -) 650 mg PO Q6H PRN PRN Reason: FEVER Last Admin: 10/23/18 12:20 Dose: 650 mg Albuterol/Ipratropium (Duoneb -) 1 amp NEB Q4H PRN PRN Reason: SHORTNESS OF BREATH Last Admin: 10/23/18 08:41 Dose: 1 amp Amiodarone HCl (Cordarone -) 400 mg PO DAILY [facility] Last Admin: 10/23/18 09:13 Dose: 400 mg Atorvastatin Calcium (Lipitor -) 10 mg PO HS [facility] Last Admin: 10/22/18 22:11 Dose: 10 mg Carvedilol (Coreg -) 18.75 mg PO BID [facility] Last Admin: 10/21/18 22:21 Dose: 18.75 mg Chlorhexidine Gluconate (Hibiclens For Decolonization -) 1 applic TP HS [facility] Last Admin: 10/22/18 21:55 Dose: 1 applic Diltiazem HCl (Cardizem Injection -) 20 mg IVPUSH Q4H PRN PRN Reason: TACHYCARDIA IV Flush (Triple Lumen Flush) 4 ml IVPUSH PRN PRN PRN Reason: Protocol Ceftriaxone Sodium 2 gm/ (Dextrose) 100 mls @ 100 mls/hr IVPB DAILY [facility]; Protocol Last Admin: 10/23/18 11:52 Dose: 100 mls/hr Insulin Aspart (Novolog Vial Sliding Scale -) 1 vial SQ Q4HPO [facility]; Protocol Last Admin: 10/23/18 11:32 Dose: 6 units Nystatin (Mycostatin Cream -) 1 applic TP BID [facility] Last Admin: 10/23/18 09:13 Dose: 1 applic Pantoprazole Sodium (Protonix Iv) 40 mg IVPUSH DAILY [facility] Last Admin: 10/23/18 09:33 Dose: 40 mg - Objective Vital Signs: Vital Signs Temperature 102.1 F H 10/23/18 12:21 Pulse Rate 94 H 10/23/18 12:21 Respiratory Rate 20 10/23/18 12:21 Blood Pressure 104/56 L 10/23/18 12:21 O2 Sat by Pulse Oximetry (%) 92 L 10/23/18 07:33 Constitutional: Yes: Obese Neck: Yes: Supple Cardiovascular: Yes: Tachycardia, S1, S2 Respiratory: Yes: Diminished, Intubated, Mechanically Ventilated, Poor Air Entry , Rhonchi Gastrointestinal: Yes: Abdomen, Obese, Hypoactive Bowel Sounds Edema: Yes Edema: LUE: 3+, RUE: 3+, LLE: 3+, RLE: 3+ Labs: CBC, BMP 10/23/18 05:30 10/23/18 05:30 INR, PTT INR 1.28 (0.83-1.09) H 10/17/18 05:30 Assessment/Plan This is a 82 year old gentleman with hx of Afib, Hypertension, DM, CHF with reduced ejection fraction, CKD presented with AMS and upper GI bleed found to have gastric ulcer and Hypernatremia. S/p EGD that showed 3mm clean based ulcer in proximal antrum and 8mm submucosal nodule in antrum. Pt is currently intubated via ET tube, on vent support. Patient is poorly responsive. Off Propofol. Serum sodium today 151 mEq/L. Slowly trending down. There is marked peripheral edema. Will contine free water supplements. Vasopressin, if the BP drops. IV antibiotics as ordered. Will follow with you. Ines Monterroso MD
[2018-10-23] MEDS: ATORVASTATIN CA 10 MG TABLET (FP) PO SCH (21:16)
[2018-10-23] MEDS: CHLORHEXIDINE GLUCONATE 4% CLEANSER FOR DECOLONIZATION TP SCH (21:17)
[2018-10-24] MEDS: INSULIN SLIDING SCALE (NOVOLOG) 1 VIAL SQ SCH ×6 (02:36→22:16)
[2018-10-24] MEDS: ACETAMINOPHEN 650 MG/20.3 ML ORAL SOLUTION (CUPS) PO PRN ×2 (02:37→14:45)
[2018-10-24 06:35] LABS: HEMATOCRIT 29.2 % (35.4-49); HEMOGLOBIN 9.2 GM/dL (11.7-16.9); MCH 30.4 pg (25.7-33.7); MCHC 31.4 g/dl (32.0-35.9); MEAN CELL VOLUME 96.7 fl (80-96); MEAN PLT VOLUME 11.3 fl (7.5-11.1); PLATELET COUNT 197 K/MM3 (134-434); RBC 3.01 M/mm3 (4.00-5.60); RDW 18.5 % (11.9-15.9); WHITE BLOOD COUNT 16.3 K/mm3 (4.0-10.0)
[2018-10-24 07:01] LABS: ALBUMIN 2.4 g/dl (3.4-5.0); ALK PHOS 156 U/L (45-117); ANION GAP 2 MMOL/L (8-16); BILIRUBIN,TOTAL 1.2 mg/dL (0.2-1); BLOOD UREA NITROGEN 59 mg/dL (7-18); CALCIUM 7.8 mg/dL (8.5-10.1); CHLORIDE 117 mmol/L (98-107); CO2 33 mmol/L (21-32); GLUCOSE,RANDOM 249 mg/dL (74-106); MAGNESIUM 3.3 mg/dL (1.8-2.4); PHOSPHOROUS 3.1 mg/dL (2.5-4.9); SGOT/AST 28 U/L (15-37); SGPT/ALT 19 U/L (13-61); SODIUM 152 mmol/L (136-145); TOT PROT 5.7 g/dl (6.4-8.2)
[2018-10-24] MEDS ORDERED: DEXTROSE 5%-WATER 100 ML IVPB ONE (08:43)
[2018-10-24] MEDS ORDERED: PT OWN MED DRAWER 7, Y5N ONE ×2 (08:43→12:55)
--- NOTE | 2018-10-24 08:56 | PN ---
Progress Note, Physician Chief Complaint: remains intubated Febrile. CXR with worsening congestion. - Current Medication List Current Medications: Active Medications Acetaminophen (Tylenol Oral Solution -) 650 mg PO Q6H PRN PRN Reason: FEVER Last Admin: 10/24/18 02:37 Dose: 650 mg Acetaminophen (Ofirmev Injection -) 1,000 mg IVPB Q6H PRN PRN Reason: FEVER Albuterol/Ipratropium (Duoneb -) 1 amp NEB Q4H PRN PRN Reason: SHORTNESS OF BREATH Last Admin: 10/23/18 08:41 Dose: 1 amp Amiodarone HCl (Cordarone -) 400 mg PO DAILY [facility] Last Admin: 10/23/18 09:13 Dose: 400 mg Atorvastatin Calcium (Lipitor -) 10 mg PO HS [facility] Last Admin: 10/23/18 21:16 Dose: 10 mg Carvedilol (Coreg -) 18.75 mg PO BID [facility] Last Admin: 10/21/18 22:21 Dose: 18.75 mg Chlorhexidine Gluconate (Hibiclens For Decolonization -) 1 applic TP HS [facility] Last Admin: 10/23/18 21:17 Dose: 1 applic Diltiazem HCl (Cardizem Injection -) 20 mg IVPUSH Q4H PRN PRN Reason: TACHYCARDIA IV Flush (Triple Lumen Flush) 4 ml IVPUSH PRN PRN PRN Reason: Protocol Last Admin: 10/23/18 18:34 Dose: 4 ml Ceftriaxone Sodium 2 gm/ (Dextrose) 100 mls @ 100 mls/hr IVPB DAILY [facility]; Protocol Last Admin: 10/23/18 11:52 Dose: 100 mls/hr Insulin Aspart (Novolog Vial Sliding Scale -) 1 vial SQ Q4HPO [facility]; Protocol Last Admin: 10/24/18 06:42 Dose: 4 units Nystatin (Mycostatin Cream -) 1 applic TP BID [facility] Last Admin: 10/23/18 21:16 Dose: 1 applic Pantoprazole Sodium (Protonix Iv) 40 mg IVPUSH DAILY [facility] Last Admin: 10/23/18 09:33 Dose: 40 mg - Objective Vital Signs: Vital Signs Temperature 102.0 F H 10/24/18 06:00 Pulse Rate 116 H 10/24/18 07:57 Respiratory Rate 16 10/24/18 08:00 Blood Pressure 125/78 10/24/18 06:00 O2 Sat by Pulse Oximetry (%) 93 L 10/24/18 08:00 Constitutional: Yes: Other (intubated) Cardiovascular: Yes: Pulse Irregular Respiratory: Yes: Other (= breath sounds b/l, no active wheezing) Gastrointestinal: Yes: Soft, Abdomen, Obese Edema: Yes Edema: LLE: 1+ (venous stasis), RLE: 1+ (venous stasis) Neurological: Yes: Other (off propofol, but not resonsive) Labs: CBC, BMP 10/24/18 05:30 10/24/18 05:30 INR, PTT INR 1.28 (0.83-1.09) H 10/17/18 05:30 Microbiology 10/19/18 17:30 Urine - Urine Villa Urine Culture - Final NO GROWTH OBTAINED 10/15/18 10:40 Urine - Urine - Catheterized Urine Culture - Final NO GROWTH OBTAINED 10/15/18 10:30 Blood - Peripheral Venous Blood Culture - Final NO GROWTH AFTER 5 DAYS INCUBATION 10/15/18 10:00 Blood - Peripheral Venous Blood Culture - Final NO GROWTH AFTER 5 DAYS INCUBATION 10/19/18 12:30 Blood - Peripheral Venous Blood Culture - Preliminary NO GROWTH OBTAINED AFTER 96 HOURS, INCUBATION TO CONTINUE FOR 1 DAYS. Laboratory Tests 10/24/18 10/24/18 05:30 05:30 WBC 16.3 H Hgb 9.2 L Plt Count 197 D Sodium 152 H Potassium 5.0 BUN 59 H Creatinine 2.0 H - ....Imaging EKG: Image Reviewed (Rate controlled AF) Assessment/Plan Assessment/Plan 82M h/o chronic systolic HF, ICD, afib on xarelto, epistaxis p/w coffee ground emesis/GI bleed, alt mental status: 1. Coffee ground emesis/GIB: ulcers - transfuse per critical care, follow H/H. - manage per GI 2. AF: - on carvedilol, digoxin at home: Holding Carvedilol in the setting of hypotension/fever/sepsis. Continue Amio. - holding xarelto in this setting. Required transfusion over weekend. -Repeat head CT planned today (pt off sedation and not responsive- ?toxic / metabolic?) 3. Paroxysmal VT, s/p ICD: - multiple prior episodes, prior shocks - monitoring on tele -Cont amio 4. Chronic systolic HF: - EF 40-45%echo 09/2017 - holding diuretics in current setting of GIB. However, CXR is worsening and weight is up. Diurese as tolerated. Consider Lasix gtts which may help to prevent hypotension (as can happen with bolus dosing). 5. Aneurysm of ascending aorta: - prior reports 5.0 cm, yearly imaging with CT chest and consideration for surgery if >6 cm - 4.8 cm here, no dissection 6. CONSTANTINO: - refuses CPAP at home 7.HLD: - on statin at home, holding while NPO 8. Fever: -fever work up as per Critical Care, ID 9. Hypotension: -Serial CBCs. -Pressors if needed to maintain MAP 60 Overall prognosis guarded.
[2018-10-24] MEDS: AMIODARONE HCL 200 MG TABLET (FP) PO SCH (09:09)
[2018-10-24] MEDS: PANTOPRAZOLE SODIUM 40 MG VIAL IVPUSH SCH (09:09)
[2018-10-24] MEDS: CEFTRIAXONE 2 GM in DEXTROSE 5%-WATER 100 ML IVPB SCH (09:09)
[2018-10-24] MEDS: ACETAMINOPHEN 1000 MG/100 ML VIAL (NON FORMULARY) IVPB PRN (09:11)
--- NOTE | 2018-10-24 09:13 | PN ---
Teaching Attending Note Name of Resident: Anabela Maciel ATTENDING PHYSICIAN STATEMENT I saw and evaluated the patient. I reviewed the resident's note and discussed the case with the resident. I agree with the resident's findings and plan as documented with exceptions below. SUBJECTIVE: Patient seen and examined. Intubated, off sedation OBJECTIVE: Vital Signs Period Temp Pulse Resp BP Sys/Lambert Pulse Ox Last 24 Hr 102.0 F-104 F 88-116 16-23 88-125/53-78 93-95 Intake & Output 10/21/18 10/22/18 10/23/18 10/24/18 23:59 23:59 23:59 23:59 Intake Total 4910.4 2942 3693 679 Output Total 2300 Balance 2610.4 2942 3693 679 Weight 303 lb 310 lb 6.574 oz 310 lb 13.628 oz 314 lb 2.539 oz General: intubated, non responsive in bed Chest; limited anterior exam, scattered rhonchin Abdomen;Soft, obese, distended, positive bowel sounds NecK: right IJ HEENT: oral intubation, OG tube Extremities: anasarcic Home Medications Medication Instructions Recorded Atorvastatin Ca [Lipitor] 10 mg PO HS 10/15/17 Carvedilol [Coreg -] 18.75 mg PO BID 10/15/17 Sitagliptin Phosphate [Januvia] 100 mg PO DAILY 10/15/17 Pantoprazole Sodium [Protonix] 40 mg PO DAILY #4 tablet. 10/20/17 Rivaroxaban [Xarelto] 15 mg PO DAILY #30 tab 11/02/17 Amiodarone HCl [Cordarone -] 400 mg PO DAILY 10/15/18 Glyburide 10 mg PO BID 10/15/18 Torsemide [Demadex -] 200 mg PO BID 10/15/18 Active Medications Acetaminophen (Tylenol Oral Solution -) 650 mg PO Q6H PRN PRN Reason: FEVER Last Admin: 10/24/18 02:37 Dose: 650 mg Acetaminophen (Ofirmev Injection -) 1,000 mg IVPB Q6H PRN PRN Reason: FEVER Albuterol/Ipratropium (Duoneb -) 1 amp NEB Q4H PRN PRN Reason: SHORTNESS OF BREATH Last Admin: 10/23/18 08:41 Dose: 1 amp Amiodarone HCl (Cordarone -) 400 mg PO DAILY [facility] Last Admin: 10/24/18 09:09 Dose: 400 mg Atorvastatin Calcium (Lipitor -) 10 mg PO HS [facility] Last Admin: 10/23/18 21:16 Dose: 10 mg Carvedilol (Coreg -) 18.75 mg PO BID [facility] Last Admin: 10/21/18 22:21 Dose: 18.75 mg Chlorhexidine Gluconate (Hibiclens For Decolonization -) 1 applic TP HS [facility] Last Admin: 10/23/18 21:17 Dose: 1 applic Diltiazem HCl (Cardizem Injection -) 20 mg IVPUSH Q4H PRN PRN Reason: TACHYCARDIA IV Flush (Triple Lumen Flush) 4 ml IVPUSH PRN PRN PRN Reason: Protocol Last Admin: 10/23/18 18:34 Dose: 4 ml Ceftriaxone Sodium 2 gm/ (Dextrose) 100 mls @ 100 mls/hr IVPB DAILY [facility]; Protocol Last Admin: 10/24/18 09:09 Dose: 100 mls/hr Vancomycin HCl (Vancomycin 1 Gm Premix -) 1 gm in 200 mls @ 133.333 mls/hr IVPB Q12H [facility]; Protocol Insulin Aspart (Novolog Vial Sliding Scale -) 1 vial SQ Q4HPO [facility]; Protocol Last Admin: 10/24/18 06:42 Dose: 4 units Nystatin (Mycostatin Cream -) 1 applic TP BID [facility] Last Admin: 10/23/18 21:16 Dose: 1 applic Pantoprazole Sodium (Protonix Iv) 40 mg IVPUSH DAILY [facility] Last Admin: 10/24/18 09:09 Dose: 40 mg Laboratory Results - last 24 hr 10/23/18 10/23/18 10/23/18 11:31 17:20 21:08 WBC RBC Hgb Hct MCV MCH MCHC RDW Plt Count MPV Sodium Potassium Chloride Carbon Dioxide Anion Gap BUN Creatinine Creat Clearance w eGFR POC Glucometer 267 316 279 Random Glucose Calcium Phosphorus Magnesium Total Bilirubin AST ALT Alkaline Phosphatase Total Protein Albumin 10/24/18 10/24/18 10/24/18 02:25 05:30 05:30 WBC 16.3 H RBC 3.01 L Hgb 9.2 L Hct 29.2 L MCV 96.7 H MCH 30.4 MCHC 31.4 L RDW 18.5 H Plt Count 197 D MPV 11.3 H Sodium 152 H Potassium 5.0 Chloride 117 H Carbon Dioxide 33 H Anion Gap 2 L BUN 59 H Creatinine 2.0 H Creat Clearance w eGFR 32.23 POC Glucometer 277 Random Glucose 249 H Calcium 7.8 L Phosphorus 3.1 Magnesium 3.3 H Total Bilirubin 1.2 H AST 28 ALT 19 Alkaline Phosphatase 156 H Total Protein 5.7 L Albumin 2.4 L 10/24/18 05:37 WBC RBC Hgb Hct MCV MCH MCHC RDW Plt Count MPV Sodium Potassium Chloride Carbon Dioxide Anion Gap BUN Creatinine Creat Clearance w eGFR POC Glucometer 232 Random Glucose Calcium Phosphorus Magnesium Total Bilirubin AST ALT Alkaline Phosphatase Total Protein Albumin Microbiology 10/19/18 12:30 Blood - Peripheral Venous Blood Culture - Preliminary NO GROWTH OBTAINED AFTER 96 HOURS, INCUBATION TO CONTINUE FOR 1 DAYS. 10/19/18 12:40 Blood - Peripheral Venous Blood Culture - Preliminary NO GROWTH OBTAINED AFTER 96 HOURS, INCUBATION TO CONTINUE FOR 1 DAYS. 10/20/18 05:30 Sputum - Endotrachea Suction/Ventilator Gram Stain - Final 10/20/18 05:30 Sputum - Endotrachea Suction/Ventilator Sputum Culture - Final Escherichia Coli Yeast Like Organism 10/19/18 17:30 Urine - Urine Villa Urine Culture - Final NO GROWTH OBTAINED 10/15/18 10:00 Blood - Peripheral Venous Blood Culture - Final NO GROWTH AFTER 5 DAYS INCUBATION 10/15/18 10:30 Blood - Peripheral Venous Blood Culture - Final NO GROWTH AFTER 5 DAYS INCUBATION 10/15/18 10:40 Urine - Urine - Catheterized Urine Culture - Final NO GROWTH OBTAINED ASSESSMENT AND PLAN: 82 yom with PMHx of chronic systolic HF, Paroxysmal VT s/p ICD, afib on xarelto , epistaxis, Ascending aortic aneurysm (5 cm), CONSTANTINO, HLD, admitted with coffee ground emesis and AMS. -Acute upper GI bleed s/p EGD with antral non bleeding Ulcer/Small clot in fundus without underlyling lesion/submucosal nodule -Acute blood loss anemia s/p 5 units PRBC -AMS, encephalopathy from above, suspect associated with electrolytes abnormalities -Severe hypernatremia (Free water deficit around 10L) -Suspected aspiration PNA now with severe sepsis -Acute systolic heart failure exacerbation -Atrial fibrillation on xarelto -Chronic systolic Heart failure -CONSTANTINO (refused CPAP) -h/o paroxysmal VT s/p ICD -Ascending aortic aneurysm (5.0 cm) -HLD -NIDDM Plan: Recurrent fevers. Reculture, follow up with ID. Off sedation x 24 hours, no improvement in mental status. CT head and neurology input. Minimize fluids, decrease free water. CXR noted Transfuse for Hb <8 as tolerated. Cardiology input noted. Xarelto on hold, IV protonix, GI input noted Amiodarone/digoxin as able. ISS [id number] with SCDs dispo ICU level of care Poor prognosis Palliative care consult to address overall goals of care. Total critical care time spent 38 min.
[2018-10-24] MEDS ORDERED: VANCOMYCIN 1 GM PREMIX - 1 GM/200 ML BAG IVPB SCH ×2 (09:15)
[2018-10-24 10:39] VITALS: BMI 42.0
--- NOTE | 2018-10-24 12:33 | PN ---
Teaching Attending Note Name of Resident: Kamini Cooper ATTENDING PHYSICIAN STATEMENT I saw and evaluated the patient. I reviewed the resident's note and discussed the case with the resident. I agree with the resident's findings and plan as documented. SUBJECTIVE: Pt seen and examined in the ICU. Remains intubated, poorly responsive off sedation. Borderline hypotension. Persistently febrile. OBJECTIVE: Vital Signs Period Temp Pulse Resp BP Sys/Lambert Pulse Ox Last 24 Hr 102.0 F-104 F 91-116 16-23 88-125/56-78 93-95 Intake & Output 10/21/18 10/22/18 10/23/18 10/24/18 23:59 23:59 23:59 23:59 Intake Total 4910.4 2942 3693 679 Output Total 2300 Balance 2610.4 2942 3693 679 Weight 137.438 kg 140.8 kg 141 kg 142.5 kg Gen: intubated, poorly responsive Heart: RRR Lung: scattered rhonchi Abd: soft, nontender Ext: dependent edeman CBC, BMP 10/24/18 05:30 10/24/18 05:30 Active Medications Acetaminophen (Tylenol Oral Solution -) 650 mg PO Q6H PRN PRN Reason: FEVER Last Admin: 10/24/18 02:37 Dose: 650 mg Acetaminophen (Ofirmev Injection -) 1,000 mg IVPB Q6H PRN PRN Reason: FEVER Last Admin: 10/24/18 09:11 Dose: 1,000 mg Albuterol/Ipratropium (Duoneb -) 1 amp NEB Q4H PRN PRN Reason: SHORTNESS OF BREATH Last Admin: 10/23/18 08:41 Dose: 1 amp Amiodarone HCl (Cordarone -) 400 mg PO DAILY [facility] Last Admin: 10/24/18 09:09 Dose: 400 mg Atorvastatin Calcium (Lipitor -) 10 mg PO HS [facility] Last Admin: 10/23/18 21:16 Dose: 10 mg Carvedilol (Coreg -) 18.75 mg PO BID [facility] Last Admin: 10/21/18 22:21 Dose: 18.75 mg Chlorhexidine Gluconate (Hibiclens For Decolonization -) 1 applic TP HS [facility] Last Admin: 10/23/18 21:17 Dose: 1 applic Diltiazem HCl (Cardizem Injection -) 20 mg IVPUSH Q4H PRN PRN Reason: TACHYCARDIA IV Flush (Triple Lumen Flush) 4 ml IVPUSH PRN PRN PRN Reason: Protocol Last Admin: 10/23/18 18:34 Dose: 4 ml Ceftriaxone Sodium 2 gm/ (Dextrose) 100 mls @ 100 mls/hr IVPB DAILY [facility]; Protocol Last Admin: 10/24/18 09:09 Dose: 100 mls/hr Vancomycin HCl 1,500 mg/ (Dextrose) 500 mls @ 250 mls/hr IVPB Q24H [facility]; Protocol Insulin Aspart (Novolog Vial Sliding Scale -) 1 vial SQ Q4HPO [facility]; Protocol Last Admin: 10/24/18 06:42 Dose: 4 units Nystatin (Mycostatin Cream -) 1 applic TP BID [facility] Last Admin: 10/23/18 21:16 Dose: 1 applic Pantoprazole Sodium (Protonix Iv) 40 mg IVPUSH DAILY [facility] Last Admin: 10/24/18 09:09 Dose: 40 mg ASSESSMENT AND PLAN: Acute Respiratory Failure r/o Pneumonia Severe Sepsis Acute on Chronic Renal Failure GI Bleed likely Upper Acute Blood Loss Anemia LV Systolic Dysfunction s/p ICD Atrial Fibrillation Hypernatremia HTN DM - continue antibiotics - f/u pending cultures - CT head for poor mental status - CT C/A/P to investigate source of fevers - monitor H/H - transfuse as needed - free water replacement - monitor lytes - rate control - holding anticoagulation - hold all sedation to assess mental status - spontaneous breathing trials when mental status improved - enteral feeds - DVT/GI prophylaxis - continue ICU monitoring critical care time spent in reviewing chart, evaluating patient and formulating plan 35 min
[2018-10-24] MEDS: NYSTATIN 100,000 UNIT/GM TOPICAL CREAM 15 GM TUBE TP SCH ×2 (12:50→21:48)
[2018-10-24] MEDS: VANCOMYCIN HCL 1,500 MG in DEXTROSE 5%-WATER - 500 ML IVPB SCH (13:00)
--- NOTE | 2018-10-24 14:16 | PN ---
Physical Exam: SUBJECTIVE: Patient seen this morning and does not wake up to sternal rub or stimuli. Patient has been off sedation for over 24 hour. Patient has been febrile overnight. OBJECTIVE: Vital Signs Temperature 102.0 F H 10/24/18 06:00 Pulse Rate 116 H 10/24/18 07:57 Respiratory Rate 17 10/24/18 11:47 Blood Pressure 125/78 10/24/18 06:00 O2 Sat by Pulse Oximetry (%) 93 L 10/24/18 08:00 GENERAL: The patient is intubated, minimal response to stimuli, obese HEAD: Normal with no signs of trauma. LUNGS: Breath sounds equal, clear to auscultation bilaterally, HEART: Regular rate and rhythm, ICD inplace ABDOMEN: Soft, nontender, nondistended, normoactive bowel sounds EXTREMITIES: 2+ pulses, increasing dependent edema SKIN: Warm, dry, normal turgor, no rashes or lesions noted CBCD WBC 16.3 K/mm3 (4.0-10.0) H 10/24/18 05:30 RBC 3.01 M/mm3 (4.00-5.60) L 10/24/18 05:30 Hgb 9.2 GM/dL (11.7-16.9) L 10/24/18 05:30 Hct 29.2 % (35.4-49) L 10/24/18 05:30 MCV 96.7 fl (80-96) H 10/24/18 05:30 MCHC 31.4 g/dl (32.0-35.9) L 10/24/18 05:30 RDW 18.5 % (11.9-15.9) H 10/24/18 05:30 Plt Count 197 K/MM3 (134-434) D 10/24/18 05:30 MPV 11.3 fl (7.5-11.1) H 10/24/18 05:30 CMP Sodium 152 mmol/L (136-145) H 10/24/18 05:30 Potassium 5.0 mmol/L (3.5-5.1) 10/24/18 05:30 Chloride 117 mmol/L (98-107) H 10/24/18 05:30 Carbon Dioxide 33 mmol/L (21-32) H 10/24/18 05:30 Anion Gap 2 MMOL/L (8-16) L 10/24/18 05:30 BUN 59 mg/dL (7-18) H 10/24/18 05:30 Creatinine 2.0 mg/dL (0.55-1.3) H 10/24/18 05:30 Creat Clearance w eGFR 32.23 (>60) 10/24/18 05:30 Calcium 7.8 mg/dL (8.5-10.1) L 10/24/18 05:30 Total Bilirubin 1.2 mg/dL (0.2-1) H 10/24/18 05:30 AST 28 U/L (15-37) 10/24/18 05:30 ALT 19 U/L (13-61) 10/24/18 05:30 Alkaline Phosphatase 156 U/L (45-117) H 10/24/18 05:30 Total Protein 5.7 g/dl (6.4-8.2) L 10/24/18 05:30 Albumin 2.4 g/dl (3.4-5.0) L 10/24/18 05:30 Active Medications Acetaminophen (Tylenol Oral Solution -) 650 mg PO Q6H PRN PRN Reason: FEVER Last Admin: 10/24/18 02:37 Dose: 650 mg Acetaminophen (Ofirmev Injection -) 1,000 mg IVPB Q6H PRN PRN Reason: FEVER Last Admin: 10/24/18 09:11 Dose: 1,000 mg Albuterol/Ipratropium (Duoneb -) 1 amp NEB Q4H PRN PRN Reason: SHORTNESS OF BREATH Last Admin: 10/23/18 08:41 Dose: 1 amp Amiodarone HCl (Cordarone -) 400 mg PO DAILY [facility] Last Admin: 10/24/18 09:09 Dose: 400 mg Atorvastatin Calcium (Lipitor -) 10 mg PO HS [facility] Last Admin: 10/23/18 21:16 Dose: 10 mg Carvedilol (Coreg -) 18.75 mg PO BID [facility] Last Admin: 10/21/18 22:21 Dose: 18.75 mg Chlorhexidine Gluconate (Hibiclens For Decolonization -) 1 applic TP [facility] Last Admin: 10/23/18 21:17 Dose: 1 applic Diltiazem HCl (Cardizem Injection -) 20 mg IVPUSH Q4H PRN PRN Reason: TACHYCARDIA IV Flush (Triple Lumen Flush) 4 ml IVPUSH PRN PRN PRN Reason: Protocol Last Admin: 10/23/18 18:34 Dose: 4 ml Ceftriaxone Sodium 2 gm/ (Dextrose) 100 mls @ 100 mls/hr IVPB DAILY [facility]; Protocol Last Admin: 10/24/18 09:09 Dose: 100 mls/hr Vancomycin HCl 1,500 mg/ (Dextrose) 500 mls @ 250 mls/hr IVPB Q24H [facility]; Protocol Last Admin: 10/24/18 13:00 Dose: 250 mls/hr Insulin Aspart (Novolog Vial Sliding Scale -) 1 vial SQ Q4HPO [facility]; Protocol Last Admin: 10/24/18 12:51 Dose: 4 units Nystatin (Mycostatin Cream -) 1 applic TP BID [facility] Last Admin: 10/24/18 12:50 Dose: 1 applic Pantoprazole Sodium (Protonix Iv) 40 mg IVPUSH DAILY [facility] Last Admin: 10/24/18 09:09 Dose: 40 mg ASSESSMENT/PLAN: Patient is a 82 y/o male with a history of afib, HTN, DM, HFrEF w ICD, and AAA who is here for GI bleed. Neuro - intubated and sedated, for airway protection upon arrival - on Versed and Propofol - patient failed weaning trial, - continue weaning trials - head CT and EEG for any changes Cardio - hx afib, carvedilol, amiodarone and rosuvastatin - hx AAA 4.8, f/u yearly imaging - Echo 10/13 EF: 40 -45% - hold po torsemide - ICD in place - hold BP medication for low pressures as needed - continue to hold Xarelto as recent unit PRBC given, wait until H/H stable Pulm - intubated with IPPV - TV 500, R 20, O2 40%, PEEP 8 - CXR; infiltrates, pneumonitis vs aspiration pneumonia - f/u CXR - Chest CT: bilateral lower lobe consolidation/atelectasis, f/u repeat - continue weaning trial daily GI - Upper GI bleed vs vomiting epistaxis, resolved - received 6 units PRBC - EGD: two shallow ulcers found and clotting in the fundus - protonix 40 daily - no further evidence of GI bleed - patient tolerating feeds Neprho - hold IV fluids, patient 3rd spacing - hypernatremia resolving, 152 - continue free water flushes 200 ml Q4 Heme - transfusion threshold 8 - received 6 units - hgb remaining stable - hold AC for now, resume once stable ID - possible PNA vs Pnuemonitis - continue Ceftriaxone day 3, start Vancomycin today, renally dose - Ua with 2+ LE, WBC 10, will send new ucx and change jameson - sputum cx growing E. coli - Ucx and blood cx negative, f/u new blood and urine culture - f/u CT and Abdominal and Pelvic CT scan - tylenol for fever, can also consider cold packs/cooling blanket Endo - SS - 24 units in 24 hours FEN - intubated - monitor NA closely - on promote feeds - hold IV fluids - free water at 800 daily Dispo: continue weaning trials, f/u palliative care consult f/u CT's and cultures Visit type - Emergency Visit Emergency Visit: No - New Patient This patient is new to me today: No - Critical Care Critical Care patient: Yes Total Critical Care Time (in minutes): 45 Critical Care Statement: The care of this patient involved high complexity decision making to prevent further life threatening deterioration of the patient 's condition and/or to evaluate & treat vital organ system(s) failure or risk of failure.
[2018-10-24] MEDS ORDERED: NOREPINEPHRINE BITARTRATE 4 MG/4 ML ML IV ONE (14:59)
[2018-10-24] MEDS: NOREPINEPHRINE BITARTRATE 8,000 MCG in DEXTROSE 5%-WATER - 492 ML IV SCH (15:11)
--- NOTE | 2018-10-24 15:21 | PN ---
Progress Note, Physician History of Present Illness: OFF SEDATION 'NOT RESPONSIVE ON VENTILATOR PERSISTANT HIGH GRADE FEVER HYPOTENSIVE ON PRESSORS WBC 16. REPEAT CULTURES SENT CT SCANS ORDERED ON CEFTRIAXONE STAT VANCOMYCIN GIVEN - Current Medication List Current Medications: Active Medications Acetaminophen (Ofirmev Injection -) 1,000 mg IVPB Q6H PRN PRN Reason: FEVER Last Admin: 10/24/18 09:11 Dose: 1,000 mg Albuterol/Ipratropium (Duoneb -) 1 amp NEB Q4H PRN PRN Reason: SHORTNESS OF BREATH Last Admin: 10/23/18 08:41 Dose: 1 amp Amiodarone HCl (Cordarone -) 400 mg PO DAILY [facility] Last Admin: 10/24/18 09:09 Dose: 400 mg Atorvastatin Calcium (Lipitor -) 10 mg PO HS [facility] Last Admin: 10/23/18 21:16 Dose: 10 mg Carvedilol (Coreg -) 18.75 mg PO BID [facility] Last Admin: 10/21/18 22:21 Dose: 18.75 mg Chlorhexidine Gluconate (Hibiclens For Decolonization -) 1 applic TP HS [facility] Last Admin: 10/23/18 21:17 Dose: 1 applic Diltiazem HCl (Cardizem Injection -) 20 mg IVPUSH Q4H PRN PRN Reason: TACHYCARDIA IV Flush (Triple Lumen Flush) 4 ml IVPUSH PRN PRN PRN Reason: Protocol Last Admin: 10/23/18 18:34 Dose: 4 ml Ceftriaxone Sodium 2 gm/ (Dextrose) 100 mls @ 100 mls/hr IVPB DAILY [facility]; Protocol Last Admin: 10/24/18 09:09 Dose: 100 mls/hr Vancomycin HCl 1,500 mg/ (Dextrose) 500 mls @ 250 mls/hr IVPB Q24H [facility]; Protocol Last Admin: 10/24/18 13:00 Dose: 250 mls/hr Norepinephrine Bitartrate 8, (000 mcg/ Dextrose) 500 mls @ 18.75 mls/hr IV TITR [facility]; Protocol Last Admin: 10/24/18 15:11 Dose: 5 mcg/min, 18.75 mls/hr Insulin Aspart (Novolog Vial Sliding Scale -) 1 vial SQ Q4HPO [facility]; Protocol Last Admin: 10/24/18 12:51 Dose: 4 units Nystatin (Mycostatin Cream -) 1 applic TP BID [facility] Last Admin: 10/24/18 12:50 Dose: 1 applic Pantoprazole Sodium (Protonix Iv) 40 mg IVPUSH DAILY [facility] Last Admin: 10/24/18 09:09 Dose: 40 mg - Objective Vital Signs: Vital Signs Temperature 102.0 F H 10/24/18 06:00 Pulse Rate 98 H 10/24/18 15:11 Respiratory Rate 18 10/24/18 14:20 Blood Pressure 85/54 L 10/24/18 15:11 O2 Sat by Pulse Oximetry (%) 93 L 10/24/18 08:00 Constitutional: Yes: No Distress, Obese Cardiovascular: Yes: Regular Rate and Rhythm, S1, S2 Respiratory: Yes: Mechanically Ventilated Gastrointestinal: Yes: Normal Bowel Sounds, Soft. No: Tenderness Edema: Yes Labs: CBC, BMP 10/24/18 05:30 10/24/18 05:30 INR, PTT INR 1.28 (0.83-1.09) H 10/17/18 05:30 Assessment/Plan SEPSIS ? LUNG SOURCE RESPIRATORY FAILURE S/P GI BLEED AZOTEMIA AWAIT REPEAT C/S, CT SCANS CONTINUE VANCOMYCIN/ CEFTRIAXONE
--- NOTE | 2018-10-24 17:29 | PN ---
Physical Exam: SUBJECTIVE: Patient seen and examined, overnight fever, off sedation. OBJECTIVE: Vital Signs Period Temp Pulse Resp BP Sys/Lambert Pulse Ox Last 24 Hr 102.0 F-104 F 91-116 16-23 85-125/54-78 93-95 GENERAL: The patient is sedated, on mechanical ventilation. HEAD: Normal with no signs of trauma. EYES: PERRL, conjunctiva clear. ENT: Oropharynx clear without exudates, moist mucous membranes, on mech vent. NECK: Trachea midline, supple. LUNGS: Coarse breath sounds bilaterally, no wheezes, no crackles. HEART: Irregular rate and rhythm, S1, S2 without murmur, rub or gallop. ABDOMEN: Obese, soft, nontender, nondistended, normoactive bowel sounds. EXTREMITIES: 2+ pulses, warm, 3+ edema in upper and lower extremities. NEUROLOGICAL: sedated SKIN: Warm, dry, no rashes. Laboratory Results - last 24 hr 10/23/18 10/24/18 10/24/18 21:08 02:25 05:30 WBC 16.3 H RBC 3.01 L Hgb 9.2 L Hct 29.2 L MCV 96.7 H MCH 30.4 MCHC 31.4 L RDW 18.5 H Plt Count 197 D MPV 11.3 H Sodium Potassium Chloride Carbon Dioxide Anion Gap BUN Creatinine Creat Clearance w eGFR POC Glucometer 279 277 Random Glucose Calcium Phosphorus Magnesium Total Bilirubin AST ALT Alkaline Phosphatase Total Protein Albumin 10/24/18 10/24/18 10/24/18 05:30 05:37 12:25 WBC RBC Hgb Hct MCV MCH MCHC RDW Plt Count MPV Sodium 152 H Potassium 5.0 Chloride 117 H Carbon Dioxide 33 H Anion Gap 2 L BUN 59 H Creatinine 2.0 H Creat Clearance w eGFR 32.23 POC Glucometer 232 237 Random Glucose 249 H Calcium 7.8 L Phosphorus 3.1 Magnesium 3.3 H Total Bilirubin 1.2 H AST 28 ALT 19 Alkaline Phosphatase 156 H Total Protein 5.7 L Albumin 2.4 L 10/24/18 15:34 WBC RBC Hgb Hct MCV MCH MCHC RDW Plt Count MPV Sodium Potassium Chloride Carbon Dioxide Anion Gap BUN Creatinine Creat Clearance w eGFR POC Glucometer 250 Random Glucose Calcium Phosphorus Magnesium Total Bilirubin AST ALT Alkaline Phosphatase Total Protein Albumin Active Medications Generic Name Dose Route Start Last Admin Trade Name Freq PRN Reason Stop Dose Admin Acetaminophen 1,000 mg 10/24/18 06:33 10/24/18 09:11 Ofirmev Injection - IVPB 1,000 mg Q6H PRN Administration FEVER Albuterol/Ipratropium 1 amp 10/16/18 07:05 10/23/18 08:41 Duoneb - NEB 1 amp Q4H PRN Administration SHORTNESS OF BREATH Amiodarone HCl 400 mg 10/22/18 10:00 10/24/18 09:09 Cordarone - PO 400 mg DAILY [facility] Administration Atorvastatin Calcium 10 mg 10/22/18 22:00 10/23/18 21:16 Lipitor - PO 10 mg HS [facility] Administration Carvedilol 18.75 mg 10/21/18 22:00 10/21/18 22:21 Coreg - PO 18.75 mg BID [facility] Administration Chlorhexidine Gluconate 1 applic 10/15/18 22:00 10/23/18 21:17 Hibiclens For Decolonization - TP 1 applic HS [facility] Administration Diltiazem HCl 20 mg 10/21/18 19:31 Cardizem Injection - IVPUSH Q4H PRN TACHYCARDIA IV Flush 4 ml 10/22/18 11:09 10/23/18 18:34 Triple Lumen Flush IVPUSH 4 ml PRN PRN Administration Protocol Ceftriaxone Sodium 2 gm/ 100 mls @ 100 mls/hr 10/23/18 11:00 10/24/18 09:09 Dextrose IVPB 100 mls/hr DAILY [facility] Administration Protocol Vancomycin HCl 1,500 mg/ 500 mls @ 250 mls/hr 10/24/18 11:15 10/24/18 13:00 Dextrose IVPB 250 mls/hr Q24H [facility] Administration Protocol Norepinephrine Bitartrate 8, 500 mls @ 18.75 mls/hr 10/24/18 14:30 10/24/18 15:11 000 mcg/ Dextrose IV 5 mcg/min TITR [facility] 18.75 mls/hr Administration Protocol 5 MCG/MIN Insulin Aspart 1 vial 10/17/18 14:00 10/24/18 15:40 Novolog Vial Sliding Scale - SQ 4 units Q4HPO [facility] Administration Protocol Nystatin 1 applic 10/15/18 22:00 10/24/18 12:50 Mycostatin Cream - TP 1 applic BID [facility] Administration Pantoprazole Sodium 40 mg 10/18/18 10:00 10/24/18 09:09 Protonix Iv IVPUSH 40 mg DAILY [facility] Administration ASSESSMENT/PLAN: The patient is 82 year old male patient with hx of atrial fibrillation, HTN, DM , DL, HFrEF s/p single lead ICD (medtronic) presented AMS after his son found him vomiting blood, and intubated in ED, admitted to ICU for further management. Upper GI bleed: -no history of GI bleeding, coffee ground emesis -intubated, sedated -monitored H/H, transfused 5 units of PRBC, one more over the weekend -upper endoscopy: positive 3mm clean based ulcer in proximal antrum and 8mm submucosal nodule in antrum -will monitor for bleeding -PPI: 40 mg qd Acute respiratory failure: -intubated on AC -CT chest: bilateral lower lobe consolidation/atelectasis, CXR reviewed -will follow up Pulm recommendations -cont Duoneb q4h PRN -possible aspiration pneumonia Atrial Fibrillation: - holding xarelto due to bleeding - cont diltiazem IV PRN for tachycardia -cardiac monitoring Chronic systolic HF -last ECHO 09/2017, with EF 40-45% -strict I&O -continue to monitor volume status, hold diuretics, cont D5 Hypernatremia: -unchanged -f/u Nephro recs, D5W at 100 cc/hr, added free water flushes -monitor Possible UTI/aspiration PNA: -on Ceftriaxone -cont to spike low grade fever -UA positive, Villa changed Ascending aorta aneurysm: -4.[address], arch 4.2 cm, no dissection HLD -hold statins DM -ISS ACHS -BGM ACHS -HgA1c 6.4% F/E/N: LR/no.fube feeds DISPO: ICU Problem List - Problems (1) Abnormal liver function tests Code(s): R94.5 - ABNORMAL RESULTS OF LIVER FUNCTION STUDIES (2) Diabetic neuropathy Code(s): E11.40 - TYPE 2 DIABETES MELLITUS WITH DIABETIC NEUROPATHY, UNSP (3) Hypothyroidism Code(s): E03.9 - HYPOTHYROIDISM, UNSPECIFIED (4) Morbid exogenous obesity Code(s): E66.01 - MORBID (SEVERE) OBESITY DUE TO EXCESS CALORIES (5) Renal insufficiency Code(s): N28.9 - DISORDER OF KIDNEY AND URETER, UNSPECIFIED (6) Sleep apnea Code(s): G47.30 - SLEEP APNEA, UNSPECIFIED (7) Upper GI bleed Code(s): K92.2 - GASTROINTESTINAL HEMORRHAGE, UNSPECIFIED (8) Syncope Code(s): R55 - SYNCOPE AND COLLAPSE (9) Volume overload Code(s): E87.70 - FLUID OVERLOAD, UNSPECIFIED (10) Atrial fibrillation Code(s): I48.91 - UNSPECIFIED ATRIAL FIBRILLATION (11) CHF (congestive heart failure) Code(s): I50.9 - HEART FAILURE, UNSPECIFIED (12) Diabetes mellitus Code(s): E11.9 - TYPE 2 DIABETES MELLITUS WITHOUT COMPLICATIONS Qualifiers: Diabetes mellitus type: type 2 (13) Thoracic aortic aneurysm Code(s): I71.2 - THORACIC AORTIC ANEURYSM, WITHOUT RUPTURE (14) Venous stasis Code(s): I87.8 - OTHER SPECIFIED DISORDERS OF VEINS Visit type - Emergency Visit Emergency Visit: Yes ED Registration Date: 10/15/18 Care time: The patient presented to the Emergency Department on the above date and was hospitalized for further evaluation of their emergent condition. - New Patient This patient is new to me today: No - Critical Care Critical Care patient: Yes Total Critical Care Time (in minutes): 40 Critical Care Statement: The care of this patient involved high complexity decision making to prevent further life threatening deterioration of the patient 's condition and/or to evaluate & treat vital organ system(s) failure or risk of failure. - Discharge Referral Referred to [facility] No
[2018-10-24] MEDS: CHLORHEXIDINE GLUCONATE 4% CLEANSER FOR DECOLONIZATION TP SCH (21:48)
[2018-10-24] MEDS: ATORVASTATIN CA 10 MG TABLET (FP) PO SCH (21:50)
[2018-10-25] MEDS: ACETAMINOPHEN 1000 MG/100 ML VIAL (NON FORMULARY) IVPB PRN ×2 (00:20→10:48)
[2018-10-25] MEDS ORDERED: NOREPINEPHRINE BITARTRATE 4 MG/4 ML ML IV ONE ×2 (00:41→05:24)
[2018-10-25] MEDS ORDERED: VASOPRESSIN 20 UNITS/ML VIAL IV ONE ×2 (00:47→05:24)
[2018-10-25] MEDS: VASOPRESSIN 50 UNITS in SODIUM CHLORIDE 97.5 ML IVPB SCH ×2 (01:05→08:36)
[2018-10-25] MEDS: INSULIN SLIDING SCALE (NOVOLOG) 1 VIAL SQ SCH ×3 (04:06→10:45)
[2018-10-25] MEDS: NOREPINEPHRINE BITARTRATE 8,000 MCG in DEXTROSE 5%-WATER - 492 ML IV SCH ×2 (06:30→11:46)
[2018-10-25 06:50] LABS: HEMOGLOBIN 9.6 GM/dL (11.7-16.9); MCH 28.9 pg (25.7-33.7); MCHC 30.1 g/dl (32.0-35.9); MEAN PLT VOLUME 10.9 fl (7.5-11.1); PLATELET COUNT 234 K/MM3 (134-434); RBC 3.34 M/mm3 (4.00-5.60); WHITE BLOOD COUNT 18.4 K/mm3 (4.0-10.0)
[2018-10-25 07:26] LABS: ALBUMIN 2.4 g/dl (3.4-5.0); ALK PHOS 147 U/L (45-117); ANION GAP 6 MMOL/L (8-16); BILIRUBIN,TOTAL 1.1 mg/dL (0.2-1); BLOOD UREA NITROGEN 88 mg/dL (7-18); CALCIUM 7.5 mg/dL (8.5-10.1); CHLORIDE 112 mmol/L (98-107); CO2 29 mmol/L (21-32); CREATININE 3.7 mg/dL (0.55-1.3); GLUCOSE,RANDOM 266 mg/dL (74-106); MAGNESIUM 3.2 mg/dL (1.8-2.4); PHOSPHOROUS 5.2 mg/dL (2.5-4.9); POTASSIUM 5.4 mmol/L (3.5-5.1); SGOT/AST 52 U/L (15-37); SGPT/ALT 27 U/L (13-61); SODIUM 147 mmol/L (136-145); TOT PROT 5.8 g/dl (6.4-8.2)
[2018-10-25] MEDS ORDERED: HYDROCORTISONE SOD SUCCINATE 100 MG/2 ML VIAL IVPUSH SCH (09:00)
--- NOTE | 2018-10-25 09:23 | PN ---
Progress Note (short form) - Note Progress Note: s: intubated, on pressors, febrile tele: afib, rate ok Current Medications Acetaminophen (Ofirmev Injection -) 1,000 mg IVPB Q6H PRN PRN Reason: FEVER Last Admin: 10/25/18 00:20 Dose: 1,000 mg Amiodarone HCl (Cordarone -) 400 mg PO DAILY [facility] Last Admin: 10/25/18 10:07 Dose: 400 mg Atorvastatin Calcium (Lipitor -) 10 mg PO HS [facility] Last Admin: 10/24/18 21:50 Dose: 10 mg Carvedilol (Coreg -) 18.75 mg PO BID [facility] Last Admin: 10/21/18 22:21 Dose: 18.75 mg Chlorhexidine Gluconate (Hibiclens For Decolonization -) 1 applic TP HS [facility] Last Admin: 10/24/18 21:48 Dose: 1 applic Diltiazem HCl (Cardizem Injection -) 20 mg IVPUSH Q4H PRN PRN Reason: TACHYCARDIA Hydrocortisone Sodium Succinate (Solu-Cortef -) 50 mg IVPUSH Q6H-IV [facility] Last Admin: 10/25/18 10:05 Dose: 50 mg IV Flush (Triple Lumen Flush) 4 ml IVPUSH PRN PRN PRN Reason: Protocol Last Admin: 10/23/18 18:34 Dose: 4 ml Ceftriaxone Sodium 2 gm/ (Dextrose) 100 mls @ 100 mls/hr IVPB DAILY [facility]; Protocol Last Admin: 10/25/18 09:40 Dose: 100 mls/hr Vancomycin HCl 1,500 mg/ (Dextrose) 500 mls @ 250 mls/hr IVPB Q24H [facility]; Protocol Last Admin: 10/24/18 13:00 Dose: 250 mls/hr Norepinephrine Bitartrate 8, (000 mcg/ Dextrose) 500 mls @ 18.75 mls/hr IV TITR [facility]; Protocol Last Admin: 10/25/18 06:30 Dose: 25 mcg/min, 93.75 mls/hr Vasopressin 50 units/ Sodium (Chloride) 100 mls @ 4 mls/hr IVPB ASDIR [facility]; Protocol Last Admin: 10/25/18 08:36 Dose: 6 units/hr, 12 mls/hr Insulin Aspart (Novolog Vial Sliding Scale -) 1 vial SQ Q4HPO [facility]; Protocol Last Admin: 10/25/18 06:29 Dose: 4 units Nystatin (Mycostatin Cream -) 1 applic TP BID [facility] Last Admin: 10/25/18 10:11 Dose: 1 applic Pantoprazole Sodium (Protonix Iv) 40 mg IVPUSH DAILY [facility] Last Admin: 10/25/18 09:40 Dose: 40 mg Vital Signs Period Temp Pulse Resp BP Sys/Lambert Pulse Ox Last 24 Hr 100 F-102.9 F 84-103 13-21 55-96/41-66 93-98 Constitutional: Yes: Other (intubated) Cardiovascular: Yes: Pulse Irregular, +JVD Respiratory: Yes: Other (= breath sounds b/l, no active wheezing) Gastrointestinal: Yes: Soft, Abdomen, Obese Ext: lower extremities cool bilaterally Edema: Yes Edema: LLE: 1+ (venous stasis), RLE: 1+ (venous stasis) Neurological: Yes: Other (off propofol, but not resonsive) - ....Imaging EKG: Image Reviewed (Rate controlled AF) Assessment/Plan 82M h/o chronic systolic HF, ICD, afib on xarelto, epistaxis p/w coffee ground emesis/GI bleed, alt mental status: 1. Coffee ground emesis/GIB: ulcers - transfuse per critical care, follow H/H. - manage per GI 2. AF: - on carvedilol, digoxin at home: Holding Carvedilol in the setting of hypotension/fever/sepsis. Continue Amio. - holding xarelto for GI bleed - Repeat head CT planned (pt off sedation and not responsive- ?toxic /metabolic? ) 3. Paroxysmal VT, s/p ICD: - multiple prior episodes, prior shocks - monitoring on tele - Cont amio 4. Chronic systolic HF: - EF 40-45% echo 09/2017 - appears volume up on exam, weight up, chest xray with congestion - holding diuretics in current setting of GIB, hypotension on pressors 5. Aneurysm of ascending aorta: - prior reports 5.0 cm, yearly imaging with CT chest and consideration for surgery if >6 cm - 4.8 cm here, no dissection 6. CONSTANTINO: - refuses CPAP at home 7.HLD: - on statin at home, holding while NPO 8. Fever: -fever work up as per Critical Care, ID 9. Hypotension: -Serial CBCs. -on norepi, vasopressin to maintain MAP 60
[2018-10-25] MEDS ORDERED: PT OWN MED DRAWER 7, Y5N ONE ×2 (09:27→11:05)
[2018-10-25] MEDS ORDERED: DEXTROSE 5%-WATER 100 ML IVPB ONE (09:28)
[2018-10-25] MEDS: PANTOPRAZOLE SODIUM 40 MG VIAL IVPUSH SCH (09:40)
[2018-10-25] MEDS: CEFTRIAXONE 2 GM in DEXTROSE 5%-WATER 100 ML IVPB SCH (09:40)
[2018-10-25] MEDS: AMIODARONE HCL 200 MG TABLET (FP) PO SCH (10:07)
[2018-10-25] MEDS: NYSTATIN 100,000 UNIT/GM TOPICAL CREAM 15 GM TUBE TP SCH (10:11)
[2018-10-25] MEDS: VANCOMYCIN HCL 1,500 MG in DEXTROSE 5%-WATER - 500 ML IVPB SCH (11:11)
--- NOTE | 2018-10-25 11:58 | PN ---
Progress Note (short form) - Note Progress Note: Renal follow up for Hypernatremia/CKD Pt seen and examined in the ICU on Vent via ET tube, FiO2 is 60% on Vasopressin and Levophed CVP 18 jameson re-inserted Vital Signs Temperature 102.2 F H 10/25/18 10:00 Pulse Rate 88 10/25/18 11:46 Respiratory Rate 20 10/25/18 10:00 Blood Pressure 73/48 L 10/25/18 11:46 O2 Sat by Pulse Oximetry (%) 98 10/24/18 22:00 Intake & Output 10/22/18 10/23/18 10/24/18 10/25/18 23:59 23:59 23:59 23:59 Intake Total 2942 3693 679 1373 Output Total 200 Balance 2942 3693 679 1173 Weight 140.8 kg 141 kg 142.5 kg 151.9 kg Intubated via ET tube irregular HR, no M/R CTA from anterior exam soft, obese abd + edmea upper extremity and lower extremity CBC, BMP 10/25/18 05:30 10/25/18 05:30 Current Medications Acetaminophen (Ofirmev Injection -) 1,000 mg IVPB Q6H PRN PRN Reason: FEVER Last Admin: 10/25/18 10:48 Dose: 1,000 mg Amiodarone HCl (Cordarone -) 400 mg PO DAILY [facility] Last Admin: 10/25/18 10:07 Dose: 400 mg Atorvastatin Calcium (Lipitor -) 10 mg PO HS [facility] Last Admin: 10/24/18 21:50 Dose: 10 mg Carvedilol (Coreg -) 18.75 mg PO BID [facility] Last Admin: 10/21/18 22:21 Dose: 18.75 mg Chlorhexidine Gluconate (Hibiclens For Decolonization -) 1 applic TP HS [facility] Last Admin: 10/24/18 21:48 Dose: 1 applic Diltiazem HCl (Cardizem Injection -) 20 mg IVPUSH Q4H PRN PRN Reason: TACHYCARDIA Hydrocortisone Sodium Succinate (Solu-Cortef -) 50 mg IVPUSH Q6H-IV [facility] Last Admin: 10/25/18 10:05 Dose: 50 mg IV Flush (Triple Lumen Flush) 4 ml IVPUSH PRN PRN PRN Reason: Protocol Last Admin: 10/23/18 18:34 Dose: 4 ml Ceftriaxone Sodium 2 gm/ (Dextrose) 100 mls @ 100 mls/hr IVPB DAILY [facility]; Protocol Last Admin: 10/25/18 09:40 Dose: 100 mls/hr Vancomycin HCl 1,500 mg/ (Dextrose) 500 mls @ 250 mls/hr IVPB Q24H [facility]; Protocol Last Admin: 10/25/18 11:11 Dose: 250 mls/hr Norepinephrine Bitartrate 8, (000 mcg/ Dextrose) 500 mls @ 18.75 mls/hr IV TITR [facility]; Protocol Last Admin: 10/25/18 11:46 Dose: 30 mcg/min, 112.5 mls/hr Vasopressin 50 units/ Sodium (Chloride) 100 mls @ 4 mls/hr IVPB ASDIR [facility]; Protocol Last Admin: 10/25/18 08:36 Dose: 6 units/hr, 12 mls/hr Insulin Aspart (Novolog Vial Sliding Scale -) 1 vial SQ Q4HPO [facility]; Protocol Last Admin: 10/25/18 10:45 Dose: 4 units Nystatin (Mycostatin Cream -) 1 applic TP BID [facility] Last Admin: 10/25/18 10:11 Dose: 1 applic Pantoprazole Sodium (Protonix Iv) 40 mg IVPUSH DAILY [facility] Last Admin: 10/25/18 09:40 Dose: 40 mg This is a 82 year old gentleman with hx of Afib, Hypertension, DM, CHF with reduced ejection fraction, CKD presented with AMS and upper GI bleed found to have gastric ulcer and worsening hypernatremia. #Hypernatremia (water deficit ~10L) from lack of free water vs DI vs. Osmotic diuresis (high BUN or high salt load) #AK on CKD #GI Bleed #Respiratory failure #HF #Edema Cr worsened from 2 to 3.7 in the last 24 hours likely due to renal hypoprofusion /hypotension continue vaospressers to maintain map > 60 Maintain CVP ~12 no urgent indication for [employer] trend renal function and urine output repeat BMP in evening to monitor K continue ICU care vent support Thank you Bradley Flor DO
--- NOTE | 2018-10-25 12:07 | PN ---
Teaching Attending Note Name of Resident: Aamir Ba ATTENDING PHYSICIAN STATEMENT I saw and evaluated the patient. I reviewed the resident's note and discussed the case with the resident. I agree with the resident's findings and plan as documented. SUBJECTIVE: Pt seen and examined in the ICU. Remains intubated, unresponsive off sedation. Now on high dose levophed and vasopressin gtts. Persistently febrile. OBJECTIVE: Vital Signs Period Temp Pulse Resp BP Sys/Lambert Pulse Ox Last 24 Hr 100 F-102.9 F 84-103 13-21 55-96/41-66 93-98 Intake & Output 10/22/18 10/23/18 10/24/18 10/25/18 23:59 23:59 23:59 23:59 Intake Total 2942 3693 679 1373 Output Total 200 Balance 2942 3693 679 1173 Weight 140.8 kg 141 kg 142.5 kg 151.9 kg Gen: intubated, unresponsive Heart: RRR Lung: scattered rhonchi Abd: soft, nontender Ext: + edema CBC, BMP 10/25/18 05:30 10/25/18 05:30 CXR: bilateral infiltrates Active Medications Acetaminophen (Ofirmev Injection -) 1,000 mg IVPB Q6H PRN PRN Reason: FEVER Last Admin: 10/25/18 10:48 Dose: 1,000 mg Amiodarone HCl (Cordarone -) 400 mg PO DAILY PENDING SALE TO [facility] Last Admin: 10/25/18 10:07 Dose: 400 mg Atorvastatin Calcium (Lipitor -) 10 mg PO HS PENDING SALE TO [facility] Last Admin: 10/24/18 21:50 Dose: 10 mg Carvedilol (Coreg -) 18.75 mg PO BID PENDING SALE TO [facility] Last Admin: 10/21/18 22:21 Dose: 18.75 mg Chlorhexidine Gluconate (Hibiclens For Decolonization -) 1 applic TP HS PENDING SALE TO [facility] Last Admin: 10/24/18 21:48 Dose: 1 applic Diltiazem HCl (Cardizem Injection -) 20 mg IVPUSH Q4H PRN PRN Reason: TACHYCARDIA Hydrocortisone Sodium Succinate (Solu-Cortef -) 50 mg IVPUSH Q6H-IV USHA Last Admin: 10/25/18 10:05 Dose: 50 mg IV Flush (Triple Lumen Flush) 4 ml IVPUSH PRN PRN PRN Reason: Protocol Last Admin: 10/23/18 18:34 Dose: 4 ml Ceftriaxone Sodium 2 gm/ (Dextrose) 100 mls @ 100 mls/hr IVPB DAILY USHA; Protocol Last Admin: 10/25/18 09:40 Dose: 100 mls/hr Vancomycin HCl 1,500 mg/ (Dextrose) 500 mls @ 250 mls/hr IVPB Q24H USHA; Protocol Last Admin: 10/25/18 11:11 Dose: 250 mls/hr Norepinephrine Bitartrate 8, (000 mcg/ Dextrose) 500 mls @ 18.75 mls/hr IV TITR USHA; Protocol Last Admin: 10/25/18 11:46 Dose: 30 mcg/min, 112.5 mls/hr Vasopressin 50 units/ Sodium (Chloride) 100 mls @ 4 mls/hr IVPB ASDIR USHA; Protocol Last Admin: 10/25/18 08:36 Dose: 6 units/hr, 12 mls/hr Insulin Aspart (Novolog Vial Sliding Scale -) 1 vial SQ Q4HPO USHA; Protocol Last Admin: 10/25/18 10:45 Dose: 4 units Nystatin (Mycostatin Cream -) 1 applic TP BID PENDING SALE TO [facility] Last Admin: 10/25/18 10:11 Dose: 1 applic Pantoprazole Sodium (Protonix Iv) 40 mg IVPUSH DAILY PENDING SALE TO [facility] Last Admin: 10/25/18 09:40 Dose: 40 mg ASSESSMENT AND PLAN: Acute Hypoxic Respiratory Failure Pneumonia ARDS Septic Shock Acute on Chronic Renal Failure GI Bleed likely Upper Acute Blood Loss Anemia LV Systolic Dysfunction s/p ICD Atrial Fibrillation Hypernatremia HTN DM - continue antibiotics - f/u pending cultures - CT head for poor mental status - EEG to r/o nonconvulsive seizure activity - CT C/A/P to investigate source of fevers - IVF to keep CVP 8-12 - titrate pressors to maintain MAP >65 - monitor H/H - transfuse as needed - free water replacement - monitor lytes - rate control - holding anticoagulation - hold all sedation to assess mental status - taper FiO2, PEEP to keep SpO2 >90% - low tidal volume ventilation <6cc/kg/IBW, keep Plat <30 - not a candidate for weaning at this time - enteral feeds - DVT/GI prophylaxis - continue ICU monitoring - poor prognosis, continue discussions regarding goals of care critical care time spent in reviewing chart, evaluating patient and formulating plan 35 min
[2018-10-25] MEDS ORDERED: DOPAMINE 400 MG/D5W - 400,000 MCG/250 ML INFUS.BAG IVPB SCH (12:45)
[2018-10-25 13:00] VITALS: BP 51/30; PULSE 60
[2018-10-25] MEDS ORDERED: CALCIUM CHLORIDE 1 GM/10 ML *DISP.SYRIN ONE (13:10)
[2018-10-25] MEDS ORDERED: EPINEPHrine 1:10,000 (P-F SYR) 1 MG/10 ML DISP.SYRIN ONE (13:10)
--- NOTE | 2018-10-25 13:43 | RAPID ---
Physical Examination Vital Signs: Vital Signs Temperature 102.2 F H 10/25/18 10:00 Pulse Rate 60 10/25/18 12:59 Respiratory Rate 16 10/25/18 11:00 Blood Pressure 51/30 L 10/25/18 12:59 O2 Sat by Pulse Oximetry (%) 98 10/24/18 22:00 Findings/Remarks: Code 99 was called. On arrival patient pulseless w/ CPR in progress. ACLS protocol was started and maintained. Patient's son was at bedside on the phone with his mother, the patient's and HCP. The gravity of the situation was explained to the son. The son verbalized understanding of the situation and expressed that he wished to stop resuscitation efforts. Patient's was in agreement over the phone. Resuscitation efforts were ceased. Patient was apneic without a pulse. He was unsesponsive to physical or verbal stimuli. His pupils were fixed and dilated. Patient was pronounced at 01:25 pm. Please refer to code sheet for complete details. Labs: CBC, BMP 10/25/18 05:30 10/25/18 05:30
--- NOTE | 2018-10-25 13:59 | DS ---
Physical Exam: SUBJECTIVE: Patient seen in ICU. OBJECTIVE: Vital Signs Period Temp Pulse Resp BP Sys/Lambert Pulse Ox Last 24 Hr 100 F-102.9 F 60-103 13-21 51-96/30-66 93-98 PHYSICAL EXAM N/A LABS Laboratory Results - last 24 hr 10/22/18 10/24/18 10/24/18 08:20 15:34 18:12 WBC RBC Hgb Hct MCV MCH MCHC RDW Plt Count MPV Sodium Potassium Chloride Carbon Dioxide Anion Gap BUN Creatinine Creat Clearance w eGFR POC Glucometer 250 215 Random Glucose Calcium Phosphorus Magnesium Total Bilirubin AST ALT Alkaline Phosphatase Total Protein Albumin Blood Type A POSITIVE Antibody Screen Negative Crossmatch See Detail 10/24/18 10/25/18 10/25/18 22:14 04:03 05:30 WBC 18.4 H RBC 3.34 L Hgb 9.6 L Hct 32.0 L MCV 96.0 MCH 28.9 MCHC 30.1 L RDW 18.0 H Plt Count 234 MPV 10.9 Sodium Potassium Chloride Carbon Dioxide Anion Gap BUN Creatinine Creat Clearance w eGFR POC Glucometer 159 245 Random Glucose Calcium Phosphorus Magnesium Total Bilirubin AST ALT Alkaline Phosphatase Total Protein Albumin Blood Type Antibody Screen Crossmatch 10/25/18 10/25/18 10/25/18 05:30 05:43 10:22 WBC RBC Hgb Hct MCV MCH MCHC RDW Plt Count MPV Sodium 147 H Potassium 5.4 H Chloride 112 H Carbon Dioxide 29 Anion Gap 6 L BUN 88 H Creatinine 3.7 H Creat Clearance w eGFR 15.85 POC Glucometer 238 244 Random Glucose 266 H Calcium 7.5 L Phosphorus 5.2 H Magnesium 3.2 H Total Bilirubin 1.1 H AST 52 H ALT 27 Alkaline Phosphatase 147 H Total Protein 5.8 L Albumin 2.4 L Blood Type Antibody Screen Crossmatch HOSPITAL COURSE: Mr Steven is a 82 y/o man with hx of HTN, DM, CHF s/p AICD, AAA, atrial fibrillation on eliquis with hx of epistaxis who was found altered, with hematemesis and loose stool all over himself in bedroom by his son. He was brought to ED where he was slightly altered, vomiting, poorly protecting his airway and was subsequently intubated. His was started on protonix gtt, given 1 PRBC, and taken for CTA abd/pelvis, Head, and chest. No acute pathology on CT head. No new aneurysm noted on CTA. There were bibasilar atelectesis but no new dense infiltrate. He was presumed to have aspirated and was stared on broad spectrum antibiotics. In ED he was hypertensive and agitated. He was started on Cardizem gtt and sedated. He was transferred to ICU where he became hypotensive and both agents were d/c'd in ICU. The patient had upper endoscopy done that visualized non bleeding ulcer in fundus without underlyling lesion/submucosal nodule. He was given multiple units of PRBC. We consulted Cardiology, ID, Nephrology, GI. He was also found to have electrolyte abdormalities, hypernatremia, that resolved after administration of hypotonic fluids. The patient status didn't improve, continued to have fever, he was started on three pressors. The patient went into asystole and was resuscitated according to ACLS protocol. The family arrived and decided on DNR/DNI. The patient . Date of Admission:10/15/18 Date of Discharge: 10/25/18 Minutes to complete discharge: 35 Discharge Summary Reason For Visit: UPPER GASTROINTESTINAL HEMORRHAGE Current Active Problems AICD (automatic cardioverter/defibrillator) present (Acute) RENEA (acute kidney injury) (Acute) Abnormal liver function tests (Acute) Acute blood loss anemia (Acute) Aspiration pneumonia (Acute) CKD (chronic kidney disease) stage 3, GFR 30-59 ml/min (Acute) Diabetic neuropathy (Acute) Hypernatremia (Acute) Hypothyroidism (Acute) Morbid exogenous obesity (Acute) Renal insufficiency (Acute) Sleep apnea (Acute) Upper GI bleed (Acute) Condition: Critical - Instructions Disposition: - Home Medications Comprehensive Discharge Medication List: Ambulatory Orders Atorvastatin Ca [Lipitor] 10 mg PO HS 10/15/17 Carvedilol [Coreg -] 18.75 mg PO BID 10/15/17 Sitagliptin Phosphate [Januvia] 100 mg PO DAILY 10/15/17 Pantoprazole Sodium [Protonix] 40 mg PO DAILY #4 tablet. 10/20/17 Rivaroxaban [Xarelto] 15 mg PO DAILY #30 tab 11/02/17 Amiodarone HCl [Cordarone -] 400 mg PO DAILY 10/15/18 Glyburide 10 mg PO BID 10/15/18 Torsemide [Demadex -] 200 mg PO BID 10/15/18 Problem List - Problems (1) Abnormal liver function tests Code(s): R94.5 - ABNORMAL RESULTS OF LIVER FUNCTION STUDIES (2) Diabetic neuropathy Code(s): E11.40 - TYPE 2 DIABETES MELLITUS WITH DIABETIC NEUROPATHY, UNSP (3) Hypothyroidism Code(s): E03.9 - HYPOTHYROIDISM, UNSPECIFIED (4) Morbid exogenous obesity Code(s): E66.01 - MORBID (SEVERE) OBESITY DUE TO EXCESS CALORIES (5) Renal insufficiency Code(s): N28.9 - DISORDER OF KIDNEY AND URETER, UNSPECIFIED (6) Sleep apnea Code(s): G47.30 - SLEEP APNEA, UNSPECIFIED (7) Upper GI bleed Code(s): K92.2 - GASTROINTESTINAL HEMORRHAGE, UNSPECIFIED (8) Syncope Code(s): R55 - SYNCOPE AND COLLAPSE (9) Volume overload Code(s): E87.70 - FLUID OVERLOAD, UNSPECIFIED (10) Atrial fibrillation Code(s): I48.91 - UNSPECIFIED ATRIAL FIBRILLATION (11) CHF (congestive heart failure) Code(s): I50.9 - HEART FAILURE, UNSPECIFIED (12) Diabetes mellitus Code(s): E11.9 - TYPE 2 DIABETES MELLITUS WITHOUT COMPLICATIONS Qualifiers: Diabetes mellitus type: type 2 (13) Thoracic aortic aneurysm Code(s): I71.2 - THORACIC AORTIC ANEURYSM, WITHOUT RUPTURE (14) Venous stasis Code(s): I87.8 - OTHER SPECIFIED DISORDERS OF VEINS This patient is new to me today: No Emergency Visit: Yes ED Registration Date: 10/15/18 Care time: The patient presented to the Emergency Department on the above date and was hospitalized for further evaluation of their emergent condition. Critical Care patient: No - Discharge Referral Referred to [facility] Med P.C.: No
[2018-10-25 14:28] VITALS: TEMP 107.6
--- NOTE | 2018-10-25 18:06 | PN ---
Physical Exam: SUBJECTIVE: Patient seen and examined. patient febrile intubated and sedated this morning, patient after ROSC unable to be achieved OBJECTIVE: Vital Signs Period Temp Pulse Resp BP Sys/Lambert Pulse Ox Last 24 Hr 101 F-107.6 F 60-103 13-21 51-96/30-66 93-98 GENERAL: The patient is intubated, minimal response to stimuli, obese HEAD: Normal with no signs of trauma. LUNGS: Breath sounds equal, clear to auscultation bilaterally, HEART: Regular rate and rhythm, ICD inplace ABDOMEN: Soft, nontender, nondistended, normoactive bowel sounds EXTREMITIES: 2+ pulses, increasing dependent edema SKIN: Warm, dry, normal turgor, no rashes or lesions noted CBCD WBC 18.4 K/mm3 (4.0-10.0) H 10/25/18 05:30 RBC 3.34 M/mm3 (4.00-5.60) L 10/25/18 05:30 Hgb 9.6 GM/dL (11.7-16.9) L 10/25/18 05:30 Hct 32.0 % (35.4-49) L 10/25/18 05:30 MCV 96.0 fl (80-96) 10/25/18 05:30 MCHC 30.1 g/dl (32.0-35.9) L 10/25/18 05:30 RDW 18.0 % (11.9-15.9) H 10/25/18 05:30 Plt Count 234 K/MM3 (134-434) 10/25/18 05:30 MPV 10.9 fl (7.5-11.1) 10/25/18 05:30 CMP Sodium 147 mmol/L (136-145) H 10/25/18 05:30 Potassium 5.4 mmol/L (3.5-5.1) H 10/25/18 05:30 Chloride 112 mmol/L (98-107) H 10/25/18 05:30 Carbon Dioxide 29 mmol/L (21-32) 10/25/18 05:30 Anion Gap 6 MMOL/L (8-16) L 10/25/18 05:30 BUN 88 mg/dL (7-18) H 10/25/18 05:30 Creatinine 3.7 mg/dL (0.55-1.3) H 10/25/18 05:30 Creat Clearance w eGFR 15.85 (>60) 10/25/18 05:30 Calcium 7.5 mg/dL (8.5-10.1) L 10/25/18 05:30 Total Bilirubin 1.1 mg/dL (0.2-1) H 10/25/18 05:30 AST 52 U/L (15-37) H 10/25/18 05:30 ALT 27 U/L (13-61) 10/25/18 05:30 Alkaline Phosphatase 147 U/L (45-117) H 10/25/18 05:30 Total Protein 5.8 g/dl (6.4-8.2) L 10/25/18 05:30 Albumin 2.4 g/dl (3.4-5.0) L 10/25/18 05:30 ASSESSMENT/PLAN: Patient is a 82 y/o male with a history of afib, HTN, DM, HFrEF w ICD, and AAA who is here for GI bleed. Neuro - intubated and sedated, for airway protection upon arrival - on Versed and Propofol - patient failed weaning trial, - continue weaning trials - head CT and EEG for any changes Cardio - hx afib, carvedilol, amiodarone and rosuvastatin - hx AAA 4.8, f/u yearly imaging - Echo 10/13 EF: 40 -45% - hold po torsemide - ICD in place - hold BP medication for low pressures as needed - continue to hold Xarelto as recent unit PRBC given, wait until H/H stable Pulm - intubated with IPPV - TV 500, R 20, O2 40%, PEEP 8 - CXR; infiltrates, pneumonitis vs aspiration pneumonia - f/u CXR - Chest CT: bilateral lower lobe consolidation/atelectasis, f/u repeat - continue weaning trial daily GI - Upper GI bleed vs vomiting epistaxis, resolved - received 6 units PRBC - EGD: two shallow ulcers found and clotting in the fundus - protonix 40 daily - no further evidence of GI bleed - patient tolerating feeds Neprho - hold IV fluids, patient 3rd spacing - hypernatremia resolving, 152 - continue free water flushes 200 ml Q4 Heme - transfusion threshold 8 - received 6 units - hgb remaining stable - hold AC for now, resume once stable ID - possible PNA vs Pnuemonitis - continue Ceftriaxone day 3, start Vancomycin today, renally dose - Ua with 2+ LE, WBC 10, will send new ucx and change jameson - sputum cx growing E. coli - Ucx and blood cx negative, f/u new blood and urine culture - f/u CT and Abdominal and Pelvic CT scan - tylenol for fever, can also consider cold packs/cooling blanket Endo - SS - 24 units in 24 hours FEN - intubated - monitor NA closely - on promote feeds - hold IV fluids - free water at 800 daily Dispo: patient this afternoon Visit type - Emergency Visit Emergency Visit: No - New Patient This patient is new to me today: No - Critical Care Critical Care patient: Yes Total Critical Care Time (in minutes): 40 Critical Care Statement: The care of this patient involved high complexity decision making to prevent further life threatening deterioration of the patient 's condition and/or to evaluate & treat vital organ system(s) failure or risk of failure.
== END 2018-10-25 13:25 | disposition expired | DRG 207 ==
LOC: JER 10:00 → JERBED 12:07 → JICU 14:14
PROVIDERS: ADMIT Internal Medicine; ATTEND Hospitalist
PROC: 5A1955Z Respiratory Ventilation, Greater than 96 Consecutive Hours (ICD-10-PCS; principal; 2018-10-15)
PROC: 0BH17EZ Insertion of Endotracheal Airway into Trachea, Via Natural or Artificial Opening (ICD-10-PCS; 2018-10-15)
PROC: 30233N1 Transfusion of Nonautologous Red Blood Cells into Peripheral Vein, Percutaneous Approach (ICD-10-PCS; 2018-10-15)
PROC: 0DB68ZX Excision of Stomach, Via Natural or Artificial Opening Endoscopic, Diagnostic (ICD-10-PCS; 2018-10-17)
PROC: 02HV33Z Insertion of Infusion Device into Superior Vena Cava, Percutaneous Approach (ICD-10-PCS; 2018-10-22)
PROC: B548ZZA Ultrasonography of Superior Vena Cava, Guidance (ICD-10-PCS; 2018-10-22)
DX: J69.0 Pneumonitis due to inhalation of food and vomit (principal); J96.00 Acute respiratory failure, unspecified whether with hypoxia or hypercapnia; A41.9 Sepsis, unspecified organism; R65.21 Severe sepsis with septic shock; K92.2 Gastrointestinal hemorrhage, unspecified; I50.22 Chronic systolic (congestive) heart failure; N17.9 Acute kidney failure, unspecified; E87.0 Hyperosmolality and hypernatremia; Z68.42 Body mass index [BMI] 45.0-49.9, adult; I13.0 Hypertensive heart and chronic kidney disease with heart failure and stage 1 through stage 4 chronic kidney disease, or unspecified chronic kidney disease; J98.11 Atelectasis; D62 Acute posthemorrhagic anemia; G93.49 Other encephalopathy; N39.0 Urinary tract infection, site not specified; I48.91 Unspecified atrial fibrillation; Z79.01 Long term (current) use of anticoagulants; Z79.84 Long term (current) use of oral hypoglycemic drugs; E66.9 Obesity, unspecified; I11.0 Hypertensive heart disease with heart failure; I25.10 Atherosclerotic heart disease of native coronary artery without angina pectoris; I71.2 Thoracic aortic aneurysm, without rupture; R04.0 Epistaxis; G47.33 Obstructive sleep apnea (adult) (pediatric); E66.01 Morbid (severe) obesity due to excess calories; E11.40 Type 2 diabetes mellitus with diabetic neuropathy, unspecified; Z95.810 Presence of automatic (implantable) cardiac defibrillator; I87.8 Other specified disorders of veins; E11.65 Type 2 diabetes mellitus with hyperglycemia; K25.9 Gastric ulcer, unspecified as acute or chronic, without hemorrhage or perforation; E11.22 Type 2 diabetes mellitus with diabetic chronic kidney disease; N18.3 Chronic kidney disease, stage 3 (moderate); R94.5 Abnormal results of liver function studies
CPT/HCPCS: 36415; 36430; 36511; 36600; 70450-TC; 71045-TC-FY; 71275-TC; 74174-TC; 80048; 80053; 80076; 81003; 82272; 82436; 82550; 82728; 82803; 82962; 83036; 83516; 83540; 83550; 83605; 83735; 83880; 83930; 83935; 84100; 84133; 84300; 84484; 85025; 85027; 85044; 85610; 85730; 86038; 86704; 86706; 86708; 86803; 86850; 86900; 86901; 86922; 87040; 87070; 87086; 87186; 87205; 87340; 88305-TC; 93005; 93010; 93970-TC; 94002; 94640; 99285-25; G0480; J0131; P9038; P9058